=== PATIENT | male | born 1970 | race Caucasian/White ===

== ENCOUNTER → 2020-04-24 08:55 | Day surgery (SDC) | payer OTHER, SELFPAY ==
[2020-04-24 10:11] VITALS: BMI 18.8
[2020-04-24] MEDS: vedolizumab 300 MG in sodium chloride 0.9% 250 ML 500 MG IV (10:16)
[2020-04-24 10:17] VITALS: BP 120/79; PULSE 107; RESP 18; TEMP 36.2; O2SAT 98
== END ==
PROVIDERS: Visit Provider Nurse Practitioner
DX: G12.21 Amyotrophic lateral sclerosis (principal)
CPT/HCPCS: 96365; J3380; J7050

== ENCOUNTER → 2020-05-14 17:35 | Outpatient (BNVA) | payer OTHER, SELFPAY | PROVIDERS: Visit Provider Dermatology | DX: D48.9 Neoplasm of uncertain behavior, unspecified (principal) | CPT/HCPCS: 88304 ==

== ENCOUNTER 2020-06-19 09:20 | Outpatient (CLI) | payer OTHER, SELFPAY ==
[2020-06-19 09:41] VITALS: BP 108/68; PULSE 108; RESP 18; TEMP 36.4; O2SAT 99
[2020-06-19] MEDS: vedolizumab 300 MG in sodium chloride 0.9% 250 ML 500 MG IV (10:07)
== END 2020-06-19 09:21 | disposition home or self-care (01) ==
PROVIDERS: PCP Family Medicine; Visit Provider Nurse Practitioner
DX: G12.21 Amyotrophic lateral sclerosis (principal)
CPT/HCPCS: 96365; J3380; J7050

== ENCOUNTER 2020-07-05 11:19 | Observation (INO) | payer OTHER, SELFPAY ==
[2020-07-05 11:41] VITALS: BP 107/74; PULSE 110; RESP 18; TEMP 36.3; O2SAT 100; BMI 18.4
--- NOTE | 2020-07-05 14:12 | ED_ITS ---
HPI - COVID General: Chief Complaint: COVID symptoms Stated Complaint: COVID+ 07/03-WORSENING SYMPTOMS Time Seen by Provider: 07/05/20 13:09 Source: patient Mode of arrival: ambulatory Limitations: no limitations Triage information: Has fever, cough or shortness of breath . Exposure to COVID + person last 14 days History of Present Illness: HPI Narrative: Started feeling sick 1 week ago, got tested 3 days ago for COVID-19 and he got results today that he was Covid positive. The patient has ALS and Crohn's disease and takes immunosuppressants for the Crohn's disease MD complaint: known COVID positive Prior covid testing: yes, results known COVID 19 common symptoms: positive fever(s), chills, cough, non-productive cough, fatigue, body aches and throat pain; negative productive cough, dyspnea, headache(s), loss of sense of smell and/or taste, nasal congestion, nausea, vomiting or diarrhea COVID 19 other sytmptoms: negative chest pressure, chest pain, pleuritic pain, requiring oxygen, requiring more oxygen, respiratory distress, cyanosis, lethargy, confusion or new neurological complaints Onset (ago): day(s) (7) Severity: moderate Pertinent comorbid conditions: immunocompromised state Treatment prior to arrival: none COVID Results: No Data to Display Review of Systems General: Reports: 10 or more systems reviewed and unremarkable except in HPI and below Const: Reports: fever(s), chills, body aches and fatigue Eyes: Denies: change in vision or blurry vision ENMT: Reports: throat pain; Denies: nasal congestion Card: Denies: chest pain Resp: Reports: non-productive cough; Denies: dyspnea or productive cough GI: Denies: nausea, vomiting or diarrhea : Denies: flank pain, dysuria, urinary frequency, urinary urgency or urinary hesitancy Musc: Denies: neck pain, back pain or extremity swelling Skin/Breast: Denies: rash, pruritus or erythema Neuro: Denies: headache(s) or confusion Endo: Denies: polyuria, polydipsia or tired all the time PFS ED PFSH: Family History Denies family history of Diabetes Hypertension Social History Smoking and tobacco status: never smoked Alcohol intake: current Alcohol intake frequency: holidays/special occasions only History of recent travel: No Physical Exam Const: COMMON NORMALS: no acute distress, average body habitus, patient oriented x3, no limitations, healthy appearing, alert and well nourished Neck/C-Spine: COMMON NORMALS: no meningeal signs and no JVD Resp: COMMON NORMALS: normal respiratory effort, No retractions, No use of accessory muscles, clear to auscultation bilaterally and percussion normal AUSCULTATION: clear to auscultation bilaterally PERCUSSION: percussion normal Cardio: COMMON NORMALS: no JVD, regular rate, regular rhythm, S1 normal heart sound present, S2 normal heart sound present, No gallops present (Cardio), No clicks present (Cardio), No murmurs present (Cardio), No rub (Cardio) and Peripheral pulses 2+ throughout RATE: regular rate RHYTHM: regular rhythm HEART SOUNDS: S1 normal heart sound present and S2 normal heart sound present PERIPHERAL PULSES: Peripheral pulses 2+ throughout GI: COMMON NORMALS: Normal to inspection, nondistended, normoactive bowel sounds present, Soft to palpation, non-tender, No hepatosplenomegaly present, no masses and no bruits PALPATION: Yes Soft to palpation and Yes No hepatosplenomegaly present Extremity: COMMON NORMALS: normal to inspection, full ROM, capillary refill normal, no calf tenderness and no pedal edema Neuro: COMMON NORMALS: patient oriented x3 SENSORIUM/ORIENTATION: Yes alert MENINGEAL SIGNS: Yes no meningeal signs Skin: COMMON NORMALS: no rashes or lesions noted, no wounds, turgor normal, no jaundice, no petechiae and no mottling GENERAL SKIN EXAM: no rashes or lesions noted and turgor normal Course ED course: 49-year-old male on immunosuppressive therapy who tested positive for COVID-19. He is not hypoxic and not requiring oxygen. He meets the criteria for the monoclonal antibody infusion and he will be given the medication. Vital Signs: Vital signs: Vital Signs Temperature 98.4 F 07/05/20 17:28 Pulse Rate 99 07/05/20 17:28 Respiratory Rate 20 H 07/05/20 17:28 Blood Pressure 107/77 07/05/20 17:28 Pulse Oximetry 94 12/20/20 17:28 MDM - COVID MDM Narrative: Medical decision making narrative: 49-year-old male with COVID- 19 and who was medically cleared for monoclonal antibody infusion. Vital signs were normal in the emergency department, including normal pulse oximetry readings. He is not requiring oxygen and is discharged to the outpatient department for monoclonal antibody infusion Lab Data: Attestation: I reviewed the patient's lab results. COVID Results: No Data to Display Monoclonal Antibody Treatments Inclusion/Exclusion Criteria weight >/= 40 kg and + direct Sars-Cov-2 test less than 7-10 days ago receiving immunosuppressive therapy not requiring hospitalization, not requiring oxygen (if not chronically on o xygen) and no increase oxygen requirement (if chronically on oxygen) Patient education patient/family/caregiver received/reviewed fact sheet, Emergency Use Authorization/unapproved drug status discussed with patient/family/caregiver, alternatives to this treatment discussed with patient/family/caregiver, risks and benefits of medication reviewed with patient/family/caregiver, patient/family/caregiver given opportunity for questions, which were answered and patient consents to receiving Monoclonal Antibody Treatment Plan for treatment Meets criteria for Monoclonal Antibody infusion Ordering Monoclonal Antibody infusion for today Discharge Plan Discharge Patient Disposition: Placed in Observation Admit Provider: Narayan Fine Coding Level of Care Code ED [employer] for Clary Yo
[2020-07-05 15:30] VITALS: BP 109/80; PULSE 95; RESP 18; TEMP 36.6; O2SAT 95
[2020-07-05 15:45] VITALS: BP 105/73; PULSE 92; RESP 20; TEMP 36.8; O2SAT 96
[2020-07-05 16:00] VITALS: BP 105/72; PULSE 100; RESP 18; TEMP 36.6; O2SAT 95
[2020-07-05 16:30] VITALS: BP 110/77; PULSE 97; RESP 17; TEMP 36.6; O2SAT 96
[2020-07-05 16:47] LABS: Rapid Strep A Test Negative (Negative)
[2020-07-05 17:28] VITALS: BP 107/77; PULSE 99; RESP 20; TEMP 36.9; O2SAT 94
[2020-07-06 01:18] VITALS: BP 107/77; PULSE 99; RESP 20; TEMP 36.9; O2SAT 94
--- NOTE | 2020-07-06 15:52 | DCPLANNER ---
Addendum entered by Vonnie Costa 07/15/20 15:14: later entry - caseworker protective services called patient on 07.08.20 and was unable to speak with patient, left a voicemail for patient to return medical case manager phone call. Addendum entered by Vonnie Costa 07/15/20 15:13: phone manager called to check on patient on day 10 after getting the infusion. phone manager left a voicemail for patient to return medical case manager phone call. Original Note: phone manager had message that patient received the BAM infusion. phone manager called to check on patient after receiving the infusion. Patient stated that he tolerated the infusion well. Before infusion he had a fever, had an extremly sore throat, and had some dizziness. After infusion patient stated that he does not have a fever, he does not have a sore throat, no dizziness, still a little weak. Patient stated that he can feel a big difference. Asked patient about a follow up appointment, patient stated that he does not feel a need for CM to schedule a follow up appointment with primary care, [facility] and says that he is in [facility] with [facility] and if he needs an appointment that he will schedule it.
== END 2020-07-05 18:00 | disposition home or self-care (01) ==
LOC: ER 13:48 → MEDSURG 14:33
PROVIDERS: Admitting Provider Internal Medicine; Emergency Provider Family Medicine; PCP Family Medicine; Visit Provider Hospitalist
DX: U07.1 COVID-19 (principal)
CPT/HCPCS: 12345; 87081; 87880; 96365; 99281; 99283; G0378; J7050

== ENCOUNTER → 2020-08-14 09:09 | Day surgery (SDC) | payer OTHER, SELFPAY ==
[2020-08-14 09:41] VITALS: BMI 17.7
[2020-08-14 09:47] VITALS: BP 108/69; PULSE 113; RESP 16; TEMP 36.6; O2SAT 99
[2020-08-14] MEDS: vedolizumab 300 MG in sodium chloride 0.9% 250 ML 500 MG IV (10:12)
== END ==
PROVIDERS: PCP Family Medicine; Visit Provider Nurse Practitioner
DX: G12.21 Amyotrophic lateral sclerosis (principal)
CPT/HCPCS: 96365; J3380; J7050

== ENCOUNTER → 2020-10-09 09:33 | Day surgery (SDC) | payer OTHER, SELFPAY ==
[2020-10-09 10:01] VITALS: BP 113/78; PULSE 107; RESP 16; TEMP 36.6; O2SAT 99; BMI 19.2
[2020-10-09 10:10] LABS: Basophils % 0.4 %; Eosinophils # 0.1 10^3/uL (0.0-0.8); Eosinophils % 0.9 %; Hematocrit 44.7 % (42.0-52.0); Hemoglobin 14.3 g/dL (11.7-16.6); Lymphocytes # 1.7 10^3/uL (0.8-4.8); Lymphocytes % 30.3 %; Mean Corpuscular Hemoglobin 30.9 pg (28.0-34.0); Mean Corpuscular Volume 96.5 fL (80-94); Mean Platelet Volume 10.6 fL (7.4-10.4); Monocytes # 0.4 10^3/uL (0.2-0.9); Monocytes % 7.2 %; Neutrophils # 3.46 10^3/uL (1.8-7.7); Nucleated Red Blood Cells % 0 %; Platelet Count 340 10^3/cmm (130-400); Red Blood Count 4.63 10^6/uL (4.1-5.3); Red Cell Distribution Width 13.4 % (12.1-15.1); White Blood Count 5.7 10^3/uL (4.0-10.0)
[2020-10-09] MEDS: vedolizumab 300 MG in sodium chloride 0.9% 250 ML 500 MG IV (10:16)
== END ==
PROVIDERS: PCP Family Medicine; Visit Provider Nurse Practitioner
DX: G12.21 Amyotrophic lateral sclerosis (principal)
CPT/HCPCS: 36415; 85025; 96365; J3380; J7050

== ENCOUNTER → 2020-12-04 08:58 | Day surgery (SDC) | payer OTHER, SELFPAY ==
[2020-12-04 09:22] VITALS: BP 116/86; PULSE 118; RESP 20; TEMP 36.5; O2SAT 99
[2020-12-04] MEDS: vedolizumab 300 MG in sodium chloride 0.9% 250 ML 500 MG IV (09:25)
== END ==
PROVIDERS: PCP Family Medicine; Visit Provider Nurse Practitioner
DX: G12.21 Amyotrophic lateral sclerosis (principal)
CPT/HCPCS: 96365; J3380; J7050

== ENCOUNTER → 2021-01-29 08:49 | Day surgery (SDC) | payer OTHER, SELFPAY ==
[2021-01-29 09:09] VITALS: BMI 17.9
[2021-01-29 09:11] VITALS: BP 95/86; PULSE 108; RESP 16; TEMP 36.4; O2SAT 98
[2021-01-29 09:20] LABS: Basophils % 0.3 %; Eosinophils # 0.1 10^3/uL (0.0-0.8); Eosinophils % 0.9 %; Hematocrit 44.2 % (42.0-52.0); Hemoglobin 14.2 g/dL (11.7-16.6); Lymphocytes # 1.8 10^3/uL (0.8-4.8); Lymphocytes % 27.2 %; Mean Corpuscular HGB Conc 32.1 g/dL (30.0-36.0); Mean Corpuscular Hemoglobin 31.2 pg (28.0-34.0); Mean Corpuscular Volume 97.1 fL (80-94); Mean Platelet Volume 10.9 fL (7.4-10.4); Monocytes # 0.3 10^3/uL (0.2-0.9); Neutrophils # 4.35 10^3/uL (1.8-7.7); Neutrophils % 66.4 %; Nucleated Red Blood Cells % 0 %; Platelet Count 331 10^3/cmm (130-400); Red Blood Count 4.55 10^6/uL (4.1-5.3); Red Cell Distribution Width 13.1 % (12.1-15.1); White Blood Count 6.6 10^3/uL (4.0-10.0)
[2021-01-29] MEDS: vedolizumab 300 MG in sodium chloride 0.9% 250 ML 500 MG IV (09:30)
== END ==
PROVIDERS: PCP Family Medicine; Visit Provider Nurse Practitioner
DX: K51.90 Ulcerative colitis, unspecified, without complications (principal)
CPT/HCPCS: 36415; 85025; 96365; J3380; J7050

== ENCOUNTER → 2021-03-26 09:33 | Day surgery (SDC) | payer OTHER, SELFPAY ==
[2021-03-26 09:42] VITALS: BP 117/66; PULSE 108; RESP 16; TEMP 36.6; O2SAT 98
[2021-03-26 09:44] VITALS: BMI 17.4
[2021-03-26] MEDS: vedolizumab 300 MG in sodium chloride 0.9% 250 ML 500 MG IV (09:58)
== END ==
PROVIDERS: PCP Family Medicine; Visit Provider Nurse Practitioner
DX: K51.90 Ulcerative colitis, unspecified, without complications (principal)
CPT/HCPCS: 96365; J3380; J7050

== ENCOUNTER 2021-03-29 12:09 | Outpatient (CLI) | payer OTHER, SELFPAY ==
[2021-03-29 12:52] LABS: Basophils % 0.4 %; Eosinophils # 0.1 10^3/uL (0.0-0.8); Eosinophils % 0.6 %; Hematocrit 44.9 % (42.0-52.0); Hemoglobin 14.3 g/dL (11.7-16.6); Lymphocytes # 1.6 10^3/uL (0.8-4.8); Mean Corpuscular HGB Conc 31.8 g/dL (30.0-36.0); Mean Corpuscular Hemoglobin 31.4 pg (28.0-34.0); Mean Corpuscular Volume 98.7 fl (80-94); Mean Platelet Volume 10.6 fL (7.4-10.4); Monocytes # 0.7 10^3/uL (0.2-0.9); Monocytes % 8.5 %; Neutrophils % 70.4 %; Nucleated Red Blood Cells % 0 %; Platelet Count 335 10^3/cmm (130-400); Red Blood Count 4.55 10^6/uL (4.1-5.3); White Blood Count 8.1 10^3/uL (4.0-10.0)
== END 2021-03-29 12:10 | disposition home or self-care (01) ==
LOC: LAB 12:21
PROVIDERS: PCP Nurse Practitioner; Visit Provider Nurse Practitioner
DX: K51.90 Ulcerative colitis, unspecified, without complications (principal)
CPT/HCPCS: 36415; 85025

== ENCOUNTER → 2021-05-20 10:23 | Day surgery (SDC) | payer OTHER, SELFPAY ==
[2021-05-20 10:44] VITALS: BP 105/77; PULSE 115; RESP 18; TEMP 36.4; O2SAT 99
[2021-05-20] MEDS: vedolizumab 300 MG in sodium chloride 0.9% 250 ML 250 MG IV (11:06)
[2021-05-20 11:17] LABS: Basophils % 0.6 %; Eosinophils # 0.1 10^3/uL (0.0-0.8); Eosinophils % 1.2 %; Hematocrit 45.9 % (42.0-52.0); Hemoglobin 14.6 g/dL (11.7-16.6); Lymphocytes # 1.6 10^3/uL (0.8-4.8); Lymphocytes % 25.1 %; Mean Corpuscular HGB Conc 31.8 g/dL (30.0-36.0); Mean Corpuscular Hemoglobin 30.9 pg (28.0-34.0); Mean Platelet Volume 11.4 fL (7.4-10.4); Monocytes # 0.5 10^3/uL (0.2-0.9); Monocytes % 7.7 %; Neutrophils # 4.24 10^3/uL (1.8-7.7); Neutrophils % 65.4 %; Nucleated Red Blood Cells % 0 %; Platelet Count 375 10^3/cmm (130-400); Red Blood Count 4.73 10^6/uL (4.1-5.3); Red Cell Distribution Width 13.2 % (12.1-15.1); White Blood Count 6.5 10^3/uL (4.0-10.0)
== END ==
PROVIDERS: PCP Nurse Practitioner; Visit Provider Nurse Practitioner
DX: K51.90 Ulcerative colitis, unspecified, without complications (principal)
CPT/HCPCS: 85025; 96365; J3380; J7050

== ENCOUNTER 2021-06-17 14:22 | Outpatient (CLI) | payer OTHER, SELFPAY | END 2021-06-17 14:23 | disposition home or self-care (01) | LOC: WOUND 14:24 | PROVIDERS: PCP Nurse Practitioner; Visit Provider Emergency Medicine | DX: M21.372 Foot drop, left foot (principal); G12.21 Amyotrophic lateral sclerosis | CPT/HCPCS: 99212 ==

== ENCOUNTER → 2021-07-08 09:38 | Day surgery (SDC) | payer OTHER, SELFPAY ==
[2021-07-08 09:45] VITALS: BP 116/72; PULSE 112; RESP 18; TEMP 36.2; O2SAT 100; BMI 16.9
[2021-07-08 10:03] LABS: Basophils % 0.4 %; Eosinophils % 0.6 %; Hemoglobin 14.4 g/dL (11.7-16.6); Lymphocytes # 1.6 10^3/uL (0.8-4.8); Lymphocytes % 30.5 %; Mean Corpuscular HGB Conc 31.3 g/dL (30.0-36.0); Mean Corpuscular Hemoglobin 30.7 pg (28.0-34.0); Mean Corpuscular Volume 98.1 fl (80-94); Mean Platelet Volume 11.1 fL (7.4-10.4); Monocytes # 0.3 10^3/uL (0.2-0.9); Monocytes % 6.6 %; Neutrophils # 3.18 10^3/uL (1.8-7.7); Neutrophils % 61.7 %; Nucleated Red Blood Cells % 0 %; Platelet Count 334 10^3/cmm (130-400); Red Blood Count 4.69 10^6/uL (4.1-5.3); Red Cell Distribution Width 12.9 % (12.1-15.1); White Blood Count 5.2 10^3/uL (4.0-10.0)
[2021-07-08] MEDS: vedolizumab 300 MG in sodium chloride 0.9% 250 ML 500 MG IV (10:32)
== END ==
PROVIDERS: PCP Nurse Practitioner; Visit Provider Nurse Practitioner
DX: K51.90 Ulcerative colitis, unspecified, without complications (principal)
CPT/HCPCS: 36415; 85025; 96365; J3380; J7050

== ENCOUNTER 2021-08-26 13:00 | Outpatient (RCR) | payer OTHER, SELFPAY | END 2021-09-13 23:59 | disposition home or self-care (01) | LOC: SOT 13:00 | PROVIDERS: PCP Nurse Practitioner; Visit Provider Nurse Practitioner | DX: G12.21 Amyotrophic lateral sclerosis (principal) | CPT/HCPCS: 97165 ==

== ENCOUNTER → 2021-09-02 10:11 | Day surgery (SDC) | payer OTHER, SELFPAY ==
[2021-09-02] MEDS: vedolizumab 300 MG in sodium chloride 0.9% 250 ML 500 MG IV (10:31)
[2021-09-02 10:38] LABS: Basophils % 0.5 %; Eosinophils # 0.1 10^3/uL (0.0-0.8); Eosinophils % 0.9 %; Hematocrit 45.9 % (42.0-52.0); Hemoglobin 14.5 g/dL (11.7-16.6); Lymphocytes # 1.4 10^3/uL (0.8-4.8); Lymphocytes % 25.4 %; Mean Corpuscular HGB Conc 31.6 g/dL (30.0-36.0); Mean Corpuscular Hemoglobin 30.6 pg (28.0-34.0); Mean Corpuscular Volume 96.8 fl (80-94); Mean Platelet Volume 11.1 fL (7.4-10.4); Monocytes # 0.4 10^3/uL (0.2-0.9); Monocytes % 6.7 %; Neutrophils # 3.68 10^3/uL (1.8-7.7); Neutrophils % 66.3 %; Nucleated Red Blood Cells % 0 %; Platelet Count 330 10^3/cmm (130-400); Red Blood Count 4.74 10^6/uL (4.1-5.3); Red Cell Distribution Width 12.7 % (12.1-15.1); White Blood Count 5.6 10^3/uL (4.0-10.0)
[2021-09-02 11:05] VITALS: BP 107/81; PULSE 107; RESP 18; TEMP 36.3; O2SAT 96
== END ==
PROVIDERS: PCP Nurse Practitioner; Visit Provider Nurse Practitioner
DX: G12.21 Amyotrophic lateral sclerosis (principal)
CPT/HCPCS: 85025; 96365; J3380; J7050

== ENCOUNTER → 2021-10-28 10:04 | Day surgery (SDC) | payer OTHER, SELFPAY ==
[2021-10-28] MEDS: vedolizumab 300 MG in sodium chloride 0.9% 250 ML 250 MG IV (10:16)
[2021-10-28 10:19] VITALS: BP 113/74; PULSE 107; RESP 18; TEMP 36.4; O2SAT 98
[2021-10-28 11:37] LABS: Basophils % 0.3 %; Eosinophils # 0.1 10^3/uL (0.0-0.8); Eosinophils % 0.8 %; Hemoglobin 13.6 g/dL (11.7-16.6); Lymphocytes # 1.4 10^3/uL (0.8-4.8); Lymphocytes % 23.3 %; Mean Corpuscular HGB Conc 32.4 g/dL (30.0-36.0); Mean Corpuscular Hemoglobin 30.8 pg (28.0-34.0); Mean Corpuscular Volume 95.2 fl (80-94); Mean Platelet Volume 11.4 fL (7.4-10.4); Monocytes # 0.5 10^3/uL (0.2-0.9); Monocytes % 8.6 %; Neutrophils # 4.02 10^3/uL (1.8-7.7); Neutrophils % 66.8 %; Nucleated Red Blood Cells # 0.1 /100WBC; Nucleated Red Blood Cells % 0.8 %; Platelet Count 376 10^3/cmm (130-400); Red Blood Count 4.41 10^6/uL (4.1-5.3); Red Cell Distribution Width 13.1 % (12.1-15.1)
== END ==
PROVIDERS: PCP Nurse Practitioner; Visit Provider Nurse Practitioner
DX: K51.90 Ulcerative colitis, unspecified, without complications (principal)
CPT/HCPCS: 36415; 85025; 96365; J3380; J7050

== ENCOUNTER → 2021-12-23 09:16 | Day surgery (SDC) | payer OTHER, SELFPAY ==
[2021-12-23] MEDS: vedolizumab 300 MG in sodium chloride 0.9% 250 ML 330 MG IV (09:24)
[2021-12-23 09:28] LABS: Basophils % 0.4 %; Eosinophils # 0.1 10^3/uL (0.0-0.8); Eosinophils % 1.3 %; Hematocrit 45.7 % (42.0-52.0); Hemoglobin 14.3 g/dL (11.7-16.6); Lymphocytes # 1.3 10^3/uL (0.8-4.8); Lymphocytes % 23.4 %; Mean Corpuscular HGB Conc 31.3 g/dL (30.0-36.0); Mean Corpuscular Volume 98.9 fl (80-94); Mean Platelet Volume 10.8 fL (7.4-10.4); Monocytes # 0.4 10^3/uL (0.2-0.9); Monocytes % 6.6 %; Neutrophils # 3.81 10^3/uL (1.8-7.7); Neutrophils % 67.9 %; Nucleated Red Blood Cells % 0 %; Platelet Count 380 10^3/cmm (130-400); Red Blood Count 4.62 10^6/uL (4.1-5.3); Red Cell Distribution Width 13.2 % (12.1-15.1); White Blood Count 5.6 10^3/uL (4.0-10.0)
[2021-12-23 09:36] VITALS: BP 108/71; PULSE 100; RESP 18; TEMP 36.6; O2SAT 99
== END ==
PROVIDERS: PCP Nurse Practitioner; Visit Provider Nurse Practitioner
DX: K51.90 Ulcerative colitis, unspecified, without complications (principal)
CPT/HCPCS: 85025; 96365; J3380; J7050

== ENCOUNTER 2022-01-21 12:06 | Emergency (ER) | payer OTHER, SELFPAY ==
[2022-01-21] VITALS (7 sets, daily range): BP systolic 99–117; BP diastolic 66–83; PULSE 102–112; RESP 16–18; TEMP 37.1; O2SAT 94–100; BMI 15.9
--- NOTE | 2022-01-21 12:59 | XR_ITS ---
WS: [id number] Portable AP semiupright chest, 01/21/2022 Clinical Data: dyspnea/cough Comparison: None. Findings: No nodules, masses or effusions are seen. The heart is normal. The pulmonary vascularity is not increased. No pneumonia or pneumothorax is seen. XR/XR chest 1V portable [id number] Impression: Negative chest.
--- NOTE | 2022-01-21 13:00 | ECG_ITS ---
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 Measurements Intervals [place] Rate: 105 P: 75 MT: 162 QRS: 82 QRSD: 66 T: 81 QT: 293 QTc: 388 Interpretive Statements SINUS TACHYCARDIA POSSIBLE LEFT ATRIAL ENLARGEMENT [-0.1mV P-WAVE IN V1/V2] ABNORMAL RHYTHM ECG No previous ECG available for comparison Electronically Signed On 01-21-2022 18:14:36 CDT by Jesus Best M.D. [id number]
[2022-01-21 13:14] LABS: Basophils % 0.8 %; Hemoglobin 14.9 g/dL (11.7-16.6); Lymphocytes # 0.5 10^3/uL (0.8-4.8); Mean Corpuscular HGB Conc 31.7 g/dL (30.0-36.0); Mean Corpuscular Hemoglobin 30.8 pg (28.0-34.0); Mean Corpuscular Volume 97.3 fl (80-94); Mean Platelet Volume 10.4 fL (7.4-10.4); Monocytes # 0.2 10^3/uL (0.2-0.9); Monocytes % 6.5 %; Neutrophils # 2.73 10^3/uL (1.8-7.7); Neutrophils % 77.4 %; Nucleated Red Blood Cells % 0 %; Platelet Count 204 10^3/cmm (130-400); Red Blood Count 4.83 10^6/uL (4.1-5.3); Red Cell Distribution Width 12.9 % (12.1-15.1); White Blood Count 3.5 10^3/uL (4.0-10.0)
[2022-01-21 13:33] LABS: Alanine Aminotransferase 47 U/L (0-41); Albumin Level 4.2 g/dL (3.5-5.2); Alkaline Phosphatase 69 IU/L (40-130); Anion Gap 14.8 (5-19); Aspartate Amino Transferase 51 U/L (0-40); Blood Urea Nitrogen 10 mg/dL (6-20); Calcium 9.4 mg/dL (8.5-10.5); Carbon Dioxide 30 mmol/L (22-29); Chloride 99 mmol/L (98-107); Globulin 2.9 g/dL (1.3-4.6); Glomerular Filtration Rate 175.3 mL/min (90-130); Glucose 98 mg/dL (65-115); Osmolality Calculated 287 mOsm/kg (285-295); Potassium 4.8 mmol/L (3.5-5.1); Sodium 139 mmol/L (136-145); Total Bilirubin 0.2 mg/dL (0.15-1.2); Total Protein 7.1 g/dL (6.6-8.7)
--- NOTE | 2022-01-21 13:37 | W.ED.FEVER ---
HPI - Fever General: Chief Complaint: Fever Stated Complaint: Fever, hx of ALS Time Seen by Provider: 01/21/22 12:58 Source: patient Mode of arrival: ambulatory Limitations: no limitations History of Present Illness: 51-year-old male presents emergency room complaining of fever off and on for last 3 days. Has been treating with Tylenol at home which has been somewhat effective but he continues to recur. Patient has advanced ALS but is still able to remain somewhat ambulatory. He has not had any other symptoms. He denies any skin ulcers or decubitus ulcers. He has not had any shortness of breath or cough or wheezing is not had any abdominal pain no dysuria urgency or frequency. They did do a home COVID test by antigen that was negative. He denies any other symptoms no vomiting or diarrhea MD elicited complaint: fever Onset (ago): day(s) Exacerbating factors: nothing Relieving factors: nothing Associated symptoms: Deny abdominal pain, flank pain, chills, chest pain, confusion, cough, diarrhea, dysuria, extremity pain, headache(s), myalgias, nasal congestion, nausea, night sweats, rash, rhinorrhea, short of breath, sinus pain, stiffness, sore throat, vaginal discharge, vomiting or weight loss Treatments prior to arrival fever: acetaminophen Review of Systems Const: Reports: fever(s), body aches, fatigue and malaise; Denies: chills or night sweats ENMT: Denies: nasal congestion or sinus pain Card: Denies: chest pain GI: Denies: abdominal pain, nausea, vomiting or diarrhea : Denies: flank pain or dysuria Musc: Denies: neck pain, back pain or extremity pain Skin/Breast: Denies: rash Neuro: Denies: headache(s) or confusion PFS ED PFSH: Medical History ALS (amyotrophic lateral sclerosis) Ulcerative (chronic) enterocolitis Surgical History History of esophageal surgery History of oral surgery Family History Denies family history of Diabetes Hypertension Social History Smoking and tobacco status: never smoked Alcohol intake: current Alcohol intake frequency: holidays/special occasions only History of recent travel: No Physical Exam Const: COMMON NORMALS: no acute distress GENERAL APPEARANCE: cooperative and comfortable ORIENTATION/CONSCIOUSNESS: Yes awake, Yes oriented to person, Yes oriented to place and Yes oriented to time HENMT: COMMON NORMALS: normocephalic, atraumatic, hearing grossly normal bilaterally, external ears normal, EAC's normal, TM's normal bilaterally, Normal nasal mucous membranes and turbinates present, moist oral mucous membranes and oropharynx normal HEAD & SCALP: normocephalic and atraumatic NOSE: Normal nasal mucous membranes and turbinates present EXTERNAL EAR: Yes external ears normal EXTERNAL AUDITORY CANAL: EAC's normal TYMPANIC MEMBRANE: TM's normal bilaterally Eye: COMMON NORMALS: Equal, round and reactive pupils present, EOMs intact bilaterally, conjunctivae normal and no scleral icterus CONJUNCTIVA: Yes conjunctivae normal PUPIL: Yes Equal, round and reactive pupils present Neck/C-Spine: COMMON NORMALS: full ROM, no lymphadenopathy, supple and no JVD Lymph: LYMPHATIC: no lymphadenopathy noted and no lymphedema noted Resp: COMMON NORMALS: normal respiratory effort, No retractions, No use of accessory muscles and clear to auscultation bilaterally AUSCULTATION: clear to auscultation bilaterally Cardio: COMMON NORMALS: no JVD, regular rate, regular rhythm and No murmurs present (Cardio) RATE: regular rate RHYTHM: regular rhythm GI: COMMON NORMALS: Soft to palpation and No hepatosplenomegaly present AUSCULTATION: Yes normoactive bowel sounds PALPATION: Yes Soft to palpation, No Tenderness to palpation present (GI), No Guarding due to palpation present (GI) and Yes No hepatosplenomegaly present Extremity: COMMON NORMALS: normal to inspection, capillary refill normal, no clubbing, cyanosis or edema, no calf tenderness and no pedal edema Neuro: SENSORIUM/ORIENTATION: Yes oriented to person, Yes oriented to place and Yes oriented to time Skin: COMMON NORMALS: no rashes or lesions noted GENERAL SKIN EXAM: no rashes or lesions noted Course Vital Signs: Vital signs: Vital Signs Temperature 98.7 F 01/21/22 12:40 Pulse Rate 103 H 01/21/22 16:00 Respiratory Rate 16 01/21/22 13:00 Blood Pressure 99/70 01/21/22 14:30 Pulse Oximetry 100 01/21/22 16:00 MDM - Fever Medical Decision Making Discussed options with the patient who prefer to go home we will start on Levaquin 750 p.o. daily. Initially he had declined and then his family called back and asked that we send that in so was called into [employer]. Also added a tick panel as patient reported he had been bit had some ticks recently. If he has any worsening or change return otherwise follow-up with his primary care Differential Diagnosis Unlikely calculus of kidney Medical Records I reviewed the patient's medical records. Lab Data I reviewed the patient's lab results. : 01/21/22 13:07 01/21/22 13:07 Radiology Impressions Chest X-Ray 01/21/22 12:59 Impression: Negative chest. Laboratory Results WBC 3.5 10^3/uL (4.0-10.0) L 01/21/22 13:07 RBC 4.83 10^6/uL (4.1-5.3) 01/21/22 13:07 Hgb 14.9 g/dL (11.7-16.6) 01/21/22 13:07 Hct 47.0 % (42.0-52.0) 01/21/22 13:07 MCV 97.3 fl (80-94) H 01/21/22 13:07 MCH 30.8 pg (28.0-34.0) 01/21/22 13:07 MCHC 31.7 g/dL (30.0-36.0) 01/21/22 13:07 RDW 12.9 % (12.1-15.1) 01/21/22 13:07 Plt Count 204 10^3/cmm (130-400) 01/21/22 13:07 MPV 10.4 fL (7.4-10.4) 01/21/22 13:07 Neut % (Auto) 77.4 % 01/21/22 13:07 Lymph % (Auto) 15.0 % 01/21/22 13:07 [place] % (Auto) 6.5 % 01/21/22 13:07 Eos % (Auto) 0.0 % 01/21/22 13:07 Baso % (Auto) 0.8 % 01/21/22 13:07 Neut # (Auto) 2.73 10^3/uL (1.8-7.7) 01/21/22 13:07 Lymph # (Auto) 0.5 10^3/uL (0.8-4.8) L 01/21/22 13:07 [place] # (Auto) 0.2 10^3/uL (0.2-0.9) 01/21/22 13:07 Eos # (Auto) 0.0 10^3/uL (0.0-0.8) 01/21/22 13:07 Baso # (Auto) 0.0 10^3/uL (0.0-0.1) 01/21/22 13:07 Nucleated RBC % (auto) 0 % 01/21/22 13:07 Nucleated RBCs # 0.0 /100WBC 01/21/22 13:07 Sodium 139 mmol/L (136-145) 01/21/22 13:07 Potassium 4.8 mmol/L (3.5-5.1) 01/21/22 13:07 Chloride 99 mmol/L (98-107) 01/21/22 13:07 Carbon Dioxide 30 mmol/L (22-29) H 01/21/22 13:07 Anion Gap 14.8 (5-19) 01/21/22 13:07 BUN 10 mg/dL (6-20) 01/21/22 13:07 Creatinine 0.5 mg/dL (0.7-1.2) L 01/21/22 13:07 GFR Calculation 175.3 mL/min (90-130) H 01/21/22 13:07 Glucose 98 mg/dL (65-115) 01/21/22 13:07 Calculated Osmolality 287 mOsm/kg (285-295) 01/21/22 13:07 Calcium 9.4 mg/dL (8.5-10.5) 01/21/22 13:07 Total Bilirubin 0.2 mg/dL (0.15-1.2) 01/21/22 13:07 AST 51 U/L (0-40) H 01/21/22 13:07 ALT 47 U/L (0-41) H 01/21/22 13:07 Alkaline Phosphatase 69 IU/L (40-130) 01/21/22 13:07 Total Protein 7.1 g/dL (6.6-8.7) 01/21/22 13:07 Albumin 4.2 g/dL (3.5-5.2) 01/21/22 13:07 Globulin 2.9 g/dL (1.3-4.6) 01/21/22 13:07 Urine Color Yellow (Yellow) 01/21/22 13:57 Urine Appearance Clear (CLEAR) 01/21/22 13:57 Urine pH 5 (5-7) 01/21/22 13:57 Ur Specific [place] 1.010 (1.005-1.030) 01/21/22 13:57 Urine Protein Neg (Negative) 01/21/22 13:57 Urine Glucose (UA) Norm (Normal) 01/21/22 13:57 Urine Ketones Negative (Negative) 01/21/22 13:57 Urine Blood Neg (Negative) 01/21/22 13:57 Urine Nitrate Negative (Negative) 01/21/22 13:57 Urine Bilirubin Neg (Negative) 01/21/22 13:57 Urine Urobilinogen Norm mg/dL (Negative) 01/21/22 13:57 Ur Leukocyte Esterase Negative (Negative) 01/21/22 13:57 Coronavirus 229E (PCR) Not detected (NOT DETECT) 01/21/22 14:34 SARS-CoV-2 (PCR) Not detected (NOT DETECT) 01/21/22 14:34 Discharge Plan Discharge Patient Disposition: Home Clinical Impression: Viral infection, ALS (amyotrophic lateral sclerosis) Condition: Stable Prescriptions: No Action mupirocin 2 % ointment 1 applic topical BID Qty: 22 1RF Rx Instructions: Apply to ear BID until healed riluzole 50 mg Tablet 50 mg PO Q12H 0RF omeprazole-sodium bicarbonate 20-1,680 mg Packet 1 packet PO DAILY 0RF Entyvio 300 mg Recon Soln 300 mg IV DIRECTED 0RF Rx Instructions: every 8 weeks nortriptyline 10 mg Capsule 10 mg PO DAILY 0RF Discharge Orders: Discharge ED (Routine); Ordered 01/24/22 Ordered By: Efraín Blevins Referrals: Chel Weinstein FNP [Primary Care Provider] - Discharge Diet: Usual diet Discharge Activity: Increase activity as tolerated Patient Instructions: Opioid Safety Activity Restrictions/Additional Instructions: Return if your symptoms worsen in any way. Coding Level of Care Code ED Rn Compliance for Chg Fwd Exam Comprehensive
[2022-01-21 14:03] LABS: Add Urine Microscopic? NO; Charge for UA Resulting for Rev
[2022-01-21 14:07] LABS: Bilirubin Urine Neg (Negative); Blood Urine Neg (Negative); Glucose Urine UA Norm (Normal); Ketones Urine Negative (Negative); Leukocyte Esterase Urine Negative (Negative); Nitrate Urine Negative (Negative); Protein Urine Neg (Negative); Urine Appearance Clear (CLEAR); Urine Color Yellow (Yellow); Urobilinogen Urine Norm (Negative); pH Urine 5 (5-7)
[2022-01-21 16:49] LABS: Adenovirus Not Detected (NOT DETECT); Chlamydia Pneumoniae Not Detected (NOT DETECT); Coronavirus 229E,HKU1,NL63,OC4 Not Detected (NOT DETECT); Human Metapneumovirus Not Detected (NOT DETECT); Human Rhinovirus/Enterovirus Not Detected (NOT DETECT); Influenza A Not Detected (NOT DETECT); Influenza A H1 Not Detected (NOT DETECT); Influenza A H1-2009 Not Detected (NOT DETECT); Influenza A H3 Not Detected (NOT DETECT); Influenza B Not Detected (NOT DETECT); Mycoplasma Pneumoniae Not Detected (NOT DETECT); Parainfluenza Virus Type 1 Not Detected (NOT DETECT); Parainfluenza Virus Type 2 Not Detected (NOT DETECT); Parainfluenza Virus Type 3 Not Detected (NOT DETECT); Parainfluenza Virus Type 4 Not Detected (NOT DETECT); Respiratory Syncytial Virus A Not Detected (NOT DETECT); Respiratory Syncytial Virus B Not Detected (NOT DETECT); SARS-COV-2 Not Detected (NOT DETECT)
== END 2022-01-21 17:20 | disposition home or self-care (01) ==
PROVIDERS: Emergency Provider Family Medicine; PCP Nurse Practitioner
DX: B34.9 Viral infection, unspecified (principal); G12.21 Amyotrophic lateral sclerosis
CPT/HCPCS: 71045; 80053; 81003; 85025; 87040; 87635; 93005; 99285

== ENCOUNTER 2022-01-21 18:48 | Outpatient (CLI) | payer OTHER, SELFPAY ==
[2022-01-24 14:12] LABS: Lyme AB Screen <0.90 index
[2022-01-27 21:32] LABS: E. Chaffeensis AB IGG <1:64; E. Chaffeensis AB IGM <1:20
[2022-01-28 17:27] LABS: RMSF IGG NOT DETECTED; RMSF IGM NOT DETECTED
== END 2022-01-21 18:49 | disposition home or self-care (01) ==
PROVIDERS: PCP Nurse Practitioner; Visit Provider Family Medicine
DX: R50.9 Fever, unspecified (principal)
CPT/HCPCS: 86618; 86666; 86757

== ENCOUNTER → 2022-02-17 10:10 | Day surgery (SDC) | payer OTHER, SELFPAY ==
[2022-02-17] MEDS: vedolizumab 300 MG in sodium chloride 0.9% 250 ML 250 MG IV (10:25)
[2022-02-17 10:32] VITALS: BP 98/71; PULSE 105; RESP 18; TEMP 36.1; O2SAT 99
[2022-02-17 10:40] LABS: Basophils % 0.7 %; Eosinophils % 0.2 %; Hematocrit 45.8 % (42.0-52.0); Hemoglobin 14.3 g/dL (11.7-16.6); Lymphocytes % 34.5 %; Mean Corpuscular HGB Conc 31.2 g/dL (30.0-36.0); Mean Corpuscular Volume 99.1 fl (80-94); Mean Platelet Volume 10.1 fL (7.4-10.4); Monocytes # 0.4 10^3/uL (0.2-0.9); Monocytes % 6.1 %; Neutrophils # 3.46 10^3/uL (1.8-7.7); Neutrophils % 58.3 %; Nucleated Red Blood Cells % 0 %; Platelet Count 383 10^3/cmm (130-400); Red Blood Count 4.62 10^6/uL (4.1-5.3); White Blood Count 5.9 10^3/uL (4.0-10.0)
== END ==
PROVIDERS: PCP Nurse Practitioner; Visit Provider Nurse Practitioner
DX: K51.90 Ulcerative colitis, unspecified, without complications (principal)
CPT/HCPCS: 85025; 96365; J3380; J7050

== ENCOUNTER → 2022-04-14 10:03 | Day surgery (SDC) | payer OTHER, SELFPAY ==
[2022-04-14 10:15] VITALS: BP 119/80; PULSE 110; RESP 18; TEMP 36.6; O2SAT 98
[2022-04-14 10:29] LABS: Basophils % 0.4 %; Eosinophils # 0.1 10^3/uL (0.0-0.8); Eosinophils % 0.5 %; Hematocrit 48.2 % (42.0-52.0); Hemoglobin 15.1 g/dL (11.7-16.6); Lymphocytes # 2.2 10^3/uL (0.8-4.8); Mean Corpuscular HGB Conc 31.3 g/dL (30.0-36.0); Mean Platelet Volume 10.5 fL (7.4-10.4); Monocytes # 0.4 10^3/uL (0.2-0.9); Monocytes % 3.9 %; Neutrophils # 7.78 10^3/uL (1.8-7.7); Neutrophils % 73.9 %; Nucleated Red Blood Cells % 0 %; Platelet Count 360 10^3/cmm (130-400); Red Blood Count 4.87 10^6/uL (4.1-5.3); White Blood Count 10.5 10^3/uL (4.0-10.0)
[2022-04-14] MEDS: vedolizumab 300 MG in sodium chloride 0.9% 250 ML 350 MG IV (10:37)
[2022-04-14 11:09] LABS: Alanine Aminotransferase 58 U/L (0-41); Albumin Level 4.6 g/dL (3.5-5.2); Alkaline Phosphatase 90 U/L (40-130); Anion Gap 15.2 (5-19); Aspartate Amino Transferase 45 U/L (0-40); Blood Urea Nitrogen 18 mg/dL (6-20); Calcium 9.8 mg/dL (8.5-10.5); Carbon Dioxide 33 mmol/L (22-29); Chloride 97 mmol/L (98-107); Globulin 3.1 g/dL (1.3-4.6); Glomerular Filtration Rate 175.3 mL/min (90-130); Glucose 148 mg/dL (65-115); Osmolality Calculated 297 mOsm/kg (285-295); Potassium 4.2 mmol/L (3.5-5.1); Sodium 141 mmol/L (136-145); Total Bilirubin 0.3 mg/dL (0.15-1.2); Total Protein 7.7 g/dL (6.6-8.7)
== END ==
PROVIDERS: PCP Nurse Practitioner; Visit Provider Nurse Practitioner
DX: K51.90 Ulcerative colitis, unspecified, without complications (principal)
CPT/HCPCS: 36415; 80053; 85025; 96365; J3380; J7050

== ENCOUNTER → 2022-06-14 10:00 | Day surgery (SDC) | payer OTHER, SELFPAY ==
[2022-06-14 10:36] LABS: Basophils % 0.4 %; Eosinophils # 0.1 10^3/uL (0.0-0.8); Eosinophils % 0.7 %; Hematocrit 45.5 % (42.0-52.0); Hemoglobin 14.1 g/dL (11.7-16.6); Lymphocytes % 29.4 %; Mean Corpuscular Hemoglobin 30.7 pg (28.0-34.0); Mean Corpuscular Volume 99.1 fl (80-94); Mean Platelet Volume 10.4 fL (7.4-10.4); Monocytes # 0.4 10^3/uL (0.2-0.9); Monocytes % 5.5 %; Neutrophils # 4.32 10^3/uL (1.8-7.7); Neutrophils % 63.9 %; Nucleated Red Blood Cells % 0 %; Platelet Count 354 10^3/cmm (130-400); Red Blood Count 4.59 10^6/uL (4.1-5.3); Red Cell Distribution Width 13.3 % (12.1-15.1); White Blood Count 6.8 10^3/uL (4.0-10.0)
[2022-06-14] MEDS: vedolizumab 300 MG in sodium chloride 0.9% 250 ML 500 MG IV (10:38)
[2022-06-14 10:57] LABS: Alanine Aminotransferase 32 U/L (0-41); Albumin Level 4.5 g/dL (3.5-5.2); Alkaline Phosphatase 68 U/L (40-130); Anion Gap 12.4 (5-19); Aspartate Amino Transferase 29 U/L (0-40); Blood Urea Nitrogen 17 mg/dL (6-20); Calcium 9.8 mg/dL (8.5-10.5); Carbon Dioxide 34 mmol/L (22-29); Chloride 98 mmol/L (98-107); Glomerular Filtration Rate 226.8 mL/min (90-130); Glucose 114 mg/dL (65-115); Osmolality Calculated 292 mOsm/kg (285-295); Potassium 4.4 mmol/L (3.5-5.1); Sodium 140 mmol/L (136-145); Total Bilirubin 0.3 mg/dL (0.15-1.2); Total Protein 7.5 g/dL (6.6-8.7)
[2022-06-14 11:37] VITALS: BP 110/84; PULSE 108; RESP 18; TEMP 36.4; O2SAT 97
== END ==
PROVIDERS: PCP Nurse Practitioner; Visit Provider Nurse Practitioner
DX: K51.90 Ulcerative colitis, unspecified, without complications (principal)
CPT/HCPCS: 80053; 85025; 96365; J3380; J7050

== ENCOUNTER → 2022-07-25 15:25 | Outpatient (BNVA) | payer OTHER, SELFPAY | PROVIDERS: PCP Nurse Practitioner; Visit Provider Thoracic Surgery (Cardiothoracic Vascular Surgery) | DX: L89.612 Pressure ulcer of right heel, stage 2 (principal) | CPT/HCPCS: 97597; A6021; A6210; A6212; A6248 ==

== ENCOUNTER → 2022-08-01 15:59 | Outpatient (BNVA) | payer OTHER, SELFPAY | PROVIDERS: PCP Nurse Practitioner; Visit Provider Thoracic Surgery (Cardiothoracic Vascular Surgery) | DX: L89.612 Pressure ulcer of right heel, stage 2 (principal) | CPT/HCPCS: 97597; A6212 ==

== ENCOUNTER → 2022-08-08 16:36 | Outpatient (BNVA) | payer OTHER, SELFPAY | PROVIDERS: PCP Nurse Practitioner; Visit Provider Thoracic Surgery (Cardiothoracic Vascular Surgery) | DX: L89.612 Pressure ulcer of right heel, stage 2 (principal) | CPT/HCPCS: 97597 ==

== ENCOUNTER → 2022-08-09 10:02 | Day surgery (SDC) | payer OTHER, SELFPAY ==
[2022-08-09 10:20] VITALS: BP 113/83; PULSE 118; RESP 18; TEMP 36.7; O2SAT 100
[2022-08-09] MEDS: vedolizumab 300 MG in sodium chloride 0.9% 250 ML 500 MG IV (10:34)
[2022-08-09 10:38] LABS: Basophils % 0.3 %; Eosinophils % 0.7 %; Hematocrit 44.3 % (42.0-52.0); Hemoglobin 13.8 g/dL (11.7-16.6); Lymphocytes # 1.6 10^3/uL (0.8-4.8); Lymphocytes % 27.1 %; Mean Corpuscular HGB Conc 31.2 g/dL (30.0-36.0); Mean Corpuscular Volume 99.6 fl (80-94); Mean Platelet Volume 10.3 fL (7.4-10.4); Monocytes # 0.3 10^3/uL (0.2-0.9); Monocytes % 5.7 %; Neutrophils # 3.85 10^3/uL (1.8-7.7); Nucleated Red Blood Cells % 0 %; Platelet Count 355 10^3/cmm (130-400); Red Blood Count 4.45 10^6/uL (4.1-5.3); Red Cell Distribution Width 13.3 % (12.1-15.1); White Blood Count 5.8 10^3/uL (4.0-10.0)
[2022-08-09 11:01] LABS: Alanine Aminotransferase 32 U/L (0-41); Albumin Level 4.6 g/dL (3.5-5.2); Alkaline Phosphatase 74 U/L (40-130); Anion Gap 16.4 (5-19); Aspartate Amino Transferase 39 U/L (0-40); Blood Urea Nitrogen 16 mg/dL (6-20); Carbon Dioxide 32 mmol/L (22-29); Chloride 99 mmol/L (98-107); Globulin 2.7 g/dL (1.3-4.6); Glomerular Filtration Rate 226.8 mL/min (90-130); Glucose 118 mg/dL (65-115); Osmolality Calculated 298 mOsm/kg (285-295); Potassium 4.4 mmol/L (3.5-5.1); Sodium 143 mmol/L (136-145); Total Bilirubin 0.3 mg/dL (0.15-1.2); Total Protein 7.3 g/dL (6.6-8.7)
== END ==
PROVIDERS: PCP Nurse Practitioner; Visit Provider Nurse Practitioner
DX: K51.90 Ulcerative colitis, unspecified, without complications (principal)
CPT/HCPCS: 36415; 80053; 85025; 96365; J3380; J7050

== ENCOUNTER → 2022-09-12 16:23 | Outpatient (BNVA) | payer OTHER, SELFPAY | PROVIDERS: PCP Nurse Practitioner; Visit Provider Thoracic Surgery (Cardiothoracic Vascular Surgery) | DX: S90.32XA Contusion of left foot, initial encounter (principal); X58.XXXA Exposure to other specified factors, initial encounter; G12.21 Amyotrophic lateral sclerosis | CPT/HCPCS: 99212; A6212 ==

== ENCOUNTER → 2022-10-04 09:59 | Day surgery (SDC) | payer OTHER, SELFPAY ==
[2022-10-04] MEDS: vedolizumab 300 MG in sodium chloride 0.9% 250 ML 500 MG IV (10:20)
[2022-10-04 10:31] VITALS: BP 115/78; PULSE 104; RESP 18; TEMP 36.4; O2SAT 93
== END ==
PROVIDERS: PCP Nurse Practitioner; Visit Provider Nurse Practitioner
DX: K51.90 Ulcerative colitis, unspecified, without complications (principal)
CPT/HCPCS: 96365; J3380; J7050

== ENCOUNTER → 2022-11-29 10:04 | Day surgery (SDC) | payer OTHER, SELFPAY ==
[2022-11-29] MEDS: vedolizumab 300 MG in sodium chloride 0.9% 250 ML 500 MG IV (10:24)
[2022-11-29 10:26] VITALS: BP 113/89; PULSE 103; RESP 18; TEMP 36.6; O2SAT 96
[2022-11-29 10:28] LABS: Basophils % 0.3 %; Eosinophils % 0.4 %; Hematocrit 43.9 % (42.0-52.0); Hemoglobin 13.7 g/dL (11.7-16.6); Lymphocytes % 26.8 %; Mean Corpuscular HGB Conc 31.2 g/dL (30.0-36.0); Mean Corpuscular Hemoglobin 31.1 pg (28.0-34.0); Mean Corpuscular Volume 99.5 fl (80-94); Mean Platelet Volume 10.5 fL (7.4-10.4); Monocytes # 0.5 10^3/uL (0.2-0.9); Monocytes % 7.2 %; Neutrophils # 4.73 10^3/uL (1.8-7.7); Nucleated Red Blood Cells % 0 %; Platelet Count 371 10^3/cmm (130-400); Red Blood Count 4.41 10^6/uL (4.1-5.3); Red Cell Distribution Width 13.6 % (12.1-15.1); White Blood Count 7.3 10^3/uL (4.0-10.0)
[2022-11-29 10:48] LABS: Alanine Aminotransferase 30 U/L (0-41); Albumin Level 4.5 g/dL (3.5-5.2); Alkaline Phosphatase 78 U/L (40-130); Anion Gap 16.7 (5-19); Aspartate Amino Transferase 30 U/L (0-40); Blood Urea Nitrogen 13 mg/dL (6-20); Calcium 9.7 mg/dL (8.5-10.5); Carbon Dioxide 29 mmol/L (22-29); Chloride 96 mmol/L (98-107); Globulin 3.1 g/dL (1.3-4.6); Glomerular Filtration Rate 225.9 mL/min (90-130); Glucose 123 mg/dL (65-115); Osmolality Calculated 287 mOsm/kg (285-295); Potassium 3.7 mmol/L (3.5-5.1); Sodium 138 mmol/L (136-145); Total Bilirubin 0.3 mg/dL (0.15-1.2); Total Protein 7.6 g/dL (6.6-8.7)
== END ==
PROVIDERS: PCP Nurse Practitioner; Visit Provider Nurse Practitioner
DX: K51.90 Ulcerative colitis, unspecified, without complications (principal); Z79.899 Other long term (current) drug therapy
CPT/HCPCS: 80053; 85025; 96365; J3380; J7050

== ENCOUNTER → 2023-01-24 10:03 | Day surgery (SDC) | payer OTHER, SELFPAY ==
[2023-01-24] MEDS: vedolizumab 300 MG in sodium chloride 0.9% 250 ML 500 MG IV (10:12)
[2023-01-24 10:21] VITALS: BP 114/75; PULSE 100; RESP 18; TEMP 36.3; O2SAT 96
== END ==
PROVIDERS: PCP Nurse Practitioner; Visit Provider Nurse Practitioner
DX: K51.90 Ulcerative colitis, unspecified, without complications (principal); Z79.899 Other long term (current) drug therapy
CPT/HCPCS: 96365; J3380; J7050

== ENCOUNTER 2023-01-30 11:18 | Outpatient (CLI) | payer OTHER, SELFPAY ==
--- NOTE | 2023-01-30 11:27 | US_ITS ---
WS: [id number] Exam: US abdomen limited [id number] Date/Time of Exam: 01/30/2023 12:05 PM Reason For Exam: R LOWER ABDOMEN PAIN The liver, pancreas, and gallbladder were unremarkable. The IVC shows phasic flow. The abdominal aort a is normal in caliber. The common bile duct is not dilated and measures 4.2 mm at greatest diameter. The right kidney appears normal. No solid mass or obstruction. No free fluid or mass in the right ab domen. US/US abdomen limited [id number] IMPRESSION: 1. Unremarkable right abdominal sonogram.
== END 2023-01-30 11:19 | disposition home or self-care (01) ==
PROVIDERS: PCP Nurse Practitioner; Visit Provider Nurse Practitioner
DX: R10.31 Right lower quadrant pain (principal)
CPT/HCPCS: 76705

== ENCOUNTER → 2023-03-21 09:56 | Day surgery (SDC) | payer OTHER, SELFPAY ==
[2023-03-21] MEDS: vedolizumab 300 MG in sodium chloride 0.9% 250 ML 500 MG IV (10:15)
[2023-03-21 10:18] VITALS: BP 118/80; PULSE 106; RESP 18; TEMP 36.2; O2SAT 95
[2023-03-21 10:27] LABS: Basophils % 0.6 %; Eosinophils # 0.1 10^3/uL (0.0-0.8); Eosinophils % 1.1 %; Hematocrit 45.1 % (37-53); Lymphocytes # 1.8 10^3/uL (0.8-4.8); Lymphocytes % 27.8 %; Mean Corpuscular HGB Conc 31.9 g/dL (30-55); Mean Corpuscular Hemoglobin 31.8 pg (27-33); Mean Corpuscular Volume 99.6 fl (82-101); Mean Platelet Volume 10.7 fL (7.4-10.4); Monocytes # 0.4 10^3/uL (0.2-0.9); Monocytes % 6.2 %; Neutrophils # 4.05 10^3/uL (1.8-7.7); Nucleated Red Blood Cells % 0 %; Platelet Count 363 10^3/cmm (157-399); Red Blood Count 4.53 10^6/uL (3.85-5.65); Red Cell Distribution Width 13.5 % (12.1-15.1); White Blood Count 6.33 10^3/uL (3.29-11.43)
[2023-03-21 10:40] LABS: Alanine Aminotransferase 28 U/L (0-41); Albumin Level 4.7 g/dL (3.5-5.2); Alkaline Phosphatase 86 U/L (40-130); Aspartate Amino Transferase 28 U/L (0-40); Blood Urea Nitrogen 16 mg/dL (6-20); Calcium 9.7 mg/dL (8.5-10.5); Carbon Dioxide 30 mmol/L (22-29); Chloride 101 mmol/L (98-107); Glomerular Filtration Rate 314.8 mL/min (90-130); Glucose 108 mg/dL (65-115); Osmolality Calculated 296 mOsm/kg (285-295); Sodium 142 mmol/L (136-145); Total Bilirubin 0.3 mg/dL (0.15-1.2); Total Protein 7.7 g/dL (6.6-8.7)
== END ==
PROVIDERS: PCP Nurse Practitioner; Visit Provider Nurse Practitioner
DX: K51.90 Ulcerative colitis, unspecified, without complications (principal)
CPT/HCPCS: 36415; 80053; 85025; 96365; J3380; J7050

== ENCOUNTER 2023-05-06 14:42 | Emergency (ER) | payer OTHER, SELFPAY ==
[2023-05-06 14:59] VITALS: BP 122/81; PULSE 104; RESP 16; TEMP 36.6; O2SAT 97; BMI 18.7
[2023-05-06 15:52] LABS: Basophils % 0.2 %; Eosinophils % 0.4 %; Hematocrit 43.4 % (37-53); Lymphocytes # 2.6 10^3/uL (0.8-4.8); Lymphocytes % 28.1 %; Mean Corpuscular HGB Conc 31.1 g/dL (30-55); Mean Corpuscular Volume 99.8 fl (82-101); Mean Platelet Volume 10.6 fL (7.4-10.4); Monocytes # 0.6 10^3/uL (0.2-0.9); Monocytes % 6.3 %; Neutrophils # 5.89 10^3/uL (1.8-7.7); Neutrophils % 64.8 %; Nucleated Red Blood Cells % 0 %; Platelet Count 372 10^3/cmm (157-399); Red Blood Count 4.35 10^6/uL (3.85-5.65); Red Cell Distribution Width 13.3 % (12.1-15.1)
[2023-05-06 16:13] LABS: Alanine Aminotransferase 22 U/L (0-41); Albumin Level 4.3 g/dL (3.5-5.2); Alkaline Phosphatase 110 U/L (40-130); Anion Gap 16.3 (5-19); Aspartate Amino Transferase 25 U/L (0-40); Blood Urea Nitrogen 17 mg/dL (6-20); Calcium 9.6 mg/dL (8.5-10.5); Carbon Dioxide 26 mmol/L (22-29); Chloride 104 mmol/L (98-107); Glomerular Filtration Rate 225.9 mL/min (90-130); Glucose 87 mg/dL (65-115); Osmolality Calculated 295 mOsm/kg (285-295); Potassium 4.3 mmol/L (3.5-5.1); Sodium 142 mmol/L (136-145); Total Bilirubin 0.2 mg/dL (0.15-1.2); Total Protein 7.3 g/dL (6.6-8.7)
--- NOTE | 2023-05-06 19:53 | CTR_ITS ---
PROCEDURE INFORMATION: Exam: CT Abdomen And Pelvis With Contrast Exam date and time: 05/06/2023 8:17 PM Age: 52 years old Clinical indication: Prior surgery; Surgery date: 6+ months; Surgery type: Peg tube; Patient HX: Persistent diarrhea x 4 weeks. Unable to bring arms above head due to als. ; Additional info: Diarrhea, HX of uc TECHNIQUE: Imaging protocol: Computed tomography of the abdomen and pelvis with contrast. Radiation optimization: All CT scans at this facility use at least one of these dose optimization techniques: automated exposure control; mA and/or kV adjustment per patient size (includes targeted exams where dose is matched to clinical indication); or iterative reconstruction. Contrast material: OMNI 350; Contrast volume: 75 ml; Contrast route: INTRAVENOUS (IV); REPORTING DATA: Count of CT and Cardiac NM exams in prior 12 months: This patient has received 0 known CTs and 0 known cardiac nuclear medicine studies in the 12 months prior to the current study. COMPARISON: US abdomen limited [id number] 01/30/2023 12:17 PM RADIATION DOSE METRICS: Total DLP (mGy-cm): 1402.11 FINDINGS: Tubes, catheters and devices: Percutaneous gastric tube tip in the stomach. Liver: Hepatic steatosis. Gallbladder and bile ducts: Normal. No calcified stones. No ductal dilation. Pancreas: Normal. No ductal dilation. Spleen: Normal. No splenomegaly. Adrenal glands: Normal. No mass. Kidneys and ureters: Normal. No hydronephrosis. Stomach and bowel: Mid to distal sigmoid colon wall thickening may reflect a colitis. Ybje-wa-icvyjzaj constipation. Appendix: No evidence of appendicitis. Intraperitoneal space: Unremarkable. No free air. No significant fluid collection. Vasculature: Unremarkable. No abdominal aortic aneurysm. Lymph nodes: Unremarkable. No enlarged lymph nodes. Urinary bladder: Unremarkable as visualized. Reproductive: Unremarkable as visualized. Bones/joints: Right subcapital mildly impacted hip fracture suspected. Soft tissues: Unremarkable. CT/CT abdomen pelvis w con* [id number] IMPRESSION: 1. Mid to distal sigmoid colon wall thickening may reflect a colitis. 2. Hepatic steatosis. 3. Percutaneous gastric tube tip in the stomach. 4. [id number] constipation. 5. Right subcapital mildly impacted hip fracture suspected.
[2023-05-06] MEDS: iohexol 350 mg/mL 500 mL Btl (per mL) IV (20:19)
[2023-05-06 20:26] LABS: Erythrocyte Sedimentation Rate 36 mm/hr (0-10)
[2023-05-06 20:30] LABS: C Reactive Protein 12.8 mg/L (0.0-4.9)
--- NOTE | 2023-05-06 20:56 | W.ED.GENADLT ---
HPI - General Adult General: Chief complaint: General Medical Stated complaint: Diarrhea 4 weeks Time Seen by Provider: 05/06/23 14:49 History of Present Illness: 52-year-old male with history of ALS. He has a history of constipation as well. A long history of ulcerative colitis, although he has been controlled with his ulcerative colitis symptoms since being on Entyvio. Several days ago, he felt constipated. His gave him some magnesium citrate, which relieved the constipation. However, he has had diarrhea essentially since that time. He briefly had some left lower quadrant pain, which now seems resolved. Diarrhea has been brisk, but nonbloody. Imodium seems to help to some degree. This is only been given the last couple of days. Associated symptoms: Deny chest pain, dyspnea, headache(s), nausea, rash or vomiting Review of Systems Const: Denies: fever(s) or chills ENMT: Denies: throat pain Card: Denies: chest pain Resp: Denies: dyspnea GI: Reports: abdominal pain (Briefly), diarrhea and change in bowel habits; Denies: nausea, vomiting or hematochezia : Denies: flank pain Skin/Breast: Denies: rash Neuro: Denies: headache(s) PFSH ED PFSH: Medical History ALS (amyotrophic lateral sclerosis) Ulcerative (chronic) enterocolitis Surgical History History of esophageal surgery History of oral surgery Family History Denies family history of Diabetes Hypertension Social History Smoking and tobacco/nicotine status: never used tobacco/nicotine Alcohol intake: current Alcohol intake frequency: holidays/special occasions only Substance/Drug Use: never Physical Exam Const: COMMON NORMALS: no acute distress GENERAL APPEARANCE: cooperative and frail appearing (Mildly) HENMT: COMMON NORMALS: normocephalic, atraumatic and Normal external nose present HEAD & SCALP: normocephalic and atraumatic FACE & SINUS: normal facial exam and face symmetric NOSE: Normal external nose present Eye: COMMON NORMALS: Equal, round and reactive pupils present and EOMs intact bilaterally PUPIL: Yes Equal, round and reactive pupils present Neck/C-Spine: GENERAL: Yes trachea midline Chest: CHEST: Yes Symmetrical chest wall rise Resp: COMMON NORMALS: normal respiratory effort, No retractions, No use of accessory muscles and clear to auscultation bilaterally AUSCULTATION: clear to auscultation bilaterally Cardio: COMMON NORMALS: regular rate and regular rhythm RATE: regular rate RHYTHM: regular rhythm GI: COMMON NORMALS: Normal to inspection, nondistended, normoactive bowel sounds present PALPATION: No Tenderness to palpation present (GI) and No Guarding due to palpation present (GI) Extremity: COMMON NORMALS: no pedal edema Neuro: GOSIA COMA SCALE: document GCS findings Gosia coma scale eye opening: Spontaneous [place] coma scale verbal response: Orientated [place] coma scale motor response: Obey commands [place] coma scale total score: 15 Psych: COMMON NORMALS: mental status grossly normal Skin: COMMON NORMALS: no rashes or lesions noted GENERAL SKIN EXAM: no rashes or lesions noted Course Vital Signs: Vital signs: Vital Signs Temperature 97.8 F 05/06/23 14:59 Pulse Rate 104 H 05/06/23 14:59 Respiratory Rate 16 05/06/23 14:59 Blood Pressure 122/81 05/06/23 14:59 Pulse Oximetry 97 05/06/23 14:59 [facility] - General Adult Medical Decision Making The patient's vitals been stable here. He is not in pain. CBC is normal. Sed rate is 36, CRP is 13. Minimal elevations in both. He has mid to distal sigmoid colon wall thickening which may reflect colitis. No diarrhea. He will take ciprofloxacin and Flagyl for diagnosis of colitis. Given his history of ulcerative colitis, he will be placed on a short course of steroid. Interestingly, a right subcapital mildly impacted hip fracture is noted. The patient had fallen with significant right hip pain about 4 weeks ago now. His pain is much improved. He is nonambulatory. Given the fracture is a subacute fracture at this point, and that the patient is not ambulatory, we will let him follow-up as an outpatient with orthopedics for this. Doubtful surgical intervention will be necessary at this point, especially given the patient's comorbidities. He knows to return for worsening symptoms despite treatment. He was told to use the Imodium no more than once a day, to prevent further constipation. Outpatient follow-up. Lab Data 05/06/23 15:45 05/06/23 15:45 Radiology Impressions Abdomen/Pelvis CT 05/06/23 19:53 IMPRESSION: 1. Mid to distal sigmoid colon wall thickening may reflect a colitis. 2. Hepatic steatosis. 3. Percutaneous gastric tube tip in the stomach. 4. [id number] constipation. 5. Right subcapital mildly impacted hip fracture suspected. Laboratory Results WBC 9.10 10^3/uL (3.29-11.43) 05/06/23 15:45 RBC 4.35 10^6/uL (3.85-5.65) 05/06/23 15:45 Hgb 13.50 g/dL (11.27-16.99) 05/06/23 15:45 Hct 43.4 % (37-53) 05/06/23 15:45 MCV 99.8 fl (82-101) 05/06/23 15:45 MCH 31.0 pg (27-33) 05/06/23 15:45 MCHC 31.1 g/dL (30-55) 05/06/23 15:45 RDW 13.3 % (12.1-15.1) 05/06/23 15:45 Plt Count 372 10^3/cmm (157-399) 05/06/23 15:45 MPV 10.6 fL (7.4-10.4) H 05/06/23 15:45 Neut % (Auto) 64.8 % 05/06/23 15:45 Lymph % (Auto) 28.1 % 05/06/23 15:45 [place] % (Auto) 6.3 % 05/06/23 15:45 Eos % (Auto) 0.4 % 05/06/23 15:45 Baso % (Auto) 0.2 % 05/06/23 15:45 Neut # (Auto) 5.89 10^3/uL (1.8-7.7) 05/06/23 15:45 Lymph # (Auto) 2.6 10^3/uL (0.8-4.8) 05/06/23 15:45 [place] # (Auto) 0.6 10^3/uL (0.2-0.9) 05/06/23 15:45 Eos # (Auto) 0.0 10^3/uL (0.0-0.8) 05/06/23 15:45 Baso # (Auto) 0.0 10^3/uL (0.0-0.1) 05/06/23 15:45 Nucleated RBC % (auto) 0 % 05/06/23 15:45 Nucleated RBCs # 0.0 /100WBC 05/06/23 15:45 ESR 36 mm/hr (0-10) H 05/06/23 15:45 Sodium 142 mmol/L (136-145) 05/06/23 15:45 Potassium 4.3 mmol/L (3.5-5.1) 05/06/23 15:45 Chloride 104 mmol/L (98-107) 05/06/23 15:45 Carbon Dioxide 26 mmol/L (22-29) 05/06/23 15:45 Anion Gap 16.3 (5-19) 05/06/23 15:45 BUN 17 mg/dL (6-20) 05/06/23 15:45 Creatinine 0.4 mg/dL (0.7-1.2) L 05/06/23 15:45 GFR Calculation 225.9 mL/min (90-130) H 05/06/23 15:45 Glucose 87 mg/dL (65-115) 05/06/23 15:45 Calculated Osmolality 295 mOsm/kg (285-295) 05/06/23 15:45 Calcium 9.6 mg/dL (8.5-10.5) 05/06/23 15:45 Total Bilirubin 0.2 mg/dL (0.15-1.2) 05/06/23 15:45 AST 25 U/L (0-40) 05/06/23 15:45 ALT 22 U/L (0-41) 05/06/23 15:45 Alkaline Phosphatase 110 U/L (40-130) 05/06/23 15:45 C-Reactive Protein 12.8 mg/L (0.0-4.9) H 05/06/23 15:45 Total Protein 7.3 g/dL (6.6-8.7) 05/06/23 15:45 Albumin 4.3 g/dL (3.5-5.2) 05/06/23 15:45 Globulin 3.0 g/dL (1.3-4.6) 05/06/23 15:45 All radiology interpretation(s) finalized by discharge Discharge Plan Discharge Patient Disposition: Home Clinical Impression: Colitis Closed subcapital fracture of neck of femur Qualifiers: Encounter type: initial encounter Laterality: right Qualified Code(s): S72.011A - Unspecified intracapsular fracture of right femur, initial encounter for closed fracture Condition: Stable Prescriptions: New ciprofloxacin 500 mg/5 mL suspension,microcapsule recon 500 mg PO BID Qty: 40 0RF metronidazole 500 mg tablet 500 mg PO Q8H 7 Days Qty: 21 0RF prednisolone sodium phosphate 15 mg/5 mL (3 mg/mL) solution 30 mg PO DAILY Qty: 50 0RF No Action mupirocin 2 % ointment 1 applic topical BID Qty: 22 1RF Rx Instructions: Apply to ear BID until healed riluzole 50 mg Tablet 50 mg PO Q12H omeprazole-sodium bicarbonate 20-1,680 mg Packet 1 packet PO DAILY Entyvio 300 mg Recon Soln 300 mg IV DIRECTED Rx Instructions: every 8 weeks nortriptyline 10 mg Capsule 10 mg PO DAILY gabapentin 600 mg Tablet 600 mg PO BEDTIME Discharge Orders: Discharge ED (Routine); Ordered 05/06/23 Ordered By: Mendel Ennis Referrals: Chel Weinstein FNP [Primary Care Provider] - 1-3 days Tyler Ramsey DO [Physician] - 4-7 days Patient Instructions: Hip Fracture (ED), Colitis (ED), Opioid Safety, Pain Management Activity Restrictions/Additional Instructions: Call orthopedics on Monday for a follow-up appointment regarding your hip. Antibiotics as directed. You will have to crush the metronidazole and put it in liquid. Return for any worsening symptoms. Stick to 1 dose of Imodium a day if possible. See your doctor this week. Coding Level of Care Code ED Intelligence Operations Specialist for Clary Yo
[2023-05-06] MEDS: pred sod phos 15 mg/5 mL Soln 30mL Btl 30 MG PO (22:06)
[2023-05-06] MEDS: metroNIDAZOLE 500 MG Tablet PO (22:06)
== END 2023-05-06 22:13 | disposition home or self-care (01) ==
PROVIDERS: Nurse Practitioner; Emergency Provider Emergency Medicine; PCP Nurse Practitioner
DX: K52.9 Noninfective gastroenteritis and colitis, unspecified (principal); S72.011A Unspecified intracapsular fracture of right femur, initial encounter for closed fracture; G12.21 Amyotrophic lateral sclerosis; W19.XXXA Unspecified fall, initial encounter
CPT/HCPCS: 36415; 74177; 80053; 85025; 85651; 86140; 99285; J7510; Q9967

== ENCOUNTER → 2023-05-16 10:03 | Day surgery (SDC) | payer OTHER, SELFPAY ==
[2023-05-16] MEDS: vedolizumab 300 MG in sodium chloride 0.9% 250 ML 500 MG IV (10:21)
[2023-05-16 10:29] VITALS: BP 112/81; PULSE 105; RESP 18; TEMP 36.1; O2SAT 95
== END ==
PROVIDERS: PCP Nurse Practitioner; Visit Provider Nurse Practitioner
DX: K51.90 Ulcerative colitis, unspecified, without complications (principal); S72.001A Fracture of unspecified part of neck of right femur, initial encounter for closed fracture; X58.XXXA Exposure to other specified factors, initial encounter
CPT/HCPCS: 27230; 73502; 96365; 99204; J3380; J7050

== ENCOUNTER 2023-05-20 20:51 | Inpatient (IN) | payer OTHER, SELFPAY ==
[2023-05-20] VITALS (16 sets, daily range): BP systolic 92–124; BP diastolic 68–83; PULSE 119–142; RESP 20–34; TEMP 37.5; O2SAT 54–99; BMI 18.8
--- NOTE | 2023-05-20 21:11 | PC.NURSE ---
pt currently wearing trilogy JOHN mask, room air, oxygen sat 95%
--- NOTE | 2023-05-20 21:32 | CTR_ITS ---
PROCEDURE INFORMATION: Exam: CTA Chest With Contrast Exam date and time: 05/20/2023 9:55 PM Age: 52 years old Clinical indication: Shortness of breath; Prior surgery; Surgery date: 6+ months; Surgery type: Peg tube; Patient HX: SOB with hypoxia and tachycardia. Diarrhea. History of ulcerative colitis. Patient has als. ; Additional info: Tachycardia, SOB, diarrhea TECHNIQUE: Imaging protocol: Computed tomographic angiography of the chest with contrast. Exam focused on the arteries. 3D rendering (Not supervised by radiologist): MIP and/or 3D reconstructed images were created by the technologist. Radiation optimization: All CT scans at this facility use at least one of these dose optimization techniques: automated exposure control; mA and/or kV adjustment per patient size (includes targeted exams where dose is matched to clinical indication); or iterative reconstruction. Contrast material: OMNI 350; Contrast volume: 95 ml; Contrast route: INTRAVENOUS (IV); REPORTING DATA: Count of CT and Cardiac NM exams in prior 12 months: This patient has received [address] and 0 known cardiac nuclear medicine studies in the 12 months prior to the current study. COMPARISON: CR XR chest 1V portable [id number] 01/21/2022 1:39 PM RADIATION DOSE METRICS: Total DLP (mGy-cm): 1944.85 FINDINGS: Pulmonary arteries: Normal. No pulmonary emboli. Aorta: Unremarkable. No aortic aneurysm. No aortic dissection. Lungs: Unremarkable. No consolidation. No masses. Pleural spaces: Unremarkable. No pneumothorax. No pleural effusion. Heart: Unremarkable. No cardiomegaly. No pericardial effusion. Lymph nodes: Unremarkable. No enlarged lymph nodes. Bones/joints: Unremarkable. No acute fracture. Soft tissues: Unremarkable. PROCEDURE INFORMATION: Exam: CT Abdomen And Pelvis With Contrast Exam date and time: 05/20/2023 9:55 PM Age: 52 years old Clinical indication: Shortness of breath; Prior surgery; Surgery date: 6+ months; Surgery type: Peg tube; Patient HX: SOB with hypoxia and tachycardia. Diarrhea. History of ulcerative colitis. Patient has als. ; Additional info: Tachycardia, SOB, diarrhea TECHNIQUE: Imaging protocol: Computed tomography of the abdomen and pelvis with contrast. Radiation optimization: All CT scans at this facility use at least one of these dose optimization techniques: automated exposure control; mA and/or kV adjustment per patient size (includes targeted exams where dose is matched to clinical indication); or iterative reconstruction. Contrast material: OMNI 350; Contrast volume: 95 ml; Contrast route: INTRAVENOUS (IV); REPORTING DATA: Count of CT and Cardiac NM exams in prior 12 months: This patient has received [address] and 0 known cardiac nuclear medicine studies in the 12 months prior to the current study. COMPARISON: CT abdomen pelvis w con* [id number] 05/06/2023 8:17 PM RADIATION DOSE METRICS: Total DLP (mGy-cm): 1944.85 FINDINGS: Tubes, catheters and devices: Gastrostomy catheter well positioned within mid gastric body. Liver: Normal. No mass. Gallbladder and bile ducts: Normal. No calcified stones. No ductal dilation. Pancreas: Normal. No ductal dilation. Spleen: Normal. No splenomegaly. Adrenal glands: Normal. No mass. Kidneys and ureters: Normal. No hydronephrosis. Stomach and bowel: There is smooth mild diffuse colonic wall thickening. Loss of the normal haustral. Negative for pericolonic stranding. Mild right colonic distension with air-fluid levels. Negative for bowel obstruction or perforation. No focal mass. Negative for pneumatosis. Appendix: No evidence of appendicitis. Intraperitoneal space: Unremarkable. No free air. No significant fluid collection. Vasculature: Unremarkable. No abdominal aortic aneurysm. Lymph nodes: Unremarkable. No enlarged lymph nodes. Urinary bladder: Unremarkable as visualized. Reproductive: Unremarkable as visualized. Bones/joints: Unremarkable. No acute fracture. Soft tissues: Unremarkable. CT/CT angio chest w abd pel w con IMPRESSION: No acute findings. IMPRESSION: 1. No distinct focal acute inflammatory changes in the abdomen or pelvis are identified. 2. There is generally mild severity diffuse colonic wall thickening changes as well as mildly prominent mucosal enhancement features. This most likely represents sequela of the known chronic inflammatory bowel disease. Acute flare cannot be excluded.
[2023-05-20] MEDS: sodium chloride 0.9% 1,000 ML 999 ML IV ×2 (21:49→22:56)
--- NOTE | 2023-05-20 21:52 | ED_ITS ---
HPI - General Adult General: Stated complaint: low O2, als, diarrhea Time Seen by Provider: 05/20/23 21:15 History of Present Illness: 52-year-old male with a history of ALS. Said a history of ongoing diarrhea for 4 to 5 weeks now. He was treated with antibiotics and steroids which seem to incompletely improve his symptoms for a week or so. Diarrhea was back and was worse yesterday, and worse today. Today, the patient has been more weak. He has been less able to talk. Oxygen saturations dropped quickly with any exertion whatsoever including talking. He has been febrile as well, as high as 101.6. This improves with Tylenol. He is not having any significant pain. No blood in the stool. No vomiting. He is currently wearing his trilogy machine with improvement in his oxygenation and shortness of breath. Associated symptoms: Reports dyspnea; Deny chest pain, nausea, palpitations or vomiting Review of Systems Const: Reports: fever(s) and body aches ENMT: Denies: throat pain Card: Denies: chest pain or palpitations Resp: Reports: dyspnea; Denies: productive cough or non-productive cough GI: Reports: diarrhea; Denies: abdominal pain, nausea, vomiting, hematochezia or melena PFSH ED PFSH: Medical History ALS (amyotrophic lateral sclerosis) Ulcerative (chronic) enterocolitis Surgical History History of esophageal surgery History of oral surgery Family History Denies family history of Diabetes Hypertension Social History Smoking and tobacco/nicotine status: never used tobacco/nicotine Alcohol intake: never Substance/Drug Use: never Physical Exam Const: GENERAL APPEARANCE: cooperative and frail appearing NUTRITIONAL APPEARANCE: thin HENMT: COMMON NORMALS: normocephalic, hearing grossly normal bilaterally and Normal external nose present HEAD & SCALP: normocephalic FACE & SINUS: normal facial exam and face symmetric NOSE: Normal external nose present Eye: COMMON NORMALS: Equal, round and reactive pupils present and EOMs intact bilaterally PUPIL: Yes Equal, round and reactive pupils present Chest: CHEST: Yes Symmetrical chest wall rise Resp: EFFORT & INSPECTION: Yes symmetric chest movement Cardio: COMMON NORMALS: regular rhythm RATE: tachycardic RHYTHM: regular rhythm GI: COMMON NORMALS: Soft to palpation and non-tender PALPATION: Yes Soft to palpation Extremity: GENERAL: Yes edema (1+) Neuro: GOSIA COMA SCALE: document GCS findings Gosia coma scale eye opening: Spontaneous [place] coma scale verbal response: Orientated Gosia coma scale motor response: Obey commands [place] coma scale total score: 15 Course Vital Signs: Vital signs: Vital Signs Temperature 99.5 F 05/20/23 20:55 Pulse Rate 129 H 05/20/23 23:10 Respiratory Rate 22 H 05/20/23 23:10 Blood Pressure 124/83 05/20/23 23:10 Pulse Oximetry 86 L 05/20/23 23:10 Oxygen Delivery Me thod Room Air 05/20/23 21:46 MDM - General Adult Medical Decision Making 52-year-old male with ALS symptoms, fever, diarrhea, and generalized weakness with some shortness of breath. Shortness of breath is improved on his trilogy machine, and he is breathing room air. Saturations have been good. Blood pressure was initially low, with increased heart rate, but both are improved after 2 L bolus which is essentially a 30 mL/kg bolus. Heart rate is 120, blood pressure is 100 systolic, map is 81. White blood cell count is 35. CRP is significantly elevated at 188. Potassium is 4. CTs were ordered. CTA of the chest is negative. CT of the abdomen and pelvis shows mild severity diffuse colonic wall thickening which could be chronic inflammatory bowel disease versus infection. Given his fever, leukocytosis, and other symptoms, he will be covered for infection. Admission to ICU. His viral panel is negative. He will be covered with vancomycin and Zosyn for broad-spectrum coverage. Vancomycin through the PEG tube for C. difficile coverage as well as IV Flagyl for C. difficile coverage. Spoke with hospitalist on-call. She will see the patient in the ER. Lab Data 05/20/23 21:42 05/20/23 21:42 Radiology Impressions Chest/Abdomen/Pelvis CT 05/20/23 21:32 IMPRESSION: No acute findings. IMPRESSION: 1. No distinct focal acute inflammatory changes in the abdomen or pelvis are identified. 2. There is generally mild severity diffuse colonic wall thickening changes as well as mildly prominent mucosal enhancement features. This most likely represents sequela of the known chronic inflammatory bowel disease. Acute flare cannot be excluded. Laboratory Results WBC 34.69 10^3/uL (3.29-11.43) H* 05/20/23 21:42 RBC 4.67 10^6/uL (3.85-5.65) 05/20/23 21:42 Hgb 14.70 g/dL (11.27-16.99) 05/20/23 21:42 Hct 46.6 % (37-53) 05/20/23 21: MCV 99.8 fl (82-101) 05/20/23 21: MCH 31.5 pg (27-33) 05/20/23 21: MCHC 31.5 g/dL (30-55) 05/20/23 21:42 RDW 14.3 % (12.1-15.1) 05/20/23 21:42 Plt Count 356 10^3/cmm (157-399) 05/20/23 21:42 MPV 10.9 fL (7.4-10.4) H 05/20/23 21:42 Neut % (Auto) 94.1 % 05/20/23 21:42 Lymph % (Auto) 0.9 % 05/20/23 21:42 [place] % (Auto) 3.8 % 05/20/23 21:42 Eos % (Auto) 0.0 % 05/20/23 21:42 Baso % (Auto) 0.2 % 05/20/23 21:42 Neut # (Auto) 32.66 10^3/uL (1.8-7.7) H 05/20/23 21:42 Lymph # (Auto) 0.3 10^3/uL (0.8-4.8) L 05/20/23 21:42 [place] # (Auto) 1.3 10^3/uL (0.2-0.9) H 05/20/23 21:42 Eos # (Auto) 0.0 10^3/uL (0.0-0.8) 05/20/23 21:42 Baso # (Auto) 0.1 10^3/uL (0.0-0.1) 05/20/23 21:42 Nucleated RBC % (auto) 0 % 05/20/23 21:42 Nucleated RBCs # 0.0 /100WBC 05/20/23 21:42 ESR 4 mm/hr (0-10) 05/20/23 21:42 D-Dimer 0.69 ug/mLFEU (0-0.59) H 05/20/23 21:42 Sodium 140 mmol/L (136-145) 05/20/23 21:42 Potassium 4.0 mmol/L (3.5-5.1) 05/20/23 21:42 Chloride 100 mmol/L (98-107) 05/20/23 21:42 Carbon Dioxide 26 mmol/L (22-29) 05/20/23 21:42 Anion Gap 18.0 (5-19) 05/20/23 21:42 BUN 15 mg/dL (6-20) 05/20/23 21:42 Creatinine 0.5 mg/dL (0.7-1.2) L 05/20/23 21:42 GFR Calculation 174.6 mL/min (90-130) H 05/20/23 21:42 Glucose 163 mg/dL (65-115) H 05/20/23 21:42 Calculated Osmolality 294 mOsm/kg (285-295) 05/20/23 21:42 Lactic Acid 4.7 mmol/L (0.5-2.2) H* 05/20/23 21:42 Calcium 9.1 mg/dL (8.5-10.5) 05/20/23 21:42 Phosphorus 3.2 mg/dL (2.5-4.5) 05/20/23 21:42 Magnesium 1.8 mg/dL (1.7-2.3) 05/20/23 21:42 Total Bilirubin 0.4 mg/dL (0.15-1.2) 05/20/23 21:42 AST 21 U/L (0-40) 05/20/23 21:42 ALT 31 U/L (0-41) 05/20/23 21:42 Alkaline Phosphatase 79 U/L (40-130) 05/20/23 21:42 C-Reactive Protein 187.8 mg/L (0.0-4.9) H 05/20/23 21:42 Total Protein 7.1 g/dL (6.6-8.7) 05/20/23 21:42 Albumin 4.0 g/dL (3.5-5.2) 05/20/23 21:42 Globulin 3.1 g/dL (1.3-4.6) 05/20/23 21:42 Lipase 12 U/L (13-60) L 05/20/23 21:42 Procalcitonin 1.83 ng/mL (0-0.5) H 05/20/23 21:42 Nasal Influ A H1 2009 PCR Not detected (NOT DETECT) 05/20/23 21:44 Adenovirus (PCR) Not detected (NOT DETECT) 05/20/23 21:44 C. pneumoniae DNA (PCR) Not detected (NOT DETECT) 05/20/23 21:44 Coronavirus 229E (PCR) Not detected (NOT DETECT) 05/20/23 21:44 Human Metapneumovir PCR Not detected (NOT DETECT) 05/20/23 21:44 Influenza A (H1) PCR Not detected (NOT DETECT) 05/20/23 21:44 Influenza A (H3) PCR Not detected (NOT DETECT) 05/20/23 21:44 Influenza Type A (PCR) Not detected (NOT DETECT) 05/20/23 21:44 Influenza Type B (PCR) Not detected (NOT DETECT) 05/20/23 21:44 M. pneumoniae (PCR) Not detected (NOT DETECT) 05/20/23 21:44 Parainfluenza 1 (PCR) Not detected (NOT DETECT) 05/20/23 21:44 Parainfluenza 2 (PCR) Not detected (NOT DETECT) 05/20/23 21:44 Parainfluenza 3 (PCR) Not detected (NOT DETECT) 05/20/23 21:44 Parainfluenza 4 (PCR) Not detected (NOT DETECT) 05/20/23 21:44 RSV Type A (PCR) Not detected (NOT DETECT) 05/20/23 21:44 RSV Type B (PCR) Not detected (NOT DETECT) 05/20/23 21:44 Entero/Rhino (PCR) Not detected (NOT DETECT) 05/20/23 21:44 SARS-CoV-2 (PCR) Not detected (NOT DETECT) 05/20/23 21:44 All radiology interpretation(s) finalized by discharge Critical Care Time Critical Care Time: Critical Care Time: Yes Total Critical Care Time: 35 Attestation: This case had a high probability of a clinically significant, sudden, or life threatening deterioration of this patient's condition which required my full and direct attention, intervention and personal management. Time is independent of any procedures performed. Discharge Plan Discharge Patient Disposition: Admitted As Inpatient Admit Provider: Jossy Keene Clinical Impression: Sepsis, Colitis Condition: Stable Coding Level of Care Code ED Business Insurance Agent for Clary Yo
[2023-05-20 21:53] LABS: Erythrocyte Sedimentation Rate 4 mm/hr (0-10)
[2023-05-20 21:54] LABS: Basophils # 0.1 10^3/uL (0.0-0.1); Basophils % 0.2 %; Hematocrit 46.6 % (37-53); Lymphocytes # 0.3 10^3/uL (0.8-4.8); Lymphocytes % 0.9 %; Mean Corpuscular HGB Conc 31.5 g/dL (30-55); Mean Corpuscular Hemoglobin 31.5 pg (27-33); Mean Corpuscular Volume 99.8 fl (82-101); Mean Platelet Volume 10.9 fL (7.4-10.4); Monocytes # 1.3 10^3/uL (0.2-0.9); Monocytes % 3.8 %; Neutrophils # 32.66 10^3/uL (1.8-7.7); Neutrophils % 94.1 %; Nucleated Red Blood Cells % 0 %; Platelet Count 356 10^3/cmm (157-399); Red Blood Count 4.67 10^6/uL (3.85-5.65); Red Cell Distribution Width 14.3 % (12.1-15.1)
[2023-05-20 21:56] LABS: White Blood Count 34.69 10^3/uL (3.29-11.43)
[2023-05-20] MEDS: iohexol 350 mg/mL 500 mL Btl (per mL) IV (22:00)
[2023-05-20 22:05] LABS: D Dimer 0.69 ug/mLFEU (0-0.59)
[2023-05-20 22:11] LABS: Alanine Aminotransferase 31 U/L (0-41); Alkaline Phosphatase 79 U/L (40-130); Aspartate Amino Transferase 21 U/L (0-40); Blood Urea Nitrogen 15 mg/dL (6-20); C Reactive Protein 187.8 mg/L (0.0-4.9); Calcium 9.1 mg/dL (8.5-10.5); Carbon Dioxide 26 mmol/L (22-29); Chloride 100 mmol/L (98-107); Globulin 3.1 g/dL (1.3-4.6); Glomerular Filtration Rate 174.6 mL/min (90-130); Glucose 163 mg/dL (65-115); Lipase 12 U/L (13-60); Magnesium 1.8 mg/dL (1.7-2.3); Osmolality Calculated 294 mOsm/kg (285-295); Phosphorus 3.2 mg/dL (2.5-4.5); Sodium 140 mmol/L (136-145); Total Bilirubin 0.4 mg/dL (0.15-1.2); Total Protein 7.1 g/dL (6.6-8.7)
[2023-05-20 22:13] LABS: Lactic Sepsis W/Reflex 4.7 mmol/L (0.5-2.2)
[2023-05-20 22:18] LABS: Procalcitonin 1.83 ng/mL (0-0.5)
[2023-05-20] MEDS: piperacillin-tazobactam 3.375 GM in sodium chloride 0.9% (plus) 50 ML IV (22:55)
[2023-05-20 23:38] LABS: Reflex Lactate Order REFLEX LACTIC ORDERD
[2023-05-20 23:42] LABS: Adenovirus Not Detected (NOT DETECT); Chlamydia Pneumoniae Not Detected (NOT DETECT); Coronavirus 229E,HKU1,NL63,OC4 Not Detected (NOT DETECT); Human Metapneumovirus Not Detected (NOT DETECT); Human Rhinovirus/Enterovirus Not Detected (NOT DETECT); Influenza A Not Detected (NOT DETECT); Influenza A H1 Not Detected (NOT DETECT); Influenza A H1-2009 Not Detected (NOT DETECT); Influenza A H3 Not Detected (NOT DETECT); Influenza B Not Detected (NOT DETECT); Mycoplasma Pneumoniae Not Detected (NOT DETECT); Parainfluenza Virus Type 1 Not Detected (NOT DETECT); Parainfluenza Virus Type 2 Not Detected (NOT DETECT); Parainfluenza Virus Type 3 Not Detected (NOT DETECT); Parainfluenza Virus Type 4 Not Detected (NOT DETECT); Respiratory Syncytial Virus A Not Detected (NOT DETECT); Respiratory Syncytial Virus B Not Detected (NOT DETECT); SARS-COV-2 Not Detected (NOT DETECT)
[2023-05-21] VITALS (56 sets, daily range): BP systolic 87–134; BP diastolic 57–106; PULSE 109–140; RESP 12–35; TEMP 37; O2SAT 84–100
--- NOTE | 2023-05-21 00:30 | PC.NURSE ---
pts vitals were automatically entered, oxygen saturations charted as low d/t bad connection of pulse ox, pt remained in high 90's on room air. pt currently 96% room air.
[2023-05-21] MEDS: vancomycin 1,250 MG/250 ML PIGGYBACK 250 MG IV (01:23)
[2023-05-21] MEDS: vancomycin 100 mg/1 mL Oral Syringe 125 MG PO ×4 (01:23→19:37)
[2023-05-21] MEDS: enoxaparin 40 mg/0.4 mL Syringe SUBCUT (01:50)
[2023-05-21] MEDS: acetaminophen 650 mg/20.3 mL UDC PO ×2 (01:55→15:54)
[2023-05-21] MEDS: metroNIDAZOLE IV 500 MG/100 ML PREMIX 100 MG IV (01:56)
[2023-05-21 01:59] LABS: Lactic Acid level (Lactate) 2.3 mmol/L (0.5-2.2)
--- NOTE | 2023-05-21 02:00 | PM.HP ---
Providers/Chief Complaint Admitting Physician: Jossy Keene MD Primary Care Provider: MORENO Ferrara Chief Complaint: low O2, als, diarrhea History of Present Illness Silvestre Espinosa is a 52 year old male with a past medical history of ALS, chronically chair bound, presenting to the hospital today with fever up to 101 Fahrenheit, generalized body ache and fatigue. Patient started feeling unwell about 5 weeks ago when he developed persistent diarrhea to the point of incontinence, CT of the abdomen pelvis on May 06, 2023 had shown mild to distal sigmoid colon wall thickening suggestive of a colitis. He has a long-term PEG tube, mostly feeds pur?ed food through it. No formula. Incidentally noticed with a right subcapital impacted hip fracture sustained after a fall for which she was managed conservatively. Patient presented to the ER and was treated with oral ciprofloxacin, oral metronidazole and steroids due to her history of ulcerative colitis. Patient is currently on vedolizumab for the past 3 years and has not had any flare of his UC in many years. Last colonoscopy was about 3 years ago. He stopped all antibiotics and steroids approximately 1 week ago. His diarrhea improved, continue to be liquid however the frequency reduced from 1 every hour to 2/day. Patient was also receiving Imodium for symptomatic relief. It was discontinued in the last 1 to 2 days. Patient presents to the hospital today after developing fever up to 101 Fahrenheit at home. This morning he was noted to be febrile, diaphoretic,needing trilogy in the day time as well while typically uses it at night time. Last known NIF ?? 27 per patient's family. Nausea+, no votiming. Denies cough, chest pain, dyapnea, palpitations, syncope , blood in stools or hematemesis. Denies dysuria. 02 sat noted to be 88-95% while on trelegy, taking machine off results in drop in 02 sat. Review of Systems General: Reports: 10 or more systems reviewed and unremarkable except in HPI and below Const: Denies: fever(s), chills or body aches Eyes: Denies: change in vision, blurry vision or photophobia ENMT: Reports: hoarseness; Denies: throat pain, enlarged tonsils, odynophagia or nasal congestion Card: Denies: chest pain, palpitations, irregular heart rhythm, edema, swelling of feet/ankles, lightheadedness, pre-syncope, dyspnea on exertion or orthopnea Resp: Denies: dyspnea, productive cough, non-productive cough, wheezing, stridor, pain on inspiration, change in phlegm color, hemoptysis or chest congestion GI: Denies: abdominal pain, nausea, vomiting, hematemesis, coffee ground emesis, dysphagia, heartburn, diarrhea, constipation, GI cramping, change in stool character, hematochezia or melena : Denies: flank pain, dysuria, urinary frequency, urinary urgency, urinary hesitancy or hematuria Musc: Denies: neck pain, back pain, extremity pain, joint swelling, joint warmth or deformity Neuro: Denies: headache(s), numbness in extremities, weakness in extremities, sensory changes, difficulty walking, frequent falls, dizziness, vertigo, behavioral changes, Slurred speech present or seizure-like activity Psych: Denies: anxiety, depression, suicidal ideation or homicidal ideation Endo: Denies: polyuria, polydipsia, tired all the time, cold intolerance or hot flashes Piero/Lymph: Denies: easy bruising or easy bleeding Medications/Allergies Home Medications Medication Instructions Recorded Confirmed Last Taken Type nortriptyline 10 mg capsule 10 mg PO DAILY 04/24/20 05/16/23 03/21/23 History omeprazole 20 mg-sodium 1 packet PO DAILY 04/24/20 05/16/23 03/21/23 History bicarbonate 1,680 mg oral packet riluzole 50 mg tablet 50 mg PO Q12H 04/24/20 05/16/23 03/21/23 History vedolizumab 300 mg intravenous 300 mg IV DIRECTED 04/24/20 05/16/23 03/21/23 History solution (Entyvio) mupirocin 2 % topical ointment 1 applic topical BID #22 grams 10/15/20 05/16/23 03/21/23 Rx gabapentin 600 mg tablet 600 mg PO BEDTIME 11/29/22 05/16/23 03/21/23 History sertraline 20 mg/mL oral 20 mg PO DAILY 05/16/23 05/16/23 Unknown History concentrate (Zoloft) Allergies Allergy/AdvReac Type Severity Reaction Status Date / Time No Known Allergies Allergy Verified 05/16/23 12:45 PFSH Acute PFSH: Medical History (Updated 05/21/23 @ 06:23 by Jossy Keene MD) ALS (amyotrophic lateral sclerosis) Ulcerative (chronic) enterocolitis Surgical History History of esophageal surgery History of oral surgery Family History Denies family history of Diabetes Hypertension Social History Smoking and tobacco/nicotine status: never used tobacco/nicotine Alcohol intake: never Substance/Drug Use: never Vitals/I&O/Wt Last Vital Signs Temp 98.6 F 05/21/23 00:58 Pulse 113 H 05/21/23 04:45 Resp 12 05/21/23 04:45 BP 112/77 05/21/23 04:45 Pulse Ox 95 05/21/23 04:40 O2 Del Method BiPAP 05/21/23 01:52 CDT 05/20/23 05/20/23 05/21/23 14:59 22:59 05:59 Intake Total 1000 / 1000 50 / 1050 Output Total 175 / 175 Balance 1000 / 1000 -125 / 875 Weight last 48 hrs Weight 57.697 kg Physical Exam Narrative: General: No acute distress, AO x3 HEENT: PERRLA, pupils bilaterally equal and reactive, pallors not present Chest: Normal vesicular breath sounds, no added sounds, equal good air entry bilaterally CVS: S1-S2 regular, no murmurs, no tachycardia, no gallops, no rubs Abdomen: Soft, nontender, no organomegaly, bowel sounds present Neuro: ALS, chronically wheelchair bound Data 05/20/23 21:42 05/21/23 05:32 Micro: Microbiology 05/20/23 21:46 Blood Culture - Preliminary Blood SPECIMEN COLLECTED 05/20/23 21:42 Blood Culture - Preliminary Blood SPECIMEN COLLECTED Other data: [address] [address] [address] Scan Report Signed Patient: Silvestre Espinosa Unit #: [id number] : 1970 Age/Sex: 52 / M ADM Date: 05/20/23 Loc: ER Room/Bed: Attending Dr: Ordering Provider/Ordering MD: Mendel Ennis DO Date of Service: 05/20/23 Procedure(s): CT angio chest w abd pel w con Accession Number(s): [id number] Report Number: [id number] PROCEDURE INFORMATION: Exam: CTA Chest With Contrast Exam date and time: 05/20/2023 9:55 PM Age: 52 years old Clinical indication: Shortness of breath; Prior surgery; Surgery date: 6+ months; Surgery type: Peg tube; Patient HX: SOB with hypoxia and tachycardia. Diarrhea. History of ulcerative colitis. Patient has als. ; Additional info: Tachycardia, SOB, diarrhea TECHNIQUE: Imaging protocol: Computed tomographic angiography of the chest with contrast. Exam focused on the arteries. 3D rendering (Not supervised by radiologist): MIP and/or 3D reconstructed images were created by the technologist. Radiation optimization: All CT scans at this facility use at least one of these dose optimization techniques: automated exposure control; mA and/or kV adjustment per patient size (includes targeted exams where dose is matched to clinical indication); or iterative reconstruction. Contrast material: OMNI 350; Contrast volume: 95 ml; Contrast route: INTRAVENOUS (IV);? REPORTING DATA: Count of CT and Cardiac NM exams in prior 12 months: This patient has received [address] and 0 known cardiac nuclear medicine studies in the 12 months prior to the current study. COMPARISON: CR XR chest 1V portable [id number] 01/21/2022 1:39 PM RADIATION DOSE METRICS: Total DLP (mGy-cm): 1944.85 FINDINGS: Pulmonary arteries: Normal. No pulmonary emboli. Aorta: Unremarkable. No aortic aneurysm. No aortic dissection. Lungs: Unremarkable. No consolidation. No masses. Pleural spaces: Unremarkable. No pneumothorax. No pleural effusion. Heart: Unremarkable. No cardiomegaly. No pericardial effusion. Lymph nodes: Unremarkable. No enlarged lymph nodes. Bones/joints: Unremarkable. No acute fracture. Soft tissues: Unremarkable. PROCEDURE INFORMATION: Exam: CT Abdomen And Pelvis With Contrast Exam date and time: 05/20/2023 9:55 PM Age: 52 years old Clinical indication: Shortness of breath; Prior surgery; Surgery date: 6+ months; Surgery type: Peg tube; Patient HX: SOB with hypoxia and tachycardia. Diarrhea. History of ulcerative colitis. Patient has als. ; Additional info: Tachycardia, SOB, diarrhea TECHNIQUE: Imaging protocol: Computed tomography of the abdomen and pelvis with contrast. Radiation optimization: All CT scans at this facility use at least one of these dose optimization techniques: automated exposure control; mA and/or kV adjustment per patient size (includes targeted exams where dose is matched to clinical indication); or iterative reconstruction. Contrast material: OMNI 350; Contrast volume: 95 ml; Contrast route: INTRAVENOUS (IV);? REPORTING DATA: Count of CT and Cardiac NM exams in prior 12 months: This patient has received [address] and 0 known cardiac nuclear medicine studies in the 12 months prior to the current study. COMPARISON: CT abdomen pelvis w con* [id number] 05/06/2023 8:17 PM RADIATION DOSE METRICS: Total DLP (mGy-cm): 1944.85 FINDINGS: Tubes, catheters and devices: Gastrostomy catheter well positioned within mid gastric body. Liver: Normal. No mass. Gallbladder and bile ducts: Normal. No calcified stones. No ductal dilation. Pancreas: Normal. No ductal dilation. Spleen: Normal. No splenomegaly. Adrenal glands: Normal. No mass. Kidneys and ureters: Normal. No hydronephrosis. Stomach and bowel: There is smooth mild diffuse colonic wall thickening. Loss of the normal haustral. Negative for pericolonic stranding. Mild right colonic distension with air-fluid levels. Negative for bowel obstruction or perforation. No focal mass. Negative for pneumatosis. Appendix: No evidence of appendicitis. Intraperitoneal space: Unremarkable. No free air. No significant fluid collection. Vasculature: Unremarkable. No abdominal aortic aneurysm. Lymph nodes: Unremarkable. No enlarged lymph nodes. Urinary bladder: Unremarkable as visualized. Reproductive: Unremarkable as visualized. Bones/joints: Unremarkable. No acute fracture. Soft tissues: Unremarkable. CT/CT angio chest w abd pel w con IMPRESSION: No acute findings. ? ? IMPRESSION: 1. ? No distinct focal acute inflammatory changes in the abdomen or pelvis are identified. 2. ? There is generally mild severity diffuse colonic wall thickening changes as well as mildly prominent mucosal enhancement features. This most likely represents sequela of the known chronic inflammatory bowel disease. Acute flare cannot be excluded. A&P Assessment and plan (1) Sepsis: Likely sepsis given concerning features including elevated white blood cell count of 34,000, tachycardia, elevated lactate, ongoing diarrhea and history of recent colitis. no current organ dysfunction Source is currently under evaluation. Focal symptoms include persisting diarrhea, slightly improved after receiving antibiotics and steroids about 3 weeks ago however with recurrence earlier today. We will place patient on piperacillin/tazobactam and p.o. vancomycin for possibility of C. difficile empirically Check C. difficile PCR, check enteric bacterial panel Check CMV IgG IgM, blood in stool CMV DNA for possibility of CMV colitis since patient is on Entyvio CTA of the chest without PE, No consolidation. Severity diffuse colonic wall thickening also noted on CAT scan from 1021. Per radiology read it represents most likely sequelae of known chronic inflammatory bowel disease CT of the abdomen and pelvis showing, acute flare not excluded. Placed on prednisone 40 mg daily for now for possibility of a UC flare, though currently this is appearing to be less likely given lack of any abdominal pain and bleeding. 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
[2023-05-21 02:33] LABS: Add Urine Microscopic? YES; Bilirubin Urine Neg (Negative); Blood Urine Trace (Negative); Glucose Urine UA Norm (Normal); Ketones Urine 1+ (Negative); Leukocyte Esterase Urine Trace (Negative); Nitrate Urine Positive (Negative); Protein Urine 1+ (Negative); RBC Urine 0-4 /hpf (0-2); Specific Gravity, Urine 1.005 (1.005-1.030); Squamous Epithelial Cell Urine RARE /hpf (0-5); Urine Appearance Clear (CLEAR); Urine Color Yellow (Yellow); Urobilinogen Urine Neg (Negative); WBC Urine 0-4 /hpf (0-5); pH Urine 6.5 (5-7)
[2023-05-21 02:34] LABS: Add Urine Culture? No
--- NOTE | 2023-05-21 04:38 | PC.NURSE ---
Patient arrived on unit with trilogy machine and motorized wheelchair. Patient's spouse helped to assist staff with transfer and PEG tube administration. Home meds coded by pharmacy and placed in med bins along with peg supplies. Patient has had multiple loose stools with strong smell. CDIFF sample sent off to lab. Patient's spouse instructed in importance of PPE and cleaning with bleach.
[2023-05-21 05:47] LABS: Basophils # 0.1 10^3/uL (0.0-0.1); Basophils % 0.3 %; Hematocrit 41.5 % (37-53); Lymphocytes # 0.7 10^3/uL (0.8-4.8); Lymphocytes % 2.2 %; Mean Corpuscular HGB Conc 30.1 g/dL (30-55); Mean Corpuscular Hemoglobin 31.5 pg (27-33); Mean Corpuscular Volume 104.5 fl (82-101); Mean Platelet Volume 11.2 fL (7.4-10.4); Monocytes # 1.3 10^3/uL (0.2-0.9); Monocytes % 4.1 %; Neutrophils # 29.39 10^3/uL (1.8-7.7); Neutrophils % 92.3 %; Nucleated Red Blood Cells % 0 %; Platelet Count 298 10^3/cmm (157-399); Red Blood Count 3.97 10^6/uL (3.85-5.65); Red Cell Distribution Width 14.4 % (12.1-15.1)
[2023-05-21] MEDS: sodium chloride 0.9% 1,000 ML 75 ML IV ×2 (05:49→19:38)
[2023-05-21] MEDS: piperacillin-tazobactam 3.375 GM in sodium chloride 0.9% (plus) 50 ML IV ×2 (06:01→15:52)
[2023-05-21 06:05] LABS: Alanine Aminotransferase 25 U/L (0-41); Alkaline Phosphatase 68 U/L (40-130); Anion Gap 13.1 (5-19); Aspartate Amino Transferase 17 U/L (0-40); Blood Urea Nitrogen 12 mg/dL (6-20); Calcium 8.3 mg/dL (8.5-10.5); Carbon Dioxide 20 mmol/L (22-29); Chloride 109 mmol/L (98-107); Globulin 2.8 g/dL (1.3-4.6); Glomerular Filtration Rate 502.7 mL/min (90-130); Glucose 117 mg/dL (65-115); Lactate (Lactic Acid level) 1.2 mmol/L (0.5-2.2); Osmolality Calculated 289 mOsm/kg (285-295); Potassium 3.1 mmol/L (3.5-5.1); Sodium 139 mmol/L (136-145); Total Bilirubin 0.2 mg/dL (0.15-1.2); Total Protein 5.8 g/dL (6.6-8.7)
[2023-05-21 06:17] LABS: White Blood Count 31.85 10^3/uL (3.29-11.43)
[2023-05-21] MEDS: lidocaine 1% 5 ML in potassium chloride premix 100 ML 26.25 ML IV (06:40)
[2023-05-21] MEDS: predniSONE 20 mg Tablet 40 MG PEG-TUBE (07:53)
[2023-05-21] MEDS: pantoprazole DR 40 mg Tablet PEG-TUBE (07:54)
--- NOTE | 2023-05-21 09:18 | PC.PHAR ---
PT IS [facility]. FAXED NE FOR MED LIST TO VERIFY. WILL FOLLOW UP ON TUESDAY 05/22 WHEN THEY SEND MED LIST.
[2023-05-21] MEDS: RILUZOLE 50 MG 50 EACH PO ×2 (10:05→20:58)
--- NOTE | 2023-05-21 16:20 | ECG_ITS ---
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 Measurements Intervals [place] Rate: 125 P: 61 IN: 159 QRS: 79 QRSD: 80 T: 69 QT: 392 QTc: 567 Interpretive Statements SINUS TACHYCARDIA ABNORMAL RHYTHM ECG Compared to ECG 01/21/2022 13:49:16 No significant changes Electronically Signed On 05-21-2023 22:32:53 M1 ARMOR CREWMAN by Rosenda Luke M.D. [id number]
[2023-05-21 17:30] LABS: D Dimer 1.14 ug/mLFEU (0-0.59)
[2023-05-21] MEDS: lactated ringers 500 ML 999 ML IV (19:31)
[2023-05-21] MEDS: ondansetron 2 mg/ML SDV 2 mL 4 MG IVP (21:59)
[2023-05-22] VITALS (10 sets, daily range): BP systolic 114–146; BP diastolic 70–86; PULSE 107–120; RESP 13–18; TEMP 36.2–36.7; O2SAT 94–100
[2023-05-22] MEDS: piperacillin-tazobactam 3.375 GM in sodium chloride 0.9% (plus) 50 ML IV ×4 (00:33→23:28)
[2023-05-22] MEDS: vancomycin 100 mg/1 mL Oral Syringe 125 MG PO ×5 (00:34→23:28)
[2023-05-22] MEDS: enoxaparin 40 mg/0.4 mL Syringe SUBCUT (00:34)
[2023-05-22 05:29] LABS: Basophils % 0.2 %; Eosinophils % 0.1 %; Hematocrit 37.1 % (37-53); Lymphocytes # 1.1 10^3/uL (0.8-4.8); Lymphocytes % 5.1 %; Mean Corpuscular HGB Conc 31.5 g/dL (30-55); Mean Corpuscular Hemoglobin 31.5 pg (27-33); Monocytes # 0.7 10^3/uL (0.2-0.9); Monocytes % 3.3 %; Neutrophils # 18.84 10^3/uL (1.8-7.7); Neutrophils % 90.9 %; Nucleated Red Blood Cells % 0 %; Platelet Count 287 10^3/cmm (157-399); Red Blood Count 3.71 10^6/uL (3.85-5.65); Red Cell Distribution Width 14.4 % (12.1-15.1); White Blood Count 20.73 10^3/uL (3.29-11.43)
[2023-05-22 05:54] LABS: Alanine Aminotransferase 20 U/L (0-41); Albumin Level 3.1 g/dL (3.5-5.2); Alkaline Phosphatase 91 U/L (40-130); Anion Gap 11.4 (5-19); Aspartate Amino Transferase 26 U/L (0-40); Blood Urea Nitrogen 8 mg/dL (6-20); Calcium 8.4 mg/dL (8.5-10.5); Carbon Dioxide 25 mmol/L (22-29); Chloride 107 mmol/L (98-107); Globulin 2.8 g/dL (1.3-4.6); Glomerular Filtration Rate 314.8 mL/min (90-130); Glucose 107 mg/dL (65-115); Lactic Sepsis W/Reflex 0.6 mmol/L (0.5-2.2); Magnesium 1.8 mg/dL (1.7-2.3); Osmolality Calculated 289 mOsm/kg (285-295); Potassium 3.4 mmol/L (3.5-5.1); Sodium 140 mmol/L (136-145); Total Bilirubin 0.2 mg/dL (0.15-1.2); Total Protein 5.9 g/dL (6.6-8.7)
--- NOTE | 2023-05-22 06:48 | USCV_ITS ---
Silvestre Espinosa Age: 52 Gender: M : 1970 Exam Date: 05/22/2023 09:01 Ordering Phys: Raymundo Diaz MD Technologist: SABRINA Exam Location: [facility] [place] Indication: Swelling HISTORY: Lower extremity swelling. PROCEDURES: Venous duplex imaging was performed in bilateral lower extremities. The following venous structures were evaluated: common femoral vein, profunda vein, proximal portion of the greater saphenous vein, superficial femoral vein, and the popliteal vein. In addition, the posterior tibial and peroneal trunk were evaluated. Serial compression, augmentation maneuvers, and spectral Doppler flow evaluation were performed. FINDINGS: Normal 2-D Doppler and augmentation and compressibility throughout the lower extremity venous structures. Additional imaging through the proximal calf veins also reveals no thrombus. Limited evaluation of the greater saphenous vein is patent with no thrombus. CONCLUSIONS No DVT bilateral lower extremities. Dr. Becka Faust DO (Electronically Signed) Final Date: 22 May 2023 13:46 S
[2023-05-22] MEDS: predniSONE 20 mg Tablet 40 MG PEG-TUBE (08:45)
[2023-05-22] MEDS: pantoprazole DR 40 mg Tablet PEG-TUBE (08:45)
[2023-05-22 10:24] LABS: Cytomegalovirus Antibody (IGG) <0.60 U/mL; Cytomegalovirus Antibody (IGM) <30.00 AU/mL
[2023-05-22] MEDS: sodium chloride 0.9% 1,000 ML 75 ML IV ×2 (10:30→23:28)
[2023-05-22] MEDS: RILUZOLE 50 MG 50 EACH PO ×2 (10:31→21:00)
--- NOTE | 2023-05-22 11:25 | P.PN_ITS ---
Subjective Subjective: Seen this morning at bedside with caregiver present. Spoke to his on the phone and updated her as well. White count down to 20,000. Lactic acid is normalized. D-dimer 1.14. CT chest requested to rule out PE. Patient has been chronically sinus tachycardic as per family as noted per previous physician. Patient saturating on room air 100%. No longer requiring to wear trilogy in the daytime. He states he feels better. Frequency of diarrhea has also decreased however diarrhea is still present. Follows with Dr. Cazares in [place]. He is on Entyvio for ulcerative colitis. Last dose was last Monday. Patient in good spirits this morning. Afebrile overnight Vitals/I&O/Wt Last Vital Signs Temp 97.4 F L 05/22/23 07:31 Pulse 113 H 05/22/23 07:31 Resp 18 05/22/23 07:31 BP 131/86 05/22/23 07:31 Pulse Ox 100 05/22/23 07:31 O2 Del Method Room Air 05/22/23 03:39 O2 Flow Rate 2 05/21/23 09:40 05/21/23 05/22/23 05/22/23 22:59 06:59 14:59 Intake Total 1550 / 3055 50 / 3105 1050 / 1050 Output Total 125 / 485 Balance 1550 / 2695 -75 / 2620 1050 / 1050 Weight last 48 hrs Weight 57.697 kg Physical Exam Narrative: No acute distress Lungs clear to auscultation bilaterally no wheezes no rhonchi ? Abdomen soft ? Neuro: ALS, chronically wheelchair-bound ? Normal S1-S2 no gross murmurs ? ANO x3. Caregiver at bedside. Data 05/22/23 05:20 05/22/23 05:20 Micro: Microbiology 05/20/23 21:46 Blood Culture - Preliminary Blood NEGATIVE TO DATE 05/20/23 21:42 Blood Culture - Preliminary Blood NEGATIVE TO DATE A&P Assessment and plan (1) Hypoxia: (2) ALS (amyotrophic lateral sclerosis): (3) Diarrhea: (4) Sepsis: (5) Colitis: (6) Hypokalemia: Plan #Sepsis secondary to diarrhea, colitis #Acute hypoxia present on admission - improving #ALS #Ulcerative Collitis, possible flare #Hypokalemia - Potassium 3.4. Replete today ? Sepsis present on admission. - Continue zosyn at this time - Continue PO vancomycin till c.diff result returns - CMV studies, c.diff studies pending at this time - Pt on Entyvio - Pt to f/u with GI Dr. Cazares as outpatient after dc - Continue prednisone 40 mg daily - BCx pending - Continue NS 75 cc/hr - lactic acid has normalized - UCx pending - CT chest r/o PE or consolidation - Continue trilogy as directed - CTA requested. Dimer slightly elevated - Continue rilozule daily - Nortriptaline 10 daily - Check venous doppler Diet: Puree via PEG, may be continued lovenox 40 subc daily Attestations Medical Necessity Statement*: Anticipate another 48 hour stay. Continue above medical management. Patient is improving. Coding Level of Care Code 06531 Diagnoses Hypoxia R09.02 ALS (amyotrophic lateral sclerosis) G12.21 Diarrhea R19.7 Sepsis A41.9 Colitis K52.9 Hypokalemia E87.6
[2023-05-22] MEDS: potassium chloride oral liq 20 mEq/15 mL UDC 40 MEQ PO (13:07)
[2023-05-23] VITALS (7 sets, daily range): BP systolic 124–139; BP diastolic 76–87; PULSE 91–112; RESP 13–18; TEMP 36.4–36.7; O2SAT 96–99
[2023-05-23] MEDS: enoxaparin 40 mg/0.4 mL Syringe SUBCUT ×2 (01:22→23:36)
[2023-05-23 06:20] LABS: Basophils % 0.2 %; Eosinophils % 0.4 %; Hematocrit 36.8 % (37-53); Lymphocytes # 1.3 10^3/uL (0.8-4.8); Lymphocytes % 12.1 %; Mean Corpuscular HGB Conc 30.4 g/dL (30-55); Mean Corpuscular Hemoglobin 30.9 pg (27-33); Mean Corpuscular Volume 101.4 fl (82-101); Mean Platelet Volume 11.7 fL (7.4-10.4); Monocytes # 0.6 10^3/uL (0.2-0.9); Monocytes % 5.3 %; Neutrophils % 81.7 %; Nucleated Red Blood Cells % 0 %; Platelet Count 289 10^3/cmm (157-399); Red Blood Count 3.63 10^6/uL (3.85-5.65); Red Cell Distribution Width 14.3 % (12.1-15.1); White Blood Count 11.12 10^3/uL (3.29-11.43)
[2023-05-23] MEDS: piperacillin-tazobactam 3.375 GM in sodium chloride 0.9% (plus) 50 ML IV ×3 (06:33→23:36)
[2023-05-23] MEDS: vancomycin 100 mg/1 mL Oral Syringe 125 MG PO ×4 (06:34→23:36)
[2023-05-23 06:41] LABS: Blood Urea Nitrogen 5 mg/dL (6-20); Calcium 8.4 mg/dL (8.5-10.5); Carbon Dioxide 26 mmol/L (22-29); Chloride 105 mmol/L (98-107); Glomerular Filtration Rate 502.7 mL/min (90-130); Glucose 86 mg/dL (65-115); Osmolality Calculated 291 mOsm/kg (285-295); Sodium 142 mmol/L (136-145)
[2023-05-23 06:42] LABS: Anion Gap 15.4 (5-19); Potassium 4.4 mmol/L (3.5-5.1)
[2023-05-23] MEDS: predniSONE 20 mg Tablet 40 MG PEG-TUBE (09:56)
[2023-05-23] MEDS: pantoprazole DR 40 mg Tablet PEG-TUBE (09:56)
[2023-05-23] MEDS: RILUZOLE 50 MG 50 EACH PO ×2 (09:56→20:27)
--- NOTE | 2023-05-23 11:50 | PC.RESP ---
Today pt was very adamant that he cannot use the NIF adaptor. Pt states he has only been able to use a mask at clinic.
[2023-05-23] MEDS: sodium chloride 0.9% 1,000 ML 75 ML IV ×2 (12:28→23:36)
--- NOTE | 2023-05-23 13:14 | P.PN_ITS ---
Subjective Subjective: Seen this morning. Patient is still incontinent of stool however diarrhea frequency has decreased. CMV serologies negative so far. C. difficile testing is still pending. Enteric panel is also pending. Patient however subjectively feels better. Energy level is better. at bedside. He sees Dr. Cazares in [place] who is aware of his diarrhea as this started 5 weeks ago. Vitals/I&O/Wt Last Vital Signs Temp 97.6 F 05/23/23 12:00 Pulse 109 H 05/23/23 12:00 Resp 17 05/23/23 12:00 BP 124/80 05/23/23 12:00 Pulse Ox 98 05/23/23 12:00 O2 Del Method Room Air 05/23/23 12:00 O2 Flow Rate 2 05/21/23 09:40 05/22/23 05/23/23 05/23/23 22:59 06:59 14:59 Intake Total 50 / 1100 1022.5 / 2122.5 1035 / 1035 Output Total 600 / 600 300 / 300 Balance -550 / 500 1022.5 / 1522.5 735 / 735 Physical Exam Narrative: No acute distress Lungs clear to auscultation bilaterally no wheezes no rhonchi ? Abdomen soft ? Neuro: ALS, chronically wheelchair-bound ? Normal S1-S2 no gross murmurs ? ANO x3. at bedside Data 05/23/23 05:35 05/23/23 05:35 A&P Assessment and plan (1) Hypoxia: (2) ALS (amyotrophic lateral sclerosis): (3) Diarrhea: (4) Sepsis: (5) Colitis: (6) Hypokalemia: Plan #Sepsis secondary to diarrhea, colitis #Acute hypoxia present on admission - improving #ALS #Ulcerative Collitis, possible flare #Hypokalemia- resolved ? Sepsis present on admission. - Continue zosyn at this time - Continue PO vancomycin till c.diff result returns - CMV studies, c.diff studies pending at this time - Pt on Entyvio - Pt to f/u with GI Dr. Cazares as outpatient after dc - Continue prednisone 40 mg daily - BCx pending - Continue NS 75 cc/hr - lactic acid has normalized - UCx pending - CT chest r/o PE or consolidation - Continue trilogy as directed - CTA requested. Dimer slightly elevated. Cannot obtain test due to ALS and fact that patient cannot lay flat without his bipap. VQ can may not be done for same reason. Patient unable to hold his breath for testing. - Continue rilozule daily - Nortriptaline 10 daily - Check venous doppler - negative - We will discuss his case with GI at [place] Dr. Cazares. I have left a message to call back. Patient may need transfer to higher level of care with GI capabilities for acute GI workup. Diet: Puree via PEG, may be continued lovenox 40 subc daily Attestations Medical Necessity Statement*: Continue above management. Patient may need transfer to higher level of care with GI capabilities for acute GI workup. Still having diarrhea Diagnoses Hypoxia R09.02 ALS (amyotrophic lateral sclerosis) G12.21 Diarrhea R19.7 Sepsis A41.9 Colitis K52.9 Hypokalemia E87.6
[2023-05-23] MEDS: cetirizine 10 mg Tablet PO (14:56)
[2023-05-24] VITALS (8 sets, daily range): BP systolic 128–145; BP diastolic 70–95; PULSE 85–113; RESP 18–22; TEMP 36.4–37.2; O2SAT 92–100
[2023-05-24 05:43] LABS: Basophils % 0.2 %; Eosinophils % 0.3 %; Hematocrit 36.3 % (37-53); Lymphocytes % 30.8 %; Mean Corpuscular HGB Conc 30.6 g/dL (30-55); Mean Corpuscular Hemoglobin 30.5 pg (27-33); Mean Corpuscular Volume 99.7 fl (82-101); Mean Platelet Volume 11.1 fL (7.4-10.4); Monocytes # 0.4 10^3/uL (0.2-0.9); Monocytes % 6.3 %; Neutrophils # 4.08 10^3/uL (1.8-7.7); Neutrophils % 62.2 %; Nucleated Red Blood Cells % 0 %; Platelet Count 308 10^3/cmm (157-399); Red Blood Count 3.64 10^6/uL (3.85-5.65); Red Cell Distribution Width 13.9 % (12.1-15.1); White Blood Count 6.55 10^3/uL (3.29-11.43)
[2023-05-24] MEDS: vancomycin 100 mg/1 mL Oral Syringe 125 MG PO ×4 (05:55→23:53)
[2023-05-24] MEDS: piperacillin-tazobactam 3.375 GM in sodium chloride 0.9% (plus) 50 ML IV (05:55)
[2023-05-24 06:07] LABS: Anion Gap 10.5 (5-19); Blood Urea Nitrogen 7 mg/dL (6-20); Calcium 8.4 mg/dL (8.5-10.5); Carbon Dioxide 32 mmol/L (22-29); Chloride 103 mmol/L (98-107); Glomerular Filtration Rate 502.7 mL/min (90-130); Glucose 97 mg/dL (65-115); Magnesium 2.1 mg/dL (1.7-2.3); Osmolality Calculated 292 mOsm/kg (285-295); Potassium 3.5 mmol/L (3.5-5.1); Sodium 142 mmol/L (136-145)
[2023-05-24 09:45] LABS: Erythrocyte Sedimentation Rate 16 mm/hr (0-10)
[2023-05-24 09:47] LABS: C Reactive Protein 24.1 mg/L (0.0-4.9)
--- NOTE | 2023-05-24 10:24 | XR_ITS ---
WS: [id number] KUB, AP portable supine, 05/24/2023 Clinical Data: r/o dilated colon Comparison: None. Findings: No abnormal intraabdominal masses or calcifications are seen. There is no dilatated small bowel or ev idence of obstruction. There is a moderate amount of air in the colon. There is a gastrostomy tube overlying the stomach. Th ere are monitor leads on the abdominal wall. Impression: Moderate amount of air in the colon.
[2023-05-24] MEDS: pantoprazole DR 40 mg Tablet PEG-TUBE (10:42)
[2023-05-24] MEDS: predniSONE 20 mg Tablet 40 MG PEG-TUBE (10:42)
[2023-05-24] MEDS: RILUZOLE 50 MG 50 EACH PO ×2 (10:42→21:11)
[2023-05-24] MEDS: cetirizine 10 mg Tablet PO (10:42)
--- NOTE | 2023-05-24 13:02 | PM.PN ---
Subjective Subjective: C. difficile positive. Patient clinically doing better however still having incontinent stool. Offers no other complaints at this time. Vitals/I&O/Wt Last Vital Signs Temp 97.7 F 05/24/23 12:00 Pulse 90 05/24/23 12:00 Resp 22 H 05/24/23 12:00 BP 141/70 05/24/23 12:00 Pulse Ox 92 05/24/23 12:00 O2 Del Method Room Air 05/24/23 12:00 O2 Flow Rate 2 05/21/23 09:40 05/23/23 05/24/23 05/24/23 22:59 06:59 14:59 Intake Total 50 / 1135 935 / 2070 50 / 50 Output Total 350 / 650 Balance -300 / 485 935 / 1420 50 / 50 Physical Exam Narrative: No acute distress Lungs clear to auscultation bilaterally no wheezes no rhonchi ? Abdomen soft ? Neuro: ALS, chronically wheelchair-bound ? Normal S1-S2 no gross murmurs ? ANO x3. Caregiver at bedside Data 05/24/23 05:14 05/24/23 05:14 A&P Assessment and plan (1) Hypoxia: (2) ALS (amyotrophic lateral sclerosis): (3) Diarrhea: (4) Sepsis: (5) Colitis: (6) Hypokalemia: Plan #Sepsis secondary to diarrhea, colitis #Acute hypoxia present on admission - improving #ALS #Ulcerative Collitis, possible flare #Hypokalemia- resolved ? Sepsis present on admission. -Stop Zosyn. - Continue PO vancomycin x14 days total - CMV studies negative, C. difficile positive. - Pt on Entyvio - Pt to f/u with GI Dr. Cazares as outpatient after dc - Continue prednisone 40 mg daily - BCx negative to date - Continue NS 75 cc/hr - lactic acid has normalized - UCx negative to date - CT chest r/o PE or consolidation - Continue trilogy as directed - CTA requested. Dimer slightly elevated. Cannot obtain test due to ALS and fact that patient cannot lay flat without his bipap. VQ can may not be done for same reason. Patient unable to hold his breath for testing. - Continue rilozule daily - Nortriptaline 10 daily - Check venous doppler - negative -Discussed with Dr. 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 He has requested for a KUB and examined this patient patient has chronic dilatation patient will be started on a low-dose along with p.o. vancomycin. Will complete 14 days of p.o. vancomycin for the patient. Patient may have Imodium. Every 6 hours with maximum of 8 mg/day. We will have to closely watch for constipation. Patient will see Dr. Cazares next week . Dr. Cazares: [phone]. Family has been updated. Plan for discharge in a.m. Diet: Puree via PEG, may be continued lovenox 40 subc daily Attestations Medical Necessity Statement*: Plan for discharge in a.m. Diagnoses Hypoxia R09.02 ALS (amyotrophic lateral sclerosis) G12.21 Diarrhea R19.7 Sepsis A41.9 Colitis K52.9 Hypokalemia E87.6
[2023-05-24] MEDS: sodium chloride 0.9% 1,000 ML 75 ML IV (13:10)
[2023-05-24] MEDS: loperamide liquid 1 mg/7.5 mL Btl 120 mL 2 MG PO (17:54)
[2023-05-24] MEDS: enoxaparin 40 mg/0.4 mL Syringe SUBCUT (23:53)
[2023-05-25] MEDS: sodium chloride 0.9% 1,000 ML 75 ML IV (02:23)
[2023-05-25 05:00] VITALS: BP 143/81; PULSE 93; RESP 18; TEMP 36.4; O2SAT 99
[2023-05-25] MEDS: vancomycin 100 mg/1 mL Oral Syringe 125 MG PO ×2 (05:31→11:27)
[2023-05-25 06:00] VITALS: PULSE 78
[2023-05-25 06:13] LABS: Basophils % 0.4 %; Eosinophils % 0.6 %; Hematocrit 35.7 % (37-53); Lymphocytes # 2.2 10^3/uL (0.8-4.8); Lymphocytes % 42.9 %; Mean Corpuscular HGB Conc 31.7 g/dL (30-55); Mean Corpuscular Hemoglobin 31.3 pg (27-33); Mean Corpuscular Volume 98.9 fl (82-101); Mean Platelet Volume 11.3 fL (7.4-10.4); Monocytes # 0.4 10^3/uL (0.2-0.9); Monocytes % 8.4 %; Neutrophils # 2.42 10^3/uL (1.8-7.7); Neutrophils % 47.3 %; Nucleated Red Blood Cells % 0 %; Platelet Count 310 10^3/cmm (157-399); Red Blood Count 3.61 10^6/uL (3.85-5.65); Red Cell Distribution Width 13.7 % (12.1-15.1); White Blood Count 5.11 10^3/uL (3.29-11.43)
[2023-05-25 06:34] LABS: Anion Gap 12.7 (5-19); Blood Urea Nitrogen 4 mg/dL (6-20); Calcium 8.4 mg/dL (8.5-10.5); Carbon Dioxide 31 mmol/L (22-29); Chloride 102 mmol/L (98-107); Glomerular Filtration Rate 502.7 mL/min (90-130); Glucose 78 mg/dL (65-115); Osmolality Calculated 290 mOsm/kg (285-295); Potassium 3.7 mmol/L (3.5-5.1); Sodium 142 mmol/L (136-145)
[2023-05-25 08:15] VITALS: BP 128/80; PULSE 110; RESP 16; TEMP 36.4; O2SAT 94
[2023-05-25] MEDS: predniSONE 20 mg Tablet 40 MG PEG-TUBE (10:01)
[2023-05-25] MEDS: cetirizine 10 mg Tablet PO (10:01)
[2023-05-25] MEDS: pantoprazole DR 40 mg Tablet PEG-TUBE (10:01)
[2023-05-25] MEDS: RILUZOLE 50 MG 50 EACH PO (10:06)
--- NOTE | 2023-05-25 10:23 | P.DS_ITS ---
Discharge Providers Date of Admission: 05/21/23 00:48 Date of Discharge: May 25, 2023 Attending Provider at Admission: Jossy Keene MD Attending Provider at Discharge: Cole Contreras MD Primary Care Provider: MORENO Ferrara Diagnoses at Discharge Discharge Diagnosis (1) Hypoxia: Status: Acute (2) ALS (amyotrophic lateral sclerosis): Status: Acute (3) Diarrhea: Status: Acute (4) Sepsis: Status: Acute (5) Colitis: Status: Acute (6) Hypokalemia: Status: Acute Reason for Visit Reason for Visit: low O2, als, diarrhea Brief History: History as per HPI: Silvestre Espinosa is a 52 year old male with a past medical history of ALS, chronically chair bound, presenting to the hospital today with fever up to 101 Fahrenheit, generalized body ache and fatigue. Patient started feeling unwell about 5 weeks ago when he developed persistent diarrhea to the point of incontinence, CT of the abdomen pelvis on May 06, 2023 had shown mild to distal sigmoid colon wall thickening suggestive of a colitis.? He has a long-term PEG tube, mostly feeds pur?ed food through it.? No formula.? Incidentally noticed with a right subcapital impacted hip fracture sustained after a fall for which she was managed conservatively.? Patient presented to the ER and was treated with oral ciprofloxacin, oral metronidazole and steroids due to her history of ulcerative colitis.? Patient is currently on vedolizumab for the past 3 years and has not had any flare of his UC in many years.? Last colonoscopy was about 3 years ago.? He stopped all antibiotics and steroids approximately 1 week ago. His diarrhea improved, continue to be liquid however the frequency reduced from 1 every hour to 2/day.? Patient was also receiving Imodium for symptomatic relief.? It was discontinued in the last 1 to 2 days. Patient presents to the hospital today after developing fever up to 101 Fahrenheit at home.? This morning he was noted to be febrile, diaphoretic,needing trilogy in the day time as well while typically uses it at night time. Last known NIF ?? 27 per patient's family. Nausea+, no votiming. Denies cough, chest pain, dyapnea, palpitations, syncope , blood in stools or hematemesis. Denies dysuria. 02 sat noted to be 88-95% while on trelegy, taking machine off results in drop in 02 sat. Hospital Course Hospital Course Patient was admitted to the hospital further evaluation and management of sepsis in setting of significant diarrhea causing dehydration. He was started on IV fluids. With concerns for ulcerative colitis. He was started on oral prednisone. Given sepsis, significant leukocytosis and hypokalemia he was also started on oral vancomycin C. difficile studies were sent out. Hospitalization was prolonged due to delayed results of C. difficile stool studies along with patient having incontinent multiple episodes of bowel movements a day. Care was discussed in detail with patient's outpatient regional operations manager. Eventually C. difficile came back positive. Patient was started on low-dose Lomotil as per his outpatient regional operations manager. Patient responded well to the treatment. He has been discharged on oral vancomycin for 14 days. He was advised in detail to make sure that he does have 2-3 soft bowel movements a day. He is also advised if he has no bowel movement he should present back to the ER or speak to his outpatient regional operations manager. He was also advised not to take Imodium until he starts having multiple incontinent bowel movements again. Physical Exam Narrative: No acute distress Lungs clear to auscultation bilaterally no wheezes no rhonchi ? Abdomen soft ? Neuro: ALS, chronically wheelchair-bound ? Normal S1-S2 no gross murmurs ? ANO x3. Caregiver at bedside Discharge Data Studies Completed and Pending Completed Studies During Hospitalization Category Date Time Status CTA chest CT abdomen pelvis [CT angio chest w abd pel w Cat Scan 05/20/23 21:32 Completed con] Stat XR KUB portable [id number] Stat Exams 05/24/23 10:24 [place] [id number] Routine Ultrasound 05/22/23 06:48 Completed Pending at discharge Category Date Time Status B12 [Vitamin B12] Routine Lab 05/25/23 05:26 Received Blood Culture Stat Lab 05/20/23 21:46 Results CMV PCR [CYTOMEGALOVIRUS DNA, QN, REAL] AM LABS Lab 05/21/23 01:20 Received Complete Blood Count w/Auto AM LABS Lab 05/26/23 04:00 Ordered Comprehensive Metabolic Panel AM LABS Lab 05/26/23 04:00 Ordered Enteric Bacteria [Salmonella / Shigella / Campy] Lab 05/21/23 05:14 Results Routine Fecal Fat, Qualitative Routine Lab 05/23/23 13:19 Ordered Folate Level AM LABS Lab 05/26/23 04:00 Ordered Hemoglobin A1C AM LABS Lab 05/26/23 04:00 Ordered Lipid Profile w/VLDL Routine Lab 05/26/23 04:00 Ordered MAG [Magnesium] AM LABS Lab 05/26/23 04:00 Ordered MAG [Magnesium] AM LABS Lab 05/27/23 04:00 Ordered MAG [Magnesium] AM LABS Lab 05/28/23 04:00 Ordered PHOS [Phosphorus] AM LABS Lab 05/26/23 04:00 Ordered PHOS [Phosphorus] AM LABS Lab 05/27/23 04:00 Ordered PHOS [Phosphorus] AM LABS Lab 05/28/23 04:00 Ordered TIBC [Total Iron Binding Capacity] Routine Lab 05/25/23 05:26 Received Thyroid Stimulating Hormone Stat Lab 05/25/23 05:26 Received Radiology Impressions Chest/Abdomen/Pelvis CT 05/20/23 21:32 IMPRESSION: No acute findings. IMPRESSION: 1. No distinct focal acute inflammatory changes in the abdomen or pelvis are identified. 2. There is generally mild severity diffuse colonic wall thickening changes as well as mildly prominent mucosal enhancement features. This most likely represents sequela of the known chronic inflammatory bowel disease. Acute flare cannot be excluded. Laboratory Results WBC 5.11 10^3/uL (3.29-11.43) 05/25/23 05:26 RBC 3.61 10^6/uL (3.85-5.65) L 05/25/23 05:26 Hgb 11.30 g/dL (11.27-16.99) 05/25/23 05:26 Hct 35.7 % (37-53) L 05/25/23 05:26 MCV 98.9 fl (82-101) 05/25/23 05:26 MCH 31.3 pg (27-33) 05/25/23 05:26 MCHC 31.7 g/dL (30-55) 05/25/23 05:26 RDW 13.7 % (12.1-15.1) 05/25/23 05:26 Plt Count 310 10^3/cmm (157-399) 05/25/23 05:26 MPV 11.3 fL (7.4-10.4) H 05/25/23 05:26 Neut % (Auto) 47.3 % 05/25/23 05:26 Lymph % (Auto) 42.9 % 05/25/23 05:26 [place] % (Auto) 8.4 % 05/25/23 05:26 Eos % (Auto) 0.6 % 05/25/23 05:26 Baso % (Auto) 0.4 % 05/25/23 05:26 Neut # (Auto) 2.42 10^3/uL (1.8-7.7) 05/25/23 05:26 Lymph # (Auto) 2.2 10^3/uL (0.8-4.8) 05/25/23 05:26 [place] # (Auto) 0.4 10^3/uL (0.2-0.9) 05/25/23 05:26 Eos # (Auto) 0.0 10^3/uL (0.0-0.8) 05/25/23 05:26 Baso # (Auto) 0.0 10^3/uL (0.0-0.1) 05/25/23 05:26 Nucleated RBC % (auto) 0 % 05/25/23 05:26 Nucleated RBCs # 0.0 /100WBC 05/25/23 05:26 ESR 16 mm/hr (0-10) H 05/24/23 05:14 D-Dimer 1.14 ug/mLFEU (0-0.59) H 05/21/23 17:06 Sodium 142 mmol/L (136-145) 05/25/23 05:26 Potassium 3.7 mmol/L (3.5-5.1) 05/25/23 05:26 Chloride 102 mmol/L (98-107) 05/25/23 05:26 Carbon Dioxide 31 mmol/L (22-29) H 05/25/23 05:26 Anion Gap 12.7 (5-19) 05/25/23 05:26 BUN 4 mg/dL (6-20) L 05/25/23 05:26 Creatinine 0.2 mg/dL (0.7-1.2) L 05/25/23 05:26 GFR Calculation 502.7 mL/min (90-130) H 05/25/23 05:26 Glucose 78 mg/dL (65-115) 05/25/23 05:26 Calculated Osmolality 290 mOsm/kg (285-295) 05/25/23 05:26 Lactic Acid 0.6 mmol/L (0.5-2.2) 05/22/23 05:20 Lactic Acid (Sepsis) 2.3 mmol/L (0.5-2.2) H 05/21/23 01:20 TANK DRIVER Lactate 1.2 mmol/L (0.5-2.2) 05/21/23 05:32 Calcium 8.4 mg/dL (8.5-10.5) L 05/25/23 05:26 Phosphorus 3.2 mg/dL (2.5-4.5) 05/20/23 21:42 Magnesium 2.1 mg/dL (1.7-2.3) 05/24/23 05:14 Total Bilirubin 0.2 mg/dL (0.15-1.2) 05/22/23 05:20 AST 26 U/L (0-40) 05/22/23 05:20 ALT 20 U/L (0-41) 05/22/23 05:20 Alkaline Phosphatase 91 U/L (40-130) 05/22/23 05:20 C-Reactive Protein 24.1 mg/L (0.0-4.9) H 05/24/23 05:14 Total Protein 5.9 g/dL (6.6-8.7) L 05/22/23 05:20 Albumin 3.1 g/dL (3.5-5.2) L 05/22/23 05:20 Globulin 2.8 g/dL (1.3-4.6) 05/22/23 05:20 Lipase 12 U/L (13-60) L 05/20/23 21:42 Procalcitonin 1.83 ng/mL (0-0.5) H 05/20/23 21:42 Urine Color Yellow (Yellow) 05/21/23 02:05 Urine Appearance Clear (CLEAR) 05/21/23 02:05 Urine pH 6.5 (5-7) 05/21/23 02:05 Ur Specific [place] 1.005 (1.005-1.030) 05/21/23 02:05 Urine Protein 1+ (Negative) H 05/21/23 02:05 Urine Glucose (UA) Norm (Normal) 05/21/23 02:05 Urine Ketones 1+ (Negative) H 05/21/23 02:05 Urine Blood Trace (Negative) H 05/21/23 02:05 Urine Nitrate Positive (Negative) H 05/21/23 02:05 Urine Bilirubin Neg (Negative) 05/21/23 02:05 Urine Urobilinogen Neg mg/dL (Negative) 05/21/23 02:05 Ur Leukocyte Esterase Trace (Negative) H 05/21/23 02:05 Urine RBC 0-4 /hpf (0-2) H 05/21/23 02:05 Urine WBC 0-4 /hpf (0-5) H 05/21/23 02:05 Ur Squamous Epith Cells Rare /hpf (0-5) 05/21/23 02:05 Amorphous Sediment Not Reportable 05/21/23 02:05 Urine Bacteria None /hpf (NONE) 05/21/23 02:05 Nasal Influ A H1 2008 PCR Not detected (NOT DETECT) 05/20/23 21:44 Stl C. difficile Result See note A 05/21/23 05:14 Adenovirus (PCR) Not detected (NOT DETECT) 05/20/23 21:44 C. pneumoniae DNA (PCR) Not detected (NOT DETECT) 05/20/23 21:44 Coronavirus 229E (PCR) Not detected (NOT DETECT) 05/20/23 21:44 CMV Culture Source Cancelled 05/21/23 Unknown CMV IgG Ab <0.60 U/mL 05/21/23 00:00 CMV IgM Ab <30.00 AU/mL 05/21/23 00:00 CMV DNA Quant PCR Cancelled 05/21/23 Unknown CMV Qnt PCR Interp Cancelled 05/21/23 Unknown Human Metapneumovir PCR Not detected (NOT DETECT) 05/20/23 21:44 Influenza A (H1) PCR Not detected (NOT DETECT) 05/20/23 21:44 Influenza A (H3) PCR Not detected (NOT DETECT) 05/20/23 21:44 Influenza Type A (PCR) Not detected (NOT DETECT) 05/20/23 21:44 Influenza Type B (PCR) Not detected (NOT DETECT) 05/20/23 21:44 M. pneumoniae (PCR) Not detected (NOT DETECT) 05/20/23 21:44 Parainfluenza 1 (PCR) Not detected (NOT DETECT) 05/20/23 21:44 Parainfluenza 2 (PCR) Not detected (NOT DETECT) 05/20/23 21:44 Parainfluenza 3 (PCR) Not detected (NOT DETECT) 05/20/23 21:44 Parainfluenza 4 (PCR) Not detected (NOT DETECT) 05/20/23 21:44 RSV Type A (PCR) Not detected (NOT DETECT) 05/20/23 21:44 RSV Type B (PCR) Not detected (NOT DETECT) 05/20/23 21:44 Entero/Rhino (PCR) Not detected (NOT DETECT) 05/20/23 21:44 SARS-CoV-2 (PCR) Not detected (NOT DETECT) 05/20/23 21:44 Vitals Last Vital Signs Temp 97.5 F L 05/25/23 08:15 Pulse 110 H 05/25/23 08:15 Resp 16 05/25/23 08:15 BP 128/80 05/25/23 08:15 Pulse Ox 94 05/25/23 08:15 O2 Del Method Room Air 05/25/23 08:15 O2 Flow Rate 2 05/21/23 09:40 Discharge Plan Discharge Patient Disposition: Home Condition: Stable Prescriptions: New loperamide 1 mg/7.5 mL Liquid 2 mg PO TID PRN (Reason: Diarrhea) Qty: 10 0RF Vancocin 125 mg capsule 125 mg PO QID 14 Days Qty: 56 0RF prednisone 20 mg Tablet 40 mg peg-tube DAILY 7 Days Qty: 14 0RF Continued sertraline [Zoloft] 20 mg/mL concentrate 20 mg PO DAILY riluzole 50 mg Tablet 50 mg PO Q12H omeprazole-sodium bicarbonate 20-1,680 mg Packet 1 packet PO DAILY Entyvio 300 mg Recon Soln 300 mg IV DIRECTED Rx Instructions: every 8 weeks nortriptyline 10 mg Capsule 10 mg PO DAILY gabapentin 600 mg Tablet 600 mg PO BEDTIME Discharge Orders: Discharge Order (Routine); Ordered 05/25/23 Ordered By: Cole Contreras Referrals: Chel Weinstein FNP [Primary Care Provider] - 06/01/23 3:30 pm () Patient Instructions: Loperamide (By mouth), Prednisone (By mouth) (predniSONE Intensol, Prednicot, Deltasone, Elkin), Vancomycin (By mouth), Hypokalemia (DC), Ulcerative Colitis (DC), C. Diff (Clostridioides Difficile) Infection (DC), Hypoxia (GEN), Opioid Safety Activity Restrictions/Additional Instructions: Continue taking oral vancomycin for next 14 days. Do not take Imodium again until unless you have multiple incontinent bowel movements a day. Please make sure you have soft bowel movements daily. If you do not have any Bowel movements for couple of days of started having crampy bowel movements please present back to the ER or speak with your outpatient regional operations manager. Please follow-up with your outpatient regional operations manager within next 1 week. Discharge Attestations Time Spent in Discharge Care*: greater than 30 min Specific Discharge Activities: educating patient, educating and/or supporting family/caregiver, discussing with pcp/other providers, discussing with correctional counselor/case manager/social workers/dc planners, documenting/other paperwork and evaluating patient/reviewing data Status at Discharge: Cognitive status at discharge: cognitively intact , Behavioral status at discharge: cooperative , Functional status at discharge: wheelchair bound , Overall status at discharge: patient is back to baseline Quality Metrics Clinical Quality Measures [ No reported AMI, CVA or VTE this stay] Coding Level of Care Code 49901 Total time (in minutes) for Discharge: 50 Diagnoses Hypoxia R09.02 ALS (amyotrophic lateral sclerosis) G12.21 Diarrhea R19.7 Sepsis A41.9 Colitis K52.9 Hypokalemia E87.6
[2023-05-25 10:31] LABS: Iron 102 ug/dL (59-158); Percent Saturation 65.3 % (20-50); Total Iron Binding Capacity 156 mcg/dl; Unsaturated Iron Binding 54 ug/dL (112-347)
[2023-05-25 10:47] LABS: Vitamin B12 1634 pg/mL (232-1245)
[2023-05-26 15:14] LABS: CMV DNA By PCR NOT DETECTED; CMV DNA, QN PCR NOT DETECTED Log IU/mL; SOURCE WHOLE BLOOD
== END 2023-05-25 12:40 | disposition home or self-care (01) | DRG 872 ==
LOC: ER 22:20 → ICU 05-21 00:29 → MEDSURG 05-22 03:06
PROVIDERS: Internal Medicine; Admitting Provider Student in an Organized Health Care Education/Training Program; Emergency Provider Emergency Medicine; PCP Nurse Practitioner; Visit Provider Student in an Organized Health Care Education/Training Program
DX: A41.9 Sepsis, unspecified organism (principal); K51.90 Ulcerative colitis, unspecified, without complications; A04.72 Enterocolitis due to Clostridium difficile, not specified as recurrent; G12.21 Amyotrophic lateral sclerosis; Z99.3 Dependence on wheelchair; R09.02 Hypoxemia; E87.6 Hypokalemia; E86.0 Dehydration
CPT/HCPCS: 36415; 71275; 74018; 74177; 80048; 80053; 81001; 82607; 83540; 83550; 83605; 83690; 83735; 84100; 84145; 84443; 85025; 85378; 85651; 86140; 87040; 87045; 87324; 87427; 87449; 87486; 87496; 87581; 87633; 93005; 93970; 94664; 96365; 96367; 96372; 99285; J1650; J2405; J2543; J3370; J3480; J3490; J7030; J7120; J7512; Q9967

== ENCOUNTER 2023-06-09 02:46 | Inpatient (IN) | payer OTHER, SELFPAY ==
[2023-06-09] VITALS (10 sets, daily range): BP systolic 114–136; BP diastolic 76–94; PULSE 105–113; RESP 16–20; TEMP 36.5–37; O2SAT 93–98; BMI 18.7
--- NOTE | 2023-06-09 03:00 | CTR_ITS ---
PROCEDURE INFORMATION: Exam: CT Abdomen And Pelvis With Contrast Exam date and time: 06/09/2023 3:24 AM Age: 52 years old Clinical indication: Abdominal pain; Generalized; Prior surgery; Surgery date: 6+ months; Surgery type: Peg tube; Patient HX: Diffuse abd pain starting yesterday. Recent hospitalization earlier in May for c diff. History of als. TECHNIQUE: Imaging protocol: Computed tomography of the abdomen and pelvis with contrast. Radiation optimization: All CT scans at this facility use at least one of these dose optimization techniques: automated exposure control; mA and/or kV adjustment per patient size (includes targeted exams where dose is matched to clinical indication); or iterative reconstruction. Contrast material: OMNI 350; Contrast volume: 75 ml; Contrast route: INTRAVENOUS (IV); REPORTING DATA: Count of CT and Cardiac NM exams in prior 12 months: This patient has received 2 known CTs and 0 known cardiac nuclear medicine studies in the 12 months prior to the current study. COMPARISON: CT angio chest w abd pel w con 05/20/2023 9:55 PM RADIATION DOSE METRICS: Total DLP (mGy-cm): 895.31 FINDINGS: Lungs: The lung bases are clear. Diaphragm: Small hiatal hernia. Fluid in the lower esophagus could be related to gastroesophageal reflux and/or vomiting. Suspect mild to moderate mucosal/wall thickening involving the lower esophagus, although this could be a transient appearance. While nonspecific, the findings could represent evidence for esophagitis. Neoplasm less likely, not entirely excluded. Please correlate clinically. Liver: Unremarkable. Gallbladder and bile ducts: No visible gallstones by CT. No biliary tree dilation. Pancreas: Unremarkable. Spleen: Unremarkable. Adrenal glands: Unremarkable. Kidneys and ureters: Unremarkable. Stomach and bowel: There is dilation of much of the small bowel. Small bowel is dilated up to about 4 cm in diameter. The distal ileum appears decompressed. The appearance is consistent with a mid to distal small bowel obstruction. There is associated gastric distention. A percutaneous gastrostomy tube extends into the stomach. There are no CT findings to strongly suggest diverticulitis or colitis. Negative CT does not entirely exclude colitis, so follow-up may be helpful, as clinically directed. Appendix: The appendix is not identified with certainty, however no pericecal inflammatory changes are seen. Intraperitoneal space: No free intraperitoneal air, or ascites. Vasculature: No evidence for abdominal aortic aneurysm. Lymph nodes: No retroperitoneal adenopathy. Urinary bladder: The urinary bladder appears somewhat distended at the time of scanning. Please correlate clinically. Reproductive: Prostate enlargement with transverse diameter of 4.6 cm. Correlation with PSA levels may be useful to help exclude prostate malignancy. Bones/joints: No significant acute finding. Soft tissues: No significant acute finding. CT/CT abdomen pelvis w con* [id number] IMPRESSION: 1. Findings compatible with a small bowel obstruction, see above details. 2. Associated gastric distention. 3. No free intraperitoneal air. 4. No findings to strongly suggest diverticulitis or colitis. 5. Prostate enlargement and urinary bladder wall distention, see above. 6. Small hiatal hernia. Suspected mucosal/wall thickening in the lower esophagus, see above. Possible gastroesophageal reflux. 7. Other findings discussed above.
--- NOTE | 2023-06-09 03:05 | ED_ITS ---
HPI - Abdominal Pain General: Chief Complaint: Abdominal Pain Stated Complaint: abdomen pain Time Seen by Provider: 06/09/23 02:50 Source: patient and family Mode of arrival: ambulatory Limitations: no limitations History of Present Illness: 52-year-old male who has a history of ALS he had been admitted here earlier this month for C. difficile he just finished his course of antibiotics states th at today after lunch she ate had a bowel movements been complaining of abdominal pain since then. He has had no diarrhea this evening but she states that his abdomen felt hard to touch and she was concerned. He does complain of diffuse pain denies any fever vomiting Associated Symptoms: Denies chills, diarrhea, dysuria, fever(s), nausea and vomiting Review of Systems Const: Denies: fever(s) or chills ENMT: Denies: throat pain or dental pain Card: Denies: chest pain Resp: Denies: dyspnea GI: Reports: abdominal pain; Denies: nausea, vomiting or diarrhea : Denies: dysuria Musc: Denies: neck pain or back pain Skin/Breast: Denies: rash Neuro: Denies: headache(s) PFSH ED PFSH: Medical History ALS (amyotrophic lateral sclerosis) Ulcerative (chronic) enterocolitis Surgical History History of esophageal surgery History of oral surgery Family History Denies family history of Diabetes Hypertension Social History Smoking and tobacco/nicotine status: never used tobacco/nicotine Alcohol intake: never Substance/Drug Use: never Physical Exam 2 Const: COMMON NORMALS: patient oriented x3 HENMT: COMMON NORMALS: normocephalic and atraumatic HEAD & SCALP: normocephalic and atraumatic Eye: COMMON NORMALS: conjunctivae normal CONJUNCTIVA: Yes conjunctivae normal Neck/C-Spine: COMMON NORMALS: full ROM and supple Chest: COMMONS NORMALS: normal inspection of the chest and normal palpation of entire chest wall Resp: COMMON NORMALS: normal respiratory effort Cardio: COMMON NORMALS: regular rate, regular rhythm and No murmurs present (Cardio) RATE: regular rate RHYTHM: regular rhythm GI: COMMON NORMALS: Normal to inspection, nondistended, normoactive bowel sounds present, Soft to palpation, non-tender and no masses PALPATION: Yes Soft to palpation Extremity: COMMON NORMALS: normal to inspection Neuro: COMMON NORMALS: patient oriented x3 and no focal motor deficits Psych: COMMON NORMALS: mental status grossly normal, Normal thought process present and cooperative THOUGHT PROCESS: Normal thought process present Skin: COMMON NORMALS: no rashes or lesions noted and no wounds GENERAL SKIN EXAM: no rashes or lesions noted Course Vital Signs: Vital signs: Vital Signs Temperature 97.7 F 06/09/23 02:55 Pulse Rate 105 H 06/09/23 02:55 Respiratory Rate 20 H 06/09/23 02:55 Blood Pressure 133/93 06/09/23 02:55 Pulse Oximetry 96 06/09/23 02:55 Oxygen Delivery Me thod Room Air 06/09/23 02:55 MDM - Abdominal Pain Medical Decision Making Patient presents here with abdominal pain CT does show a small bowel obstruction will place an NG tube up spoke to hospitalist Dr. Diaz and will admit at this time. Medical Records I reviewed the patient's medical records. Lab Data I reviewed the patient's lab results. 06/09/23 03:20 06/09/23 03:20 Labs/Radiology: Radiology Impressions Abdomen/Pelvis CT 06/09/23 03:00 IMPRESSION: 1. Findings compatible with a small bowel obstruction, see above details. 2. Associated gastric distention. 3. No free intraperitoneal air. 4. No findings to strongly suggest diverticulitis or colitis. 5. Prostate enlargement and urinary bladder wall distention, see above. 6. Small hiatal hernia. Suspected mucosal/wall thickening in the lower esophagus, see above. Possible gastroesophageal reflux. 7. Other findings discussed above. Laboratory Results WBC 14.18 10^3/uL (3.29-11.43) H 06/09/23 03:20 RBC 4.33 10^6/uL (3.85-5.65) 06/09/23 03:20 Hgb 13.60 g/dL (11.27-16.99) 06/09/23 03:20 Hct 42.7 % (37-53) 06/09/23 03:20 MCV 98.6 fl (82-101) 06/09/23 03:20 MCH 31.4 pg (27-33) 06/09/23 03:20 MCHC 31.9 g/dL (30-55) 06/09/23 03:20 RDW 15.3 % (12.1-15.1) H 06/09/23 03:20 Plt Count 363 10^3/cmm (157-399) 06/09/23 03:20 MPV 10.6 fL (7.4-10.4) H 06/09/23 03:20 Neut % (Auto) 89.3 % 06/09/23 03:20 Lymph % (Auto) 6.1 % 06/09/23 03:20 [place] % (Auto) 4.1 % 06/09/23 03:20 Eos % (Auto) 0.1 % 06/09/23 03:20 Baso % (Auto) 0.1 % 06/09/23 03:20 Neut # (Auto) 12.66 10^3/uL (1.8-7.7) H 06/09/23 03:20 Lymph # (Auto) 0.9 10^3/uL (0.8-4.8) 06/09/23 03:20 [place] # (Auto) 0.6 10^3/uL (0.2-0.9) 06/09/23 03:20 Eos # (Auto) 0.0 10^3/uL (0.0-0.8) 06/09/23 03:20 Baso # (Auto) 0.0 10^3/uL (0.0-0.1) 06/09/23 03:20 Nucleated RBC % (auto) 0 % 06/09/23 03:20 Nucleated RBCs # 0.0 /100WBC 06/09/23 03:20 Sodium 140 mmol/L (136-145) 06/09/23 03:20 Potassium 4.4 mmol/L (3.5-5.1) 06/09/23 03:20 Chloride 98 mmol/L (98-107) 06/09/23 03:20 Carbon Dioxide 29 mmol/L (22-29) 06/09/23 03:20 Anion Gap 17.4 (5-19) 06/09/23 03:20 BUN 14 mg/dL (6-20) 06/09/23 03:20 Creatinine 0.3 mg/dL (0.7-1.2) L 06/09/23 03:20 GFR Calculation 314.8 mL/min (90-130) H 06/09/23 03:20 Glucose 148 mg/dL (65-115) H 06/09/23 03:20 Calculated Osmolality 293 mOsm/kg (285-295) 06/09/23 03:20 Calcium 10.2 mg/dL (8.5-10.5) 06/09/23 03:20 Total Bilirubin 0.3 mg/dL (0.15-1.2) 06/09/23 03:20 AST 22 U/L (0-40) 06/09/23 03:20 ALT 26 U/L (0-41) 06/09/23 03:20 Alkaline Phosphatase 83 U/L (40-130) 06/09/23 03:20 Total Protein 7.7 g/dL (6.6-8.7) 06/09/23 03:20 Albumin 4.3 g/dL (3.5-5.2) 06/09/23 03:20 Globulin 3.4 g/dL (1.3-4.6) 06/09/23 03:20 Lipase 25 U/L (13-60) 06/09/23 03:20 All radiology interpretation(s) finalized by discharge Discharge Plan Discharge Patient Disposition: Admitted As Inpatient Clinical Impression: Small bowel obstruction Condition: Stable Prescriptions: No Action sertraline [Zoloft] 20 mg/mL concentrate 20 mg PO DAILY riluzole 50 mg Tablet 50 mg PO Q12H omeprazole-sodium bicarbonate 20-1,680 mg Packet 1 packet PO DAILY Entyvio 300 mg Recon Soln 300 mg IV DIRECTED Rx Instructions: every 8 weeks nortriptyline 10 mg Capsule 10 mg PO DAILY gabapentin 600 mg Tablet 600 mg PO BEDTIME loperamide 1 mg/7.5 mL Liquid 2 mg PO TID PRN (Reason: Diarrhea) Qty: 10 0RF Referrals: Chel Weinstein FNP [Primary Care Provider] - Coding Level of Care Code ED Decator Operator for [facility]
[2023-06-09] MEDS: sodium chloride 0.9% 1,000 ML 999 ML IV (03:14)
[2023-06-09] MEDS: morphine 4 mg/mL SDV 1 mL IVP (03:17)
[2023-06-09] MEDS: ondansetron 2 mg/ML SDV 2 mL 4 MG IVP (03:17)
[2023-06-09] MEDS: iohexol 350 mg/mL 500 mL Btl (per mL) IV (03:25)
[2023-06-09 03:26] LABS: Basophils % 0.1 %; Eosinophils % 0.1 %; Hematocrit 42.7 % (37-53); Lymphocytes # 0.9 10^3/uL (0.8-4.8); Lymphocytes % 6.1 %; Mean Corpuscular HGB Conc 31.9 g/dL (30-55); Mean Corpuscular Hemoglobin 31.4 pg (27-33); Mean Corpuscular Volume 98.6 fl (82-101); Mean Platelet Volume 10.6 fL (7.4-10.4); Monocytes # 0.6 10^3/uL (0.2-0.9); Monocytes % 4.1 %; Neutrophils # 12.66 10^3/uL (1.8-7.7); Neutrophils % 89.3 %; Nucleated Red Blood Cells % 0 %; Platelet Count 363 10^3/cmm (157-399); Red Blood Count 4.33 10^6/uL (3.85-5.65); Red Cell Distribution Width 15.3 % (12.1-15.1); White Blood Count 14.18 10^3/uL (3.29-11.43)
[2023-06-09 03:46] LABS: Alanine Aminotransferase 26 U/L (0-41); Albumin Level 4.3 g/dL (3.5-5.2); Alkaline Phosphatase 83 U/L (40-130); Anion Gap 17.4 (5-19); Aspartate Amino Transferase 22 U/L (0-40); Blood Urea Nitrogen 14 mg/dL (6-20); Calcium 10.2 mg/dL (8.5-10.5); Carbon Dioxide 29 mmol/L (22-29); Chloride 98 mmol/L (98-107); Globulin 3.4 g/dL (1.3-4.6); Glomerular Filtration Rate 314.8 mL/min (90-130); Glucose 148 mg/dL (65-115); Lipase 25 U/L (13-60); Osmolality Calculated 293 mOsm/kg (285-295); Potassium 4.4 mmol/L (3.5-5.1); Sodium 140 mmol/L (136-145); Total Bilirubin 0.3 mg/dL (0.15-1.2); Total Protein 7.7 g/dL (6.6-8.7)
[2023-06-09 05:25] LABS: Blood Urine 3+ (Negative); Glucose Urine UA Norm (Normal); Ketones Urine 1+ (Negative); Protein Urine Trace (Negative); Urine Appearance Cloudy (CLEAR); Urine Color Yellow (Yellow); pH Urine 7 (5-7)
[2023-06-09 05:26] LABS: Add Urine Culture? No; Add Urine Microscopic? YES; Amorphous Sediment Urine 3+ /hpf; Bacteria Urine TRACE /hpf; Bilirubin Urine Neg (Negative); Calcium Oxalate Crystals Urine 0-4 /hpf; Leukocyte Esterase Urine Negative (Negative); Nitrate Urine Negative (Negative); Squamous Epithelial Cell Urine 0-4 /hpf (0-5); Urobilinogen Urine Norm (Negative)
[2023-06-09] MEDS: morphine 4 mg/mL SDV 1 mL 2 MG IVP ×4 (06:31→22:28)
[2023-06-09] MEDS: dextrose 5%-sod chloride 0.9% 1,000 ML 75 ML IV ×2 (07:07→22:23)
--- NOTE | 2023-06-09 07:50 | P.HP_ITS ---
Providers/Chief Complaint Admitting Physician: Raymundo Diaz MD Primary Care Provider: MORENO Ferrara Chief Complaint: abdomen pain History of Present Illness Silvestre Espinosa is a 52 year old male with history of ALS, UC, wheelchair- bound,PEG tube feeding, was recently discharged from the hospital after management of C. difficile colitis, he was also put on steroids for inflammatory colitis, patient gets feeding via PEG tube, his last C. difficile regimen was 06/08. Patient is stating that after getting his feeding around 11 AM on 06/08 he started experiencing abdominal bloating and discomfort, he experienced loose stools, he has been uncomfortable increasing abdominal pain he has not vomited, endorsing nausea, no fever, his stools are always loose because of diet. last colonoscopy was roughly 3 years ago, Patient is on vedolizumab for ulcerative colitis, he has not experienced any flare in many years. Review of Systems Eyes: Denies: change in vision ENMT: Denies: throat pain Card: Denies: chest pain Resp: Reports: dyspnea GI: Reports: abdominal pain and nausea : Denies: flank pain Musc: Denies: neck pain Skin/Breast: Denies: new lesions Medications/Allergies Home Medications Medication Instructions Recorded Confirmed Last Taken Type nortriptyline 10 mg capsule 10 mg PO DAILY 04/24/20 05/21/23 03/21/23 History omeprazole 20 mg-sodium 1 packet PO DAILY 04/24/20 05/21/23 03/21/23 History bicarbonate 1,680 mg oral packet riluzole 50 mg tablet 50 mg PO Q12H 04/24/20 05/21/23 03/21/23 History vedolizumab 300 mg intravenous 300 mg IV DIRECTED 04/24/20 05/21/23 03/21/23 History solution (Entyvio) gabapentin 600 mg tablet 600 mg PO BEDTIME 11/29/22 05/21/23 03/21/23 History sertraline 20 mg/mL oral 20 mg PO DAILY 05/16/23 05/21/23 Unknown History concentrate (Zoloft) loperamide 1 mg/7.5 mL oral liquid 2 mg (15 mL) PO TID PRN Diarrhea 05/25/23 Unknown Rx #10 mL Allergies Allergy/AdvReac Type Severity Reaction Status Date / Time No Known Allergies Allergy Verified 05/16/23 12:45 PFSH Acute PFSH: Medical History ALS (amyotrophic lateral sclerosis) Ulcerative (chronic) enterocolitis Surgical History History of esophageal surgery History of oral surgery Family History Denies family history of Diabetes Hypertension Social History Smoking and tobacco/nicotine status: never used tobacco/nicotine Alcohol intake: never Substance/Drug Use: never Vitals/I&O/Wt Last Vital Signs Temp 98.1 F 06/09/23 06:42 Pulse 111 H 06/09/23 06:42 Resp 16 06/09/23 06:42 BP 136/93 06/09/23 06:42 Pulse Ox 98 06/09/23 06:42 O2 Del Method CPAP 06/09/23 06:42 06/08/23 06/09/23 06/09/23 22:59 06:59 14:59 Intake Total 1000 / 1000 Balance 1000 / 1000 Weight last 48 hrs Weight 57.606 kg Physical Exam Narrative: Patient is euvolemic Currently on CPAP No new focal deficit Muscle mass loss at the bedside Abdomen soft on palpation Bowel sounds sluggish but present S1, S2 Currently on CPAP Tachycardia Hemodynamically stable Patient is able to communicate Data 06/09/23 03:20 06/09/23 03:20 A&P Assessment and plan (1) Small bowel obstruction: (2) Hypoxia: (3) ALS (amyotrophic lateral sclerosis): Plan 53 male who was recently discharged from the hospital recently for any C. difficile p.o. vancomycin course, history of ulcerative colitis on Entyvio, he w as also taking Imodium which was recommended by high school chemistry teacher in [place] [facility] Place NG tube Start IV fluid N.p.o. Hold PEG tube feeding Conservative management for now Electrolyte imbalance Patient not vomiting As per the family if any intervention is needed they would prefer [facility] for now agreeable for conservative management Opioids IV Prostate enlargement noted on CT scan, patient does not take anything for BPH Patient is agreeable for intermittent catheterization if needed Patient uses CPAP to keep his PEEP because of weak diaphragm He does have a high school chemistry teacher in [place] Full code N.p.o. DVT prophylaxis Attestations Medical Necessity Statement*: With improvement as anticipated Diagnoses Small bowel obstruction K56.609 Hypoxia R09.02 ALS (amyotrophic lateral sclerosis) G12.21
--- NOTE | 2023-06-09 15:38 | XRR_ITS ---
PROCEDURE INFORMATION: Exam: XR Chest Exam date and time: 06/09/2023 4:42 PM Age: 52 years old Clinical indication: Device placement; Ng tube; Additional info: Ng placement TECHNIQUE: Imaging protocol: Radiologic exam of the chest. Views: 1 view. COMPARISON: CT angio chest w abd pel w con 05/20/2023 9:55 PM FINDINGS: Tubes, catheters and devices: Nasogastric tube tip is in the distal body of the stomach. Lungs: Visualized lung hernandez are clear. Apices are excluded from the field of view. Pleural spaces: Unremarkable. No pleural effusion. No pneumothorax. Heart/Mediastinum: Unremarkable. No cardiomegaly. Bones/joints: Unremarkable. Gastrointestinal tract: Nonobstructive bowel gas pattern. XR/XR chest 1V portable [id number] IMPRESSION: 1. Nasogastric tube tip is in the distal body of the stomach. 2. Visualized lung hernandez are clear. Apices are excluded from the field of view. 3. Nonobstructive bowel gas pattern.
--- NOTE | 2023-06-09 20:13 | PM.PN ---
Subjective Subjective: Abdominal distention, nausea, no flatus. Has not vomited. Vitals/I&O/Wt Last Vital Signs Temp 98.5 F 06/09/23 16:00 Pulse 107 H 06/09/23 16:00 Resp 16 06/09/23 16:03 BP 135/94 06/09/23 16:00 Pulse Ox 98 06/09/23 16:00 O2 Del Method High Flow Nasal Cannula 06/09/23 16:00 06/09/23 06/09/23 06/09/23 06:59 14:59 22:59 Intake Total 1000 / 1000 Output Total 450 / 450 Balance 1000 / 1000 -450 / -450 Weight last 48 hrs Weight 57.606 kg Physical Exam Narrative: In chair. High flow nasal cannula in place. Const: COMMON NORMALS: alert GENERAL APPEARANCE: cooperative ORIENTATION/CONSCIOUSNESS: Yes awake HENMT: COMMON NORMALS: oropharynx normal Neck/C-Spine: COMMON NORMALS: no JVD Resp: COMMON NORMALS: normal respiratory effort and clear to auscultation bilaterally AUSCULTATION: clear to auscultation bilaterally Cardio: COMMON NORMALS: no JVD, regular rhythm, S1 normal heart sound present, S2 normal heart sound present and No murmurs present (Cardio) RHYTHM: regular rhythm HEART SOUNDS: S1 normal heart sound present and S2 normal heart sound present GI: COMMON NORMALS: Soft to palpation AUSCULTATION: Yes Hypoactive bowel sounds present PALPATION: Yes Soft to palpation Extremity: COMMON NORMALS: no joint enlargement and no pedal edema Neuro: SENSORIUM/ORIENTATION: Yes alert Skin: COMMON NORMALS: no rashes or lesions noted GENERAL SKIN EXAM: no rashes or lesions noted Data 06/09/23 03:20 06/09/23 03:20 A&P Assessment and plan (1) Small bowel obstruction: (2) Hypoxia: (3) ALS (amyotrophic lateral sclerosis): Plan 53 male who was recently discharged from the hospital recently for any C. difficile p.o. vancomycin course, history of ulcerative colitis on Entyvio, he was also taking Imodium which was recommended by armored service technician in [facility] with mid to distal small bowel obstruction suspected. Initial NG insertion attempts unsuccessful, but eventually has had NGT placed, to LIS, so far 450 mL output. Continue NGT decompression, with risk of hypovolemia, hypotension, electrolyte abnormality, acid-base abnormality, monitor vital signs, recheck chemistry. Continue bowel rest, n.p.o., IV fluid support. Hold PEG tube feeding Conservative management for now. Antiemetics as needed. Pain medication as needed. In case needing any intervention would want to transfer to [place]. He does have a armored service technician in [place]. Reviewed vital signs, CBC, CMP, urinalysis, CT abdomen pelvis, chest x-ray. ER documentation reviewed. Discussed with hospice case manager. History of C. difficile earlier this month. Mild to moderate mucosal wall thickening involving lower esophagus incidentally noted. Esophagitis suspected, neoplasm less likely. Prostate enlargement noted on CT scan, patient does not take anything for BPH Patient is agreeable for intermittent catheterization if needed Patient uses CPAP to keep his PEEP because of weak diaphragm. Attestations Medical Necessity Statement*: Continue admission for assessment management of SBO. Diagnoses Small bowel obstruction K56.609 Hypoxia R09.02 ALS (amyotrophic lateral sclerosis) G12.21
[2023-06-09] MEDS: RILUZOLE 50 MG 50 EACH PO (22:06)
[2023-06-09] MEDS: SERTRALINE 20 MG/ML 20 EACH PO (22:07)
[2023-06-10] VITALS (8 sets, daily range): BP systolic 123–166; BP diastolic 77–105; PULSE 94–129; RESP 16–22; TEMP 36.4–38.1; O2SAT 90–98
[2023-06-10 05:59] LABS: Basophils % 0.1 %; Eosinophils % 0.2 %; Hematocrit 40.2 % (37-53); Lymphocytes # 0.4 10^3/uL (0.8-4.8); Lymphocytes % 2.7 %; Mean Corpuscular HGB Conc 30.3 g/dL (30-55); Mean Corpuscular Hemoglobin 31.4 pg (27-33); Mean Corpuscular Volume 103.6 fl (82-101); Mean Platelet Volume 10.8 fL (7.4-10.4); Monocytes # 0.7 10^3/uL (0.2-0.9); Monocytes % 4.3 %; Neutrophils # 14.18 10^3/uL (1.8-7.7); Neutrophils % 92.3 %; Nucleated Red Blood Cells % 0 %; Platelet Count 280 10^3/cmm (157-399); Red Blood Count 3.88 10^6/uL (3.85-5.65); Red Cell Distribution Width 15.1 % (12.1-15.1); White Blood Count 15.37 10^3/uL (3.29-11.43)
[2023-06-10 06:23] LABS: Anion Gap 13.2 (5-19); Blood Urea Nitrogen 9 mg/dL (6-20); Calcium 8.9 mg/dL (8.5-10.5); Carbon Dioxide 26 mmol/L (22-29); Chloride 106 mmol/L (98-107); Glomerular Filtration Rate 502.7 mL/min (90-130); Glucose 139 mg/dL (65-115); Magnesium 1.9 mg/dL (1.7-2.3); Osmolality Calculated 293 mOsm/kg (285-295); Potassium 4.2 mmol/L (3.5-5.1); Sodium 141 mmol/L (136-145)
[2023-06-10] MEDS: RILUZOLE 50 MG 50 EACH PO ×2 (10:59→21:34)
[2023-06-10] MEDS: pantoprazole 40 mg SDV IVP (11:00)
[2023-06-10] MEDS: dextrose 5%-sod chloride 0.9% 1,000 ML 75 ML IV (12:54)
[2023-06-10 13:45] LABS: Add Urine Microscopic? YES; Bilirubin Urine Neg (Negative); Blood Urine 2+ (Negative); Glucose Urine UA Norm (Normal); Ketones Urine 1+ (Negative); Leukocyte Esterase Urine Negative (Negative); Nitrate Urine Negative (Negative); Protein Urine Neg (Negative); Urine Appearance Clear (CLEAR); Urine Color Yellow (Yellow); Urobilinogen Urine Neg (Negative); pH Urine 5 (5-7)
[2023-06-10 13:46] LABS: Add Urine Culture? Yes; Bacteria Urine 1+ /hpf; Calcium Oxalate Crystals Urine 0-4 /hpf; Mucus Urine 2+ /hpf; Squamous Epithelial Cell Urine 0-4 /hpf (0-5); WBC Urine 0-4 /hpf (0-5)
[2023-06-10] MEDS: SERTRALINE 20 MG/ML 20 EACH PO (21:39)
[2023-06-10] MEDS: morphine 4 mg/mL SDV 1 mL 2 MG IVP (21:54)
[2023-06-10] MEDS: ondansetron 2 mg/ML SDV 2 mL 4 MG IVP (21:59)
[2023-06-10 22:12] LABS: Adenovirus Not Detected (NOT DETECT); Chlamydia Pneumoniae Not Detected (NOT DETECT); Coronavirus 229E,HKU1,NL63,OC4 Not Detected (NOT DETECT); Human Metapneumovirus Not Detected (NOT DETECT); Human Rhinovirus/Enterovirus Not Detected (NOT DETECT); Influenza A Not Detected (NOT DETECT); Influenza A H1 Not Detected (NOT DETECT); Influenza A H1-2009 Not Detected (NOT DETECT); Influenza A H3 Not Detected (NOT DETECT); Influenza B Not Detected (NOT DETECT); Mycoplasma Pneumoniae Not Detected (NOT DETECT); Parainfluenza Virus Type 1 Not Detected (NOT DETECT); Parainfluenza Virus Type 2 Not Detected (NOT DETECT); Parainfluenza Virus Type 3 Not Detected (NOT DETECT); Parainfluenza Virus Type 4 Not Detected (NOT DETECT); Respiratory Syncytial Virus A Not Detected (NOT DETECT); Respiratory Syncytial Virus B Not Detected (NOT DETECT); SARS-COV-2 Not Detected (NOT DETECT)
--- NOTE | 2023-06-10 22:14 | PM.PN ---
Subjective Subjective: this morning he was feeling slightly better. Distention of the abdomen with improvement. Not passing flatus. Having some nasal congestion and drainage. Vitals/I&O/Wt Last Vital Signs Temp 100.6 F H 06/10/23 20:00 Pulse 126 H 06/10/23 20:00 Resp 18 06/10/23 21:54 BP 123/77 06/10/23 20:00 Pulse Ox 96 06/10/23 20:00 O2 Del Method Room Air 06/10/23 20:00 06/10/23 06/10/23 06/10/23 06:59 14:59 22:59 Intake Total 1000 / 1000 Output Total 100 / 100 Balance 1000 / 1000 -100 / 900 Weight last 48 hrs Weight 57.606 kg Physical Exam Narrative: In chair. High flow nasal cannula in place. Const: COMMON NORMALS: alert GENERAL APPEARANCE: cooperative ORIENTATION/CONSCIOUSNESS: Yes awake HENMT: COMMON NORMALS: oropharynx normal Neck/C-Spine: COMMON NORMALS: no JVD Resp: COMMON NORMALS: normal respiratory effort and clear to auscultation bilaterally AUSCULTATION: clear to auscultation bilaterally Cardio: COMMON NORMALS: no JVD, regular rhythm, S1 normal heart sound present, S2 normal heart sound present and No murmurs present (Cardio) RHYTHM: regular rhythm HEART SOUNDS: S1 normal heart sound present and S2 normal heart sound present GI: COMMON NORMALS: Soft to palpation AUSCULTATION: Yes Hypoactive bowel sounds present PALPATION: Yes Soft to palpation OTHER: Abdomen less distended. Extremity: COMMON NORMALS: no joint enlargement and no pedal edema Neuro: SENSORIUM/ORIENTATION: Yes alert Skin: COMMON NORMALS: no rashes or lesions noted GENERAL SKIN EXAM: no rashes or lesions noted Data 06/10/23 05:41 06/10/23 05:41 A&P Assessment and plan (1) Small bowel obstruction: (2) Hypoxia: (3) ALS (amyotrophic lateral sclerosis): Plan 53 male who was recently discharged from the hospital recently for any C. difficile p.o. vancomycin course, history of ulcerative colitis on Entyvio, he was also taking Imodium which was recommended by automobile service station attendant in [place] [facility] with mid to distal small bowel obstruction suspected. With improvement in distention earlier in the day but no flatus. had a small BM last night. Subsequently Passing gas, having additional bowel movement. Is also bothered by NGT due to nasal congestion making it difficult for him to breathe and clear secretions, requested NGT to be removed. Trial of CLD. Continue gentle IV fluid support for now. Hold PEG tube feeding Conservative management for now. Antiemetics as needed. Pain medication as needed. In case needing any intervention would want to transfer to [place]. He does have a automobile service station attendant in [place]. Leukocytosis: suspected stress-induced with small bowel obstruction, however, additionally noted some nasal congestion and drainage. Discussed with him obtaining viral panel. Requested. Reviewed, noted negative. Reviewed chest x-ray, without obvious signs of pneumonia. Noted some degree of sinus tachycardia. Continue gentle IV hydration, possibly some hypovolemia with lack of oral intake, NG decompression. UA discussed with him with some WBC, requested culture. Some bladder distention, breast enlargement noted on CT, discussed with him. He denies any subjective urinary retention. Requested bladder scans, Afternoon scan showing 186 mL, repeat requested. Later in the evening noted spiking low-grade fever 100.6 Fahrenheit. Possibly urinary tract infection as above. Requested blood culture. check lactic acid with some worsening of SIRS criteria.Urine culture pending. Empirically will cover with Zosyn for now Given concern may be trying to progress to sepsis, follow-up urine culture. However, additionally had C. difficile earlier this month. With GI symptoms, currently with leukocytosis, fever, will resume on treatment with oral vancomycin. Reviewed vital signs, CBC, CMP, urinalysis, CT abdomen pelvis, chest x-ray. History of C. difficile earlier this month. Mild to moderate mucosal wall thickening involving lower esophagus incidentally noted. Esophagitis suspected, neoplasm less likely. PPI. Prostate enlargement noted on CT scan, patient does not take anything for BPH Patient is agreeable for intermittent catheterization if needed Patient uses CPAP to keep his PEEP because of weak diaphragm. Peripheral neuropathy and peripheral edema associated with ALS. Attestations Medical Necessity Statement*: Continue admission for assessment management of improving SBO, additional assessment due to worsening of SIRS, Possible relapse of C. difficile infection, possible UTI in room and with underlying ALS and associated complications. Diagnoses Small bowel obstruction K56.609 Hypoxia R09.02 ALS (amyotrophic lateral sclerosis) G12.21
[2023-06-10] MEDS: piperacillin-tazobactam 3.375 GM in sodium chloride 0.9% (plus) 50 ML IV (22:47)
[2023-06-11] VITALS (10 sets, daily range): BP systolic 111–132; BP diastolic 76–88; PULSE 81–127; RESP 16–19; TEMP 36.8–37.7; O2SAT 92–97
[2023-06-11] LABS: Lactate (Lactic Acid level) 1.1 mmol/L (0.5-2.2)
[2023-06-11] MEDS: dextrose 5%-sod chloride 0.9% 1,000 ML 75 ML IV ×2 (01:54→16:41)
[2023-06-11] MEDS: ondansetron 2 mg/ML SDV 2 mL 4 MG IVP ×2 (04:34→09:14)
[2023-06-11] MEDS: morphine 4 mg/mL SDV 1 mL 2 MG IVP ×3 (04:35→16:22)
[2023-06-11 05:07] LABS: Basophils % 0.2 %; Eosinophils % 0.3 %; Hematocrit 40.8 % (37-53); Lymphocytes # 0.3 10^3/uL (0.8-4.8); Lymphocytes % 2.5 %; Mean Corpuscular HGB Conc 30.9 g/dL (30-55); Mean Corpuscular Hemoglobin 31.1 pg (27-33); Mean Corpuscular Volume 100.7 fl (82-101); Mean Platelet Volume 10.7 fL (7.4-10.4); Monocytes # 0.6 10^3/uL (0.2-0.9); Monocytes % 4.5 %; Neutrophils # 12.61 10^3/uL (1.8-7.7); Neutrophils % 92.2 %; Nucleated Red Blood Cells % 0 %; Platelet Count 244 10^3/cmm (157-399); Red Blood Count 4.05 10^6/uL (3.85-5.65); Red Cell Distribution Width 14.9 % (12.1-15.1); White Blood Count 13.68 10^3/uL (3.29-11.43)
[2023-06-11] MEDS: piperacillin-tazobactam 3.375 GM in sodium chloride 0.9% (plus) 50 ML IV ×2 (05:27→16:40)
[2023-06-11 05:28] LABS: Alanine Aminotransferase 17 U/L (0-41); Albumin Level 3.5 g/dL (3.5-5.2); Alkaline Phosphatase 88 U/L (40-130); Anion Gap 13.7 (5-19); Aspartate Amino Transferase 15 U/L (0-40); Blood Urea Nitrogen 7 mg/dL (6-20); Calcium 9.3 mg/dL (8.5-10.5); Carbon Dioxide 27 mmol/L (22-29); Chloride 101 mmol/L (98-107); Globulin 3.2 g/dL (1.3-4.6); Glomerular Filtration Rate 314.8 mL/min (90-130); Glucose 139 mg/dL (65-115); Osmolality Calculated 286 mOsm/kg (285-295); Potassium 3.7 mmol/L (3.5-5.1); Sodium 138 mmol/L (136-145); Total Bilirubin 0.4 mg/dL (0.15-1.2); Total Protein 6.7 g/dL (6.6-8.7)
--- NOTE | 2023-06-11 10:28 | PM.PN ---
Vitals/I&O/Wt Last Vital Signs Temp 99.2 F 06/11/23 08:00 Pulse 81 06/11/23 08:00 Resp 19 H 06/11/23 08:00 BP 132/88 06/11/23 08:00 Pulse Ox 94 06/11/23 08:00 O2 Del Method High Flow Nasal Cannula 06/11/23 08:00 06/10/23 06/11/23 06/11/23 22:59 06:59 14:59 Intake Total 1024 Output Total 100 / 100 Balance -100 / 900 1024 Physical Exam Narrative: In chair. High flow nasal cannula in place. Const: COMMON NORMALS: alert GENERAL APPEARANCE: cooperative ORIENTATION/CONSCIOUSNESS: Yes awake HENMT: COMMON NORMALS: oropharynx normal Neck/C-Spine: COMMON NORMALS: no JVD Resp: COMMON NORMALS: normal respiratory effort and clear to auscultation bilaterally AUSCULTATION: clear to auscultation bilaterally Cardio: COMMON NORMALS: no JVD, regular rhythm, S1 normal heart sound present, S2 normal heart sound present and No murmurs present (Cardio) RHYTHM: regular rhythm HEART SOUNDS: S1 normal heart sound present and S2 normal heart sound present GI: COMMON NORMALS: Soft to palpation AUSCULTATION: Yes Hypoactive bowel sounds present PALPATION: Yes Soft to palpation OTHER: Abdomen less distended. Extremity: COMMON NORMALS: no joint enlargement and no pedal edema Neuro: SENSORIUM/ORIENTATION: Yes alert Skin: COMMON NORMALS: no rashes or lesions noted GENERAL SKIN EXAM: no rashes or lesions noted Data 06/11/23 04:59 06/11/23 04:59 Micro: Microbiology 06/10/23 13:12 Urine Culture - Preliminary Urine,Clean Catch 06/10/23 04:42 Urine Culture - Preliminary Urine,Clean Catch 06/10/23 23:26 Blood Culture - Preliminary Blood SPECIMEN COLLECTED 06/10/23 23:20 Blood Culture - Preliminary Blood SPECIMEN COLLECTED A&P Assessment and plan (1) Small bowel obstruction: (2) Hypoxia: (3) ALS (amyotrophic lateral sclerosis): Plan 53 male who was recently discharged from the hospital recently for any C. difficile p.o. vancomycin course, history of ulcerative colitis on Entyvio, he was also taking Imodium which was recommended by light armored vehicle officer in [place] [facility] with mid to distal small bowel obstruction suspected. Yesterday he had passed some flatus, requested to have NG tube removed before completion of trial of oral intake, was bothered due to nasal congestion, weak diaphragm, this morning is having some further obstructive symptoms, had some broth which she feels may have been too large amount, subsequent abdomen felt distended, with cramping, broadside to be drained by PEG tube. Discussed with him for now very cautious oral intake, sips, ice chips. Tiny amounts of liquids will monitor condition with regards to the partial obstruction. Continue gentle IV fluid support for now. Hold PEG tube feeding In case needing any intervention would want to transfer to [place]. He does have a light armored vehicle officer in [place]. Leukocytosis: Discussed with him persistent leukocytosis, some sinus tachycardia seen, last night low-grade fever. Discussed concern given he has just recently finished antibiotics for C. difficile, he states finished his treatment last week, given GI symptoms, leukocytosis, low-grade fever, concern is that he may have persistence of C. difficile infection. He is started on oral vancomycin. Discussed with him reason not to repeat C. difficile study given recent infection, stool studies will likely be uninformative and still positive. Additionally at that point cannot exclude that he does not have a UTI, although seems less likely based on UA, urine culture has been obtained and pending. He is having some nasal congestion, sinus drainage. For now he is started empirically on Zosyn given concern that he may progress to sepsis with persistent leukocytosis, sinus tachycardia, fever, although certainly discussed with him this is not ideal given his recent C. difficile infection and possible recurrence versus risk of recurrence. Hopefully antibiotics can be de-escalated depending on his condition and lab results. Spotcheck bladder scans to exclude urine retention. Reviewed respiratory viral panel, negative. Reviewed CBC, CMP, UA, urine culture so far without growth. History of C. difficile earlier this month. Concern for persistent infection. Mild to moderate mucosal wall thickening involving lower esophagus incidentally noted. Esophagitis suspected, neoplasm less likely. PPI. Prostate enlargement noted on CT scan, patient does not take anything for BPH Patient is agreeable for intermittent catheterization if needed Patient uses CPAP to keep his PEEP because of weak diaphragm. Peripheral neuropathy and peripheral edema associated with ALS. Attestations Medical Necessity Statement*: Continue admission for assessment management of SBO, persistent SIRS and gentleman with recent C. difficile infection, ALS. and High MDM includes number and complexity of problems actively addressed during encounter and described risk of complication, morbidity or mortality of management as documented Diagnoses Small bowel obstruction K56.609 Hypoxia R09.02 ALS (amyotrophic lateral sclerosis) G12.21
[2023-06-11] MEDS: RILUZOLE 50 MG 50 EACH PO ×2 (11:32→21:17)
[2023-06-11] MEDS: pantoprazole 40 mg SDV IVP (11:32)
[2023-06-11 11:57] LABS: Erythrocyte Sedimentation Rate 61 mm/hr (0-10)
[2023-06-11 12:10] LABS: C Reactive Protein 173.2 mg/L (0.0-4.9)
[2023-06-11] MEDS: vancomycin 100 mg/1 mL Oral Syringe 125 MG PO ×2 (12:35→19:44)
[2023-06-11] MEDS: metoclopramide 5 mg/mL SDV 2 mL IVP (16:22)
[2023-06-11] MEDS: SERTRALINE 20 MG/ML 20 EACH PO (21:20)
[2023-06-12] VITALS (8 sets, daily range): BP systolic 120–141; BP diastolic 80–90; PULSE 74–101; RESP 16–20; TEMP 36.3–36.8; O2SAT 92–99
[2023-06-12] MEDS: piperacillin-tazobactam 3.375 GM in sodium chloride 0.9% (plus) 50 ML IV ×2 (00:44→08:55)
[2023-06-12 05:38] LABS: Basophils % 0.6 %; Eosinophils # 0.1 10^3/uL (0.0-0.8); Eosinophils % 1.7 %; Hematocrit 38.2 % (37-53); Lymphocytes # 0.5 10^3/uL (0.8-4.8); Lymphocytes % 8.6 %; Mean Corpuscular HGB Conc 30.6 g/dL (30-55); Mean Corpuscular Hemoglobin 31.1 pg (27-33); Mean Corpuscular Volume 101.6 fl (82-101); Mean Platelet Volume 10.8 fL (7.4-10.4); Monocytes # 0.3 10^3/uL (0.2-0.9); Monocytes % 6.1 %; Neutrophils # 4.51 10^3/uL (1.8-7.7); Neutrophils % 82.8 %; Nucleated Red Blood Cells % 0 %; Platelet Count 204 10^3/cmm (157-399); Red Blood Count 3.76 10^6/uL (3.85-5.65); Red Cell Distribution Width 14.9 % (12.1-15.1); White Blood Count 5.44 10^3/uL (3.29-11.43)
[2023-06-12 06:16] LABS: Alanine Aminotransferase 14 U/L (0-41); Albumin Level 3.3 g/dL (3.5-5.2); Alkaline Phosphatase 83 U/L (40-130); Anion Gap 13.6 (5-19); Aspartate Amino Transferase 16 U/L (0-40); Blood Urea Nitrogen 10 mg/dL (6-20); Calcium 8.7 mg/dL (8.5-10.5); Carbon Dioxide 28 mmol/L (22-29); Chloride 105 mmol/L (98-107); Globulin 2.8 g/dL (1.3-4.6); Glomerular Filtration Rate 502.7 mL/min (90-130); Glucose 117 mg/dL (65-115); Osmolality Calculated 296 mOsm/kg (285-295); Potassium 3.6 mmol/L (3.5-5.1); Sodium 143 mmol/L (136-145); Total Bilirubin 0.3 mg/dL (0.15-1.2); Total Protein 6.1 g/dL (6.6-8.7)
[2023-06-12] MEDS: pantoprazole 40 mg SDV IVP (08:49)
[2023-06-12] MEDS: vancomycin 100 mg/1 mL Oral Syringe 125 MG PO ×4 (08:54→22:40)
[2023-06-12] MEDS: RILUZOLE 50 MG 50 EACH PO ×2 (08:54→22:40)
--- NOTE | 2023-06-12 12:41 | XRR_ITS ---
PROCEDURE INFORMATION: Exam: XR Abdomen Exam date and time: 06/12/2023 2:10 PM Age: 52 years old Clinical indication: Condition or disease; Intestinal condition; Obstruction; Prior surgery; Surgery date: 6+ months; Surgery type: Peg tubes; Additional info: Sbo TECHNIQUE: Imaging protocol: Radiologic exam of the abdomen. Views: 2 Views. Upright and supine views. COMPARISON: CT abdomen pelvis w con* [id number] 06/09/2023 3:24 AM FINDINGS: Lungs: Mild linear atelectasis at the lateral left lung base. Gastrointestinal tract: Gas fluid levels in mildly dilated loops of mid abdominal small bowel, mild persistent small bowel obstruction. No free air. Intraperitoneal space: See Gastrointestinal tract finding. Bones/joints: Unremarkable for age. XR/XR acute abdomen series [id number] IMPRESSION: Mild small bowel obstruction.
[2023-06-12] MEDS: ciprofloxacin 200 MG/100 ML PREMIX 100 MG IV (13:21)
[2023-06-12] MEDS: dextrose 5%-sod chloride 0.9% 1,000 ML 75 ML IV (13:21)
[2023-06-12] MEDS: metroNIDAZOLE IV 500 MG/100 ML PREMIX 100 MG IV ×2 (13:26→22:37)
--- NOTE | 2023-06-12 13:30 | PC.SOCIAL ---
PG 2 IMM Explained to pt Pg 2 IMM. No questions voiced. Provided pt a copy. Initialed, dated, & timed a copy & placed in chart.
--- NOTE | 2023-06-12 16:38 | PM.PN ---
Subjective Subjective: Hospital course, labs appreciated. Seen with at bedside. Patient sitting in chair. States abdominal cramps have improved. Denies any nausea, vomiting. Did have multiple soft bowel movements today. Passing flatus. Blood work appreciated for resolution of leukocytosis, CMP showing stable creatinine. Vitals/I&O/Wt Last Vital Signs Temp 97.9 F 06/12/23 12:00 Pulse 91 06/12/23 12:00 Resp 18 06/12/23 12:00 BP 131/90 06/12/23 12:00 Pulse Ox 96 06/12/23 12:00 O2 Del Method Room Air 06/12/23 12:00 06/12/23 06/12/23 06/12/23 06:59 14:59 22:59 Intake Total 50 / 1533.75 1706.25 / 1706.25 Balance 50 / 1533.75 1706.25 / 1706.25 Physical Exam Narrative: In chair. On room air. at bedside. Const: COMMON NORMALS: alert GENERAL APPEARANCE: cooperative ORIENTATION/CONSCIOUSNESS: Yes awake HENMT: COMMON NORMALS: oropharynx normal Neck/C-Spine: COMMON NORMALS: no JVD Resp: COMMON NORMALS: normal respiratory effort and clear to auscultation bilaterally AUSCULTATION: clear to auscultation bilaterally Cardio: COMMON NORMALS: no JVD, regular rhythm, S1 normal heart sound present, S2 normal heart sound present and No murmurs present (Cardio) RHYTHM: regular rhythm HEART SOUNDS: S1 normal heart sound present and S2 normal heart sound present GI: COMMON NORMALS: Soft to palpation AUSCULTATION: Yes Hypoactive bowel sounds present PALPATION: Yes Soft to palpation OTHER: Abdomen less distended. Extremity: COMMON NORMALS: no joint enlargement and no pedal edema Neuro: SENSORIUM/ORIENTATION: Yes alert Skin: COMMON NORMALS: no rashes or lesions noted GENERAL SKIN EXAM: no rashes or lesions noted Data 06/12/23 05:17 06/12/23 05:17 Micro: Microbiology 06/10/23 13:12 Urine Culture - Final Urine,Clean Catch 06/10/23 04:42 Urine Culture - Final Urine,Clean Catch 06/10/23 23:26 Blood Culture - Preliminary Blood NEGATIVE TO DATE 06/10/23 23:20 Blood Culture - Preliminary Blood NEGATIVE TO DATE A&P Assessment and plan (1) Small bowel obstruction: (2) Hypoxia: (3) ALS (amyotrophic lateral sclerosis): (4) C. difficile enteritis: (5) Diarrhea: (6) Ulcerative (chronic) enterocolitis: Plan 53 male who was recently discharged from the hospital recently for any C. difficile p.o. vancomycin course, history of ulcerative colitis on Entyvio, he was also taking Imodium which was recommended by lawnmower mechanic in [place]. Abdominal distention/nausea and vomiting on admission: In setting of small bowel obstruction and seen on CT scan on admission. Patient having multiple bowel movements along with passing flatus currently. Leukocytosis resolving. Abdominal cramps resolving. Plan for abdominal series x-ray. If no bowel obstruction on abdominal x-ray will start on home PEG tube feeds. If concerning for bowel obstruction will consult surgery for further evaluation and management. Continue with clear liquid diet for now. Concern for recent C. difficile colitis. Started on oral vancomycin yesterday and leukocytosis has resolved. For now continue with oral vancomycin 125 mg 4 times daily. concerned for initiation of Flagyl as per literature review by her. For now we will switch Zosyn to IV ciprofloxacin and Flagyl. Less concerns for exacerbation of ulcerative colitis. Hold off on steroids for now. Appreciate ESR and CRP done recently. Protonix OPD prophylaxis Clear liquid diet Heparin 5000 every 12 hourly for DVT prophylaxis. Discussed patient's health in detail with at bedside. We discussed there is a concern for either recurrence or continuation of recent serious infection most likely in setting of home use of Imodium. Discussed plan for possible discharge on oral vancomycin taper versus fidaxomicin. Also discussed that for now there is low concern for ulcerative colitis flare. ALS: Continue home medications. Attestations Medical Necessity Statement*: Requires further hospitalization for management of small bowel obstruction in setting of recent C. difficile colitis, ulcerative colitis in a patient with baseline ALS. Diagnoses Small bowel obstruction K56.609 Hypoxia R09.02 ALS (amyotrophic lateral sclerosis) G12.21 C. difficile enteritis A04.72 Diarrhea R19.7 Ulcerative (chronic) enterocolitis K51.00
[2023-06-12] MEDS: heparin 5,000 unit/mL INJ 1 mL 5000 UNIT SUBCUT (18:15)
--- NOTE | 2023-06-12 19:01 | P.CONIM_ITS ---
Providers/Reason For Consult Consulting Physician/Specialty*: General Surgery Reason for Consult*: SBO Attending Physician: Cole Contreras MD Primary Care Provider: MORENO Ferrara History of Present Illness History of Present Illness Silvestre Espinosa is a 52 year old male with ALS, history of PEG tube, ulcerative colitis and c diff who was admitted with c diff colitis and partial SBO. over hospital course he has showed improvement of symptoms and abdominal distension and pain but today a abdominal series showed findings concerning for persistent SBO and therefore I was consulted. Review of Systems General: Reports: 10 or more systems reviewed and unremarkable except in HPI a nd below Medications/Allergies Home Medications Medication Instructions Recorded Confirmed Last Taken Type nortriptyline 10 mg capsule 10 mg PO DAILY 04/24/20 06/09/23 06/08/23 History omeprazole 20 mg-sodium 1 packet PO DAILY 04/24/20 06/09/23 06/08/23 History bicarbonate 1,680 mg oral packet riluzole 50 mg tablet 50 mg PO Q12H 04/24/20 06/09/23 06/08/23 History vedolizumab 300 mg intravenous 300 mg IV DIRECTED 04/24/20 06/09/23 03/21/23 History solution (Entyvio) gabapentin 600 mg tablet 600 mg PO BEDTIME 11/29/22 06/09/23 06/08/23 History sertraline 20 mg/mL oral 20 mg PO DAILY 05/16/23 06/09/23 06/08/23 History concentrate (Zoloft) Allergies Allergy/AdvReac Type Severity Reaction Status Date / Time No Known Allergies Allergy Verified 05/16/23 12:45 Current Medications Generic Name Dose Route Start Last Admin Trade Name Freq PRN Reason Stop Dose Admin Heparin Sodium (Porcine) 5,000 unit 06/12/23 17:00 06/12/23 18:15 Heparin 5,000 Unit/Ml Inj 1 Ml SUBCUT 5,000 unit Q12H NED Administration Dextrose/Sodium Chloride 1,000 mls @ 75 mls/hr 06/09/23 06:30 06/12/23 13:21 Dextrose 5%-Sod Chloride 0.9% IV 75 mls/hr .[id number] NED Administration Ciprofloxacin/Dextrose 200 mg in 100 mls @ 100 mls/hr 06/12/23 12:45 06/12/23 14:22 Cipro IV Infused Q12H NED Infusion Protocol Metronidazole 500 mg in 100 mls @ 100 mls/hr 06/12/23 12:45 06/12/23 14:44 Flagyl Iv IV Infused Q8H NED Infusion Protocol Metoclopramide HCl 5 mg 06/11/23 13:10 06/11/23 16:22 Metoclopramide 5 Mg/Ml Sdv 2 Ml IVP 5 mg Q6H PRN Administration NAUSEA AND VOMITING Morphine Sulfate 2 mg 06/09/23 06:22 06/11/23 16:22 Morphine 4 Mg/Ml Sdv 1 Ml IVP 2 mg Q4H PRN Administration SEVERE PAIN Non-Formulary 500 mg 06/09/23 21:00 06/11/23 21:19 Medication ( PO 500 mg Gabapentin 250/5ml) BEDTIME NED Administration Non-Formulary Medication 50 mg 06/09/23 21:00 06/12/23 08:54 Riluzole PO 50 mg Q12H NED Administration Non-Formulary 0 each 06/11/23 17:24 06/12/23 18:57 Medication Mucinex PO 1 each Max Strength Liquid TID PRN Administration CONGESTION Non-Formulary 0 each 06/11/23 17:24 06/11/23 21:25 Medication Cold And PO 20 each Flue Nighttime BEDTIME PRN Administration COLD SYMPTOMS Ondansetron HCl 4 mg 06/09/23 06:23 06/11/23 09:14 Ondansetron 2 Mg/Ml Sdv 2 Ml IVP 4 mg Q6H PRN Administration NAUSEA AND VOMITING Pantoprazole Sodium 40 mg 06/10/23 09:25 06/12/23 08:49 Pantoprazole 40 Mg Sdv IVP 40 mg DAILY NDE Administration Vancomycin HCl 125 mg 06/11/23 13:00 06/12/23 18:57 Vancomycin 100 Mg/1 Ml Oral Syringe PO 125 mg QID NED Administration PFSH Acute PFSH: Medical History (Updated 06/12/23 @ 16:42 by Cole Contreras MD) ALS (amyotrophic lateral sclerosis) C. difficile enteritis Ulcerative (chronic) enterocolitis Surgical History History of esophageal surgery History of oral surgery Family History Denies family history of Diabetes Hypertension Social History Smoking and tobacco/nicotine status: never used tobacco/nicotine Alcohol intake: never Substance/Drug Use: never Vitals/I&O/Wt Last Vital Signs Temp 97.4 F L 06/12/23 16:00 Pulse 96 06/12/23 18:16 Resp 18 06/12/23 18:16 BP 130/83 06/12/23 16:00 Pulse Ox 95 06/12/23 18:16 O2 Del Method Room Air 06/12/23 18:16 06/12/23 06/12/23 06/12/23 06:59 14:59 22:59 Intake Total 50 / 1533.75 1706.25 / 1706.25 240 / 1946.25 Balance 50 / 1533.75 1706.25 / 1706.25 240 / 1946.25 Physical Exam Const: OTHER: patient is wheelchair bound GI: OTHER: abdomen is soft, mild distension, no significant tenderness, benign abdominal exam Data 06/12/23 05:17 06/12/23 05:17 Micro: Microbiology 06/10/23 13:12 Urine Culture - Final Urine,Clean Catch 06/10/23 04:42 Urine Culture - Final Urine,Clean Catch 06/10/23 23:26 Blood Culture - Preliminary Blood NEGATIVE TO DATE 06/10/23 23:20 Blood Culture - Preliminary Blood NEGATIVE TO DATE A&P Assessment and plan (1) C. difficile enteritis: (2) Small bowel obstruction: Plan after a complete history and physical examination the following is my assessment. patient SBO appears to be resolving as evidenced by multiple bowel movements and flatus. Enteral feeding trial should be attempted, if patient tolerates the trial he can be cleared for discharge from the surgical sta ndpoint. In the interim management for C diff should continue. in the case of recurrent symptoms of c diff or persistent infection a GI consultation should be considered. -OK for Enteral feed trial. -No surgical intervention is indicated at this time. Coding Level of Care Code Acute Code for [facility] Diagnoses C. difficile enteritis A04.72 Small bowel obstruction K56.609
[2023-06-12] MEDS: SERTRALINE 20 MG/ML 20 EACH PO (22:42)
[2023-06-13] VITALS (7 sets, daily range): BP systolic 109–153; BP diastolic 75–89; PULSE 78–107; RESP 17–18; TEMP 36.3–36.8; O2SAT 92–99
[2023-06-13] MEDS: ciprofloxacin 200 MG/100 ML PREMIX 100 MG IV ×2 (01:27→16:44)
[2023-06-13] MEDS: dextrose 5%-sod chloride 0.9% 1,000 ML 75 ML IV ×2 (04:10→21:32)
[2023-06-13] MEDS: metroNIDAZOLE IV 500 MG/100 ML PREMIX 100 MG IV ×2 (04:30→16:46)
[2023-06-13] MEDS: heparin 5,000 unit/mL INJ 1 mL 5000 UNIT SUBCUT ×2 (04:35→16:46)
[2023-06-13 08:28] LABS: Alanine Aminotransferase 16 U/L (0-41); Albumin Level 3.3 g/dL (3.5-5.2); Alkaline Phosphatase 78 U/L (40-130); Anion Gap 16.3 (5-19); Aspartate Amino Transferase 18 U/L (0-40); Blood Urea Nitrogen 6 mg/dL (6-20); Calcium 8.4 mg/dL (8.5-10.5); Carbon Dioxide 23 mmol/L (22-29); Chloride 107 mmol/L (98-107); Globulin 2.1 g/dL (1.3-4.6); Glomerular Filtration Rate 502.7 mL/min (90-130); Glucose 115 mg/dL (65-115); Osmolality Calculated 295 mOsm/kg (285-295); Potassium 3.3 mmol/L (3.5-5.1); Sodium 143 mmol/L (136-145); Total Bilirubin 0.2 mg/dL (0.15-1.2); Total Protein 5.4 g/dL (6.6-8.7)
[2023-06-13 09:19] LABS: Basophils % 0.8 %; Eosinophils # 0.2 10^3/uL (0.0-0.8); Eosinophils % 3.3 %; Hematocrit 35.1 % (37-53); Lymphocytes # 0.8 10^3/uL (0.8-4.8); Lymphocytes % 16.5 %; Mean Corpuscular HGB Conc 29.9 g/dL (30-55); Mean Corpuscular Volume 103.5 fl (82-101); Mean Platelet Volume 11.2 fL (7.4-10.4); Monocytes # 0.4 10^3/uL (0.2-0.9); Monocytes % 8.8 %; Neutrophils # 3.46 10^3/uL (1.8-7.7); Neutrophils % 70.4 %; Nucleated Red Blood Cells % 0 %; Platelet Count 203 10^3/cmm (157-399); Red Blood Count 3.39 10^6/uL (3.85-5.65); Red Cell Distribution Width 14.7 % (12.1-15.1); White Blood Count 4.91 10^3/uL (3.29-11.43)
[2023-06-13] MEDS: pantoprazole 40 mg SDV IVP (10:06)
[2023-06-13] MEDS: vancomycin 100 mg/1 mL Oral Syringe 125 MG PO (10:22)
[2023-06-13] MEDS: RILUZOLE 50 MG 50 EACH PO ×2 (10:22→21:32)
--- NOTE | 2023-06-13 10:38 | PC.NURSE ---
tube feeds resumed at 1030
--- NOTE | 2023-06-13 14:04 | P.PN_ITS ---
Subjective 2 Subjective: No acute events overnight. Today morning seen with family members at bedside. Patient sitting up in chair. States he does not any further abdominal cramps but still having soft to diarrhea bowel movements. Blood work appreciated. Has remained hemodynamically stable and afebrile. Vitals/I&O/Wt Last Vital Signs Temp 97.5 F L 06/13/23 08:00 Pulse 90 06/13/23 08:00 Resp 18 06/13/23 08:00 BP 136/77 06/13/23 08:00 Pulse Ox 95 06/13/23 08:00 O2 Del Method Room Air 06/13/23 08:00 06/12/23 06/13/23 06/13/23 22:59 06:59 14:59 Intake Total 480 / 2186.25 200 / 2386.25 240 / 240 Balance 480 / 2186.25 200 / 2386.25 240 / 240 Physical Exam 2 Narrative: In chair. On room air. Family at bedside. Const: COMMON NORMALS: alert GENERAL APPEARANCE: cooperative O RIENTATION/CONSCIOUSNESS: Yes awake HENMT: COMMON NORMALS: oropharynx normal Neck/C-Spine: COMMON NORMALS: no JVD Resp: COMMON NORMALS: normal respiratory effort and clear to auscultation bilaterally AUSCULTATION: clear to auscultation bilaterally Cardio: COMMON NORMALS: no JVD, regular rhythm, S1 normal heart sound present, S2 normal heart sound present and No murmurs present (Cardio) RHYTHM: regular rhythm HEART SOUNDS: S1 normal heart sound present and S2 normal heart sound present GI: COMMON NORMALS: Soft to palpation AUSCULTATION: Yes Hypoactive bowel sounds present PALPATION: Yes Soft to palpation OTHER: Abdomen less distended. Extremity: COMMON NORMALS: no joint enlargement and no pedal edema Neuro: SENSORIUM/ORIENTATION: Yes alert Skin: COMMON NORMALS: no rashes or lesions noted GENERAL SKIN EXAM: no rashes or lesions noted Data 06/13/23 06:10 06/13/23 06:10 Micro: Microbiology 06/10/23 13:12 Urine Culture - Final Urine,Clean Catch 06/10/23 04:42 Urine Culture - Final Urine,Clean Catch A&P Assessment and plan (1) Small bowel obstruction: (2) Hypoxia: (3) ALS (amyotrophic lateral sclerosis): (4) C. difficile enteritis: (5) Diarrhea: (6) Ulcerative (chronic) enterocolitis: Plan 53 male who was recently discharged from the hospital recently for any C. difficile p.o. vancomycin course, history of ulcerative colitis on Entyvio, he was also taking Imodium which was recommended by delivery coordinator in [place]. Abdominal distention/nausea and vomiting on admission: In setting of small bowel obstruction and seen on CT scan on admission. Patient having multiple bowel movements along with passing flatus currently. Leukocytosis resolved. Abdominal cramps resolving. Plan for abdominal series x-ray done on 06/12 consistent with small bowel obstruction. Appreciate surgical recommendations. For now we will go ahead with trial of PEG tube feeds. Continue with clear liquid diet for now. Concern for recent C. difficile colitis. Still continues to have multiple soft to diarrheal bowel movements. Increase dose of vancomycin to 500 4 times daily. If continues to have further diarrheal bowel movements we will plan for rectal vancomycin as there might be concern of bioavailability given mild small bowel obstruction. Continue with IV ciprofloxacin and Flagyl as per discussion with patient's on 06/12. Will recheck C. difficile toxin. Less concerns for exacerbation of ulcerative colitis. Hold off on steroids for now. Appreciate ESR and CRP done recently. Protonix OPD prophylaxis Clear liquid diet Heparin 5000 every 12 hourly for DVT prophylaxis. Discussed patient's health in detail with at bedside. We discussed there is a concern for either recurrence or continuation of recent serious infection most likely in setting of home use of Imodium. Discussed plan for possible discharge on oral vancomycin taper versus fidaxomicin. Also discussed that for now there is low concern for ulcerative colitis flare. ALS: Continue home medications. Attestations 2 Medical Necessity Statement*: Requires further hospitalization for management of small bowel obstruction leading to abdominal distention, C. difficile colitis in a patient with baseline ulcerative colitis and ALS Diagnoses Small bowel obstruction K56.609 Hypoxia R09.02 ALS (amyotrophic lateral sclerosis) G12.21 C. difficile enteritis A04.72 Diarrhea R19.7 Ulcerative (chronic) enterocolitis K51.00
--- NOTE | 2023-06-13 14:15 | P.PN_ITS ---
Subjective 2 Subjective: I evaluated patient at bedside today. He is doing okay, tolerating more liquid food through the PEG tube than in the previous days. He is still having several bowel movements and passing gas. I think his small bowel obstruction is almost completely resolved, He does still have symptoms concerning for persistent C. difficile, this is being managed by primary team. Vitals/I&O/Wt Last Vital Signs Temp 97.5 F L 06/13/23 08:00 Pulse 90 06/13/23 08:00 Resp 18 06/13/23 08:00 BP 136/77 06/13/23 08:00 Pulse Ox 95 06/13/23 08:00 O2 Del Method Room Air 06/13/23 08:00 06/12/23 06/13/23 06/13/23 22:59 06:59 14:59 Intake Total 480 / 2186.25 200 / 2386.25 240 / 240 Balance 480 / 2186.25 200 / 2386.25 240 / 240 Physical Exam 2 GI: OTHER: Abdomen is soft, minimally distended, nontender to palpation. Data 06/13/23 06:10 06/13/23 06:10 Micro: Microbiology 06/10/23 13:12 Urine Culture - Final Urine,Clean Catch 06/10/23 04:42 Urine Culture - Final Urine,Clean Catch A&P Assessment and plan (1) Ulcerative (chronic) enterocolitis: (2) C. difficile enteritis: (3) Small bowel obstruction: Plan Patient is progressing well, tolerating clear liquid diet. I think we can continue current diet until we ensure proper tolerance, there is no anticipated need for surgery at this time. Management of C. difficile colitis per primary team is appreciated. Once patient is ready for discharge he should follow-up with gastroenterology for management of his C. difficile colitis as well as history of inflammatory bowel disease. Attestations 2 Medical Necessity Statement*: Patient improving, likely will require 24 to 48 hours more of hospital stay for management of C. difficile colitis and to ensure p.o. tolerance. Coding Level of Care Code 15300 Diagnoses Ulcerative (chronic) enterocolitis K51.00 C. difficile enteritis A04.72 Small bowel obstruction K56.609
[2023-06-13] MEDS: ondansetron 2 mg/ML SDV 2 mL 4 MG IVP (17:42)
[2023-06-13] MEDS: morphine 4 mg/mL SDV 1 mL 2 MG IVP (17:43)
[2023-06-13] MEDS: vancomycin 100 mg/1 mL Oral Syringe 500 MG PO ×2 (18:35→21:34)
[2023-06-13] MEDS: SERTRALINE 20 MG/ML 20 EACH PO (21:32)
[2023-06-14] VITALS (7 sets, daily range): BP systolic 120–147; BP diastolic 69–92; PULSE 86–114; RESP 16–18; TEMP 36.1–37.1; O2SAT 86–98
[2023-06-14] MEDS: metroNIDAZOLE IV 500 MG/100 ML PREMIX 100 MG IV ×3 (00:10→15:29)
[2023-06-14] MEDS: ciprofloxacin 200 MG/100 ML PREMIX 100 MG IV ×2 (04:58→15:29)
[2023-06-14] MEDS: heparin 5,000 unit/mL INJ 1 mL 5000 UNIT SUBCUT ×2 (05:07→19:32)
[2023-06-14 06:25] LABS: Basophils % 0.4 %; Eosinophils # 0.1 10^3/uL (0.0-0.8); Hematocrit 32.7 % (37-53); Lymphocytes # 1.2 10^3/uL (0.8-4.8); Lymphocytes % 25.3 %; Mean Corpuscular HGB Conc 30.9 g/dL (30-55); Mean Corpuscular Hemoglobin 30.6 pg (27-33); Mean Corpuscular Volume 99.1 fl (82-101); Monocytes # 0.4 10^3/uL (0.2-0.9); Monocytes % 8.6 %; Neutrophils # 2.89 10^3/uL (1.8-7.7); Neutrophils % 62.5 %; Nucleated Red Blood Cells % 0 %; Platelet Count 230 10^3/cmm (157-399); Red Cell Distribution Width 14.7 % (12.1-15.1); White Blood Count 4.63 10^3/uL (3.29-11.43)
[2023-06-14 06:43] LABS: Alanine Aminotransferase 14 U/L (0-41); Alkaline Phosphatase 72 U/L (40-130); Aspartate Amino Transferase 13 U/L (0-40); Blood Urea Nitrogen 4 mg/dL (6-20); Calcium 8.5 mg/dL (8.5-10.5); Carbon Dioxide 28 mmol/L (22-29); Chloride 107 mmol/L (98-107); Globulin 2.4 g/dL (1.3-4.6); Glomerular Filtration Rate 502.7 mL/min (90-130); Glucose 121 mg/dL (65-115); Osmolality Calculated 296 mOsm/kg (285-295); Sodium 144 mmol/L (136-145); Total Bilirubin 0.2 mg/dL (0.15-1.2); Total Protein 5.4 g/dL (6.6-8.7)
[2023-06-14] MEDS: vancomycin 100 mg/1 mL Oral Syringe 500 MG PO ×4 (10:00→22:12)
[2023-06-14] MEDS: RILUZOLE 50 MG 50 EACH PO ×2 (10:00→22:14)
[2023-06-14] MEDS: pantoprazole 40 mg SDV IVP (10:00)
[2023-06-14] MEDS: dextrose 5%-sod chloride 0.9% 1,000 ML 75 ML IV (10:00)
--- NOTE | 2023-06-14 13:21 | P.PN_ITS ---
Subjective 2 Subjective: No acute events overnight. Patient states he is feeling a lot better. at bedside. Denies any further abdominal cramps. Denies any nausea, vomiting, headache. Able to tolerate PEG tube feeds. Amount of diarrheal bowel movements have decreased as well. Blood work appreciated. Vitals/I&O/Wt Last Vital Signs Temp 97.6 F 06/14/23 12:00 Pulse 114 H 06/14/23 12:00 Resp 18 06/14/23 12:00 BP 120/73 06/14/23 12:00 Pulse Ox 96 06/14/23 12:00 O2 Del Method CPAP 06/14/23 04:05 06/13/23 06/14/23 06/14/23 22:59 06:59 14:59 Intake Total 1440 / 1680 300 / 1979 1035 / 1035 Balance 1440 / 1680 300 / 1979 1035 / 1035 Physical Exam 2 Narrative: In chair. On room air. Family at bedside. Const: COMMON NORMALS: alert GENERAL APPEARANCE: cooperative O RIENTATION/CONSCIOUSNESS: Yes awake HENMT: COMMON NORMALS: oropharynx normal Neck/C-Spine: COMMON NORMALS: no JVD Resp: COMMON NORMALS: normal respiratory effort and clear to auscultation bilaterally AUSCULTATION: clear to auscultation bilaterally Cardio: COMMON NORMALS: no JVD, regular rhythm, S1 normal heart sound present, S2 normal heart sound present and No murmurs present (Cardio) RHYTHM: regular rhythm HEART SOUNDS: S1 normal heart sound present and S2 normal heart sound present GI: COMMON NORMALS: Soft to palpation AUSCULTATION: Yes Hypoactive bowel sounds present PALPATION: Yes Soft to palpation OTHER: Abdomen less distended. Extremity: COMMON NORMALS: no joint enlargement and no pedal edema Neuro: SENSORIUM/ORIENTATION: Yes alert Skin: COMMON NORMALS: no rashes or lesions noted GENERAL SKIN EXAM: no rashes or lesions noted Data 06/14/23 06:00 06/14/23 06:00 A&P Assessment and plan (1) Small bowel obstruction: (2) Hypoxia: (3) ALS (amyotrophic lateral sclerosis): (4) C. difficile enteritis: (5) Diarrhea: (6) Ulcerative (chronic) enterocolitis: Plan 53 male who was recently discharged from the hospital recently for any C. difficile p.o. vancomycin course, history of ulcerative colitis on Entyvio, he was also taking Imodium which was recommended by revenue field auditor in [place]. Abdominal distention/nausea and vomiting on admission: In setting of small bowel obstruction and seen on CT scan on admission. Patient having multiple bowel movements along with passing flatus currently. Leukocytosis resolved. Abdominal cramps resolving. Plan for abdominal series x-ray done on 06/12 consistent with small bowel obstruction. Appreciate surgical recommendations. For now we will go ahead with trial of PEG tube feeds. Continue with clear liquid diet for now. Concern for recent C. difficile colitis. Still continues to have multiple soft to diarrheal bowel movements. Increase dose of vancomycin to 500 4 times daily. If continues to have further diarrheal bowel movements we will plan for rectal vancomycin as there might be concern of bioavailability given mild small bowel obstruction. Continue with IV ciprofloxacin and Flagyl as per discussion with patient's on 06/12. Will recheck C. difficile toxin. Less concerns for exacerbation of ulcerative colitis. Hold off on steroids for now. Appreciate ESR and CRP done recently. Protonix OPD prophylaxis Clear liquid diet Heparin 5000 every 12 hourly for DVT prophylaxis. Discussed patient's health in detail with at bedside. We discussed there is a concern for either recurrence or continuation of recent serious infection most likely in setting of home use of Imodium. Discussed plan for possible discharge on oral vancomycin taper versus fidaxomicin. Also discussed that for now there is low concern for ulcerative colitis flare. ALS: Continue home medications. Plan for the day: Continue with oral vancomycin 500 mg 4 times daily. Continue with clear liquid diet. Have advised family to go slow on PEG tube feeds and eventually increase to his baseline PEG tube feeds within next 10 days. For now plan to continue PEG tube feeds at 25% for next 2 to 3 days and eventually increase to 50%. Plan to discharge on Dificid for 14 days. Discussed in detail with patient, patient's . They are requesting if medication can be given in suspension. Discussed in detail with outpatient pharmacy. Order has been sent in. They will review the availability and pricing. If patient continues to do well and tolerate diet plan to discharge within next 24 hours. Attestations 2 Medical Necessity Statement*: Requires further hospitalization for management of small bowel obstruction in a patient with C. difficile colitis, based on ulcerative colitis and ALS while PEG tube feeds are restarted and uptitrated gradually. Diagnoses Small bowel obstruction K56.609 Hypoxia R09.02 ALS (amyotrophic lateral sclerosis) G12.21 C. difficile enteritis A04.72 Diarrhea R19.7 Ulcerative (chronic) enterocolitis K51.00
[2023-06-14] MEDS: potassium chloride ER 20 mEq Tablet 40 MEQ PO (13:59)
--- NOTE | 2023-06-14 14:48 | PC.SOCIAL ---
IMM Update pg 2 of IMM updated and reviewed w/ patient and his . Copy provided and copy dated, initialed and placed in chart.
--- NOTE | 2023-06-14 19:40 | PC.NURSE ---
Dr. Contreras notified this nurse that he sent a prescription to the outpatient pharmacy for Dificid for Mr. Espinosa. This nurse contacted Dr. Contreras and let him know that I could see the order but he hadn't actually sent it to any pharmacy. Pharmacist Ruperto bartlett.
[2023-06-14] MEDS: SERTRALINE 20 MG/ML 20 EACH PO (22:13)
[2023-06-15] VITALS: BP 135/84; PULSE 100; RESP 16; TEMP 37; O2SAT 95
[2023-06-15] MEDS: metroNIDAZOLE IV 500 MG/100 ML PREMIX 100 MG IV ×2 (00:53→10:40)
[2023-06-15] MEDS: dextrose 5%-sod chloride 0.9% 1,000 ML 75 ML IV (00:53)
[2023-06-15 03:22] VITALS: BP 130/86; PULSE 94; RESP 16; TEMP 36.8; O2SAT 96
[2023-06-15] MEDS: ciprofloxacin 200 MG/100 ML PREMIX 100 MG IV (05:34)
[2023-06-15] MEDS: heparin 5,000 unit/mL INJ 1 mL 5000 UNIT SUBCUT (05:34)
[2023-06-15 07:24] VITALS: PULSE 90; RESP 18; O2SAT 96
[2023-06-15 08:00] VITALS: BP 183/83; PULSE 95; RESP 20; TEMP 36.5; O2SAT 98
[2023-06-15] MEDS: vancomycin 100 mg/1 mL Oral Syringe 500 MG PO (10:39)
[2023-06-15] MEDS: pantoprazole 40 mg SDV IVP (10:39)
[2023-06-15] MEDS: potassium chloride oral liq 20 mEq/15 mL UDC 40 MEQ PO (10:40)
[2023-06-15] MEDS: RILUZOLE 50 MG 50 EACH PO (10:41)
[2023-06-15 12:00] VITALS: BP 149/93; PULSE 102; RESP 16; TEMP 37; O2SAT 94
--- NOTE | 2023-06-15 12:31 | P.PN_ITS ---
Subjective 2 Subjective: 53-year-old male with ALS who presented with partial small bowel obstruction and C. difficile colitis. Patient has been progressing very well, no evidence of further bowel obstruction, he has been tolerating tube feeds and also having gas and bowel movements daily. He still has some diarrhea, this has been managed by medical team, and patient will leave the hospital on cdiff colitis medication. Vitals/I&O/Wt Last Vital Signs Temp 98.6 F 06/15/23 12:00 Pulse 102 H 06/15/23 12:00 Resp 16 06/15/23 12:00 BP 149/93 06/15/23 12:00 Pulse Ox 94 06/15/23 12:00 O2 Del Method Nasal Cannula 06/15/23 08:00 06/14/23 06/15/23 06/15/23 22:59 06:59 14:59 Intake Total 200 / 1335 1340 / 2675 1015 / 1015 Balance 200 / 1335 1340 / 2675 1015 / 1015 Physical Exam 2 GI: OTHER: Abdomen is soft, nontender, nondistended Data 06/14/23 06:00 06/14/23 06:00 A&P Assessment and plan (1) Ulcerative (chronic) enterocolitis: (2) C. difficile enteritis: (3) Small bowel obstruction: Plan Patient shows excellent progress from partial SBO, still some residual symptoms from C. difficile colitis. Outpatient management is being planned by medical team. There is no further surgical indication from the general surgery standpoint. Patient can follow-up as outpatient as needed. Outpatient follow- up with GI as recommended. Attestations 2 Medical Necessity Statement*: Patient is cleared for discharge from the general surgery standpoint. Coding Level of Care Code Acute Code for [facility] Diagnoses Ulcerative (chronic) enterocolitis K51.00 C. difficile enteritis A04.72 Small bowel obstruction K56.609
[2023-06-15 12:51] VITALS: BP 149/93; PULSE 102; RESP 16; TEMP 37; O2SAT 94
--- NOTE | 2023-06-15 17:55 | PM.DCS ---
Discharge Providers Date of Admission: 06/09/23 05:15 Date of Discharge: June 15, 2023 Attending Provider at Admission: Raymundo Diaz MD Attending Provider at Discharge: Cole Contreras MD Primary Care Provider: MORENO Ferrara Diagnoses at Discharge Discharge Diagnosis (1) Ulcerative (chronic) enterocolitis: Status: Acute (2) C. difficile enteritis: Status: Acute (3) Small bowel obstruction: Status: Acute Reason for Visit Reason for Visit: abdomen pain Brief History: History as per HPI: Silvestre Espinosa is a 52 year old male with history of ALS, UC, wheelchair-bound,PEG tube feeding, was recently discharged from the hospital after management of C. difficile colitis, he was also put on steroids for inflammatory colitis, patient gets feeding via PEG tube, his last C. difficile regimen was 06/08. Patient is stating that after getting his feeding around 11 AM on 06/08 he started experiencing abdominal bloating and discomfort, he experienced loose stools, he has been uncomfortable increasing abdominal pain he has not vomited, endorsing nausea, no fever, his stools are always loose because of diet. Hospital Course Hospital Course Patient was admitted to the hospital further evaluation and management of abdominal cramps in setting of baseline ulcerative colitis and ALS. On admission CT abdomen pelvis was done which is consistent with small bowel obstruction though patient continued to have leukocytosis along with episodes of diarrhea and abdominal cramping. He was restarted on oral vancomycin, was treated conservatively by keeping n.p.o. and nothing through PEG tube. IV hydration was maintained. Gradually after restarting oral vancomycin his leukocytosis, abdominal cramp resolved. Patient did have episode of hypoxia which was thought to be secondary to aspiration pneumonia for which she was started on IV antibiotics. Patient has finished course of antibiotics for aspiration pneumonitis and has been at his baseline oxygen supplementation. Repeat abdominal x-ray showed persistent small bowel obstruction for which surgery was consulted and he was started on trial of PEG tube feeds which she tolerated well. Patient has continued to improve on oral vancomycin with decrease in diarrheal bowel movements and resolution of abdominal cramps. Patient is at his baseline health. Resolution of abdominal cramps. Patient is at his baseline health. He has been discharged on oral Dificid liquid twice daily for next 14 days. Medication will be available to him tomorrow in between he will be on vancomycin liquid 500 mg 4 times daily. He has been advised to take 50% of his PEG tube feeds for next 3 to 4 days and then gradually advance to his regular regimen. Discharge plan were discussed in detail with the patient and both patient and patient's spouse verbalized understanding. All the questions were answered. Patient is to follow-up with ID as an outpatient. Physical Exam Narrative: In chair. On room air. Family at bedside. Const: COMMON NORMALS: alert GENERAL APPEARANCE: cooperative ORIENTATION/CONSCIOUSNESS: Yes awake HENMT: COMMON NORMALS: oropharynx normal Neck/C-Spine: COMMON NORMALS: no JVD Resp: COMMON NORMALS: normal respiratory effort and clear to auscultation bilaterally AUSCULTATION: clear to auscultation bilaterally Cardio: COMMON NORMALS: no JVD, regular rhythm, S1 normal heart sound present, S2 normal heart sound present and No murmurs present (Cardio) RHYTHM: regular rhythm HEART SOUNDS: S1 normal heart sound present and S2 normal heart sound present GI: COMMON NORMALS: Soft to palpation AUSCULTATION: Yes Hypoactive bowel sounds present PALPATION: Yes Soft to palpation OTHER: Abdomen less distended. Extremity: COMMON NORMALS: no joint enlargement and no pedal edema Neuro: SENSORIUM/ORIENTATION: Yes alert Skin: COMMON NORMALS: no rashes or lesions noted GENERAL SKIN EXAM: no rashes or lesions noted Discharge Data Studies Completed and Pending Completed Studies During Hospitalization Category Date Time Status CT abdomen pelvis w con* [id number] Stat Cat Scan 06/09/23 03:00 Completed CXRP [XR chest 1V portable [id number]] Stat Exams 06/09/23 15:38 Completed XR acute abdomen series [id number] Routine Exams 06/12/23 12:41 Completed Pending at discharge Category Date Time Status Blood Culture Stat Lab 06/10/23 23:26 Results Clostridium Difficile PCR Routine Lab 06/13/23 10:59 Ordered Radiology Impressions Abdomen/Pelvis CT 06/09/23 03:00 IMPRESSION: 1. Findings compatible with a small bowel obstruction, see above details. 2. Associated gastric distention. 3. No free intraperitoneal air. 4. No findings to strongly suggest diverticulitis or colitis. 5. Prostate enlargement and urinary bladder wall distention, see above. 6. Small hiatal hernia. Suspected mucosal/wall thickening in the lower esophagus, see above. Possible gastroesophageal reflux. 7. Other findings discussed above. ADDENDUM: 06/09/23 0519 Addendum: The following was not noted in the initial report: Probable transition point in the mid abdomen, just to the left of the midline, around axial images # [id number] series 5. This is probably best visualized on coronal image # 17, series 10. No mass or hernia in this region, so this obstruction may be secondary to adhesions. This report contains findings that may be critical to patient care. I discussed the critical exam findings by phone with ISSAC Griffin at 5:16 AM PRODUCTION GENERALIST, 06/09/2023. The findings were acknowledged and understood. Chest X-Ray 06/09/23 15:38 IMPRESSION: 1. Nasogastric tube tip is in the distal body of the stomach. 2. Visualized lung hernandez are clear. Apices are excluded from the field of view. 3. Nonobstructive bowel gas pattern. Chest/Abdomen X-ray 06/12/23 12:41 IMPRESSION: Mild small bowel obstruction. Laboratory Results WBC 4.63 10^3/uL (3.29-11.43) 06/14/23 06:00 RBC 3.30 10^6/uL (3.85-5.65) L 06/14/23 06:00 Hgb 10.10 g/dL (11.27-16.99) L 06/14/23 06:00 Hct 32.7 % (37-53) L 06/14/23 06:00 MCV 99.1 fl (82-101) 06/14/23 06:00 MCH 30.6 pg (27-33) 06/14/23 06:00 MCHC 30.9 g/dL (30-55) 06/14/23 06:00 RDW 14.7 % (12.1-15.1) 06/14/23 06:00 Plt Count 230 10^3/cmm (157-399) 06/14/23 06:00 MPV 11.0 fL (7.4-10.4) H 06/14/23 06:00 Neut % (Auto) 62.5 % 06/14/23 06:00 Lymph % (Auto) 25.3 % 06/14/23 06:00 [place] % (Auto) 8.6 % 06/14/23 06:00 Eos % (Auto) 3.0 % 06/14/23 06:00 Baso % (Auto) 0.4 % 06/14/23 06:00 Neut # (Auto) 2.89 10^3/uL (1.8-7.7) 06/14/23 06:00 Lymph # (Auto) 1.2 10^3/uL (0.8-4.8) 06/14/23 06:00 [place] # (Auto) 0.4 10^3/uL (0.2-0.9) 06/14/23 06:00 Eos # (Auto) 0.1 10^3/uL (0.0-0.8) 06/14/23 06:00 Baso # (Auto) 0.0 10^3/uL (0.0-0.1) 06/14/23 06:00 Nucleated RBC % (auto) 0 % 06/14/23 06:00 Nucleated RBCs # 0.0 /100WBC 06/14/23 06:00 ESR 61 mm/hr (0-10) H 06/11/23 04:59 Sodium 144 mmol/L (136-145) 06/14/23 06:00 Potassium 3.0 mmol/L (3.5-5.1) L 06/14/23 06:00 Chloride 107 mmol/L (98-107) 06/14/23 06:00 Carbon Dioxide 28 mmol/L (22-29) 06/14/23 06:00 Anion Gap 12.0 (5-19) 06/14/23 06:00 BUN 4 mg/dL (6-20) L 06/14/23 06:00 Creatinine 0.2 mg/dL (0.7-1.2) L 06/14/23 06:00 GFR Calculation 502.7 mL/min (90-130) H 06/14/23 06:00 Glucose 121 mg/dL (65-115) H 06/14/23 06:00 Calculated Osmolality 296 mOsm/kg (285-295) H 06/14/23 06:00 Lactate 1.1 mmol/L (0.5-2.2) 06/10/23 23:20 Calcium 8.5 mg/dL (8.5-10.5) 06/14/23 06:00 Magnesium 1.9 mg/dL (1.7-2.3) 06/10/23 05:41 Total Bilirubin 0.2 mg/dL (0.15-1.2) 06/14/23 06:00 AST 13 U/L (0-40) 06/14/23 06:00 ALT 14 U/L (0-41) 06/14/23 06:00 Alkaline Phosphatase 72 U/L (40-130) 06/14/23 06:00 C-Reactive Protein 173.2 mg/L (0.0-4.9) H 06/11/23 04:59 Total Protein 5.4 g/dL (6.6-8.7) L 06/14/23 06:00 Albumin 3.0 g/dL (3.5-5.2) L 06/14/23 06:00 Globulin 2.4 g/dL (1.3-4.6) 06/14/23 06:00 Lipase 25 U/L (13-60) 06/09/23 03:20 Urine Color Yellow (Yellow) 06/10/23 13:12 Urine Appearance Clear (CLEAR) 06/10/23 13:12 Urine pH 5 (5-7) 06/10/23 13:12 Ur Specific [place] 1.020 (1.005-1.030) 06/10/23 13:12 Urine Protein Neg (Negative) 06/10/23 13:12 Urine Glucose (UA) Norm (Normal) 06/10/23 13:12 Urine Ketones 1+ (Negative) H 06/10/23 13:12 Urine Blood 2+ (Negative) H 06/10/23 13:12 Urine Nitrate Negative (Negative) 06/10/23 13:12 Urine Bilirubin Neg (Negative) 06/10/23 13:12 Urine Urobilinogen Neg mg/dL (Negative) 06/10/23 13:12 Ur Leukocyte Esterase Negative (Negative) 06/10/23 13:12 Urine RBC 10-15 /hpf (0-2) H 06/10/23 13:12 Urine WBC 0-4 /hpf (0-5) H 06/10/23 13:12 Ur Squamous Epith Cells 0-4 /hpf (0-5) H 06/10/23 13:12 Calcium Oxalate Crystal 0-4 /hpf H 06/10/23 13:12 Amorphous Sediment Not Reportable 06/10/23 13:12 Urine Bacteria 1+ /hpf (NONE) H 06/10/23 13:12 Urine Mucus 2+ /hpf 06/10/23 13:12 Urine Yeast 1+ /hpf H 06/09/23 04:42 Nasal Influ A H1 2009 PCR Not detected (NOT DETECT) 06/10/23 15:47 Adenovirus (PCR) Not detected (NOT DETECT) 06/10/23 15:47 C. pneumoniae DNA (PCR) Not detected (NOT DETECT) 06/10/23 15:47 Coronavirus 229E (PCR) Not detected (NOT DETECT) 06/10/23 15:47 Human Metapneumovir PCR Not detected (NOT DETECT) 06/10/23 15:47 Influenza A (H1) PCR Not detected (NOT DETECT) 06/10/23 15:47 Influenza A (H3) PCR Not detected (NOT DETECT) 06/10/23 15:47 Influenza Type A (PCR) Not detected (NOT DETECT) 06/10/23 15:47 Influenza Type B (PCR) Not detected (NOT DETECT) 06/10/23 15:47 M. pneumoniae (PCR) Not detected (NOT DETECT) 06/10/23 15:47 Parainfluenza 1 (PCR) Not detected (NOT DETECT) 06/10/23 15:47 Parainfluenza 2 (PCR) Not detected (NOT DETECT) 06/10/23 15:47 Parainfluenza 3 (PCR) Not detected (NOT DETECT) 06/10/23 15:47 Parainfluenza 4 (PCR) Not detected (NOT DETECT) 06/10/23 15:47 RSV Type A (PCR) Not detected (NOT DETECT) 06/10/23 15:47 RSV Type B (PCR) Not detected (NOT DETECT) 06/10/23 15:47 Entero/Rhino (PCR) Not detected (NOT DETECT) 06/10/23 15:47 SARS-CoV-2 (PCR) Not detected (NOT DETECT) 06/10/23 15:47 Vitals Last Vital Signs Temp 98.6 F 06/15/23 12:51 Pulse 102 H 06/15/23 12:51 Resp 16 06/15/23 12:51 BP 149/93 06/15/23 12:51 Pulse Ox 94 06/15/23 12:51 O2 Del Method Nasal Cannula 06/15/23 08:00 Discharge Plan Discharge Patient Disposition: Home Condition: Stable Prescriptions: New Dificid 40 mg/mL suspension for reconstitution 200 mg PO Q12H 14 Days Qty: 140 0RF Dificid 200 mg tablet 200 mg PO Q12H 14 Days Qty: 28 0RF Continued sertraline [Zoloft] 20 mg/mL concentrate 20 mg PO DAILY riluzole 50 mg Tablet 50 mg PO Q12H omeprazole-sodium bicarbonate 20-1,680 mg Packet 1 packet PO DAILY Entyvio 300 mg Recon Soln 300 mg IV DIRECTED Rx Instructions: every 8 weeks nortriptyline 10 mg Capsule 10 mg PO DAILY gabapentin 600 mg Tablet 600 mg PO BEDTIME Discharge Orders: Discharge Order (Routine); Ordered 06/15/23 Ordered By: Cole Contreras Referrals: Chel Weinstein FNP [Primary Care Provider] - 06/20/23 10:00 am Infectious Disease Group [facility] [Provider Group] - 07/18/23 9:00 am Discharge Diet: Advance as tolerated and Resume prior tube feeds Discharge Activity: Resume usual activity and Increase activity as tolerated Patient Instructions: Bowel Obstruction, Clostridium Difficile, Diarrhea - Adult, Opioid Safety Activity Restrictions/Additional Instructions: oral Dificid liquid twice daily for next 14 days. Medication will be available to him tomorrow in between he will be on vancomycin liquid 500 mg 4 times daily. He has been advised to take 50% of his PEG tube feeds for next 3 to 4 days and then gradually advance to his regular regimen. Discharge Attestations Time Spent in Discharge Care*: greater than 30 min Specific Discharge Activities: educating patient, educating and/or supporting family/caregiver, discussing with pcp/other providers, discussing with ed case manager/social workers/dc planners, documenting/other paperwork and evaluating patient/reviewing data Status at Discharge: Cognitive status at discharge: cognitively intact, Behavioral status at discharge: cooperative, Quality Metrics Clinical Quality Measures [ No reported AMI, CVA or VTE this stay] Coding Level of Care Code 86648 Total time (in minutes) for Discharge: 60 Diagnoses Ulcerative (chronic) enterocolitis K51.00 C. difficile enteritis A04.72 Small bowel obstruction K56.609
== END 2023-06-15 12:52 | disposition home or self-care (01) | DRG 388 ==
LOC: ER 05:09 → MEDSURG 05:15
PROVIDERS: Internal Medicine; Admitting Provider Internal Medicine; Emergency Provider Emergency Medicine; PCP Nurse Practitioner; Visit Provider Student in an Organized Health Care Education/Training Program
DX: K56.600 Partial intestinal obstruction, unspecified as to cause (principal); J69.0 Pneumonitis due to inhalation of food and vomit; G12.21 Amyotrophic lateral sclerosis; K51.90 Ulcerative colitis, unspecified, without complications; A04.71 Enterocolitis due to Clostridium difficile, recurrent; Z99.3 Dependence on wheelchair; Z93.1 Gastrostomy status; G62.9 Polyneuropathy, unspecified; R09.02 Hypoxemia
CPT/HCPCS: 36415; 51798; 71045; 74022; 74177; 80048; 80053; 81001; 83605; 83690; 83735; 85025; 85651; 86140; 87040; 87086; 87486; 87581; 87633; 96372; 96374; 96375; 99285; C9113; J0744; J1644; J2060; J2270; J2405; J2543; J2765; J3490; J7030; J7042; Q9967

== ENCOUNTER → 2023-07-04 13:21 | Outpatient (BNVA) | payer OTHER, SELFPAY | PROVIDERS: PCP Nurse Practitioner; Visit Provider Student in an Organized Health Care Education/Training Program | DX: A04.71 Enterocolitis due to Clostridium difficile, recurrent | CPT/HCPCS: 87493; 99204 ==

== ENCOUNTER → 2023-07-11 10:18 | Day surgery (SDC) | payer OTHER, SELFPAY ==
[2023-07-11 10:11] VITALS: BP 110/77; PULSE 85; RESP 18; TEMP 36.4; O2SAT 93
[2023-07-11] MEDS: vedolizumab 300 MG in sodium chloride 0.9% 250 ML 500 MG IV (11:19)
[2023-07-11 11:29] LABS: Basophils # 0.1 10^3/uL (0.0-0.1); Basophils % 0.6 %; Eosinophils # 0.1 10^3/uL (0.0-0.8); Eosinophils % 0.6 %; Hematocrit 40.9 % (37-53); Lymphocytes # 1.3 10^3/uL (0.8-4.8); Lymphocytes % 14.4 %; Mean Corpuscular HGB Conc 31.5 g/dL (30-55); Mean Corpuscular Hemoglobin 31.3 pg (27-33); Mean Corpuscular Volume 99.3 fl (82-101); Mean Platelet Volume 11.1 fL (7.4-10.4); Monocytes # 0.5 10^3/uL (0.2-0.9); Monocytes % 5.4 %; Neutrophils # 7.04 10^3/uL (1.8-7.7); Neutrophils % 78.8 %; Nucleated Red Blood Cells % 0 %; Platelet Count 382 10^3/cmm (157-399); Red Blood Count 4.12 10^6/uL (3.85-5.65); Red Cell Distribution Width 15.7 % (12.1-15.1); White Blood Count 8.93 10^3/uL (3.29-11.43)
[2023-07-11 12:20] LABS: Alanine Aminotransferase 19 U/L (0-41); Alkaline Phosphatase 79 U/L (40-130); Anion Gap 11.3 (5-19); Aspartate Amino Transferase 24 U/L (0-40); Blood Urea Nitrogen 18 mg/dL (6-20); Calcium 9.3 mg/dL (8.5-10.5); Carbon Dioxide 31 mmol/L (22-29); Chloride 100 mmol/L (98-107); Globulin 3.3 g/dL (1.3-4.6); Glomerular Filtration Rate 314.8 mL/min (90-130); Glucose 90 mg/dL (65-115); Osmolality Calculated 287 mOsm/kg (285-295); Potassium 4.3 mmol/L (3.5-5.1); Sodium 138 mmol/L (136-145); Total Bilirubin 0.2 mg/dL (0.15-1.2); Total Protein 7.3 g/dL (6.6-8.7)
== END ==
PROVIDERS: PCP Nurse Practitioner; Visit Provider Nurse Practitioner
DX: K51.90 Ulcerative colitis, unspecified, without complications (principal)
CPT/HCPCS: 36415; 80053; 85025; 96365; J3380; J7050

== ENCOUNTER → 2023-07-25 15:13 | Outpatient (BNVA) | payer OTHER, SELFPAY | PROVIDERS: PCP Nurse Practitioner; Visit Provider Student in an Organized Health Care Education/Training Program | DX: S72.001A Fracture of unspecified part of neck of right femur, initial encounter for closed fracture (principal); X58.XXXA Exposure to other specified factors, initial encounter; M53.3 Sacrococcygeal disorders, not elsewhere classified | CPT/HCPCS: 73502; 99214 ==

== ENCOUNTER 2023-07-31 10:38 | Outpatient (CLI) | payer OTHER, SELFPAY ==
--- NOTE | 2023-07-31 11:00 | CT_ITS ---
WS: [id number] CT PELVIS NONCONTRAST HISTORY: FRACTURE TECHNIQUE: Contiguous imaging is performed of the pelvis without contrast. Coronal and sagittal refor mats are reviewed. All CT scans at [facility] use at least one of these dose optimization daron hniques: automated exposure control; mA and/or kV adjustment per patient size (includes targeted exam s where dose is matched to clinical indication); or iterative reconstruction. DLP: 205.62 mGy.cm COMPARISON: Radiograph 05/16/2023, 07/25/[address] 06/09/2023. Reidentified is a slightly impacted and nondisplaced RIGHT femoral neck fracture with impaction. No l ucency is identified. There is still a sclerotic line at the impaction site. No new fracture or displ acement. Sclerotic and lytic bone lesion RIGHT ilium with a maximum diameter of 11 mm is probably benign. Stab le. No sacral fracture or insufficiency fracture. Muscle atrophy is symmetric throughout the pelvis. No masses or bone destruction. Layering calcificat ion in the urinary bladder. Mild increased soft tissue over the RIGHT greater trochanter. IMPRESSION: 1. Nondisplaced slightly impacted RIGHT femoral neck fracture which has been previously described. S imilar to the study of 06/09/2023. 2. No new fractures. No sacral insufficiency fracture. 3. Increased soft tissue over the RIGHT greater trochanter is probably related to trochanteric bursi tis. This is new since the CT of 06/09/2023.
== END 2023-07-31 10:39 | disposition home or self-care (01) ==
LOC: RAD 10:38
PROVIDERS: PCP Nurse Practitioner; Visit Provider Student in an Organized Health Care Education/Training Program
DX: S72.001A Fracture of unspecified part of neck of right femur, initial encounter for closed fracture (principal); X58.XXXA Exposure to other specified factors, initial encounter
CPT/HCPCS: 72192

== ENCOUNTER 2023-09-07 13:43 | Outpatient (CLI) | payer OTHER, SELFPAY ==
--- NOTE | 2023-09-07 13:47 | CT_ITS ---
WS: [id number] CT chest wo con [id number] HISTORY: SCARRING VS LEFT LOWER LOBE PNEUMONIA TECHNIQUE: Axial imaging performed through the thorax. Coronal and sagittal reformats are submitted. All CT scans at [facility] use at least one of these dose optimization techniques: automated exposure control; mA and/or kV adjustment per patient size (includes targeted exams where dose is mat ched to clinical indication); or iterative reconstruction. CONTRAST: None DLP: 221.63 mGy.cm COMPARISON: 05/20/2023 Lungs and central airway: New area of dense consolidation with air bronchograms in the LEFT lower lob e. There is also mild volume loss and atelectasis. There is dense consolidation with surrounding mild hazy attenuation. Consolidation is new since 05/20/2023. There may be mucous plugging in segments of the LEFT lower lobe bronchi. There is some volume loss in the LEFT lower lobe suggesting partial atel ectasis. RIGHT lung is clear. Pleura: Normal. No pleural effusion. Heart and pericardium: Normal size heart with no pericardial effusion. Mediastinum and flavia: No mediastinum or hilar adenopathy. Vessels: Normal size aortic and pulmonary artery. No coronary artery calcifications. Chest wall and lower neck: No soft tissue masses. Upper abdomen: Normal. Osseous structures: No destructive process. IMPRESSION: 1. Dense consolidation with air bronchograms and mild volume loss in the LEFT lower lobe. Pneumonia with associated atelectasis is likely. There is increased soft tissue in segments of the LEFT lower l obe bronchi. Suspect bronchial obstruction. This may all be mucous plugging. Consider follow-up with pulmonology. 2. No adenopathy. No additional pneumonia. 3. The LEFT lower lobe consolidation is new since 05/20/2023.
== END 2023-09-07 13:44 | disposition home or self-care (01) ==
LOC: RAD 13:44
PROVIDERS: PCP Nurse Practitioner; Visit Provider Nurse Practitioner
DX: Z01.89 Encounter for other specified special examinations (principal)
CPT/HCPCS: 71250

== ENCOUNTER → 2023-09-19 09:23 | Outpatient (BNVA) | payer OTHER, SELFPAY | PROVIDERS: PCP Nurse Practitioner; Visit Provider Anesthesiology Pain Medicine | DX: M54.9 Dorsalgia, unspecified (principal); M53.3 Sacrococcygeal disorders, not elsewhere classified; G12.21 Amyotrophic lateral sclerosis | CPT/HCPCS: 99204 ==

== ENCOUNTER 2023-09-19 11:56 | Oncology outpatient (recurring) (ONCR) | payer OTHER, SELFPAY ==
[2023-09-19] MEDS: vedolizumab 300 MG in sodium chloride 0.9% 250 ML 500 MG IV (13:38)
== END 2023-10-15 23:59 | disposition home or self-care (01) ==
PROVIDERS: PCP Nurse Practitioner; Visit Provider Nurse Practitioner
DX: K51.90 Ulcerative colitis, unspecified, without complications (principal); M53.3 Sacrococcygeal disorders, not elsewhere classified; M54.9 Dorsalgia, unspecified; G12.21 Amyotrophic lateral sclerosis
CPT/HCPCS: 96413; 99204; J3380; J7050

== ENCOUNTER 2023-09-28 14:01 | Emergency (ER) | payer OTHER, SELFPAY ==
--- NOTE | 2023-09-28 14:06 | XRR_ITS ---
PROCEDURE INFORMATION: Exam: XR Chest Exam date and time: 09/28/2023 2:25 PM Age: 53 years old Clinical indication: Cough TECHNIQUE: Imaging protocol: Radiologic exam of the chest. Views: 1 view. COMPARISON: Chest x-ray September 05, 2023 at 11:42 a.m. FINDINGS: Lungs: Decreased pneumonia and atelectasis in the left lung base. Unchanged bilateral apical scarring. Otherwise, unremarkable. Pleural spaces: Unremarkable. No pleural effusion. No pneumothorax. Heart/Mediastinum: Unremarkable. No cardiomegaly. Bones/joints: Unremarkable. XR/XR chest 1V portable [id number] IMPRESSION: Decreased pneumonia and atelectasis in the left lung base.
[2023-09-28 14:09] VITALS: BP 99/67; PULSE 106; RESP 18; TEMP 36.8; O2SAT 96; BMI 16.9
--- NOTE | 2023-09-28 14:45 | W.ED.FEVER ---
HPI - Fever General: Chief Complaint: Fever Stated Complaint: fever, cough Time Seen by Provider: 09/28/23 14:44 History of Present Illness: Patient was diagnosed with pneumonia last month. Patient was treated with Augmentin and vancomycin due to history of C. difficile. Patient comes in today due to some fever at nighttime for the last 2 days, and some left lower chest wall pain. Patient has a history of ALS. Patient is alert and oriented. Patient is nontoxic in appearance. Patient was told he needed to be followed by a computing services director due to some abnormalities noted on a CT scan last month. Review of Systems General: Reports: 10 or more systems reviewed and unremarkable except in HPI and below Const: Reports: fever(s) Resp: Reports: pain on inspiration [facility] ED PFSH: Medical History C. difficile enteritis Ulcerative (chronic) enterocolitis ALS (amyotrophic lateral sclerosis) Surgical History History of oral surgery History of esophageal surgery Family History Denies family history of Diabetes Hypertension Social History Smoking and tobacco/nicotine status: never used tobacco/nicotine Alcohol intake: never Substance/Drug Use: never Physical Exam Const: COMMON NORMALS: alert HENMT: COMMON NORMALS: normocephalic HEAD & SCALP: normocephalic Neck/C-Spine: COMMON NORMALS: full ROM Resp: COMMON NORMALS: normal respiratory effort AUSCULTATION: diminished lung sounds Cardio: COMMON NORMALS: regular rate and regular rhythm RATE: regular rate RHYTHM: regular rhythm GI: COMMON NORMALS: non-tender Extremity: NARRATIVE EXTREMITY EXAM: Generalized muscle atrophy Neuro: SENSORIUM/ORIENTATION: Yes alert Skin: COMMON NORMALS: turgor normal GENERAL SKIN EXAM: turgor normal Course Vital Signs: Vital signs: Vital Signs Temperature 98.2 F 09/28/23 14:09 Pulse Rate 106 H 09/28/23 14:09 Respiratory Rate 18 09/28/23 14:09 Blood Pressure 99/67 09/28/23 14:09 Pulse Oximetry 96 09/28/23 14:09 MDM - Fever Medical Decision Making 53-year-old male patient comes in today for complaints of pain with inspiration in the left lower lung, and fever at night. Patient had pneumonia last month it was treated with outpatient Augmentin and vancomycin. Patient appears nontoxic. Patient skin is warm and dry. Lungs are decreased in the bases. Differential diagnosis includes but not limited to viral syndrome, pneumonia, respiratory failure, anxiety about health. Chest x-ray showed improving pneumonia to the right lower lung. Patient's white count was 12.35, CMP was unremarkable. Reviewed exam with patient with recommendations for treatment of fever with Augmentin due to patient's discomfort and increased coughing and history of recent pneumonia. Family wanted to wait and see if patient continue to run a fever tonight and will start antibiotic if he ran a fever tonight greater than 100.4. I have talked with Dr. Keene regarding vancomycin prophylaxis with use of antibiotic. She at this time did not recommend it unless patient was having symptomatic's C. difficile. Recommend follow-up with pulmonology for further evaluation regarding abnormal CT in August. Recommend follow-up with infectious disease, Dr. Keene, for recurrent temperatures. Family reports understanding agreed to plan. Lab Data 09/28/23 15:16 09/28/23 15:16 Radiology Impressions Chest X-Ray 09/28/23 14:06 IMPRESSION: Decreased pneumonia and atelectasis in the left lung base. Laboratory Results WBC 12.35 10^3/uL (3.29-11.43) H 09/28/23 15:16 RBC 4.20 10^6/uL (3.85-5.65) 09/28/23 15:16 Hgb 12.80 g/dL (11.27-16.99) 09/28/23 15:16 Hct 40.8 % (37-53) 09/28/23 15:16 MCV 97.1 fl (82-101) 09/28/23 15:16 MCH 30.5 pg (27-33) 09/28/23 15:16 MCHC 31.4 g/dL (30-55) 09/28/23 15:16 RDW 14.2 % (12.1-15.1) 09/28/23 15:16 Plt Count 458 10^3/cmm (157-399) H 09/28/23 15:16 MPV 11.1 fL (7.4-10.4) H 09/28/23 15:16 Neut % (Auto) 81.5 % 09/28/23 15:16 Lymph % (Auto) 11.5 % 09/28/23 15:16 Cross % (Auto) 6.1 % 09/28/23 15:16 Eos % (Auto) 0.4 % 09/28/23 15:16 Baso % (Auto) 0.3 % 09/28/23 15:16 Neut # (Auto) 10.06 10^3/uL (1.8-7.7) H 09/28/23 15:16 Lymph # (Auto) 1.4 10^3/uL (0.8-4.8) 09/28/23 15:16 Cross # (Auto) 0.8 10^3/uL (0.2-0.9) 09/28/23 15:16 Eos # (Auto) 0.1 10^3/uL (0.0-0.8) 09/28/23 15:16 Baso # (Auto) 0.0 10^3/uL (0.0-0.1) 09/28/23 15:16 Nucleated RBC % (auto) 0 % 09/28/23 15:16 Nucleated RBCs # 0.0 /100WBC 09/28/23 15:16 Sodium 140 mmol/L (136-145) 09/28/23 15:16 Potassium 4.5 mmol/L (3.5-5.1) 09/28/23 15:16 Chloride 100 mmol/L (98-107) 09/28/23 15:16 Carbon Dioxide 28 mmol/L (22-29) 09/28/23 15:16 Anion Gap 16.5 (5-19) 09/28/23 15:16 BUN 15 mg/dL (6-20) 09/28/23 15:16 Creatinine 0.2 mg/dL (0.7-1.2) L 09/28/23 15:16 GFR Calculation 500.7 mL/min (90-130) H 09/28/23 15:16 Glucose 89 mg/dL (65-115) 09/28/23 15:16 Calculated Osmolality 290 mOsm/kg (285-295) 09/28/23 15:16 Calcium 9.4 mg/dL (8.5-10.5) 09/28/23 15:16 Total Bilirubin 0.2 mg/dL (0.15-1.2) 09/28/23 15:16 AST 23 U/L (0-40) 09/28/23 15:16 ALT 23 U/L (0-41) 09/28/23 15:16 Alkaline Phosphatase 101 U/L (40-130) 09/28/23 15:16 C-Reactive Protein 56.6 mg/L (0.0-4.9) H 09/28/23 15:16 Total Protein 7.7 g/dL (6.6-8.7) 09/28/23 15:16 Albumin 4.1 g/dL (3.5-5.2) 09/28/23 15:16 Globulin 3.6 g/dL (1.3-4.6) 09/28/23 15:16 Influenza Type A Ag negative (Negative) 09/28/23 15:17 Influenza Type B Ag negative (Negative) 09/28/23 15:17 SARS-CoV-2 Ag (Rapid) negative (Negative) 09/28/23 15:17 All radiology interpretation(s) finalized by discharge Discharge Plan Discharge Patient Disposition: Home Clinical Impression: Pneumonia Qualifiers: Pneumonia type: due to unspecified organism Laterality: left Lung location: lower lobe of lung Qualified Code(s): J18.9 - Pneumonia, unspecified organism Condition: Stable Prescriptions: New amoxicillin-pot clavulanate 400-57 mg/5 mL suspension for reconstitution 12 ml PO BID 7 Days Qty: 168 0RF No Action sertraline [Zoloft] 20 mg/mL concentrate 20 mg PO DAILY Dificid 200 mg tablet 200 mg PO BID 10 Days Qty: 20 0RF riluzole 50 mg Tablet 50 mg PO Q12H omeprazole-sodium bicarbonate 20-1,680 mg Packet 1 packet PO DAILY Entyvio 300 mg Recon Soln 300 mg IV DIRECTED Rx Instructions: every 8 weeks nortriptyline 10 mg Capsule 10 mg PO DAILY gabapentin 600 mg Tablet 600 mg PO BEDTIME Discharge Orders: Discharge ED (Routine); Ordered 09/28/23 Ordered By: Marv Stephenson Referrals: Chel Weinstein, [employer] [Primary Care Provider] - Discharge Diet: Usual diet Discharge Activity: Increase activity as tolerated Patient Instructions: Pneumonia (ED) Activity Restrictions/Additional Instructions: Drink plenty water and fluids. Monitor for fever. Take antibiotics as directed for increased fever. Follow-up with primary care as needed. Case management will contact you regarding follow-up with pulmonology, and Dr. Keene, infectious disease. Coding Level of Care Code ED Latent Fingerprint Examiner for Clary Yo
[2023-09-28 16:13] LABS: Influenza A by IFA negative (Negative); Influenza B by IFA negative (Negative); SARS Covid-2 Antigen negative (Negative)
[2023-09-28 16:19] LABS: Basophils % 0.3 %; Eosinophils # 0.1 10^3/uL (0.0-0.8); Eosinophils % 0.4 %; Hematocrit 40.8 % (37-53); Lymphocytes # 1.4 10^3/uL (0.8-4.8); Lymphocytes % 11.5 %; Mean Corpuscular HGB Conc 31.4 g/dL (30-55); Mean Corpuscular Hemoglobin 30.5 pg (27-33); Mean Corpuscular Volume 97.1 fl (82-101); Mean Platelet Volume 11.1 fL (7.4-10.4); Monocytes # 0.8 10^3/uL (0.2-0.9); Monocytes % 6.1 %; Neutrophils # 10.06 10^3/uL (1.8-7.7); Neutrophils % 81.5 %; Nucleated Red Blood Cells % 0 %; Platelet Count 458 10^3/cmm (157-399); Red Cell Distribution Width 14.2 % (12.1-15.1); White Blood Count 12.35 10^3/uL (3.29-11.43)
[2023-09-28 16:38] LABS: Alanine Aminotransferase 23 U/L (0-41); Albumin Level 4.1 g/dL (3.5-5.2); Alkaline Phosphatase 101 U/L (40-130); Anion Gap 16.5 (5-19); Aspartate Amino Transferase 23 U/L (0-40); Blood Urea Nitrogen 15 mg/dL (6-20); C Reactive Protein 56.6 mg/L (0.0-4.9); Calcium 9.4 mg/dL (8.5-10.5); Carbon Dioxide 28 mmol/L (22-29); Chloride 100 mmol/L (98-107); Creatinine Clr Calc Pharmacy 315.1515; Globulin 3.6 g/dL (1.3-4.6); Glomerular Filtration Rate 500.7 mL/min (90-130); Glucose 89 mg/dL (65-115); Osmolality Calculated 290 mOsm/kg (285-295); Potassium 4.5 mmol/L (3.5-5.1); Sodium 140 mmol/L (136-145); Total Bilirubin 0.2 mg/dL (0.15-1.2); Total Protein 7.7 g/dL (6.6-8.7)
[2023-09-28 17:21] VITALS: RESP 18; O2SAT 96
--- NOTE | 2023-09-29 01:04 | DCPLANNER ---
Message sent to infection control and pulmonology
--- NOTE | 2023-09-29 01:54 | DCPLANNER ---
Message sent to pul. abnormal ct scan
== END 2023-09-28 17:22 | disposition home or self-care (01) ==
PROVIDERS: Emergency Medicine; Emergency Provider Nurse Practitioner Family; PCP Nurse Practitioner
DX: J18.9 Pneumonia, unspecified organism (principal); Z11.52 Encounter for screening for COVID-19; G12.21 Amyotrophic lateral sclerosis
CPT/HCPCS: 36415; 71045; 80053; 85025; 86140; 87426; 87804; 99284

== ENCOUNTER 2023-10-16 11:44 | Inpatient (IN) | payer OTHER, SELFPAY ==
[2023-10-16] VITALS (24 sets, daily range): BP systolic 88–114; BP diastolic 66–79; PULSE 96–112; RESP 17–56; TEMP 36.6–37.2; O2SAT 85–100; BMI 16.7
--- NOTE | 2023-10-16 11:48 | XRR_ITS ---
PROCEDURE INFORMATION: Exam: XR Chest Exam date and time: 10/16/2023 12:07 PM Age: 53 years old Clinical indication: Cough; Prior surgery; Surgery date: 6+ months; Surgery type: Esophagus TECHNIQUE: Imaging protocol: Radiologic exam of the chest. Views: 1 view. COMPARISON: CR XR chest 1V portable [id number] 09/28/2023 2:25 PM FINDINGS: Lungs: Left lower lobe infiltrate. Pleural spaces: Unremarkable. No pleural effusion. No pneumothorax. Heart/Mediastinum: Unremarkable. No cardiomegaly. Bones/joints: Unremarkable. XR/XR chest 1V portable [id number] IMPRESSION: Left lower lobe infiltrate.
--- NOTE | 2023-10-16 12:22 | ED_ITS ---
HPI - SOB/Dyspnea 2 General: Chief Complaint: Shortness of Breath/Dyspnea Stated Complaint: sob, congestion Time Seen by Provider: 10/16/23 11:56 Source: patient Mode of arrival: ambulatory Limitations: no limitations History of Present Illness: HPI Narrative: 53-year-old male has a history of ALS st ates been having recurrent pneumonias over the last 2 months he states that he had had a CT it showed a mucous plug but he has never had a bronc states that he started having worsening cough shortness of breath again this week. States he has pain in his left lower lung. Denies any vomiting diarrhea Associated symptoms: Reports chest pain; Deny abdominal pain, fever(s), nausea or vomiting Review of Systems 2 Const: Denies: fever(s), chills, body aches or change in appetite ENMT: Denies: throat pain or dental pain Card: Reports: chest pain Resp: Reports: dyspnea and non-productive cough GI: Denies: abdominal pain, nausea, vomiting or diarrhea Musc: Denies: neck pain or back pain Skin/Breast: Denies: rash Neuro: Denies: headache(s) PFSH ED 2 PFSH: Medical History C. difficile enteritis Ulcerative (chronic) enterocolitis ALS (amyotrophic lateral sclerosis) Surgical History History of oral surgery History of esophageal surgery Family History Denies family history of Diabetes Hypertension Social History Smoking and tobacco/nicotine status: never used tobacco/nicotine Alcohol intake: never Substance/Drug Use: never Physical Exam 2 Const: COMMON NORMALS: no acute distress, patient oriented x3 and healthy appearing HENMT: COMMON NORMALS: normocephalic and atraumatic HEAD & SCALP: n ormocephalic and atraumatic Neck/C-Spine: COMMON NORMALS: full ROM and supple Chest: COMMONS NORMALS: normal inspection of the chest and normal palpation of entire chest wall Resp: COMMON NORMALS: No retractions, No use of accessory muscles and clear to auscultation bilaterally AUSCULTATION: clear to auscultation bilaterally Cardio: COMMON NORMALS: regular rate, regular rhythm and No murmurs present (Cardio) RATE: regular rate RHYTHM: regular rhythm Extremity: COMMON NORMALS: normal to inspection and full ROM Neuro: COMMON NORMALS: patient oriented x3, moves all extremities and no focal motor deficits Psych: COMMON NORMALS: mental status grossly normal, Normal thought process present and cooperative THOUGHT PROCESS: Normal thought process present Skin: COMMON NORMALS: no rashes or lesions noted and no wounds GENERAL SKIN EXAM: no rashes or lesions noted Course 2 Vital Signs: Vital signs: Vital Signs Temperature 97.8 F 10/16/23 11:51 Pulse Rate 107 H 10/16/23 11:51 Respiratory Rate 17 10/16/23 11:51 Blood Pressure 97/66 10/16/23 11:51 Pulse Oximetry 97 10/16/23 11:51 Oxygen Delivery Me thod Room Air 10/16/23 11:51 MDM - SOB/Dyspnea Medical Decision Making Patient presents here with likely left lower lobe pneumonia likely from mucous plug I spoke to the hospitalist will admit have also consulted pulmonology Dr. Chavez. Medical Records I reviewed the patient's medical records. Lab Data I reviewed the patient's lab results. 10/16/23 12:31 10/16/23 12:31 Labs/Radiology: Radiology Impressions Chest X-Ray 10/16/23 11:48 IMPRESSION: Left lower lobe infiltrate. Laboratory Results WBC 7.78 10^3/uL (3.29-11.43) 10/16/23 12:31 RBC 4.19 10^6/uL (3.85-5.65) 10/16/23 12:31 Hgb 12.70 g/dL (11.27-16.99) 10/16/23 12:31 Hct 40.9 % (37-53) 10/16/23 12:31 MCV 97.6 fl (82-101) 10/16/23 12:31 MCH 30.3 pg (27-33) 10/16/23 12:31 MCHC 31.1 g/dL (30-55) 10/16/23 12:31 RDW 14.2 % (12.1-15.1) 10/16/23 12:31 Plt Count 537 10^3/cmm (157-399) H 10/16/23 12:31 MPV 10.3 fL (7.4-10.4) 10/16/23 12:31 Neut % (Auto) 73.7 % 10/16/23 12:31 Lymph % (Auto) 18.5 % 10/16/23 12:31 [place] % (Auto) 6.6 % 10/16/23 12:31 Eos % (Auto) 0.5 % 10/16/23 12:31 Baso % (Auto) 0.4 % 10/16/23 12:31 Neut # (Auto) 5.74 10^3/uL (1.8-7.7) 10/16/23 12:31 Lymph # (Auto) 1.4 10^3/uL (0.8-4.8) 10/16/23 12:31 [place] # (Auto) 0.5 10^3/uL (0.2-0.9) 10/16/23 12:31 Eos # (Auto) 0.0 10^3/uL (0.0-0.8) 10/16/23 12:31 Baso # (Auto) 0.0 10^3/uL (0.0-0.1) 10/16/23 12:31 Nucleated RBC % (auto) 0 % 10/16/23 12:31 Nucleated RBCs # 0.0 /100WBC 10/16/23 12:31 All radiology interpretation(s) finalized by discharge Discharge Plan Discharge Patient Disposition: Admitted As Inpatient Clinical Impression: ALS (amyotrophic lateral sclerosis), Community acquired pneumonia Condition: Stable Prescriptions: No Action sertraline [Zoloft] 20 mg/mL concentrate 20 mg PO DAILY Dificid 200 mg tablet 200 mg PO BID 10 Days Qty: 20 0RF riluzole 50 mg Tablet 50 mg PO Q12H omeprazole-sodium bicarbonate 20-1,680 mg Packet 1 packet PO DAILY Entyvio 300 mg Recon Soln 300 mg IV DIRECTED Rx Instructions: every 8 weeks nortriptyline 10 mg Capsule 10 mg PO DAILY gabapentin 600 mg Tablet 600 mg PO BEDTIME Referrals: Chel Weinstein, [employer]ICIAN [Primary Care Provider] - Coding 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
[2023-10-16 12:54] LABS: Basophils % 0.4 %; Eosinophils % 0.5 %; Hematocrit 40.9 % (37-53); Lymphocytes # 1.4 10^3/uL (0.8-4.8); Lymphocytes % 18.5 %; Mean Corpuscular HGB Conc 31.1 g/dL (30-55); Mean Corpuscular Hemoglobin 30.3 pg (27-33); Mean Corpuscular Volume 97.6 fl (82-101); Mean Platelet Volume 10.3 fL (7.4-10.4); Monocytes # 0.5 10^3/uL (0.2-0.9); Monocytes % 6.6 %; Neutrophils # 5.74 10^3/uL (1.8-7.7); Neutrophils % 73.7 %; Nucleated Red Blood Cells % 0 %; Platelet Count 537 10^3/cmm (157-399); Red Blood Count 4.19 10^6/uL (3.85-5.65); Red Cell Distribution Width 14.2 % (12.1-15.1); White Blood Count 7.78 10^3/uL (3.29-11.43)
[2023-10-16 13:10] LABS: Influenza A by IFA negative (Negative); Influenza B by IFA negative (Negative); SARS Covid-2 Antigen negative (Negative)
[2023-10-16] MEDS: cefTRIAXone 1,000 MG in sodium chloride 0.9% (plus) 50 ML 100 MG IV (13:11)
[2023-10-16 13:12] LABS: Alanine Aminotransferase 25 U/L (0-41); Albumin Level 3.9 g/dL (3.5-5.2); Alkaline Phosphatase 88 U/L (40-130); Anion Gap 16.3 (5-19); Aspartate Amino Transferase 26 U/L (0-40); Blood Urea Nitrogen 15 mg/dL (6-20); Calcium 9.3 mg/dL (8.5-10.5); Carbon Dioxide 28 mmol/L (22-29); Chloride 100 mmol/L (98-107); Creatinine Clr Calc Pharmacy 206.4478; Globulin 3.7 g/dL (1.3-4.6); Glomerular Filtration Rate 313.6 mL/min (90-130); Glucose 115 mg/dL (65-115); Osmolality Calculated 292 mOsm/kg (285-295); Potassium 4.3 mmol/L (3.5-5.1); Sodium 140 mmol/L (136-145); Total Bilirubin 0.2 mg/dL (0.15-1.2); Total Protein 7.6 g/dL (6.6-8.7)
[2023-10-16] MEDS: azithromycin 500 MG in sodium chloride 0.9% 250 ML 250 MG IV (13:56)
--- NOTE | 2023-10-16 17:03 | P.CONIM_ITS ---
Providers/Reason For Consult 2 Consulting Physician/Specialty*: Rj Hdz MD/pulmonary critical care Reason for Consult*: Persistent left lower lobe atelectasis Requesting Physician: Dr. Menon Attending Physician: Jossy Keene MD Primary Care Provider: MORENO Ferrara History of Present Illness History of Present Illness Silvestre Espinosa is a 53 year old male with history of past medical history of ALS, chronically in a wheelchair, history of oropharyngeal dysphagia, failed swallow eval's, currently has a PEG in place with exclusive feeding via PEG tube. -being treated for recurrent left lower lobe pneumonia with several courses of Augmentin comes to emergency room for worsening cough shortness of breath again this week. In early August 2023-patient has witnessed aspiration event on chocolate milk- diagnosed with aspiration pneumonia for which he received Augmentin along with prophylactic vancomycin orally. Repeat chest x-ray in 2 weeks did not show any resolution therefore course of Augmentin was extended by [address] of his chest was also completed on September 07, 2023 due to persistently seen left lower lobe infiltrate. There was thought to be a mucous plug at this time. patient clinically improved afterwards, he did not have any further fever or chest discomfort for about 3 weeks until symptoms appeared again. Again in mid September 2023-patient had low-grade fever, rattling sounds,. X-ray on this day continue to show atelectasis and possible infiltrate in the left lower lobe. No signs of pleural effusion or pneumothorax. There appeared to have been some improvement on this x-ray. Again patient received a course of Augmentin which he tolerated. Patient did develop antibiotic associated diarrhea both times that he was on Augmentin, however tested negative for C. difficile. Diarrhea resolved after discontinuation of Augmentin. Of note history of C. difficile during the latter part of 2022, which appears to have currently resolved after treatment with Dificid. Today comes to with increased difficulty breathing this morning. Patient feels like he is congested, unable to bring up collected mucus. He also complained of pleuritic chest pain and left lower lung zone. Denies any diarrhea. 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 Admission x-ray taken today in the emergency room shows a left lower lobe infiltrate with no significant change compared to prior chest x-rays. Patient is also currently on Entyvio for ulcerative colitis. He has been on this medication since 2019, having previously been on Remicade. There is no recent history of travel. No exotic pets at home. They have a pet dog and a few cats. 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 He has had several international rounds including those to the [place], [place] and [place]. He was serially tested on PPDs on many occasions in the , last tested 2009, has been negative on PPDs. Previously lived in [place] [facility], moved to the [facility] in 2019. No known history of coccidiomycosis. After admission patient had a CTA which showed worsening left lower lobe consolidation with occlusion of left lower bronchus with questionable endobronchial lesion. Pulmonary consult recommended for bronchoscopic inspection of airways and airway clearance. I have seen patient at bedside. He was sitting on his motorized wheelchair. We discussed at length about his presenting complaints He is on room air. Informed that he uses BiPAP when he lays down. Reports that even though he can feel rattling sounds in his lungs-he has weak cough and could not get it out. Review of Systems 2 General: Reports: 10 or more systems reviewed and unremarkable except in HPI and below Medications/Allergies Home Medications Medication Instructions Recorded Confirmed Last Taken Type nortriptyline 10 mg capsule 10 mg PO BEDTIME 04/24/20 10/16/23 10/15/23 History riluzole 50 mg tablet 50 mg PO Q12H 04/24/20 10/16/23 10/16/23 History vedolizumab 300 mg intravenous 300 mg IV DIRECTED 04/24/20 10/16/23 07/11/23 History solution (Entyvio) gabapentin 600 mg tablet 600 mg PO BEDTIME 11/29/22 10/16/23 10/15/23 History sertraline 20 mg/mL oral 20 mg PO BEDTIME 05/16/23 10/16/23 10/15/23 History concentrate (Zoloft) cetirizine 1 mg/mL oral solution 10 mg PO BEDTIME 10/16/23 10/16/23 10/15/23 History Allergies Allergy/AdvReac Type Severity Reaction Status Date / Time No Known Allergies Allergy Verified 09/19/23 09:41 PFSH Acute 2 PFSH: Medical History C. difficile enteritis Ulcerative (chronic) enterocolitis ALS (amyotrophic lateral sclerosis) Surgical History History of oral surgery History of esophageal surgery Family History Denies family history of Diabetes Hypertension Social History Smoking and tobacco/nicotine status: never used tobacco/nicotine Alcohol intake: never Substance/Drug Use: never Vitals/I&O/Wt Last Vital Signs Temp 97.8 F 10/16/23 11:51 Pulse 99 10/16/23 14:20 Resp 49 H 10/16/23 14:20 BP 101/71 10/16/23 14:20 Pulse Ox 100 10/16/23 14:20 O2 Del Method Room Air 10/16/23 14:46 10/16/23 10/16/23 10/16/23 06:59 14:59 22:59 Intake Total 50 / 50 250 / 300 Balance 50 / 50 250 / 300 Weight last 48 hrs Weight 113 lb Weight 113 lb Physical Exam 2 Narrative: General: alert, NAD, sitting in motorized wheelchair HEENT: conj clear, EOMI, PERRL, mmm, Neck: supple, no meningismus Heme: no cervical LAP Respiratory: Inspection: No visible deformity of the chest wall Palpation: Trachea is mildly deviated to the right, bilateral symmetric expansion Percussion: Bilateral tympanic percussion note both anterior and posteriorly Auscultation: Reduced breath sounds left lower lung zone Cardiovascular: rrr, nl s1s2, no mrg Abdomen: soft, nt, nd, no r/g, bs+ Extremities: pulses +, no edema, no c/c : no CVA tenderness Skin: intact, no rash MSK: no back or neck pain Neurologic: Chronically wheelchair-bound with minimal motor activity Data 10/16/23 12:31 10/16/23 12:31 Other Labs: Radiology Impressions Chest X-Ray 10/16/23 11:48 IMPRESSION: Left lower lobe infiltrate. Chest CTA 10/16/23 17:28 IMPRESSION: Worsening left lower lobe consolidation with occlusion of the left lower lobe bronchus. I can not totally exclude an endobronchial lesion here. Laboratory Results WBC 7.78 10^3/uL (3.29-11.43) 10/16/23 12:31 RBC 4.19 10^6/uL (3.85-5.65) 10/16/23 12:31 Hgb 12.70 g/dL (11.27-16.99) 10/16/23 12:31 Hct 40.9 % (37-53) 10/16/23 12:31 MCV 97.6 fl (82-101) 10/16/23 12:31 MCH 30.3 pg (27-33) 10/16/23 12:31 MCHC 31.1 g/dL (30-55) 10/16/23 12:31 RDW 14.2 % (12.1-15.1) 10/16/23 12:31 Plt Count 537 10^3/cmm (157-399) H 10/16/23 12:31 MPV 10.3 fL (7.4-10.4) 10/16/23 12:31 Neut % (Auto) 73.7 % 10/16/23 12:31 Lymph % (Auto) 18.5 % 10/16/23 12:31 [place] % (Auto) 6.6 % 10/16/23 12:31 Eos % (Auto) 0.5 % 10/16/23 12:31 Baso % (Auto) 0.4 % 10/16/23 12:31 Neut # (Auto) 5.74 10^3/uL (1.8-7.7) 10/16/23 12:31 Lymph # (Auto) 1.4 10^3/uL (0.8-4.8) 10/16/23 12:31 [place] # (Auto) 0.5 10^3/uL (0.2-0.9) 10/16/23 12:31 Eos # (Auto) 0.0 10^3/uL (0.0-0.8) 10/16/23 12:31 Baso # (Auto) 0.0 10^3/uL (0.0-0.1) 10/16/23 12:31 Nucleated RBC % (auto) 0 % 10/16/23 12:31 Nucleated RBCs # 0.0 /100WBC 10/16/23 12:31 PT 13.00 SECONDS (12.1-14.9) 10/16/23 18:04 INR 0.95 (0.8-1.2) 10/16/23 18:04 APTT 30.1 SECONDS (23.9-36.7) 10/16/23 18:04 Sodium 140 mmol/L (136-145) 10/16/23 12:31 Potassium 4.3 mmol/L (3.5-5.1) 10/16/23 12:31 Chloride 100 mmol/L (98-107) 10/16/23 12:31 Carbon Dioxide 28 mmol/L (22-29) 10/16/23 12:31 Anion Gap 16.3 (5-19) 10/16/23 12:31 BUN 15 mg/dL (6-20) 10/16/23 12:31 Creatinine 0.3 mg/dL (0.7-1.2) L 10/16/23 12:31 GFR Calculation 313.6 mL/min (90-130) H 10/16/23 12:31 Glucose 115 mg/dL (65-115) 10/16/23 12:31 Calculated Osmolality 292 mOsm/kg (285-295) 10/16/23 12:31 Calcium 9.3 mg/dL (8.5-10.5) 10/16/23 12:31 Total Bilirubin 0.2 mg/dL (0.15-1.2) 10/16/23 12:31 AST 26 U/L (0-40) 10/16/23 12:31 ALT 25 U/L (0-41) 10/16/23 12:31 Alkaline Phosphatase 88 U/L (40-130) 10/16/23 12:31 Total Protein 7.6 g/dL (6.6-8.7) 10/16/23 12:31 Albumin 3.9 g/dL (3.5-5.2) 10/16/23 12:31 Globulin 3.7 g/dL (1.3-4.6) 10/16/23 12:31 Influenza Type A Ag negative (Negative) 10/16/23 12:30 Influenza Type B Ag negative (Negative) 10/16/23 12:30 SARS-CoV-2 Ag (Rapid) negative (Negative) 10/16/23 12:30 Micro: Microbiology 10/16/23 12:31 Blood Culture - Preliminary Blood SPECIMEN COLLECTED 10/16/23 12:26 Blood Culture - Preliminary Blood SPECIMEN COLLECTED A&P Assessment and plan (1) Left lower lobe consolidation: (2) Recurrent pneumonia: (3) ALS (amyotrophic lateral sclerosis): Plan # Recurrent left lower lobe pneumonia with persistent atelectasis # At high risk for aspiration due to underlying ALS -Received at least 3 rounds of Augmentin since July 2023 -Received 1 dose of Rocephin and azithromycin in ER-hold off antibiotics unless patient has high-grade fever or chills. -CT imaging suggestive of worsening left lower lobe consolidation with questionable endobronchial mucous plug/lesion -Plan for bronchoscopic inspection of airways, mucus clearance, possible endobronchial biopsies -Will obtain BAL and sent for various studies. # ALS -Uses noninvasive ventilator at nighttime Coding Level of Care Code Acute Code for Chg Fwd Diagnoses Left lower lobe consolidation J18.1 Recurrent pneumonia J18.9 ALS (amyotrophic lateral sclerosis) G12.21 Time Spent (min) 58
--- NOTE | 2023-10-16 17:28 | CTR_ITS ---
PROCEDURE INFORMATION: Exam: CTA Chest With Contrast Exam date and time: 10/16/2023 8:18 PM Age: 53 years old Clinical indication: Shortness of breath; Additional info: Evaluate for pe, persistent lll infiltrate since aug 2021. Compartive TECHNIQUE: Imaging protocol: Computed tomographic angiography of the chest with contrast. Exam focused on the arteries. 3D rendering (Not supervised by radiologist): MIP and/or 3D reconstructed images were created by the technologist. Radiation optimization: All CT scans at this facility use at least one of these dose optimization techniques: automated exposure control; mA and/or kV adjustment per patient size (includes targeted exams where dose is matched to clinical indication); or iterative reconstruction. Contrast material: OMNI 350; Contrast volume: 51 ml; Contrast route: INTRAVENOUS (IV); COMPARISON: CT angio chest w abd pel w con 05/20/2023 9:55 PM RADIATION DOSE METRICS: Total DLP (mGy-cm): 189.4 FINDINGS: Pulmonary arteries: Normal. No pulmonary emboli. Aorta: Unremarkable. No aortic aneurysm. No aortic dissection. Lungs: There is a large area of dense consolidation involving the left lower lobe. There is occlusion involving the primary bronchus of the left lower lobe. Pleural spaces: Unremarkable. No pneumothorax. No pleural effusion. Heart: Unremarkable. No cardiomegaly. No pericardial effusion. Lymph nodes: Unremarkable. No enlarged lymph nodes. Bones/joints: Unremarkable. No acute fracture. Soft tissues: Unremarkable. CT/CT angio chest PE protcl [id number] IMPRESSION: Worsening left lower lobe consolidation with occlusion of the left lower lobe bronchus. I can not totally exclude an endobronchial lesion here.
--- NOTE | 2023-10-16 17:33 | P.HP_ITS ---
Providers/Chief Complaint 2 Admitting Physician: Jossy Keene MD Primary Care Provider: MORENO Ferrara Chief Complaint: sob, congestion History of Present Illness Silvestre Espinosa is a 53 year old male with a past medical history of ALS, chronically in a wheelchair, history of oropharyngeal dysphagia, failed swallow eval's, currently has a PEG in place with exclusive feeding via PEG tube. Also has a history of C. difficile during the latter part of 2022, which appears to have currently resolved after treatment with Dificid. Patient is presenting currently with recurrent pneumonia. Patient was first diagnosed with a pneumonia in August 2023. Per history available, patient had a witnessed aspiration event on chocolate milk in early August 2023. 1 to 2 days afterwards he started to develop low-grade fever, and a rattle for which she visited with his primary care physician. He was diagnosed with a left lower lobe pneumonia for which he received Augmentin along with prophylactic vancomycin orally. Chest x-ray was repeated after two 1 week, did not show any resolution therefore course of Augmentin was extended by [address] of his chest was also completed on September 07, 2023 due to persistently seen left lower lobe infiltrate. There was thought to be a mucous plug at this time. patient clinically improved afterwards, he did not have any further fever or chest discomfort for about 3 weeks until symptoms appeared again. He developed again low-grade fever, increased rattling (he is unable to expectorate due to ALS) and and left-sided chest pain, worsened with increased breathing for which she presented into the emergency room on September 28, 2023. X- ray on this day continue to show atelectasis and possible infiltrate in the left lower lobe. No signs of pleural effusion or pneumothorax. There appeared to have been some improvement on this x-ray. Again patient received a course of Augmentin which she tolerated. Patient did develop antibiotic associated diarrhea both times that he was on Augmentin, however tested negative for C. difficile. Diarrhea resolved after discontinuation of Augmentin. He presents to the emergency room today due to increased difficulty breathing this morning. Patient feels like he is congested, unable to bring up collected mucus. Patient had been provided a referral to see pulmonology, however was unable to get into see a qa intern either here or at [place]. X-ray taken today in the emergency room shows a left lower lobe infiltrate. Per my personal review the left lower lobe infiltrate appears to have changed very little since earlier this year. Patient is also currently on Entyvio for ulcerative colitis. He has been on this medication since 2019, having previously been on Remicade. There is no recent history of travel. No exotic pets at home. They have a pet dog and a few cats. 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 He has had several international rounds including those to the [place], [place] and [place]. He was serially tested on PPDs on many occasions in the , last tested 2009, has been negative on PPDs. Previously lived in [facility], moved to the [facility] in 2019. No known history of coccidiomycosis. Review of Systems 2 General: Reports: 10 or more systems reviewed and unremarkable except in HPI and below Const: Denies: fever(s), chills or body aches Eyes: Denies: change in vision, blurry vision or photophobia ENMT: Reports: hoarseness; Denies: throat pain, enlarged tonsils, odynophagia or nasal congestion Card: Denies: chest pain, palpitations, irregular heart rhythm, edema, swelling of feet/ankles, lightheadedness, pre-syncope, dyspnea on exertion or orthopnea Resp: Denies: dyspnea, productive cough, non-productive cough, wheezing, stridor, pain on inspiration, change in phlegm color, hemoptysis or chest congestion GI: Denies: abdominal pain, nausea, vomiting, hematemesis, coffee ground emesis, dysphagia, heartburn, diarrhea, constipation, GI cramping, change in stool character, hematochezia or melena : Denies: flank pain, dysuria, urinary frequency, urinary urgency, urinary hesitancy or hematuria Musc: Denies: neck pain, back pain, extremity pain, joint swelling, joint warmth or deformity Neuro: Denies: headache(s), numbness in extremities, weakness in extremities, sensory changes, difficulty walking, frequent falls, dizziness, vertigo, behavioral changes, Slurred speech present or seizure-like activity Psych: Denies: anxiety, depression, suicidal ideation or homicidal ideation Endo: Denies: polyuria, polydipsia, tired all the time, cold intolerance or hot flashes Piero/Lymph: Denies: easy bruising or easy bleeding Medications/Allergies Home Medications Medication Instructions Recorded Confirmed Last Taken Type nortriptyline 10 mg capsule 10 mg PO BEDTIME 04/24/20 10/16/23 10/15/23 History riluzole 50 mg tablet 50 mg PO Q12H 04/24/20 10/16/23 10/16/23 History vedolizumab 300 mg intravenous 300 mg IV DIRECTED 04/24/20 10/16/23 07/11/23 History solution (Entyvio) gabapentin 600 mg tablet 600 mg PO BEDTIME 11/29/22 10/16/23 10/15/23 History sertraline 20 mg/mL oral 20 mg PO BEDTIME 05/16/23 10/16/23 10/15/23 History concentrate (Zoloft) cetirizine 1 mg/mL oral solution 10 mg PO BEDTIME 10/16/23 10/16/23 10/15/23 History Allergies Allergy/AdvReac Type Severity Reaction Status Date / Time No Known Allergies Allergy Verified 09/19/23 09:41 PFSH Acute 2 PFSH: Medical History C. difficile enteritis Ulcerative (chronic) enterocolitis ALS (amyotrophic lateral sclerosis) Surgical History History of oral surgery History of esophageal surgery Family History Denies family history of Diabetes Hypertension Social History Smoking and tobacco/nicotine status: never used tobacco/nicotine Alcohol intake: never Substance/Drug Use: never Vitals/I&O/Wt Last Vital Signs Temp 97.8 F 10/16/23 11:51 Pulse 99 10/16/23 14:20 Resp 49 H 10/16/23 14:20 BP 101/71 10/16/23 14:20 Pulse Ox 100 10/16/23 14:20 O2 Del Method Room Air 10/16/23 14:46 10/16/23 10/16/23 10/16/23 06:59 14:59 22:59 Intake Total 50 / 50 250 / 300 Balance 50 / 50 250 / 300 Weight last 48 hrs Weight 51.256 kg Weight 51.256 kg Physical Exam 2 Narrative: General: No acute distress, AO x3, sitting in wheelchair HEENT: PERRLA, pupils bilaterally equal and reactive, pallors not present Chest: Normal vesicular breath sounds, no added sounds, equal good air entry bilaterally CVS: S1-S2 regular, no murmurs, no tachycardia, no gallops, no rubs Abdomen: Soft, nontender, no organomegaly, bowel sounds present Neuro: chronically wheelchair bound Data 10/16/23 12:31 10/16/23 12:31 Micro: Microbiology 10/16/23 12:31 Blood Culture - Preliminary Blood SPECIMEN COLLECTED 10/16/23 12:26 Blood Culture - Preliminary Blood SPECIMEN COLLECTED Other data: [place] [address] XRay Report Signed Patient: Silvestre Espinosa Unit #: [id number] : 1970 Age/Sex: 53 / M ADM Date: 10/16/23 Loc: ER Room/Bed: Attending Dr: Ordering Provider/Ordering MD: Christiano Menon MD Date of Service: 10/16/23 Procedure(s): XR chest 1V portable [id number] Accession Number(s): [id number] Report Number: [id number] PROCEDURE INFORMATION: Exam: XR Chest Exam date and time: 10/16/2023 12:07 PM Age: 53 years old Clinical indication: Cough; Prior surgery; Surgery date: 6+ months; Surgery type: Esophagus TECHNIQUE: Imaging protocol: Radiologic exam of the chest. Views: 1 view. COMPARISON: CR XR chest 1V portable [id number] 09/28/2023 2:25 PM FINDINGS: Lungs: Left lower lobe infiltrate. Pleural spaces: Unremarkable. No pleural effusion. No pneumothorax. Heart/Mediastinum: Unremarkable. No cardiomegaly. Bones/joints: Unremarkable. XR/XR chest 1V portable [id number] IMPRESSION: Left lower lobe infiltrate. [place] [address] XRay Report Signed Patient: Silvestre Espinosa Unit #: [id number] : 1970 Age/Sex: 53 / M ADM Date: 09/28/23 Loc: ER Room/Bed: Attending Dr: Ordering Provider/Ordering MD: Christiano Menon MD Date of Service: 09/28/23 Procedure(s): XR chest 1V portable [id number] Accession Number(s): [id number] Report Number: [id number] PROCEDURE INFORMATION: Exam: XR Chest Exam date and time: 09/28/2023 2:25 PM Age: 53 years old Clinical indication: Cough TECHNIQUE: Imaging protocol: Radiologic exam of the chest. Views: 1 view. COMPARISON: Chest x-ray September 05, 2023 at 11:42 a.m. FINDINGS: Lungs: Decreased pneumonia and atelectasis in the left lung base. Unchanged bilateral apical scarring. Otherwise, unremarkable. Pleural spaces: Unremarkable. No pleural effusion. No pneumothorax. Heart/Mediastinum: Unremarkable. No cardiomegaly. Bones/joints: Unremarkable. XR/XR chest 1V portable [id number] IMPRESSION: Decreased pneumonia and atelectasis in the left lung base. Patient: Silvestre Espinosa Unit #: [id number] : 1970 Age/Sex: 52 / M ADM Date: 09/07/23 Loc: RAD Room/Bed: Attending Dr: Chel MAYER Ordering Provider/Ordering MD: Chel Weinstein Date of Service: 09/07/23 Procedure(s): CT chest con [id number] Accession Number(s): [id number] Report Number: [id number] WS: [id number] CT chest con [id number] HISTORY: SCARRING VS LEFT LOWER LOBE PNEUMONIA TECHNIQUE: Axial imaging performed through the thorax. Coronal and sagittal reformats are submitted. All CT scans at [facility] use at least one of these dose optimization techniques: automated exposure control; mA and/or kV adjustment per patient size (includes targeted exams where dose is matched to clinical indication); or iterative reconstruction. CONTRAST: None DLP: 221.63 mGy.cm COMPARISON: 05/20/2023 Lungs and central airway: New area of dense consolidation with air bronchograms in the LEFT lower lobe. There is also mild volume loss and atelectasis. There is dense consolidation with surrounding mild hazy attenuation. Consolidation is new since 05/20/2023. There may be mucous plugging in segments of the LEFT lower lobe bronchi. There is some volume loss in the LEFT lower lobe suggesting partial atelectasis. RIGHT lung is clear. Pleura: Normal. No pleural effusion. Heart and pericardium: Normal size heart with no pericardial effusion. Mediastinum and flavia: No mediastinum or hilar adenopathy. Vessels: Normal size aortic and pulmonary artery. No coronary artery calcifications. Chest wall and lower neck: No soft tissue masses. Upper abdomen: Normal. Osseous structures: No destructive process. IMPRESSION: 1. Dense consolidation with air bronchograms and mild volume loss in the LEFT lower lobe. Pneumonia with associated atelectasis is likely. There is increased soft tissue in segments of the LEFT lower lobe bronchi. Suspect bronchial obstruction. This may all be mucous plugging. Consider follow-up with pulmonology. 2. No adenopathy. No additional pneumonia. 3. The LEFT lower lobe consolidation is new since 05/20/2023. A&P Assessment and plan (1) Recurrent pneumonia: Patient currently admitted with complaint of recurrent pneumonia since August 2023. HPI as noted above. Essentially patient has had a left lower lobe infiltrate since August 2023. On CT chest he was noted to have dense consolidation with air bronchograms and mild volume loss in the left lower lobe. There was also suspicion for increased soft tissue in segments of the left lower lobe bronchi concerning for bronchial obstruction. Differentials at this time include possibility of recurrent aspiration pneumonia, possibility of bronchial obstruction either related to mucous plugging versus foreign body versus endobronchial mass. Recommend pulmonology consult for bronchoscopy. Patient reports transient improvement with courses of Augmentin however symptoms have recurred multiple times. Other possibilities include PE with possible lung infarction given also left- sided chest pain. Will obtain CTA of the chest today. This will evaluate for PE and also allow for comparison compared to CAT scan taken in August for any interval changes. He has had exposure to several carcinogens during his time in the therefore would need to evaluate for possible malignancy. Additionally patient is on Entyvio and persistence of lung infiltrate will evaluate for alternate possibilities including fungal and mycobacterial infections. Peripheral fungal workup with Aspergillus galactomannan antigen, serum cryptococcal antigen, Fungitell, histoplasma serology, urine histoplasma antigen, coccidial mycosis APPLIED TECHNOLOGIST, Blastomyces serology. From bronchoscopy recommend to obtain Aspergillus galactomannan, beta D glucan, bacterial fungal and mycobacterial cultures. Low probability of TB at this time given serially negative PPDs over several years during his time in the . He has not traveled overseas in several years. He has received 1 dose of ceftriaxone and azithromycin in the emergency room. Hold off on further antibiotics unless develops high-grade fever chills to maximize yield from cultures expected to be obtained tomorrow on bronchoscopy. Pulmonology consult for bronchoscopy. (2) Recurrent Clostridioides difficile diarrhea: Tested negative for C. difficile after treatment with Dificid in June 2023 and then again in August 2023. Most recently tested when he developed diarrhea on Augmentin. Diarrhea resolved quickly after discontinuation of Augmentin, suspect this was antibiotic associated diarrhea. Patient has been established at [facility] for FMT should he test positive for C. difficile again. (3) ALS (amyotrophic lateral sclerosis): Currently at baseline. Chronically wheelchair-bound. Will use noninvasive vent at nighttime. Plan DVT ppx: Lovenox Full code This documentation was created by [employer] administrative processor software. Every effort was made to ensure accuracy of administrative processor. Any obvious errors or omissions should be clarified with the author of the document. Attestations 2 Medical Necessity Statement*: Anticipate greater than 2 midnight admission for recurrent pneumonia, persistent left lower lobe infiltrate, need for pulmonology assessment and bronchoscopy. Coding Level of Care Code Acute Code for Chg Fwd High Time for a total of 60 minutes, includes reviewing past or interval history, examining/interviewing patient, placing orders, counseling patient/family/other support, discussing plan of care with staff, communicating with other healthcare providers, documenting encounter and coordinating care Diagnoses Recurrent pneumonia J18.9 Recurrent Clostridioides difficile diarrhea A04.71 ALS (amyotrophic lateral sclerosis) G12.21
[2023-10-16 18:34] LABS: INR 0.95 (0.8-1.2); Partial Thromboplastin Time 30.1 SECONDS (23.9-36.7)
[2023-10-16] MEDS: enoxaparin 40 mg/0.4 mL Syringe SUBCUT (18:35)
[2023-10-16] MEDS: pantoprazole 40 mg SDV IVP (18:35)
[2023-10-16] MEDS: iohexol 350 mg/mL 500 mL Btl (per mL) IV (20:19)
[2023-10-16] MEDS: NORTRIPTYLINE 10 MG/5 ML PO (21:24)
[2023-10-16] MEDS: GABAPENTIN 250 MG/5 ML PO (21:24)
[2023-10-16] MEDS: RILUZOLE 50 MG 50 EACH PO (21:24)
[2023-10-16] MEDS: SERTRALINE 20 MG/ML PO (21:25)
[2023-10-16] MEDS: acetaminophen 325 mg Tablet 650 MG PEG-TUBE (21:26)
[2023-10-16] MEDS: [UNRECOGNIZED DRUG - OTHER] PO (21:26)
[2023-10-17] VITALS (19 sets, daily range): BP systolic 101–124; BP diastolic 68–88; PULSE 75–101; RESP 16–24; TEMP 36.1–36.7; O2SAT 85–99
--- NOTE | 2023-10-17 07:00 | ANES.PREANE2 ---
Pre-Anesthetic Assessment Height/Weight: Height 1.75 m Weight 53.615 kg Temp Pulse Resp BP Pulse Ox O2 Del Method O2 Flow Rate 97.8 F 101 H 16 101/70 99 CPAP 0 10/17/23 11:44 10/17/23 11:44 10/17/23 11:44 10/17/23 11:44 10/17/23 11:44 10/17/23 11:44 10/17/23 08:04 Operation Date: 10/17/23 07:10 Proposed Procedures p Bronchoscopy(Not Applicable) - Rj Menjivar DatarMD Familial anesthetic complications: none Was Beta Fátima taken within 24 hours: N/A Was Clonidine taken within 24 hours: N/A Last Intake: 19:00 Social No alcohol and No tobacco Exam alert and oriented x 3 Airway Submandibular: Other (very small mouth opneing) Cervical ROM: within normal limits Mallampati: Class IV Dentition: full Pulmonary on cpap for 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 must sit at 90 degrees to breathe without nasal CPAP. None reported Hepatic None reported GI None reported Metabolic None reported has PEG tube. [facility] ALS- diagnosed in 2019- currently wheelchair bound. Anesthetic Plan ASA status: 4 Anesthesia: Anesthesia Evaluation and General Risk of > 500 ml blood loss (7ml/kg in children): No Medications/Allergies Home Medications Medication Instructions Recorded Confirmed Last Taken Type nortriptyline 10 mg capsule 10 mg PO BEDTIME 04/24/20 10/16/23 10/15/23 History riluzole 50 mg tablet 50 mg PO Q12H 04/24/20 10/16/23 10/16/23 History vedolizumab 300 mg intravenous 300 mg IV DIRECTED 04/24/20 10/16/23 07/11/23 History solution (Entyvio) gabapentin 600 mg tablet 600 mg PO BEDTIME 11/29/22 10/16/23 10/15/23 History sertraline 20 mg/mL oral 20 mg PO BEDTIME 05/16/23 10/16/23 10/15/23 History concentrate (Zoloft) cetirizine 1 mg/mL oral solution 10 mg PO BEDTIME 10/16/23 10/16/23 10/15/23 History Allergies Allergy/AdvReac Type Severity Reaction Status Date / Time No Known Allergies Allergy Verified 09/19/23 09:41 Current Medications Generic Name Dose Route Start Last Admin Trade Name Alexq PRN Reason Stop Dose Admin Acetaminophen 650 mg 10/16/23 17:27 10/16/23 21:26 Acetaminophen 325 Mg Tablet PEG-TUBE 650 mg Q6H PRN Administration Mild/Mod Pain Or Temp >/= 101 Enoxaparin Sodium 40 mg 10/16/23 17:30 10/16/23 18:35 Enoxaparin 40 Mg/0.4 Ml Syringe SUBCUT 40 mg Q24H NED Administration Non-Formulary Medication 50 mg 10/16/23 21:00 10/16/23 21:24 Riluzole PO 50 mg Q12H NED Administration Non-Formulary 0 each 10/16/23 21:00 10/16/23 21:24 Medication PO 15 each Nortriptyline 10 Mg/ BEDTIME NED Administration 5 Ml Non-Formulary 0 each 10/16/23 21:00 10/16/23 21:24 Medication PO 10 each Gabapentin 250 Mg/5 BEDTIME NED Administration Ml Non-Formulary 0 each 10/16/23 21:00 10/16/23 21:25 Medication PO 2.5 each Sertraline 20 Mg/Ml BEDTIME NED Administration Non-Formulary 0 each 10/16/23 21:00 10/16/23 21:26 Medication Childrens PO 10 each Aller-Mayank BEDTIME NED Administration Pantoprazole Sodium 40 mg 10/16/23 17:30 10/16/23 18:35 Pantoprazole 40 Mg Sdv IVP 40 mg Q24H NED Administration PFSH Anesthesia Medical History C. difficile enteritis Ulcerative (chronic) enterocolitis ALS (amyotrophic lateral sclerosis) Surgical History History of oral surgery History of esophageal surgery Family History Denies family history of Diabetes Hypertension Social History Smoking and tobacco/nicotine status: never used tobacco/nicotine Alcohol intake: never Substance/Drug Use: never Data Anesthesia 10/16/23 12:31 10/16/23 12:31 Short CBC 10/16/23 Range/Units 12:31 WBC 7.78 (3.29-11.43) 10^3/uL Hgb 12.70 (11.27-16.99) g/dL Hct 40.9 (37-53) % MCV 97.6 (82-101) fl Plt Count 537 H (157-399) 10^3/cmm Neut % (Auto) 73.7 % Neut # (Auto) 5.74 (1.8-7.7) 10^3/uL BMP 10/16/23 12:31 Sodium 140 Potassium 4.3 Chloride 100 Carbon Dioxide 28 BUN 15 Creatinine 0.3 L Glucose 115 Calcium 9.3 Liver Function 10/16/23 Range/Units 12:31 Total Bilirubin 0.2 (0.15-1.2) mg/dL AST 26 (0-40) U/L ALT 25 (0-41) U/L Alkaline Phosphatase 88 (40-130) U/L Albumin 3.9 (3.5-5.2) g/dL COVID Results 10/16/23 12:30 SARS-CoV-2 Ag (Rapid) negative Coags 10/16/23 18:04 PT 13.00 INR 0.95 APTT 30.1 Microbiology 10/16/23 12:31 Cryptococcal Antigen (Serum) - Final Blood 10/16/23 12:31 Blood Culture - Preliminary Blood SPECIMEN COLLECTED 10/16/23 12:26 Blood Culture - Preliminary Blood SPECIMEN COLLECTED Cardiac Studies: No Data to Display
[2023-10-17] MEDS: sodium chloride 0.9% 1,000 ML 30 ML IV (07:34)
[2023-10-17] MEDS: lidocaine 1% INJ 10 mL (per mL) XX (07:51)
[2023-10-17 08:08] LABS: Apprearance, Bronch Wash Cloudy (CLEAR); Bronch Source LEFT LOWER LOBE BAL; Color, Bronc Wash Slight Pink; PATH Referral Yes
--- NOTE | 2023-10-17 08:08 | PM.OP ---
Operative Report Date of procedure: October 17, 2023 Pre-op diagnosis: Persistent left lower lobe atelectasis due to mucous plugging Post-op diagnosis: Same Procedure done: Procedure : [id number] Dx Bronchoscope w/Washings or airway inspection 19314 Dx Bronchoscope w/BAL [id number] Bronchoscopy w/ therapeutic aspiration of the tracheobronchial tree (clearance of airway secretions, removal of mucus plugs) Surgeon: Rj Hdz MD Brief History: Silvestre Espinosa is a 53 year old male with history of past medical history of ALS, chronically in a wheelchair, history of oropharyngeal dysphagia, failed swallow eval's, currently has a PEG in place with exclusive feeding via PEG tube. -being treated for recurrent left lower lobe pneumonia with several courses of Augmentin comes to emergency room for worsening cough shortness of breath again this week. After admission patient had a CTA which showed worsening left lower lobe consolidation with occlusion of left lower bronchus with questionable endobronchial lesion. Pulmonary consult recommended for bronchoscopic inspection of airways and airway clearance. Procedure: Procedure : 84606 Dx Bronchoscope w/Washings or airway inspection 47160 Dx Bronchoscope w/BAL 57784 Bronchoscopy w/ therapeutic aspiration of the tracheobronchial tree (clearance of airway secretions, removal of mucus plugs) Pre-Operative Diagnosis: Mucous plugging causing persistent left lower lobe atelectasis Post-Operative Diagnosis: Same Indication: CT evidence of persistent left lower lobe atelectasis likely secondary to endobronchial obstruction/mucous plugging Anesthesia: General anesthesia. Local anesthesia: The macie in the right and left mainstem bronchi were anesthetized with 1% lidocaine, 3 mL. Description of the procedure: The procedure was explained to the patient and the consent was obtained. The patient was brought to the OR. The patient underwent induction for general anesthesia and laryngeal mask airway (LMA) was placed. The bronchoscope was advanced through the LMA. Vocal cords are mobile. 1% lidocaine 1 mL instilled over the vocal cords. The bronchoscope was passed through the vocal cords into the trachea. Tracheal mucosa appeared normal, no endotracheal lesion was seen. The macie was sharp. 1 mL each of 1% lidocaine was instilled in the trachea the right and left mainstem bronchi for local anesthesia. In a systematic manner bilateral bronchial tree was then examined. The bronchoscope was then introduced into the right mainstem bronchus. The right upper lobe, right middle lobe and right lower lobe bronchi were examined up to the third subsegmental level and no abnormalities were identified. The mucosa appeared normal with no endobronchial lesions, active bleeding or mucous plugs.There were clear secretions which were suctioned right away. The bronchoscope was advanced into the left mainstem bronchus. There was some thick mucus secretions throughout left airway which were suctioned. The left upper lobe, and lingula were examined up to the third subsegmental level and no abnormalities were identified. There were copious thick mucous plugs which completely occluding left lower lobe airway, all the secretions were thoroughly suctioned and cleared the airways. Therapeutic bronchoscope was replaced with diagnostic bronchoscope and advanced further into left lower lobe segments and did not notice any endobronchial lesions. Bronchoalveolar lavage was taken near left lower lobe Samples: 1. Bronchoalveolar lavage was performed after wedging the bronchoscope at the entrance of medial segment of left lower lobe. 60 mL of saline was instilled, fluid return was 20 mL. Bronchoalveolar lavage specimen was sent for cell count and differential, gram stain and culture, cytology, Aspergillus galactomannan, fungal cultures, beta D glucan, mycobacterial cultures. Complications: None.The patient was extubated and brought to the PACU in stable condition. Disposition: Patient can be discharged home in stable condition from pulmonary standpoint-encouraged to use incentive spirometry, chest vest. Pt and his are aware that I am going to call them with the results.
[2023-10-17 08:13] LABS: Cyto Order Verification Order Verified
--- NOTE | 2023-10-17 08:14 | XR_ITS ---
WS: [id number] Examination: XR chest 1V portable [id number] Reason for Exam: left lower lobe atelectasis post bronchoscopy and mucus dimas Date: October 17, 2023 Comparison: October 16, 2023 Findings: The heart is not enlarged. The mediastinum not widened. The flavia are not enlarged There is no pulmonary edema There is continued consolidation and opacity noted at the left base Impression: Similar appearance of left lower lobe consolidation.
--- NOTE | 2023-10-17 09:10 | ANE.PACU2 ---
Inpatient post-anesthesia follow up: Airway intact: Yes Vital signs: Temperature 97.4 F Pulse Rate 77 Respiratory Rate 22 Blood Pressure 110/76 Pulse Oximetry 98 Oxygen Delivery Me thod BiPAP Oxygen Flow Rate 0 Fraction of Inspir ed Oxygen Hydration adequate: Yes Nausea and vomiting: No Pain level: 1 Mental status: Baseline
--- NOTE | 2023-10-17 09:56 | PC.CHAP ---
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 visit [] Patient/Family/Request visit [] Outpatient visit [] Follow-up visit [] Physician referral [] Code/Alert [x] Routine visit [] Staff referral [] Actively dying [] Patient sleeping [x] Family support [] [] Out of room [] Palliative care [] [] Receiving care in room [] Pre-surgical visit [] Trauma [] Long length of stay [] ICU visit [] Other: Relational/Emotional Strength [x] Patient feels connected with others/family/visitors/staff [] Distress [] Loneliness/isolation [] Abandonment Spirituality of Patient [x] Person of Avis [] Attends Pentecostal of their Avis [x] Believes in Prayer [] Reads Bible or Orthodoxy materials [] There are Spiritual issues to be addressed Director Educational Radio Interventions [x] Prayer [] Active listening [x] Non-anxious presence [x] Spiritual/emotional support [] Crisis/trauma care [] Spiritual counseling [] Bereavement support [] Provided bereavement packet [] Provided Bible/devotional materials [] Provided toy/stuffed animal, coloring book to patient or family member [] Provided Communion [] Anointing/[place] [] Salvation [x] Completed spiritual assessment [] Other: Impact on Illness or Injury [] Angry [] Fearful [] Anxious [] Often cries [] Exhaustion [] Unable to work [] Unable to attend religion [] Unable to walk/stand [] Unable to read [] Unable to drive [] Unable to eat/drink [] Unable to sleep [] Unable to be with family [] Patient intubated [] Other: Summary Time spent with patient 5 min
[2023-10-17 11:22] LABS: Total Cells Counted Bronch 200
--- NOTE | 2023-10-17 13:27 | PM.DCS ---
Discharge Providers Date of Admission: 10/16/23 12:52 Date of Discharge: October 17, 2023 Attending Provider at Admission: Jossy Keene MD Attending Provider at Discharge: Jossy Keene MD Primary Care Provider: MORENO Ferrara Diagnoses at Discharge Discharge Diagnosis (1) Left lower lobe consolidation: Status: Acute (2) Recurrent pneumonia: Status: Acute (3) ALS (amyotrophic lateral sclerosis): Status: Acute Reason for Visit Reason for Visit: sob, congestion Hospital Course Hospital Course Please see H&P for details from October 16, 2023 for events leading up to admission. Patient was admitted to the hospital for a persistent left lower lobe infiltrate/pneumonia that was encountered on serial x-rays and CT of the chest. There was suspicion for endobronchial obstruction for which patient was recommended bronchoscopy which was able to be completed this morning. During the procedure he was noted to have abundant mucus obstructing his smaller airways. No endobronchial lesions were visualized. There was noted to be inflammation around the tracheal rings for which patient will receive an empiric course of steroids over the next week to minimize inflammation and reaccumulation of secretions. Patient is unable to expectorate effectively as a result of his ALS. Trial of chest vest and suction apparatus to see if it may help clear out his respiratory secretions, else this is likely to be a recurrent process given underlying risk factors. No current antibiotics indicated since primarily it appears to be a anatomic process. Several cultures taken during bronchoscopy including bacterial fungal and mycobacterial cultures currently pending. We will follow these up. 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 Patint tolerated the procedure well, he is being discharged in baseline state of health earlier than anticipated. Physical Exam Narrative: General: No acute distress, AO x3 HEENT: PERRLA, pupils bilaterally equal and reactive, pallors not present Chest: Normal vesicular breath sounds, no added sounds, equal good air entry bilaterally CVS: S1-S2 regular, no murmurs, no tachycardia, no gallops, no rubs Abdomen: Soft, nontender, no organomegaly, bowel sounds present Neuro: chronically wheelchair bound Discharge Data Studies Completed and Pending Completed Studies During Hospitalization Category Date Time Status CTA chest [CT angio chest PE protcl [id number]] Routine Cat Scan 10/16/23 17:28 Completed CXRP [XR chest 1V portable [id number]] Stat Exams 10/16/23 11:48 Completed XR chest 1V portable [id number] Routine Exams 10/17/23 08:14 Completed Pending at discharge Category Date Time Status Aspergillus AG,EIA,Serum Routine Lab 10/16/23 18:04 Received Aspergillus Antigen, EIA BAL Routine Lab 10/17/23 08:12 Ordered Blastomyces AB Panel CF and ID Routine Lab 10/16/23 18:04 Received Blood Culture Stat Lab 10/16/23 12:31 Results Bronch Washing Culture & GS Routine Lab 10/17/23 07:48 Received Coccidioides AB CF Serum Routine Lab 10/16/23 18:04 Received Fungal Culture not HR/SK/BL Routine Lab 10/17/23 07:43 Uncollected Fungitell Glucan Assay (Blood) Routine Lab 10/16/23 18:04 Received Histoplasma Antibody Immunodif Routine Lab 10/16/23 18:04 Received Histoplasma Galactomannan Ag Routine Lab 10/16/23 17:31 Ordered Histoplasma Quantitative AG Routine Lab 10/16/23 17:31 Ordered Mycobacteria, Culture w/Fluor Routine Lab 10/17/23 07:48 Received Cytology [PTH] Routine Pth 10/17/23 07:43 Received Radiology Impressions Chest CTA 10/16/23 17:28 IMPRESSION: Worsening left lower lobe consolidation with occlusion of the left lower lobe bronchus. I can not totally exclude an endobronchial lesion here. Laboratory Results WBC 7.78 10^3/uL (3.29-11.43) 10/16/23 12:31 RBC 4.19 10^6/uL (3.85-5.65) 10/16/23 12:31 Hgb 12.70 g/dL (11.27-16.99) 10/16/23 12:31 Hct 40.9 % (37-53) 10/16/23 12:31 MCV 97.6 fl (82-101) 10/16/23 12:31 MCH 30.3 pg (27-33) 10/16/23 12:31 MCHC 31.1 g/dL (30-55) 10/16/23 12:31 RDW 14.2 % (12.1-15.1) 10/16/23 12:31 Plt Count 537 10^3/cmm (157-399) H 10/16/23 12:31 MPV 10.3 fL (7.4-10.4) 10/16/23 12:31 Neut % (Auto) 73.7 % 10/16/23 12:31 Lymph % (Auto) 18.5 % 10/16/23 12:31 [place] % (Auto) 6.6 % 10/16/23 12:31 Eos % (Auto) 0.5 % 10/16/23 12:31 Baso % (Auto) 0.4 % 10/16/23 12:31 Neut # (Auto) 5.74 10^3/uL (1.8-7.7) 10/16/23 12:31 Lymph # (Auto) 1.4 10^3/uL (0.8-4.8) 10/16/23 12:31 [place] # (Auto) 0.5 10^3/uL (0.2-0.9) 10/16/23 12:31 Eos # (Auto) 0.0 10^3/uL (0.0-0.8) 10/16/23 12:31 Baso # (Auto) 0.0 10^3/uL (0.0-0.1) 10/16/23 12:31 Nucleated RBC % (auto) 0 % 10/16/23 12: Nucleated RBCs # 0.0 /100WBC 10/16/23 12:31 PT 13.00 SECONDS (12.1-14.9) 10/16/23 18:04 INR 0.95 (0.8-1.2) 10/16/23 18:04 APTT 30.1 SECONDS (23.9-36.7) 10/16/23 18:04 Sodium 140 mmol/L (136-145) 10/16/23 12:31 Potassium 4.3 mmol/L (3.5-5.1) 10/16/23 12:31 Chloride 100 mmol/L (98-107) 10/16/23 12:31 Carbon Dioxide 28 mmol/L (22-29) 10/16/23 12:31 Anion Gap 16.3 (5-19) 10/16/23 12:31 BUN 15 mg/dL (6-20) 10/16/23 12:31 Creatinine 0.3 mg/dL (0.7-1.2) L 10/16/23 12:31 GFR Calculation 313.6 mL/min (90-130) H 10/16/23 12:31 Glucose 115 mg/dL (65-115) 10/16/23 12:31 Calculated Osmolality 292 mOsm/kg (285-295) 10/16/23 12:31 Calcium 9.3 mg/dL (8.5-10.5) 10/16/23 12:31 Total Bilirubin 0.2 mg/dL (0.15-1.2) 10/16/23 12:31 AST 26 U/L (0-40) 10/16/23 12:31 ALT 25 U/L (0-41) 10/16/23 12:31 Alkaline Phosphatase 88 U/L (40-130) 10/16/23 12:31 Total Protein 7.6 g/dL (6.6-8.7) 10/16/23 12:31 Albumin 3.9 g/dL (3.5-5.2) 10/16/23 12:31 Globulin 3.7 g/dL (1.3-4.6) 10/16/23 12:31 Bronch Specimen Source Left lower lobe bal 10/17/23 07:48 Bronchial Fluid Color Slight pink 10/17/23 07:48 Bronchial Fluid Appearance Cloudy (CLEAR) 10/17/23 07:48 Bronch Cells Counted 200 10/17/23 07:48 Bronchial Neutrophils 74.00 % (0.9-2.3) H 10/17/23 07:48 Bronchial Lymphocytes 4.00 % (10.71-12.91) L 10/17/23 07:48 Bronchial Eosinophils 0.00 % (0.13-0.25) L 10/17/23 07:48 Bronchial Macrophages 22.00 % (83.6-86.8) L 10/17/23 07:48 Bronchial Diff Comment Yes 10/17/23 07:48 Influenza Type A Ag negative (Negative) 10/16/23 12:30 Influenza Type B Ag negative (Negative) 10/16/23 12:30 SARS-CoV-2 Ag (Rapid) negative (Negative) 10/16/23 12:30 Vitals Last Vital Signs Temp 97.8 F 10/17/23 11:44 Pulse 101 H 10/17/23 11:44 Resp 16 10/17/23 11:44 BP 124/80 10/17/23 13:13 Pulse Ox 99 10/17/23 11:44 O2 Del Method CPAP 10/17/23 11:44 O2 Flow Rate 0 10/17/23 08:04 Discharge Plan Discharge Patient Disposition: Home Condition: Stable Prescriptions: New Prednisone Intensol 5 mg/mL concentrate 20 mg PO DAILY 10 Days Qty: 30 1RF Continued sertraline [Zoloft] 20 mg/mL concentrate 20 mg PO BEDTIME riluzole 50 mg Tablet 50 mg PO Q12H Entyvio 300 mg Recon Soln 300 mg IV DIRECTED Rx Instructions: every 8 weeks nortriptyline 10 mg Capsule 10 mg PO BEDTIME Zyrtec 1 mg/mL Solution 10 mg PO BEDTIME gabapentin 600 mg Tablet 600 mg PO BEDTIME Discharge Orders: Discharge Order (Routine); Ordered 10/17/23 Ordered By: Jossy Keene Other Ambulatory Orders: DME: Miscellaneous (Order) Location: None Selected Ordered By: Jossy Keene DME: Miscellaneous (Order) Location: None Selected Ordered By: Jossy Keene Referrals: Chel Weinstein FNP [Primary Care Provider] - 11/09/23 2:30 pm Datar,Rj Menjivar MD [Physician] - 2 weeks [facility] [Provider Group] - 10/24/23 (phone follow up on October 23- no in person visit needed ) Patient Instructions: Opioid Safety Discharge Attestations Time Spent in Discharge Care*: greater than 30 min Status at Discharge: Cognitive status at discharge: cognitively intact, Behavioral status at discharge: cooperative, Quality Metrics Clinical Quality Measures [ No reported AMI, CVA or VTE this stay] Coding Level of Care Code Acute Code for Chg Fwd Diagnoses Left lower lobe consolidation J18.1 Recurrent pneumonia J18.9 ALS (amyotrophic lateral sclerosis) G12.21
[2023-10-22 15:21] LABS: Blastomyces AB Immunodiffusion Negative (Negative); Blastomyces Dermatitidis AB <1:8 titer (<1:8)
[2023-10-23 17:45] LABS: Coccidioides AB CF Serum <1:2; Histoplasma capsulatum H Ab NEGATIVE; Histoplasma capsulatum M Ab NEGATIVE
== END 2023-10-17 14:10 | disposition home or self-care (01) | DRG 205 ==
LOC: ER 13:02 → MEDSURG 14:26
PROVIDERS: Internal Medicine Pulmonary Disease; Admitting Provider Student in an Organized Health Care Education/Training Program; Emergency Provider Emergency Medicine; PCP Nurse Practitioner; Visit Provider Student in an Organized Health Care Education/Training Program
PROC: 0BJ08ZZ Inspection of Tracheobronchial Tree, Via Natural or Artificial Opening Endoscopic (ICD-10-PCS; CPT 31622; principal; 2023-10-17 07:00)
DX: J98.11 Atelectasis (principal); J18.9 Pneumonia, unspecified organism; T17.898A Other foreign object in other parts of respiratory tract causing other injury, initial encounter; G12.21 Amyotrophic lateral sclerosis; K51.90 Ulcerative colitis, unspecified, without complications; Y99.9 Unspecified external cause status; R13.12 Dysphagia, oropharyngeal phase; Z99.3 Dependence on wheelchair; Z93.1 Gastrostomy status
CPT/HCPCS: 31624; 31645; 36415; 71045; 71275; 80053; 80503; 85025; 85610; 85730; 86403; 86612; 86635; 86698; 87015; 87040; 87070; 87102; 87116; 87205; 87206; 87305; 87426; 87449; 87801; 87804; 88112; 89050; 96365; 96367; 96372; 99285; C9113; J0456; J0696; J1650; J2704; J3010; J7030; J7050; Q9967

== ENCOUNTER → 2023-11-07 14:28 | Outpatient (BNVA) | payer OTHER, SELFPAY | PROVIDERS: PCP Nurse Practitioner; Visit Provider Student in an Organized Health Care Education/Training Program | DX: S72.001A Fracture of unspecified part of neck of right femur, initial encounter for closed fracture (principal); M53.3 Sacrococcygeal disorders, not elsewhere classified; X58.XXXA Exposure to other specified factors, initial encounter | CPT/HCPCS: 99213 ==

== ENCOUNTER 2023-11-21 11:56 | Oncology outpatient (recurring) (ONCR) | payer OTHER, SELFPAY ==
[2023-11-21] MEDS: vedolizumab 300 MG in sodium chloride 0.9% 250 ML 500 MG IV (12:58)
[2023-11-21 13:41] VITALS: BP 102/68; PULSE 96; TEMP 36.7; O2SAT 91
== END 2023-12-15 23:59 | disposition home or self-care (01) ==
PROVIDERS: PCP Nurse Practitioner; Visit Provider Nurse Practitioner
DX: K51.90 Ulcerative colitis, unspecified, without complications (principal)
CPT/HCPCS: 96413; J3380; J7050

== ENCOUNTER 2023-12-13 13:06 | Outpatient (CLI) | payer OTHER, SELFPAY ==
--- NOTE | 2023-12-13 13:13 | CT_ITS ---
WS: [id number] CT chest wo con [id number] HISTORY: SCARRING VS LEFT LOWER LOBE PNEUMONIA TECHNIQUE: Axial imaging performed through the thorax. Coronal and sagittal reformats are submitted. All CT scans at [facility] use at least one of these dose optimization techniques: automated exposure control; mA and/or kV adjustment per patient size (includes targeted exams where dose is mat ched to clinical indication); or iterative reconstruction. CONTRAST: None DLP: 247.35 mGy.cm COMPARISON: 09/07/2023, 10/16/2023 Lungs and central airway: Progression of bilateral pulmonary consolidation since 10/16/2023. Previously described consolidation and partial atelectasis in the LEFT lower lobe continues to progress. There is a more focal central irregular consolidation obstructing the LEFT lower lobe bronchi. This area of more focal irregular consolidation measures approximately 3.8 x 1.4 cm with post obstructive atelect asis. There is tree-in-bud airspace disease and areas of consolidation. There is an additional wedge- shaped opacification which is new in the posterior RIGHT lower lobe measuring 2.3 x 2.5 cm with adjac ent tree-in-bud airspace disease. Minimal hazy attenuation of the RIGHT lung base. Pleura: Very small LEFT pleural effusion. Heart and pericardium: Normal size heart with no pericardial effusion. Mediastinum and flavia: Hilar regions are very difficult to evaluate without IV contrast for interval c hange. On the prior CT of 10/16/2023 there was a LEFT hilar soft tissue which is probably lymphadenopat hy which was contiguous into the LEFT lower lobe opacification. Precarinal lymph node measures 9 mm h as increased in size. Hilar regions are difficult to evaluate for increasing adenopathy. There are a few small LEFT hilar lymph nodes. Vessels: Normal size aortic and pulmonary artery. No coronary artery calcifications. Chest wall and lower neck: No soft tissue masses. Upper abdomen: Small hiatal hernia. No adrenal mass. Osseous structures: No destructive process. CT/CT chest wo con [id number] IMPRESSION: 1. Progressive consolidation LEFT lower lobe with postobstructive atelectasis. There is a more focal irregular consolidation in the central LEFT lower lobe o bstructing the bronchus. Cannot exclude neoplasm. These changes may all be due to pneumonia with mucous plugging. 2. There are a few small mediastinal/hilar lymph nodes which have slightly inc reased in size since 10/16/2023. 3. New wedge-shaped consolidation in the posterior RIGHT upper lobe. 4. Consolidation in the LEFT lower lobe may all be pneumonia with associated m ucous plugging and atelectasis. With the increasing consolidation in the LEFT l ower lobe continued concern for neoplasm. Aspiration pneumonia also a considera tion.
== END 2023-12-13 13:07 | disposition home or self-care (01) ==
LOC: RAD 13:06
PROVIDERS: PCP Nurse Practitioner; Visit Provider Nurse Practitioner
DX: J98.4 Other disorders of lung (principal)
CPT/HCPCS: 71250

== ENCOUNTER 2023-12-13 20:01 | Inpatient (IN) | payer OTHER, SELFPAY ==
[2023-12-13] VITALS (7 sets, daily range): BP systolic 108–110; BP diastolic 72; PULSE 68–123; RESP 15–20; TEMP 36.8–37.3; O2SAT 77–97
--- NOTE | 2023-12-13 20:09 | XRR_ITS ---
PROCEDURE INFORMATION: Exam: XR Chest Exam date and time: 12/13/2023 8:55 PM Age: 53 years old Clinical indication: Shortness of breath; Prior surgery; Surgery date: 1-6 months; Surgery type: Esophagus; Additional info: SOB TECHNIQUE: Imaging protocol: Radiologic exam of the chest. Views: 1 view. COMPARISON: CT chest con [id number] 12/13/2023 1:17 PM FINDINGS: Lungs: Left basilar airspace opacities concerning for pneumonia. Pleural spaces: No evidence of pneumothorax. No evidence of pleural effusion. Heart/Mediastinum: Cardiomediastinal silhouette is within normal limits. Bones/joints: No evidence of acute osseous abnormality. XR/XR chest 1V portable [id number] IMPRESSION: 1. Left basilar airspace opacities concerning for pneumonia.
--- NOTE | 2023-12-13 20:24 | W.ED.SOB ---
HPI - SOB/Dyspnea General: Chief Complaint: Shortness of Breath/Dyspnea Stated Complaint: O2 Low Fever Time Seen by Provider: 12/13/23 20:05 Source: patient and family () Mode of arrival: wheelchair Limitations: no limitations History of Present Illness: HPI Narrative: Patient is a very nice 53-year-old male with a history of ALS (wheelchair-bound, oropharyngeal dysphagia with PEG tube) and ulcerative colitis here along with his for concerns of fever and low oxygen readings. states over the past 2 days or so patient has complained of feeling ill. He has had fevers of up to 101 and reportedly feels more short of breath than normal. He states he normally only uses his BiPAP at night when he lies down secondary to weakened diaphragmatic muscles but states he has been having to use this continuously over the past several days. states they were able to get a CT scan of his chest ordered through his PCP and this was completed today. wanted to get this done prior to their follow-up appointment with Dr. Chavez on Monday. Patient was admitted to the hospital back in October. There was a series of events that led to this hospitalization including an aspiration pneumonia 2 months prior. Patient was eventually found to have an endobronchial mucous plug that subsequently he received bronchoscopy for by Dr. Chavez. elicited complaint: shortness of breath Pertinent past history: other (ALS) Onset (ago): day(s) Timing: constant Severity: moderate Exacerbating factors: lying flat Relieving factors: other (BiPAP) Known history of: other (ALS/mucous plugging) Associated symptoms: Reports chest congestion, fever(s) and orthopnea (chronic); Deny abdominal pain, chest pain, dizziness, hemoptysis, lightheadedness, palpitations, syncope or vomiting Related Data: Home oxygen amount: other (BiPAP at night) Review of Systems Const: Reports: fever(s), chills, fatigue and malaise Card: Reports: orthopnea (chronic); Denies: chest pain, palpitations, irregular heart rhythm, edema, swelling of feet/ankles, lightheadedness, syncope or pre-syncope Resp: Reports: dyspnea, productive cough and chest congestion; Denies: wheezing or hemoptysis GI: Denies: abdominal pain, vomiting or diarrhea Neuro: Denies: headache(s) or dizziness PFS ED PFSH: Medical History C. difficile enteritis Ulcerative (chronic) enterocolitis ALS (amyotrophic lateral sclerosis) Surgical History History of oral surgery History of esophageal surgery Family History Denies family history of Diabetes Hypertension Social History Smoking and tobacco/nicotine status: never used tobacco/nicotine Alcohol intake: never Substance/Drug Use: never Physical Exam Const: COMMON NORMALS: no acute distress, patient oriented x3, no limitations and alert GENERAL APPEARANCE: cooperative NUTRITIONAL APPEARANCE: thin ORIENTATION/CONSCIOUSNESS: Yes awake, Yes oriented to person, Yes oriented to place and Yes oriented to time OTHER: Pleasant 53 yo M who is wheelchair bound with diffuse atrophy related to his ALS. He is currently wearing his BiPAP and seemingly in NAD. He is slightly tachycardic. Oxygen slightly drops when he removes machine. HENMT: COMMON NORMALS: normocephalic and atraumatic HEAD & SCALP: normal to inspection, normocephalic and atraumatic Neck/C-Spine: GENERAL: Yes normal visual inspection Chest: COMMONS NORMALS: normal inspection of the chest and normal palpation of entire chest wall Resp: AUSCULTATION: crackles and rhonchi Cardio: COMMON NORMALS: regular rhythm RATE: tachycardic RHYTHM: regular rhythm GI: COMMON NORMALS: Normal to inspection, nondistended, normoactive bowel sounds present, Soft to palpation and non-tender PALPATION: Yes Soft to palpation Neuro: COMMON NORMALS: patient oriented x3 SENSORIUM/ORIENTATION: Yes alert, Yes oriented to person, Yes oriented to place and Yes oriented to time Course Vital Signs: Vital signs: Vital Signs Temperature 99.1 F 12/13/23 20:05 Pulse Rate 115 H 12/13/23 20:05 Respiratory Rate 15 12/13/23 20:05 Blood Pressure 110/72 12/13/23 20:05 Pulse Oximetry 97 12/13/23 20:05 MDM - SOB/Dyspnea Medical Decision Making CT scan of his chest reviewed by myself along with Dr. Menon. He has staffed patient alongside me and has spoken to Dr. Abbott for admission. Lab Data 12/13/23 20:44 12/13/23 20:44 Labs/Radiology: Laboratory Results WBC 14.55 10^3/uL (3.29-11.43) H 12/13/23 20:44 RBC 3.99 10^6/uL (3.85-5.65) 12/13/23 20:44 Hgb 12.10 g/dL (11.27-16.99) 12/13/23 20:44 Hct 37.4 % (37-53) 12/13/23 20:44 MCV 93.7 fl (82-101) 12/13/23 20:44 MCH 30.3 pg (27-33) 12/13/23 20:44 MCHC 32.4 g/dL (30-55) 12/13/23 20:44 RDW 14.5 % (12.1-15.1) 12/13/23 20:44 Plt Count 306 10^3/cmm (157-399) 12/13/23 20:44 MPV 10.4 fL (7.4-10.4) 12/13/23 20:44 Neut % (Auto) 87.3 % 12/13/23 20:44 Lymph % (Auto) 6.0 % 12/13/23 20:44 [place] % (Auto) 5.7 % 12/13/23 20:44 Eos % (Auto) 0.4 % 12/13/23 20:44 Baso % (Auto) 0.3 % 12/13/23 20:44 Neut # (Auto) 12.71 10^3/uL (1.8-7.7) H 12/13/23 20:44 Lymph # (Auto) 0.9 10^3/uL (0.8-4.8) 12/13/23 20:44 [place] # (Auto) 0.8 10^3/uL (0.2-0.9) 12/13/23 20:44 Eos # (Auto) 0.1 10^3/uL (0.0-0.8) 12/13/23 20:44 Baso # (Auto) 0.0 10^3/uL (0.0-0.1) 12/13/23 20:44 Nucleated RBC % (auto) 0 % 12/13/23 20:44 Nucleated RBCs # 0.0 /100WBC 12/13/23 20:44 Sodium 138 mmol/L (136-145) 12/13/23 20:44 Potassium 4.0 mmol/L (3.5-5.1) 12/13/23 20:44 Chloride 99 mmol/L (98-107) 12/13/23 20:44 Carbon Dioxide 27 mmol/L (22-29) 12/13/23 20:44 Anion Gap 16.0 (5-19) 12/13/23 20:44 BUN 12 mg/dL (6-20) 12/13/23 20:44 Creatinine 0.2 mg/dL (0.7-1.2) L 12/13/23 20:44 GFR Calculation 500.7 mL/min (90-130) H 12/13/23 20:44 Glucose 163 mg/dL (65-115) H 12/13/23 20:44 Calculated Osmolality 289 mOsm/kg (285-295) 12/13/23 20:44 Lactic Acid 1.9 mmol/L (0.5-2.2) 12/13/23 20:44 Calcium 8.9 mg/dL (8.5-10.5) 12/13/23 20:44 Total Bilirubin 0.2 mg/dL (0.15-1.2) 12/13/23 20:44 AST 25 U/L (0-40) 12/13/23 20:44 ALT 21 U/L (0-41) 12/13/23 20:44 Alkaline Phosphatase 106 U/L (40-130) 12/13/23 20:44 NT-Pro-B Natriuret Pep 88 pg/mL (0-125) 12/13/23 20:44 Total Protein 7.8 g/dL (6.6-8.7) 12/13/23 20:44 Albumin 4.1 g/dL (3.5-5.2) 12/13/23 20:44 Globulin 3.7 g/dL (1.3-4.6) 12/13/23 20:44 All radiology interpretation(s) finalized by discharge Discharge Plan Discharge Patient Disposition: Admitted As Inpatient Admit Provider: Isaías Abbott Clinical Impression: ALS (amyotrophic lateral sclerosis), Pneumonia Condition: Stable Coding Level of Care Code ED Transportation Supervisor for Clary Yo
[2023-12-13 20:49] LABS: Basophils % 0.3 %; Eosinophils # 0.1 10^3/uL (0.0-0.8); Eosinophils % 0.4 %; Hematocrit 37.4 % (37-53); Lymphocytes # 0.9 10^3/uL (0.8-4.8); Mean Corpuscular HGB Conc 32.4 g/dL (30-55); Mean Corpuscular Hemoglobin 30.3 pg (27-33); Mean Corpuscular Volume 93.7 fl (82-101); Mean Platelet Volume 10.4 fL (7.4-10.4); Monocytes # 0.8 10^3/uL (0.2-0.9); Monocytes % 5.7 %; Neutrophils # 12.71 10^3/uL (1.8-7.7); Neutrophils % 87.3 %; Nucleated Red Blood Cells % 0 %; Platelet Count 306 10^3/cmm (157-399); Red Blood Count 3.99 10^6/uL (3.85-5.65); Red Cell Distribution Width 14.5 % (12.1-15.1); White Blood Count 14.55 10^3/uL (3.29-11.43)
[2023-12-13 21:11] LABS: Lactic Sepsis W/Reflex 1.9 mmol/L (0.5-2.2)
[2023-12-13 21:21] LABS: Alanine Aminotransferase 21 U/L (0-41); Albumin Level 4.1 g/dL (3.5-5.2); Alkaline Phosphatase 106 U/L (40-130); Aspartate Amino Transferase 25 U/L (0-40); Blood Urea Nitrogen 12 mg/dL (6-20); Calcium 8.9 mg/dL (8.5-10.5); Carbon Dioxide 27 mmol/L (22-29); Chloride 99 mmol/L (98-107); Creatinine Clr Calc Pharmacy 282.2667; Globulin 3.7 g/dL (1.3-4.6); Glomerular Filtration Rate 500.7 mL/min (90-130); Glucose 163 mg/dL (65-115); NT Pro B Type Natriuretic Pept 88 pg/mL (0-125); Osmolality Calculated 289 mOsm/kg (285-295); Sodium 138 mmol/L (136-145); Total Bilirubin 0.2 mg/dL (0.15-1.2); Total Protein 7.8 g/dL (6.6-8.7)
[2023-12-13] MEDS: vancomycin 1,000 MG in sodium chloride 0.9% 250 ML 250 MG IV (21:21)
[2023-12-13] MEDS: sodium chloride 0.9% 500 ML 999 ML IV (21:24)
[2023-12-13] MEDS: piperacillin-tazobactam 3.375 GM in sodium chloride 0.9% (plus) 50 ML IV (21:24)
--- NOTE | 2023-12-13 21:57 | P.HP_ITS ---
Providers/Chief Complaint 2 Admitting Physician: Isaías Abbott Primary Care Provider: MORENO Ferrara Chief Complaint: O2 Low Fever History of Present Illness Very pleasant 53-year-old gentleman with ALS with recent admission after a persistent left lower lobe infiltrate, pneumonia, postobstructive pneumonia with mucous plugging, concern expressed regarding lower possibility of airway obstructing mass, he underwent bronchoscopy at that time with clearing of thick secretions plugging the airways, was treated with antibiotic and steroid. He is unable to effectively expectorate due to ALS, arrangements have been made for LifeVest, suction device at home, although he states he can only suction his mouth with a cannot go to the back of the mouth, also had a CoughAssist device brought to his home, however, his states that it could not effectively produce a cough during the demonstration, and seems they are not 100% sure that they know to use it correctly due to that. He for the most part is n.p.o. with tube feeds, however, does still drink sips of water. He presents to the hospital with worsening dyspnea, requiring BiPAP support through the day where he is previously using it only while sleeping, with fever up to 101 Fahrenheit, in ER also found to have leukocytosis 14.55. Tachycardia 115, otherwise baseline heart rate is 110. He had a chest CT done this afternoon: 1. Progressive consolidation LEFT lower lobe with postobstructive atelectasis. There is a more focal irregular consolidation in the central LEFT lower lobe obstructing the bronchus. Cannot exclude neoplasm. These changes may all be due to pneumonia with mucous plugging. 2. There are a few small mediastinal/hilar lymph nodes which have slightly increased in size since 10/16/2023. 3. New wedge-shaped consolidation in the posterior RIGHT upper lobe. 4. Consolidation in the LEFT lower lobe may all be pneumonia with associated mucous plugging and atelectasis. With the increasing consolidation in the LEFT lower lobe continued concern for neoplasm. Aspiration pneumonia also a consideration. Review of Systems 2 Const: Reports: fever(s) and malaise ENMT: Denies: throat pain Card: Denies: chest pain, edema, pre-syncope or dyspnea on exertion Resp: Reports: non-productive cough; Denies: dyspnea, change in phlegm color or hemoptysis GI: Denies: abdominal pain, nausea, vomiting, diarrhea, constipation, hematochezia or melena : Denies: flank pain, difficulty urinating, urinary frequency or hematuria Musc: Denies: back pain, joint swelling or joint redness Skin/Breast: Denies: rash or new lesions Neuro: Denies: headache(s), numbness in extremities, weakness in extremities, dizziness, confusion or seizure-like activity Medications/Allergies Home Medications Medication Instructions Recorded Confirmed Last Taken Type nortriptyline 10 mg capsule 10 mg PO BEDTIME 04/24/20 11/07/23 10/15/23 History riluzole 50 mg tablet 50 mg PO Q12H 04/24/20 11/07/23 10/16/23 History vedolizumab 300 mg intravenous 300 mg IV DIRECTED 04/24/20 11/07/23 07/11/23 History solution (Entyvio) gabapentin 600 mg tablet 600 mg PO BEDTIME 11/29/22 11/07/23 10/15/23 History sertraline 20 mg/mL oral 20 mg PO BEDTIME 05/16/23 11/07/23 10/15/23 History concentrate (Zoloft) cetirizine 1 mg/mL oral solution 10 mg PO BEDTIME 10/16/23 11/07/23 10/15/23 History Allergies Allergy/AdvReac Type Severity Reaction Status Date / Time No Known Allergies Allergy Verified 12/13/23 20:12 PFSH Acute 2 PFSH: Medical History C. difficile enteritis Ulcerative (chronic) enterocolitis ALS (amyotrophic lateral sclerosis) Surgical History History of oral surgery History of esophageal surgery Family History Denies family history of Diabetes Hypertension Social History Smoking and tobacco/nicotine status: never used tobacco/nicotine Alcohol intake: never Substance/Drug Use: never Vitals/I&O/Wt Last Vital Signs Temp 99.1 F 12/13/23 20:05 Pulse 101 H 12/13/23 21:30 Resp 15 12/13/23 21:30 BP 110/72 12/13/23 20:05 Pulse Ox 94 12/13/23 21:30 Weight last 48 hrs Weight 46.72 kg Physical Exam 2 Const: COMMON NORMALS: patient oriented x3 and alert GENERAL APPEARANCE: c ooperative ORIENTATION/CONSCIOUSNESS: Yes awake HENMT: COMMON NORMALS: oropharynx normal Neck/C-Spine: COMMON NORMALS: no JVD Resp: COMMON NORMALS: normal respiratory effort and clear to auscultation bilaterally AUSCULTATION: clear to auscultation bilaterally Cardio: COMMON NORMALS: no JVD, regular rhythm, S1 normal heart sound present, S2 normal heart sound present and No murmurs present (Cardio) RHYTHM: regular rhythm HEART SOUNDS: S1 normal heart sound present and S2 normal heart sound present GI: COMMON NORMALS: Normal to inspection, nondistended, normoactive bowel sounds present, Soft to palpation and non-tender PALPATION: Yes Soft to palpation Extremity: COMMON NORMALS: no joint enlargement and no pedal edema Neuro: COMMON NORMALS: patient oriented x3 and moves all extremities S ENSORIUM/ORIENTATION: Yes alert Skin: COMMON NORMALS: no rashes or lesions noted GENERAL SKIN EXAM: no rashes or lesions noted Sepsis: Is patient septic: Yes Focused sepsis exam performed: Yes F ocused sepsis exam: Without mottling or cyanosis. Good capillary refill. Data 12/13/23 20:44 12/13/23 20:44 Micro: Microbiology 12/13/23 21:21 Blood Culture - Preliminary Blood SPECIMEN COLLECTED 12/13/23 21:10 Blood Culture - Preliminary Blood SPECIMEN COLLECTED A&P Assessment and plan (1) Recurrent pneumonia: Respiratory failure with requirement for continued BiPAP support was previously using it only at night with recurrent left lower lobe pneumonia with sepsis, likely due to difficulties with secretions, recurrent microaspiration, recently left lower lobe pneumonia with thick mucous plugging in left lower lobe on bronchoscopy. He and his family are starting additional measures to try to help him expectorate as he cannot do so effectively due to ALS. Chest CT from earlier today with worsening consolidation in left lower lobe mucous plugging, cannot exclude neoplasm also new wedge-shaped consolidation posterior right upper lobe, few small mediastinal/hilar lymph nodes with slight increase in size since October. Reviewed vitals, CBC, CMP, chest x-ray, chest CT, ER provider note, discussed with ER provider. Discussed with it corporate recruiter, as well as patient and family. Appreciate consultation, consideration will be given to repeat bronchoscopy. In the meantime continue antibiotics for pneumonia, possible aspiration pneumonia with sepsis, continue Zosyn, for now continue empirically vancomycin which she has received in ER, will check MRSA PCR. De- escalate vancomycin if MRSA negative due to risk of kidney injury with combination of Zosyn and vancomycin. Reassess kidney function. Pulmonary toilet, continue Mucinex, and hypertonic saline nebs, chest vest, RT consultation. From history obtained from his they have been having difficulty getting the CoughAssist device to work, discussed may benefit from sales representative publications coming out, she would like previous sales representative publications could not get an effective cough, so family are not sure that they are using the device properly. He also has been having difficulty with the suction device as he cannot suction the back of his mouth with the current suction catheter. May benefit from a thinner catheter. He has been set up with chest vest, although did not use it as he did not have audible secretions. Discussed considering using chest vest preemptively to help him and attempts to expectorate. Additionally he still takes in water by mouth, discussed may have to transition to complete n.p.o. at current time given some recurrent pneumonia with suspected aspiration. Unfortunately this does not prevent additional aspiration from secretions, although send water may be making it easier to aspirate. He has an upcoming MBS scheduled for [place]. He is not likely to be able to provide a sputum sample, will not add. Blood culture has been added. Will request MRSA PCR, urine bacterial antigens. Respiratory viral panel has been obtained and pending. In case of lack of success with more conservative measures as above, in case of recurrence of aspiration pneumonia, question may be to pulmonology regarding utility of consideration of tracheostomy or other airway protective surgery. (2) Left lower lobe consolidation: As above (3) Sepsis: Sepsis without endorgan injury, with leukocytosis 14.5, fever 101, sinus tachycardia 115, although his baseline heart rate is in the 100 usually due to ALS. Blood cultures have been collected. Lactic acid is normal. Antibiotics as above for treatment of pneumonia. Plan ALS: Continue patient's riluzole if it can be brought in. NPO. Tube feeds, his family going to bring his own tube feeds from home. Please reorder once available in the morning. History of ulcerative colitis History of C. difficile colitis: Had diarrhea with prior course of antibiotics which had just resolved. Monitor for recurrence of diarrhea. At risk of recurrent C. difficile colitis with repeat antibiotic course. Attestations 2 Medical Necessity Statement*: Admission of over 2 midnights anticipated for assessment and management of respiratory failure, recurrent pneumonia, sepsis without endorgan injury in a gentleman with underlying ALS. Diagnoses Recurrent pneumonia J18.9 Left lower lobe consolidation J18.1 Sepsis A41.9
--- NOTE | 2023-12-13 23:36 | PC.NURSE ---
Patient has all home medications at bedside except for Tylenol. Dr. Abbott ordered okay to continue all home medications as non-formulary and to administer patient's home medications as usual. Dose and frequency of medications provided by . Some of the doses and frequencies that the provided did not match what the bottle said. states I know the bottle says this, but we've been doing this. Pepcid bottle says BID, but says he only takes it at bedtime. Mucinex bottle says to take 30 ml QID with water, but states that patient has only been taking 20 ml at bedtime. Dose and frequencies entered as what pharmacy label reads to do. Sertraline, Nasonex, and Cetrizine bottles do not have instructions for dose and frequency on it, so dose and frequency was obtained verbally from . All other medications were entered via instructions from pharmacy label. states that patient's Gabapentin will need to be refrigerated.
--- NOTE | 2023-12-13 23:46 | PC.RESP ---
Patient has his home bipap machine and is on at this time. Patient is in no distress at this time and does not require oxygen with his home machine. patient stated he can talk if sitting up in the chair. patient requires to be sitting up in order to breath well or talk. Patient also requires to be on his home bipap while receiving vest therapy as it takes his breath if not. Patient vitals are stable at this time and is in no distress.
[2023-12-14] VITALS (9 sets, daily range): BP systolic 98–120; BP diastolic 67–81; PULSE 93–120; RESP 16–20; TEMP 36.4–37.2; O2SAT 94–97
[2023-12-14 00:02] LABS: Adenovirus Not Detected (NOT DETECT); Chlamydia Pneumoniae Not Detected (NOT DETECT); Coronavirus 229E,HKU1,NL63,OC4 Not Detected (NOT DETECT); Human Metapneumovirus Not Detected (NOT DETECT); Human Rhinovirus/Enterovirus Not Detected (NOT DETECT); Influenza A Not Detected (NOT DETECT); Influenza A H1 Not Detected (NOT DETECT); Influenza A H1-2009 Not Detected (NOT DETECT); Influenza A H3 Not Detected (NOT DETECT); Influenza B Not Detected (NOT DETECT); Mycoplasma Pneumoniae Not Detected (NOT DETECT); Parainfluenza Virus Type 1 Not Detected (NOT DETECT); Parainfluenza Virus Type 2 Not Detected (NOT DETECT); Parainfluenza Virus Type 3 Not Detected (NOT DETECT); Parainfluenza Virus Type 4 Not Detected (NOT DETECT); Respiratory Syncytial Virus A Not Detected (NOT DETECT); Respiratory Syncytial Virus B Not Detected (NOT DETECT); SARS-COV-2 Not Detected (NOT DETECT)
[2023-12-14] MEDS: CETIRIZINE 1 MG/ML 10 EACH PO ×2 (00:47→20:53)
[2023-12-14] MEDS: enoxaparin 40 mg/0.4 mL Syringe SUBCUT ×2 (00:47→22:52)
[2023-12-14] MEDS: FAMOTIDINE 40MG/5ML 20 EACH PO ×3 (00:48→17:40)
[2023-12-14] MEDS: NORTRIPTYLINE 10 MG/5 ML 30 EACH PO ×2 (00:48→20:55)
[2023-12-14] MEDS: SERTRALINE 50 MG 50 EACH PEG-TUBE ×2 (00:48→20:56)
[2023-12-14] MEDS: sodium chloride 0.9% 1,000 ML 999 ML IV (00:49)
[2023-12-14] MEDS: GUAIFENESIN 100 MG/5 ML 600 EACH PO ×3 (00:49→20:54)
[2023-12-14] MEDS: acetaminophen 650 mg/20.3 mL UDC 500 MG PO ×2 (00:52→10:56)
--- NOTE | 2023-12-14 01:36 | PC.NURSE ---
Patient refusing telemetry and gown.
--- NOTE | 2023-12-14 01:44 | PC.NURSE ---
Addendum entered by Kinza Strange RN 12/14/23 05:05: Home medications administered manually. Original Note: No in house pharmacist. Unable to get labels for patient's home medications. Unable to scan home medications.
--- NOTE | 2023-12-14 04:36 | PC.NURSE ---
Patient has not voided since arriving on the floor. Patient states that he does not feel like he needs to void. I had patient attempt to void in urinal and patient was unable to. Patient states he voided in the ED right before coming up to the floor.
[2023-12-14] MEDS: vancomycin 750 MG in sodium chloride 0.9% 250 ML 250 MG IV ×3 (04:52→20:56)
[2023-12-14 05:27] LABS: Basophils % 0.2 %; Eosinophils % 0.3 %; Hematocrit 33.1 % (37-53); Lymphocytes # 0.8 10^3/uL (0.8-4.8); Lymphocytes % 5.5 %; Mean Corpuscular HGB Conc 31.7 g/dL (30-55); Mean Corpuscular Volume 97.6 fl (82-101); Mean Platelet Volume 11.7 fL (7.4-10.4); Monocytes % 6.4 %; Neutrophils # 13.12 10^3/uL (1.8-7.7); Neutrophils % 87.2 %; Nucleated Red Blood Cells % 0 %; Platelet Count 282 10^3/cmm (157-399); Red Blood Count 3.39 10^6/uL (3.85-5.65); Red Cell Distribution Width 14.5 % (12.1-15.1); White Blood Count 15.05 10^3/uL (3.29-11.43)
[2023-12-14 05:51] LABS: Anion Gap 12.4 (5-19); Blood Urea Nitrogen 10 mg/dL (6-20); Calcium 8.4 mg/dL (8.5-10.5); Carbon Dioxide 24 mmol/L (22-29); Chloride 107 mmol/L (98-107); Creatinine Clr Calc Pharmacy 323.7185; Glomerular Filtration Rate 500.7 mL/min (90-130); Glucose 118 mg/dL (65-115); Osmolality Calculated 290 mOsm/kg (285-295); Potassium 3.4 mmol/L (3.5-5.1); Sodium 140 mmol/L (136-145)
[2023-12-14] MEDS: piperacillin-tazobactam 3.375 GM in sodium chloride 0.9% (plus) 50 ML IV ×3 (05:57→22:52)
--- NOTE | 2023-12-14 08:29 | P.CONIM_ITS ---
Providers/Reason For Consult 2 Consulting Physician/Specialty*: Rj Hdz MD FCCP/pulmonary critical care Reason for Consult*: Left lower lobe mucous plugging causing atelectasis and pneumonia Requesting Physician: Dr. Abbott Attending Physician: Cole Contreras MD Primary Care Provider: MORENO Ferrara History of Present Illness History of Present Illness Silvestre Espinosa is a 53 year old male with history of past medical history of ALS, chronically in a wheelchair, history of oropharyngeal dysphagia, failed swallow eval's, currently has a PEG in place with exclusive feeding via PEG tube. -being treated for recurrent left lower lobe pneumonia with several courses of Augmentin comes to emergency room for worsening cough shortness of breath again this week requiring BiPAP support through the day where he is previously using it only while sleeping, with fever up to 101 Fahrenheit. This admission 12/05/2023: In ER is also found to have leukocytosis 14.55. Tachycardia 115, otherwise baseline heart rate is 110. He had a chest CT done during admission showed progressive consolidation LEFT lower lobe with postobstructive atelectasis. There is a more focal irregular consolidation in the central LEFT lower lobe obstructing the bronchus. Cannot exclude neoplasm. These changes may all be due to pneumonia with mucous plugging. There are a few small mediastinal/hilar lymph nodes which have slightly increased in size since 10/16/2023. There is also new wedge-shaped consolidation in the posterior RIGHT upper lobe. Overall consolidation in the LEFT lower lobe may all be pneumonia with associated mucous plugging and atelectasis. With the increasing consolidation in the LEFT lower lobe continued concern for neoplasm. Aspiration pneumonia also a consideration. After admission patient had a CTA which showed worsening left lower lobe consolidation with occlusion of left lower bronchus with questionable endobronchial lesion. Pulmonary consult recommended for bronchoscopic inspection of airways and airway clearance. I have seen this patient when he admitted to hospital on 10/16/2023 for persistent left lower lobe infiltrate/pneumonia. He has been having this recurrent left lower lobe consolidation/mucous plugging causing atelectasis since August 2023 and was treated with several rounds of Augmentin. There was suspicion for endobronchial obstruction and underwent bronchoscopy 10/17/2023-found to have copious thick mucous plugs which were completely occluding left lower lobe airways, all the secretions were thoroughly suctioned and cleared the airways. Therapeutic bronchoscope was replaced with diagnostic bronchoscope and advanced further into left lower lobe segments and did not notice any endobronchial lesions. BAL cultures grew Streptococcus and patient was given levofloxacin. BAL Aspergillus, beta D glucan, blasto mitis antibodies, mycobacterial cultures, fungal cultures were all negative.. Overall due to his underlying ALS-patient is unable to expectorate effectively. Trial of chest vest and suction apparatus to see if it may help clear out his respiratory secretions, else this is likely to be a recurrent process given underlying risk factors. This patient is also currently on Entyvio for ulcerative colitis. He has been on this medication since 2019, having previously been on Remicade. There is no recent history of travel. No exotic pets at home. They have a pet dog and a few cats. 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 He has had several international rounds including those to the [place], [place] and [place]. He was serially tested on PPDs on many occasions in the , last tested 2009, has been negative on PPDs. Previously lived in [facility], moved to the [facility] in 2019. No known history of coccidiomycosis. Unfortunately patient did develop antibiotic associated diarrhea both times that he was on Augmentin, however tested negative for C. difficile. Diarrhea resolved after discontinuation of Augmentin. Of note history of C. difficile during the latter part of 2022, which appears to have currently resolved after treatment with Dificid. Today have seen Mr. Rivers and his at bedside. They reported that his cough is weak and has difficulty expectorating. They even got cough assistive device-but they do not have instructions on how to use it. Reported following up with ALS clinic in [facility]. Patient reported feeling short of breath and low-grade fever lately and hence came to ER. Review of Systems 2 General: Reports: 10 or more systems reviewed and unremarkable except in HPI and below Medications/Allergies Home Medications Medication Instructions Recorded Confirmed Last Taken Type riluzole 50 mg tablet 50 mg PO BID 04/24/20 12/13/23 12/13/23 History vedolizumab 300 mg intravenous 300 mg IV DIRECTED 04/24/20 11/07/23 07/11/23 History solution (Entyvio) sertraline 20 mg/mL oral 50 mg PO BEDTIME 05/16/23 12/13/23 1 Day Ago History concentrate (Zoloft) ~12/12/23 cetirizine 1 mg/mL oral solution 10 mg PO BEDTIME 10/16/23 12/13/23 1 Day Ago History ~12/12/23 acetaminophen 32 mg/mL oral See Rx Instructions .Route .COMPLEX 12/13/23 12/13/23 1 Day Ago History syringe (FOR ORAL USE ONLY) ~12/12/23 famotidine 40 mg/5 mL (8 mg/mL) 20 mg PO BEDTIME 12/13/23 12/13/23 1 Day Ago History oral suspension ~12/12/23 gabapentin 250 mg/5 mL oral 500 mg PO BEDTIME 12/13/23 12/13/23 1 Day Ago History solution ~12/12/23 guaifenesin 100 mg/5 mL oral liquid 400 mg PO QID 12/13/23 12/14/23 1 Day Ago History ~12/12/23 mometasone 50 mcg/actuation nasal 2 spray intranasal BEDTIME 12/13/23 12/13/23 1 Day Ago History spray (Nasonex 24hr Allergy) ~12/12/23 nortriptyline 10 mg/5 mL oral 30 mg PO BEDTIME 12/13/23 12/13/23 1 Day Ago History solution ~12/12/23 Allergies Allergy/AdvReac Type Severity Reaction Status Date / Time No Known Allergies Allergy Verified 12/13/23 20:12 Current Medications Generic Name Dose Route Start Last Admin Trade Name Freq PRN Reason Stop Dose Admin Acetaminophen 500 mg 12/14/23 00:19 12/14/23 00:52 Acetaminophen 650 Mg/20.3 Ml Udc PO 500 mg BEDTIME NED Administration Enoxaparin Sodium 40 mg 12/13/23 22:26 12/14/23 00:47 Enoxaparin 40 Mg/0.4 Ml Syringe SUBCUT 40 mg Q24H NED Administration Piperacillin Sod/Tazobactam 50 mls @ 12.5 mls/hr 12/14/23 06:00 12/14/23 05:57 Sod 3.375 gm/ Sodium Chloride IV 12.5 mls/hr Q8H NED Administration Protocol Vancomycin HCl 750 mg/ Sodium 250 mls @ 250 mls/hr 12/14/23 05:00 12/14/23 05:49 Chloride IV Infused Q8H NED Infusion Cetirizine 1 Mg/Ml 10 mg 12/13/23 23:24 12/14/23 00:47 Solution PO 10 mg BEDTIME NED Administration Nortriptyline 10 Mg/ 30 mg 12/14/23 00:00 12/14/23 00:48 5 Ml Solution PO 30 mg BEDTIME NED Administration Nasonex 24hr Allergy 2 spray 12/13/23 23:25 12/14/23 00:48 50 Mcg/Actuation INTRANASAL Not Given [place],Non-Aer BEDTIME NED Gabapentin 250 Mg/5 500 mg 12/13/23 23:24 12/14/23 00:47 Ml Solution PO 500 mg BEDTIME NED Administration Riluzole 50 Mg 50 mg 12/13/23 23:31 12/14/23 00:48 PEG-TUBE 50 mg BID NED Administration Non-Formulary Medication 50 mg 12/13/23 23:34 12/14/23 00:48 Sertraline Liquid PEG-TUBE 50 mg BEDTIME NED Administration Famotidine 40mg/5ml 20 mg 12/14/23 00:15 12/14/23 00:48 PO 20 mg BID NED Administration Guaifenesin 100 Mg/ 600 mg 12/14/23 00:19 12/14/23 00:49 5ml PO 600 mg QID NED Administration PFSH Acute 2 PFSH: Medical History C. difficile enteritis Ulcerative (chronic) enterocolitis ALS (amyotrophic lateral sclerosis) Surgical History History of oral surgery History of esophageal surgery Family History Denies family history of Diabetes Hypertension Social History Smoking and tobacco/nicotine status: never used tobacco/nicotine Alcohol intake: never Substance/Drug Use: never Vitals/I&O/Wt Last Vital Signs Temp 98.0 F 12/14/23 07:17 Pulse 96 12/14/23 07:17 Resp 18 12/14/23 07:17 BP 120/81 12/14/23 07:17 Pulse Ox 97 12/14/23 07:17 O2 Del Method CPAP 12/14/23 07:17 12/13/23 12/14/23 12/14/23 22:59 06:59 14:59 Intake Total 800 / 800 1250 / 0 Balance 800 / 800 1250 / 0 Weight last 48 hrs Weight 118 lb 2 oz Weight 118 lb 2 oz Weight 114 lb 12.8 oz Weight 103 lb Physical Exam 2 Narrative: General: alert, NAD, sitting in motorized wheelchair HEENT: conj clear, EOMI, PERRL, mmm, Neck: supple, no meningismus Heme: no cervical LAP Respiratory: Inspection: No visible deformity of the chest wall Palpation: Trachea is mildly deviated to the right, bilateral symmetric expansion Percussion: Bilateral tympanic percussion note both anterior and posteriorly Auscultation: Reduced breath sounds left lower lung zone Cardiovascular: rrr, nl s1s2, no mrg Abdomen: soft, nt, nd, no r/g, bs+ Extremities: pulses +, no edema, no c/c : no CVA tenderness Skin: intact, no rash MSK: no back or neck pain Neurologic: Chronically wheelchair-bound with minimal motor activity Data 12/14/23 04:23 12/14/23 04:23 Other Labs: Radiology Impressions Chest X-Ray 12/13/23 20:09 IMPRESSION: 1. Left basilar airspace opacities concerning for pneumonia. Laboratory Results WBC 15.05 10^3/uL (3.29-11.43) H 12/14/23 04:23 RBC 3.39 10^6/uL (3.85-5.65) L 12/14/23 04:23 Hgb 10.50 g/dL (11.27-16.99) L 12/14/23 04:23 Hct 33.1 % (37-53) L 12/14/23 04:23 MCV 97.6 fl (82-101) 12/14/23 04:23 MCH 31.0 pg (27-33) 12/14/23 04:23 MCHC 31.7 g/dL (30-55) 12/14/23 04:23 RDW 14.5 % (12.1-15.1) 12/14/23 04:23 Plt Count 282 10^3/cmm (157-399) 12/14/23 04:23 MPV 11.7 fL (7.4-10.4) H 12/14/23 04:23 Neut % (Auto) 87.2 % 12/14/23 04:23 Lymph % (Auto) 5.5 % 12/14/23 04:23 [place] % (Auto) 6.4 % 12/14/23 04:23 Eos % (Auto) 0.3 % 12/14/23 04:23 Baso % (Auto) 0.2 % 12/14/23 04:23 Neut # (Auto) 13.12 10^3/uL (1.8-7.7) H 12/14/23 04:23 Lymph # (Auto) 0.8 10^3/uL (0.8-4.8) 12/14/23 04:23 [place] # (Auto) 1.0 10^3/uL (0.2-0.9) H 12/14/23 04:23 Eos # (Auto) 0.0 10^3/uL (0.0-0.8) 12/14/23 04:23 Baso # (Auto) 0.0 10^3/uL (0.0-0.1) 12/14/23 04:23 Nucleated RBC % (auto) 0 % 12/14/23 04:23 Nucleated RBCs # 0.0 /100WBC 12/14/23 04:23 Sodium 140 mmol/L (136-145) 12/14/23 04:23 Potassium 3.4 mmol/L (3.5-5.1) L 12/14/23 04:23 Chloride 107 mmol/L (98-107) 12/14/23 04:23 Carbon Dioxide 24 mmol/L (22-29) 12/14/23 04:23 Anion Gap 12.4 (5-19) 12/14/23 04:23 BUN 10 mg/dL (6-20) 12/14/23 04:23 Creatinine 0.2 mg/dL (0.7-1.2) L 12/14/23 04:23 GFR Calculation 500.7 mL/min (90-130) H 12/14/23 04:23 Glucose 118 mg/dL (65-115) H 12/14/23 04:23 Calculated Osmolality 290 mOsm/kg (285-295) 12/14/23 04:23 Lactic Acid 1.9 mmol/L (0.5-2.2) 12/13/23 20:44 Calcium 8.4 mg/dL (8.5-10.5) L 12/14/23 04:23 Total Bilirubin 0.2 mg/dL (0.15-1.2) 12/13/23 20:44 AST 25 U/L (0-40) 12/13/23 20:44 ALT 21 U/L (0-41) 12/13/23 20:44 Alkaline Phosphatase 106 U/L (40-130) 12/13/23 20:44 NT-Pro-B Natriuret Pep 88 pg/mL (0-125) 12/13/23 20:44 Total Protein 7.8 g/dL (6.6-8.7) 12/13/23 20:44 Albumin 4.1 g/dL (3.5-5.2) 12/13/23 20:44 Globulin 3.7 g/dL (1.3-4.6) 12/13/23 20:44 Adenovirus (PCR) Not detected (NOT DETECT) 12/13/23 21:43 C. pneumoniae DNA (PCR) Not detected (NOT DETECT) 12/13/23 21:43 Coronavirus 229E (PCR) Not detected (NOT DETECT) 12/13/23 21:43 Human Metapneumovir PCR Not detected (NOT DETECT) 12/13/23 21:43 Influenza A (H1) PCR Not detected (NOT DETECT) 12/13/23 21:43 Influ A (H1/09) PCR Not detected (NOT DETECT) 12/13/23 21:43 Influenza A (H3) PCR Not detected (NOT DETECT) 12/13/23 21:43 Influenza Type A (PCR) Not detected (NOT DETECT) 12/13/23 21:43 Influenza Type B (PCR) Not detected (NOT DETECT) 12/13/23 21:43 M. pneumoniae (PCR) Not detected (NOT DETECT) 12/13/23 21:43 Parainfluenza 1 (PCR) Not detected (NOT DETECT) 12/13/23 21:43 Parainfluenza 2 (PCR) Not detected (NOT DETECT) 12/13/23 21:43 Parainfluenza 3 (PCR) Not detected (NOT DETECT) 12/13/23 21:43 Parainfluenza 4 (PCR) Not detected (NOT DETECT) 12/13/23 21:43 RSV Type A (PCR) Not detected (NOT DETECT) 12/13/23 21:43 RSV Type B (PCR) Not detected (NOT DETECT) 12/13/23 21:43 Entero/Rhino (PCR) Not detected (NOT DETECT) 12/13/23 21:43 SARS-CoV-2 (PCR) Not detected (NOT DETECT) 12/13/23 21:43 Micro: Microbiology 12/13/23 21:21 Blood Culture - Preliminary Blood SPECIMEN COLLECTED 12/13/23 21:10 Blood Culture - Preliminary Blood SPECIMEN COLLECTED A&P Assessment and plan (1) Left lower lobe consolidation: (2) Recurrent pneumonia: (3) ALS (amyotrophic lateral sclerosis): (4) At risk for aspiration: (5) Weak cough: Plan # Recurrent left lower lobe pneumonia with persistent atelectasis # At high risk for aspiration due to underlying ALS -Received at least 3 rounds of Augmentin since July 2023 with 1 hospitalization in October 2023 -S/p bronchoscopy 10/17/2023-found to have copious thick mucous plugs which were completely occluding left lower lobe airways, all the secretions were thoroughly suctioned and cleared the airways. Therapeutic bronchoscope was replaced with diagnostic bronchoscope and advanced further into left lower lobe segments and did not notice any endobronchial lesions. BAL cultures grew Streptococcus and patient was given levofloxacin. BAL Aspergillus, beta D glucan, blasto mitis antibodies, mycobacterial cultures, fungal cultures were all negative. -Overall due to his underlying ALS-patient is unable to expectorate effectively. Trial of chest vest and suction apparatus to see if it may help clear out his respiratory secretions, else this is likely to be a recurrent process given underlying risk factors. -they even got cough assistive device-but they do not have instructions on how to use it. Recommended to bring device to the hospital and so We can teach -This admission again CT imaging suggestive of worsening left lower lobe consolidation with questionable endobronchial mucous plug/lesion -Plan for bronchoscopic inspection of airways, mucus clearance, possible endobronchial biopsies -Will obtain BAL and sent for various studies. - # ALS -Uses noninvasive ventilator at nighttime Consult Attestations 2 Medical Necessity Statement: Plan for bronchoscopy tomorrow Time Spent in Patient Care: Greater than 35 minutes (>than 50% of time spent in counselling and/or direct pt care on unit) . Coding Level of Care Code Acute Code for Chg Fwd Diagnoses Left lower lobe consolidation J18.1 Recurrent pneumonia J18.9 ALS (amyotrophic lateral sclerosis) G12.21 At risk for aspiration Z91.89 Weak cough R05.8 Time Spent (min) 47
--- NOTE | 2023-12-14 13:16 | ANES.PREANE2 ---
Pre-Anesthetic Assessment Height/Weight: Height 1.75 m Weight 53.581 kg Temp Pulse Resp BP Pulse Ox O2 Del Method 98.0 F 120 H 20 H 120/81 94 Room Air 12/14/23 07:17 12/14/23 10:10 12/14/23 10:10 12/14/23 07:17 12/14/23 10:10 12/14/23 10:10 Operation Date: 12/15/23 07:00 Proposed Procedures p Bronchoscopy Bronchoscopy For Airway Clearence/Foreign Body Removal(Not Applicable) - Rj Menjivar DataMD alysia Familial anesthetic complications: None Was Beta Fátima taken within 24 hours: N/A Was Clonidine taken within 24 hours: N/A Last intake: > 8 hrs Social No alcohol and No tobacco Exam alert, oriented x 3, clear to auscultation bilaterally and regular rate & rhythm Nasal CPAP Airway Dentition: full Comments: Comments: small mouth opening Pulmonary recurrent aspriration GI PEG Neuropsych ALS Anesthetic Plan ASA status: 4 Anesthesia: General Risk of > 500 ml blood loss (7ml/kg in children): No Medications/Allergies Home Medications Medication Instructions Recorded Confirmed Last Taken Type riluzole 50 mg tablet 50 mg PO BID 04/24/20 12/13/23 12/13/23 History vedolizumab 300 mg intravenous 300 mg IV DIRECTED 04/24/20 11/07/23 07/11/23 History solution (Entyvio) sertraline 20 mg/mL oral 50 mg PO BEDTIME 05/16/23 12/13/23 1 Day Ago History concentrate (Zoloft) ~12/12/23 cetirizine 1 mg/mL oral solution 10 mg PO BEDTIME 10/16/23 12/13/23 1 Day Ago History ~12/12/23 acetaminophen 32 mg/mL oral See Rx Instructions .Route .COMPLEX 12/13/23 12/13/23 1 Day Ago History syringe (FOR ORAL USE ONLY) ~12/12/23 famotidine 40 mg/5 mL (8 mg/mL) 20 mg PO BEDTIME 12/13/23 12/13/23 1 Day Ago History oral suspension ~12/12/23 gabapentin 250 mg/5 mL oral 500 mg PO BEDTIME 12/13/23 12/13/23 1 Day Ago History solution ~12/12/23 guaifenesin 100 mg/5 mL oral liquid 400 mg PO QID 12/13/23 12/14/23 1 Day Ago History ~12/12/23 mometasone 50 mcg/actuation nasal 2 spray intranasal BEDTIME 12/13/23 12/13/23 1 Day Ago History spray (Nasonex 24hr Allergy) ~12/12/23 nortriptyline 10 mg/5 mL oral 30 mg PO BEDTIME 12/13/23 12/13/23 1 Day Ago History solution ~12/12/23 Allergies Allergy/AdvReac Type Severity Reaction Status Date / Time No Known Allergies Allergy Verified 12/13/23 20:12 Current Medications Generic Name Dose Route Start Last Admin Trade Name Freq PRN Reason Stop Dose Admin Acetaminophen 500 mg 12/14/23 00:19 12/14/23 10:56 Acetaminophen 650 Mg/20.3 Ml Udc PO 500 mg BEDTIME NED Administration Enoxaparin Sodium 40 mg 12/13/23 22:26 12/14/23 00:47 Enoxaparin 40 Mg/0.4 Ml Syringe SUBCUT 40 mg Q24H NED Administration Piperacillin Sod/Tazobactam 50 mls @ 12.5 mls/hr 12/14/23 06:00 12/14/23 10:05 Sod 3.375 gm/ Sodium Chloride IV Infused Q8H NED Infusion Protocol Vancomycin HCl 750 mg/ Sodium 250 mls @ 250 mls/hr 12/14/23 05:00 12/14/23 05:49 Chloride IV Infused Q8H NED Infusion Cetirizine 1 Mg/Ml 10 mg 12/13/23 23:24 12/14/23 00:47 Solution PO 10 mg BEDTIME NED Administration Nortriptyline 10 Mg/ 30 mg 12/14/23 00:00 12/14/23 00:48 5 Ml Solution PO 30 mg BEDTIME NED Administration Nasonex 24hr Allergy 2 spray 12/13/23 23:25 12/14/23 00:48 50 Mcg/Actuation INTRANASAL Not Given [place],Non-Aer BEDTIME NED Gabapentin 250 Mg/5 500 mg 12/13/23 23:24 12/14/23 00:47 Ml Solution PO 500 mg BEDTIME NED Administration Riluzole 50 Mg 50 mg 12/13/23 23:31 12/14/23 10:58 PEG-TUBE 50 mg BID NED Administration Non-Formulary Medication 50 mg 12/13/23 23:34 12/14/23 00:48 Sertraline Liquid PEG-TUBE 50 mg BEDTIME NED Administration Famotidine 40mg/5ml 20 mg 12/14/23 00:15 12/14/23 00:48 PO 20 mg BID NED Administration Guaifenesin 100 Mg/ 600 mg 12/14/23 00:19 12/14/23 12:46 5ml PO Not Given QID NED Sodium Chloride 4 ml 12/14/23 08:00 12/14/23 11:38 Sodium Chloride 3.5% Neb 4 Ml Neb INHALATION Not Given BID.[facility] Anesthesia Medical History C. difficile enteritis Ulcerative (chronic) enterocolitis ALS (amyotrophic lateral sclerosis) Surgical History History of oral surgery History of esophageal surgery Family History Denies family history of Diabetes Hypertension Social History Smoking and tobacco/nicotine status: never used tobacco/nicotine Alcohol intake: never Substance/Drug Use: never Data Anesthesia 12/14/23 04:23 12/14/23 04:23 Short CBC 12/13/23 12/14/23 Range/Units 20:44 04:23 WBC 14.55 H 15.05 H (3.29-11.43) 10^3/uL Hgb 12.10 10.50 L (11.27-16.99) g/dL Hct 37.4 33.1 L (37-53) % MCV 93.7 97.6 (82-101) fl Plt Count 306 282 (157-399) 10^3/cmm Neut % (Auto) 87.3 87.2 % Neut # (Auto) 12.71 H 13.12 H (1.8-7.7) 10^3/uL BMP 12/13/23 12/14/23 20:44 04:23 Sodium 138 140 Potassium 4.0 3.4 L Chloride 99 107 Carbon Dioxide 27 24 BUN 12 10 Creatinine 0.2 L 0.2 L Glucose 163 H 118 H Calcium 8.9 8.4 L Cardiac Enzymes 12/13/23 Range/Units 20:44 NT-Pro-B Natriuret Pep 88 (0-125) pg/mL Liver Function 12/13/23 Range/Units 20:44 Total Bilirubin 0.2 (0.15-1.2) mg/dL AST 25 (0-40) U/L ALT 21 (0-41) U/L Alkaline Phosphatase 106 (40-130) U/L Albumin 4.1 (3.5-5.2) g/dL COVID Results 12/13/23 21:43 Coronavirus 229E (PCR) Not detected SARS-CoV-2 (PCR) Not detected Microbiology 12/14/23 09:04 Bacterial Antigens - Final Urine,Voided 12/13/23 21:21 Blood Culture - Preliminary Blood SPECIMEN COLLECTED 12/13/23 21:10 Blood Culture - Preliminary Blood SPECIMEN COLLECTED Cardiac Studies: No Data to Display
[2023-12-14] MEDS: ipratropium-albuterol 3 mL Neb INHALATION ×2 (14:45→20:56)
[2023-12-14] MEDS: acetylcysteine 200 mg/mL SDV 4 mL 100 MG INHALATION ×2 (14:45→20:56)
--- NOTE | 2023-12-14 14:47 | P.PN_ITS ---
Subjective 2 Subjective: Admitted overnight. H&P and labs appreciated. On examination patient seen sitting up in the room. Currently on his home trilogy. Denies any nausea, ting, headache. States breathing is slightly more difficult than baseline currently. Saturating well on Trelegy for now. Heart rate slightly elevated. Vitals/I&O/Wt Last Vital Signs Temp 98.0 F 12/14/23 07:17 Pulse 120 H 12/14/23 10:10 Resp 20 H 12/14/23 10:10 BP 120/81 12/14/23 07:17 Pulse Ox 94 12/14/23 10:10 O2 Del Method Room Air 12/14/23 10:10 12/13/23 12/14/23 12/14/23 22:59 06:59 14:59 Intake Total 800 / 800 1250 / 0 50 / 50 Output Total 100 / 100 Balance 800 / 800 1250 / 0 -50 / -50 Weight last 48 hrs Weight 53.581 kg Weight 53.581 kg Weight 52.072 kg Weight 46.72 kg Physical Exam 2 Const: COMMON NORMALS: patient oriented x3 and alert GENERAL APPEARANCE: c ooperative ORIENTATION/CONSCIOUSNESS: Yes awake HENMT: COMMON NORMALS: oropharynx normal Neck/C-Spine: COMMON NORMALS: no JVD Resp: COMMON NORMALS: normal respiratory effort and clear to auscultation bilaterally AUSCULTATION: clear to auscultation bilaterally Cardio: COMMON NORMALS: no JVD, regular rhythm, S1 normal heart sound present, S2 normal heart sound present and No murmurs present (Cardio) RHYTHM: regular rhythm HEART SOUNDS: S1 normal heart sound present and S2 normal heart sound present GI: COMMON NORMALS: Normal to inspection, nondistended, normoactive bowel sounds present, Soft to palpation and non-tender PALPATION: Yes Soft to palpation Extremity: COMMON NORMALS: no joint enlargement and no pedal edema Neuro: COMMON NORMALS: patient oriented x3 and moves all extremities S ENSORIUM/ORIENTATION: Yes alert Skin: COMMON NORMALS: no rashes or lesions noted GENERAL SKIN EXAM: no rashes or lesions noted Data 12/14/23 04:23 12/14/23 04:23 Micro: Microbiology 12/14/23 09:04 Bacterial Antigens - Final Urine,Voided 12/13/23 21:21 Blood Culture - Preliminary Blood SPECIMEN COLLECTED 12/13/23 21:10 Blood Culture - Preliminary Blood SPECIMEN COLLECTED A&P Assessment and plan (1) Recurrent pneumonia: Likely in setting of aspiration leading to mucous plugging. Aspiration of secretions most likely. Patient does consume liquids by mouth. Will advise patient to be strict n.p.o. and discontinue on tube feeds going forward. Check MRSA swab, urine Legionella, bacterial antigen pending. History of group F strep in [facility] culture in the past. For now continue with IV Zosyn and vancomycin. Respiratory viral panel negative. Check NIF daily. DuoNebs every 6 hour, Mucomyst every 6 hour, Pulmicort twice daily. Aggressive pulmonary toilet with chest vest. Will request patient to get CoughAssist device from home and see if can be taught how to use. Oxygen supplementation keeping saturation over 90%. Appreciate pulmonary recommendations. Plan for bronchoscopy and lavage along with cultures in AM. N.p.o. after midnight. Hold tube feeds after midnight. (2) Left lower lobe consolidation: As above (3) Sepsis: Sepsis without endorgan injury, with leukocytosis 14.5, fever 101, sinus tachycardia 115, although his baseline heart rate is in the 100 usually due to ALS. Blood cultures have been collected. Lactic acid is normal. Antibiotics as above for treatment of pneumonia. Plan ALS: Continue patient's riluzole if it can be brought in. NPO. Tube feeds, his family going to bring his own tube feeds from home. Please reorder once available in the morning. NIF daily. History of ulcerative colitis History of C. difficile colitis: Had diarrhea with prior course of antibiotics which had just resolved. Monitor for recurrence of diarrhea. At risk of recurrent C. difficile colitis with repeat antibiotic course. Monitor for diarrhea. Full code Tube feeds Lovenox for DVT prophylaxis Famotidine for PUD prophylaxis Attestations 2 Medical Necessity Statement*: Requires further hospitalization for management of shortness of breath in setting of aspiration pneumonia, mucous plugging in a patient with history of baseline ALS while bronchoscopy is awaited Diagnoses Recurrent pneumonia J18.9 Left lower lobe consolidation J18.1 Sepsis A41.9
[2023-12-14] MEDS: acetaminophen 650 mg/20.3 mL UDC PO ×2 (17:38→21:08)
--- NOTE | 2023-12-14 18:10 | PC.RESP ---
pt was unable to perform NIF. he was unable to complete a seal with his mouth.
[2023-12-14] MEDS: budesonide 0.5 mg/2 mL Neb INHALATION (20:56)
[2023-12-14] MEDS: sodium chloride 3.5% neb 4 mL Neb INHALATION (21:01)
[2023-12-15] VITALS (16 sets, daily range): BP systolic 99–130; BP diastolic 63–84; PULSE 98–116; RESP 14–24; TEMP 36.3–38.1; O2SAT 93–97
[2023-12-15] MEDS: vancomycin 750 MG in sodium chloride 0.9% 250 ML 250 MG IV (04:08)
[2023-12-15] MEDS: piperacillin-tazobactam 3.375 GM in sodium chloride 0.9% (plus) 50 ML IV (05:15)
[2023-12-15 05:26] LABS: Basophils % 0.2 %; Eosinophils # 0.1 10^3/uL (0.0-0.8); Eosinophils % 0.5 %; Hematocrit 31.6 % (37-53); Lymphocytes # 1.4 10^3/uL (0.8-4.8); Lymphocytes % 10.6 %; Mean Corpuscular Hemoglobin 30.3 pg (27-33); Mean Corpuscular Volume 94.9 fl (82-101); Mean Platelet Volume 11.3 fL (7.4-10.4); Monocytes % 7.4 %; Neutrophils # 10.78 10^3/uL (1.8-7.7); Nucleated Red Blood Cells % 0 %; Platelet Count 308 10^3/cmm (157-399); Red Blood Count 3.33 10^6/uL (3.85-5.65); Red Cell Distribution Width 14.6 % (12.1-15.1); White Blood Count 13.31 10^3/uL (3.29-11.43)
[2023-12-15 05:41] LABS: Alanine Aminotransferase 17 U/L (0-41); Albumin Level 3.1 g/dL (3.5-5.2); Alkaline Phosphatase 90 U/L (40-130); Anion Gap 14.4 (5-19); Aspartate Amino Transferase 14 U/L (0-40); Blood Urea Nitrogen 10 mg/dL (6-20); Calcium 8.6 mg/dL (8.5-10.5); Carbon Dioxide 27 mmol/L (22-29); Chloride 106 mmol/L (98-107); Creatinine Clr Calc Pharmacy 335.4333; Globulin 3.1 g/dL (1.3-4.6); Glomerular Filtration Rate 500.7 mL/min (90-130); Glucose 96 mg/dL (65-115); Osmolality Calculated 297 mOsm/kg (285-295); Potassium 3.4 mmol/L (3.5-5.1); Sodium 144 mmol/L (136-145); Total Bilirubin 0.4 mg/dL (0.15-1.2); Total Protein 6.2 g/dL (6.6-8.7)
[2023-12-15] MEDS: sodium chloride 0.9% 1,000 ML 30 ML IV (07:08)
[2023-12-15] MEDS: lidocaine 1% INJ 10 mL (per mL) XX (07:37)
--- NOTE | 2023-12-15 07:59 | XR_ITS ---
WS: [id number] Exam: XR chest 1V portable [id number] Date/Time of Exam: 12/15/2023 8:05 AM Reason For Exam: post bronchoscopy Comparison 12/13/2023. Increasing infiltrate in the LEFT lower lobe and atelectasis. The RIGHT lung is clear. Normal cardiom ediastinal silhouette. No pneumothorax. Regional bony elements are intact. IMPRESSION1. Increasing infiltrate and atelectasis in the LEFT lower lobe since previous exam.
--- NOTE | 2023-12-15 08:35 | PM.OP ---
Operative Report Date of procedure: December 15, 2023 Pre-op diagnosis: Mucous plugging causing left lower lobe atelectasis-suspect pneumonia Post-op diagnosis: same Procedure done: 60922-Kc Bronchoscope w/Washings or airway inspection 73364--Nx Bronchoscope w/BAL [id number] w/ therapeutic aspiration of the tracheobronchial tree (clearance of airway secretions, removal of mucus plugs) Surgeon: Rj Hdz MD Brief History: Silvestre Espinosa is a 53 year old male with history of past medical history of ALS, chronically in a wheelchair, history of oropharyngeal dysphagia, failed swallow eval's, currently has a PEG in place with exclusive feeding via PEG tube. -being treated for recurrent left lower lobe pneumonia with several courses of Augmentin comes to emergency room for worsening cough shortness of breath again this week. After admission patient had a CTA which showed worsening left lower lobe consolidation with occlusion of left lower bronchus with questionable endobronchial lesion. Pulmonary consult recommended for bronchoscopic inspection of airways and airway clearance. Procedure: 92230-Ot Bronchoscope w/Washings or airway inspection 75899--Dn Bronchoscope w/BAL [id number] w/ therapeutic aspiration of the tracheobronchial tree (clearance of airway secretions, removal of mucus plugs) Pre-Operative Diagnosis: Mucous plugging causing persistent left lower lobe atelectasis Post-Operative Diagnosis: Same Indication: CT evidence of persistent left lower lobe atelectasis likely secondary to endobronchial obstruction/mucous plugging Anesthesia: General anesthesia. Local anesthesia: The macie in the right and left mainstem bronchi were anesthetized with 1% lidocaine, 3 mL. Description of the procedure: The procedure was explained to the patient and the consent was obtained. The patient was brought to the OR. The patient underwent induction for general anesthesia and laryngeal mask airway (LMA) was placed. The bronchoscope was advanced through the LMA. Vocal cords are mobile. 1% lidocaine 1 mL instilled over the vocal cords. The bronchoscope was passed through the vocal cords into the trachea. Tracheal mucosa appeared normal, no endotracheal lesion was seen. The macie was sharp. 1 mL each of 1% lidocaine was instilled in the trachea the right and left mainstem bronchi for local anesthesia. In a systematic manner bilateral bronchial tree was then examined. The bronchoscope was then introduced into the right mainstem bronchus. The right upper lobe, right middle lobe and right lower lobe bronchi were examined up to the third subsegmental level and no abnormalities were identified. The mucosa appeared normal with no endobronchial lesions, active bleeding or mucous plugs.There were clear secretions which were suctioned right away. The bronchoscope was advanced into the left mainstem bronchus. There was some thick mucus secretions throughout left airway which were suctioned. The left upper lobe, and lingula were examined up to the third subsegmental level and no abnormalities were identified. There were copious thick mucous plugs which completely occluding left lower lobe airway, all the secretions were thoroughly suctioned and cleared the airways. Therapeutic bronchoscope was replaced with diagnostic bronchoscope and advanced further into left lower lobe segments and did not notice any endobronchial lesions. Bronchoalveolar lavage was taken near left lower lobe Samples: 1. Bronchoalveolar lavage was performed after wedging the bronchoscope at the entrance of medial segment of left lower lobe. 60 mL of saline was instilled, fluid return was 20 mL. Bronchoalveolar lavage specimen was sent for cell count and differential, gram stain and culture, cytology, fungal cultures, Complications: None.The patient was extubated and brought to the PACU in stable condition. Disposition: Patient can be discharged home in stable condition from pulmonary standpoint-encouraged to use incentive spirometry, chest vest. Pt and his are aware that I am going to call them with the results.
[2023-12-15 08:39] LABS: Cyto Order Verification Order Verified
[2023-12-15 08:40] LABS: Apprearance, Bronch Wash Cloudy (CLEAR); Color, Bronc Wash White; PATH Referral Yes
--- NOTE | 2023-12-15 08:48 | PC.SOCIAL ---
IMM Updated Updated pt & on IMM. No questions voiced. Provided pt a copy. Initialed, dated, & timed a copy & placed in chart.
--- NOTE | 2023-12-15 08:55 | ANE.PACU2 ---
Inpatient post-anesthesia follow up: Airway intact: Yes Vital signs: Temperature 98.7 F Pulse Rate 114 Respiratory Rate 17 Blood Pressure 110/66 Pulse Oximetry 93 Oxygen Delivery Me thod Room Air Oxygen Flow Rate 0 Fraction of Inspir ed Oxygen Hydration adequate: Yes Nausea and vomiting: No Pain level: 1 Mental status: Baseline
--- NOTE | 2023-12-15 09:06 | PC.CHAP ---
Pastoral Care Encounter/Spiritual Assessment Type of Contact [] Declined equal opportunity representative visit [] Patient/Family/Request visit [] Outpatient visit [] Follow-up visit [] Physician referral [] Code/Alert [] Routine visit [] Staff referral [] Actively dying [] Patient sleeping [] Family support [] [x] Out of room [] Palliative care [] [] Receiving care in room [] Pre-surgical visit [] Trauma [] Long length of stay [] ICU visit [] Other: Relational/Emotional Strength [] Patient feels connected with others/family/visitors/staff [] Distress [] Loneliness/isolation [] Abandonment Spirituality of Patient [] Person of Avis [] Attends Church of their Avis [] Believes in Prayer [] Reads Bible or Baptist materials [] There are Spiritual issues to be addressed [employer] Interventions [] Prayer [] Active listening [] Non-anxious presence [] Spiritual/emotional support [] Crisis/trauma care [] Spiritual counseling [] Bereavement support [] Provided bereavement packet [] Provided Bible/devotional materials [] Provided toy/stuffed animal, coloring book to patient or family member [] Provided Communion [] Anointing/[place] [] Salvation [] Completed spiritual assessment [] Other: Impact on Illness or Injury [] Angry [] Fearful [] Anxious [] Often cries [] Exhaustion [] Unable to work [] Unable to attend yazdanism [] Unable to walk/stand [] Unable to read [] Unable to drive [] Unable to eat/drink [] Unable to sleep [] Unable to be with family [] Patient intubated [] Other: Summary Time spent with patient
[2023-12-15 10:58] LABS: Total Cells Counted Bronch 200
--- NOTE | 2023-12-15 11:18 | P.DS_ITS ---
Discharge Providers Date of Admission: 12/13/23 21:18 Date of Discharge: December 15, 2023 Attending Provider at Admission: Isaías Abbott Attending Provider at Discharge: Cole Contreras MD Primary Care Provider: MORENO Ferrara Diagnoses at Discharge Discharge Diagnosis (1) Left lower lobe consolidation: Status: Acute (2) Recurrent pneumonia: Status: Acute (3) ALS (amyotrophic lateral sclerosis): Status: Acute (4) At risk for aspiration: Status: Acute (5) Weak cough: Status: Acute Reason for Visit Reason for Visit: O2 Low Fever Brief History: History as per HPI: Very pleasant 53-year-old gentleman with ALS with recent admission after a persistent left lower lobe infiltrate, pneumonia, postobstructive pneumonia with mucous plugging, concern expressed regarding lower possibility of airway obstructing mass, he underwent bronchoscopy at that time with clearing of thick secretions plugging the airways, was treated with antibiotic and steroid. He is unable to effectively expectorate due to ALS, arrangements have been made for LifeVest, suction device at home, although he states he can only suction his mouth with a cannot go to the back of the mouth, also had a CoughAssist device brought to his home, however, his states that it could not effectively produce a cough during the demonstration, and seems they are not 100% sure that they know to use it correctly due to that. He for the most part is n.p.o. with tube feeds, however, does still drink sips of water. He presents to the hospital with worsening dyspnea, requiring BiPAP support through the day where he is previously using it only while sleeping, with fever up to 101 Fahrenheit, in ER also found to have leukocytosis 14.55. Tachycardia 115, otherwise baseline heart rate is 110. He had a chest CT done this afternoon: 1. Progressive consolidation LEFT lower lobe with postobstructive atelectasis. There is a more focal irregular consolidation in the central LEFT lower lobe obstructing the bronchus. Cannot exclude neoplasm. These changes may all be due to pneumonia with mucous plugging. 2. There are a few small mediastinal/hi lar lymph nodes which have slightly increased in size since 10/16/2023. 3. New wedge-shaped consolidation in th e posterior RIGHT upper lobe. 4. Consolidation in the LEFT lower lobe may all be pneumonia with associated mucous plugging and atelectasis. With the increasing consolidation in the LEFT lower lobe continued concern for neoplasm. Aspiration pneumonia also a consideration. Hospital Course Hospital Course Patient was admitted to the hospital further evaluation and management of hypoxic respiratory failure in setting of recurrent pneumonia in setting of aspiration leading to mucous plugging. Pulmonology was consulted. He was started on broad-spectrum antibiotics. He underwent bronchoscopy on 12/14 and copious thick mucus plugs were suctioned. During hospitalization patient's cultures remain negative. Fluid cultures from BAL has been sent out. Patient was counseled in detail to minimize his oral intake. He is advised to continue his PEG tube feeds. He has been discharged hemodynamically stable condition on Mucomyst and hypertonic saline nebulization. CoughAssist machine has been set up for the patient. He is to take oral Augmentin and Levaquin for next 5 days. If there are any changes in the cultures of the BAL patient will be called up. Patient should see a pulmonary team at [facility] in [place]. Physical Exam Const: COMMON NORMALS: patient oriented x3 and alert GENERAL APPEARANCE: cooperative ORIENTATION/CONSCIOUSNESS: Yes awake HENMT: COMMON NORMALS: oropharynx normal Neck/C-Spine: COMMON NORMALS: no JVD Resp: COMMON NORMALS: normal respiratory effort and clear to auscultation bilaterally AUSCULTATION: clear to auscultation bilaterally Cardio: COMMON NORMALS: no JVD, regular rhythm, S1 normal heart sound present, S2 normal heart sound present and No murmurs present (Cardio) RHYTHM: regular rhythm HEART SOUNDS: S1 normal heart sound present and S2 normal heart sound present GI: COMMON NORMALS: Normal to inspection, nondistended, normoactive bowel sounds present, Soft to palpation and non-tender PALPATION: Yes Soft to palpation Extremity: COMMON NORMALS: no joint enlargement and no pedal edema Neuro: COMMON NORMALS: patient oriented x3 and moves all extremities SE NSORIUM/ORIENTATION: Yes alert Skin: COMMON NORMALS: no rashes or lesions noted GENERAL SKIN EXAM: no rashes or lesions noted Discharge Data Studies Completed and Pending Completed Studies During Hospitalization Category Date Time Status CXRP [XR chest 1V portable [id number]] Stat Exams 12/13/23 20:09 Completed XR chest 1V portable [id number] Routine Exams 12/15/23 07:59 Completed Pending at discharge Category Date Time Status Blood Culture Stat Lab 12/13/23 21:21 Results Bronchoalv Lavage Culture & GS Routine Lab 12/15/23 07:40 Results Complete Blood Count w/Auto AM LABS Lab 12/16/23 04:00 Ordered Fungal Culture not HR/SK/BL Routine Lab 12/15/23 07:40 Received MRSA [Methicillin Resistant S.aureu] Routine Lab 12/13/23 22:40 Received Cytology [PTH] Routine Pth 12/15/23 07:40 Received Laboratory Results WBC 13.31 10^3/uL (3.29-11.43) H 12/15/23 04:29 RBC 3.33 10^6/uL (3.85-5.65) L 12/15/23 04:29 Hgb 10.10 g/dL (11.27-16.99) L 12/15/23 04:29 Hct 31.6 % (37-53) L 12/15/23 04:29 MCV 94.9 fl (82-101) 12/15/23 04:29 MCH 30.3 pg (27-33) 12/15/23 04:29 MCHC 32.0 g/dL (30-55) 12/15/23 04:29 RDW 14.6 % (12.1-15.1) 12/15/23 04:29 Plt Count 308 10^3/cmm (157-399) 12/15/23 04:29 MPV 11.3 fL (7.4-10.4) H 12/15/23 04:29 Neut % (Auto) 81.0 % 12/15/23 04:29 Lymph % (Auto) 10.6 % 12/15/23 04:29 [place] % (Auto) 7.4 % 12/15/23 04:29 Eos % (Auto) 0.5 % 12/15/23 04:29 Baso % (Auto) 0.2 % 12/15/23 04:29 Neut # (Auto) 10.78 10^3/uL (1.8-7.7) H 12/15/23 04:29 Lymph # (Auto) 1.4 10^3/uL (0.8-4.8) 12/15/23 04:29 [place] # (Auto) 1.0 10^3/uL (0.2-0.9) H 12/15/23 04:29 Eos # (Auto) 0.1 10^3/uL (0.0-0.8) 12/15/23 04:29 Baso # (Auto) 0.0 10^3/uL (0.0-0.1) 12/15/23 04:29 Nucleated RBC % (auto) 0 % 12/15/23 04:29 Nucleated RBCs # 0.0 /100WBC 12/15/23 04:29 Sodium 144 mmol/L (136-145) 12/15/23 04:29 Potassium 3.4 mmol/L (3.5-5.1) L 12/15/23 04:29 Chloride 106 mmol/L (98-107) 12/15/23 04:29 Carbon Dioxide 27 mmol/L (22-29) 12/15/23 04:29 Anion Gap 14.4 (5-19) 12/15/23 04:29 BUN 10 mg/dL (6-20) 12/15/23 04:29 Creatinine 0.2 mg/dL (0.7-1.2) L 12/15/23 04:29 GFR Calculation 500.7 mL/min (90-130) H 12/15/23 04:29 Glucose 96 mg/dL (65-115) 12/15/23 04:29 Calculated Osmolality 297 mOsm/kg (285-295) H 12/15/23 04:29 Lactic Acid 1.9 mmol/L (0.5-2.2) 12/13/23 20:44 Calcium 8.6 mg/dL (8.5-10.5) 12/15/23 04:29 Total Bilirubin 0.4 mg/dL (0.15-1.2) 12/15/23 04:29 AST 14 U/L (0-40) 12/15/23 04:29 ALT 17 U/L (0-41) 12/15/23 04:29 Alkaline Phosphatase 90 U/L (40-130) 12/15/23 04:29 NT-Pro-B Natriuret Pep 88 pg/mL (0-125) 12/13/23 20:44 Total Protein 6.2 g/dL (6.6-8.7) L 12/15/23 04:29 Albumin 3.1 g/dL (3.5-5.2) L 12/15/23 04:29 Globulin 3.1 g/dL (1.3-4.6) 12/15/23 04:29 Bronch Specimen Source Left lower lobe 12/15/23 07:40 Bronchial Fluid Color White 12/15/23 07:40 Bronchial Fluid Appearance Cloudy (CLEAR) 12/15/23 07:40 Bronch Cells Counted 200 12/15/23 07:40 Bronchial Neutrophils 98.00 % (0.9-2.3) H 12/15/23 07:40 Bronchial Macrophages 2.00 % (83.6-86.8) L 12/15/23 07:40 Bronchial Diff Comment Yes 12/15/23 07:40 Vancomycin Trough 10.0 ug/mL (10-15) 12/14/23 20:00 Adenovirus (PCR) Not detected (NOT DETECT) 12/13/23 21:43 C. pneumoniae DNA (PCR) Not detected (NOT DETECT) 12/13/23 21:43 Coronavirus 229E (PCR) Not detected (NOT DETECT) 12/13/23 21:43 Human Metapneumovir PCR Not detected (NOT DETECT) 12/13/23 21:43 Influenza A (H1) PCR Not detected (NOT DETECT) 12/13/23 21:43 Influ A (H1/09) PCR Not detected (NOT DETECT) 12/13/23 21:43 Influenza A (H3) PCR Not detected (NOT DETECT) 12/13/23 21:43 Influenza Type A (PCR) Not detected (NOT DETECT) 12/13/23 21:43 Influenza Type B (PCR) Not detected (NOT DETECT) 12/13/23 21:43 M. pneumoniae (PCR) Not detected (NOT DETECT) 12/13/23 21:43 Parainfluenza 1 (PCR) Not detected (NOT DETECT) 12/13/23 21:43 Parainfluenza 2 (PCR) Not detected (NOT DETECT) 12/13/23 21:43 Parainfluenza 3 (PCR) Not detected (NOT DETECT) 12/13/23 21:43 Parainfluenza 4 (PCR) Not detected (NOT DETECT) 12/13/23 21:43 RSV Type A (PCR) Not detected (NOT DETECT) 12/13/23 21:43 RSV Type B (PCR) Not detected (NOT DETECT) 12/13/23 21:43 Entero/Rhino (PCR) Not detected (NOT DETECT) 12/13/23 21:43 SARS-CoV-2 (PCR) Not detected (NOT DETECT) 12/13/23 21:43 Vitals Last Vital Signs Temp 98.7 F 12/15/23 10:23 Pulse 98 12/15/23 10:23 Resp 16 12/15/23 10:23 BP 111/75 12/15/23 10:23 Pulse Ox 96 12/15/23 10:23 O2 Del Method CPAP 12/15/23 10:23 O2 Flow Rate 0 12/15/23 08:54 Discharge Plan Discharge Patient Disposition: Home Condition: Stable Prescriptions: New acetylcysteine 200 mg/mL (20 %) Solution 100 mg inhalation Q6H.RESP Qty: 90 0RF Hyper-Massimo 3.5 % Solution For Nebulization 4 ml inhalation BID.RESPIRATORY Qty: 240 0RF amoxicillin-pot clavulanate 875-125 mg tablet 1 tab PO BID Qty: 10 0RF levofloxacin 750 mg tablet 750 mg PO DAILY 5 Days Qty: 5 0RF Continued sertraline [Zoloft] 20 mg/mL concentrate 50 mg PO BEDTIME Rx Instructions: 2.5 ml at bedtime per (there are no dose/frequency instructions on bottle) riluzole 50 mg Tablet 50 mg PO BID Entyvio 300 mg Recon Soln 300 mg IV DIRECTED Rx Instructions: every 8 weeks cetirizine 1 mg/mL Solution 10 mg PO BEDTIME Rx Instructions: 10 ml guaifenesin 100 mg/5 mL Liquid 400 mg PO QID Rx Instructions: 20 ml; bottle says take four times daily with water, but states patient only takes it at bedtime nortriptyline 10 mg/5 mL Solution 30 mg PO BEDTIME famotidine 40 mg/5 mL (8 mg/mL) Suspension For Reconstitution 20 mg PO BEDTIME Rx Instructions: 2.5 ml (home bottle states BID, but states he only takes at bedtime) gabapentin 250 mg/5 mL Solution 500 mg PO BEDTIME Rx Instructions: 10 ml Nasonex 24hr Allergy 50 mcg/actuation [place],Non-Aerosol 2 spray INTRANASAL BEDTIME Rx Instructions: administer into each nostril acetaminophen 32 mg/mL Syringe See Rx Instructions .ROUTE .COMPLEX Rx Instructions: unknown dose. states patient takes liquid Tyenol every night at bedtime. Discharge Orders: Discharge Order (Routine); Ordered 12/15/23 Ordered By: Cole Contreras Referrals: Chel Weinstein, VISUAL ASSOCIATE [Primary Care Provider] - 1 week (A follow up appointment has been made with Chel Weinstein on 12/18/2023 @ 9:30am if this t zay does not work for you please call [phone] to reschedule.) Discharge Diet: Usual diet Discharge Activity: Resume usual activity and Increase activity as tolerated Patient Instructions: Opioid Safety Activity Restrictions/Additional Instructions: Augmentin and Levaquin which are the antibiotics he supposed to take for next 5 days. Augmentin will be twice daily Levaquin will be once daily. Mucomyst and hypertonic saline at the nebulization treatment which supposed to be on to thin the secretions Please follow-up with pulmonary team at [facility]. You can follow-up with Dr. Uriel Mijares [address] [place] [id number] Phone:? tel: Discharge Attestations Time Spent in Discharge Care*: greater than 30 min Specific Discharge Activities: educating patient, educating and/or supporting family/caregiver, discussing with pcp/other providers, discussing with correctional case manager/social workers/dc planners, documenting/other paperwork and evaluating patient/reviewing data Status at Discharge: Cognitive status at discharge: cognitively intact , Behavioral status at discharge: cooperative , Functional status at discharge: wheelchair bound , Overall status at discharge: patient is progressing back to baseline Quality Metrics Clinical Quality Measures [ No reported AMI, CVA or VTE this stay] Coding Level of Care Code 69102 Total time (in minutes) for Discharge: 60 Diagnoses Left lower lobe consolidation J18.1 Recurrent pneumonia J18.9 ALS (amyotrophic lateral sclerosis) G12.21 At risk for aspiration Z91.89 Weak cough R05.8
[2023-12-15 13:58] LABS: Methicillin-Resist S.aureu PCR NOT DETECTED (NOT DETECTED)
--- NOTE | 2023-12-15 14:56 | P.PN_ITS ---
Subjective 2 Subjective: Patient underwent bronchoscopy today morning-there were thick mucus plugs clogging all the left lower lobe subsegments-suctioned and BAL sent for cultures and cytology There is no endobronchial lesion visible in left lower lobe airways. Patient was saturating 93% on room air Okay to discharge from pulmonary standpoint with outpatient antibiotics levofloxacin and Augmentin Patient and family are aware that I will not be available in [place] in December 2023-they have an appointment coming up with [facility] on 12/19/2023. Recommended to keep the appointment Respiratory therapy technicians demonstrated how to use cough assist device Medications: Reviewed: Yes Vitals/I&O/Wt Last Vital Signs Temp 98.7 F 12/15/23 10:23 Pulse 114 H 12/15/23 11:59 Resp 17 12/15/23 11:59 BP 110/66 12/15/23 11:59 Pulse Ox 93 12/15/23 11:59 O2 Del Method Room Air 12/15/23 11:59 O2 Flow Rate 0 12/15/23 08:54 12/14/23 12/15/23 12/15/23 22:59 06:59 14:59 Intake Total 300 / 600 300 / 900 450 / 450 Output Total 0 / 0 Balance 300 / 500 300 / 800 450 / 450 Weight last 48 hrs Weight 122 lb 6.4 oz Weight 118 lb 2 oz Weight 118 lb 2 oz Weight 114 lb 12.8 oz Weight 103 lb Physical Exam 2 Narrative: General: alert, NAD, sitting in motorized wheelchair HEENT: conj clear, EOMI, PERRL, mmm, Neck: supple, no meningismus Heme: no cervical LAP Respiratory: Inspection: No visible deformity of the chest wall Palpation: Trachea is mildly deviated to the right, bilateral symmetric expansion Percussion: Bilateral tympanic percussion note both anterior and posteriorly Auscultation: Reduced breath sounds left lower lung zone Cardiovascular: rrr, nl s1s2, no mrg Abdomen: soft, nt, nd, no r/g, bs+ Extremities: pulses +, no edema, no c/c : no CVA tenderness Skin: intact, no rash MSK: no back or neck pain Neurologic: Chronically wheelchair-bound with minimal motor activity Data 12/15/23 04:29 12/15/23 04:29 Micro: Microbiology 12/15/23 07:40 Gram Stain - Final Lung Left Lower Lobe 12/13/23 21:10 Blood Culture - Preliminary Blood NEGATIVE TO DATE 12/13/23 21:21 Blood Culture - Preliminary Blood NEGATIVE TO DATE 12/14/23 09:04 Legionella Urinary Antigen - Final Urine,Voided 12/14/23 09:04 Bacterial Antigens - Final Urine,Voided A&P Assessment and plan (1) Left lower lobe consolidation: (2) Recurrent pneumonia: (3) ALS (amyotrophic lateral sclerosis): (4) At risk for aspiration: (5) Weak cough: Plan # Recurrent left lower lobe pneumonia with persistent atelectasis # At high risk for aspiration due to underlying ALS -Received at least 3 rounds of Augmentin since July 2023 with 1 hospitalization in October 2023 -This admission again CT imaging suggestive of worsening left lower lobe consolidation with questionable endobronchial mucous plug/lesion -S/p bronchoscopy 12/15/2023-found to have copious thick mucous plugs which were completely occluding left lower lobe airways, all the secretions were thoroughly suctioned and cleared the airways. Therapeutic bronchoscope was replaced with diagnostic bronchoscope and advanced further into left lower lobe segments and did not notice any endobronchial lesions. -Sent BAL for cultures and cytology -Okay to discharge from pulmonary standpoint on Augmentin/levofloxacin -Overall due to his underlying ALS-patient is unable to expectorate effectively. Trial of chest vest and suction apparatus to see if it may help clear out his respiratory secretions, else this is likely to be a recurrent process given underlying risk factors. -they even got cough assistive device-respiratory therapy has given instructions on how to use it. - # ALS -Uses noninvasive ventilator at nighttime Attestations 2 Medical Necessity Statement*: Deferred to hospitalist Coding Level of Care Code Acute Code for Chg Fwd Diagnoses Left lower lobe consolidation J18.1 Recurrent pneumonia J18.9 ALS (amyotrophic lateral sclerosis) G12.21 At risk for aspiration Z91.89 Weak cough R05.8 Time Spent (min) 35
== END 2023-12-15 15:03 | disposition home or self-care (01) | DRG 177 ==
LOC: ER 20:40 → MEDSURG 21:19
PROVIDERS: Emergency Medicine; Internal Medicine Pulmonary Disease; Admitting Provider Internal Medicine; Emergency Provider Physician Assistant; PCP Nurse Practitioner; Visit Provider Student in an Organized Health Care Education/Training Program
PROC: 0BJ08ZZ Inspection of Tracheobronchial Tree, Via Natural or Artificial Opening Endoscopic (ICD-10-PCS; CPT 31622; principal; 2023-12-15 07:00)
DX: J69.0 Pneumonitis due to inhalation of food and vomit (principal); J96.90 Respiratory failure, unspecified, unspecified whether with hypoxia or hypercapnia; T17.898A Other foreign object in other parts of respiratory tract causing other injury, initial encounter; G12.21 Amyotrophic lateral sclerosis; Y99.9 Unspecified external cause status; R13.12 Dysphagia, oropharyngeal phase; Z93.1 Gastrostomy status; Z99.3 Dependence on wheelchair
CPT/HCPCS: 31624; 31645; 36415; 71045; 80048; 80053; 80202; 80503; 83605; 83880; 85025; 86403; 87040; 87070; 87077; 87102; 87186; 87205; 87206; 87449; 87486; 87581; 87633; 87641; 88305; 89050; 94640; 94664; 94669; 94799; 96365; 96367; 96372; 99285; J1100; J1650; J2405; J2543; J2704; J3010; J3370; J7030; J7040; J7050; J7608; J7626

== ENCOUNTER 2023-12-22 11:56 | Outpatient (CLI) | payer OTHER, SELFPAY ==
--- NOTE | 2023-12-22 12:14 | XR_ITS ---
WS: [id number] XR chest 1V [id number] REASON FOR EXAM: J18.9 - Pneumonia, unspecified organism FINDINGS: The heart and the mediastinum are within normal limits. There is patchy airspace lung opacity in the lower left lung. This abnormality was present on a previ ous examination of 12/15/2023, and has undergone minimal improvement. There is no other significant interval change and no new findings. XR/XR chest 1V 35626 IMPRESSION: Minimal improvement in the left lower lung opacities.
== END 2023-12-22 11:57 | disposition home or self-care (01) ==
LOC: RAD 12:08
PROVIDERS: PCP Nurse Practitioner; Visit Provider Internal Medicine Pulmonary Disease
DX: J18.9 Pneumonia, unspecified organism (principal); R07.9 Chest pain, unspecified
CPT/HCPCS: 71045

== ENCOUNTER → 2024-01-05 11:55 | Outpatient (BNVA) | payer OTHER, SELFPAY | PROVIDERS: PCP Nurse Practitioner; Visit Provider Student in an Organized Health Care Education/Training Program | DX: A04.71 Enterocolitis due to Clostridium difficile, recurrent (principal); J18.9 Pneumonia, unspecified organism | CPT/HCPCS: 99213 ==

== ENCOUNTER 2024-01-08 12:32 | Outpatient (CLI) | payer OTHER, SELFPAY ==
--- NOTE | 2024-01-08 12:40 | CTR_ITS ---
PROCEDURE INFORMATION: Exam: CT Chest With Contrast; Diagnostic Exam date and time: 01/08/2024 12:45 PM Age: 53 years old Clinical indication: Abnormal findings; Abnormal diagnostic tests; Abnormal ekg; Patient HX: HX of pneumonia, ? mucus plug reoccurance, ongoing fever; Additional info: ? Mucus plug reoccurance-ongoing fever/elevated wbc TECHNIQUE: Imaging protocol: Diagnostic computed tomography of the chest with contrast. Radiation optimization: All CT scans at this facility use at least one of these dose optimization techniques: automated exposure control; mA and/or kV adjustment per patient size (includes targeted exams where dose is matched to clinical indication); or iterative reconstruction. Contrast material: OMNIPAQUE 350; Contrast volume: 100 ml; Contrast route: INTRAVENOUS (IV); COMPARISON: CT chest con [id number] 13/12/2023 13:17 RADIATION DOSE METRICS: Total DLP (mGy-cm): 406.93 FINDINGS: Lungs: Stable inferior left lower lobe consolidation. There is new consolidating and non consolidating infiltrate in the lingula. There is new consolidating and non consolidating infiltrate in the medial right lower lobe and superior aspect of the left lower lobe concerning for worsening multifocal pneumonia. There are areas of bronchial obstruction in the medial right lower lobe and left lower lobe concerning for mucous plugging. Pleural spaces: Unremarkable. No pneumothorax. No pleural effusion. Heart: Unremarkable. No cardiomegaly. No pericardial effusion. Coronary arteries: No visible calcified coronary artery disease. Lymph nodes: There are small right paratracheal, precarinal and subcarinal lymph nodes, unchanged prior study. Vasculature: Unremarkable. No aortic aneurysm. Bones/joints: Unremarkable. No acute fracture. Soft tissues: Unremarkable. CT/CT chest w con* [id number] IMPRESSION: 1. Worsening bilateral multifocal pneumonia as above. 2. Multifocal areas of bronchial obstruction/mucous plugging in the lower lung zones bilaterally.
--- NOTE | 2024-01-08 12:40 | CTR_ITS ---
PROCEDURE INFORMATION: Exam: CT Abdomen Without Contrast Exam date and time: 01/08/2024 12:45 PM Age: 53 years old Clinical indication: Abdominal pain; Acute; Prior surgery; Surgery date: 6+ months; Patient HX: Abd pain around peg tube placement since yesterday TECHNIQUE: Imaging protocol: Computed tomography of the abdomen without contrast. Radiation optimization: All CT scans at this facility use at least one of these dose optimization techniques: automated exposure control; mA and/or kV adjustment per patient size (includes targeted exams where dose is matched to clinical indication); or iterative reconstruction. COMPARISON: CT abdomen pelvis w con* [id number] 09/06/2023 03:[address] chest January 08, 2024. RADIATION DOSE METRICS: Total DLP (mGy-cm): 160.9 FINDINGS: Tubes, catheters and devices: There is a PEG tube in good position with the retention balloon inflated within the gastric lumen. No evidence of a hematoma surrounding the PEG soft tissue tract. Lungs: Again noted are consolidating and non consolidating infiltrates in the lower lung zones with areas of bronchial mucous plugging. Please reference CT chest same day. Liver: The liver is normal in appearance. No focal liver mass or intrahepatic biliary dilatation. Gallbladder and biliary ducts: The gallbladder is unremarkable with no calcified stones visualized and no strandy inflammatory changes surrounding the gallbladder. Pancreas: Normal. No ductal dilation. Spleen: The spleen is normal in appearance. Adrenal glands: The adrenal glands are normal in appearance. Kidneys and ureters: There is a 1 mm nonobstructing calculus in a lower pole calyx of the right kidney. Stomach and bowel: The small bowel loops are not thickened and are nondilated. The colon is unremarkable. Intraperitoneal space: Unremarkable. No free air. No significant fluid collection. Vasculature: Unremarkable. No abdominal aortic aneurysm. Lymph nodes: Unremarkable. No enlarged lymph nodes. Bones/joints: Unremarkable. No acute fracture. No dislocation. Soft tissues: Unremarkable. CT/CT abdomen con [id number]: 1[address] No CT evidence of an acute abdominal abnormality. 2. The PEG tube is in good position in the soft tissue surrounding the PEG tube are unremarkable. 3. 1 mm nonobstructing calculus in the lower pole calyx of the right kidney.
== END 2024-01-08 12:33 | disposition home or self-care (01) ==
PROVIDERS: PCP Nurse Practitioner; Visit Provider Nurse Practitioner
DX: J18.8 Other pneumonia, unspecified organism (principal); J98.09 Other diseases of bronchus, not elsewhere classified
CPT/HCPCS: 71260; 74150

== ENCOUNTER 2024-01-08 13:02 | Inpatient (IN) | payer OTHER, SELFPAY ==
[2024-01-08] VITALS (10 sets, daily range): BP systolic 97–128; BP diastolic 65–78; PULSE 107–132; RESP 17–27; TEMP 36.9–37; O2SAT 91–97; BMI 16.2
[2024-01-08 13:46] LABS: Alanine Aminotransferase 26 U/L (0-41); Albumin Level 3.5 g/dL (3.5-5.2); Alkaline Phosphatase 123 U/L (40-130); Anion Gap 15.4 (5-19); Aspartate Amino Transferase 19 U/L (0-40); Blood Urea Nitrogen 12 mg/dL (6-20); Calcium 9.2 mg/dL (8.5-10.5); Carbon Dioxide 29 mmol/L (22-29); Chloride 100 mmol/L (98-107); Globulin 4.3 g/dL (1.3-4.6); Glomerular Filtration Rate 500.7 mL/min (90-130); Glucose 114 mg/dL (65-115); Lipase 20 U/L (13-60); Osmolality Calculated 291 mOsm/kg (285-295); Potassium 4.4 mmol/L (3.5-5.1); Sodium 140 mmol/L (136-145); Total Bilirubin 0.2 mg/dL (0.15-1.2); Total Protein 7.8 g/dL (6.6-8.7)
[2024-01-08 13:49] LABS: Basophils % 0.2 %; Eosinophils % 0.2 %; Lymphocytes # 1.1 10^3/uL (0.8-4.8); Lymphocytes % 5.6 %; Mean Corpuscular HGB Conc 31.5 g/dL (30-55); Mean Corpuscular Hemoglobin 29.6 pg (27-33); Mean Corpuscular Volume 94.2 fl (82-101); Mean Platelet Volume 10.2 fL (7.4-10.4); Monocytes # 1.2 10^3/uL (0.2-0.9); Monocytes % 6.3 %; Neutrophils # 16.71 10^3/uL (1.8-7.7); Neutrophils % 87.3 %; Nucleated Red Blood Cells % 0 %; Platelet Count 582 10^3/cmm (157-399); Red Blood Count 3.61 10^6/uL (3.85-5.65); Red Cell Distribution Width 14.7 % (12.1-15.1); White Blood Count 19.13 10^3/uL (3.29-11.43)
--- NOTE | 2024-01-08 14:29 | W.ED.URI ---
HPI - URI/Sore Throat General: Chief Complaint: Upper Respiratory Infection Stated Complaint: abd pain Time Seen by Provider: 01/08/24 14:06 History of Present Illness: 53-year-old man with a history of ALS and recurrent pneumonia who presents to the emergency room with worsening fevers, malaise and shortness of breath. He has been being treated for C. difficile with oral Vanco. He is currently been on Levaquin and Augmentin for pneumonia. Spoke with his who spoke with the waybill clerk who had done his recent [facility] and apparently there was some staff aureus in this and has not been covered for that. Temps as high as 102 and 103 at home. He had a CT scan done of his chest abdomen pelvis. The CT shows worsening pneumonia. Review of Systems Narrative: Constitutional symptoms: Negative except as documented in HPI. Skin symptoms: Negative except as documented in HPI. Eye symptoms: Negative except as documented in HPI. ENMT symptoms: Negative except as documented in HPI. Respiratory symptoms: Negative except as documented in HPI. Cardiovascular symptoms: Negative except as documented in HPI. Gastrointestinal symptoms: Negative except as documented in HPI. Genitourinary symptoms: Negative except as documented in HPI. Musculoskeletal symptoms: Negative except as documented in HPI. Neurologic symptoms: Negative except as documented in HPI. Psychiatric symptoms: Negative except as documented in HPI. Endocrine symptoms: Negative except as documented in HPI. [facility] ED PFSH: Medical History C. difficile enteritis Ulcerative (chronic) enterocolitis ALS (amyotrophic lateral sclerosis) Surgical History History of oral surgery History of esophageal surgery Family History Denies family history of Diabetes Hypertension Social History Smoking and tobacco/nicotine status: never used tobacco/nicotine Alcohol intake: never Substance/Drug Use: never Physical Exam Narrative: EXAM NARRATIVE: General: Alert, no acute distress. Patient is cachectic and in a wheelchair. Skin: Warm, dry. Head: Normocephalic, atraumatic. Neck: Supple, trachea midline. Eye: Extraocular movements are intact. Ears, nose, mouth and throat: mucosa moist. Cardiovascular: Regular, Normal peripheral perfusion. Respiratory: Lungs are clear to auscultation, respirations are non-labored, breath sounds are equal, Symmetrical chest wall expansion. Gastrointestinal: Soft, Nontender, Non distended, Normal bowel sounds. Musculoskeletal: Normal ROM, no deformity. Neurological: Alert and oriented, No focal neurological deficit observed. Psychiatric: Cooperative, appropriate mood & affect. Course Vital Signs: Vital signs: Vital Signs Temperature 98.6 F 01/08/24 13:15 Pulse Rate 116 H 01/08/24 15:19 Respiratory Rate 18 01/08/24 13:15 Blood Pressure 97/65 01/08/24 15:19 Pulse Oximetry 96 01/08/24 15:19 Oxygen Delivery Me thod Room Air 01/08/24 13:15 MDM - URI/Sore Throat Medical Decision Making Medical decision making: Differential diagnosis including but not limited to and based on the above HPI, review of systems and physical exam: Patient has continued leukocytosis and worsening evidence of pneumonia on his CT scan. Also record of Staph aureus in his bron. Orders placed to evaluate differential diagnosis based on the above differential, HPI and physical exam Lab Review: Laboratory results were reviewed and interpreted by myself the emergency room physician. Continue leukocytosis with a white count of 19,000. Hemoglobin is 10.7. BUN and creatinine are 12 and 0.2. I reviewed the patient's medical record. Consultation: I spoke with Dr. Kay who is on-call for the hospitalist service. She is concerned the patient might need a bronchoscopy so request consultation with pulmonology. She agrees to admission once cleared by pulmonology. She saw the patient in the emergency room Consultation: I spoke with Dr. Chavez who is on-call for pulmonology at this time. He is setting up to do a bronchoscopy and agrees to consult on the patient upon admission. He saw the patient in the emergency room. Reexamination: Patient remained stable. Blood pressure is a little bit soft. He has been using his BiPAP. No increased work of breathing. No altered mental status. Assessment and plan: Pneumonia Ametropic lateral sclerosis C. difficile colitis ?Giving broad-spectrum antibiotics meropenem and Zyvox at this time. Patient has failed therapy on Levaquin and Augmentin. -I discussed the patient with the hospitalist on-call who is admitting the patient. - Discussed findings and plan with patient. Answered any questions. - All laboratory values were reviewed and interpreted personally by myself, the ER physician - All imaging was reviewed and interpreted personally by myself, the ER physician. - Evaluation and treatment of this problem were appropriate in the emergency setting -I spent a total of >35 minutes of critical care time managing the patient, independent of any other practitioner. -The time involved in the performance of separately reportable procedures was not counted towards critical care time. Lab Data 01/08/24 13:41 01/08/24 13:15 Laboratory Results WBC 19.13 10^3/uL (3.29-11.43) H 01/08/24 13:41 RBC 3.61 10^6/uL (3.85-5.65) L 01/08/24 13:41 Hgb 10.70 g/dL (11.27-16.99) L 01/08/24 13:41 Hct 34.0 % (37-53) L 01/08/24 13:41 MCV 94.2 fl (82-101) 01/08/24 13:41 MCH 29.6 pg (27-33) 01/08/24 13:41 MCHC 31.5 g/dL (30-55) 01/08/24 13:41 RDW 14.7 % (12.1-15.1) 01/08/24 13:41 Plt Count 582 10^3/cmm (157-399) H 01/08/24 13:41 MPV 10.2 fL (7.4-10.4) 01/08/24 13:41 Neut % (Auto) 87.3 % 01/08/24 13:41 Lymph % (Auto) 5.6 % 01/08/24 13:41 Petroleum % (Auto) 6.3 % 01/08/24 13:41 Eos % (Auto) 0.2 % 01/08/24 13:41 Baso % (Auto) 0.2 % 01/08/24 13:41 Neut # (Auto) 16.71 10^3/uL (1.8-7.7) H 01/08/24 13:41 Lymph # (Auto) 1.1 10^3/uL (0.8-4.8) 01/08/24 13:41 Petroleum # (Auto) 1.2 10^3/uL (0.2-0.9) H 01/08/24 13:41 Eos # (Auto) 0.0 10^3/uL (0.0-0.8) 01/08/24 13:41 Baso # (Auto) 0.0 10^3/uL (0.0-0.1) 01/08/24 13:41 Nucleated RBC % (auto) 0 % 01/08/24 13:41 Nucleated RBCs # 0.0 /100WBC 01/08/24 13:41 Sodium 140 mmol/L (136-145) 01/08/24 13:15 Potassium 4.4 mmol/L (3.5-5.1) 01/08/24 13:15 Chloride 100 mmol/L (98-107) 01/08/24 13:15 Carbon Dioxide 29 mmol/L (22-29) 01/08/24 13:15 Anion Gap 15.4 (5-19) 01/08/24 13:15 BUN 12 mg/dL (6-20) 01/08/24 13:15 Creatinine 0.2 mg/dL (0.7-1.2) L 01/08/24 13:15 GFR Calculation 500.7 mL/min (90-130) H 01/08/24 13:15 Glucose 114 mg/dL (65-115) 01/08/24 13:15 Calculated Osmolality 291 mOsm/kg (285-295) 01/08/24 13:15 Calcium 9.2 mg/dL (8.5-10.5) 01/08/24 13:15 Total Bilirubin 0.2 mg/dL (0.15-1.2) 01/08/24 13:15 AST 19 U/L (0-40) 01/08/24 13:15 ALT 26 U/L (0-41) 01/08/24 13:15 Alkaline Phosphatase 123 U/L (40-130) 01/08/24 13:15 Total Protein 7.8 g/dL (6.6-8.7) 01/08/24 13:15 Albumin 3.5 g/dL (3.5-5.2) 01/08/24 13:15 Globulin 4.3 g/dL (1.3-4.6) 01/08/24 13:15 Lipase 20 U/L (13-60) 01/08/24 13:15 All radiology interpretation(s) finalized by discharge Discharge Plan Discharge Patient Disposition: Admitted As Inpatient Clinical Impression: Pneumonia, ALS (amyotrophic lateral sclerosis) Condition: Stable Coding Level of Care Code ED Blind Lacer for Clary Yo
[2024-01-08] MEDS: meropenem 500 MG in sodium chloride 0.9% (plus) 50 ML 100 MG IV ×2 (14:55→23:08)
[2024-01-08] MEDS: linezolid premix 600 MG/300 ML PREMIX 300 MG IV (15:26)
--- NOTE | 2024-01-08 15:38 | PM.CONSULT ---
Providers/Reason For Consult Consulting Physician/Specialty*: Rj Hdz MD FCCP/pulmonary critical care Reason for Consult*: bilateral diffuse Recurrent mucous plugging Primary Care Provider: MORENO Ferrara History of Present Illness History of Present Illness Silvestre Espinosa is a 53 year old male with history of past medical history of ALS, chronically in a wheelchair, history of oropharyngeal dysphagia, failed swallow eval's, currently has a PEG in place with exclusive feeding via PEG tube. -being treated for recurrent left lower lobe pneumonia with several courses of Augmentin comes to emergency room for with chief complaint of fevers and not feeling well for the last few days. Last a few months-patient advair multiple hospitalizations with recurrent left lower lobe pneumonia and recurrent C. difficile colitis. He has a history of ulcerative colitis for which he is on Entyvio and ALS for which he is on riluzole. His recurrent left lower lobe pneumonia is secondary to inability to clear secretions/diaphragm weakness due to his ALS-currently uses a cough assist machine and vest therapy regularly. He is currently on Augmentin and Levaquin for pneumonia and completed a course of Dificid last week for C. difficile colitis. He is on oral vancomycin presently given ongoing need for antibiotics. Despite being on these antibiotics-patient had fever spike 101.8 at home. Denied any cough or sputum production. Admitted having rattling in his chest. Also complained of greenish nasal discharge. With the persistent fevers, patient's primary care provider ordered an outpatient CT scan of the chest. This was performed and showed worsening bilateral multifocal pneumonia. He is on his home trilogy device wearing it more than he normally does due to sensation of difficulty breathing lately. He denied any chest pains. Pulmonary consult recommended for bronchoscopic inspection of airways and airway clearance. I have seen this patient when he admitted to hospital on 10/16/2023 as well as 12/13/2023 for persistent left lower lobe infiltrate/pneumonia. He has been having this recurrent left lower lobe consolidation/mucous plugging causing atelectasis since August 2023 and was treated with several rounds of Augmentin. There was suspicion for endobronchial obstruction and underwent bronchoscopy 10/17/2023 and also 12/15/2023-both instances found to have copious thick mucous plugs which were completely occluding left lower lobe airways, all the secretions were thoroughly suctioned and cleared the airways. Therapeutic bronchoscope was replaced with diagnostic bronchoscope and advanced further into left lower lobe segments and did not notice any endobronchial lesions. BAL cultures grew Streptococcus in October 2023 and Staph aureus in November 2023. Patient was treated with antibiotics. BAL Aspergillus, beta D glucan, blasto mitis antibodies, mycobacterial cultures, fungal cultures were all negative. Cytology showed atypical degenerating cells-no definitive well-preserved diagnostic malignant cells identified. There is a concern for underlying malignancy causing endobronchial lesion-however diagnostic bronchoscopic examination did not reveal any endobronchial lesions and both times cultures were positive for bacteria and he was treated with antibiotics. I ordered PET CT scan as outpatient-however authorization has to come through [place] and it is taking time. This patient is also currently on Entyvio for ulcerative colitis. He has been on this medication since 2019, having previously been on Remicade. There is no recent history of travel. No exotic pets at home. They have a pet dog and a few cats. 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 He has had several international rounds including those to the [place], [place] and [place]. He was serially tested on PPDs on many occasions in the , last tested 2009, has been negative on PPDs.Previously lived in [facility], moved to the [facility] in 2019. No known history of coccidiomycosis. Unfortunately patient did develop antibiotic associated C. difficile diarrhea both times that he was on Augmentin,-received with Dificid and resolved. Now he has relapse and currently is on p.o. vancomycin and Dificid and scheduled to go to [place] for fecal transplant tomorrow for which he needs to be off antibiotics for at least 2 days. But unfortunately he spiked fever and was placed on antibiotics and came to ER today Today have seen Mr. Rivers and his at bedside. Overall due to his underlying ALS-patient is unable to expectorate effectively. But reports lately has been using chest vest 3 times daily as well as cough assistive device consistently. Reported following up with ALS clinic in [facility]. Patient reported having low-grade fever lately and hence came to ER. Review of Systems General: Reports: 10 or more systems reviewed and unremarkable except in HPI and below Medications/Allergies Home Medications Medication Instructions Recorded Confirmed Last Taken Type vedolizumab 300 mg intravenous 300 mg IV DIRECTED 04/24/20 01/08/24 11/14/23 History solution (Entyvio) sertraline 20 mg/mL oral 50 mg feeding tube BEDTIME 05/16/23 01/08/24 01/07/24 21:00 History concentrate (Zoloft) cetirizine 1 mg/mL oral solution 10 mg PO BEDTIME 10/16/23 01/08/24 01/07/24 21:00 History famotidine 40 mg/5 mL (8 mg/mL) 20 mg PO BEDTIME 12/13/23 01/08/24 01/07/24 21:00 History oral suspension gabapentin 250 mg/5 mL oral 500 mg PO BEDTIME 12/13/23 01/08/24 01/07/24 21:00 History solution vancomycin 50 mg/mL oral solution 125 mg (2.5 mL) PO .every other 01/05/24 01/08/24 Unknown Rx day 2 months #80 mL vancomycin 50 mg/mL oral solution 125 mg (2.5 mL) PO BID 7 days #35 01/05/24 01/08/24 01/08/24 09:00 Rx mL vancomycin 50 mg/mL oral solution 125 mg (2.5 mL) PO DAILY 7 days 01/05/24 01/08/24 Unknown Rx #80 mL acetaminophen 500 mg/15 mL oral 1,000 mg feeding tube Q4-5H PRN 01/08/24 01/08/24 01/08/24 15:00 History liquid Fever amoxicillin 875 mg-potassium 1 tab feeding tube BID 01/08/24 01/08/24 01/08/24 09:00 History clavulanate 125 mg tablet fidaxomicin 200 mg tablet (Dificid) 200 mg feeding tube BID PRN c diff 01/08/24 01/08/24 01/02/24 History guaifenesin 100 mg/5 mL oral 600 mg PO BID 01/08/24 01/08/24 01/08/24 09:00 History liquid (Jing-Tussin) levofloxacin 500 mg tablet 500 mg feeding tube DAILY 01/08/24 01/08/24 01/08/24 09:00 History nortriptyline 10 mg/5 mL oral 30 mg feeding tube BEDTIME 01/08/24 01/08/24 01/07/24 21:00 History solution riluzole 50 mg tablet 50 mg PO BID 01/08/24 01/08/24 01/08/24 17:00 History scopolamine base 1 mg over 3 days 0.5 patch transdermal Q2D 01/08/24 01/08/24 01/08/24 09:00 History transdermal patch Allergies Allergy/AdvReac Type Severity Reaction Status Date / Time No Known Allergies Allergy Verified 01/05/24 12:00 PFSH Acute PFSH: Medical History Anemia of chronic disease Depression Peripheral neuropathy Recurrent Clostridioides difficile diarrhea Fracture of femoral neck, right Chronic, nondisplaced, for non operative management to date, follows with [facility] Small bowel obstruction 06/08 C. difficile enteritis Ulcerative (chronic) enterocolitis ALS (amyotrophic lateral sclerosis) Diagnosed in 2018 Surgical History History of oral surgery History of esophageal surgery Family History Denies family history of Diabetes Hypertension Social History Smoking and tobacco/nicotine status: never used tobacco/nicotine Alcohol intake: never Substance/Drug Use: never Vitals/I&O/Wt Last Vital Signs Temp 98.6 F 01/08/24 13:15 Pulse 109 H 01/08/24 13:15 Resp 18 01/08/24 13:15 BP 108/76 01/08/24 13:15 Pulse Ox 97 01/08/24 13:15 O2 Del Method Room Air 01/08/24 13:15 01/08/24 01/08/24 01/08/24 06:59 14:59 22:59 Intake Total 50 / 50 Balance 50 / 50 Weight last 48 hrs Weight 110 lb Physical Exam Narrative: General: alert, NAD, sitting in motorized wheelchair HEENT: conj clear, EOMI, PERRL, mmm, Neck: supple, no meningismus Heme: no cervical LAP Respiratory: Inspection: No visible deformity of the chest wall Palpation: Trachea is mildly deviated to the right, bilateral symmetric expansion Percussion: Bilateral tympanic percussion note both anterior and posteriorly Auscultation: Reduced breath sounds left lower lung zone Cardiovascular: rrr, nl s1s2, no mrg Abdomen: soft, nt, nd, no r/g, bs+ Extremities: pulses +, no edema, no c/c : no CVA tenderness Skin: intact, no rash MSK: no back or neck pain Neurologic: Chronically wheelchair-bound with minimal motor activity Data 01/08/24 13:41 01/08/24 13:15 Other Labs: Laboratory Results WBC 19.13 10^3/uL (3.29-11.43) H 01/08/24 13:41 RBC 3.61 10^6/uL (3.85-5.65) L 01/08/24 13:41 Hgb 10.70 g/dL (11.27-16.99) L 01/08/24 13:41 Hct 34.0 % (37-53) L 01/08/24 13:41 MCV 94.2 fl (82-101) 01/08/24 13:41 MCH 29.6 pg (27-33) 01/08/24 13:41 MCHC 31.5 g/dL (30-55) 01/08/24 13:41 RDW 14.7 % (12.1-15.1) 01/08/24 13:41 Plt Count 582 10^3/cmm (157-399) H 01/08/24 13:41 MPV 10.2 fL (7.4-10.4) 01/08/24 13:41 Neut % (Auto) 87.3 % 01/08/24 13:41 Lymph % (Auto) 5.6 % 01/08/24 13:41 [place] % (Auto) 6.3 % 01/08/24 13:41 Eos % (Auto) 0.2 % 01/08/24 13:41 Baso % (Auto) 0.2 % 01/08/24 13:41 Neut # (Auto) 16.71 10^3/uL (1.8-7.7) H 01/08/24 13:41 Lymph # (Auto) 1.1 10^3/uL (0.8-4.8) 01/08/24 13:41 [place] # (Auto) 1.2 10^3/uL (0.2-0.9) H 01/08/24 13:41 Eos # (Auto) 0.0 10^3/uL (0.0-0.8) 01/08/24 13:41 Baso # (Auto) 0.0 10^3/uL (0.0-0.1) 01/08/24 13:41 Nucleated RBC % (auto) 0 % 01/08/24 13:41 Nucleated RBCs # 0.0 /100WBC 01/08/24 13:41 Sodium 140 mmol/L (136-145) 01/08/24 13:15 Potassium 4.4 mmol/L (3.5-5.1) 01/08/24 13:15 Chloride 100 mmol/L (98-107) 01/08/24 13:15 Carbon Dioxide 29 mmol/L (22-29) 01/08/24 13:15 Anion Gap 15.4 (5-19) 01/08/24 13:15 BUN 12 mg/dL (6-20) 01/08/24 13:15 Creatinine 0.2 mg/dL (0.7-1.2) L 01/08/24 13:15 GFR Calculation 500.7 mL/min (90-130) H 01/08/24 13:15 Glucose 114 mg/dL (65-115) 01/08/24 13:15 Calculated Osmolality 291 mOsm/kg (285-295) 01/08/24 13:15 Calcium 9.2 mg/dL (8.5-10.5) 01/08/24 13:15 Total Bilirubin 0.2 mg/dL (0.15-1.2) 01/08/24 13:15 AST 19 U/L (0-40) 01/08/24 13:15 ALT 26 U/L (0-41) 01/08/24 13:15 Alkaline Phosphatase 123 U/L (40-130) 01/08/24 13:15 Total Protein 7.8 g/dL (6.6-8.7) 01/08/24 13:15 Albumin 3.5 g/dL (3.5-5.2) 01/08/24 13:15 Globulin 4.3 g/dL (1.3-4.6) 01/08/24 13:15 Lipase 20 U/L (13-60) 01/08/24 13:15 Urine Color Yellow (Yellow) 01/08/24 20:30 Urine Appearance Clear (CLEAR) 01/08/24 20:30 Urine pH 7 (5-7) 01/08/24 20:30 Ur Specific [place] 1.005 (1.005-1.030) 01/08/24 20:30 Urine Protein 1+ (Negative) H 01/08/24 20:30 Urine Glucose (UA) Norm (Normal) 01/08/24 20:30 Urine Ketones 1+ (Negative) H 01/08/24 20:30 Urine Blood Trace (Negative) H 01/08/24 20:30 Urine Nitrate Negative (Negative) 01/08/24 20:30 Urine Bilirubin Neg (Negative) 01/08/24 20:30 Urine Urobilinogen 1 mg/dL (Negative) H 01/08/24 20:30 Ur Leukocyte Esterase Negative (Negative) 01/08/24 20:30 Urine RBC 0-4 /hpf (0-2) H 01/08/24 20:30 Urine WBC None /hpf (0-5) 01/08/24 20:30 Ur Squamous Epith Cells None /hpf (0-5) 01/08/24 20:30 Amorphous Sediment Not Reportable 01/08/24 20:30 Urine Bacteria None /hpf (NONE) 01/08/24 20:30 Urine Mucus N /hpf 01/08/24 20:30 A&P Assessment and plan (1) Left lower lobe consolidation: (2) Recurrent pneumonia: (3) ALS (amyotrophic lateral sclerosis): (4) At risk for aspiration: (5) Weak cough: Plan # Recurrent left lower lobe pneumonia with persistent atelectasis # At high risk for aspiration due to underlying ALS -Received at least 4-5 rounds of Augmentin since July 2023 with 2 hospitalizations in October 2023 and November 2023 -This admission again CT imaging suggestive of worsening left lower lobe consolidation with questionable endobronchial mucous plug/lesion -S/p bronchoscopy 10/16/2023 and 12/15/2023-found to have copious thick mucous plugs which were completely occluding left lower lobe airways, all the secretions were thoroughly suctioned and cleared the airways. Therapeutic bronchoscope was replaced with diagnostic bronchoscope and advanced further into left lower lobe segments and did not notice any endobronchial lesions. -BAL cultures grew Streptococcus in October 2023 and Staph aureus in November 2023. Patient was treated with antibiotics. BAL Aspergillus, beta D glucan, blasto mitis antibodies, mycobacterial cultures, fungal cultures were all negative. -Cytology showed atypical degenerating cells-no definitive well-preserved diagnostic malignant cells identified. -There is a concern for underlying malignancy causing endobronchial lesion-however diagnostic bronchoscopic examination did not reveal any endobronchial lesions and both times cultures were positive for bacteria and he was treated with antibiotics. I ordered PET CT scan as outpatient-however authorization has to come through [place] and it is taking time. -I am going to schedule for another bronchoscopic examination of airways, clearance of airways, obtaining bronchoalveolar lavage to send for repeat cultures and cytology; will plan for biopsies. -Okay to cover with vancomycin and meropenem for broader coverage and healthcare associated pneumonia -Overall due to his underlying ALS-patient is unable to expectorate effectively. Recommended to continue chest vest therapy 3 times daily and CoughAssist device # ALS -Uses noninvasive ventilator at nighttime Consult Attestations Medical Necessity Statement: Plan for bronchoscopy tomorrow Time Spent in Patient Care: Greater than 35 minutes (>than 50% of time spent in counselling and/or direct pt care on unit). Critical Care Time: The high probability of a clinically significant, sudden or life threatening deterioration of the patient's [pulmonary] system(s) required my full and direct attention, intervention and personal management. The critical care time is as shown. This time is in addition to time spent performing any reported procedures but includes the following: [x] Data and vital sign review and interpretation [x] Patient assessment, examination and intervention [x] Documentation [x] Medication orders and management Critical Care Time (min): 47 Coding Level of Care Code Acute Code for Chg Fwd Diagnoses Left lower lobe consolidation J18.1 Recurrent pneumonia J18.9 ALS (amyotrophic lateral sclerosis) G12.21 At risk for aspiration Z91.89 Weak cough R05.8 Time Spent (min) 47
--- NOTE | 2024-01-08 17:53 | P.HP_ITS ---
Providers/Chief Complaint 2 Admitting Physician: Brisa Kay MD Primary Care Provider: MORENO Ferrara Chief Complaint: abd pain History of Present Illness Silvestre Espinosa is a 53 year old male who presents to the emergency room with chief complaint of fevers and not feeling well for the last few days. He has had a somewhat complicated clinical course last few months with several hospitalizations, recurrent pneumonia and recurrent C. difficile colitis. He has a history of ulcerative colitis for which he is on Entyvio and ALS for which he is on riluzole. The last few months he has been hospitalized both in October and November. He has been following outpatient with Dr. Hdz and Dr. Keene. He is currently on Augmentin and Levaquin for pneumonia and completed a course of Dificid last week for C. difficile colitis. He is on oral vancomycin presently given ongoing need for antibiotics. He uses a cough assist machine and vest therapy regularly. Despite initiation of antibiotics he has continued to have fever up to 101.8 at home. He does not cough and no sputum production has been noted. At times he has some rattling in his chest. He has had nasal drainage. No vomiting. No abdominal pain. He does have approximately 4 loose stools a day but that is normal for him when he is on antibiotics. Does not smell or appear to be C. difficile diarrhea per who is now somewhat of an expert. No change in urination. Has had some aches and general malaise. With adjustments to his tube feeding regimen, he has managed to put back on some of the weight he lost earlier this year. He has not been taking water by mouth since he was instructed not to at his last hospital stay. He is known to have some silent aspiration. With the persistent fevers, patient's primary care provider ordered an outpatient CT scan of the chest. This was performed and showed worsening bilateral multifocal pneumonia. Patient subsequently went to the emergency room. There he was found to have an elevated white count of 19,000 with a bit of a left shift. He was tachycardic but that has not been unusual for him of late. No fever noted here. Blood pressures have been stable. He is on his home trilogy device wearing it more than he normally does due to sensation of difficulty breathing lately. Unlike previous times he has not had any chest pain or pleuritic chest pain. His last bronchoscopy was on December 14. At that time, cultures showed MSSA, resistant to Penicillin and Ampicillin. With persistent fevers and worsening of his CT imaging along with elevation in white blood count, patient is being admitted for further evaluation and treatment. He has not had recent course of steroids that might account for the elevation in white count. History is obtained from his and him. Review of Systems 2 General: Reports: Other (ROS as per HPI or as otherwise noted here) Card: Denies: chest pain Resp: Reports: dyspnea, wheezing and chest congestion; Denies: pain on inspiration GI: Reports: early satiety and other (4 loose stools per day presently, not like c diff per ); Denies: abdominal pain, nausea, vomiting, hematochezia or melena Medications/Allergies Home Medications Medication Instructions Recorded Confirmed Last Taken Type vedolizumab 300 mg intravenous 300 mg IV DIRECTED 04/24/20 01/08/24 11/14/23 History solution (Entyvio) sertraline 20 mg/mL oral 50 mg feeding tube BEDTIME 05/16/23 01/08/24 01/07/24 21:00 History concentrate (Zoloft) cetirizine 1 mg/mL oral solution 10 mg PO BEDTIME 10/16/23 01/08/24 01/07/24 21:00 History famotidine 40 mg/5 mL (8 mg/mL) 20 mg PO BEDTIME 12/13/23 01/08/24 01/07/24 21:00 History oral suspension gabapentin 250 mg/5 mL oral 500 mg PO BEDTIME 12/13/23 01/08/24 01/07/24 21:00 History solution vancomycin 50 mg/mL oral solution 125 mg (2.5 mL) PO .every other 01/05/24 01/08/24 Unknown Rx day 2 months #80 mL vancomycin 50 mg/mL oral solution 125 mg (2.5 mL) PO BID 7 days #35 01/05/24 01/08/24 01/08/24 09:00 Rx mL vancomycin 50 mg/mL oral solution 125 mg (2.5 mL) PO DAILY 7 days 01/05/24 01/08/24 Unknown Rx #80 mL acetaminophen 500 mg/15 mL oral 1,000 mg feeding tube Q4-5H PRN 01/08/24 01/08/24 01/08/24 15:00 History liquid Fever amoxicillin 875 mg-potassium 1 tab feeding tube BID 01/08/24 01/08/24 01/08/24 09:00 History clavulanate 125 mg tablet fidaxomicin 200 mg tablet (Dificid) 200 mg feeding tube BID PRN c diff 01/08/24 01/08/24 01/02/24 History guaifenesin 100 mg/5 mL oral 600 mg PO BID 01/08/24 01/08/24 01/08/24 09:00 History liquid (Jing-Tussin) levofloxacin 500 mg tablet 500 mg feeding tube DAILY 01/08/24 01/08/24 01/08/24 09:00 History nortriptyline 10 mg/5 mL oral 30 mg feeding tube BEDTIME 01/08/24 01/08/24 01/07/24 21:00 History solution riluzole 50 mg tablet 50 mg PO BID 01/08/24 01/08/24 01/08/24 17:00 History scopolamine base 1 mg over 3 days 0.5 patch transdermal Q2D 01/08/24 01/08/24 01/08/24 09:00 History transdermal patch Allergies Allergy/AdvReac Type Severity Reaction Status Date / Time No Known Allergies Allergy Verified 01/05/24 12:00 Additional Medication Information Tube feeing is a combination of 2Cal, Real Food Blend, MCT Oil, Benical, water, juice given in morning and afternoon. PFSH Acute 2 PFSH: Medical History (Updated 01/08/24 @ 21:15 by Brisa Kay MD) Anemia of chronic disease Depression Peripheral neuropathy Recurrent Clostridioides difficile diarrhea Fracture of femoral neck, right Chronic, nondisplaced, for non operative management to date, follows with [facility] Small bowel obstruction 06/08 C. difficile enteritis Ulcerative (chronic) enterocolitis ALS (amyotrophic lateral sclerosis) Diagnosed in 2019 Surgical History History of oral surgery History of esophageal surgery Family History Denies family history of Diabetes Hypertension Social History Smoking and tobacco/nicotine status: never used tobacco/nicotine Alcohol intake: never Substance/Drug Use: never Vitals/I&O/Wt Last Vital Signs Temp 98.6 F 01/08/24 13:15 Pulse 107 H 01/08/24 16:30 Resp 18 01/08/24 13:15 BP 100/67 01/08/24 16:30 Pulse Ox 95 01/08/24 16:30 O2 Del Method Room Air 01/08/24 13:15 01/08/24 01/08/24 01/08/24 06:59 14:59 22:59 Intake Total 350 / 350 Balance 350 / 350 Weight last 48 hrs Weight 49.895 kg Physical Exam 2 Narrative: Patient is awake and alert. Seen in his wheelchair. He has his home BiPAP/trilogy machine on with nasal tubing in place. He is able to talk in short spurts after removing the mask. Thin build. Pupils are reactive. Mucous membranes are moist. No pooling of oral secretions noted. Neck is supple. Coarse breath sounds with occasional rattling/wheeze on the left more so than the right. Tachycardic but regular rhythm. Abdomen is soft, nontender, PEG tube intact. Extremities are cool distally with some mottled appearing discoloration which states is baseline for him. Data 01/08/24 13:41 01/08/24 13:15 Other Labs: Laboratory Results WBC 19.13 10^3/uL (3.29-11.43) H 01/08/24 13:41 RBC 3.61 10^6/uL (3.85-5.65) L 01/08/24 13:41 Hgb 10.70 g/dL (11.27-16.99) L 01/08/24 13:41 Hct 34.0 % (37-53) L 01/08/24 13:41 MCV 94.2 fl (82-101) 01/08/24 13:41 MCH 29.6 pg (27-33) 01/08/24 13:41 MCHC 31.5 g/dL (30-55) 01/08/24 13:41 RDW 14.7 % (12.1-15.1) 01/08/24 13:41 Plt Count 582 10^3/cmm (157-399) H 01/08/24 13:41 MPV 10.2 fL (7.4-10.4) 01/08/24 13:41 Neut % (Auto) 87.3 % 01/08/24 13:41 Lymph % (Auto) 5.6 % 01/08/24 13:41 [place] % (Auto) 6.3 % 01/08/24 13:41 Eos % (Auto) 0.2 % 01/08/24 13:41 Baso % (Auto) 0.2 % 01/08/24 13:41 Neut # (Auto) 16.71 10^3/uL (1.8-7.7) H 01/08/24 13:41 Lymph # (Auto) 1.1 10^3/uL (0.8-4.8) 01/08/24 13:41 [place] # (Auto) 1.2 10^3/uL (0.2-0.9) H 01/08/24 13:41 Eos # (Auto) 0.0 10^3/uL (0.0-0.8) 01/08/24 13:41 Baso # (Auto) 0.0 10^3/uL (0.0-0.1) 01/08/24 13:41 Nucleated RBC % (auto) 0 % 01/08/24 13:41 Nucleated RBCs # 0.0 /100WBC 01/08/24 13:41 Sodium 140 mmol/L (136-145) 01/08/24 13:15 Potassium 4.4 mmol/L (3.5-5.1) 01/08/24 13:15 Chloride 100 mmol/L (98-107) 01/08/24 13:15 Carbon Dioxide 29 mmol/L (22-29) 01/08/24 13:15 Anion Gap 15.4 (5-19) 01/08/24 13:15 BUN 12 mg/dL (6-20) 01/08/24 13:15 Creatinine 0.2 mg/dL (0.7-1.2) L 01/08/24 13:15 GFR Calculation 500.7 mL/min (90-130) H 01/08/24 13:15 Glucose 114 mg/dL (65-115) 01/08/24 13:15 Calculated Osmolality 291 mOsm/kg (285-295) 01/08/24 13:15 Calcium 9.2 mg/dL (8.5-10.5) 01/08/24 13:15 Total Bilirubin 0.2 mg/dL (0.15-1.2) 01/08/24 13:15 AST 19 U/L (0-40) 01/08/24 13:15 ALT 26 U/L (0-41) 01/08/24 13:15 Alkaline Phosphatase 123 U/L (40-130) 01/08/24 13:15 Total Protein 7.8 g/dL (6.6-8.7) 01/08/24 13:15 Albumin 3.5 g/dL (3.5-5.2) 01/08/24 13:15 Globulin 4.3 g/dL (1.3-4.6) 01/08/24 13:15 Lipase 20 U/L (13-60) 01/08/24 13:15 CT Chest: Radiologist's impression: 01/08/2024 FINDINGS: Lungs: Stable inferior left lower lobe consolidation. There is new consolidating and non consolidating infiltrate in the lingula. There is new consolidating and non consolidating infiltrate in the medial right lower lobe and superior aspect of the left lower lobe concerning for worsening multifocal pneumonia. There are areas of bronchial obstruction in the medial right lower lobe and left lower lobe concerning for mucous plugging. Pleural spaces: Unremarkable. No pneumothorax. No pleural effusion. Heart: Unremarkable. No cardiomegaly. No pericardial effusion. Coronary arteries: No visible calcified coronary artery disease. Lymph nodes: There are small right paratracheal, precarinal and subcarinal lymph nodes, unchanged prior study. Vasculature: Unremarkable. No aortic aneurysm. Bones/joints: Unremarkable. No acute fracture. Soft tissues: Unremarkable. CT/CT chest w con* [id number] IMPRESSION: 1. Worsening bilateral multifocal pneumonia as above. 2. Multifocal areas of bronchial obstruction/mucous plugging in the lower lung zones bilaterally. A&P Assessment and plan (1) Recurrent pneumonia: Multi-focal, bilateral pneumonia in a patient on home antibiotics already, with elevated white blood count. Also tachycardic but has been tachycardic several times recently even when not acutely ill. Had fever at home but none here has been noted thus far. At this point not meeting severe sepsis criteria but at risk for developing such. (2) Multiple tracheobronchial mucus plugs: Related to #1 and #3 (3) ALS (amyotrophic lateral sclerosis): On riluzole and respiratory support with trilogyu/bipap, vest, cough assist. Has seen a nurse staff community health in [facility] but is going to see a nurse staff community health at [facility] before determining who to follow-up with in the future given to Dr. Hdz leaving. (4) Recurrent Clostridioides difficile diarrhea: Recently completed a course of Dificid for another bout of C. difficile colitis. Is on oral vancomycin and a tapering dose given ongoing need for antibiotics from a pulmonary standpoint. Has been following with Dr. Keene outpatient. (5) Ulcerative (chronic) enterocolitis: Chronically on Entyvio. Not currently with indications of acute exacerbation. (6) Peripheral neuropathy: On gabapentin at home (7) Depression: Chronically on nortriptyline and sertraline (8) Anemia of chronic disease: Stable hemoglobin Plan Inpatient admission Will continue with meropenem initiated in the emergency room and vancomycin Pulmonology consultation for planned bronchoscopy as discussed with them Continue home cetirizine Continue home guaifenesin as well as scopolamine patch Respiratory therapy for vest therapy Continue home trilogy/BiPAP Will get blood cultures, not collected thus far as no fever and already on antibiotics prior to admission Oral vancomycin Next dose of the Entyvio is due on January 20 Continue home gabapentin Continue home nortriptyline and sertraline Continue home famotidine VTE prophylaxis: SCDs, no pharmacological DVT prophylaxis secondary to known ulcerative colitis and chronic anemia GI Prophylaxis: on home famotidine Antibiotics: Was on Levaquin and Augmentin at home prior to admission. Received linezolid and meropenem in the emergency room. Meropenem and vancomycin have been continued along with oral vancomycin. Should be noted patient completed a course of Dificid last week. Telemetry: Ordered due to current tachycardia and pneumonia [place]: Not currently indicated Line(s): peripheral IVs Disposition plan: Home with outpatient follow up to primary care provider and ongoing home management noted. Patient follows with Dr. Keene here locally. Have not yet established and nurse staff community health to start seeing after Dr. Hdz's departure. Code Status: Full Code Supportive care otherwise Findings, concerns and plans were discussed with patient and his and they were given an opportunity to ask questions Attestations 2 Medical Necessity Statement*: Anticipated stay greater than two midnights in this gentleman with ALS and recurrent issues with pneumonia and C. difficile colitis this year. Imaging done today shows worsening bilateral pneumonia. Currently on IV antibiotics. Pulmonology is consulted and bronchoscopy is planned for tomorrow. He is requiring utilization of his home BiPAP/trilogy almost [id number] currently when he usually utilizes at night. Coding Level of Care Code 18142 High Time for a total of 80 minutes, includes reviewing past or interval history, examining/interviewing patient, placing orders, discussing plan of care with staff and documenting encounter Diagnoses Recurrent pneumonia J18.9 Multiple tracheobronchial mucus plugs T17.800A ALS (amyotrophic lateral sclerosis) G12.21 Recurrent Clostridioides difficile diarrhea A04.71 Ulcerative (chronic) enterocolitis K51.00 Peripheral neuropathy G62.9 Depression F32.A Anemia of chronic disease D63.8
[2024-01-08 21:17] LABS: Add Urine Microscopic? YES; Bilirubin Urine Neg (Negative); Blood Urine Trace (Negative); Glucose Urine UA Norm (Normal); Ketones Urine 1+ (Negative); Leukocyte Esterase Urine Negative (Negative); Nitrate Urine Negative (Negative); Protein Urine 1+ (Negative); RBC Urine 0-4 /hpf (0-2); Specific Gravity, Urine 1.005 (1.005-1.030); Urine Appearance Clear (CLEAR); Urine Color Yellow (Yellow); Urobilinogen Urine 1 mg/dL (Negative); pH Urine 7 (5-7)
[2024-01-08 21:18] LABS: Add Urine Culture? No; Mucus Urine N /hpf
[2024-01-08] MEDS: vancomycin 1,250 MG/250 ML PIGGYBACK 250 MG IV (21:37)
[2024-01-08] MEDS: famotidine 20 mg Tablet PEG-TUBE (21:45)
[2024-01-08] MEDS: cetirizine 10 mg Tablet PO (21:45)
[2024-01-08] MEDS: sertraline 50 mg Tablet PEG-TUBE (21:45)
[2024-01-09] VITALS (18 sets, daily range): BP systolic 103–127; BP diastolic 70–79; PULSE 99–128; RESP 15–36; TEMP 36.3–37.9; O2SAT 90–100
[2024-01-09] MEDS: vancomycin 1,250 MG/250 ML PIGGYBACK 250 MG IV ×3 (02:54→18:25)
[2024-01-09 04:18] LABS: Basophils # 0.1 10^3/uL (0.0-0.1); Basophils % 0.3 %; Eosinophils # 0.1 10^3/uL (0.0-0.8); Eosinophils % 0.4 %; Hematocrit 33.1 % (37-53); Lymphocytes # 2.3 10^3/uL (0.8-4.8); Lymphocytes % 11.7 %; Mean Corpuscular HGB Conc 31.7 g/dL (30-55); Mean Corpuscular Hemoglobin 30.1 pg (27-33); Mean Corpuscular Volume 94.8 fl (82-101); Mean Platelet Volume 9.8 fL (7.4-10.4); Monocytes # 1.4 10^3/uL (0.2-0.9); Monocytes % 7.2 %; Neutrophils # 15.31 10^3/uL (1.8-7.7); Neutrophils % 79.9 %; Nucleated Red Blood Cells % 0 %; Platelet Count 570 10^3/cmm (157-399); Red Blood Count 3.49 10^6/uL (3.85-5.65); Red Cell Distribution Width 14.6 % (12.1-15.1); White Blood Count 19.17 10^3/uL (3.29-11.43)
[2024-01-09 04:40] LABS: Anion Gap 16.1 (5-19); Blood Urea Nitrogen 9 mg/dL (6-20); Calcium 9.6 mg/dL (8.5-10.5); Carbon Dioxide 30 mmol/L (22-29); Chloride 98 mmol/L (98-107); Glomerular Filtration Rate 500.7 mL/min (90-130); Glucose 104 mg/dL (65-115); Magnesium 1.8 mg/dL (1.7-2.3); Osmolality Calculated 289 mOsm/kg (285-295); Potassium 4.1 mmol/L (3.5-5.1); Sodium 140 mmol/L (136-145)
[2024-01-09 04:47] LABS: INR 1.13 (0.8-1.2); Partial Thromboplastin Time 35.5 SECONDS (23.9-36.7)
[2024-01-09] MEDS: vancomycin 100 mg/1 mL Oral Syringe 125 MG XX ×3 (05:41→20:14)
--- NOTE | 2024-01-09 06:47 | ANES.PREANE2 ---
Pre-Anesthetic Assessment Height/Weight: Height 1.75 m Weight 49.895 kg Temp Pulse Resp BP Pulse Ox O2 Del Method FiO2 98.4 F 113 H 18 114/79 96 BiPAP 21 01/08/24 18:16 01/09/24 06:00 01/09/24 06:00 01/09/24 06:00 01/09/24 06:00 01/09/24 06:00 01/08/24 20:18 Preop Diagnosis: mucous plugging Operation Date: 01/09/24 06:50 Proposed Procedures p Bronchoscopy(Not Applicable) - Rj Menjivar DatarMD Was Beta Fátima taken within 24 hours: N/A Was Clonidine taken within 24 hours: N/A Social No tobacco Exam alert and oriented x 3 Airway Submandibular: within normal limits Cervical ROM: within normal limits Mallampati: Class II Dentition: full History/ROS No significant history except as noted Pulmonary CPAP CV/HEM None reported None reported Hepatic None reported GI PEG Metabolic None reported Musc/skel Weakness ALS Neuropsych None reported Anesthetic Plan ASA status: 4 Anesthesia: General Risk of > 500 ml blood loss (7ml/kg in children): No Medications/Allergies Home Medications Medication Instructions Recorded Confirmed Last Taken Type vedolizumab 300 mg intravenous 300 mg IV DIRECTED 04/24/20 01/08/24 11/14/23 History solution (Entyvio) sertraline 20 mg/mL oral 50 mg feeding tube BEDTIME 05/16/23 01/08/24 01/07/24 21:00 History concentrate (Zoloft) cetirizine 1 mg/mL oral solution 10 mg PO BEDTIME 10/16/23 01/08/24 01/07/24 21:00 History famotidine 40 mg/5 mL (8 mg/mL) 20 mg PO BEDTIME 12/13/23 01/08/24 01/07/24 21:00 History oral suspension gabapentin 250 mg/5 mL oral 500 mg PO BEDTIME 12/13/23 01/08/24 01/07/24 21:00 History solution vancomycin 50 mg/mL oral solution 125 mg (2.5 mL) PO .every other 01/05/24 01/08/24 Unknown Rx day 2 months #80 mL vancomycin 50 mg/mL oral solution 125 mg (2.5 mL) PO BID 7 days #35 01/05/24 01/08/24 01/08/24 09:00 Rx mL vancomycin 50 mg/mL oral solution 125 mg (2.5 mL) PO DAILY 7 days 01/05/24 01/08/24 Unknown Rx #80 mL acetaminophen 500 mg/15 mL oral 1,000 mg feeding tube Q4-5H PRN 01/08/24 01/08/24 01/08/24 15:00 History liquid Fever amoxicillin 875 mg-potassium 1 tab feeding tube BID 01/08/24 01/08/24 01/08/24 09:00 History clavulanate 125 mg tablet fidaxomicin 200 mg tablet (Dificid) 200 mg feeding tube BID PRN c diff 01/08/24 01/08/24 01/02/24 History guaifenesin 100 mg/5 mL oral 600 mg PO BID 01/08/24 01/08/24 01/08/24 09:00 History liquid (Jing-Tussin) levofloxacin 500 mg tablet 500 mg feeding tube DAILY 01/08/24 01/08/24 01/08/24 09:00 History nortriptyline 10 mg/5 mL oral 30 mg feeding tube BEDTIME 01/08/24 01/08/24 01/07/24 21:00 History solution riluzole 50 mg tablet 50 mg PO BID 01/08/24 01/08/24 01/08/24 17:00 History scopolamine base 1 mg over 3 days 0.5 patch transdermal Q2D 01/08/24 01/08/24 01/08/24 09:00 History transdermal patch Allergies Allergy/AdvReac Type Severity Reaction Status Date / Time No Known Allergies Allergy Verified 01/05/24 12:00 Current Medications Generic Name Dose Route Start Last Admin Trade Name Freq PRN Reason Stop Dose Admin Cetirizine HCl 10 mg 01/08/24 21:00 01/08/24 21:45 Cetirizine 10 Mg Tablet PO 10 mg BEDTIME NED Administration Famotidine 20 mg 01/08/24 21:00 01/08/24 21:45 Famotidine 20 Mg Tablet PEG-TUBE 20 mg BEDTIME NED Administration Meropenem 500 mg/ Sodium 50 mls @ 100 mls/hr 01/08/24 23:00 01/08/24 23:38 Chloride IV Infused Q8H NED Infusion Protocol Vancomycin/PEG/NADA/Lysine/Water 1,250 mg in 250 mls @ 250 mls/hr 01/08/24 19:00 01/09/24 03:54 Vancocin IV Infused Q8H NED Infusion Non-Formulary Medication 30 mg 01/08/24 21:00 01/08/24 22:04 Nortriptyline FEED TUBE Not Given BEDTIME NED Non-Formulary Medication 500 mg 01/08/24 21:00 01/08/24 22:04 Gabapentin PO Not Given BEDTIME NED Sertraline HCl 50 mg 01/08/24 21:00 01/08/24 21:45 Sertraline 50 Mg Tablet PEG-TUBE 50 mg BEDTIME NED Administration Vancomycin HCl 125 mg 01/08/24 21:30 01/09/24 05:41 Vancomycin 100 Mg/1 Ml Oral Syringe XX 125 mg Q8H NED Administration Additional Medication Information Tube feeing is a combination of 2Cal, Real Food Blend, MCT Oil, Benical, water, juice given in morning and afternoon. [facility] Anesthesia Medical History Anemia of chronic disease Depression Peripheral neuropathy Recurrent Clostridioides difficile diarrhea Fracture of femoral neck, right Chronic, nondisplaced, for non operative management to date, follows with [facility] Small bowel obstruction 06/08 C. difficile enteritis Ulcerative (chronic) enterocolitis ALS (amyotrophic lateral sclerosis) Diagnosed in 2019 Surgical History History of oral surgery History of esophageal surgery Family History Denies family history of Diabetes Hypertension Social History Smoking and tobacco/nicotine status: never used tobacco/nicotine Alcohol intake: never Substance/Drug Use: never Data Anesthesia 01/09/24 03:57 01/09/24 03:57 Short CBC 01/08/24 01/09/24 Range/Units 13:41 03:57 WBC 19.13 H 19.17 H (3.29-11.43) 10^3/uL Hgb 10.70 L 10.50 L (11.27-16.99) g/dL Hct 34.0 L 33.1 L (37-53) % MCV 94.2 94.8 (82-101) fl Plt Count 582 H 570 H (157-399) 10^3/cmm Neut % (Auto) 87.3 79.9 % Neut # (Auto) 16.71 H 15.31 H (1.8-7.7) 10^3/uL BMP 01/08/24 01/09/24 13:15 03:57 Sodium 140 140 Potassium 4.4 4.1 Chloride 100 98 Carbon Dioxide 29 30 H BUN 12 9 Creatinine 0.2 L 0.2 L Glucose 114 104 Calcium 9.2 9.6 Liver Function 01/08/24 Range/Units 13:15 Total Bilirubin 0.2 (0.15-1.2) mg/dL AST 19 (0-40) U/L ALT 26 (0-41) U/L Alkaline Phosphatase 123 (40-130) U/L Albumin 3.5 (3.5-5.2) g/dL Urine 01/08/24 Range/Units 20:30 Urine Color Yellow (Yellow) Urine Appearance Clear (CLEAR) Urine pH 7 (5-7) Ur Specific [place] 1.005 (1.005-1.030) Urine Protein 1+ H (Negative) Urine Glucose (UA) Norm (Normal) Urine Ketones 1+ H (Negative) Urine Nitrate Negative (Negative) Urine Bilirubin Neg (Negative) Ur Leukocyte Esterase Negative (Negative) Urine RBC 0-4 H (0-2) /hpf Urine WBC None (0-5) /hpf Coags 01/09/24 03:57 PT 14.80 INR 1.13 APTT 35.5 Microbiology 01/09/24 04:02 Blood Culture - Preliminary Blood SPECIMEN COLLECTED 01/09/24 03:57 Blood Culture - Preliminary Blood SPECIMEN COLLECTED Cardiac Studies: No Data to Display
[2024-01-09] MEDS: sodium chloride 0.9% 1,000 ML 30 ML IV (07:18)
[2024-01-09] MEDS: lidocaine 1% INJ 10 mL (per mL) XX (07:34)
[2024-01-09] MEDS: meropenem 500 MG in sodium chloride 0.9% (plus) 50 ML 100 MG IV ×3 (08:16→23:31)
--- NOTE | 2024-01-09 08:40 | PC.NURSE ---
received from gi lab post bronchoscopy.report received.pt opens eyes to name...then falls back asleep.st on monitor 105-110.axillary temp is 98.0 F.oxygen saturation is adeq.
--- NOTE | 2024-01-09 08:45 | PM.OP ---
Operative Report Date of procedure: January 09, 2024 Pre-op diagnosis: suspected mucus plugging Post-op diagnosis: same Post-op findings: mucus plugging Procedure done: 92670-Et Bronchoscope w/Washings or airway inspection 63236--Ab Bronchoscope w/BAL [id number] w/ therapeutic aspiration of the tracheobronchial tree (clearance of airway secretions, removal of mucus plugs) Surgeon: Rj Hdz MD Complications: None Brief History: Silvestre Espinosa is a 53 year old male with history of past medical history of ALS, chronically in a wheelchair, history of oropharyngeal dysphagia, failed swallow eval's, currently has a PEG in place with exclusive feeding via PEG tube. -being treated for recurrent left lower lobe pneumonia with several courses of Augmentin comes to emergency room for worsening cough shortness of breath again this week. After admission patient had a CTA which showed worsening bilateral infiltrates and persisitent LLL atelectasis Pulmonary service evaluated and recommended for bronchoscopic inspection of airways and airway clearance. Procedure: 51849-Xw Bronchoscope w/Washings or airway inspection 92217--Of Bronchoscope w/BAL [id number] w/ therapeutic aspiration of the tracheobronchial tree (clearance of airway secretions, removal of mucus plugs) Pre-Operative Diagnosis: Mucous plugging and pneumonia Post-Operative Diagnosis: Same Indication: CT evidence of bilateral infiltrates and persistent left lower lobe atelectasis likely secondary to endobronchial obstruction/mucous plugging Anesthesia: General anesthesia. Local anesthesia: The macie in the right and left mainstem bronchi were anesthetized with 1% lidocaine, 3 mL. Description of the procedure: The procedure was explained to the patient and the consent was obtained. The patient was brought to the OR. The patient underwent induction for general anesthesia and laryngeal mask airway (LMA) was placed. The bronchoscope was advanced through the LMA. Vocal cords are mobile. 1% lidocaine 1 mL instilled over the vocal cords. The bronchoscope was passed through the vocal cords into the trachea. There were copious thick purulent secretions which were suctioned right away. Tracheal mucosa appeared normal, no endotracheal lesion was seen. The macie was sharp. 1 mL each of 1% lidocaine was instilled in the trachea the right and left mainstem bronchi for local anesthesia. In a systematic manner bilateral bronchial tree was then examined. The bronchoscope was then introduced into the right mainstem bronchus. The right upper lobe, right middle lobe and right lower lobe bronchi were examined up to the third subsegmental level and no abnormalities were identified. The mucosa appeared normal with no endobronchial lesions, active bleeding or mucous plugs. There were copious thick purulent secretions blocking right bronchus intermedius; Right middle lobe segments and right lower lobe segments - all airways were suctioned right away. The bronchoscope was advanced into the left mainstem bronchus. There was some thick mucus secretions throughout left airway which were suctioned. The left upper lobe, and lingula were examined up to the third subsegmental level and no abnormalities were identified. There were copious thick mucous plugs which completely occluding left lower lobe airway, all the secretions were thoroughly suctioned and cleared the airways. bronchoscope and advanced further into left lower lobe segments and did not notice any endobronchial lesions. Bronchoalveolar lavage was taken from Right lower lobe and as well as from left lower lobe Samples: 1. Bronchoalveolar lavage was performed after wedging the bronchoscope at the entrance of medial segment of right lower lobe. 30 mL of saline was instilled, fluid return was 15 mL. Bronchoalveolar lavage specimen was sent for cell count and differential, gram stain and culture, cytology. 2. Bronchoalveolar lavage was performed after wedging the bronchoscope at the entrance of medial segment of left lower lobe. 50 mL of saline was instilled, fluid return was 20 mL. Bronchoalveolar lavage specimen was sent for cell count and differential, gram stain and culture, cytology Complications: None.The patient was extubated and brought to the PACU in stable condition. Disposition: Patient can be transferred to unit .-encouraged to use incentive spirometry, chest vest. Pt and his are aware that I am going to call them with the results. Related Problem List Diagnoses (1) Left lower lobe consolidation: (2) Recurrent pneumonia: (3) ALS (amyotrophic lateral sclerosis): (4) At risk for aspiration: (5) Weak cough:
[2024-01-09] MEDS: guaiFENesin 100 mg/5 mL UDC 10 mL 600 MG PEG-TUBE ×2 (08:54→17:17)
[2024-01-09 09:18] LABS: Apprearance, Bronch Wash Cloudy (CLEAR); Color, Bronc Wash Pale Yellow; Cyto Order Verification Order Verified; PATH Referral Yes
[2024-01-09 09:19] LABS: Apprearance, Bronch Wash Cloudy (CLEAR); Bronch Source LEFT LOWER LOBE BAL; Color, Bronc Wash Red; Cyto Order Verification No Order; PATH Referral Yes
--- NOTE | 2024-01-09 09:42 | P.PN_ITS ---
Subjective 2 Subjective: pt underwent bronchoscopy and found to have copius purulent secretions in trachea, right bronchus intermedius, right lower lobe, right middle lobe segments, left lower lobe airways - suctioned and sent Broncheoalveolar lavage for cultures and cytology. There are no endobronchial lesions. Medications: Reviewed: Yes Vitals/I&O/Wt Last Vital Signs Temp 98.0 F 01/09/24 08:07 Pulse 105 H 01/09/24 08:19 Resp 18 01/09/24 08:19 BP 127/71 01/09/24 08:07 Pulse Ox 96 01/09/24 08:19 O2 Del Method BiPAP 01/09/24 08:19 FiO2 21 01/09/24 08:19 01/08/24 01/09/24 01/09/24 22:59 06:59 14:59 Intake Total 620 / 620 300 / 920 350 / 350 Balance 620 / 620 300 / 920 350 / 350 Weight last 48 hrs Weight 110 lb Weight 110 lb Weight 110 lb Physical Exam 2 Narrative: General: alert, NAD, sitting in motorized wheelchair HEENT: conj clear, EOMI, PERRL, mmm, Neck: supple, no meningismus Heme: no cervical LAP Respiratory: Inspection: No visible deformity of the chest wall Palpation: Trachea is mildly deviated to the right, bilateral symmetric expansion Percussion: Bilateral tympanic percussion note both anterior and posteriorly Auscultation: Reduced breath sounds left lower lung zone Cardiovascular: rrr, nl s1s2, no mrg Abdomen: soft, nt, nd, no r/g, bs+ Extremities: pulses +, no edema, no c/c : no CVA tenderness Skin: intact, no rash MSK: no back or neck pain Neurologic: Chronically wheelchair-bound with minimal motor activity Data 01/09/24 03:57 01/09/24 03:57 Other Labs: Laboratory Results WBC 19.17 10^3/uL (3.29-11.43) H 01/09/24 03:57 RBC 3.49 10^6/uL (3.85-5.65) L 01/09/24 03:57 Hgb 10.50 g/dL (11.27-16.99) L 01/09/24 03:57 Hct 33.1 % (37-53) L 01/09/24 03:57 MCV 94.8 fl (82-101) 01/09/24 03:57 MCH 30.1 pg (27-33) 01/09/24 03:57 MCHC 31.7 g/dL (30-55) 01/09/24 03:57 RDW 14.6 % (12.1-15.1) 01/09/24 03:57 Plt Count 570 10^3/cmm (157-399) H 01/09/24 03:57 MPV 9.8 fL (7.4-10.4) 01/09/24 03:57 Neut % (Auto) 79.9 % 01/09/24 03:57 Lymph % (Auto) 11.7 % 01/09/24 03:57 Treasure % (Auto) 7.2 % 01/09/24 03:57 Eos % (Auto) 0.4 % 01/09/24 03:57 Baso % (Auto) 0.3 % 01/09/24 03:57 Neut # (Auto) 15.31 10^3/uL (1.8-7.7) H 01/09/24 03:57 Lymph # (Auto) 2.3 10^3/uL (0.8-4.8) 01/09/24 03:57 Treasure # (Auto) 1.4 10^3/uL (0.2-0.9) H 01/09/24 03:57 Eos # (Auto) 0.1 10^3/uL (0.0-0.8) 01/09/24 03:57 Baso # (Auto) 0.1 10^3/uL (0.0-0.1) 01/09/24 03:57 Nucleated RBC % (auto) 0 % 01/09/24 03:57 Nucleated RBCs # 0.0 /100WBC 01/09/24 03:57 PT 14.80 SECONDS (12.1-14.9) 01/09/24 03:57 INR 1.13 (0.8-1.2) 01/09/24 03:57 APTT 35.5 SECONDS (23.9-36.7) 01/09/24 03:57 Sodium 140 mmol/L (136-145) 01/09/24 03:57 Potassium 4.1 mmol/L (3.5-5.1) 01/09/24 03:57 Chloride 98 mmol/L (98-107) 01/09/24 03:57 Carbon Dioxide 30 mmol/L (22-29) H 01/09/24 03:57 Anion Gap 16.1 (5-19) 01/09/24 03:57 BUN 9 mg/dL (6-20) 01/09/24 03:57 Creatinine 0.2 mg/dL (0.7-1.2) L 01/09/24 03:57 GFR Calculation 500.7 mL/min (90-130) H 01/09/24 03:57 Glucose 104 mg/dL (65-115) 01/09/24 03:57 Calculated Osmolality 289 mOsm/kg (285-295) 01/09/24 03:57 Calcium 9.6 mg/dL (8.5-10.5) 01/09/24 03:57 Magnesium 1.8 mg/dL (1.7-2.3) 01/09/24 03:57 Total Bilirubin 0.2 mg/dL (0.15-1.2) 01/08/24 13:15 AST 19 U/L (0-40) 01/08/24 13:15 ALT 26 U/L (0-41) 01/08/24 13:15 Alkaline Phosphatase 123 U/L (40-130) 01/08/24 13:15 Total Protein 7.8 g/dL (6.6-8.7) 01/08/24 13:15 Albumin 3.5 g/dL (3.5-5.2) 01/08/24 13:15 Globulin 4.3 g/dL (1.3-4.6) 01/08/24 13:15 Lipase 20 U/L (13-60) 01/08/24 13:15 Urine Color Yellow (Yellow) 01/08/24 20:30 Urine Appearance Clear (CLEAR) 01/08/24 20:30 Urine pH 7 (5-7) 01/08/24 20:30 Ur Specific Orange 1.005 (1.005-1.030) 01/08/24 20:30 Urine Protein 1+ (Negative) H 01/08/24 20:30 Urine Glucose (UA) Norm (Normal) 01/08/24 20:30 Urine Ketones 1+ (Negative) H 01/08/24 20:30 Urine Blood Trace (Negative) H 01/08/24 20:30 Urine Nitrate Negative (Negative) 01/08/24 20:30 Urine Bilirubin Neg (Negative) 01/08/24 20:30 Urine Urobilinogen 1 mg/dL (Negative) H 01/08/24 20:30 Ur Leukocyte Esterase Negative (Negative) 01/08/24 20:30 Urine RBC 0-4 /hpf (0-2) H 01/08/24 20:30 Urine WBC None /hpf (0-5) 01/08/24 20:30 Ur Squamous Epith Cells None /hpf (0-5) 01/08/24 20:30 Amorphous Sediment Not Reportable 01/08/24 20:30 Urine Bacteria None /hpf (NONE) 01/08/24 20:30 Urine Mucus N /hpf 01/08/24 20:30 Bronch Specimen Source Left lower lobe bal 01/09/24 07:45 Bronchial Fluid Color Red 01/09/24 07:45 Bronchial Fluid Appearance Cloudy (CLEAR) 01/09/24 07:45 Bronchial Diff Comment Yes 01/09/24 07:45 Micro: Microbiology 01/09/24 04:02 Blood Culture - Preliminary Blood SPECIMEN COLLECTED 01/09/24 03:57 Blood Culture - Preliminary Blood SPECIMEN COLLECTED A&P Assessment and plan (1) Left lower lobe consolidation: (2) Recurrent pneumonia: (3) ALS (amyotrophic lateral sclerosis): (4) At risk for aspiration: (5) Weak cough: Plan # Recurrent left lower lobe pneumonia with persistent atelectasis # At high risk for aspiration due to underlying ALS -Received at least 4-5 rounds of Augmentin since July 2023 with 2 hospitalizations in October 2023 and November 2023 -This admission again CT imaging suggestive of worsening left lower lobe consolidation with questionable endobronchial mucous plug/lesion -S/p bronchoscopy 10/16/2023 and 12/15/2023-found to have copious thick mucous plugs which were completely occluding left lower lobe airways, all the secretions were thoroughly suctioned and cleared the airways. Therapeutic bronchoscope was replaced with diagnostic bronchoscope and advanced further into left lower lobe segments and did not notice any endobronchial lesions. -BAL cultures grew Streptococcus in October 2023 and Staph aureus in November 2023. Patient was treated with antibiotics. BAL Aspergillus, beta D glucan, blasto mitis antibodies, mycobacterial cultures, fungal cultures were all negative. -Cytology showed atypical degenerating cells-no definitive well-preserved diagnostic malignant cells identified. -There is a concern for underlying malignancy causing endobronchial lesion- however diagnostic bronchoscopic examination did not reveal any endobronchial lesions and both times cultures were positive for bacteria and he was treated with antibiotics. I ordered PET CT scan as outpatient-however authorization has to come through [place] and it is taking time. -Today underwent repeat bronchoscopic examination of airways, clearance of airways, obtained bronchoalveolar lavage to send for repeat cultures and cytology; No endobronchial lesions noted. -Okay to cover with vancomycin and meropenem for broader coverage and healthcare associated pneumonia - ordered out pt PETct - pending [facility] authorization -Overall due to his underlying ALS-patient is unable to expectorate effectively. Recommended to continue chest vest therapy 3 times daily and CoughAssist device # ALS -Uses noninvasive ventilator at nighttime Attestations 2 Medical Necessity Statement*: continue IV antibiotics Time Spent in Patient Care: Greater than 35 minutes (>than 50% of time spent in counselling and/or direct pt care on unit) . Critical Care Time: The high probability of a clinically significant, sudden or life threatening deterioration of the patient's [Pulmonary] system(s) required my full and direct attention, intervention and personal management. The critical care time is as shown. This time is in addition to time spent performing any reported procedures but includes the following: [x] Data and vital sign review and interpretation [x] Patient assessment, examination and intervention [x] Documentation [x] Medication orders and management Critical Care Time (min): 43 Coding Level of Care Code Acute Code for Chg Fwd Diagnoses Left lower lobe consolidation J18.1 Recurrent pneumonia J18.9 ALS (amyotrophic lateral sclerosis) G12.21 At risk for aspiration Z91.89 Weak cough R05.8 Time Spent (min) 43
[2024-01-09 10:07] LABS: D Dimer 1.35 ug/mLFEU (0-0.59)
[2024-01-09] MEDS: RILUZOLE 50 MG 50 EACH PO ×2 (10:36→17:17)
--- NOTE | 2024-01-09 10:40 | USCV_ITS ---
Silvestre Espinosa Age: 53 Gender: M : 1970 Exam Date: 01/09/2024 11:09 Ordering Phys: Raymundo Diaz MD Technologist: [employer] [place] [facility] [place]: swelling PROCEDURES: The venous duplex Doppler examination of both lower extremities was performed in the standard fashion. The following venous structures were evaluated: common femoral vein, profunda vein, proximal portion of the greater saphenous vein, superficial femoral vein, and the popliteal vein. FINDINGS: Normal 2-D Doppler and augmentation and compressibility throughout the lower extremity venous structures. Additional imaging through the proximal calf veins also reveals no thrombus. Limited evaluation of the greater saphenous vein is patent with no thrombus. CONCLUSIONS No evidence of right lower extremity DVT. No evidence of left lower extremity DVT. Jackson Vicente MD (Electronically Signed) Final Date: 09 January 2024 13:37 S
--- NOTE | 2024-01-09 10:40 | CTR_ITS ---
PROCEDURE INFORMATION: Exam: CTA Chest With Contrast Exam date and time: 01/09/2024 2:15 PM Age: 53 years old Clinical indication: Shortness of breath; Prior surgery; Surgery date: 6+ months; Surgery type: Peg, esophagus; Additional info: St hypoxia als TECHNIQUE: Imaging protocol: Computed tomographic angiography of the chest with contrast. Exam focused on the arteries. 3D rendering (Not supervised by radiologist): MIP and/or 3D reconstructed images were created by the technologist. Radiation optimization: All CT scans at this facility use at least one of these dose optimization techniques: automated exposure control; mA and/or kV adjustment per patient size (includes targeted exams where dose is matched to clinical indication); or iterative reconstruction. Contrast material: OMNI 350; Contrast volume: 100 ml; Contrast route: INTRAVENOUS (IV); COMPARISON: CT angio chest PE protcl [id number] 10/16/2023 8:18 PM RADIATION DOSE METRICS: Total DLP (mGy-cm): 243.49 FINDINGS: Pulmonary arteries: Evaluation for pulmonary thromboembolism is limited beyond the segmental level due to respiratory motion. No evidence of PE. There is hypoattenuation within subsegmental branches of the left and right lower lobes favored to be secondary to motion as well as perfusional changes related to consolidated lung parenchyma. Aorta: No evidence of aneurysmal dilatation or dissection of the thoracic aorta. Thyroid: Grossly unremarkable. Lungs: Lingular and left lower lobe consolidation suggestive of pneumonia. Additional airspace opacities in the right lower lobe with focal consolidation in the medial costophrenic sulcus compatible with pneumonia. Pleural spaces: No evidence of pleural effusion. No pneumothorax. Heart: No cardiomegaly. No pericardial effusion. Mediastinal space: No evidence of mediastinal mass, fluid collection or hematoma. Lymph nodes: There is reactive mediastinal and hilar adenopathy. Bones/joints: No evidence of acute fracture or aggressive osseous lesion. Soft tissues: No evidence of fluid collection or hematoma in the superficial soft tissues. Other findings: No evidence of acute abnormality in the upper abdomen. CT/CT angio chest PE protcl [id number] IMPRESSION: 1. Multifocal pneumonia, left worse than right. 2. No evidence of PE or acute aortic abnormality.
[2024-01-09 11:11] LABS: Total Cells Counted Bronch 200
[2024-01-09 11:16] LABS: Total Cells Counted Bronch 200
--- NOTE | 2024-01-09 12:05 | P.PN_ITS ---
Subjective 2 Subjective: Status post bronchoscopy, had a detailed discussion with the family at the bedside Bronchoscopy done today by Dr. Chavez Spoke with Dr. Chavez today Patient will need to stay in the hospital until we get final culture report which will take at least 2 to 3 days, Will consult ID overnight As per the family there is a plan to go to [facility] January 29 for fecal transplant for recurrent C. difficile As per the family last dose of fidaxomicin was last Monday and then patient was started on vancomycin for worsening of symptoms Secondary to fever he has been on levofloxacin and amoxicillin I requested ICU nurse to start Cdiff protocol and isolation Tachycardia noted requested D-dimer which came back high, request venous Doppler and CT chest to rule out thromboembolic disease No sacral ulcer as per the staff and the family Vitals/I&O/Wt Last Vital Signs Temp 98.2 F 01/09/24 10:00 Pulse 114 H 01/09/24 10:00 Resp 23 H 01/09/24 10:00 BP 107/70 01/09/24 10:00 Pulse Ox 91 01/09/24 10:00 O2 Del Method BiPAP 01/09/24 08:19 FiO2 21 01/09/24 08:19 01/08/24 01/09/24 01/09/24 22:59 06:59 14:59 Intake Total 620 / 620 300 / 920 470 / 470 Balance 620 / 620 300 / 920 470 / 470 Weight last 48 hrs Weight 49.895 kg Weight 49.895 kg Weight 49.895 kg Physical Exam 2 Narrative: Patient is resting comfortably Bilateral breath sounds with mild rhonchi PEG tube in place no active leakage Lower extremity I did not notice any swelling S1, S2 sinus tachycardia Patient resting comfortably Neuroexam is limited as patient is resting Abdomen soft Data 01/09/24 03:57 01/09/24 03:57 Micro: Microbiology 01/09/24 04:02 Blood Culture - Preliminary Blood SPECIMEN COLLECTED 01/09/24 03:57 Blood Culture - Preliminary Blood SPECIMEN COLLECTED A&P Assessment and plan (1) Depression: (2) Anemia of chronic disease: (3) C. difficile enteritis: (4) Recurrent Clostridioides difficile diarrhea: (5) ALS (amyotrophic lateral sclerosis): (6) Peripheral neuropathy: (7) Recurrent pneumonia: (8) At risk for aspiration: (9) Weak cough: (10) Multiple tracheobronchial mucus plugs: (11) Left lower lobe consolidation: (12) D-dimer, elevated: Plan Recurrent pneumonia related to inability to expectorate secretions Mucous plug with purulence noted during bronchoscopy Postobstructive pneumonia Continue broad-spectrum antibiotics Afebrile Tachycardia Will request procalcitonin and lactic acid Monitor for development of sepsis during hospitalization he was not diagnosed with sepsis at the time of admission Has significant white count with tachycardia Previous BAL cultures are positive for bacterial infection which were treated awaiting PET scan to rule out malignant lesion previous mycobacterial, Aspergillus, fungal cultures negative Previous BAL showed Streptococcus, Staph aureus BiPAP dependent related to ALS, inability to clear secretions Continue chest vest, Mucomyst therapy Continue BiPAP usage Nursing care: Frequent positioning, patient does not want to be lifted, he normally needs assistance to get up sit up in his bed Care should be taken not to cause chin tuck or significant flexion of neck to avoid airway obstruction This was related to the ICU nurse who was present during my evaluation No sacral ulcer as per the staff and the family PEG tube feeding patient gets 1500 taurus/day through PEG tube via 2Cal once daily feeding tube regimen, patient gets nauseous but no recent vomiting episodes Recurrent C. difficile Plan for fecal transplant January 29 Will consult ID for further recommendations Will wait until we get final culture report before discharge patient Abnormal D-dimer: Requested CTA chest and venous Doppler to rule out thromboembolic disease ALS: Continue riluzole, noninvasive ventilator at nighttime Full code N.p.o. Attestations 2 Medical Necessity Statement*: Continue medical management in the ICU, patient is high level of care secondary to significant diseases such as ALS, IBD Diagnoses Depression F32.A Anemia of chronic disease D63.8 C. difficile enteritis A04.72 Recurrent Clostridioides difficile diarrhea A04.71 ALS (amyotrophic lateral sclerosis) G12.21 Peripheral neuropathy G62.9 Recurrent pneumonia J18.9 At risk for aspiration Z91.89 Weak cough R05.8 Multiple tracheobronchial mucus plugs T17.800A Left lower lobe consolidation J18.1 D-dimer, elevated R79.89
--- NOTE | 2024-01-09 13:10 | ANE.PACU2 ---
Inpatient post-anesthesia follow up: Airway intact: Yes Vital signs: Temperature 97.4 F Pulse Rate 116 Respiratory Rate 23 Blood Pressure 107/70 Pulse Oximetry 91 Oxygen Delivery Me thod BiPAP Oxygen Flow Rate Fraction of Inspir ed Oxygen 21 Hydration adequate: Yes Nausea and vomiting: No Pain level: 1 Mental status: Baseline
[2024-01-09] MEDS: enoxaparin 30 mg/0.3 mL Syringe SUBCUT (13:16)
[2024-01-09] MEDS: iohexol 350 mg/mL 500 mL Btl (per mL) IV (14:19)
[2024-01-09] MEDS: acetaminophen 325 mg Tablet 650 MG PEG-TUBE (14:49)
--- NOTE | 2024-01-09 21:22 | PC.NURSE ---
Patient's requested we use home meds as they are liquid and to be given through peg tube.
[2024-01-10] VITALS (15 sets, daily range): BP systolic 114–134; BP diastolic 75–101; PULSE 94–115; RESP 16–27; TEMP 36.6–37.4; O2SAT 89–96
[2024-01-10] MEDS: vancomycin 1,250 MG/250 ML PIGGYBACK 250 MG IV ×3 (03:43→18:30)
[2024-01-10 04:09] LABS: Basophils # 0.1 10^3/uL (0.0-0.1); Basophils % 0.4 %; Eosinophils # 0.3 10^3/uL (0.0-0.8); Eosinophils % 1.6 %; Hematocrit 31.6 % (37-53); Lymphocytes # 2.4 10^3/uL (0.8-4.8); Mean Corpuscular HGB Conc 31.6 g/dL (30-55); Mean Corpuscular Hemoglobin 29.9 pg (27-33); Mean Corpuscular Volume 94.6 fl (82-101); Mean Platelet Volume 10.2 fL (7.4-10.4); Monocytes % 6.5 %; Neutrophils # 12.12 10^3/uL (1.8-7.7); Neutrophils % 76.1 %; Nucleated Red Blood Cells % 0 %; Platelet Count 597 10^3/cmm (157-399); Red Blood Count 3.34 10^6/uL (3.85-5.65); Red Cell Distribution Width 14.8 % (12.1-15.1); White Blood Count 15.94 10^3/uL (3.29-11.43)
[2024-01-10 04:31] LABS: Anion Gap 15.6 (5-19); Blood Urea Nitrogen 8 mg/dL (6-20); Calcium 9.2 mg/dL (8.5-10.5); Carbon Dioxide 30 mmol/L (22-29); Chloride 100 mmol/L (98-107); Glomerular Filtration Rate 500.7 mL/min (90-130); Glucose 97 mg/dL (65-115); Osmolality Calculated 292 mOsm/kg (285-295); Potassium 3.6 mmol/L (3.5-5.1); Sodium 142 mmol/L (136-145)
[2024-01-10 04:35] LABS: C Reactive Protein 201.6 mg/L (0.0-4.9); Lactic Sepsis W/Reflex 0.8 mmol/L (0.5-2.2)
[2024-01-10 04:38] LABS: Procalcitonin 0.21 ng/mL (0-0.5)
[2024-01-10] MEDS: vancomycin 100 mg/1 mL Oral Syringe 125 MG XX ×3 (06:22→21:06)
[2024-01-10] MEDS: scopolamine 1.5 Patch 0.5 PATCH TRANSDERMA (08:45)
[2024-01-10] MEDS: guaiFENesin 100 mg/5 mL UDC 10 mL 600 MG PEG-TUBE ×2 (08:47→17:27)
[2024-01-10] MEDS: RILUZOLE 50 MG 50 EACH PO ×2 (08:47→17:27)
[2024-01-10] MEDS: meropenem 500 MG in sodium chloride 0.9% (plus) 50 ML 100 MG IV ×2 (08:48→17:26)
--- NOTE | 2024-01-10 09:54 | P.PN_ITS ---
Subjective 2 Subjective: Seen patient at bedside in ICU-reports he is feeling better and bronchoscopy helped Tmax 100.3 noted overnight White count improved to 15 K today from 19 K yesterday Hemoglobin stable at 10 BMP is unremarkable lactic acid is normal no significant procalcitonin CT chest showed bilateral pneumonia Medications: Reviewed: Yes Medication Review Details: Tube feeing is a combination of 2Cal, Real Food Blend, MCT Oil, Benical, water, juice given in morning and afternoon. Vitals/I&O/Wt Last Vital Signs Temp 99.4 F 01/10/24 07:21 Pulse 106 H 01/10/24 08:45 Resp 16 01/10/24 07:55 BP 134/90 01/10/24 08:45 Pulse Ox 95 01/10/24 07:55 O2 Del Method BiPAP 01/10/24 07:55 FiO2 21 01/10/24 07:55 01/09/24 01/10/24 01/10/24 22:59 06:59 14:59 Intake Total 350 / 1490 50 / 1540 300 / 300 Balance 350 / 1490 50 / 1540 300 / 300 Weight last 48 hrs Weight 121 lb 4.8 oz Weight 121 lb 4.8 oz Weight 110 lb Weight 110 lb Weight 110 lb Physical Exam 2 Narrative: General: alert, NAD, sitting in motorized wheelchair HEENT: conj clear, EOMI, PERRL, mmm, Neck: supple, no meningismus Heme: no cervical LAP Respiratory: Inspection: No visible deformity of the chest wall Palpation: Trachea is mildly deviated to the right, bilateral symmetric expansion Percussion: Bilateral tympanic percussion note both anterior and posteriorly Auscultation: Reduced breath sounds left lower lung zone Cardiovascular: rrr, nl s1s2, no mrg Abdomen: soft, nt, nd, no r/g, bs+ Extremities: pulses +, no edema, no c/c : no CVA tenderness Skin: intact, no rash MSK: no back or neck pain Neurologic: Chronically wheelchair-bound with minimal motor activity Data 01/10/24 03:37 01/10/24 03:37 Other Labs: Radiology Impressions Chest CTA 01/09/24 10:40 IMPRESSION: 1. Multifocal pneumonia, left worse than right. 2. No evidence of PE or acute aortic abnormality. Laboratory Results WBC 15.94 10^3/uL (3.29-11.43) H 01/10/24 03:37 RBC 3.34 10^6/uL (3.85-5.65) L 01/10/24 03:37 Hgb 10.00 g/dL (11.27-16.99) L 01/10/24 03:37 Hct 31.6 % (37-53) L 01/10/24 03:37 MCV 94.6 fl (82-101) 01/10/24 03:37 MCH 29.9 pg (27-33) 01/10/24 03:37 MCHC 31.6 g/dL (30-55) 01/10/24 03:37 RDW 14.8 % (12.1-15.1) 01/10/24 03:37 Plt Count 597 10^3/cmm (157-399) H 01/10/24 03:37 MPV 10.2 fL (7.4-10.4) 01/10/24 03:37 Neut % (Auto) 76.1 % 01/10/24 03:37 Lymph % (Auto) 15.0 % 01/10/24 03:37 [place] % (Auto) 6.5 % 01/10/24 03:37 Eos % (Auto) 1.6 % 01/10/24 03:37 Baso % (Auto) 0.4 % 01/10/24 03:37 Neut # (Auto) 12.12 10^3/uL (1.8-7.7) H 01/10/24 03:37 Lymph # (Auto) 2.4 10^3/uL (0.8-4.8) 01/10/24 03:37 [place] # (Auto) 1.0 10^3/uL (0.2-0.9) H 01/10/24 03:37 Eos # (Auto) 0.3 10^3/uL (0.0-0.8) 01/10/24 03:37 Baso # (Auto) 0.1 10^3/uL (0.0-0.1) 01/10/24 03:37 Nucleated RBC % (auto) 0 % 01/10/24 03:37 Nucleated RBCs # 0.0 /100WBC 01/10/24 03:37 PT 14.80 SECONDS (12.1-14.9) 01/09/24 03:57 INR 1.13 (0.8-1.2) 01/09/24 03:57 APTT 35.5 SECONDS (23.9-36.7) 01/09/24 03:57 D-Dimer 1.35 ug/mLFEU (0-0.59) H 01/09/24 03:57 Sodium 142 mmol/L (136-145) 01/10/24 03:37 Potassium 3.6 mmol/L (3.5-5.1) 01/10/24 03:37 Chloride 100 mmol/L (98-107) 01/10/24 03:37 Carbon Dioxide 30 mmol/L (22-29) H 01/10/24 03:37 Anion Gap 15.6 (5-19) 01/10/24 03:37 BUN 8 mg/dL (6-20) 01/10/24 03:37 Creatinine 0.2 mg/dL (0.7-1.2) L 01/10/24 03:37 GFR Calculation 500.7 mL/min (90-130) H 01/10/24 03:37 Glucose 97 mg/dL (65-115) 01/10/24 03:37 Calculated Osmolality 292 mOsm/kg (285-295) 01/10/24 03:37 Lactic Acid 0.8 mmol/L (0.5-2.2) 01/10/24 03:37 Calcium 9.2 mg/dL (8.5-10.5) 01/10/24 03:37 Magnesium 1.8 mg/dL (1.7-2.3) 01/09/24 03:57 Total Bilirubin 0.2 mg/dL (0.15-1.2) 01/08/24 13:15 AST 19 U/L (0-40) 01/08/24 13:15 ALT 26 U/L (0-41) 01/08/24 13:15 Alkaline Phosphatase 123 U/L (40-130) 01/08/24 13:15 C-Reactive Protein 201.6 mg/L (0.0-4.9) H 01/10/24 03:37 Total Protein 7.8 g/dL (6.6-8.7) 01/08/24 13:15 Albumin 3.5 g/dL (3.5-5.2) 01/08/24 13:15 Globulin 4.3 g/dL (1.3-4.6) 01/08/24 13:15 Lipase 20 U/L (13-60) 01/08/24 13:15 Procalcitonin 0.21 ng/mL (0-0.5) 01/10/24 03:37 Urine Color Yellow (Yellow) 01/08/24 20:30 Urine Appearance Clear (CLEAR) 01/08/24 20:30 Urine pH 7 (5-7) 01/08/24 20:30 Ur Specific [place] 1.005 (1.005-1.030) 01/08/24 20:30 Urine Protein 1+ (Negative) H 01/08/24 20:30 Urine Glucose (UA) Norm (Normal) 01/08/24 20:30 Urine Ketones 1+ (Negative) H 01/08/24 20:30 Urine Blood Trace (Negative) H 01/08/24 20:30 Urine Nitrate Negative (Negative) 01/08/24 20:30 Urine Bilirubin Neg (Negative) 01/08/24 20:30 Urine Urobilinogen 1 mg/dL (Negative) H 01/08/24 20:30 Ur Leukocyte Esterase Negative (Negative) 01/08/24 20:30 Urine RBC 0-4 /hpf (0-2) H 01/08/24 20:30 Urine WBC None /hpf (0-5) 01/08/24 20:30 Ur Squamous Epith Cells None /hpf (0-5) 01/08/24 20:30 Amorphous Sediment Not Reportable 01/08/24 20:30 Urine Bacteria None /hpf (NONE) 01/08/24 20:30 Urine Mucus N /hpf 01/08/24 20:30 Bronch Specimen Source Left lower lobe bal 01/09/24 07:45 Bronchial Fluid Color Red 01/09/24 07:45 Bronchial Fluid Appearance Cloudy (CLEAR) 01/09/24 07:45 Bronch Cells Counted 200 01/09/24 07:45 Bronchial Neutrophils 77.00 % (0.9-2.3) H 01/09/24 07:45 Bronchial Lymphocytes 5.00 % (10.71-12.91) L 01/09/24 07:45 Bronchial Macrophages 18.00 % (83.6-86.8) L 01/09/24 07:45 Bronchial Diff Comment Yes 01/09/24 07:45 Vancomycin Trough 19.0 ug/mL (10-15) H 01/09/24 17:35 Micro: Microbiology 01/09/24 04:02 Blood Culture - Preliminary Blood NEGATIVE TO DATE 01/09/24 03:57 Blood Culture - Preliminary Blood NEGATIVE TO DATE 01/09/24 07:43 Gram Stain - Final Lung Right Lower Lobe 01/09/24 07:45 Gram Stain - Final Lung Left Lower Lobe A&P Assessment and plan (1) Left lower lobe consolidation: (2) Recurrent pneumonia: (3) ALS (amyotrophic lateral sclerosis): (4) At risk for aspiration: (5) Weak cough: Plan # Recurrent left lower lobe pneumonia with persistent atelectasis # At high risk for aspiration due to underlying ALS -Received at least 4-5 rounds of Augmentin since July 2023 with 2 hospitalizations in October 2023 and November 2023 -This admission again CT imaging suggestive of worsening left lower lobe consolidation with questionable endobronchial mucous plug/lesion -S/p bronchoscopy 10/16/2023 and 12/15/2023-found to have copious thick mucous plugs which were completely occluding left lower lobe airways, all the secretions were thoroughly suctioned and cleared the airways. Therapeutic bronchoscope was replaced with diagnostic bronchoscope and advanced further into left lower lobe segments and did not notice any endobronchial lesions. -BAL cultures grew Streptococcus in October 2023 and Staph aureus in November 2023. Patient was treated with antibiotics. BAL Aspergillus, beta D glucan, blasto mitis antibodies, mycobacterial cultures, fungal cultures were all negative. -Cytology showed atypical degenerating cells-no definitive well-preserved diagnostic malignant cells identified. -There is a concern for underlying malignancy causing endobronchial lesion- however diagnostic bronchoscopic examination did not reveal any endobronchial lesions and both times cultures were positive for bacteria and he was treated with antibiotics. I ordered PET CT scan as outpatient-however authorization has to come through [place] and it is taking time. -01/10/2024 underwent repeat bronchoscopic examination of airways, clearance of airways, obtained bronchoalveolar lavage to send for repeat cultures and cytology; No endobronchial lesions noted. -Okay to cover with vancomycin and meropenem for broader coverage and healthcare associated pneumonia -BAL cultures showed coagulase positive staph-sensitivities pending-if current cultures grew MRSA-patient can receive oral linezolid - ordered out pt PETct - pending [place] authorization -Overall due to his underlying ALS-patient is unable to expectorate effectively. Recommended to continue chest vest therapy 3 times daily and CoughAssist device # ALS -Uses noninvasive ventilator at nighttime Attestations 2 Medical Necessity Statement*: continue IV antibiotics Time Spent in Patient Care: Greater than 35 minutes (>than 50% of time spent in counselling and/or direct pt care on unit) . Critical Care Time: The high probability of a clinically significant, sudden or life threatening deterioration of the patient's [Pulmonary] system(s) required my full and direct attention, intervention and personal management. The critical care time is as shown. This time is in addition to time spent performing any reported procedures but includes the following: [x] Data and vital sign review and interpretation [x] Patient assessment, examination and intervention [x] Documentation [x] Medication orders and management Critical Care Time (min): 52 Coding Level of Care Code Acute Code for Chg Fwd Diagnoses Left lower lobe consolidation J18.1 Recurrent pneumonia J18.9 ALS (amyotrophic lateral sclerosis) G12.21 At risk for aspiration Z91.89 Weak cough R05.8 Time Spent (min) 52
--- NOTE | 2024-01-10 11:10 | PC.SOCIAL ---
IMM Update pg 2 of IMM updated and reviewed w/ patient. Copy provided and copy dated, initialed and placed in chart.
--- NOTE | 2024-01-10 11:28 | P.PN_ITS ---
Subjective 2 Subjective: This morning patient is endorsing feeling better Low-grade fever 100.3 noted overnight Heart rate still 110 No sign of PE or DVT White count 15,000 improved from 19,000 today Hemoglobin stable at 10 BMP is unremarkable lactic acid is normal no significant procalcitonin CT chest showed bilateral pneumonia Vitals/I&O/Wt Last Vital Signs Temp 99.4 F 01/10/24 07:21 Pulse 106 H 01/10/24 08:45 Resp 16 01/10/24 07:55 BP 134/90 01/10/24 08:45 Pulse Ox 95 01/10/24 07:55 O2 Del Method BiPAP 01/10/24 07:55 FiO2 21 01/10/24 07:55 01/09/24 01/10/24 01/10/24 22:59 06:59 14:59 Intake Total 350 / 1490 50 / 1540 300 / 300 Balance 350 / 1490 50 / 1540 300 / 300 Weight last 48 hrs Weight 55.021 kg Weight 55.021 kg Weight 49.895 kg Weight 49.895 kg Weight 49.895 kg Physical Exam 2 Narrative: Euvolemic PEG tube in place Currently on BiPAP Pleasant cooperative Nonfocal neuroexam No new focal deficit Able to work with nurse to get out of bed and use the commode Sinus tachycardia Normotensive On BiPAP No sign of sacral ulcers no lower extremity edema Data 01/10/24 03:37 01/10/24 03:37 Micro: Microbiology 01/09/24 04:02 Blood Culture - Preliminary Blood NEGATIVE TO DATE 01/09/24 03:57 Blood Culture - Preliminary Blood NEGATIVE TO DATE 01/09/24 07:43 Gram Stain - Final Lung Right Lower Lobe 01/09/24 07:45 Gram Stain - Final Lung Left Lower Lobe A&P Assessment and plan (1) Depression: (2) D-dimer, elevated: (3) Ulcerative (chronic) enterocolitis: (4) Anemia of chronic disease: (5) Recurrent Clostridioides difficile diarrhea: (6) C. difficile enteritis: (7) SI (sacroiliac) pain: (8) ALS (amyotrophic lateral sclerosis): (9) Peripheral neuropathy: (10) Recurrent pneumonia: (11) Left lower lobe consolidation: (12) Weak cough: (13) At risk for aspiration: (14) Multiple tracheobronchial mucus plugs: Plan At this point we will continue ICU management with multiple antimicrobials including vancomycin, meropenem, cultures negative today, low-grade fever noted overnight CT chest rule out thromboembolic disease no signs of DVT CT chest consistent with bilateral pneumonia Leukocytosis improving Continue with chest vest therapy and Mucomyst DuoNeb treatment on board DVT prophylaxis covered with use of Lovenox, mild specks of blood noted with diarrhea yesterday, will monitor hemoglobin for now continuing therapy Patient also gets scopolamine patch Continue antidepressant Feeding tube is being managed by the family, Full code Attestations 2 Medical Necessity Statement*: Continue medical management Diagnoses Depression F32.A D-dimer, elevated R79.89 Ulcerative (chronic) enterocolitis K51.00 Anemia of chronic disease D63.8 Recurrent Clostridioides difficile diarrhea A04.71 C. difficile enteritis A04.72 SI (sacroiliac) pain M53.3 ALS (amyotrophic lateral sclerosis) G12.21 Peripheral neuropathy G62.9 Recurrent pneumonia J18.9 Left lower lobe consolidation J18.1 Weak cough R05.8 At risk for aspiration Z91.89 Multiple tracheobronchial mucus plugs T17.800A
[2024-01-10] MEDS: enoxaparin 30 mg/0.3 mL Syringe SUBCUT (11:53)
[2024-01-10] MEDS: ipratropium-albuterol 3 mL Neb INHALATION (15:24)
[2024-01-10] MEDS: acetylcysteine 200 mg/mL MDV 10 mL INHALATION (15:24)
[2024-01-10] MEDS: sertraline 50 mg Tablet PEG-TUBE (20:52)
[2024-01-10] MEDS: cetirizine 10 mg Tablet PO (20:52)
[2024-01-10] MEDS: famotidine 20 mg Tablet PEG-TUBE (20:52)
[2024-01-10] MEDS: NORTRIPTYLINE 10 MG/5 ML 30 EACH FEED TUBE (21:19)
[2024-01-10] MEDS: GABAPENTIN 250 MG/5 ML 500 EACH PO (21:19)
[2024-01-11] VITALS (32 sets, daily range): BP systolic 107–144; BP diastolic 74–97; PULSE 85–117; RESP 14–36; TEMP 36.3–37.2; O2SAT 86–95; BMI 16.3
[2024-01-11] MEDS: meropenem 500 MG in sodium chloride 0.9% (plus) 50 ML 100 MG IV ×3 (00:35→16:47)
[2024-01-11 02:34] LABS: Basophils # 0.1 10^3/uL (0.0-0.1); Basophils % 0.5 %; Eosinophils # 0.3 10^3/uL (0.0-0.8); Eosinophils % 2.6 %; Hematocrit 31.3 % (37-53); Lymphocytes # 2.1 10^3/uL (0.8-4.8); Lymphocytes % 19.1 %; Mean Corpuscular HGB Conc 29.4 g/dL (30-55); Mean Corpuscular Volume 98.7 fl (82-101); Mean Platelet Volume 10.2 fL (7.4-10.4); Monocytes # 0.9 10^3/uL (0.2-0.9); Monocytes % 7.8 %; Neutrophils # 7.64 10^3/uL (1.8-7.7); Neutrophils % 69.6 %; Nucleated Red Blood Cells % 0 %; Platelet Count 550 10^3/cmm (157-399); Red Blood Count 3.17 10^6/uL (3.85-5.65); Red Cell Distribution Width 14.8 % (12.1-15.1); White Blood Count 10.95 10^3/uL (3.29-11.43)
[2024-01-11 02:40] LABS: Vancomycin Trough 26.1 ug/mL (10-15)
[2024-01-11 02:47] LABS: Anion Gap 15.3 (5-19); Blood Urea Nitrogen 9 mg/dL (6-20); Calcium 8.5 mg/dL (8.5-10.5); Carbon Dioxide 26 mmol/L (22-29); Chloride 102 mmol/L (98-107); Creatinine Clr Calc Pharmacy 332.4185; Glomerular Filtration Rate 500.7 mL/min (90-130); Glucose 92 mg/dL (65-115); Osmolality Calculated 288 mOsm/kg (285-295); Potassium 3.3 mmol/L (3.5-5.1); Sodium 140 mmol/L (136-145)
[2024-01-11] MEDS: vancomycin 100 mg/1 mL Oral Syringe 125 MG XX ×2 (05:11→12:42)
--- NOTE | 2024-01-11 07:07 | P.CONIM_ITS ---
Providers/Reason For Consult 2 Consulting Physician/Specialty*: Jossy Keene MD Reason for Consult*: recurrent left lower lobe pneumonia and recurrent C. difficile. Requesting Physician: Raymundo Diaz MD Attending Physician: Raymundo Diaz MD Primary Care Provider: MORENO Ferrara History of Present Illness History of Present Illness Silvestre Espinosa is a 53 year old male with a past medical history of ALS, chronically in a wheelchair, history of oropharyngeal dysphagia, failed swallow eval's, currently has a PEG in place with exclusive feeding via PEG tube. Also has a history of C. difficile , most recently 2 weeks ago for which she completed a course of Dificid. He followed up with me as an outpatient and he was transitioned to a prolonged vancomycin taper over the next 2 months. Patient has been battling with recurrent pneumonia since at least August 2023. Patient had a witnessed aspiration event originally in 2023. 1 to 2 days afterwards he developed low-grade fever rectal and a persistent left lower lobe infiltrate which did not resolve with a course of Augmentin. CT of the chest was subsequently performed in October 2023 which showed persistent left lower lobe infiltrate with mucous plugging. Subsequently he underwent bronchoscopy since he is unable to expectorate due to ALS. No endobronchial lesions were found at that time. He was treated with oral Augmentin and cephalosporins at that time. Bronchoscopy culture showed group F Streptococcus. He was admitted again on December 13, 2023 with recurrent left lower lobe infiltrate. Patient typically becomes symptomatic with fever, increased rattling, feeling congested though he is unable to expectorate due to his ALS. Again he received outpatient course of Augmentin and eventually needed bronchoscopy for mucous plugging. On 12/15/2023 he was found to have copious thick mucous plugs which were completely occluding the left lower lobe airways. He started to improve immediately after the bronchoscopy cleared the airways. BAL culture this time grew MSSA and patient was treated with Augmentin. Since the last bronchoscopy, he has cut down his oral intake of water significantly. He is only taking a few intermittent sips. He has been repositioning himself in bed. He has been using chest vest and as needed suctioning , however in spite of these measures he developed fever and left lower lobe pneumonia again which has necessitated this current admission. He was on outpatient treatment with Augmentin and levofloxacin, however failed outpatient therapy. Again he needed bronchoscopy to clear out secretions. On January 09, 2024 to clear out his secretions.. He was found to have copious purulent secretions in the trachea right bronchus intermedius right lower lobe right middle lobe and left lower lobe airways. In contrast to previous admissions he also has secretions on the right lower lobe now. Other past medical history is notable for ulcerative colitis for which patient is on Entyvio, previously on Remicade until 2019. 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 He has had several international rounds including those to [facility] and [facility]. He has serially tested negative on multiple PPDs. Previously tested Aspergillus galactomannan antigen, serum cryptococcal antigen, Fungitell, histoplasma serology, urine histoplasma antigen, coccidial mycosis [employer], Blastomyces serology Review of Systems 2 General: Reports: 10 or more systems reviewed and unremarkable except in HPI and below Const: Denies: fever(s), chills or body aches Eyes: Denies: change in vision, blurry vision or photophobia ENMT: Reports: hoarseness; Denies: throat pain, enlarged tonsils, odynophagia or nasal congestion Card: Denies: chest pain, palpitations, irregular heart rhythm, edema, swelling of feet/ankles, lightheadedness, pre-syncope, dyspnea on exertion or orthopnea Resp: Denies: dyspnea, productive cough, non-productive cough, wheezing, stridor, pain on inspiration, change in phlegm color, hemoptysis or chest congestion GI: Denies: abdominal pain, nausea, vomiting, hematemesis, coffee ground emesis, dysphagia, heartburn, diarrhea, constipation, GI cramping, change in stool character, hematochezia or melena : Denies: flank pain, dysuria, urinary frequency, urinary urgency, urinary hesitancy or hematuria Musc: Denies: neck pain, back pain, extremity pain, joint swelling, joint warmth or deformity Neuro: Denies: headache(s), numbness in extremities, weakness in extremities, sensory changes, difficulty walking, frequent falls, dizziness, vertigo, behavioral changes, Slurred speech present or seizure-like activity Psych: Denies: anxiety, depression, suicidal ideation or homicidal ideation Endo: Denies: polyuria, polydipsia, tired all the time, cold intolerance or hot flashes Piero/Lymph: Denies: easy bruising or easy bleeding Medications/Allergies Home Medications Medication Instructions Recorded Confirmed Last Taken Type vedolizumab 300 mg intravenous 300 mg IV DIRECTED 04/24/20 01/08/24 11/14/23 History solution (Entyvio) sertraline 20 mg/mL oral 50 mg feeding tube BEDTIME 05/16/23 01/08/24 01/07/24 21:00 History concentrate (Zoloft) cetirizine 1 mg/mL oral solution 10 mg PO BEDTIME 10/16/23 01/08/24 01/07/24 21:00 History famotidine 40 mg/5 mL (8 mg/mL) 20 mg PO BEDTIME 12/13/23 01/08/24 01/07/24 21:00 History oral suspension gabapentin 250 mg/5 mL oral 500 mg PO BEDTIME 12/13/23 01/08/24 01/07/24 21:00 History solution vancomycin 50 mg/mL oral solution 125 mg (2.5 mL) PO .every other 01/05/24 01/08/24 Unknown Rx day 2 months #80 mL vancomycin 50 mg/mL oral solution 125 mg (2.5 mL) PO BID 7 days #35 01/05/24 01/08/24 01/08/24 09:00 Rx mL vancomycin 50 mg/mL oral solution 125 mg (2.5 mL) PO DAILY 7 days 01/05/24 01/08/24 Unknown Rx #80 mL acetaminophen 500 mg/15 mL oral 1,000 mg feeding tube Q4-5H PRN 01/08/24 01/08/24 01/08/24 15:00 History liquid Fever amoxicillin 875 mg-potassium 1 tab feeding tube BID 01/08/24 01/08/24 01/08/24 09:00 History clavulanate 125 mg tablet fidaxomicin 200 mg tablet (Dificid) 200 mg feeding tube BID PRN c diff 01/08/24 01/08/24 01/02/24 History guaifenesin 100 mg/5 mL oral 600 mg PO BID 01/08/24 01/08/24 01/08/24 09:00 History liquid (Jing-Tussin) levofloxacin 500 mg tablet 500 mg feeding tube DAILY 01/08/24 01/08/24 01/08/24 09:00 History nortriptyline 10 mg/5 mL oral 30 mg feeding tube BEDTIME 01/08/24 01/08/24 01/07/24 21:00 History solution riluzole 50 mg tablet 50 mg PO BID 01/08/24 01/08/24 01/08/24 17:00 History scopolamine base 1 mg over 3 days 0.5 patch transdermal Q2D 01/08/24 01/08/24 01/08/24 09:00 History transdermal patch Allergies Allergy/AdvReac Type Severity Reaction Status Date / Time No Known Allergies Allergy Verified 01/05/24 12:00 Current Medications Generic Name Dose Route Start Last Admin Trade Name Freq PRN Reason Stop Dose Admin Acetaminophen 650 mg 01/08/24 20:06 01/09/24 14:49 Acetaminophen 325 Mg Tablet PEG-TUBE 650 mg Q4H PRN Administration MILD PAIN OR INCREASE TEMP Acetylcysteine 200 mg 01/10/24 12:00 01/11/24 00:11 Acetylcysteine 200 Mg/Ml Mdv 10 Ml INHALATION Not Given Q4H.RESPIRATORY NED Albuterol/Ipratropium 3 ml 01/08/24 19:39 01/10/24 15:24 Ipratropium-Albuterol 3 Ml Neb INHALATION 3 ml Q6H PRN Administration SHORTNESS OF BREATH Cetirizine HCl 10 mg 01/08/24 21:00 01/10/24 20:52 Cetirizine 10 Mg Tablet PO 10 mg BEDTIME NED Administration Enoxaparin Sodium 30 mg 01/09/24 12:30 01/10/24 11:53 Enoxaparin 30 Mg/0.3 Ml Syringe SUBCUT 30 mg Q24H NED Administration Famotidine 20 mg 01/08/24 21:00 01/10/24 20:52 Famotidine 20 Mg Tablet PEG-TUBE 20 mg BEDTIME NED Administration Guaifenesin 600 mg 01/09/24 09:00 01/10/24 17:27 Guaifenesin 100 Mg/5 Ml Udc 10 Ml PEG-TUBE 600 mg BID NED Administration Meropenem 500 mg/ Sodium 50 mls @ 100 mls/hr 01/08/24 23:00 01/11/24 01:54 Chloride IV Infused Q8H NED Infusion Protocol Vancomycin/PEG/NADA/Lysine/Water 1,250 mg in 250 mls @ 250 mls/hr 01/08/24 19:00 01/11/24 03:57 Vancocin IV Not Given Q8H NED Non-Formulary Medication 30 mg 01/08/24 21:00 01/10/24 21:19 Nortriptyline FEED TUBE 30 mg BEDTIME NED Administration Non-Formulary Medication 50 mg 01/09/24 09:00 01/10/24 17:27 Riluzole PO 50 mg BID NED Administration Non-Formulary Medication 500 mg 01/08/24 21:00 01/10/24 21:19 Gabapentin PO 500 mg BEDTIME NED Administration Scopolamine 0.5 patch 01/10/24 09:00 01/10/24 08:45 Scopolamine 1.5 Patch TRANSDERMA 0.5 patch Q2D NED Administration Sertraline HCl 50 mg 01/08/24 21:00 01/10/24 20:52 Sertraline 50 Mg Tablet PEG-TUBE 50 mg BEDTIME NED Administration Vancomycin HCl 125 mg 01/08/24 21:30 01/11/24 05:11 Vancomycin 100 Mg/1 Ml Oral Syringe XX 125 mg Q8H NED Administration PFSH Acute 2 PFSH: Medical History Anemia of chronic disease Depression Peripheral neuropathy Recurrent Clostridioides difficile diarrhea Fracture of femoral neck, right Chronic, nondisplaced, for non operative management to date, follows with [facility] Small bowel obstruction 06/08 C. difficile enteritis Ulcerative (chronic) enterocolitis ALS (amyotrophic lateral sclerosis) Diagnosed in 2019 Surgical History History of oral surgery History of esophageal surgery Family History Denies family history of Diabetes Hypertension Social History Smoking and tobacco/nicotine status: never used tobacco/nicotine Alcohol intake: never Substance/Drug Use: never Vitals/I&O/Wt Last Vital Signs Temp 98.9 F 01/11/24 04:00 Pulse 102 H 01/11/24 06:00 Resp 17 01/11/24 06:00 BP 125/81 06/27/24 06:00 Pulse Ox 86 L 01/11/24 06:00 O2 Del Method BiPAP 01/11/24 06:00 FiO2 21 01/10/24 15:25 01/10/24 01/11/24 01/11/24 22:59 06:59 14:59 Intake Total 580 / 1390 80 / 1470 Balance 580 / 1390 80 / 1470 Weight last 48 hrs Weight 50.213 kg Weight 50.213 kg Weight 55.021 kg Weight 55.021 kg Physical Exam 2 Narrative: General: No acute distress, AO x3, chronically ill appearing male HEENT: PERRLA, pupils bilaterally equal and reactive, pallors not present Chest: Normal vesicular breath sounds, no added sounds, equal good air entry bilaterally CVS: S1-S2 regular, no murmurs, no tachycardia, no gallops, no rubs Abdomen: Soft, nontender, no organomegaly, bowel sounds present Neuro: No focal deficits, no facial deformity, AO x3, power 5/5 in all limbs Data 01/11/24 02:06 01/11/24 02:06 Micro: Microbiology 01/09/24 07:45 Gram Stain - Final Lung Left Lower Lobe Bronchoalveolar Lavage Culture - Preliminary 01/09/24 07:43 Gram Stain - Final Lung Right Lower Lobe Bronchoalveolar Lavage Culture - Preliminary Coag positive Staphylococcus 01/09/24 04:02 Blood Culture - Preliminary Blood NEGATIVE TO DATE 01/09/24 03:57 Blood Culture - Preliminary Blood NEGATIVE TO DATE NAME: Silvestre Espinosa LOC: ICU U #: [id number] AGE/SX: 53/M ROOM: [facility] R E01/08/[address]: Raymundo Diaz MD : 1970 BED: 1 D IS: FAX #: STATUS: ADM IN TLOC: Spec #: [id number] Lia: 01/09/24 Status: RES Req #: [id number] Recd: 01/09/24-[address]: Rj Hdz MD Src: Lung Lt Lw SpDesc: Ordered: BR Lav Cult&GS Comments: Comment 50ML BAL Procedure Result Verified Site Gram Stain Final 01/09/24-1645 Result MANY WHITE BLOOD CELLS NO ORGANISMS SEEN Bronchoalveolar Lavage Culture Preliminary 01/10/24-1429 FEW MIXED UPPER RESPIRATORY ANTONIO ON DAY 1 RESULTS TO FOLLOW NAME: Silvestre Espinosa LOC: [facility] U #: [id number] AGE/SX: 53/M ROOM: 251 R E12/13/[address]: Cole Contreras MD : 1970 BED: 1 D IS: 12/15/23 FAX #: STATUS: DIS IN TLOC: Spec #: [id number] Lia: 12/15/23 Status: COMP Req #: [id number] Recd: 12/15/[address]: Rj Hdz MD Src: Lung Lt Lw SpDesc: Ordered: BR Lav Cult&GS Comments: Comment 75ML BAL Procedure Result Verified Site Gram Stain Final 12/15/23-1018 Result RARE GRAM POSITIVE COCCI IN PAIRS MODERATE WHITE BLOOD CELLS MODERATE POLYMORPHONUCLEAR NEUTROPHILS Bronchoalveolar Lavage Culture Final 12/17/23-1800 Organism 1 Staphylococcus aureus Growth MODERATE DAY 2 S aureus M.I.C. RX --------- ------ * Amoxicillin/Clavulanate <=4/2 S * Ampicillin >8 R * Ampicillin/Sulbactam <=8/4 S * Ceftriaxone <=8 S * Ciprofloxacin <=1 S * Clindamycin <=0.5 S * Erythromycin <=0.5 S * Gentamicin <=4 S * Levofloxacin <=1 S * Linezolid 4 S * Oxacillin 1 S * Penicillin >8 R * Rifampin <=1 S * Tetracycline <=4 S * Trimethoprim/Sulfamethoxazole <=0.5/9.5 S Vancomycin 2 S Daptomycin 1 S Bronchoalveolar Lavage Culture Preliminary (changed) 12/16/23-1415 Organism 1 Coag positive Staphylococcus Growth FEW DAY 1, RESULTS TO FOLLOW NAME: Silvestre Espinosa LOC: ICU U #: [id number] AGE/SX: 53/M ROOM: ICU01 R E01/08/[address]: Raymundo Diaz MD : 1970 BED: 1 D IS: FAX #: STATUS: ADM IN TLOC: Spec #: [id number] Lia: 01/09/24-401 Status: RES Req #: [id number] Recd: 01/09/24-[address]: Brisa Kay MD Src: Blood SpDesc: Ordered: Bcult Procedure Result Verified Site Blood Culture Preliminary 01/10/24-413 NEGATIVE TO DATE Blood Culture Preliminary (changed) 01/09/24-419 SPECIMEN COLLECTED NAME: Silvestre Espinosa LOC: [facility] U #: [id number] AGE/SX: 53/M ROOM: 251 R E12/13/[address]: Cole Contreras MD : 1970 BED: 1 D IS: 12/15/23 FAX #: STATUS: DIS IN TLOC: Spec #: [id number] Lia: 12/15/23 Status: RES Req #: [id number] Recd: 12/15/23-[address]: Rj Hdz MD Src: Tissue SpDesc: Ordered: Cult. Fungus Comments: Comment 75ML LLL BAL Procedure Result Verified Site Smear Preliminary 12/18/23-1717 QD SEE NOTE CULTURE, FUNGUS W/SMEAR NOT HAIR, SKIN, BLOOD Micro Number: [id number] Test Status: Preliminary Specimen Source: Lll bal Specimen Quality: Adequate Smear: No fungal elements seen. Result: No fungi isolated to date. Culture is examined weekly for a total of 28 days incubation. A change in status will result in an updated culture report. NAME: Silvestre Espinosa LOC: [facility] U #: [id number] AGE/SX: 53/M ROOM: 276 R E10/16/[address]: Jossy Keene MD : 1970 BED: 2 D IS: 10/17/23 FAX #: STATUS: DIS IN TLOC: Spec #: [id number] Lia: 10/17/23 Status: COMP Req #: [id number] Recd: 10/17/23-[address]: Rj Hdz MD Src: Body Fluid SpDesc: Bronchial Ordered: Mycobac w/Cult Comments: Comment LEFT LOWER LOBE Procedure Result Verified Site Mycobacterial Smear Final 11/30/23-175 QD SEE NOTE MYCOBACTERIA, CULTURE, WITH FLUOROCHROME SMEAR Micro Number: [id number] Test Status: Preliminary Specimen Source: Lung, lower left Specimen Quality: Adequate Smear: No acid-fast bacilli seen using the fluorochrome method. Result: Culture results to follow. Final reports of negative cultures can be expected in approximately six weeks. Positive cultures are reported immediately. THIS TEST WAS PERFORMED AT: [employer] [facility] [id number] BECKY SILVESTRE MD MYCOBACTERIA, CULTURE, WITH FLUOROCHROME SMEAR Micro Number: [id number] Test Status: Final Specimen Source: Lung, lower left Specimen Quality: Adequate Smear: No acid-fast bacilli seen using the fluorochrome method. Result: No Mycobacterium species isolated after 6 weeks incubation. THIS TEST WAS PERFORMED AT: [employer] [address] [place] [id number] BECKY SILVESTRE MD Mycobacterial Smear Preliminary (changed) 10/22/23-1436 QD SEE NOTE MYCOBACTERIA, CULTURE, WITH FLUOROCHROME SMEAR Micro Number: [id number] Test Status: Preliminary Specimen Source: Lung, lower left Specimen Quality: Adequate Smear: No acid-fast bacilli seen using the fluorochrome method. Result: Culture results to follow. Final reports of negative cultures can be expected in approximately six weeks. Positive cultures are reported immediately. [id number]: [facility] #: [id number] AGE/SX: 53/M ROOM: 276 R E10/16/[address]: Jossy Keene MD : 1970 BED: 2 D IS: 10/17/23 FAX #: STATUS: DIS IN TLOC: Spec #: [id number] Lia: 10/16/23-1231 Status: COMP Req #: [id number] Recd: 10/16/23-[address]: Jossy Keene MD Src: Blood SpDesc: Ordered: Cryp Ag Serum Procedure Result Verified Site Cryptococcal Antigen (Serum) Final 10/17/23 Cryptococcal AG Result: NEGATIVE FOR CRYPTOCOCCAL ANTIGEN Other data: [address] [address] [address] Scan Report Signed Patient: Silvestre Espinosa Unit #: [id number] : 1970 Age/Sex: 53 / M ADM Date: 01/08/24 [facility] [place] Attending Dr: Raymundo Diaz MD Ordering Provider/Ordering MD: Raymundo Diaz MD Date of Service: 01/09/24 Procedure(s): CT angio chest PE protcl [id number] Accession Number(s): [id number] Report Number: [id number] PROCEDURE INFORMATION: Exam: CTA Chest With Contrast Exam date and time: 01/09/2024 2:15 PM Age: 53 years old Clinical indication: Shortness of breath; Prior surgery; Surgery date: 6+ months; Surgery type: Peg, esophagus; Additional info: St hypoxia als TECHNIQUE: Imaging protocol: Computed tomographic angiography of the chest with contrast. Exam focused on the arteries. 3D rendering (Not supervised by radiologist): MIP and/or 3D reconstructed images were created by the technologist. Radiation optimization: All CT scans at this facility use at least one of these dose optimization techniques: automated exposure control; mA and/or kV adjustment per patient size (includes targeted exams where dose is matched to clinical indication); or iterative reconstruction. Contrast material: OMNI 350; Contrast volume: 100 ml; Contrast route: INTRAVENOUS (IV); COMPARISON: CT angio chest PE protcl [id number] 10/16/2023 8:18 PM RADIATION DOSE METRICS: Total DLP (mGy-cm): 243.49 FINDINGS: Pulmonary arteries: Evaluation for pulmonary thromboembolism is limited beyond the segmental level due to respiratory motion. No evidence of PE. There is hypoattenuation within subsegmental branches of the left and right lower lobes favored to be secondary to motion as well as perfusional changes related to consolidated lung parenchyma. Aorta: No evidence of aneurysmal dilatation or dissection of the thoracic aorta. Thyroid: Grossly unremarkable. Lungs: Lingular and left lower lobe consolidation suggestive of pneumonia. Additional airspace opacities in the right lower lobe with focal consolidation in the medial costophrenic sulcus compatible with pneumonia. Pleural spaces: No evidence of pleural effusion. No pneumothorax. Heart: No cardiomegaly. No pericardial effusion. Mediastinal space: No evidence of mediastinal mass, fluid collection or hematoma. Lymph nodes: There is reactive mediastinal and hilar adenopathy. Bones/joints: No evidence of acute fracture or aggressive osseous lesion. Soft tissues: No evidence of fluid collection or hematoma in the superficial soft tissues. Other findings: No evidence of acute abnormality in the upper abdomen. CT/CT angio chest PE protcl [id number] IMPRESSION: 1. Multifocal pneumonia, left worse than right. 2. No evidence of PE or acute aortic abnormality. CT/CT chest w con* [id number] IMPRESSION: 1. Worsening bilateral multifocal pneumonia as above. 2. Multifocal areas of bronchial obstruction/mucous plugging in the lower lung zones bilaterally. CT/CT abdomen wo con [id number]: 1[address] No CT evidence of an acute abdominal abnormality. 2. The PEG tube is in good position in the soft tissue surrounding the PEG tube are unremarkable. 3. 1 mm nonobstructing calculus in the lower pole calyx of the right kidney. A&P Assessment and plan (1) Recurrent pneumonia: 53-year-old male with ALS, impaired cough and inability to expectorate presenting to the hospital with recurrent pneumonia related to mucous plugging. Patient has been compliant with using chest vest, intermittent suctioning, repositioning with sleep, elevating head of bed however continues to have recurrent aspirations. Patient is currently cut down on his oral intake of water significantly, takes only 1-2 sips, however discussed with him that it is not just food aspiration but aspiration of saliva in his own respiratory secretions that leads him to this recurrent cycle of pneumonias. Most recent respiratory culture showing MSSA, however patient failed to clinically improve in spite of outpatient treatment with Augmentin. Now status post bronchoscopy on January 09, 2024 which cleared out copious amount of secretions from the bronchial tree. Patient started to improve clinically afterwards. Fever resolved and white count downtrending. Leukocytosis improved from 19,000-10,000 today. Would not consider this an antibiotic failure, or other unfortunately patient's anatomic difficulties with being able to clear out secretions puts him at risk for recurrent aspirations. Sputum culture thus far showing coag positive Staphylococcus, pending final identification. Currently on treatment with meropenem and vancomycin which can continue. Will follow final cultures. Should patient have Staph aureus identified again, would plan to discharge with oral linezolid for a 14-day course. Continue pulmonary toilet measures to best ability at home to be able to clear out secretions. Discussed with him that we could trial chronic suppression going forward, however this is complicated by the fact that patient is prone to recurrent C. difficile diarrhea and colitis, having most recently been treated 2 weeks ago. Additionally chronic suppression would not take care of his underlying anatomical issues therefore may or may not be successful. Patient is planned for FMT at [facility] on January 30, 2024, will revisit possibility of chronic suppression afterwards. (2) Multiple tracheobronchial mucus plugs: Status post bronchoscopy on January 09, 2024 with clinical improvement. (3) Recurrent Clostridioides difficile diarrhea: Most recently treated with Dificid for 10 days by primary care provider. He had recurrent C. difficile. Previously been treated with Dificid and oral vancomycin. Will plan a prolonged vancomycin taper at discharge. This should be as follows oral vancomycin 125 mg p.o. twice daily for 7 days, then p.o. vancomycin daily for 7 days then p.o. vancomycin 125 mg every other day for 2 months. Patient is currently planned for FMT at [facility] on January 30, 2024, hopefully he can keep this appointment. Will stop oral vancomycin 48 hours prior to planned FMT. Diagnoses Recurrent pneumonia J18.9 Multiple tracheobronchial mucus plugs T17.800A Recurrent Clostridioides difficile diarrhea A04.71
--- NOTE | 2024-01-11 07:25 | XR_ITS ---
WS: [id number] Exam: XR chest 1V portable [id number] Date/Time of Exam: 01/11/2024 7:28 AM Reason For Exam: pneumonia Comparison 12/22/2023. LEFT lower lobe infiltrate shows little change since the last exam. Remaining lung hernandez are clear. No pneumothorax or pleural effusion. Unremarkable cardiomediastinal silhouette. Bony structures are i ntact. XR/XR chest 1V portable [id number] IMPRESSION: 1. Persistent LEFT lower lobe infiltrate showing little change.
--- NOTE | 2024-01-11 07:33 | PC.NURSE ---
At 0700 performed bedside rounding. Assisted patient up to his personal wheelchair to go to the bathroom. Patient has small amount of loose brown stool. Patient cleaned and brief changed. Performed linen change as well. Patient tolerated fair. Dr Keene in to see patient this am. Portable chest xray ordered per MD. Radiology in at this time.
[2024-01-11] MEDS: guaiFENesin 100 mg/5 mL UDC 10 mL 600 MG PEG-TUBE ×2 (07:59→16:52)
[2024-01-11] MEDS: RILUZOLE 50 MG 50 EACH PO ×2 (08:01→16:53)
[2024-01-11] MEDS: ipratropium-albuterol 3 mL Neb INHALATION ×3 (08:13→19:53)
[2024-01-11] MEDS: acetylcysteine 200 mg/mL MDV 10 mL INHALATION ×3 (08:13→19:53)
--- NOTE | 2024-01-11 08:37 | PC.NURSE ---
Dr Diaz in to see patient. Discussed possible plan for discharge.
[2024-01-11] MEDS: vancomycin 1,250 MG/250 ML PIGGYBACK 250 MG IV ×2 (09:57→21:40)
--- NOTE | 2024-01-11 11:36 | P.DS_ITS ---
Discharge Providers Date of Admission: 01/08/24 16:11 Date of Discharge: January 11, 2024 Attending Provider at Admission: Brisa Kay MD Attending Provider at Discharge: Raymundo Diaz MD Primary Care Provider: MORENO Ferrara Diagnoses at Discharge Discharge Diagnosis (1) Left lower lobe consolidation: Status: Chronic (2) Recurrent pneumonia: Status: Chronic (3) ALS (amyotrophic lateral sclerosis): Status: Chronic Permanent problem details: Diagnosed in 2019 (4) At risk for aspiration: Status: Chronic (5) Weak cough: Status: Chronic Reason for Visit Reason for Visit: abd pain Discharge Data Studies Completed and Pending Completed Studies During Hospitalization Category Date Time Status CTA PE [CT angio chest PE protcl 94565] Urgent Cat Scan 01/09/24 10:40 Comp leted CXRP [XR chest 1V portable 05368] Routine Exams 01/11/24 07:25 [place] [id number] Routine Ultrasound 01/09/24 10:40 Completed Pending at discharge Category Date Time Status Blood Culture AM LABS Lab 01/09/24 04:02 Results Bronchoalv Lavage Culture & GS Routine Lab 01/09/24 07:43 Results Bronchoalv Lavage Culture & GS Routine Lab 01/09/24 07:45 Results Cytology [PTH] Routine Pth 01/09/24 07:44 Received Radiology Impressions Chest CTA 01/09/24 10:40 IMPRESSION: 1. Multifocal pneumonia, left worse than right. 2. No evidence of PE or acute aortic abnormality. Chest X-Ray 01/11/24 07:25 IMPRESSION: 1. Persistent LEFT lower lobe infiltrate showing little change. Laboratory Results WBC 10.95 10^3/uL (3.29-11.43) 01/11/24 02:06 RBC 3.17 10^6/uL (3.85-5.65) L 01/11/24 02:06 Hgb 9.20 g/dL (11.27-16.99) L 01/11/24 02:06 Hct 31.3 % (37-53) L 01/11/24 02:06 MCV 98.7 fl (82-101) 01/11/24 02:06 MCH 29.0 pg (27-33) 01/11/24 02:06 MCHC 29.4 g/dL (30-55) L D 01/11/24 02:06 RDW 14.8 % (12.1-15.1) 01/11/24 02:06 Plt Count 550 10^3/cmm (157-399) H 01/11/24 02:06 MPV 10.2 fL (7.4-10.4) 01/11/24 02:06 Neut % (Auto) 69.6 % 01/11/24 02:06 Lymph % (Auto) 19.1 % 01/11/24 02:06 [place] % (Auto) 7.8 % 01/11/24 02:06 Eos % (Auto) 2.6 % 01/11/24 02:06 Baso % (Auto) 0.5 % 01/11/24 02:06 Neut # (Auto) 7.64 10^3/uL (1.8-7.7) 01/11/24 02:06 Lymph # (Auto) 2.1 10^3/uL (0.8-4.8) 01/11/24 02:06 [place] # (Auto) 0.9 10^3/uL (0.2-0.9) 01/11/24 02:06 Eos # (Auto) 0.3 10^3/uL (0.0-0.8) 01/11/24 02:06 Baso # (Auto) 0.1 10^3/uL (0.0-0.1) 01/11/24 02:06 Nucleated RBC % (auto) 0 % 01/11/24 02:06 Nucleated RBCs # 0.0 /100WBC 01/11/24 02:06 PT 14.80 SECONDS (12.1-14.9) 01/09/24 03:57 INR 1.13 (0.8-1.2) 01/09/24 03:57 APTT 35.5 SECONDS (23.9-36.7) 01/09/24 03:57 D-Dimer 1.35 ug/mLFEU (0-0.59) H 01/09/24 03:57 Sodium 140 mmol/L (136-145) 01/11/24 02:06 Potassium 3.3 mmol/L (3.5-5.1) L 01/11/24 02:06 Chloride 102 mmol/L (98-107) 01/11/24 02:06 Carbon Dioxide 26 mmol/L (22-29) 01/11/24 02:06 Anion Gap 15.3 (5-19) 01/11/24 02:06 BUN 9 mg/dL (6-20) 01/11/24 02:06 Creatinine 0.2 mg/dL (0.7-1.2) L 01/11/24 02:06 GFR Calculation 500.7 mL/min (90-130) H 01/11/24 02:06 Glucose 92 mg/dL (65-115) 01/11/24 02:06 Calculated Osmolality 288 mOsm/kg (285-295) 01/11/24 02:06 Lactic Acid 0.8 mmol/L (0.5-2.2) 01/10/24 03:37 Calcium 8.5 mg/dL (8.5-10.5) 01/11/24 02:06 Magnesium 1.8 mg/dL (1.7-2.3) 01/09/24 03:57 Total Bilirubin 0.2 mg/dL (0.15-1.2) 01/08/24 13:15 AST 19 U/L (0-40) 01/08/24 13:15 ALT 26 U/L (0-41) 01/08/24 13:15 Alkaline Phosphatase 123 U/L (40-130) 01/08/24 13:15 C-Reactive Protein 201.6 mg/L (0.0-4.9) H 01/10/24 03:37 Total Protein 7.8 g/dL (6.6-8.7) 01/08/24 13:15 Albumin 3.5 g/dL (3.5-5.2) 01/08/24 13:15 Globulin 4.3 g/dL (1.3-4.6) 01/08/24 13:15 Lipase 20 U/L (13-60) 01/08/24 13:15 Procalcitonin 0.21 ng/mL (0-0.5) 01/10/24 03:37 Urine Color Yellow (Yellow) 01/08/24 20:30 Urine Appearance Clear (CLEAR) 01/08/24 20:30 Urine pH 7 (5-7) 01/08/24 20:30 Ur Specific [place] 1.005 (1.005-1.030) 01/08/24 20:30 Urine Protein 1+ (Negative) H 01/08/24 20:30 Urine Glucose (UA) Norm (Normal) 01/08/24 20:30 Urine Ketones 1+ (Negative) H 01/08/24 20:30 Urine Blood Trace (Negative) H 01/08/24 20:30 Urine Nitrate Negative (Negative) 01/08/24 20:30 Urine Bilirubin Neg (Negative) 01/08/24 20:30 Urine Urobilinogen 1 mg/dL (Negative) H 01/08/24 20:30 Ur Leukocyte Esterase Negative (Negative) 01/08/24 20:30 Urine RBC 0-4 /hpf (0-2) H 01/08/24 20:30 Urine WBC None /hpf (0-5) 01/08/24 20:30 Ur Squamous Epith Cells None /hpf (0-5) 01/08/24 20:30 Amorphous Sediment Not Reportable 01/08/24 20:30 Urine Bacteria None /hpf (NONE) 01/08/24 20:30 Urine Mucus N /hpf 01/08/24 20:30 Bronch Specimen Source Left lower lobe bal 01/09/24 07:45 Bronchial Fluid Color Red 01/09/24 07:45 Bronchial Fluid Appearance Cloudy (CLEAR) 01/09/24 07:45 Bronch Cells Counted 200 01/09/24 07:45 Bronchial Neutrophils 77.00 % (0.9-2.3) H 01/09/24 07:45 Bronchial Lymphocytes 5.00 % (10.71-12.91) L 01/09/24 07:45 Bronchial Macrophages 18.00 % (83.6-86.8) L 01/09/24 07:45 Bronchial Diff Comment Yes 01/09/24 07:45 Vancomycin Trough 26.1 ug/mL (10-15) H* 01/11/24 02:06 Vitals Last Vital Signs Temp 97.6 F 01/11/24 10:00 Pulse 106 H 01/11/24 10:00 Resp 24 H 01/11/24 10:00 BP 116/74 01/11/24 10:00 Pulse Ox 89 L 01/11/24 08:10 O2 Del Method BiPAP 01/11/24 10:00 FiO2 21 01/11/24 08:10 Discharge Plan Discharge Patient Disposition: Home Condition: Stable Prescriptions: No Action sertraline [Zoloft] 20 mg/mL concentrate 50 mg feeding tube BEDTIME Rx Instructions: 2.5 ml at bedtime per (there are no dose/frequency instructions on bottle) vancomycin 50 mg/mL recon soln 125 mg PO BID 7 Days Qty: 35 0RF Rx Instructions: use week 1 vancomycin 50 mg/mL recon soln 125 mg PO DAILY 7 Days Qty: 80 0RF Rx Instructions: week 2 vancomycin 50 mg/mL recon soln 125 mg PO .every other day 60 Days Qty: 80 0RF Rx Instructions: week 3 onwards Entyvio 300 mg Recon Soln 300 mg IV DIRECTED Rx Instructions: every 8 weeks cetirizine 1 mg/mL Solution 10 mg PO BEDTIME Rx Instructions: 10 ml famotidine 40 mg/5 mL (8 mg/mL) Suspension For Reconstitution 20 mg PO BEDTIME Rx Instructions: 2.5 ml gabapentin 250 mg/5 mL Solution 500 mg PO BEDTIME Rx Instructions: 10 ml amoxicillin-pot clavulanate 875-125 mg tablet 1 tab feeding tube BID levofloxacin 500 mg tablet 500 mg feeding tube DAILY riluzole 50 mg Tablet 50 mg PO BID Rx Instructions: administer on an empty stomach, at least 1 hour before or 2 hours after food/meal(s) nortriptyline 10 mg/5 mL Solution 30 mg feeding tube BEDTIME scopolamine base 1 mg over 3 days Patch 3 Day 0.5 patch TRANSDERMAL Q2D acetaminophen 500 mg/15 mL Liquid 1,000 mg feeding tube Q4-5H PRN (Reason: Fever) Jing-Tussin 100 mg/5 mL Liquid 600 mg PO BID Dificid 200 mg tablet 200 mg feeding tube BID PRN (Reason: c diff) Referrals: Chel Weinstein FNP [Primary Care Provider] - Patient Instructions: Opioid Safety Discharge Attestations Status at Discharge: Cognitive status at discharge: cognitively intact , Behavioral status at discharge: cooperative , Coding Level of Care Code Acute Code for Chg Fwd Diagnoses Left lower lobe consolidation J18.1 Recurrent pneumonia J18.9 ALS (amyotrophic lateral sclerosis) G12.21 At risk for aspiration Z91.89 Weak cough R05.8
--- NOTE | 2024-01-11 11:45 | PC.NURSE ---
Spoke with Dr Diaz regarding possible discharge. Plan for discharge in the am due to dosing changes on vancomycin. Instructed patient and caregiver. Both verbalized understanding.
--- NOTE | 2024-01-11 11:54 | P.PN_ITS ---
Subjective 2 Subjective: Spoke with Dr. Keene who is recommending use of linezolid, coagulase positive staph, spoke with Dr. Chavez as well Our plan is to discharge him tomorrow once we have linezolid suspension 600 mg twice daily 10-day regimen available His next dose of vancomycin is due at 10 PM which will be very late to discharge patient Family is okay staying 1 more day in the hospital No fever, no leukocytosis I do believe the rash on the arm is related to heat I do not see significant eosinophils to associate with drug rash, I do not see diffuse rash is not associated with vancomycin, Vanco trough level is 26:-Vancomycin dose has been adjusted by pharmacy already At the time of discharge patient will get C. difficile treatment twice a day regimen for a week and then once a day for a week and then every other day for 2 months, it will need to be discontinued 48 hours before fecal transplant procedure which is on January 29 X-ray showing left-sided pneumonia, No signs of respiratory distress noticed during my evaluation Vitals/I&O/Wt Last Vital Signs Temp 97.6 F 01/11/24 10:00 Pulse 106 H 01/11/24 10:00 Resp 24 H 01/11/24 10:00 BP 116/74 01/11/24 10:00 Pulse Ox 89 L 01/11/24 08:10 O2 Del Method BiPAP 01/11/24 10:00 FiO2 21 01/11/24 08:10 01/10/24 01/11/24 01/11/24 22:59 06:59 14:59 Intake Total 580 / 1390 80 / 1470 780 / 780 Balance 580 / 1390 80 / 1470 780 / 780 Weight last 48 hrs Weight 50.213 kg Weight 50.213 kg Weight 55.021 kg Weight 55.021 kg Physical Exam 2 Narrative: Nonpruritic nontender macular rash on arms Patient is sitting in his electric chair Euvolemic PEG tube in place Abdomen soft No audible stridor or wheezing I do not see any new focal deficits S1, S2 Tachycardia heart rate 10 6-1 10 Data 01/11/24 02:06 01/11/24 02:06 Micro: Microbiology 01/09/24 07:45 Gram Stain - Final Lung Left Lower Lobe Bronchoalveolar Lavage Culture - Preliminary 01/09/24 07:43 Gram Stain - Final Lung Right Lower Lobe Bronchoalveolar Lavage Culture - Preliminary Coag positive Staphylococcus A&P Assessment and plan (1) D-dimer, elevated: (2) Ulcerative (chronic) enterocolitis: (3) Anemia of chronic disease: (4) C. difficile enteritis: (5) Recurrent Clostridioides difficile diarrhea: (6) SI (sacroiliac) pain: (7) ALS (amyotrophic lateral sclerosis): (8) Peripheral neuropathy: (9) Recurrent pneumonia: (10) At risk for aspiration: (11) Weak cough: (12) Multiple tracheobronchial mucus plugs: (13) Left lower lobe consolidation: Plan Rash on the arm likely related to heat No signs of vancomycin associated diffuse rash No significant eosinophilia or fever C. difficile colitis patient need to continue vancomycin twice a day regimen for a week then once a day regimen for a week then every other day for 2 months and then stop 48 hours before the procedure Culture report showing coagulase positive staph, plan to use linezolid suspension via PEG tube for 14 days pharmacy will be able to arrange it by 11 AM on 01/11 Vanc trough level is very high at 26 vancomycin dose has been adjusted, spoke with inpatient pharmacy Vancomycin dose has been changed from every 8 hours to every every 12, next will will be 10 PM Trough level was taken at 2 AM Status post bronchoscopy Continue Mucomyst chest vest physiotherapy Continue meropenem and vancomycin at this point We are also continuing Riluzole for ALS Patient to continue BiPAP X-ray showing left-sided infiltrate No sign of significant mucous plug no complete whiteout noted Spoke with Dr. Kathy Keene outpatient and inpatient pharmacy Family updated Disposition plan: Discharge on Monday likely around noon once we have linezolid suspension, Attestations 2 Medical Necessity Statement*: Continue ICU management till 01/11 Diagnoses D-dimer, elevated R79.89 Ulcerative (chronic) enterocolitis K51.00 Anemia of chronic disease D63.8 C. difficile enteritis A04.72 Recurrent Clostridioides difficile diarrhea A04.71 SI (sacroiliac) pain M53.3 ALS (amyotrophic lateral sclerosis) G12.21 Peripheral neuropathy G62.9 Recurrent pneumonia J18.9 At risk for aspiration Z91.89 Weak cough R05.8 Multiple tracheobronchial mucus plugs T17.800A Left lower lobe consolidation J18.1
[2024-01-11] MEDS: lidocaine 1% 5 ML in potassium chloride premix 100 ML 26.25 ML IV (12:40)
[2024-01-11] MEDS: enoxaparin 30 mg/0.3 mL Syringe SUBCUT (12:41)
--- NOTE | 2024-01-11 13:51 | PM.PN ---
Subjective Subjective: Patient gradually improving White count down to 10 K; no fever spikes Not in respiratory distress Sputum cultures positive for coagulase positive staph pending identification and sensitivities-currently on vancomycin and meropenem; Medications: Reviewed: Yes Vitals/I&O/Wt Last Vital Signs Temp 97.4 F L 01/11/24 13:38 Pulse 117 H 01/11/24 13:38 Resp 26 H 01/11/24 13:38 BP 107/79 01/11/24 13:38 Pulse Ox 89 L 01/11/24 08:10 O2 Del Method BiPAP 01/11/24 13:38 FiO2 21 01/11/24 08:10 01/10/24 01/11/24 01/11/24 22:59 06:59 14:59 Intake Total 580 / 1390 80 / 1470 780 / 780 Balance 580 / 1390 80 / 1470 780 / 780 Weight last 48 hrs Weight 110 lb 11.2 oz Weight 110 lb 11.2 oz Weight 121 lb 4.8 oz Weight 121 lb 4.8 oz Physical Exam Narrative: General: alert, NAD, sitting in motorized wheelchair HEENT: conj clear, EOMI, PERRL, mmm, Neck: supple, no meningismus Heme: no cervical LAP Respiratory: Inspection: No visible deformity of the chest wall Palpation: Trachea is mildly deviated to the right, bilateral symmetric expansion Percussion: Bilateral tympanic percussion note both anterior and posteriorly Auscultation: Normal breath sounds left lower lung zone Cardiovascular: rrr, nl s1s2, no mrg Abdomen: soft, nt, nd, no r/g, bs+ Extremities: pulses +, no edema, no c/c : no CVA tenderness Skin: intact, no rash MSK: no back or neck pain Neurologic: Chronically wheelchair-bound with minimal motor activity Data 01/11/24 02:06 01/11/24 02:06 Other Labs: Radiology Impressions Chest CTA 01/09/24 10:40 IMPRESSION: 1. Multifocal pneumonia, left worse than right. 2. No evidence of PE or acute aortic abnormality. Chest X-Ray 01/11/24 07:25 IMPRESSION: 1. Persistent LEFT lower lobe infiltrate showing little change. Laboratory Results WBC 10.95 10^3/uL (3.29-11.43) 01/11/24 02:06 RBC 3.17 10^6/uL (3.85-5.65) L 01/11/24 02:06 Hgb 9.20 g/dL (11.27-16.99) L 01/11/24 02:06 Hct 31.3 % (37-53) L 01/11/24 02:06 MCV 98.7 fl (82-101) 01/11/24 02:06 MCH 29.0 pg (27-33) 01/11/24 02:06 MCHC 29.4 g/dL (30-55) L D 01/11/24 02:06 RDW 14.8 % (12.1-15.1) 01/11/24 02:06 Plt Count 550 10^3/cmm (157-399) H 01/11/24 02:06 MPV 10.2 fL (7.4-10.4) 01/11/24 02:06 Neut % (Auto) 69.6 % 01/11/24 02:06 Lymph % (Auto) 19.1 % 01/11/24 02:06 [place] % (Auto) 7.8 % 01/11/24 02:06 Eos % (Auto) 2.6 % 01/11/24 02:06 Baso % (Auto) 0.5 % 01/11/24 02:06 Neut # (Auto) 7.64 10^3/uL (1.8-7.7) 01/11/24 02:06 Lymph # (Auto) 2.1 10^3/uL (0.8-4.8) 01/11/24 02:06 [place] # (Auto) 0.9 10^3/uL (0.2-0.9) 01/11/24 02:06 Eos # (Auto) 0.3 10^3/uL (0.0-0.8) 01/11/24 02:06 Baso # (Auto) 0.1 10^3/uL (0.0-0.1) 01/11/24 02:06 Nucleated RBC % (auto) 0 % 01/11/24 02:06 Nucleated RBCs # 0.0 /100WBC 01/11/24 02:06 PT 14.80 SECONDS (12.1-14.9) 01/09/24 03:57 INR 1.13 (0.8-1.2) 01/09/24 03:57 APTT 35.5 SECONDS (23.9-36.7) 01/09/24 03:57 D-Dimer 1.35 ug/mLFEU (0-0.59) H 01/09/24 03:57 Sodium 140 mmol/L (136-145) 01/11/24 02:06 Potassium 3.3 mmol/L (3.5-5.1) L 01/11/24 02:06 Chloride 102 mmol/L (98-107) 01/11/24 02:06 Carbon Dioxide 26 mmol/L (22-29) 01/11/24 02:06 Anion Gap 15.3 (5-19) 01/11/24 02:06 BUN 9 mg/dL (6-20) 01/11/24 02:06 Creatinine 0.2 mg/dL (0.7-1.2) L 01/11/24 02:06 GFR Calculation 500.7 mL/min (90-130) H 01/11/24 02:06 Glucose 92 mg/dL (65-115) 01/11/24 02:06 Calculated Osmolality 288 mOsm/kg (285-295) 01/11/24 02:06 Lactic Acid 0.8 mmol/L (0.5-2.2) 01/10/24 03:37 Calcium 8.5 mg/dL (8.5-10.5) 01/11/24 02:06 Magnesium 1.8 mg/dL (1.7-2.3) 01/09/24 03:57 Total Bilirubin 0.2 mg/dL (0.15-1.2) 01/08/24 13:15 AST 19 U/L (0-40) 01/08/24 13:15 ALT 26 U/L (0-41) 01/08/24 13:15 Alkaline Phosphatase 123 U/L (40-130) 01/08/24 13:15 C-Reactive Protein 201.6 mg/L (0.0-4.9) H 01/10/24 03:37 Total Protein 7.8 g/dL (6.6-8.7) 01/08/24 13:15 Albumin 3.5 g/dL (3.5-5.2) 01/08/24 13:15 Globulin 4.3 g/dL (1.3-4.6) 01/08/24 13:15 Lipase 20 U/L (13-60) 01/08/24 13:15 Procalcitonin 0.21 ng/mL (0-0.5) 01/10/24 03:37 Urine Color Yellow (Yellow) 01/08/24 20:30 Urine Appearance Clear (CLEAR) 01/08/24 20:30 Urine pH 7 (5-7) 01/08/24 20:30 Ur Specific [place] 1.005 (1.005-1.030) 01/08/24 20:30 Urine Protein 1+ (Negative) H 01/08/24 20:30 Urine Glucose (UA) Norm (Normal) 01/08/24 20:30 Urine Ketones 1+ (Negative) H 01/08/24 20:30 Urine Blood Trace (Negative) H 01/08/24 20:30 Urine Nitrate Negative (Negative) 01/08/24 20:30 Urine Bilirubin Neg (Negative) 01/08/24 20:30 Urine Urobilinogen 1 mg/dL (Negative) H 01/08/24 20:30 Ur Leukocyte Esterase Negative (Negative) 01/08/24 20:30 Urine RBC 0-4 /hpf (0-2) H 01/08/24 20:30 Urine WBC None /hpf (0-5) 01/08/24 20:30 Ur Squamous Epith Cells None /hpf (0-5) 01/08/24 20:30 Amorphous Sediment Not Reportable 01/08/24 20:30 Urine Bacteria None /hpf (NONE) 01/08/24 20:30 Urine Mucus N /hpf 01/08/24 20:30 Bronch Specimen Source Left lower lobe bal 01/09/24 07:45 Bronchial Fluid Color Red 01/09/24 07:45 Bronchial Fluid Appearance Cloudy (CLEAR) 01/09/24 07:45 Bronch Cells Counted 200 01/09/24 07:45 Bronchial Neutrophils 77.00 % (0.9-2.3) H 01/09/24 07:45 Bronchial Lymphocytes 5.00 % (10.71-12.91) L 01/09/24 07:45 Bronchial Macrophages 18.00 % (83.6-86.8) L 01/09/24 07:45 Bronchial Diff Comment Yes 01/09/24 07:45 Vancomycin Trough 26.1 ug/mL (10-15) H* 01/11/24 02:06 Micro: Microbiology 01/09/24 07:45 Gram Stain - Final Lung Left Lower Lobe Bronchoalveolar Lavage Culture - Preliminary Coag positive Staphylococcus 01/09/24 07:43 Gram Stain - Final Lung Right Lower Lobe Bronchoalveolar Lavage Culture - Preliminary Coag positive Staphylococcus A&P Assessment and plan (1) Left lower lobe consolidation: (2) Recurrent pneumonia: (3) ALS (amyotrophic lateral sclerosis): (4) At risk for aspiration: (5) Weak cough: Plan # Recurrent left lower lobe pneumonia with persistent atelectasis # At high risk for aspiration due to underlying ALS; weak cough -Received at least 4-5 rounds of Augmentin since July 2023 with 2 hospitalizations in October 2023 and November 2023 -This admission again CT imaging suggestive of worsening left lower lobe consolidation with questionable endobronchial mucous plug/lesion -S/p bronchoscopy 10/16/2023 and 12/15/2023-found to have copious thick mucous plugs which were completely occluding left lower lobe airways, all the secretions were thoroughly suctioned and cleared the airways. Therapeutic bronchoscope was replaced with diagnostic bronchoscope and advanced further into left lower lobe segments and did not notice any endobronchial lesions. -BAL cultures grew Streptococcus in October 2023 and Staph aureus in November 2023. Patient was treated with antibiotics. BAL Aspergillus, beta D glucan, blasto mitis antibodies, mycobacterial cultures, fungal cultures were all negative. -Cytology showed atypical degenerating cells-no definitive well-preserved diagnostic malignant cells identified. -There is a concern for underlying malignancy causing endobronchial lesion-however diagnostic bronchoscopic examination did not reveal any endobronchial lesions and both times cultures were positive for bacteria and he was treated with antibiotics. I ordered PET CT scan as outpatient-however authorization has to come through [place] and it is taking time. -01/10/2024 underwent repeat bronchoscopic examination of airways, clearance of airways, obtained bronchoalveolar lavage to send for repeat cultures and cytology; No endobronchial lesions noted. -Since bronchoscopy-patient reported improvement in his respiratory status; he is white count is trending down; no fever spikes noted -Okay to cover with vancomycin and meropenem for broader coverage and healthcare associated pneumonia -BAL cultures showed coagulase positive staph-sensitivities pending-if current cultures grew MRSA-plan is to switch to oral linezolid - ordered out pt PETct - pending [facility] authorization -Overall due to his underlying ALS-patient is unable to expectorate effectively. Recommended to continue chest vest therapy 3 times daily and CoughAssist device # ALS -Uses noninvasive ventilator at nighttime Attestations Medical Necessity Statement*: Discharge pending antibiotic adjustment while awaiting for final cultures Time Spent in Patient Care: Greater than 35 minutes (>than 50% of time spent in counselling and/or direct pt care on unit). Critical Care Time: The high probability of a clinically significant, sudden or life threatening deterioration of the patient's [Pulmonary] system(s) required my full and direct attention, intervention and personal management. The critical care time is as shown. This time is in addition to time spent performing any reported procedures but includes the following: [x] Data and vital sign review and interpretation [x] Patient assessment, examination and intervention [x] Documentation [x] Medication orders and management Critical Care Time (min): 41 Coding Level of Care Code Acute Code for Chg Fwd Diagnoses Left lower lobe consolidation J18.1 Recurrent pneumonia J18.9 ALS (amyotrophic lateral sclerosis) G12.21 At risk for aspiration Z91.89 Weak cough R05.8 Time Spent (min) 41
[2024-01-11] MEDS: sertraline 50 mg Tablet PEG-TUBE (21:39)
[2024-01-11] MEDS: NORTRIPTYLINE 10 MG/5 ML 30 EACH FEED TUBE (21:39)
[2024-01-11] MEDS: cetirizine 10 mg Tablet PO (21:39)
[2024-01-11] MEDS: GABAPENTIN 250 MG/5 ML 500 EACH PO (21:39)
[2024-01-11] MEDS: famotidine 20 mg Tablet PEG-TUBE (21:39)
[2024-01-12] VITALS (14 sets, daily range): BP systolic 99–116; BP diastolic 56–78; PULSE 91–110; RESP 15–21; TEMP 36.7–37.3; O2SAT 90–95; BMI 16.2
[2024-01-12] MEDS: vancomycin 100 mg/1 mL Oral Syringe 125 MG XX (00:20)
[2024-01-12] MEDS: meropenem 500 MG in sodium chloride 0.9% (plus) 50 ML 100 MG IV ×2 (00:20→08:31)
[2024-01-12 05:12] LABS: Basophils # 0.1 10^3/uL (0.0-0.1); Basophils % 0.5 %; Eosinophils # 0.1 10^3/uL (0.0-0.8); Eosinophils % 1.4 %; Hematocrit 30.3 % (37-53); Lymphocytes % 20.1 %; Mean Corpuscular HGB Conc 31.7 g/dL (30-55); Mean Corpuscular Hemoglobin 29.3 pg (27-33); Mean Corpuscular Volume 92.4 fl (82-101); Mean Platelet Volume 9.7 fL (7.4-10.4); Monocytes # 0.6 10^3/uL (0.2-0.9); Monocytes % 6.6 %; Neutrophils % 71.1 %; Nucleated Red Blood Cells % 0 %; Platelet Count 569 10^3/cmm (157-399); Red Blood Count 3.28 10^6/uL (3.85-5.65); Red Cell Distribution Width 14.5 % (12.1-15.1); White Blood Count 9.71 10^3/uL (3.29-11.43)
[2024-01-12 05:41] LABS: Blood Urea Nitrogen 11 mg/dL (6-20); Calcium 8.9 mg/dL (8.5-10.5); Carbon Dioxide 28 mmol/L (22-29); Chloride 101 mmol/L (98-107); Glomerular Filtration Rate 500.7 mL/min (90-130); Glucose 82 mg/dL (65-115); Osmolality Calculated 294 mOsm/kg (285-295); Sodium 143 mmol/L (136-145)
[2024-01-12 05:44] LABS: Anion Gap 18.2 (5-19); Potassium 4.2 mmol/L (3.5-5.1)
[2024-01-12] MEDS: guaiFENesin 100 mg/5 mL UDC 10 mL 600 MG PEG-TUBE (10:00)
--- NOTE | 2024-01-12 10:00 | P.DS_ITS ---
Discharge Providers Date of Admission: 01/08/24 16:11 Date of Discharge: January 12, 2024 Attending Provider at Admission: Brisa Kay MD Attending Provider at Discharge: Raymundo Diaz MD Primary Care Provider: MORENO Ferrara Diagnoses at Discharge Discharge Diagnosis (1) Left lower lobe consolidation: Status: Chronic (2) Recurrent pneumonia: Status: Chronic (3) ALS (amyotrophic lateral sclerosis): Status: Chronic Permanent problem details: Diagnosed in 2019 (4) At risk for aspiration: Status: Chronic (5) Weak cough: Status: Chronic Reason for Visit Reason for Visit: abd pain Hospital Course Hospital Course Mr. Espinosa is electric scooter dependent with oropharyngeal dysphagia status post PEG tube, inflammatory bowel disease takes Entyvio, ALS takes Riluzole, recurrent C. difficile infection, currently on 2-month tapering regimen has an appointment at [facility] for fecal transplant on January 29, who was admitted on 01/07 for multifocal pneumonia he was admitted to the ICU Dr. Chavez was consulted for bronchoscopy, lot of purulent secretions were cleared bilaterally from right and left lower lung zone, BAL lavage was done, culture is showing Staphylococcus schleiferi sub, Dr. Keene recommended linezolid suspension 14- day regimen Which is sensitive to as per the sensitivity report to linezolid, Blood cultures are negative, patient has been using his home BiPAP machine, repeat x-ray has not shown recurrence of mucous plug, it is consistent with pneumonia, fever subsided, for persistent tachycardia I requested D-dimer which came back high CT chest and venous Doppler did not show any thromboembolic disease At the time of discharge family has been counseled on discontinuing amoxicillin and Levaquin and take vancomycin twice a day regimen for 1 week then once a day for 7 days and then every other day and then hold 48 hours before fecal transplant on January 29 Patient will get 14 days linezolid suspension Since Dr. Chavez is leaving he is planning to get in touch with Dr. Liz if bronchoscopy is needed for recurrent mucous plugs in future Please review pulmonary and ID consult note for further details Is being discharged with stable hemodynamics white count is normal at the time of discharge hemoglobin 9.6, no electrolyte abnormality, patient tolerating feeding tube At baseline his heart rate remains 100-110 sinus rhythm Physical Exam Narrative: Patient tolerating BiPAP Current tolerating feeding tube Afebrile Tachycardia remains around 110 Discharge Data Studies Completed and Pending Completed Studies During Hospitalization Category Date Time Status CTA PE [CT angio chest PE protcl 22815] Urgent Cat Scan 01/09/24 10:40 Completed CXRP [XR chest 1V portable [id number]] Routine Exams 01/11/24 07:25 [place] [id number] Routine Ultrasound 01/09/24 10:40 Completed Pending at discharge Category Date Time Status Blood Culture AM LABS Lab 01/09/24 04:02 Results Bronchoalv Lavage Culture & GS Routine Lab 01/09/24 07:45 Results Cytology [PTH] Routine Pth 01/09/24 07:44 Received Radiology Impressions Chest CTA 01/09/24 10:40 IMPRESSION: 1. Multifocal pneumonia, left worse than right. 2. No evidence of PE or acute aortic abnormality. Chest X-Ray 01/11/24 07:25 IMPRESSION: 1. Persistent LEFT lower lobe infiltrate showing little change. Laboratory Results WBC 9.71 10^3/uL (3.29-11.43) 01/12/24 04:35 RBC 3.28 10^6/uL (3.85-5.65) L 01/12/24 04:35 Hgb 9.60 g/dL (11.27-16.99) L 01/12/24 04:35 Hct 30.3 % (37-53) L 01/12/24 04:35 MCV 92.4 fl (82-101) 01/12/24 04:35 MCH 29.3 pg (27-33) 01/12/24 04:35 MCHC 31.7 g/dL (30-55) D 01/12/24 04:35 RDW 14.5 % (12.1-15.1) 01/12/24 04:35 Plt Count 569 10^3/cmm (157-399) H 01/12/24 04:35 MPV 9.7 fL (7.4-10.4) 01/12/24 04:35 Neut % (Auto) 71.1 % 01/12/24 04:35 Lymph % (Auto) 20.1 % 01/12/24 04:35 [place] % (Auto) 6.6 % 01/12/24 04:35 Eos % (Auto) 1.4 % 01/12/24 04:35 Baso % (Auto) 0.5 % 01/12/24 04:35 Neut # (Auto) 6.90 10^3/uL (1.8-7.7) 01/12/24 04:35 Lymph # (Auto) 2.0 10^3/uL (0.8-4.8) 01/12/24 04:35 [place] # (Auto) 0.6 10^3/uL (0.2-0.9) 01/12/24 04:35 Eos # (Auto) 0.1 10^3/uL (0.0-0.8) 01/12/24 04:35 Baso # (Auto) 0.1 10^3/uL (0.0-0.1) 01/12/24 04:35 Nucleated RBC % (auto) 0 % 01/12/24 04:35 Nucleated RBCs # 0.0 /100WBC 01/12/24 04:35 PT 14.80 SECONDS (12.1-14.9) 01/09/24 03:57 INR 1.13 (0.8-1.2) 01/09/24 03:57 APTT 35.5 SECONDS (23.9-36.7) 01/09/24 03:57 D-Dimer 1.35 ug/mLFEU (0-0.59) H 01/09/24 03:57 Sodium 143 mmol/L (136-145) 01/12/24 04:35 Potassium 4.2 mmol/L (3.5-5.1) 01/12/24 04:35 Chloride 101 mmol/L (98-107) 01/12/24 04:35 Carbon Dioxide 28 mmol/L (22-29) 01/12/24 04:35 Anion Gap 18.2 (5-19) 01/12/24 04:35 BUN 11 mg/dL (6-20) 01/12/24 04:35 Creatinine 0.2 mg/dL (0.7-1.2) L 01/12/24 04:35 GFR Calculation 500.7 mL/min (90-130) H 01/12/24 04:35 Glucose 82 mg/dL (65-115) 01/12/24 04:35 Calculated Osmolality 294 mOsm/kg (285-295) 01/12/24 04:35 Lactic Acid 0.8 mmol/L (0.5-2.2) 01/10/24 03:37 Calcium 8.9 mg/dL (8.5-10.5) 01/12/24 04:35 Magnesium 1.8 mg/dL (1.7-2.3) 01/09/24 03:57 Total Bilirubin 0.2 mg/dL (0.15-1.2) 01/08/24 13:15 AST 19 U/L (0-40) 01/08/24 13:15 ALT 26 U/L (0-41) 01/08/24 13:15 Alkaline Phosphatase 123 U/L (40-130) 01/08/24 13:15 C-Reactive Protein 201.6 mg/L (0.0-4.9) H 01/10/24 03:37 Total Protein 7.8 g/dL (6.6-8.7) 01/08/24 13:15 Albumin 3.5 g/dL (3.5-5.2) 01/08/24 13:15 Globulin 4.3 g/dL (1.3-4.6) 01/08/24 13:15 Lipase 20 U/L (13-60) 01/08/24 13:15 Procalcitonin 0.21 ng/mL (0-0.5) 01/10/24 03:37 Urine Color Yellow (Yellow) 01/08/24 20:30 Urine Appearance Clear (CLEAR) 01/08/24 20:30 Urine pH 7 (5-7) 01/08/24 20:30 Ur Specific [place] 1.005 (1.005-1.030) 01/08/24 20:30 Urine Protein 1+ (Negative) H 01/08/24 20:30 Urine Glucose (UA) Norm (Normal) 01/08/24 20:30 Urine Ketones 1+ (Negative) H 01/08/24 20:30 Urine Blood Trace (Negative) H 01/08/24 20:30 Urine Nitrate Negative (Negative) 01/08/24 20:30 Urine Bilirubin Neg (Negative) 01/08/24 20:30 Urine Urobilinogen 1 mg/dL (Negative) H 01/08/24 20:30 Ur Leukocyte Esterase Negative (Negative) 01/08/24 20:30 Urine RBC 0-4 /hpf (0-2) H 01/08/24 20:30 Urine WBC None /hpf (0-5) 01/08/24 20:30 Ur Squamous Epith Cells None /hpf (0-5) 01/08/24 20:30 Amorphous Sediment Not Reportable 01/08/24 20:30 Urine Bacteria None /hpf (NONE) 01/08/24 20:30 Urine Mucus N /hpf 01/08/24 20:30 Bronch Specimen Source Left lower lobe bal 01/09/24 07:45 Bronchial Fluid Color Red 01/09/24 07:45 Bronchial Fluid Appearance Cloudy (CLEAR) 01/09/24 07:45 Bronch Cells Counted 200 01/09/24 07:45 Bronchial Neutrophils 77.00 % (0.9-2.3) H 01/09/24 07:45 Bronchial Lymphocytes 5.00 % (10.71-12.91) L 01/09/24 07:45 Bronchial Macrophages 18.00 % (83.6-86.8) L 01/09/24 07:45 Bronchial Diff Comment Yes 01/09/24 07:45 Vancomycin Trough 26.1 ug/mL (10-15) H* 01/11/24 02:06 Vitals Last Vital Signs Temp 98.0 F 01/12/24 04:00 Pulse 97 01/12/24 08:52 Resp 20 H 01/12/24 08:52 BP 116/76 01/12/24 08:00 Pulse Ox 94 01/12/24 08:52 O2 Del Method Room Air 01/12/24 08:52 FiO2 21 01/11/24 08:10 Discharge Plan Discharge Patient Disposition: Home Condition: Stable Prescriptions: New Zyvox 100 mg/5 mL suspension for reconstitution 600 mg PO BID 14 Days Qty: 840 0RF Continued sertraline [Zoloft] 20 mg/mL concentrate 50 mg feeding tube BEDTIME Rx Instructions: 2.5 ml at bedtime per (there are no dose/frequency instructions on bottle) vancomycin 50 mg/mL recon soln 125 mg PO BID 7 Days Qty: 35 0RF Rx Instructions: use week 1 vancomycin 50 mg/mL recon soln 125 mg PO DAILY 7 Days Qty: 80 0RF Rx Instructions: week 2 vancomycin 50 mg/mL recon soln 125 mg PO .every other day 60 Days Qty: 80 0RF Rx Instructions: week 3 onwards Entyvio 300 mg Recon Soln 300 mg IV DIRECTED Rx Instructions: every 8 weeks cetirizine 1 mg/mL Solution 10 mg PO BEDTIME Rx Instructions: 10 ml famotidine 40 mg/5 mL (8 mg/mL) Suspension For Reconstitution 20 mg PO BEDTIME Rx Instructions: 2.5 ml gabapentin 250 mg/5 mL Solution 500 mg PO BEDTIME Rx Instructions: 10 ml riluzole 50 mg Tablet 50 mg PO BID Rx Instructions: administer on an empty stomach, at least 1 hour before or 2 hours after food/meal(s) nortriptyline 10 mg/5 mL Solution 30 mg feeding tube BEDTIME scopolamine base 1 mg over 3 days Patch 3 Day 0.5 patch TRANSDERMAL Q2D acetaminophen 500 mg/15 mL Liquid 1,000 mg feeding tube Q4-5H PRN (Reason: Fever) Jing-Tussin 100 mg/5 mL Liquid 600 mg PO BID Dificid 200 mg tablet 200 mg feeding tube BID PRN (Reason: c diff) Discontinued linezolid 100 mg/5 mL suspension for reconstitution 600 mg PO Q12H 14 Days Qty: 840 0RF amoxicillin-pot clavulanate 875-125 mg tablet 1 tab feeding tube BID levofloxacin 500 mg tablet 500 mg feeding tube DAILY Discharge Orders: Discharge Order (Routine); Ordered 01/12/24 Ordered By: Raymundo Diaz Referrals: Chel Weinstein FNP [Primary Care Provider] - 4-7 days (We have notified your physician's clinic of the need for a follow-up appointment to be scheduled. If you have not heard from them within the next 2 business days, please call them directly. upon calling [place] phone service ,for appointment ,comment: to will contact [facility] and will get back to for follow up appointment for this appointment.) Discharge Diet: Resume prior tube feeds Patient Instructions: Clostridium Difficile, Linezolid (By mouth) (Zyvox), How to Use and Care for Your PEG Tube (DC), Aspiration Pneumonia (DC), ALS (Amyotrophic Lateral Sclerosis) (DC), Community Acquired Pneumonia (DC), Contact Precautions (DC), Aspiration Precautions (DC), Opioid Safety, Pneumonia Stoplight Discharge Attestations Time Spent in Discharge Care*: greater than 30 min Status at Discharge: Cognitive status at discharge: cognitively intact , Behavioral status at discharge: cooperative , Quality Metrics Clinical Quality Measures [ No reported AMI, CVA or VTE this stay] Coding Level of Care Code Acute Code for Chg Fwd Diagnoses Left lower lobe consolidation J18.1 Recurrent pneumonia J18.9 ALS (amyotrophic lateral sclerosis) G12.21 At risk for aspiration Z91.89 Weak cough R05.8
[2024-01-12] MEDS: scopolamine 1.5 Patch 0.5 PATCH TRANSDERMA (10:01)
[2024-01-12] MEDS: RILUZOLE 50 MG 50 EACH PO (10:03)
[2024-01-12] MEDS: vancomycin 1,250 MG/250 ML PIGGYBACK 200 MG IV (10:04)
--- NOTE | 2024-01-12 10:18 | PC.SOCIAL ---
IMM Update pg 2 of IMM updated and reviewed w/ patient. Copy provided and copy dated, initialed and placed in chart.
--- NOTE | 2024-01-12 12:20 | PC.NURSE ---
Discharge Note Patient discharged to [home] via [w/c to POV] accompanied by [his ]. Discharge instructions reviewed with patient and/or in store marketing representative. Mobile pharmacy medications and/or prescriptions provided. Belongings/home medications returned.
== END 2024-01-12 12:22 | disposition home or self-care (01) | DRG 178 ==
LOC: ER 15:52 → ICU 16:12
PROVIDERS: Internal Medicine Pulmonary Disease; Physician Assistant; Admitting Provider Hospitalist; Emergency Provider Emergency Medicine; PCP Nurse Practitioner; Visit Provider Internal Medicine
PROC: 0BJ08ZZ Inspection of Tracheobronchial Tree, Via Natural or Artificial Opening Endoscopic (ICD-10-PCS; CPT 31622; principal; 2024-01-09 06:45)
DX: J15.29 Pneumonia due to other staphylococcus (principal); G12.21 Amyotrophic lateral sclerosis; K51.90 Ulcerative colitis, unspecified, without complications; T17.890A Other foreign object in other parts of respiratory tract causing asphyxiation, initial encounter; R21 Rash and other nonspecific skin eruption; Z99.89 Dependence on other enabling machines and devices; R13.12 Dysphagia, oropharyngeal phase; Z93.1 Gastrostomy status; G62.9 Polyneuropathy, unspecified; F32.A Depression, unspecified; K63.89 Other specified diseases of intestine; Z99.3 Dependence on wheelchair; D63.8 Anemia in other chronic diseases classified elsewhere; B96.89 Other specified bacterial agents as the cause of diseases classified elsewhere; R05.8 Other specified cough; Z91.89 Other specified personal risk factors, not elsewhere classified; Y99.9 Unspecified external cause status
CPT/HCPCS: 31624; 31645; 36415; 71045; 71275; 80048; 80053; 80202; 80503; 81001; 83605; 83690; 83735; 84145; 85025; 85378; 85610; 85730; 86140; 87040; 87070; 87077; 87186; 87205; 88112; 88305; 89050; 93970; 94640; 94664; 94669; 96365; 96367; 96372; 99285; J1650; J2020; J2185; J2704; J3370; J3480; J7030; J7608; Q9967

== ENCOUNTER 2024-01-22 14:24 | Oncology outpatient (recurring) (ONCR) | payer OTHER, SELFPAY ==
[2024-01-22 14:56] VITALS: BP 105/74; PULSE 111; RESP 18; TEMP 37.1
[2024-01-22] MEDS: vedolizumab 300 MG in sodium chloride 0.9% 250 ML 500 MG IV (15:35)
[2024-01-22 16:10] VITALS: BP 117/70; PULSE 111; RESP 16; TEMP 37.2; O2SAT 93
== END 2024-02-14 23:59 | disposition home or self-care (01) ==
PROVIDERS: PCP Nurse Practitioner; Visit Provider Nurse Practitioner
DX: K51.90 Ulcerative colitis, unspecified, without complications (principal)
CPT/HCPCS: 96413; J3380; J7050

== ENCOUNTER 2024-01-24 10:00 | Outpatient (CLI) | payer OTHER, SELFPAY ==
[2024-01-24 11:36] LABS: C.Diff PCR (Lab) NEGATIVE (Negative)
== END 2024-01-24 10:01 | disposition home or self-care (01) ==
LOC: LAB 10:01
PROVIDERS: PCP Nurse Practitioner; Visit Provider Student in an Organized Health Care Education/Training Program
DX: A04.71 Enterocolitis due to Clostridium difficile, recurrent (principal)
CPT/HCPCS: 87493

== ENCOUNTER 2024-02-06 16:44 | Outpatient (CLI) | payer OTHER, SELFPAY ==
[2024-02-06 17:00] LABS: Basophils % 0.4 %; Eosinophils # 0.2 10^3/uL (0.0-0.8); Eosinophils % 1.6 %; Lymphocytes % 18.1 %; Mean Corpuscular HGB Conc 31.5 g/dL (30-55); Mean Corpuscular Hemoglobin 29.6 pg (27-33); Mean Corpuscular Volume 94.2 fl (82-101); Mean Platelet Volume 10.8 fL (7.4-10.4); Monocytes # 0.8 10^3/uL (0.2-0.9); Neutrophils # 7.92 10^3/uL (1.8-7.7); Neutrophils % 72.4 %; Nucleated Red Blood Cells % 0 %; Platelet Count 643 10^3/cmm (157-399); Red Blood Count 3.61 10^6/uL (3.85-5.65); Red Cell Distribution Width 16.7 % (12.1-15.1); White Blood Count 10.93 10^3/uL (3.29-11.43)
== END 2024-02-06 16:45 | disposition home or self-care (01) ==
LOC: LAB 16:46
PROVIDERS: PCP Nurse Practitioner; Visit Provider Nurse Practitioner
DX: R79.9 Abnormal finding of blood chemistry, unspecified (principal)
CPT/HCPCS: 85025

== ENCOUNTER → 2024-02-13 12:17 | Outpatient (BNVA) | payer OTHER, SELFPAY | PROVIDERS: PCP Nurse Practitioner; Visit Provider Student in an Organized Health Care Education/Training Program | DX: J18.9 Pneumonia, unspecified organism (principal); A04.71 Enterocolitis due to Clostridium difficile, recurrent | CPT/HCPCS: 99215 ==

== ENCOUNTER 2024-03-01 15:44 | Outpatient (CLI) | payer OTHER, SELFPAY ==
[2024-03-01 16:00] LABS: Basophils # 0.1 10^3/uL (0.0-0.1); Basophils % 0.6 %; Eosinophils # 0.2 10^3/uL (0.0-0.8); Hematocrit 36.1 % (37-53); Lymphocytes # 1.9 10^3/uL (0.8-4.8); Lymphocytes % 19.5 %; Mean Corpuscular HGB Conc 31.6 g/dL (30-55); Mean Platelet Volume 10.4 fL (7.4-10.4); Monocytes # 0.6 10^3/uL (0.2-0.9); Monocytes % 6.3 %; Neutrophils # 6.98 10^3/uL (1.8-7.7); Neutrophils % 71.3 %; Nucleated Red Blood Cells % 0 %; Platelet Count 515 10^3/cmm (157-399); Red Cell Distribution Width 16.2 % (12.1-15.1)
== END 2024-03-01 15:45 | disposition home or self-care (01) ==
LOC: LAB 15:46
PROVIDERS: PCP Nurse Practitioner; Visit Provider Nurse Practitioner
DX: G12.21 Amyotrophic lateral sclerosis (principal)
CPT/HCPCS: 85025

== ENCOUNTER 2024-03-19 12:58 | Oncology outpatient (recurring) (ONCR) | payer OTHER, SELFPAY ==
[2024-03-19] MEDS: vedolizumab 300 MG in sodium chloride 0.9% 250 ML 500 MG IV (14:11)
[2024-03-19 15:00] VITALS: BP 151/81; PULSE 88; RESP 22; TEMP 36.6; O2SAT 98
== END 2024-04-15 23:59 | disposition home or self-care (01) ==
PROVIDERS: PCP Nurse Practitioner; Visit Provider Nurse Practitioner
DX: Z79.620 Long term (current) use of immunosuppressive biologic; K51.00 Ulcerative (chronic) pancolitis without complications
CPT/HCPCS: 96360; J3380; J7050

== ENCOUNTER 2024-03-24 13:45 | Emergency (ER) | payer OTHER, MEDICARE, SELFPAY ==
[2024-03-24] VITALS (9 sets, daily range): BP systolic 100–108; BP diastolic 62–71; PULSE 98–112; RESP 16–34; TEMP 36.6; O2SAT 93–100
--- NOTE | 2024-03-24 14:12 | XRR_ITS ---
PROCEDURE INFORMATION: Exam: XR Chest Exam date and time: 03/24/2024 2:42 PM Age: 53 years old Clinical indication: Shortness of breath; Patient HX: Cough; Als; HX mucus plugs TECHNIQUE: Imaging protocol: Radiologic exam of the chest. Views: 1 view. COMPARISON: CR XR chest 1V portable [id number] 01/11/2024 7:35 AM FINDINGS: Lungs: Patchy right lower lobe infiltrate. Minimal left basilar infiltrate. Pleural spaces: Unremarkable. No pleural effusion. No pneumothorax. Heart/Mediastinum: Unremarkable. No cardiomegaly. Bones/joints: Unremarkable. XR/XR chest 1V portable [id number] IMPRESSION: 1. Patchy right lower lobe infiltrate. 2. Minimal left basilar infiltrate.
--- NOTE | 2024-03-24 14:26 | ED_ITS ---
HPI - SOB/Dyspnea 2 General: Chief Complaint: Shortness of Breath/Dyspnea Stated Complaint: possible mucas plugging in lungs Time Seen by Provider: 03/24/24 13:50 History of Present Illness: HPI Narrative: 53-year-old man with a history of ALS an d recurrent pneumonia who presents to the emergency room with worsening shortness of breath and right chest pain. This is often associated with mucous plugging. I am quite familiar with the patient. His breathing is a little bit worse. He is on his nasal BiPAP at this time. Had some low-grade temperatures and was started on antibiotics. Currently on Omnicef. Pain became worse today so they came to the emergency room. He often needs to have bronchoscopy to open up plugging. states that Dr. Liz has agreed to do bronchoscopy if it is needed here and they have the equipment necessary. Related Data Home Medications Medication Instructions Recorded Confirmed vedolizumab 300 mg intravenous 300 mg IV DIRECTED 04/24/20 02/13/24 solution (Entyvio) sertraline 20 mg/mL oral 50 mg feeding tube BEDTIME 05/16/23 02/13/24 concentrate (Zoloft) cetirizine 1 mg/mL oral solution 10 mg PO BEDTIME 10/16/23 02/13/24 famotidine 40 mg/5 mL (8 mg/mL) 20 mg PO BEDTIME 12/13/23 02/13/24 oral suspension gabapentin 250 mg/5 mL oral 500 mg PO BEDTIME 12/13/23 02/13/24 solution acetaminophen 500 mg/15 mL oral 1,000 mg feeding tube Q4-5H PRN 01/08/24 02/13/24 liquid Fever fidaxomicin 200 mg tablet (Dificid) 200 mg feeding tube BID PRN c diff 01/08/24 02/13/24 guaifenesin 100 mg/5 mL oral 600 mg PO BID 01/08/24 02/13/24 liquid (Jing-Tussin) nortriptyline 10 mg/5 mL oral 30 mg feeding tube BEDTIME 01/08/24 02/13/24 solution riluzole 50 mg tablet 50 mg PO BID 01/08/24 02/13/24 scopolamine base 1 mg over 3 days 0.5 patch transdermal Q2D 01/08/24 02/13/24 transdermal patch Previous Rx's Medication Instructions Recorded vancomycin 50 mg/mL oral solution 125 mg (2.5 mL) PO .every other 01/05/24 day 2 months #80 mL vancomycin 50 mg/mL oral solution 125 mg (2.5 mL) PO BID 7 days #35 01/05/24 mL cefdinir 300 mg capsule 300 mg PO BID PRN pneumonia 5 days 02/22/24 #10 caps vancomycin 50 mg/mL oral solution 125 mg (2.5 mL) PO DAILY PRN c 02/22/24 diff 7 days #80 mL Allergies Allergy/AdvReac Type Severity Reaction Status Date / Time No Known Allergies Allergy Verified 02/13/24 12:35 Review of Systems 2 Narrative: Constitutional symptoms: Negative except as documented in HPI. Skin symptoms: Negative except as documented in HPI. Eye symptoms: Negative except as documented in HPI. ENMT symptoms: Negative except as documented in HPI. Respiratory symptoms: Negative except as documented in HPI. Cardiovascular symptoms: Negative except as documented in HPI. Gastrointestinal symptoms: Negative except as documented in HPI. Genitourinary symptoms: Negative except as documented in HPI. Musculoskeletal symptoms: Negative except as documented in HPI. Neurologic symptoms: Negative except as documented in HPI. Psychiatric symptoms: Negative except as documented in HPI. Endocrine symptoms: Negative except as documented in HPI. PFSH ED 2 PFSH: Medical History (Updated 03/24/24 @ 16:25 by Cole Contreras MD) S/P fecal transplant D-dimer, elevated Multiple tracheobronchial mucus plugs Weak cough At risk for aspiration Left lower lobe consolidation Recurrent pneumonia SI (sacroiliac) pain Anemia of chronic disease Depression Peripheral neuropathy Recurrent Clostridioides difficile diarrhea Fracture of femoral neck, right Chronic, nondisplaced, for non operative management to date, follows with [facility] Small bowel obstruction 06/08 C. difficile enteritis Ulcerative (chronic) enterocolitis ALS (amyotrophic lateral sclerosis) Diagnosed in 2019 Surgical History History of oral surgery History of esophageal surgery Family History Denies family history of Diabetes Hypertension Social History Smoking and tobacco/nicotine status: never used tobacco/nicotine Alcohol intake: never Substance/Drug Use: never Physical Exam 2 Narrative: EXAM NARRATIVE: General: Alert, no acute distress. Skin: Warm, dry. Head: Normocephalic, atraumatic. Neck: Supple, trachea midline. Eye: Extraocular movements are intact. Ears, nose, mouth and throat: mucosa moist. Cardiovascular: Regular, tachycardic, normal peripheral perfusion. Respiratory: Rhonchi and wheeze in the right lower lung. Diminished breath sounds in the left lung inferiorly. Patient has his BiPAP and. No increased work of breathing at this time. Gastrointestinal: Soft, Nontender, Non distended Musculoskeletal: Normal ROM, no deformity. Neurological: Alert and oriented, No no new focal neurological deficit observed. Psychiatric: Cooperative, appropriate mood & affect. Course 2 Vital Signs: Vital signs: Vital Signs Temperature 97.8 F 03/24/24 13:50 Pulse Rate 104 H 03/24/24 16:47 Respiratory Rate 34 H 03/24/24 16:47 Blood Pressure 108/71 03/24/24 13:50 Pulse Oximetry 96 03/24/24 16:47 Oxygen Delivery Me thod BiPAP 03/24/24 16:47 Fraction of Inspir ed Oxygen 21 03/24/24 16:47 MDM - SOB/Dyspnea Medical Decision Making Differential diagnosis for patient with shortness of breath includes but is not limited to and based on the above HPI, review of systems and physical exam: Pneumonia. Bronchitis. Asthma or COPD with acute exacerbation. Acute coronary syndrome / [place]. Pulmonary embolism. Anxiety. Congestive heart failure. Viral infections including influenza and Covid-19. Atrial fibrillation. Anxiety. Pleural effusion. Pneumothorax. Workup: Lab work, chest X-ray and EKG ordered to evaluate, rule in and rule out above pathologies Chest x-ray: Left sided infiltrate has resolved, however there is a new right lower lobe infiltrate. No cardiomegaly. No pneumothorax. Some flattening of the diaphragms. This would indicate possible mucous plugging. This was reviewed and interpreted by myself the emergency room physician. I also reviewed the radiology report. Lab Review: Laboratory results were reviewed and interpreted by myself the emergency room physician. White count is 17,000. This is above his baseline. does report that in clinic the other day it was 18,000 at that time as well. No anemia. Hemoglobin is 11.9. No renal failure. BUN/creatinine are 11 and 0.4. He does have some elevated bicarb which would indicate some compensation for CO2 retention. I reviewed the patient's medical record. Reexamination: Patient remained stable. No increased work of breathing. No altered mental status. No focal motor deficits. Patient has remained stable on his home breathing support. No increased oxygen requirements at this time. Consultation: I spoke with Dr. Paulson who has seen and evaluated the patient the emergency room. He is a discussed concerns with and the patient at length. They agree that patient needs to go to a facility that has pulmonology in case he needs bronchoscopy for mucous plugging which he often does. Dr. Paulson has ordered some breathing treatments for the patient. Consultation: I spoke with Dr. Elmore with the hospitalist service at [facility] in [place] who is excepted the patient to a stepdown bed. Assessment and plan: Pneumonia Possible sepsis ALS Chronic respiratory failure ?Pneumonia with some leukocytosis. Mild tachycardia. Blood pressure soft but this is his baseline. No fever here. Initial lactate is 3. - just one half L normal saline bolus. Patient has issues with fluid overload at times.. -Broad-spectrum antibiotics were administered. Patient was on Omnicef so I broaden spectrum with Zyvox as he has had staph in his sputum cultures before and meropenem. -Sepsis quality measures. -Lactic acid with a reflex was ordered. -Blood cultures were ordered. ?Patient has no altered mental status today. He is stable on his home oxygen/BiPAP support. -I discussed the patient with the hospitalist on-call who is admitting the patient. - Discussed findings and plan with patient. Answered any questions. - All laboratory values were reviewed and interpreted personally by myself, the ER physician - All imaging was reviewed and interpreted personally by myself, the ER physician. - Evaluation and treatment of this problem were appropriate in the emergency setting Lab Data 03/24/24 14:30 03/24/24 14:30 Labs/Radiology: Radiology Impressions Chest X-Ray 03/24/24 14:12 IMPRESSION: 1. Patchy right lower lobe infiltrate. 2. Minimal left basilar infiltrate. Laboratory Results WBC 17.76 10^3/uL (3.29-11.43) H 03/24/24 14:30 RBC 4.02 10^6/uL (3.85-5.65) 03/24/24 14:30 Hgb 11.90 g/dL (11.27-16.99) 03/24/24 14:30 Hct 38.3 % (37-53) 03/24/24 14:30 MCV 95.3 fl (82-101) 03/24/24 14:30 MCH 29.6 pg (27-33) 03/24/24 14:30 MCHC 31.1 g/dL (30-55) 03/24/24 14:30 RDW 14.6 % (12.1-15.1) 03/24/24 14:30 Plt Count 661 10^3/cmm (157-399) H 03/24/24 14:30 MPV 10.2 fL (7.4-10.4) 03/24/24 14:30 Neut % (Auto) 88.2 % 03/24/24 14:30 Lymph % (Auto) 6.4 % 03/24/24 14:30 [place] % (Auto) 4.2 % 03/24/24 14:30 Eos % (Auto) 0.7 % 03/24/24 14:30 Baso % (Auto) 0.2 % 03/24/24 14:30 Neut # (Auto) 15.67 10^3/uL (1.8-7.7) H 03/24/24 14:30 Lymph # (Auto) 1.1 10^3/uL (0.8-4.8) 03/24/24 14:30 [place] # (Auto) 0.7 10^3/uL (0.2-0.9) 03/24/24 14:30 Eos # (Auto) 0.1 10^3/uL (0.0-0.8) 03/24/24 14:30 Baso # (Auto) 0.0 10^3/uL (0.0-0.1) 03/24/24 14:30 Nucleated RBC % (auto) 0 % 03/24/24 14:30 Nucleated RBCs # 0.0 /100WBC 03/24/24 14:30 Sodium 138 mmol/L (136-145) 03/24/24 14:30 Potassium 4.2 mmol/L (3.5-5.1) 03/24/24 14:30 Chloride 95 mmol/L (98-107) L 03/24/24 14:30 Carbon Dioxide 30 mmol/L (22-29) H 03/24/24 14:30 Anion Gap 17.2 (5-19) 03/24/24 14:30 BUN 11 mg/dL (6-20) 03/24/24 14:30 Creatinine 0.4 mg/dL (0.7-1.2) L 03/24/24 14:30 GFR Calculation 225.0 mL/min (90-130) H 03/24/24 14:30 Glucose 183 mg/dL (65-115) H 03/24/24 14:30 Calculated Osmolality 290 mOsm/kg (285-295) 03/24/24 14:30 Lactic Acid 3.1 mmol/L (0.5-2.2) H 03/24/24 14:30 Calcium 9.5 mg/dL (8.5-10.5) 03/24/24 14:30 Total Bilirubin 0.2 mg/dL (0.15-1.2) 03/24/24 14:30 AST 16 U/L (0-40) 03/24/24 14:30 ALT 18 U/L (0-41) 03/24/24 14:30 Alkaline Phosphatase 139 U/L (40-130) H 03/24/24 14:30 C-Reactive Protein 325.4 mg/L (0.0-4.9) H 03/24/24 14:30 Total Protein 8.5 g/dL (6.6-8.7) 03/24/24 14:30 Albumin 3.7 g/dL (3.5-5.2) 03/24/24 14:30 Globulin 4.8 g/dL (1.3-4.6) H 03/24/24 14:30 Coronavirus (PCR) Negative (Negative) 03/24/24 14:22 Influenza A (PCR) Negative (Negative) 03/24/24 14:22 Influenza Type B (PCR) Negative (Negative) 03/24/24 14:22 RSV (PCR) Negative (Negative) 03/24/24 14:22 All radiology interpretation(s) finalized by discharge Discharge Plan Discharge Patient Disposition: Xfer Short-Term Hosp Clinical Impression: Pneumonia, Amyotrophic lateral sclerosis (ALS), Chronic respiratory failure, Sepsis Condition: Stable Referrals: Weinstein,Chel R, CARVING MACHINE OPERATOR [Primary Care Provider] - Coding Level of Care Code ED Guide Travel for [place] Yo
[2024-03-24 14:37] LABS: Basophils % 0.2 %; Eosinophils # 0.1 10^3/uL (0.0-0.8); Eosinophils % 0.7 %; Hematocrit 38.3 % (37-53); Lymphocytes # 1.1 10^3/uL (0.8-4.8); Lymphocytes % 6.4 %; Mean Corpuscular HGB Conc 31.1 g/dL (30-55); Mean Corpuscular Hemoglobin 29.6 pg (27-33); Mean Corpuscular Volume 95.3 fl (82-101); Mean Platelet Volume 10.2 fL (7.4-10.4); Monocytes # 0.7 10^3/uL (0.2-0.9); Monocytes % 4.2 %; Neutrophils # 15.67 10^3/uL (1.8-7.7); Neutrophils % 88.2 %; Nucleated Red Blood Cells % 0 %; Platelet Count 661 10^3/cmm (157-399); Red Blood Count 4.02 10^6/uL (3.85-5.65); Red Cell Distribution Width 14.6 % (12.1-15.1); White Blood Count 17.76 10^3/uL (3.29-11.43)
[2024-03-24 14:54] LABS: Lactic Sepsis W/Reflex 3.1 mmol/L (0.5-2.2)
[2024-03-24 14:55] LABS: Alanine Aminotransferase 18 U/L (0-41); Albumin Level 3.7 g/dL (3.5-5.2); Alkaline Phosphatase 139 U/L (40-130); Anion Gap 17.2 (5-19); Aspartate Amino Transferase 16 U/L (0-40); Blood Urea Nitrogen 11 mg/dL (6-20); C Reactive Protein 325.4 mg/L (0.0-4.9); Calcium 9.5 mg/dL (8.5-10.5); Carbon Dioxide 30 mmol/L (22-29); Chloride 95 mmol/L (98-107); Creatinine Clr Calc Pharmacy 141.1333; Globulin 4.8 g/dL (1.3-4.6); Glucose 183 mg/dL (65-115); Osmolality Calculated 290 mOsm/kg (285-295); Potassium 4.2 mmol/L (3.5-5.1); Sodium 138 mmol/L (136-145); Total Bilirubin 0.2 mg/dL (0.15-1.2); Total Protein 8.5 g/dL (6.6-8.7)
[2024-03-24 15:10] LABS: Covid PCR NEGATIVE (Negative); Influenza A NEGATIVE (Negative); Influenza B NEGATIVE (Negative); Respiratory Syncytial Virus Ce NEGATIVE (Negative)
[2024-03-24] MEDS: meropenem 500 mg SDV IVP (15:17)
[2024-03-24] MEDS: linezolid premix 600 MG/300 ML PREMIX 300 MG IV (15:17)
[2024-03-24] MEDS: sodium chloride 0.9% 500 ML 999 ML IV (16:07)
[2024-03-24] MEDS: methylPREDNISolone sod succ 125 mg/2 mL INJ 60 MG IVP (16:07)
--- NOTE | 2024-03-24 16:19 | PM.CONSULT ---
Providers/Reason For Consult Consulting Physician/Specialty*: Dr. Contreras/internal medicine Reason for Consult*: Right lower lobe pneumonia with concerns for mucous plugging Primary Care Provider: MORENO Ferrara History of Present Illness History of Present Illness Silvestre Espinosa is a 53 year old male with past medical history of ALS, chronically in wheelchair on BiPAP, history of oropharyngeal dysphagia, been placed with history of recurrent left lower lobe pneumonia with mucous plugging with multiple bronchoscopies in the past, C. difficile post fecal transplant with last bronchoscopy on 01/08 and previous to that on 10/15 and 12/13/2023 presents to the ER today with subjective fever fever not improving with Tylenol for last 3 days along with pain in the left side of the chest. Patient was concerned that he is developing a mucous plug hence he presented to the ER today. Patient has been taking cefdinir as an outpatient since . Today is Monday which was provided to him by the outpatient ID physician as pill in the pocket strategy given history of recurrent pneumonias in the past. On examination he is sitting comfortably in wheelchair, not able to clear his secretions on BiPAP saturating 95% with heart rate of 112 bpm and blood pressure of 108/70 mmHg. He has been given IV linezolid and meropenem along with liter of IV fluids and Solu-Medrol 60 mg x 1 in the ER. Review of Systems General: Reports: 10 or more systems reviewed and unremarkable except in HPI and below Const: Denies: fever(s), chills, body aches, change in appetite, change in weight, malaise, night sweats, diaphoresis, change in sleep pattern, daytime sleepiness or snoring Eyes: Denies: change in vision, blurry vision, photophobia, eye discomfort or eye discharge ENMT: Denies: throat pain, enlarged tonsils, hoarseness, mouth pain, oral sores, dry mouth, tinnitus, nasal congestion or post nasal drip Card: Denies: chest pain, palpitations, irregular heart rhythm, edema, swelling of feet/ankles, lightheadedness, syncope, pre-syncope, dyspnea on exertion, orthopnea, leg pain with exertion or acrocyanosis Resp: Denies: dyspnea, productive cough, non-productive cough, wheezing, stridor, pain on inspiration, change in phlegm color, hemoptysis or chest congestion GI: Denies: abdominal pain, nausea, vomiting, hematemesis, coffee ground emesis, dysphagia, heartburn, diarrhea, constipation, bloating, GI cramping, change in bowel habits, pain on defecation, hematochezia or melena : Denies: flank pain, difficulty urinating, dysuria, urinary frequency, urinary urgency, urinary hesitancy, urinary dribbling, difficulty starting urination, change in urine stream, nocturia or hematuria Musc: Denies: neck pain, back pain, extremity pain, joint pain, joint swelling, joint redness, joint stiffness or limited range of motion Neuro: Denies: headache(s), numbness in extremities, weakness in extremities, sensory changes, lack of coordination, difficulty walking, frequent falls, dizziness, vertigo, confusion, Slurred speech present, difficulty communicating thoughts or seizure-like activity Psych: Denies: anxiety, depression, mood swings, panic attacks, hopelessness or irritability Endo: Denies: polyuria, polydipsia, tired all the time, cold intolerance, excessive sweating, flushing or heat intolerance Piero/Lymph: Denies: easy bruising or easy bleeding All/Imm: Denies: tongue swelling, facial swelling or acute wheezing Medications/Allergies Home Medications Medication Instructions Recorded Confirmed Last Taken Type vedolizumab 300 mg intravenous 300 mg IV DIRECTED 04/24/20 02/13/24 11/14/23 History solution (Entyvio) sertraline 20 mg/mL oral 50 mg feeding tube BEDTIME 05/16/23 02/13/24 01/07/24 21:00 History concentrate (Zoloft) cetirizine 1 mg/mL oral solution 10 mg PO BEDTIME 10/16/23 02/13/24 01/07/24 21:00 History famotidine 40 mg/5 mL (8 mg/mL) 20 mg PO BEDTIME 12/13/23 02/13/24 01/07/24 21:00 History oral suspension gabapentin 250 mg/5 mL oral 500 mg PO BEDTIME 12/13/23 02/13/24 01/07/24 21:00 History solution vancomycin 50 mg/mL oral solution 125 mg (2.5 mL) PO .every other 01/05/24 02/13/24 Unknown Rx day 2 months #80 mL vancomycin 50 mg/mL oral solution 125 mg (2.5 mL) PO BID 7 days #35 01/05/24 02/13/24 01/08/24 09:00 Rx mL acetaminophen 500 mg/15 mL oral 1,000 mg feeding tube Q4-5H PRN 01/08/24 02/13/24 01/08/24 15:00 History liquid Fever fidaxomicin 200 mg tablet (Dificid) 200 mg feeding tube BID PRN c diff 01/08/24 02/13/24 01/02/24 History guaifenesin 100 mg/5 mL oral 600 mg PO BID 01/08/24 02/13/24 01/08/24 09:00 History liquid (Jing-Tussin) nortriptyline 10 mg/5 mL oral 30 mg feeding tube BEDTIME 01/08/24 02/13/24 01/07/24 21:00 History solution riluzole 50 mg tablet 50 mg PO BID 01/08/24 02/13/24 01/08/24 17:00 History scopolamine base 1 mg over 3 days 0.5 patch transdermal Q2D 01/08/24 02/13/24 01/08/24 09:00 History transdermal patch cefdinir 300 mg capsule 300 mg PO BID PRN pneumonia 5 days 02/22/24 Unknown Rx #10 caps vancomycin 50 mg/mL oral solution 125 mg (2.5 mL) PO DAILY PRN c 02/22/24 Unknown Rx diff 7 days #80 mL Allergies Allergy/AdvReac Type Severity Reaction Status Date / Time No Known Allergies Allergy Verified 02/13/24 12:35 PFSH Acute PFSH: Medical History (Updated 03/24/24 @ 16:25 by Cole Contreras MD) S/P fecal transplant D-dimer, elevated Multiple tracheobronchial mucus plugs Weak cough At risk for aspiration Left lower lobe consolidation Recurrent pneumonia SI (sacroiliac) pain Anemia of chronic disease Depression Peripheral neuropathy Recurrent Clostridioides difficile diarrhea Fracture of femoral neck, right Chronic, nondisplaced, for non operative management to date, follows with [facility] Small bowel obstruction 06/08 C. difficile enteritis Ulcerative (chronic) enterocolitis ALS (amyotrophic lateral sclerosis) Diagnosed in 2019 Surgical History History of oral surgery History of esophageal surgery Family History Denies family history of Diabetes Hypertension Social History Smoking and tobacco/nicotine status: never used tobacco/nicotine Alcohol intake: never Substance/Drug Use: never Vitals/I&O/Wt Last Vital Signs Temp 97.8 F 03/24/24 13:50 Pulse 112 H 03/24/24 13:50 Resp 24 H 03/24/24 13:50 BP 108/71 03/24/24 13:50 Pulse Ox 97 03/24/24 13:50 O2 Del Method BiPAP 03/24/24 13:50 Weight last 48 hrs Weight 46.72 kg Physical Exam Narrative: General: No acute distress, AO x3, chronically sick appearing, unusually communication through sign language, on BiPAP, sitting in wheelchair, thin built HEENT: PERRLA, pupils bilaterally equal and reactive Chest: Bilateral bronchial breath sounds with conductive airway sounds, rhonchi more so in right middle and lower zone CVS: S1-S2 regular, no murmurs, tachycardia, no gallops, no rubs Abdomen: Soft, nontender, no organomegaly, bowel sounds present Neuro: No focal deficits, no facial deformity, AO x3, power 5/5 in all limbs Data 03/24/24 14:30 03/24/24 14:30 Micro: Microbiology 03/24/24 14:32 Blood Culture - Preliminary Blood SPECIMEN COLLECTED 03/24/24 14:30 Blood Culture - Preliminary Blood SPECIMEN COLLECTED A&P Assessment and plan (1) Acute and chronic respiratory failure: Due to restrictive and constrictive lung disease in setting of ALS with recurrent episodes of aspiration pneumonia leading to mucous plugging in the past. Most recent bronchoscopy earlier this year required in the month of October, November and December. Keep oxygen saturation over 90%. Patient is BiPAP dependent. Urine Legionella, bacterial antigen, blood culture, sputum culture when available. Follow-up respiratory viral panel. On past history he has had pneumonia with Staphylococcus species and Streptococcus. Failed outpatient cefdinir. (2) Pneumonia: As seen on chest x-ray in right middle and lower zone. Concern for developing mucous plug. Patient in the past has almost always developed mucous plug with pneumonia requiring bronchoscopies. As per culture history for now we will start on IV linezolid and IV meropenem. Nebulization with ipratropium, Xopenex every 6 hour, Pulmicort twice daily. Received Solu-Medrol 60 mg one-time in the ER. For now can start on 40 mg every 6 hour. Chest vest as possible. Hold off on Mucomyst for now as patient is already having high thin secretions which she is not able to clear out because of ALS. NPO. Scopolamine patch. (3) Amyotrophic lateral sclerosis (ALS): Follows up with ALS clinic at [facility]. (4) S/P fecal transplant: For C. difficile. (5) Sepsis: SIRS: Tachycardic, Febrile, Leukocytosis Source: Right lower lobe pneumonia End organ damage: Not present Lactic acid within normal limits Patient already received full 30 mL/kg BW. For now we will hold off. Monitor blood pressures. Keep mean artery pressure 65 mmHg. Blood culture, urine culture, MRSA swab, procalcitonin, urine Legionella, bacterial antigen. De-escalate antibiotics as per culture results. Plan Patient has history of recurrent aspiration pneumonia because of mucous plugging in setting of ALS as he is not able to clear his secretions multiple times in the past with most recently back in December. Patient is developing right lower lobe and middle lobe pneumonia with concerns for developing mucous plug. Patient has history of pneumonia with staph in the past. Patient almost every time whenever he has a pneumonia develops a mucous plug but unfortunately we do not have pulmonary coverage or CT surgery coverage for next 1 week and in setting of mucous plugging because of history of restrictive and obstructive lung disease in setting of ALS as patient is not able to clear his secretions he is at a higher risk of decompensating if and when he develops a mucous plug. We discussed at that point the treatment could entail transferring to a tertiary center after intubating depending on the respiratory status if and when he develops a mucous plug. Discussed in detail with patient and at bedside. Both verbalized understanding and would want to avoid intubation as much as possible. They are agreeable for transfer to tertiary center where pulmonary services are available. Conveyed the same to ER physician. Till he is transferred we will continue IV antibiotics with meropenem and linezolid along with nebulization treatment with Xopenex, ipratropium every 6 hours, Pulmicort twice daily along with scopolamine patch. We were also tried with chest vest every 6 hours. Full code N.p.o. Famotidine for PUD prophylaxis Heparin 5000 every 12 hourly for DVT prophylaxis Thank you for involving us in care of Mr. Espinosa. Please call with any questions when needed. Consult Attestations Medical Necessity Statement: Patient requires transfer to tertiary center where pulmonary or CT surgery services are available for need of bronchoscopy given high concerns for mucous plugging in setting of right lower lobe pneumonia in a patient with baseline ALS who is unable to clear his secretions Diagnoses Acute and chronic respiratory failure J96.20 Pneumonia J18.9 Amyotrophic lateral sclerosis (ALS) G12.21 S/P fecal transplant Z92.89 Sepsis A41.9
[2024-03-24 16:23] LABS: Reflex Lactate Order REFLEX LACTIC ORDERD
[2024-03-24] MEDS: ipratropium 0.5 mg/2.5 mL Neb INHALATION (16:47)
[2024-03-24] MEDS: levalbuterol 0.63 mg/3 mL Neb INHALATION (16:47)
[2024-03-24 17:01] LABS: Procalcitonin 0.16 ng/mL (0-0.5)
[2024-03-24 17:04] LABS: Adenovirus Not Detected (NOT DETECT); Chlamydia Pneumoniae Not Detected (NOT DETECT); Coronavirus 229E,HKU1,NL63,OC4 Not Detected (NOT DETECT); Human Metapneumovirus Not Detected (NOT DETECT); Human Rhinovirus/Enterovirus Not Detected (NOT DETECT); Influenza A Not Detected (NOT DETECT); Influenza A H1 Not Detected (NOT DETECT); Influenza A H1-2009 Not Detected (NOT DETECT); Influenza A H3 Not Detected (NOT DETECT); Influenza B Not Detected (NOT DETECT); Mycoplasma Pneumoniae Not Detected (NOT DETECT); Parainfluenza Virus Type 1 Not Detected (NOT DETECT); Parainfluenza Virus Type 2 Not Detected (NOT DETECT); Parainfluenza Virus Type 3 Not Detected (NOT DETECT); Parainfluenza Virus Type 4 Not Detected (NOT DETECT); Respiratory Syncytial Virus A Not Detected (NOT DETECT); Respiratory Syncytial Virus B Not Detected (NOT DETECT); SARS-COV-2 Not Detected (NOT DETECT)
== END 2024-03-24 21:21 | disposition short-term general hospital (02) ==
PROVIDERS: Student in an Organized Health Care Education/Training Program; Emergency Provider Emergency Medicine; PCP Nurse Practitioner
DX: J18.9 Pneumonia, unspecified organism (principal); J96.10 Chronic respiratory failure, unspecified whether with hypoxia or hypercapnia; A41.9 Sepsis, unspecified organism; G12.21 Amyotrophic lateral sclerosis
CPT/HCPCS: 0241U; 36415; 71045; 80053; 83605; 84145; 85025; 86140; 87040; 87486; 87581; 87633; 94640; 96365; 96375; 99285; J2020; J2185; J2919; J7040; J7614; J7644

== ENCOUNTER 2024-04-08 12:02 | Outpatient (CLI) | payer OTHER, SELFPAY ==
--- NOTE | 2024-04-08 12:05 | XRR_ITS ---
PROCEDURE INFORMATION: Exam: XR Chest Exam date and time: 04/08/2024 12:10 PM Age: 53 years old Clinical indication: Wheezing; Prior surgery; Surgery date: 1-6 months; Surgery type: Bronchoscopy; Additional info: J18.9 - pneumonia, unspecified organism TECHNIQUE: Imaging protocol: Radiologic exam of the chest. Views: 2 views. COMPARISON: CR (CHEST, ) 03/24/2024 2:42 PM FINDINGS: Lungs: Decreased patchy right lower lobe opacification. Left lung is clear. Pleural spaces: Unremarkable. No pleural effusion. No pneumothorax. Heart/Mediastinum: Unremarkable. No cardiomegaly. Bones/joints: Unremarkable. XR/XR chest 2V* [id number] IMPRESSION: Improved right lower lobe airspace opacification. Continued follow-up to resolution recommended.
[2024-04-08 12:39] LABS: Basophils # 0.1 10^3/uL (0.0-0.1); Basophils % 0.5 %; Eosinophils # 0.2 10^3/uL (0.0-0.8); Eosinophils % 1.5 %; Hematocrit 40.6 % (37-53); Lymphocytes # 1.4 10^3/uL (0.8-4.8); Lymphocytes % 14.1 %; Mean Corpuscular Hemoglobin 28.6 pg (27-33); Mean Corpuscular Volume 95.1 fl (82-101); Mean Platelet Volume 9.9 fL (7.4-10.4); Monocytes # 0.6 10^3/uL (0.2-0.9); Monocytes % 6.4 %; Neutrophils # 7.52 10^3/uL (1.8-7.7); Neutrophils % 77.2 %; Nucleated Red Blood Cells % 0 %; Platelet Count 636 10^3/cmm (157-399); Red Blood Count 4.27 10^6/uL (3.85-5.65); Red Cell Distribution Width 15.9 % (12.1-15.1); White Blood Count 9.74 10^3/uL (3.29-11.43)
[2024-04-08 13:02] LABS: Alanine Aminotransferase 16 U/L (0-41); Albumin Level 3.9 g/dL (3.5-5.2); Alkaline Phosphatase 93 U/L (40-130); Anion Gap 17.5 (5-19); Aspartate Amino Transferase 24 U/L (0-40); Blood Urea Nitrogen 15 mg/dL (6-20); Calcium 9.5 mg/dL (8.5-10.5); Carbon Dioxide 28 mmol/L (22-29); Chloride 98 mmol/L (98-107); Globulin 4.3 g/dL (1.3-4.6); Glomerular Filtration Rate 500.7 mL/min (90-130); Glucose 158 mg/dL (65-115); Osmolality Calculated 292 mOsm/kg (285-295); Potassium 4.5 mmol/L (3.5-5.1); Sodium 139 mmol/L (136-145); Total Bilirubin 0.2 mg/dL (0.15-1.2); Total Protein 8.2 g/dL (6.6-8.7)
== END 2024-04-08 12:03 | disposition home or self-care (01) ==
LOC: LAB 12:04
PROVIDERS: PCP Nurse Practitioner; Visit Provider Student in an Organized Health Care Education/Training Program
DX: J18.9 Pneumonia, unspecified organism (principal)
CPT/HCPCS: 36415; 71046; 80053; 85025

== ENCOUNTER 2024-04-22 16:45 | Outpatient (CLI) | payer OTHER, SELFPAY ==
[2024-04-22 17:56] LABS: C.Diff PCR (Lab) NEGATIVE (Negative)
== END 2024-04-22 16:46 | disposition home or self-care (01) ==
LOC: LAB 16:46
PROVIDERS: PCP Nurse Practitioner; Visit Provider Student in an Organized Health Care Education/Training Program
DX: R19.7 Diarrhea, unspecified (principal)
CPT/HCPCS: 87493

== ENCOUNTER 2024-05-11 13:58 | Inpatient (IN) | payer OTHER, SELFPAY ==
[2024-05-11] VITALS (19 sets, daily range): BP systolic 82–124; BP diastolic 53–79; PULSE 78–132; RESP 18–38; TEMP 37.6–37.7; O2SAT 84–100; BMI 16.2
--- NOTE | 2024-05-11 14:28 | XRR_ITS ---
PROCEDURE INFORMATION: Exam: XR Chest Exam date and time: 05/11/2024 2:47 PM Age: 53 years old Clinical indication: Patient HX: Dyspnea; Cough; HX pneumonia TECHNIQUE: Imaging protocol: Radiologic exam of the chest. Views: 1 view. COMPARISON: CR XR chest 2V* [id number] 04/08/2024 12:10 PM FINDINGS: Lungs: Patchy right lung infiltrates appear similar to the prior study. Pleural spaces: The right costophrenic angle is obscured and a pleural effusion is not optimally evaluated for. Heart/Mediastinum: Unremarkable. No cardiomegaly. Bones/joints: Unremarkable. XR/XR chest 1V portable [id number] IMPRESSION: Patchy right lung infiltrates appear similar to the prior study and may represent residual pneumonia or scar tissue.
--- NOTE | 2024-05-11 14:54 | ED_ITS ---
HPI - Weakness 2 General: Chief complaint: Weakness Stated complaint: Weakness Time Seen by Provider: 05/11/24 14:26 History of Present Illness: 53-year-old male with a history of ALS. Patient has had recurrent aspiration pneumonias is also dependent on BiPAP. Recently was transferred from our facility because of pulmonology. He also has had problems with recurrent C. difficile because he needed to be on antibiotics so frequently. A few months ago he had a fecal transplant which seems to have significantly helped and he has not had any recurrent episodes since. is concerned he may have a recurrence now because of being on extended course of antibiotics last month for a pneumonia. Did have some diarrhea this morning but no hematochezia. He has been increasingly weak as well. He had a chest x-ray earlier this week and there was concern of a possible recurrence of pneumonia. Associated symptoms: Denies chest pain, chills, dysuria or fever(s) Review of Systems 2 Const: Denies: fever(s) or chills Card: Denies: chest pain Resp: Reports: dyspnea (Chronic) GI: Reports: diarrhea (Chronic slightly worse today); Denies: abdominal pain : Denies: dysuria, urinary frequency or urinary urgency Musc: Denies: neck pain or back pain Skin/Breast: Denies: rash PFSH ED 2 PFSH: Medical History S/P fecal transplant D-dimer, elevated Multiple tracheobronchial mucus plugs Weak cough At risk for aspiration Left lower lobe consolidation Recurrent pneumonia SI (sacroiliac) pain Anemia of chronic disease Depression Peripheral neuropathy Recurrent Clostridioides difficile diarrhea Fracture of femoral neck, right Chronic, nondisplaced, for non operative management to date, follows with [facility] Small bowel obstruction 06/08 C. difficile enteritis Ulcerative (chronic) enterocolitis ALS (amyotrophic lateral sclerosis) Diagnosed in 2019 Surgical History History of oral surgery History of esophageal surgery Family History Denies family history of Diabetes Hypertension Social History Smoking and tobacco/nicotine status: never used tobacco/nicotine Alcohol intake: never Substance/Drug Use: never Physical Exam 2 Const: GENERAL APPEARANCE: cooperative NUTRITIONAL APPEARANCE: cachectic ORIENTATION/CONSCIOUSNESS: Yes awake HENMT: COMMON NORMALS: normocephalic, atraumatic and hearing grossly normal bilaterally HEAD & SCALP: normocephalic and atraumatic Resp: AUSCULTATION: rhonchi and diminished lung sounds Cardio: COMMON NORMALS: regular rate, regular rhythm and No murmurs present (Cardio) RATE: regular rate RHYTHM: regular rhythm GI: COMMON NORMALS: Soft to palpation and No hepatosplenomegaly present A USCULTATION: Yes normoactive bowel sounds PALPATION: Yes Soft to palpation, No Tenderness to palpation present (GI), No Guarding due to palpation present (GI) and Yes No hepatosplenomegaly present Extremity: COMMON NORMALS: normal to inspection, capillary refill normal, no clubbing, cyanosis or edema, no calf tenderness and no pedal edema Skin: COMMON NORMALS: no rashes or lesions noted GENERAL SKIN EXAM: no rashes or lesions noted Course 2 Vital Signs: Vital signs: Vital Signs Temperature 97.8 F 05/13/24 16:00 Pulse Rate 100 05/13/24 16:00 Respiratory Rate 18 05/13/24 16:00 Blood Pressure 100/52 05/13/24 16:00 Pulse Oximetry 97 05/13/24 16:00 Oxygen Delivery Me thod CPAP 05/13/24 16:00 Fraction of Inspir ed Oxygen 21 05/13/24 02:35 MDM - Weakness Medical Decision Making Worsening right lower lobe and right middle pneumonia. Discussed with Dr. Keene she was kind enough to give input she is very familiar with this patient he has not ever had Pseudomonas she does not recommend double Pseudomonas coverage at this time because he has had so much trouble with C. difficile in the past actually required a fecal transplant. Will admit the patient to the inpatient services for pneumonia. Started on IV antibiotics and to give prophylaxis oral vancomycin for C. difficile per 's recommendation. Discussed with hospitalist orders written Medical Records I reviewed the patient's medical records. Lab Data I reviewed the patient's lab results. 05/13/24 05:37 05/13/24 05:37 Radiology Impressions Chest X-Ray 05/11/24 14:28 IMPRESSION: Patchy right lung infiltrates appear similar to the prior study and may represent residual pneumonia or scar tissue. Chest CTA 05/11/24 15:33 IMPRESSION: Bilateral pneumonia worsened in the right middle lobe when compared to the prior CT scan. Laboratory Results WBC 32.67 10^3/uL (3.29-11.43) H* 05/11/24 15:00 RBC 4.61 10^6/uL (3.85-5.65) 05/11/24 15:00 Hgb 13.20 g/dL (11.27-16.99) 05/11/24 15:00 Hct 42.8 % (37-53) 05/11/24 15:00 MCV 92.8 fl (82-101) 05/11/24 15:00 MCH 28.6 pg (27-33) 05/11/24 15:00 MCHC 30.8 g/dL (30-55) 05/11/24 15:00 RDW 15.7 % (12.1-15.1) H 05/11/24 15:00 Plt Count 514 10^3/cmm (157-399) H 05/11/24 15:00 MPV 10.2 fL (7.4-10.4) 05/11/24 15:00 Neut % (Auto) 94.8 % 05/11/24 15:00 Lymph % (Auto) 0.7 % 05/11/24 15:00 [place] % (Auto) 3.8 % 05/11/24 15:00 Eos % (Auto) 0.0 % 05/11/24 15:00 Baso % (Auto) 0.2 % 05/11/24 15:00 Neut # (Auto) 30.96 10^3/uL (1.8-7.7) H 05/11/24 15:00 Lymph # (Auto) 0.2 10^3/uL (0.8-4.8) L 05/11/24 15:00 [place] # (Auto) 1.2 10^3/uL (0.2-0.9) H 05/11/24 15:00 Eos # (Auto) 0.0 10^3/uL (0.0-0.8) 05/11/24 15:00 Baso # (Auto) 0.1 10^3/uL (0.0-0.1) 05/11/24 15:00 Nucleated RBC % (auto) 0 % 05/11/24 15:00 Nucleated RBCs # 0.0 /100WBC 05/11/24 15:00 Sodium 137 mmol/L (136-145) 05/11/24 15:00 Potassium 3.7 mmol/L (3.5-5.1) 05/11/24 15:00 Chloride 95 mmol/L (98-107) L 05/11/24 15:00 Carbon Dioxide 30 mmol/L (22-29) H 05/11/24 15:00 Anion Gap 15.7 (5-19) 05/11/24 15:00 BUN 10 mg/dL (6-20) 05/11/24 15:00 Creatinine 0.3 mg/dL (0.7-1.2) L 05/11/24 15:00 GFR Calculation 313.6 mL/min (90-130) H 05/11/24 15:00 Glucose 138 mg/dL (65-115) H 05/11/24 15:00 Calculated Osmolality 285 mOsm/kg (285-295) 05/11/24 15:00 Lactic Acid 2.5 mmol/L (0.5-2.2) H 05/11/24 15:00 Calcium 9.4 mg/dL (8.5-10.5) 05/11/24 15:00 Total Bilirubin 0.2 mg/dL (0.15-1.2) 05/11/24 15:00 AST 20 U/L (0-40) 05/11/24 15:00 ALT 19 U/L (0-41) 05/11/24 15:00 Alkaline Phosphatase 92 U/L (40-130) 05/11/24 15:00 Total Protein 7.8 g/dL (6.6-8.7) 05/11/24 15:00 Albumin 4.1 g/dL (3.5-5.2) 05/11/24 15:00 Globulin 3.7 g/dL (1.3-4.6) 05/11/24 15:00 Coronavirus (PCR) Negative (Negative) 05/11/24 14:56 Influenza A (PCR) Negative (Negative) 05/11/24 14:56 Influenza Type B (PCR) Negative (Negative) 05/11/24 14:56 RSV (PCR) Negative (Negative) 05/11/24 14:56 All radiology interpretation(s) finalized by discharge Discharge Plan Discharge Patient Disposition: Admitted As Inpatient Admit Provider: Isaías Abbott Clinical Impression: Pneumonia, Sepsis, Acute and chronic respiratory failure, ALS (amyotrophic lateral sclerosis) Condition: Stable Coding Level of Care Code ED Grinder Machine Setter for Chg Fwd Related Data Home Medications Medication Instructions Recorded Confirmed sertraline 20 mg/mL oral 50 mg feeding tube BEDTIME 05/16/23 05/12/24 concentrate (Zoloft) cetirizine 1 mg/mL oral solution 10 mg PO BEDTIME 10/16/23 05/12/24 famotidine 40 mg/5 mL (8 mg/mL) 20 mg PO BID 12/13/23 05/12/24 oral suspension gabapentin 250 mg/5 mL oral 500 mg PO BEDTIME 12/13/23 05/12/24 solution acetaminophen 500 mg/15 mL oral 1,000 mg feeding tube Q4-5H PRN 01/08/24 05/12/24 liquid Fever guaifenesin 100 mg/5 mL oral 600 mg PO BID 01/08/24 05/12/24 liquid (Jing-Tussin) nortriptyline 10 mg/5 mL oral 30 mg feeding tube BEDTIME 01/08/24 05/12/24 solution riluzole 50 mg tablet 50 mg PO BID 01/08/24 05/12/24 scopolamine base 1 mg over 3 days 0.5 patch transdermal Q2D 01/08/24 05/12/24 transdermal patch Chlorpheniramine Allergy 4 mg peg-tube DAILY 05/12/24 05/12/24 Singulair 10 mg peg-tube DAILY 05/12/24 05/12/24 Previous Rx's Medication Instructions Recorded vancomycin 50 mg/mL oral solution 125 mg (2.5 mL) PO DAILY PRN c 02/22/24 diff 7 days #80 mL Allergies Allergy/AdvReac Type Severity Reaction Status Date / Time No Known Allergies Allergy Verified 02/13/24 12:35
[2024-05-11 15:12] LABS: Basophils # 0.1 10^3/uL (0.0-0.1); Basophils % 0.2 %; Hematocrit 42.8 % (37-53); Lymphocytes # 0.2 10^3/uL (0.8-4.8); Lymphocytes % 0.7 %; Mean Corpuscular HGB Conc 30.8 g/dL (30-55); Mean Corpuscular Hemoglobin 28.6 pg (27-33); Mean Corpuscular Volume 92.8 fl (82-101); Mean Platelet Volume 10.2 fL (7.4-10.4); Monocytes # 1.2 10^3/uL (0.2-0.9); Monocytes % 3.8 %; Neutrophils # 30.96 10^3/uL (1.8-7.7); Neutrophils % 94.8 %; Nucleated Red Blood Cells % 0 %; Platelet Count 514 10^3/cmm (157-399); Red Blood Count 4.61 10^6/uL (3.85-5.65); Red Cell Distribution Width 15.7 % (12.1-15.1)
[2024-05-11 15:17] LABS: White Blood Count 32.67 10^3/uL (3.29-11.43)
--- NOTE | 2024-05-11 15:20 | ECG_ITS ---
[facility] Test Date: 2024-05-11 Pat Name: Silvestre Espinosa Department: Room: Gender: Male Cardiology Nurse Practitioner: : 1970 Requested By: Efraín Gramajo Order Number: [id number] Elza MD: Maikel Cardoza M.D. Measurements Intervals [place] Rate: 137 P: 81 [place]: 142 QRS: 88 QRSD: 83 T: 75 QT: 322 QTc: 488 Interpretive Statements SINUS TACHYCARDIA POSSIBLE RIGHT VENTRICULAR CONDUCTION DELAY [RSR (QR) IN V1/V2] NONSPECIFIC T-WAVE ABNORMALITY ABNORMAL RHYTHM ECG Compared to ECG 05/21/2023 16:56:21 T-wave abnormality now present Electronically Signed On 05-13-2024 00:07:31 CDT by Maikel Cardoza M.D. [email or web address]
[2024-05-11 15:33] LABS: Alanine Aminotransferase 19 U/L (0-41); Albumin Level 4.1 g/dL (3.5-5.2); Alkaline Phosphatase 92 U/L (40-130); Anion Gap 15.7 (5-19); Aspartate Amino Transferase 20 U/L (0-40); Blood Urea Nitrogen 10 mg/dL (6-20); Calcium 9.4 mg/dL (8.5-10.5); Carbon Dioxide 30 mmol/L (22-29); Chloride 95 mmol/L (98-107); Globulin 3.7 g/dL (1.3-4.6); Glomerular Filtration Rate 313.6 mL/min (90-130); Glucose 138 mg/dL (65-115); Lactic Sepsis W/Reflex 2.5 mmol/L (0.5-2.2); Osmolality Calculated 285 mOsm/kg (285-295); Potassium 3.7 mmol/L (3.5-5.1); Sodium 137 mmol/L (136-145); Total Bilirubin 0.2 mg/dL (0.15-1.2); Total Protein 7.8 g/dL (6.6-8.7)
--- NOTE | 2024-05-11 15:33 | CTR_ITS ---
PROCEDURE INFORMATION: Exam: CTA Chest With Contrast Exam date and time: 05/11/2024 4:02 PM Age: 53 years old Clinical indication: Dyspnea and hyperventilation; Additional info: Hypoxia dyspnea, acute respiratory failure tachycardia TECHNIQUE: Imaging protocol: Computed tomographic angiography of the chest with contrast. Exam focused on the arteries. 3D rendering (Not supervised by radiologist): MIP and/or 3D reconstructed images were created by the technologist. Radiation optimization: All CT scans at this facility use at least one of these dose optimization techniques: automated exposure control; mA and/or kV adjustment per patient size (includes targeted exams where dose is matched to clinical indication); or iterative reconstruction. Contrast material: OMNIPAQUE 350; Contrast volume: 65 ml; Contrast route: INTRAVENOUS (IV); COMPARISON: CT angio chest PE protcl [id number] 01/09/2024 2:15 PM RADIATION DOSE METRICS: Total DLP (mGy-cm): 192.34 FINDINGS: Pulmonary arteries: Normal. No pulmonary emboli. Aorta: Unremarkable. No aortic aneurysm. No aortic dissection. Lungs: Scarring at the lung apices appear similar to the prior study. Multifocal patchy bilateral pulmonary infiltrates involving the right lower lobe, right middle lobe, and left upper/lower lobes. Findings have worsened in the right middle lobe when compared to the prior CT scan. Pleural spaces: Unremarkable. No pneumothorax. No pleural effusion. Heart: Unremarkable. No cardiomegaly. No pericardial effusion. Lymph nodes: Unremarkable. No enlarged lymph nodes. Bones/joints: Unremarkable. No acute fracture. Soft tissues: Unremarkable. CT/CT angio chest PE protcl [id number] IMPRESSION: Bilateral pneumonia worsened in the right middle lobe when compared to the prior CT scan.
[2024-05-11 15:45] LABS: Covid PCR NEGATIVE (Negative); Influenza A NEGATIVE (Negative); Influenza B NEGATIVE (Negative); Respiratory Syncytial Virus Ce NEGATIVE (Negative)
[2024-05-11] MEDS: iohexol 350 mg/mL 500 mL Btl (per mL) IV (16:08)
--- NOTE | 2024-05-11 16:51 | PC.NURSE ---
pt antibiotics and fluids delayed d/t needing IV access
[2024-05-11 16:54] LABS: Reflex Lactate Order REFLEX LACTIC ORDERD
[2024-05-11] MEDS: sodium chloride 0.9% 1,496.85 ML 1496.85 ML IV (17:01)
[2024-05-11] MEDS: piperacillin-tazobactam 3.375 GM in sodium chloride 0.9% (plus) 50 ML IV (17:01)
[2024-05-11 17:50] LABS: Bilirubin Urine Negative (Negative); Blood Urine Negative (Negative); Glucose Urine UA Negative (Normal); Ketones Urine Negative (Negative); Leukocyte Esterase Urine Negative (Negative); Nitrate Urine Negative (Negative); Protein Urine Trace (Negative); Urine Appearance Clear (CLEAR); Urine Color Dark Yellow (Yellow)
[2024-05-11 17:52] LABS: Specific Gravity, Urine 1.095 (1.005-1.030)
[2024-05-11 17:56] LABS: Add Urine Microscopic? YES; Bacteria Urine TRACE /hpf; Mucus Urine TRACE /hpf; UA Manual Slide Review YES
[2024-05-11 17:57] LABS: Amorphous Sediment Urine TRACE /hpf; Hyaline Casts Urine 0-4 /lpf
[2024-05-11] MEDS: linezolid premix 600 MG/300 ML PREMIX 300 MG IV (18:07)
--- NOTE | 2024-05-11 18:08 | PC.NURSE ---
this nurse contacted pharmacy d/t needing Vancomycin tab switched to liquid. Dr. Abbott aware.
--- NOTE | 2024-05-11 18:15 | P.HP_ITS ---
Providers/Chief Complaint 2 Admitting Physician: Isaías Abbott Primary Care Provider: MORENO Ferrara Chief Complaint: Weakness History of Present Illness Silvestre Espinosa is a 53 year old male Review of Systems 2 Const: Reports: chills and malaise; Denies: fever(s) or body aches Card: Denies: chest pain, edema or pre-syncope Resp: Denies: dyspnea, productive cough, change in phlegm color or hemoptysis GI: Reports: diarrhea (Chronic); Denies: abdominal pain, nausea, vomiting, constipation, hematochezia or melena : Denies: hematuria Musc: Denies: back pain, joint swelling or joint redness Skin/Breast: Denies: rash or new lesions Neuro: Reports: weakness in extremities Medications/Allergies Home Medications Medication Instructions Recorded Confirmed Last Taken Type vedolizumab 300 mg intravenous 300 mg IV DIRECTED 04/24/20 02/13/24 11/14/23 History solution (Entyvio) sertraline 20 mg/mL oral 50 mg feeding tube BEDTIME 05/16/23 02/13/24 01/07/24 21:00 History concentrate (Zoloft) cetirizine 1 mg/mL oral solution 10 mg PO BEDTIME 10/16/23 02/13/24 01/07/24 21:00 History famotidine 40 mg/5 mL (8 mg/mL) 20 mg PO BEDTIME 12/13/23 02/13/24 01/07/24 21:00 History oral suspension gabapentin 250 mg/5 mL oral 500 mg PO BEDTIME 12/13/23 02/13/24 01/07/24 21:00 History solution vancomycin 50 mg/mL oral solution 125 mg (2.5 mL) PO .every other 01/05/24 02/13/24 Unknown Rx day 2 months #80 mL vancomycin 50 mg/mL oral solution 125 mg (2.5 mL) PO BID 7 days #35 01/05/24 02/13/24 01/08/24 09:00 Rx mL acetaminophen 500 mg/15 mL oral 1,000 mg feeding tube Q4-5H PRN 01/08/24 02/13/24 01/08/24 15:00 History liquid Fever fidaxomicin 200 mg tablet (Dificid) 200 mg feeding tube BID PRN c diff 01/08/24 02/13/24 01/02/24 History guaifenesin 100 mg/5 mL oral 600 mg PO BID 01/08/24 02/13/24 01/08/24 09:00 History liquid (Jing-Tussin) nortriptyline 10 mg/5 mL oral 30 mg feeding tube BEDTIME 01/08/24 02/13/24 01/07/24 21:00 History solution riluzole 50 mg tablet 50 mg PO BID 01/08/24 02/13/24 01/08/24 17:00 History scopolamine base 1 mg over 3 days 0.5 patch transdermal Q2D 01/08/24 02/13/24 01/08/24 09:00 History transdermal patch cefdinir 300 mg capsule 300 mg PO BID PRN pneumonia 5 days 02/22/24 Unknown Rx #10 caps vancomycin 50 mg/mL oral solution 125 mg (2.5 mL) PO DAILY PRN c 02/22/24 Unknown Rx diff 7 days #80 mL linezolid 100 mg/5 mL oral 600 mg (30 mL) PO BID 5 days #300 03/29/24 Unknown Rx suspension mL linezolid 600 mg tablet 600 mg PO BID 5 days #10 tabs 04/08/24 Unknown Rx Allergies Allergy/AdvReac Type Severity Reaction Status Date / Time No Known Allergies Allergy Verified 02/13/24 12:35 PFSH Acute 2 PFSH: Medical History S/P fecal transplant D-dimer, elevated Multiple tracheobronchial mucus plugs Weak cough At risk for aspiration Left lower lobe consolidation Recurrent pneumonia SI (sacroiliac) pain Anemia of chronic disease Depression Peripheral neuropathy Recurrent Clostridioides difficile diarrhea Fracture of femoral neck, right Chronic, nondisplaced, for non operative management to date, follows with [facility] Small bowel obstruction 06/08 C. difficile enteritis Ulcerative (chronic) enterocolitis ALS (amyotrophic lateral sclerosis) Diagnosed in 2019 Surgical History History of oral surgery History of esophageal surgery Family History Denies family history of Diabetes Hypertension Social History Smoking and tobacco/nicotine status: never used tobacco/nicotine Alcohol intake: never Substance/Drug Use: never Vitals/I&O/Wt Last Vital Signs Temp 99.7 F H 05/11/24 14:18 Pulse 111 H 05/11/24 18:10 BP 82/54 05/11/24 18:10 Pulse Ox 100 05/11/24 17:09 05/11/24 05/11/24 05/11/24 06:59 14:59 22:59 Intake Total 1546.85 / 1546.85 Balance 1546.85 / 1546.85 Weight last 48 hrs Weight 49.895 kg Physical Exam 2 Narrative: Sarcopenia, weak. CPAP with nasal pillows. Const: COMMON NORMALS: patient oriented x3 and alert GENERAL APPEARANCE: c ooperative ORIENTATION/CONSCIOUSNESS: Yes awake HENMT: COMMON NORMALS: oropharynx normal Neck/C-Spine: COMMON NORMALS: no JVD Resp: COMMON NORMALS: normal respiratory effort and clear to auscultation bilaterally AUSCULTATION: clear to auscultation bilaterally OTHER: Minimally coarse breath sounds right lung. Cardio: COMMON NORMALS: no JVD, regular rhythm, S1 normal heart sound present, S2 normal heart sound present and No murmurs present (Cardio) RHYTHM: regular rhythm HEART SOUNDS: S1 normal heart sound present and S2 normal heart sound present GI: COMMON NORMALS: Normal to inspection, nondistended, normoactive bowel sounds present, Soft to palpation and non-tender PALPATION: Yes Soft to palpation Extremity: COMMON NORMALS: no joint enlargement and no pedal edema Neuro: COMMON NORMALS: patient oriented x3 and moves all extremities S ENSORIUM/ORIENTATION: Yes alert Skin: COMMON NORMALS: no rashes or lesions noted GENERAL SKIN EXAM: no rashes or lesions noted Sepsis: Is patient septic: Yes Focused sepsis exam performed: Yes F ocused sepsis exam: He is awake and alert, keenly responsive. No mottling, no cyanosis. Good capillary refill. Date exam was performed: 05/11/24 Time exam was performed: 18:30 Data 05/11/24 15:00 05/11/24 15:00 Micro: Microbiology 05/11/24 15:03 Blood Culture - Preliminary Blood SPECIMEN COLLECTED 05/11/24 15:00 Blood Culture - Preliminary Blood SPECIMEN COLLECTED A&P Assessment and plan (1) C. difficile colitis: Severe C. difficile colitis. Reviewed vitals, CBC, CMP, UA, C. difficile PCR, positive. Reviewed ED provider note, discussed with ED provider, discussed with his infectious ease provider as well as with family his . Transition to 125 mg vancomycin liquid by bag 4 times daily. Received fluid resuscitation 30 cc/kg in ER. Currently hypovolemic, possibly septic shock, MAP 67 mmHg despite 30 cc/kg resuscitation. Will give additional bolus 250 mL given high suspicion for hypovolemia, continue IV hydration, he does have chronic diarrhea secondary to tube feeds, but has been more liquid recently, he is hypotensive, although not yet in shock, but is likely hypovolemic. Levophed is added to maintain MAP above 65 mmHg, but would focus on additional hydration if needed in the setting of C. difficile. Noted lactic acid 2.5 on presentation. Reviewed repeat down to 2. Monitor intake and output. (2) Pneumonia: Sepsis noted with tachycardia 111, WBC 32.67, temp 99.7, has not had a fever, has had some chills. Blood pressure low 82/54 despite 30 cc/kg fluid resuscitation. Will give additional bolus 250 likely given hypovolemia with severe C. difficile, admission to ICU. Additionally bilateral but worse right middle lobe pneumonia noted on CT. No mucous plugging this time, somewhat atypical presentation for him in terms of pneumonia, additionally as discussed with him and his possible component of chemical pneumonitis with aspiration, oral secretions, he also gets reflux, possibly early pneumonia. As per discussion antibiotic coverage to be continued currently with Zosyn and linezolid. Monitor oxygenation. Continue expectorant therapy, Mucinex, will give Xopenex nebs, twice daily chest vest therapy. Continue aspiration precautions, n.p.o. PPI prophylaxis, VTE prophylaxis. Blood culture has been collected, follow-up. Collect sputum culture if able to provide. Qualifiers: Laterality: left Lung location: lower lobe of lung Pneumonia type: due to unspecified organism Qualified Code(s): J18.9 - Pneumonia, unspecified organism Plan ALS: Continue CPAP. Has been more CPAP dependent. Possible progression of ALS. Continue NPO. Tube feeds will be brought in by his and we will restart him on the home regimen usually gets to bolus feeds a day. Reposition to avoid decubiti. Resume his home medications once we have them confirmed. History of recurrent aspiration pneumonia, mucous plugging. No mucous plugging noted currently on CT. Continue NPO. Aspiration precautions. Mucinex. Xopenex, ipratropium, antihistamine. Continue oral hygiene. He brushes his teeth and uses mouthwash. Continue chest vest 3 times daily. Goals of care discussion: At current time in case of deterioration he would still be okay with intubation, mechanical ventilatory support, ideally he would not want to be ventilator dependent although he understands that it is difficult to determine ability to wean ahead of time, however, we may predict there may be difficulties given his overall condition which he understands, at that point if he may come to consideration of extubation trial versus consideration of tracheostomy which he understands. He reserves the right to change his mind about things down the road. Requesting to confirm home medications. Attestations 2 Medical Necessity Statement*: Admission over 2 midnights anticipated for assessment of management of sepsis, severe C. difficile colitis, pneumonia and a gentleman with history of recurrent aspiration pneumonia with underlying ALS. Coding Level of Care Code Critical Care >/= 30 minutes Critical care time (in minutes): 35 The high probability of a clinically significant, sudden or life threatening deterioration, as referenced in this documentation, required my full and direct attention, intervention and personal management. The critical care time shown is in addition to time spent performing any reported separately billable procedures and includes the following: [x] Data and vital sign review and interpretation [x ] Patient assessment, examination and intervention [x] Medication orders and management [x] Patient/Family updates as able [x] Care Coordination and Documentation. Diagnoses C. difficile colitis A04.72 Pneumonia J18.9 Laterality: left Lung location: lower lobe of lung Pneumonia type: due to unspecified organism
--- NOTE | 2024-05-11 18:38 | PC.NURSE ---
this nurse attempted to contact pharmacy d/t needing Vancomycin tab switched to liquid. Dr. Abbott aware of need to switch medication.
[2024-05-11 18:42] LABS: C.Diff PCR (Lab) POSITIVE (Negative)
[2024-05-11 19:09] LABS: Clostridioides Difficile Toxin POSITIVE (Negative)
[2024-05-11] MEDS: ondansetron 2 mg/ML SDV 2 mL 4 MG IVP (20:00)
[2024-05-11] MEDS: guaiFENesin 100 mg/5 mL UDC 10 mL 600 MG PEG-TUBE ×2 (20:01→20:16)
[2024-05-11] MEDS: pantoprazole 40 mg SDV IVP (20:01)
[2024-05-11] MEDS: enoxaparin 30 mg/0.3 mL Syringe SUBCUT (20:01)
[2024-05-11] MEDS: sodium chloride 0.9% 250 ML IV (20:09)
[2024-05-11] MEDS: sodium chloride 0.9% 1,000 ML 100 ML IV (20:24)
[2024-05-11] MEDS: levalbuterol 0.63 mg/3 mL Neb INHALATION (21:50)
[2024-05-11] MEDS: vancomycin 1,000 MG SDV 125 MG PO (23:16)
[2024-05-11] MEDS: water for injection-sterile SDV 10 mL XX (23:17)
[2024-05-12] VITALS (27 sets, daily range): BP systolic 84–136; BP diastolic 57–94; PULSE 83–127; RESP 18–37; TEMP 36.3–36.9; O2SAT 90–99
[2024-05-12] MEDS: levalbuterol 0.63 mg/3 mL Neb INHALATION ×4 (02:19→22:18)
[2024-05-12] MEDS: piperacillin-tazobactam 3.375 GM in sodium chloride 0.9% (plus) 50 ML IV ×3 (03:01→20:11)
[2024-05-12 05:21] LABS: Basophils # 0.1 10^3/uL (0.0-0.1); Basophils % 0.3 %; Eosinophils # 0.1 10^3/uL (0.0-0.8); Eosinophils % 0.3 %; Hematocrit 39.8 % (37-53); Lymphocytes # 1.2 10^3/uL (0.8-4.8); Lymphocytes % 4.2 %; Mean Corpuscular HGB Conc 29.9 g/dL (30-55); Mean Corpuscular Hemoglobin 28.5 pg (27-33); Mean Corpuscular Volume 95.2 fl (82-101); Mean Platelet Volume 10.5 fL (7.4-10.4); Monocytes % 3.5 %; Neutrophils # 24.73 10^3/uL (1.8-7.7); Neutrophils % 91.3 %; Nucleated Red Blood Cells % 0 %; Platelet Count 511 10^3/cmm (157-399); Red Blood Count 4.18 10^6/uL (3.85-5.65); Red Cell Distribution Width 15.8 % (12.1-15.1); White Blood Count 27.09 10^3/uL (3.29-11.43)
[2024-05-12 05:34] LABS: Alanine Aminotransferase 16 U/L (0-41); Albumin Level 3.5 g/dL (3.5-5.2); Alkaline Phosphatase 81 U/L (40-130); Aspartate Amino Transferase 18 U/L (0-40); Blood Urea Nitrogen 7 mg/dL (6-20); Calcium 8.3 mg/dL (8.5-10.5); Carbon Dioxide 25 mmol/L (22-29); Chloride 102 mmol/L (98-107); Creatinine Clr Calc Pharmacy 203.4028; Globulin 3.6 g/dL (1.3-4.6); Glomerular Filtration Rate 313.6 mL/min (90-130); Glucose 142 mg/dL (65-115); Magnesium 1.6 mg/dL (1.7-2.3); Osmolality Calculated 284 mOsm/kg (285-295); Phosphorus 2.5 mg/dL (2.5-4.5); Sodium 137 mmol/L (136-145); Total Bilirubin 0.2 mg/dL (0.15-1.2); Total Protein 7.1 g/dL (6.6-8.7)
[2024-05-12] MEDS: linezolid premix 600 MG/300 ML PREMIX 300 MG IV ×2 (05:54→18:32)
[2024-05-12] MEDS: vancomycin 100 mg/1 mL Oral Syringe 125 MG PO ×2 (08:36→14:25)
[2024-05-12] MEDS: guaiFENesin 100 mg/5 mL UDC 10 mL 600 MG PEG-TUBE (08:36)
[2024-05-12] MEDS: scopolamine 1.5 Patch 0.5 PATCH TRANSDERMA (11:25)
--- NOTE | 2024-05-12 11:27 | PC.NURSE ---
giving home meds and home tube feedings. MD nazario. educated on notifying nurse of medications and tube feedings administered.
[2024-05-12] MEDS: sodium chloride 0.9% 1,000 ML 100 ML IV ×2 (11:46→18:32)
[2024-05-12] MEDS: SINGULAIR 10 MG 10 EACH PEG-TUBE (14:25)
[2024-05-12] MEDS: [UNRECOGNIZED DRUG - REMARK] 4 EACH PEG-TUBE (14:25)
[2024-05-12] MEDS: GUAIFENESIN 100 MG/5 ML 30 EACH PEG-TUBE ×2 (16:23→20:09)
--- NOTE | 2024-05-12 16:44 | PC.NURSE ---
called and notified of transfer orders to room 260. says she will be back in 30 minutes.
--- NOTE | 2024-05-12 16:58 | PC.NURSE ---
Report called to Sylvia MCCLELALN. No further questions.
[2024-05-12] MEDS: fidaxomicin 200 mg Tablet XX (18:31)
[2024-05-12] MEDS: RILUZOLE 50 MG 50 EACH PEG-TUBE (18:33)
--- NOTE | 2024-05-12 19:53 | P.PN_ITS ---
Subjective 2 Subjective: Gestures that he is doing so-so . He is reportedly having nasal discharge today, which is bothering him, and having to take of his CPAP loses his PEEP. Vitals/I&O/Wt Last Vital Signs Temp 97.3 F L 05/12/24 16:00 Pulse 99 05/12/24 16:00 Resp 25 H 05/12/24 16:00 BP 91/61 05/12/24 16:00 Pulse Ox 95 05/12/24 16:00 O2 Del Method CPAP 05/12/24 17:00 FiO2 21 05/12/24 14:50 05/12/24 05/12/24 05/12/24 06:59 14:59 22:59 Intake Total 1000 / 2546.85 1070 / 1070 676.667 / 1746.667 Output Total 400 / 400 200 / 200 Balance 600 / 2146.85 870 / 870 676.667 / 1546.667 Weight last 48 hrs Weight 51 kg Weight 22.226 kg Weight 22.226 kg Weight 50.5 kg Weight 49.895 kg Physical Exam 2 Narrative: Sarcopenia, weak. CPAP with nasal pillows. Const: COMMON NORMALS: patient oriented x3 and alert GENERAL APPEARANCE: c ooperative ORIENTATION/CONSCIOUSNESS: Yes awake HENMT: COMMON NORMALS: oropharynx normal Neck/C-Spine: COMMON NORMALS: no JVD Resp: COMMON NORMALS: normal respiratory effort and clear to auscultation bilaterally AUSCULTATION: clear to auscultation bilaterally OTHER: Minimally coarse breath sounds right lung. Cardio: COMMON NORMALS: no JVD, regular rhythm, S1 normal heart sound present, S2 normal heart sound present and No murmurs present (Cardio) RHYTHM: regular rhythm HEART SOUNDS: S1 normal heart sound present and S2 normal heart sound present GI: COMMON NORMALS: Normal to inspection, nondistended, normoactive bowel sounds present, Soft to palpation and non-tender PALPATION: Yes Soft to palpation Extremity: COMMON NORMALS: no joint enlargement and no pedal edema Neuro: COMMON NORMALS: patient oriented x3 SENSORIUM/ORIENTATION: Yes alert Skin: COMMON NORMALS: no rashes or lesions noted GENERAL SKIN EXAM: no rashes or lesions noted Data 05/12/24 05:00 05/12/24 05:00 Micro: Microbiology 05/11/24 15:03 Blood Culture - Preliminary Blood NEGATIVE TO DATE 05/11/24 15:00 Blood Culture - Preliminary Blood NEGATIVE TO DATE A&P Assessment and plan (1) C. difficile colitis: Blood pressure has responded to IV hydration. Continue IV fluid infusion for now, monitor for risk of fluid overload. Resume tube feeds when available. Reviewed vitals, CBC, CMP. Renal function remains good. Leukocytosis with decreased down to 27. Discussed with pharmacist and fidaxomicin is available in the hospital. Switched to fidaxomicin. Repeat CBC, chemistry. Monitor intake and output. (2) Pneumonia: Having nasal discharge today, having to cough his CPAP to clear his nose, losing his PEEP. Added oxymetazoline, resumed antihistamines. Continue guaifenesin. Increase to 3 times daily as he takes at home. Chest vest therapy. Aspiration precautions. NPO. Reviewed blood culture, so far remaining negative. For now continue Zosyn, linezolid. Qualifiers: Laterality: left Lung location: lower lobe of lung Pneumonia type: due to unspecified organism Qualified Code(s): J18.9 - Pneumonia, unspecified organism Plan ALS: Continue CPAP. Has been more CPAP dependent. Possible progression of ALS. Continue NPO. Tube feeds will be brought in by his to be continued here. Reposition to avoid decubiti. Resume additional home medications. History of recurrent aspiration pneumonia, mucous plugging. No mucous plugging noted currently on CT. Continue NPO. Aspiration precautions. Continue oral hygiene. He brushes his teeth and uses mouthwash. Continue Mucinex, antihistamines, Xopenex, chest vest. Goals of care discussion: At current time in case of deterioration he would still be okay with intubation, mechanical ventilatory support, ideally he would not want to be ventilator dependent although he understands that it is difficult to determine ability to wean ahead of time, however, we may predict there may be difficulties given his overall condition which he understands, at that point if he may come to consideration of extubation trial versus consideration of tracheostomy which he understands. He reserves the right to change his mind about things down the road Attestations 2 Medical Necessity Statement*: Continue admission for assessment and management of sepsis, severe C. difficile colitis, pneumonia in a gentleman with history of recurrent aspiration pneumonia with underlying ALS. and High MDM includes amount and/or complexity of data reviewed/ordered [ resulted lab(s)/test(s), ordered lab(s)/test(s) and other healthcare professional discussion] and described risk of complication, morbidity or mortality of management as documented Diagnoses C. difficile colitis A04.72 Pneumonia J18.9 Laterality: left Lung location: lower lobe of lung Pneumonia type: due to unspecified organism
[2024-05-12] MEDS: enoxaparin 30 mg/0.3 mL Syringe SUBCUT (20:08)
[2024-05-12] MEDS: GABAPENTIN 250 MG/5 ML 500 EACH PEG-TUBE (20:09)
[2024-05-12] MEDS: NORTRIPTYLINE 10 MG/5 ML 30 EACH PEG-TUBE (20:09)
[2024-05-12] MEDS: CETIRIZINE 1 MG/ML 10 EACH PEG-TUBE (20:10)
[2024-05-12] MEDS: SERTRALINE 20 MG/ML 50 EACH FEED TUBE (20:10)
[2024-05-12] MEDS: [UNRECOGNIZED DRUG - OTHER] PEG-TUBE (20:10)
[2024-05-12] MEDS: FAMOTIDINE PEG-TUBE (20:10)
[2024-05-13] VITALS (13 sets, daily range): BP systolic 100–120; BP diastolic 52–76; PULSE 80–109; RESP 18–24; TEMP 36.4–37.1; O2SAT 93–99
--- NOTE | 2024-05-13 00:26 | PC.NURSE ---
requests that patient's feet be elevated with a pillow, to where his heels are not touching the bed. states that patient typically doesn't get pressure injuries on his sacrum, but that he quickly gets them on his heels.
--- NOTE | 2024-05-13 02:32 | PC.NURSE ---
Patient unable to provide sputum sample.
[2024-05-13] MEDS: levalbuterol 0.63 mg/3 mL Neb INHALATION ×4 (02:41→21:09)
[2024-05-13] MEDS: linezolid premix 600 MG/300 ML PREMIX 300 MG IV ×2 (04:20→17:43)
[2024-05-13] MEDS: piperacillin-tazobactam 3.375 GM in sodium chloride 0.9% (plus) 50 ML IV ×3 (04:20→20:07)
[2024-05-13] MEDS: sodium chloride 0.9% 1,000 ML 100 ML IV (04:21)
[2024-05-13 06:00] LABS: Basophils # 0.1 10^3/uL (0.0-0.1); Basophils % 0.4 %; Eosinophils # 0.1 10^3/uL (0.0-0.8); Eosinophils % 0.9 %; Hematocrit 30.1 % (37-53); Lymphocytes # 1.2 10^3/uL (0.8-4.8); Lymphocytes % 10.6 %; Mean Corpuscular HGB Conc 30.6 g/dL (30-55); Mean Corpuscular Hemoglobin 28.7 pg (27-33); Mean Corpuscular Volume 93.8 fl (82-101); Mean Platelet Volume 10.2 fL (7.4-10.4); Monocytes # 0.5 10^3/uL (0.2-0.9); Monocytes % 4.6 %; Neutrophils # 9.52 10^3/uL (1.8-7.7); Neutrophils % 83.2 %; Nucleated Red Blood Cells % 0 %; Platelet Count 359 10^3/cmm (157-399); Red Blood Count 3.21 10^6/uL (3.85-5.65); Red Cell Distribution Width 15.8 % (12.1-15.1); White Blood Count 11.44 10^3/uL (3.29-11.43)
[2024-05-13 06:13] LABS: Alanine Aminotransferase 13 U/L (0-41); Albumin Level 2.9 g/dL (3.5-5.2); Alkaline Phosphatase 66 U/L (40-130); Anion Gap 11.9 (5-19); Aspartate Amino Transferase 15 U/L (0-40); Blood Urea Nitrogen 6 mg/dL (6-20); Calcium 7.9 mg/dL (8.5-10.5); Carbon Dioxide 26 mmol/L (22-29); Chloride 106 mmol/L (98-107); Globulin 2.7 g/dL (1.3-4.6); Glomerular Filtration Rate 173.9 mL/min (90-130); Glucose 143 mg/dL (65-115); Osmolality Calculated 292 mOsm/kg (285-295); Sodium 141 mmol/L (136-145); Total Bilirubin 0.2 mg/dL (0.15-1.2); Total Protein 5.6 g/dL (6.6-8.7)
[2024-05-13 06:35] LABS: Potassium 2.9 mmol/L (3.5-5.1)
[2024-05-13] MEDS: potassium chloride oral liq 20 mEq/15 mL UDC 40 MEQ PO (07:09)
[2024-05-13] MEDS: [UNRECOGNIZED DRUG - OTHER] PEG-TUBE ×2 (09:27→17:46)
[2024-05-13] MEDS: FAMOTIDINE PEG-TUBE ×2 (09:27→17:46)
[2024-05-13] MEDS: GUAIFENESIN 100 MG/5 ML 30 EACH PEG-TUBE ×2 (09:28→16:16)
[2024-05-13] MEDS: RILUZOLE 50 MG 50 EACH PEG-TUBE ×2 (09:29→17:47)
[2024-05-13] MEDS: [UNRECOGNIZED DRUG - REMARK] 4 EACH PEG-TUBE (09:30)
[2024-05-13] MEDS: SINGULAIR 10 MG 10 EACH PEG-TUBE (09:31)
[2024-05-13] MEDS: fluticasone nasal spray 16gm Btl 1 SPRAY NASAL (09:37)
[2024-05-13] MEDS: fidaxomicin 200 mg Tablet XX ×2 (09:37→17:44)
--- NOTE | 2024-05-13 12:36 | PC.SOCIAL ---
IMM Update pg 2 of IMM Updated and reviewed w/ patient. Copy provided and copy dated, initialed and placed in chart.
[2024-05-13] MEDS: magnesium sulfate premix 1 GM/100 ML PIGGYBACK IV (12:58)
[2024-05-13] MEDS: potassium chloride oral liq 20 mEq/15 mL UDC 80 MEQ PO (12:58)
[2024-05-13 13:23] LABS: Magnesium 1.7 mg/dL (1.7-2.3)
--- NOTE | 2024-05-13 15:47 | P.PN_ITS ---
Subjective 2 Subjective: Hospital course, labs appreciated. Examination patient seeing setting comfortably in bed on CPAP. He states he is feeling better. Diarrhea is improving. Breathing is improving. Hemodynamically has remained stable. Appreciate vitals. Vitals/I&O/Wt Last Vital Signs Temp 97.5 F L 05/13/24 11:36 Pulse 98 05/13/24 13:48 Resp 24 H 05/13/24 13:48 BP 116/75 05/13/24 11:36 Pulse Ox 94 05/13/24 13:48 O2 Del Method CPAP 05/13/24 11:36 FiO2 21 05/13/24 02:35 05/13/24 05/13/24 05/13/24 06:59 14:59 22:59 Intake Total 1331.667 / 3378.334 1511.042 / 1511.042 Balance 1331.667 / 3178.334 1511.042 / 1511.042 Weight last 48 hrs Weight 52.2 kg Weight 51 kg Weight 22.226 kg Weight 22.226 kg Weight 50.5 kg Physical Exam 2 Narrative: Sarcopenia, weak. CPAP with nasal pillows. Const: COMMON NORMALS: patient oriented x3 and alert GENERAL APPEARANCE: c ooperative ORIENTATION/CONSCIOUSNESS: Yes awake HENMT: COMMON NORMALS: oropharynx normal Neck/C-Spine: COMMON NORMALS: no JVD Resp: COMMON NORMALS: normal respiratory effort and clear to auscultation bilaterally AUSCULTATION: clear to auscultation bilaterally OTHER: Minimally coarse breath sounds right lung. Cardio: COMMON NORMALS: no JVD, regular rhythm, S1 normal heart sound present, S2 normal heart sound present and No murmurs present (Cardio) RHYTHM: regular rhythm HEART SOUNDS: S1 normal heart sound present and S2 normal heart sound present GI: COMMON NORMALS: Normal to inspection, nondistended, normoactive bowel sounds present, Soft to palpation and non-tender PALPATION: Yes Soft to palpation Extremity: COMMON NORMALS: no joint enlargement and no pedal edema Neuro: COMMON NORMALS: patient oriented x3 and moves all extremities S ENSORIUM/ORIENTATION: Yes alert Skin: COMMON NORMALS: no rashes or lesions noted GENERAL SKIN EXAM: no rashes or lesions noted Data 05/13/24 05:37 05/13/24 05:37 Micro: Microbiology 05/11/24 15:03 Blood Culture - Preliminary Blood NEGATIVE TO DATE 05/11/24 15:00 Blood Culture - Preliminary Blood NEGATIVE TO DATE A&P Assessment and plan (1) C. 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 For now improving. Continue with fidaxomicin. Most likely will need a prolonged treatment of fidaxomicin as an outpatient. Will consult infectious disease for further recommendations. (2) Pneumonia: Seems to be improving. Concerns for aspiration pneumonitis. Past patient had required multiple bronchoscopies for mucous plugging. So far has remained stable. Appreciate CT from admission. For now we will continue with 5-day course of Zosyn and linezolid. Continue with CPAP ventilation. Continue with oxymetazoline, resumed antihistamines. Continue guaifenesin Aspiration precaution. NPO. Qualifiers: Laterality: left Lung location: lower lobe of lung Pneumonia type: due to unspecified organism Qualified Code(s): J18.9 - Pneumonia, unspecified organism Plan ALS: Continue CPAP. Has been more CPAP dependent. Possible progression of ALS. Continue NPO. Tube feeds will be brought in by his to be continued here. Reposition to avoid decubiti. Resume additional home medications. History of recurrent aspiration pneumonia, mucous plugging. No mucous plugging noted currently on CT. Continue NPO. Aspiration precautions. Continue oral hygiene. He brushes his teeth and uses mouthwash. Continue Mucinex, antihistamines, Xopenex, chest vest. Goals of care discussion: At current time in case of deterioration he would still be okay with intubation, mechanical ventilatory support, ideally he would not want to be ventilator dependent although he understands that it is difficult to determine ability to wean ahead of time, however, we may predict there may be difficulties given his overall condition which he understands, at that point if he may come to consideration of extubation trial versus consideration of tracheostomy which he understands. He reserves the right to change his mind about things down the road Replace one 1 g IV magnesium with 80 mg of oral potassium. Repeat BMP in evening. Full code. NPO. Home schedule of tube feeds. Famotidine for PUD prophylaxis Lovenox for DVT prophylaxis Attestations 2 Medical Necessity Statement*: Requires further hospitalization for management of diarrhea in setting of C. difficile colitis, pneumonia in setting of severe ALS with CPAP dependence, severe hypokalemia Diagnoses C. difficile colitis A04.72 Pneumonia J18.9 Laterality: left Lung location: lower lobe of lung Pneumonia type: due to unspecified organism
[2024-05-13 17:14] LABS: Anion Gap 11.3 (5-19); Blood Urea Nitrogen 5 mg/dL (6-20); Calcium 8.4 mg/dL (8.5-10.5); Carbon Dioxide 27 mmol/L (22-29); Chloride 108 mmol/L (98-107); Glomerular Filtration Rate 313.6 mL/min (90-130); Glucose 109 mg/dL (65-115); Osmolality Calculated 290 mOsm/kg (285-295); Potassium 5.3 mmol/L (3.5-5.1); Sodium 141 mmol/L (136-145)
[2024-05-13] MEDS: NORTRIPTYLINE 10 MG/5 ML 30 EACH PEG-TUBE (20:08)
[2024-05-13] MEDS: enoxaparin 30 mg/0.3 mL Syringe SUBCUT (20:08)
[2024-05-13] MEDS: SERTRALINE 20 MG/ML 50 EACH FEED TUBE (20:08)
[2024-05-13] MEDS: GABAPENTIN 250 MG/5 ML 500 EACH PEG-TUBE (20:16)
[2024-05-14] VITALS (7 sets, daily range): BP systolic 100–120; BP diastolic 65–74; PULSE 78–93; RESP 16–20; TEMP 36.3–36.5; O2SAT 94–98
[2024-05-14] MEDS: linezolid premix 600 MG/300 ML PREMIX 300 MG IV (04:00)
[2024-05-14] MEDS: piperacillin-tazobactam 3.375 GM in sodium chloride 0.9% (plus) 50 ML IV (05:04)
[2024-05-14 06:18] LABS: Basophils # 0.1 10^3/uL (0.0-0.1); Basophils % 0.9 %; Eosinophils # 0.5 10^3/uL (0.0-0.8); Eosinophils % 7.3 %; Hematocrit 28.9 % (37-53); Lymphocytes # 2.1 10^3/uL (0.8-4.8); Mean Corpuscular HGB Conc 30.8 g/dL (30-55); Mean Corpuscular Hemoglobin 28.3 pg (27-33); Mean Corpuscular Volume 91.7 fl (82-101); Monocytes # 0.6 10^3/uL (0.2-0.9); Monocytes % 9.7 %; Neutrophils # 3.19 10^3/uL (1.8-7.7); Neutrophils % 49.9 %; Nucleated Red Blood Cells % 0 %; Platelet Count 379 10^3/cmm (157-399); Red Blood Count 3.15 10^6/uL (3.85-5.65); Red Cell Distribution Width 15.9 % (12.1-15.1)
[2024-05-14 06:51] LABS: Alanine Aminotransferase 15 U/L (0-41); Albumin Level 3.1 g/dL (3.5-5.2); Alkaline Phosphatase 65 U/L (40-130); Aspartate Amino Transferase 18 U/L (0-40); Blood Urea Nitrogen 4 mg/dL (6-20); Carbon Dioxide 27 mmol/L (22-29); Chloride 108 mmol/L (98-107); Creatinine Clr Calc Pharmacy 354.6156; Globulin 2.4 g/dL (1.3-4.6); Glomerular Filtration Rate 500.7 mL/min (90-130); Glucose 111 mg/dL (65-115); Osmolality Calculated 292 mOsm/kg (285-295); Sodium 142 mmol/L (136-145); Total Bilirubin 0.2 mg/dL (0.15-1.2); Total Protein 5.5 g/dL (6.6-8.7)
[2024-05-14 06:55] LABS: Magnesium 1.9 mg/dL (1.7-2.3)
[2024-05-14] MEDS: levalbuterol 0.63 mg/3 mL Neb INHALATION (08:56)
[2024-05-14] MEDS: RILUZOLE 50 MG 50 EACH PEG-TUBE (09:26)
[2024-05-14] MEDS: FAMOTIDINE PEG-TUBE (09:26)
[2024-05-14] MEDS: [UNRECOGNIZED DRUG - OTHER] PEG-TUBE (09:26)
[2024-05-14] MEDS: fidaxomicin 200 mg Tablet XX (09:30)
[2024-05-14] MEDS: [UNRECOGNIZED DRUG - REMARK] 4 EACH PEG-TUBE (09:30)
[2024-05-14] MEDS: fluticasone nasal spray 16gm Btl 1 SPRAY NASAL (09:30)
[2024-05-14] MEDS: SINGULAIR 10 MG 10 EACH PEG-TUBE (09:31)
[2024-05-14] MEDS: GUAIFENESIN 100 MG/5 ML 30 EACH PEG-TUBE (09:31)
--- NOTE | 2024-05-14 10:52 | PM.DCS ---
Discharge Providers Date of Admission: 05/11/24 17:04 Date of Discharge: May 14, 2024 Attending Provider at Admission: Isaías Abbott Attending Provider at Discharge: Cole Contreras MD Primary Care Provider: MORENO Ferrara Diagnoses at Discharge Discharge Diagnosis (1) C. difficile colitis: Status: Acute (2) Pneumonia: Status: Acute Qualifiers: Laterality: left Lung location: lower lobe of lung Pneumonia type: due to unspecified organism Qualified Code(s): J18.9 - Pneumonia, unspecified organism Reason for Visit Reason for Visit: Weakness Hospital Course Hospital Course Silvestre Espinosa is a 53 year old male with ALS, wheelchair-bound,PEG tube feeding, ulcerative colitis on vedolizumab, recurrent C. difficile. He has impaired cough and inability to expectorate with frequent recent hospital admissions this year with recurrent pneumonia related to mucous plugging. Patient has been compliant with using chest vest, intermittent suctioning, repositioning with sleep, elevating head of bed however continues to have recurrent aspirations. Most recently he was transferred to [facility] in March 2024 where he needed a bronchoscopy. He has additionally had issues with recurrent C. difficile for which she underwent an FMT at [facility] in January of this year. Patient is currently admitted to the hospital since May 11, 2024 after presenting with multiple episodes of diarrhea that started 1 day prior. Patient was feeling in his usual state of health, more recently he has been on his CPAP for most part of the day. Though they feel the never quite recovered from the last bronchoscopy, from a respiratory standpoint he had no acute issues recently. His white blood cell count increased from 6000 a week prior to 32,000 and he was brought in with the same. Tested positive for C. difficile. CT of the chest showed bilateral pneumonia worsened compared to December 2023. However comparing serial x-rays he has patchy right lung infiltrates which appear very similar and in fact improving from his admission in March 2024. Suspect that the right lung infiltrates represent radiological lag from his most recent pneumonia and bronchoscopic intervention in March 2024. To see some degree of atelectasis and scarring per personal interpretation of the CT images. No gross consolidation noted. Patient has been receiving treatment with piperacillin/tazobactam and linezolid since admission for this reason. His diarrhea is currently improving since starting treatment with initially oral vancomycin and then later switched to oral Dificid via PEG. Physical Exam Narrative: Sarcopenia, weak. CPAP with nasal pillows. Const: COMMON NORMALS: patient oriented x3 and alert GENERAL APPEARANCE: cooperative ORIENTATION/CONSCIOUSNESS: Yes awake HENMT: COMMON NORMALS: oropharynx normal Neck/C-Spine: COMMON NORMALS: no JVD Resp: COMMON NORMALS: normal respiratory effort and clear to auscultation bilaterally AUSCULTATION: clear to auscultation bilaterally OTHER: Minimally coarse breath sounds right lung. Cardio: COMMON NORMALS: no JVD, regular rhythm, S1 normal heart sound present, S2 normal heart sound present and No murmurs present (Cardio) RHYTHM: regular rhythm HEART SOUNDS: S1 normal heart sound present and S2 normal heart sound present GI: COMMON NORMALS: Normal to inspection, nondistended, normoactive bowel sounds present, Soft to palpation and non-tender PALPATION: Yes Soft to palpation Extremity: COMMON NORMALS: no joint enlargement and no pedal edema Neuro: COMMON NORMALS: patient oriented x3 and moves all extremities SENSORIUM/ORIENTATION: Yes alert Skin: COMMON NORMALS: no rashes or lesions noted GENERAL SKIN EXAM: no rashes or lesions noted Discharge Data Studies Completed and Pending Completed Studies During Hospitalization Category Date Time Status CT angio chest PE protcl [id number] Stat Cat Scan 05/11/24 15:33 Completed XR chest 1V portable [id number] Stat Exams 05/11/24 14:28 Completed Pending at discharge Category Date Time Status Blood Culture Stat Lab 05/11/24 15:03 Results MAG [Magnesium] AM LABS Lab 05/15/24 04:00 Ordered MAG [Magnesium] AM LABS Lab 05/16/24 04:00 Ordered Sputum Culture and Gram Stain Stat Lab 05/11/24 15:20 Uncollected Radiology Impressions Chest X-Ray 05/11/24 14:28 IMPRESSION: Patchy right lung infiltrates appear similar to the prior study and may represent residual pneumonia or scar tissue. Chest CTA 05/11/24 15:33 IMPRESSION: Bilateral pneumonia worsened in the right middle lobe when compared to the prior CT scan. Laboratory Results WBC 6.40 10^3/uL (3.29-11.43) 05/14/24 05:50 RBC 3.15 10^6/uL (3.85-5.65) L 05/14/24 05:50 Hgb 8.90 g/dL (11.27-16.99) L 05/14/24 05:50 Hct 28.9 % (37-53) L 05/14/24 05:50 MCV 91.7 fl (82-101) 05/14/24 05:50 MCH 28.3 pg (27-33) 05/14/24 05:50 MCHC 30.8 g/dL (30-55) 05/14/24 05:50 RDW 15.9 % (12.1-15.1) H 05/14/24 05:50 Plt Count 379 10^3/cmm (157-399) 05/14/24 05:50 MPV 10.0 fL (7.4-10.4) 05/14/24 05:50 Neut % (Auto) 49.9 % 05/14/24 05:50 Lymph % (Auto) 32.0 % 05/14/24 05:50 [place] % (Auto) 9.7 % 05/14/24 05:50 Eos % (Auto) 7.3 % 05/14/24 05:50 Baso % (Auto) 0.9 % 05/14/24 05:50 Neut # (Auto) 3.19 10^3/uL (1.8-7.7) 05/14/24 05:50 Lymph # (Auto) 2.1 10^3/uL (0.8-4.8) 05/14/24 05:50 [place] # (Auto) 0.6 10^3/uL (0.2-0.9) 05/14/24 05:50 Eos # (Auto) 0.5 10^3/uL (0.0-0.8) 05/14/24 05:50 Baso # (Auto) 0.1 10^3/uL (0.0-0.1) 05/14/24 05:50 Nucleated RBC % (auto) 0 % 05/14/24 05:50 Nucleated RBCs # 0.0 /100WBC 05/14/24 05:50 Sodium 142 mmol/L (136-145) 05/14/24 05:50 Potassium 4.0 mmol/L (3.5-5.1) 05/14/24 05:50 Chloride 108 mmol/L (98-107) H 05/14/24 05:50 Carbon Dioxide 27 mmol/L (22-29) 05/14/24 05:50 Anion Gap 11.0 (5-19) 05/14/24 05:50 BUN 4 mg/dL (6-20) L 05/14/24 05:50 Creatinine 0.2 mg/dL (0.7-1.2) L 05/14/24 05:50 GFR Calculation 500.7 mL/min (90-130) H 05/14/24 05:50 Glucose 111 mg/dL (65-115) 05/14/24 05:50 Calculated Osmolality 292 mOsm/kg (285-295) 05/14/24 05:50 Lactic Acid 2.5 mmol/L (0.5-2.2) H 05/11/24 15:00 Lactic Acid (Sepsis) 2.0 mmol/L (0.5-2.2) 05/11/24 18:43 Calcium 8.0 mg/dL (8.5-10.5) L 05/14/24 05:50 Phosphorus 2.5 mg/dL (2.5-4.5) 05/12/24 05:00 Magnesium 1.9 mg/dL (1.7-2.3) 05/14/24 05:50 Total Bilirubin 0.2 mg/dL (0.15-1.2) 05/14/24 05:50 AST 18 U/L (0-40) 05/14/24 05:50 ALT 15 U/L (0-41) 05/14/24 05:50 Alkaline Phosphatase 65 U/L (40-130) 05/14/24 05:50 Total Protein 5.5 g/dL (6.6-8.7) L 05/14/24 05:50 Albumin 3.1 g/dL (3.5-5.2) L 05/14/24 05:50 Globulin 2.4 g/dL (1.3-4.6) 05/14/24 05:50 Urine Color Dark yellow (Yellow) A 05/11/24 17:38 Urine Appearance Clear (CLEAR) 05/11/24 17:38 Urine pH 5.0 (5-7) 05/11/24 17:38 Ur Specific [place] 1.095 (1.005-1.030) H 05/11/24 17:38 Urine Protein Trace (Negative) A 05/11/24 17:38 Urine Glucose (UA) Negative (Normal) 05/11/24 17:38 Urine Ketones Negative (Negative) 05/11/24 17:38 Urine Blood Negative (Negative) 05/11/24 17:38 Urine Nitrate Negative (Negative) 05/11/24 17:38 Urine Bilirubin Negative (Negative) 05/11/24 17:38 Urine Urobilinogen 1.0 mg/dL (Negative) 05/11/24 17:38 Ur Leukocyte Esterase Negative (Negative) 05/11/24 17:38 Urine RBC 5-10 /hpf (0-2) H 05/11/24 17:38 Amorphous Sediment Trace /hpf 05/11/24 17:38 Urine Bacteria Trace /hpf (NONE) 05/11/24 17:38 Hyaline Casts 0-4 /lpf H 05/11/24 17:38 Urine Mucus Trace /hpf 05/11/24 17:38 C. difficile (PCR) Positive (Negative) H 05/11/24 17:38 C.difficile Tox Confrm Positive (Negative) H 05/11/24 17:38 Coronavirus (PCR) Negative (Negative) 05/11/24 14:56 Influenza A (PCR) Negative (Negative) 05/11/24 14:56 Influenza Type B (PCR) Negative (Negative) 05/11/24 14:56 RSV (PCR) Negative (Negative) 05/11/24 14:56 Vitals Last Vital Signs Temp 97.7 F 05/14/24 08:02 Pulse 89 05/14/24 08:02 Resp 18 05/14/24 08:02 BP 102/70 05/14/24 08:02 Pulse Ox 96 05/14/24 08:02 O2 Del Method BiPAP 05/14/24 08:02 FiO2 21 05/13/24 21:10 Discharge Plan Discharge Patient Disposition: Home Condition: Stable Prescriptions: New Dificid 200 mg Tablet 200 mg feeding tube BID Qty: 30 0RF Rx Instructions: Take 200 mg twice daily for next 10 days followed by 1 tablet every other day for next 20 days Continued sertraline [Zoloft] 20 mg/mL concentrate 50 mg feeding tube BEDTIME Rx Instructions: 2.5 ml at bedtime per (there are no dose/frequency instructions on bottle) vancomycin 50 mg/mL recon soln 125 mg PO DAILY PRN (Reason: c diff) 7 Days Qty: 80 6RF Rx Instructions: C diff prophylaxis-start with any abx use cetirizine 1 mg/mL Solution 10 mg PO BEDTIME Rx Instructions: 10 ml Chlorpheniramine Allergy 4 mg peg-tube DAILY Singulair 10 mg peg-tube DAILY famotidine 40 mg/5 mL (8 mg/mL) Suspension For Reconstitution 20 mg PO BID Rx Instructions: 2.5 ml gabapentin 250 mg/5 mL Solution 500 mg PO BEDTIME Rx Instructions: 10 ml riluzole 50 mg Tablet 50 mg PO BID Rx Instructions: administer on an empty stomach, at least 1 hour before or 2 hours after food/meal(s) nortriptyline 10 mg/5 mL Solution 30 mg feeding tube BEDTIME scopolamine base 1 mg over 3 days Patch 3 Day 0.5 patch TRANSDERMAL Q2D acetaminophen 500 mg/15 mL Liquid 1,000 mg feeding tube Q4-5H PRN (Reason: Fever) guaifenesin [Jing-Tussin] 100 mg/5 mL Liquid 600 mg PO BID Discharge Orders: Discharge Order (Routine); Ordered 05/14/24 Ordered By: Cole Contreras Referrals: Chel Weinstein FNP [Primary Care Provider] - 05/20/24 11:00 am Discharge Diet: Usual diet Discharge Activity: Resume usual activity and Increase activity as tolerated Patient Instructions: Clostridium Difficile, Fidaxomicin (By mouth), Pneumonia (DC), Opioid Safety, Pneumonia Stoplight Activity Restrictions/Additional Instructions: Please take Dificid as ordered along with taper. Follow-up with a primary care provider on set appointment. Discharge Attestations Time Spent in Discharge Care*: greater than 30 min Specific Discharge Activities: educating patient, educating and/or supporting family/caregiver, discussing with pcp/other providers, discussing with supervisor case loading/social workers/dc planners, documenting/other paperwork and evaluating patient/reviewing data Status at Discharge: Cognitive status at discharge: cognitively intact, Behavioral status at discharge: cooperative, Functional status at discharge: wheelchair bound, Overall status at discharge: patient is back to baseline Quality Metrics Clinical Quality Measures [ No reported AMI, CVA or VTE this stay] Coding Level of Care Code 20142 Total time (in minutes) for Discharge: 55 Diagnoses C. difficile colitis A04.72 Pneumonia J18.9 Laterality: left Lung location: lower lobe of lung Pneumonia type: due to unspecified organism
--- NOTE | 2024-05-14 12:00 | P.CONIM_ITS ---
Providers/Reason For Consult 2 Consulting Physician/Specialty*: Jossy Keene MD / Infectious Disease Reason for Consult*: C diff recurrent Requesting Physician: Cole Contreras MD Attending Physician: Cole Contreras MD Primary Care Provider: MORENO Ferrara History of Present Illness History of Present Illness Silvestre Espinosa is a 53 year old male with ALS, wheelchair-bound,PEG tube feeding, ulcerative colitis on vedolizumab, recurrent C. difficile. He has impaired cough and inability to expectorate with frequent recent hospital admissions this year with recurrent pneumonia related to mucous plugging. Patient has been compliant with using chest vest, intermittent suctioning, repositioning with sleep, elevating head of bed however continues to have recurrent aspirations. Most recently he was transferred to [facility] in March 2024 where he needed a bronchoscopy. He has additionally had issues with recurrent C. difficile for which she underwent an FMT at [facility] in January of this year. Patient is currently admitted to the hospital since May 11, 2024 after presenting with multiple episodes of diarrhea that started 1 day prior. Patient was feeling in his usual state of health, more recently he has been on his CPAP for most part of the day. Though they feel the never quite recovered from the last bronchoscopy, from a respiratory standpoint he had no acute issues recently. His white blood cell count increased from 6000 a week prior to 32,000 and he was brought in with the same. Tested positive for C. difficile. CT of the chest showed bilateral pneumonia worsened compared to December 2023. However comparing serial x-rays he has patchy right lung infiltrates which appear very similar and in fact improving from his admission in March 2024. Suspect that the right lung infiltrates represent radiological lag from his most recent pneumonia and bronchoscopic intervention in March 2024. To see some degree of atelectasis and scarring per personal interpretation of the CT images. No gross consolidation noted. Patient has been receiving treatment with piperacillin/tazobactam and linezolid since admission for this reason. His diarrhea is currently improving since starting treatment with initially oral vancomycin and then later switched to oral Dificid via PEG. Review of Systems 2 General: Reports: 10 or more systems reviewed and unremarkable except in HPI and below Const: Denies: fever(s), chills or body aches Eyes: Denies: change in vision, blurry vision or photophobia ENMT: Reports: hoarseness; Denies: throat pain, enlarged tonsils, odynophagia or nasal congestion Card: Denies: chest pain, palpitations, irregular heart rhythm, edema, swelling of feet/ankles, lightheadedness, pre-syncope, dyspnea on exertion or orthopnea Resp: Denies: dyspnea, productive cough, non-productive cough, wheezing, stridor, pain on inspiration, change in phlegm color, hemoptysis or chest congestion GI: Denies: abdominal pain, nausea, vomiting, hematemesis, coffee ground emesis, dysphagia, heartburn, diarrhea, constipation, GI cramping, change in stool character, hematochezia or melena : Denies: flank pain, dysuria, urinary frequency, urinary urgency, urinary hesitancy or hematuria Musc: Denies: neck pain, back pain, extremity pain, joint swelling, joint warmth or deformity Neuro: Denies: headache(s), numbness in extremities, weakness in extremities, sensory changes, difficulty walking, frequent falls, dizziness, vertigo, behavioral changes, Slurred speech present or seizure-like activity Psych: Denies: anxiety, depression, suicidal ideation or homicidal ideation Endo: Denies: polyuria, polydipsia, tired all the time, cold intolerance or hot flashes Piero/Lymph: Denies: easy bruising or easy bleeding Medications/Allergies Home Medications Medication Instructions Recorded Confirmed Last Taken Type sertraline 20 mg/mL oral 50 mg feeding tube BEDTIME 05/16/23 05/12/24 05/11/24 20:00 History concentrate (Zoloft) cetirizine 1 mg/mL oral solution 10 mg PO BEDTIME 10/16/23 05/12/24 05/11/24 20:00 History famotidine 40 mg/5 mL (8 mg/mL) 20 mg PO BID 12/13/23 05/12/24 05/11/24 20:00 History oral suspension gabapentin 250 mg/5 mL oral 500 mg PO BEDTIME 12/13/23 05/12/24 05/11/24 20:00 History solution acetaminophen 500 mg/15 mL oral 1,000 mg feeding tube Q4-5H PRN 01/08/24 05/12/24 05/11/24 20:00 History liquid Fever guaifenesin 100 mg/5 mL oral 600 mg PO BID 01/08/24 05/12/24 05/11/24 20:00 History liquid (Jing-Tussin) nortriptyline 10 mg/5 mL oral 30 mg feeding tube BEDTIME 01/08/24 05/12/24 05/11/24 20:00 History solution riluzole 50 mg tablet 50 mg PO BID 01/08/24 05/12/24 05/11/24 20:00 History scopolamine base 1 mg over 3 days 0.5 patch transdermal Q2D 01/08/24 05/12/24 01/08/24 09:00 History transdermal patch vancomycin 50 mg/mL oral solution 125 mg (2.5 mL) PO DAILY PRN c 02/22/24 05/12/24 Unknown Rx diff 7 days #80 mL Chlorpheniramine Allergy 4 mg peg-tube DAILY 05/12/24 05/12/24 05/11/24 08:00 History Singulair 10 mg peg-tube DAILY 05/12/24 05/12/24 05/11/24 08:00 History fidaxomicin 200 mg tablet (Dificid) 200 mg feeding tube BID #30 tabs 05/14/24 Unknown Rx Allergies Allergy/AdvReac Type Severity Reaction Status Date / Time No Known Allergies Allergy Verified 02/13/24 12:35 PFSH Acute 2 PFSH: Medical History (Updated 05/14/24 @ 16:27 by Jossy Keene MD) Recurrent Clostridioides difficile diarrhea S/P fecal transplant D-dimer, elevated Multiple tracheobronchial mucus plugs Weak cough At risk for aspiration Left lower lobe consolidation Recurrent pneumonia SI (sacroiliac) pain Anemia of chronic disease Depression Peripheral neuropathy Fracture of femoral neck, right Chronic, nondisplaced, for non operative management to date, follows with [facility] Small bowel obstruction 06/08 C. difficile enteritis Ulcerative (chronic) enterocolitis ALS (amyotrophic lateral sclerosis) Diagnosed in 2019 Surgical History History of oral surgery History of esophageal surgery Family History Denies family history of Diabetes Hypertension Social History Smoking and tobacco/nicotine status: never used tobacco/nicotine Alcohol intake: never Substance/Drug Use: never Vitals/I&O/Wt Last Vital Signs Temp 97.5 F L 05/14/24 14:03 Pulse 90 05/14/24 14:03 Resp 16 05/14/24 14:03 BP 120/74 05/14/24 14:03 Pulse Ox 94 05/14/24 14:03 O2 Del Method BiPAP 05/14/24 12:19 FiO2 21 05/13/24 21:10 05/14/24 05/14/24 05/14/24 06:59 14:59 22:59 Intake Total 350 / 2430.000 50 / 50 Output Total 100 / 100 Balance 250 / 2330.000 50 / 50 Weight last 48 hrs Weight 58.695 kg Weight 52.2 kg Physical Exam 2 Narrative: General: No acute distress, AO x3, chronically ill-appearing, currently on CPAP. HEENT: PERRLA, pupils bilaterally equal and reactive, pallors not present Neuro: Wheelchair-bound at baseline. Multiple deficits related to known ALS currently at baseline. Data 05/14/24 05:50 05/14/24 05:50 A&P Assessment and plan (1) Recurrent Clostridioides difficile diarrhea: Patient presenting this current admission with recurrent C. difficile diarrhea Currently improving after starting treatment with initially oral vancomycin and then switched to oral fidaxomicin 200 mg twice daily. Since he is currently improving with improving diarrhea and resolved leukocytosis, stable for discharge from ID standpoint. Recommend discharge on Dificid 200 mg twice daily for 10 days followed by fidaxomicin once every other day for 20 days. We do not currently have bezlotoxumab available at our hospital. Will send another referral to assess for FMT to [facility]. (2) S/P fecal transplant: (3) ALS (amyotrophic lateral sclerosis): (4) Recurrent aspiration pneumonia: last episode in 03/2024 Currently per personal review of CT and x-ray images, suspect that the right middle and lower lobe changes are present a mixture of radiological lag and fibrosis. He has received piperacillin/tazobactam and linezolid during course of admission. Discontinue antibiotics at discharge as more likely explanation for his current symptoms were the C. difficile colitis. Consult Attestations 2 Medical Necessity Statement: Per admitting. This documentation was created by [employer] r developer software. Every effort was made to ensure accuracy of r developer. Any obvious errors or omissions should be clarified with the author of the document. Coding Level of Care Code Acute Code for Chg Fwd Moderate MDM includes number and complexity of problems actively addressed during encounter, amount and/or complexity of data reviewed/ordered and described risk of complication, morbidity or mortality of management as documented Diagnoses Recurrent Clostridioides difficile diarrhea A04.71 S/P fecal transplant Z92.89 ALS (amyotrophic lateral sclerosis) G12.21 Recurrent aspiration pneumonia J69.0
--- NOTE | 2024-05-14 13:57 | PC.RESP ---
unable to perform NIF due to mouth seal
== END 2024-05-14 14:05 | disposition home or self-care (01) | DRG 371 ==
LOC: ER 14:56 → ICU 18:03 → MEDSURG 05-12 17:19
PROVIDERS: Admitting Provider Internal Medicine; Emergency Provider Family Medicine; PCP Nurse Practitioner; Visit Provider Student in an Organized Health Care Education/Training Program
DX: A04.71 Enterocolitis due to Clostridium difficile, recurrent (principal); J18.9 Pneumonia, unspecified organism; G12.21 Amyotrophic lateral sclerosis; J96.10 Chronic respiratory failure, unspecified whether with hypoxia or hypercapnia; K51.90 Ulcerative colitis, unspecified, without complications; J98.11 Atelectasis; Z68.1 Body mass index [BMI] 19.9 or less, adult; R64 Cachexia; E86.1 Hypovolemia; E87.6 Hypokalemia; F32.A Depression, unspecified; Z87.01 Personal history of pneumonia (recurrent); Z99.81 Dependence on supplemental oxygen; Z99.3 Dependence on wheelchair; Z93.1 Gastrostomy status; Z79.620 Long term (current) use of immunosuppressive biologic; Z11.52 Encounter for screening for COVID-19
CPT/HCPCS: 0241U; 36415; 71045; 71275; 80048; 80053; 81001; 83605; 83735; 84100; 85025; 87040; 87324; 87493; 93005; 94640; 94664; 94669; 96365; 96367; 96372; 96374; 96376; 99285; J1650; J2020; J2405; J2470; J2543; J3370; J3475; J7030; J7050; J7614

== ENCOUNTER 2024-05-20 13:06 | Oncology outpatient (recurring) (ONCR) | payer OTHER, SELFPAY ==
[2024-05-20] MEDS: vedolizumab 300 MG in sodium chloride 0.9% 250 ML 500 MG IV (13:58)
== END 2024-06-15 23:59 | disposition home or self-care (01) ==
PROVIDERS: PCP Nurse Practitioner; Visit Provider Internal Medicine Gastroenterology
DX: Z79.620 Long term (current) use of immunosuppressive biologic (principal); K51.00 Ulcerative (chronic) pancolitis without complications
CPT/HCPCS: 96413; J3380; J7050

== ENCOUNTER 2024-05-22 13:13 | Outpatient (CLI) | payer OTHER, SELFPAY ==
[2024-05-22 13:29] LABS: Basophils # 0.1 10^3/uL (0.0-0.1); Basophils % 0.4 %; Eosinophils # 0.2 10^3/uL (0.0-0.8); Eosinophils % 1.2 %; Hematocrit 40.3 % (37-53); Lymphocytes # 1.7 10^3/uL (0.8-4.8); Lymphocytes % 13.4 %; Mean Corpuscular Hemoglobin 28.6 pg (27-33); Mean Corpuscular Volume 92.2 fl (82-101); Mean Platelet Volume 9.5 fL (7.4-10.4); Monocytes # 0.8 10^3/uL (0.2-0.9); Neutrophils # 9.91 10^3/uL (1.8-7.7); Neutrophils % 78.7 %; Nucleated Red Blood Cells % 0 %; Platelet Count 604 10^3/cmm (157-399); Red Blood Count 4.37 10^6/uL (3.85-5.65); Red Cell Distribution Width 16.1 % (12.1-15.1)
[2024-05-22 13:47] LABS: Alanine Aminotransferase 15 U/L (0-41); Albumin Level 3.9 g/dL (3.5-5.2); Alkaline Phosphatase 87 U/L (40-130); Anion Gap 16.8 (5-19); Aspartate Amino Transferase 25 U/L (0-40); Blood Urea Nitrogen 11 mg/dL (6-20); Carbon Dioxide 31 mmol/L (22-29); Chloride 99 mmol/L (98-107); Glomerular Filtration Rate 313.6 mL/min (90-130); Glucose 129 mg/dL (65-115); Osmolality Calculated 295 mOsm/kg (285-295); Potassium 4.8 mmol/L (3.5-5.1); Sodium 142 mmol/L (136-145); Total Bilirubin 0.2 mg/dL (0.15-1.2); Total Protein 7.9 g/dL (6.6-8.7)
== END 2024-05-22 13:14 | disposition home or self-care (01) ==
LOC: LAB 13:17
PROVIDERS: PCP Nurse Practitioner; Visit Provider Student in an Organized Health Care Education/Training Program
DX: A04.72 Enterocolitis due to Clostridium difficile, not specified as recurrent (principal)
CPT/HCPCS: 36415; 80053; 85025

== ENCOUNTER 2024-05-24 15:57 | Inpatient (IN) | payer OTHER, SELFPAY ==
[2024-05-24] VITALS (12 sets, daily range): BP systolic 101–123; BP diastolic 66–80; PULSE 92–128; RESP 16–29; TEMP 36.8–37.2; O2SAT 90–95
--- NOTE | 2024-05-24 16:59 | XRR_ITS ---
PROCEDURE INFORMATION: Exam: XR Chest Exam date and time: 05/24/2024 5:48 PM Age: 53 years old Clinical indication: Cough and fever; Additional info: Fever, cough TECHNIQUE: Imaging protocol: Radiologic exam of the chest. Views: 1 view. COMPARISON: CT angio chest PE protcl [id number] 05/11/2024 4:02 PM FINDINGS: Lungs: There is peribronchial thickening. Patchy airspace disease right lung base with possible bronchiectasis. Pleural spaces: Unremarkable. No pleural effusion. No pneumothorax. Heart/Mediastinum: Unremarkable. No cardiomegaly. Bones/joints: Unremarkable. XR/XR chest 1V portable [id number] IMPRESSION: Bronchial wall thickening with small infiltrates right lung base.
[2024-05-24 17:46] LABS: Basophils # 0.1 10^3/uL (0.0-0.1); Basophils % 0.2 %; Eosinophils % 0.1 %; Hematocrit 44.3 % (37-53); Lymphocytes # 0.9 10^3/uL (0.8-4.8); Lymphocytes % 2.9 %; Mean Corpuscular HGB Conc 30.2 g/dL (30-55); Mean Corpuscular Hemoglobin 28.1 pg (27-33); Mean Corpuscular Volume 92.9 fl (82-101); Mean Platelet Volume 10.3 fL (7.4-10.4); Monocytes # 1.1 10^3/uL (0.2-0.9); Monocytes % 3.6 %; Neutrophils # 28.01 10^3/uL (1.8-7.7); Neutrophils % 92.6 %; Nucleated Red Blood Cells % 0 %; Platelet Count 566 10^3/cmm (157-399); Red Blood Count 4.77 10^6/uL (3.85-5.65); Red Cell Distribution Width 16.1 % (12.1-15.1)
[2024-05-24 17:50] LABS: White Blood Count 30.25 10^3/uL (3.29-11.43)
[2024-05-24 18:08] LABS: Alanine Aminotransferase 15 U/L (0-41); Albumin Level 3.9 g/dL (3.5-5.2); Alkaline Phosphatase 95 U/L (40-130); Aspartate Amino Transferase 20 U/L (0-40); Blood Urea Nitrogen 12 mg/dL (6-20); C Reactive Protein 148.3 mg/L (0.0-4.9); Calcium 9.2 mg/dL (8.5-10.5); Carbon Dioxide 28 mmol/L (22-29); Chloride 95 mmol/L (98-107); Globulin 3.5 g/dL (1.3-4.6); Glomerular Filtration Rate 313.6 mL/min (90-130); Glucose 89 mg/dL (65-115); Osmolality Calculated 281 mOsm/kg (285-295); Sodium 136 mmol/L (136-145); Total Bilirubin 0.2 mg/dL (0.15-1.2); Total Protein 7.4 g/dL (6.6-8.7)
[2024-05-24 18:34] LABS: Anion Gap 17.6 (5-19); Potassium 4.6 mmol/L (3.5-5.1)
--- NOTE | 2024-05-24 19:21 | CTR_ITS ---
PROCEDURE INFORMATION: Exam: CT Chest Without Contrast; Diagnostic Exam date and time: 05/24/2024 10:13 PM Age: 53 years old Clinical indication: Cough and shortness of breath; Patient HX: Cough with worsening SOB and hypoxia. History of als. ; Additional info: SOB, pneumonia TECHNIQUE: Imaging protocol: Diagnostic computed tomography of the chest without contrast. Radiation optimization: All CT scans at this facility use at least one of these dose optimization techniques: automated exposure control; mA and/or kV adjustment per patient size (includes targeted exams where dose is matched to clinical indication); or iterative reconstruction. COMPARISON: CT angio chest PE protcl [id number] 05/11/2024 4:02 PM RADIATION DOSE METRICS: Total DLP (mGy-cm): 1028.55 FINDINGS: Lungs: Persistent multifocal patchy ground-glass opacities along with consolidation in the right middle and lower lobes. Pleural spaces: Unremarkable. No pneumothorax. No pleural effusion. Heart: Unremarkable. No cardiomegaly. No pericardial effusion. Coronary arteries: No coronary calcification. Esophagus: Mild circumferential distal esophageal wall thickening which may reflect sequelae of esophagitis. Lymph nodes: Unremarkable. No enlarged lymph nodes. Vasculature: Unremarkable. No aortic aneurysm. Bones/joints: No acute fracture. Soft tissues: Unremarkable. CT/CT chest wo con [id number] IMPRESSION: Persistent multifocal pneumonia, most significant in the right middle and lower lobes.
--- NOTE | 2024-05-24 20:02 | ED_ITS ---
HPI - SOB/Dyspnea 2 General: Chief Complaint: Shortness of Breath/Dyspnea Stated Complaint: Difficulty breathing Time Seen by Provider: 05/24/24 17:03 History of Present Illness: HPI Narrative: 53-year-old man with a history of ALS an d recurrent pneumonia who presents to the emergency with worsening shortness of breath and fever. He was recently diagnosed with C. difficile and was about to complete medications for this but then developed fever and cough. His white count gone back up so Dr. Keene placed him on Omnicef. Today has become worse again. Heart rate is up over his baseline. says his heart rate normally is around 110. He also has been having some fevers at home. He is on his home BiPAP when he is here. He is not having any chest pain which is what he normally has when he has a mucous plug. No altered mental status. No focal motor deficits. Related Data Home Medications Medication Instructions Recorded Confirmed sertraline 20 mg/mL oral 50 mg feeding tube BEDTIME 05/16/23 05/12/24 concentrate (Zoloft) cetirizine 1 mg/mL oral solution 10 mg PO BEDTIME 10/16/23 05/12/24 famotidine 40 mg/5 mL (8 mg/mL) 20 mg PO BID 12/13/23 05/12/24 oral suspension gabapentin 250 mg/5 mL oral 500 mg PO BEDTIME 12/13/23 05/12/24 solution acetaminophen 500 mg/15 mL oral 1,000 mg feeding tube Q4-5H PRN 01/08/24 05/12/24 liquid Fever guaifenesin 100 mg/5 mL oral 600 mg PO BID 01/08/24 05/12/24 liquid (Jing-Tussin) nortriptyline 10 mg/5 mL oral 30 mg feeding tube BEDTIME 01/08/24 05/12/24 solution riluzole 50 mg tablet 50 mg PO BID 01/08/24 05/12/24 scopolamine base 1 mg over 3 days 0.5 patch transdermal Q2D 01/08/24 05/12/24 transdermal patch Chlorpheniramine Allergy 4 mg peg-tube DAILY 05/12/24 05/12/24 Singulair 10 mg peg-tube DAILY 05/12/24 05/12/24 Previous Rx's Medication Instructions Recorded vancomycin 50 mg/mL oral solution 125 mg (2.5 mL) PO DAILY PRN c 02/22/24 diff 7 days #80 mL fidaxomicin 200 mg tablet (Dificid) 200 mg feeding tube BID #30 tabs 05/24/24 Allergies Allergy/AdvReac Type Severity Reaction Status Date / Time No Known Allergies Allergy Verified 02/13/24 12:35 Review of Systems 2 Narrative: Constitutional symptoms: Negative except as documented in HPI. Skin symptoms: Negative except as documented in HPI. Eye symptoms: Negative except as documented in HPI. ENMT symptoms: Negative except as documented in HPI. Respiratory symptoms: Negative except as documented in HPI. Cardiovascular symptoms: Negative except as documented in HPI. Gastrointestinal symptoms: Negative except as documented in HPI. Genitourinary symptoms: Negative except as documented in HPI. Musculoskeletal symptoms: Negative except as documented in HPI. Neurologic symptoms: Negative except as documented in HPI. Psychiatric symptoms: Negative except as documented in HPI. Endocrine symptoms: Negative except as documented in HPI. PFSH ED 2 PFSH: Medical History (Updated 05/24/24 @ 20:57 by Francoise Lozano MD) Recurrent Clostridioides difficile diarrhea S/P fecal transplant D-dimer, elevated Multiple tracheobronchial mucus plugs Weak cough At risk for aspiration Left lower lobe consolidation Recurrent pneumonia SI (sacroiliac) pain Anemia of chronic disease Depression Peripheral neuropathy Fracture of femoral neck, right Chronic, nondisplaced, for non operative management to date, follows with [facility] Small bowel obstruction 06/08 C. difficile enteritis Ulcerative (chronic) enterocolitis ALS (amyotrophic lateral sclerosis) Diagnosed in 2019 Surgical History History of oral surgery History of esophageal surgery Family History Denies family history of Diabetes Hypertension Social History Smoking and tobacco/nicotine status: never used tobacco/nicotine Alcohol intake: never Substance/Drug Use: never Physical Exam 2 Narrative: EXAM NARRATIVE: General: Alert, patient is fairly thin and cachectic. Nasal BiPAP is in place Skin: Warm, dry. Head: Normocephalic, atraumatic. Neck: Supple, trachea midline. Eye: Extraocular movements are intact. Ears, nose, mouth and throat: mucosa moist. Cardiovascular: Regular, Normal peripheral perfusion. Respiratory: Lungs are clear to auscultation, respirations are non-labored, breath sounds are equal, Symmetrical chest wall expansion. Gastrointestinal: Soft, Nontender, Non distended Musculoskeletal: Normal ROM, no deformity. Neurological: Alert and oriented, No focal neurological deficit observed. Psychiatric: Cooperative, appropriate mood & affect. Course 2 Vital Signs: Vital signs: Vital Signs Temperature 98.3 F 05/24/24 16:20 Pulse Rate 124 H 05/24/24 20:57 Respiratory Rate 18 05/24/24 20:51 Blood Pressure 101/68 05/24/24 19:58 Pulse Oximetry 90 05/24/24 20:51 Oxygen Delivery Me thod Room Air 05/24/24 20:51 Fraction of Inspir ed Oxygen 21 05/24/24 20:51 MDM - SOB/Dyspnea Medical Decision Making Differential diagnosis for patient with shortness of breath includes but is not limited to and based on the above HPI, review of systems and physical exam: Pneumonia. Bronchitis. Asthma or COPD with acute exacerbation. Acute coronary syndrome / AK. Pulmonary embolism. Anxiety. Congestive heart failure. Viral infections including influenza and Covid-19. Atrial fibrillation. Anxiety. Pleural effusion. Pneumothorax. Orders placed to evaluate differential diagnosis based on the above differential, HPI and physical exam Chest x-ray:. There is some patchy right sided infiltrate. No obvious mucous plugging. This was reviewed and interpreted by myself the emergency room physician. I also reviewed the radiology report. Lab Review: Laboratory results were reviewed and interpreted by myself the emergency room physician. White count is again quite elevated at 30,000. Hemoglobin is stable at 13. Platelets are little high at 566. BUN and creatinine are normal at 13 and 0.3. Expanded respiratory panel was negative. CT of the chest was attempted but was not performed secondary to anxiety and shortness of breath when the patient tried to lay flat. I reviewed the patient's medical record. Reexamination: Patient's oxygen saturations have been borderline as he is been here on his BiPAP. His heart rate is up a little bit over his baseline. His blood pressure is around his baseline. He is had no altered mental status but he is becoming more anxious. Discussed all the findings with he and his . We have offered to transfer if they would like to so they can go somewhere with pulmonary and critical care but they rather stay here initially and if things worsen they can transfer. Consultation: I spoke with Dr. Diaz who is on-call for the hospitalist service. He agrees to admission. He is seeing the patient here in the emergency room and we are admitting to the ICU. Assessment and plan: Pneumonia ALS Respiratory distress Chronic respiratory failure ?IV Ativan, IV Decadron, IV meropenem and linezolid for possible sepsis ? Breathing treatments ? 1 L normal saline bolus. This is close to 30 mL/kg bolus and with the fluid shortage I will give this initial and the hospitalist can decide if we need more. Borderline sepsis. His lactate is only 2. CRP is normal. Possible sepsis: -1 L normal saline bolus. As above. -Broad-spectrum antibiotics were administered. -Sepsis quality measures. -Lactic acid with a reflex was ordered. -Blood cultures were ordered. -I discussed the patient with the hospitalist on-call who is admitting the patient. - Discussed findings and plan with patient. Answered any questions. - All laboratory values were reviewed and interpreted personally by myself, the ER physician - All imaging was reviewed and interpreted personally by myself, the ER physician. - Evaluation and treatment of this problem were appropriate in the emergency setting Critical care -I spent a total of >35 minutes of critical care time managing the patient, independent of any other practitioner. -The time involved in the performance of separately reportable procedures was not counted towards critical care time. Lab Data 05/24/24 17:37 05/24/24 17:37 Labs/Radiology: Radiology Impressions Chest X-Ray 05/24/24 16:59 IMPRESSION: Bronchial wall thickening with small infiltrates right lung base. Laboratory Results WBC 30.25 10^3/uL (3.29-11.43) H* 05/24/24 17:37 RBC 4.77 10^6/uL (3.85-5.65) 05/24/24 17:37 Hgb 13.40 g/dL (11.27-16.99) 05/24/24 17:37 Hct 44.3 % (37-53) 05/24/24 17:37 MCV 92.9 fl (82-101) 05/24/24 17:37 MCH 28.1 pg (27-33) 05/24/24 17:37 MCHC 30.2 g/dL (30-55) 05/24/24 17:37 RDW 16.1 % (12.1-15.1) H 05/24/24 17:37 Plt Count 566 10^3/cmm (157-399) H 05/24/24 17:37 MPV 10.3 fL (7.4-10.4) 05/24/24 17:37 Neut % (Auto) 92.6 % 05/24/24 17:37 Lymph % (Auto) 2.9 % 05/24/24 17:37 Whitfield % (Auto) 3.6 % 05/24/24 17:37 Eos % (Auto) 0.1 % 05/24/24 17:37 Baso % (Auto) 0.2 % 05/24/24 17:37 Neut # (Auto) 28.01 10^3/uL (1.8-7.7) H 05/24/24 17:37 Lymph # (Auto) 0.9 10^3/uL (0.8-4.8) 05/24/24 17:37 Whitfield # (Auto) 1.1 10^3/uL (0.2-0.9) H 05/24/24 17:37 Eos # (Auto) 0.0 10^3/uL (0.0-0.8) 05/24/24 17:37 Baso # (Auto) 0.1 10^3/uL (0.0-0.1) 05/24/24 17:37 Nucleated RBC % (auto) 0 % 05/24/24 17:37 Nucleated RBCs # 0.0 /100WBC 05/24/24 17:37 Specimen Type Arterial 05/24/24 20:28 Sample Site Brachial, left 05/24/24 20:28 ABG pH 7.43 (7.35-7.45) 05/24/24 20:28 ABG pCO2 46.0 mmHg (35-45) H 05/24/24 20:28 ABG pO2 63.0 mmHg (80.0-100.0) L 05/24/24 20:28 ABG PO2/FiO2 Ratio 300 05/24/24 20:28 ABG HCO3 30.4 mmol/L (22-26) H 05/24/24 20:28 ABG O2 Saturation 91.9 05/24/24 20:28 ABG Base Excess 5.3 mmol/L (-2.0-2.0) H 05/24/24 20:28 Doni Test N/a 05/24/24 20:28 A-a O2 Gradient 4.0 mmHg (5-10) L 05/24/24 20:28 Hematocrit 36.8 % (42-52) L 05/24/24 20:28 Hgb O2 Saturation 90.2 % (95-100) L 05/24/24 20:28 Carboxyhemoglobin 1.0 %THgb (0.4-20.1) 05/24/24 20:28 Methemoglobin 0.8 % (0.4-1.5) 05/24/24 20:28 Total Hemoglobin 12.0 g/dL (14-18) L 05/24/24 20:28 Sodium 139.0 mmol/L (131-143) 05/24/24 20:28 Potassium 3.9 mmol/L (3.5-5.0) 05/24/24 20:28 Glucose 164.0 mg/dL (70-115) H 05/24/24 20:28 Ionized Calcium 1.2 mmol/L (1.1-1.4) 05/24/24 20:28 O2 Delivery Device Bipap 05/24/24 20:28 FiO2 21.0 % 05/24/24 20:28 Shift Mgr ID Ed 05/24/24 20:28 Sodium 136 mmol/L (136-145) 05/24/24 17:37 Potassium 4.6 mmol/L (3.5-5.1) 05/24/24 17:37 Chloride 95 mmol/L (98-107) L 05/24/24 17:37 Carbon Dioxide 28 mmol/L (22-29) 05/24/24 17:37 Anion Gap 17.6 (5-19) 05/24/24 17:37 BUN 12 mg/dL (6-20) 05/24/24 17:37 Creatinine 0.3 mg/dL (0.7-1.2) L 05/24/24 17:37 GFR Calculation 313.6 mL/min (90-130) H 05/24/24 17:37 Glucose 89 mg/dL (65-115) 05/24/24 17:37 Calculated Osmolality 281 mOsm/kg (285-295) L 05/24/24 17:37 Lactic Acid 2.0 mmol/L (0.5-2.2) 05/24/24 17:37 Calcium 9.2 mg/dL (8.5-10.5) 05/24/24 17:37 Total Bilirubin 0.2 mg/dL (0.15-1.2) 05/24/24 17:37 AST 20 U/L (0-40) 05/24/24 17:37 ALT 15 U/L (0-41) 05/24/24 17:37 Alkaline Phosphatase 95 U/L (40-130) 05/24/24 17:37 C-Reactive Protein 148.3 mg/L (0.0-4.9) H 05/24/24 17:37 C-Reactive Protein Cancelled 05/24/24 17:37 Total Protein 7.4 g/dL (6.6-8.7) 05/24/24 17:37 Albumin 3.9 g/dL (3.5-5.2) 05/24/24 17:37 Globulin 3.5 g/dL (1.3-4.6) 05/24/24 17:37 Adenovirus (PCR) Not detected (NOT DETECT) 05/24/24 18:48 C. pneumoniae DNA (PCR) Not detected (NOT DETECT) 05/24/24 18:48 Coronavirus 229E (PCR) Not detected (NOT DETECT) 05/24/24 18:48 Human Metapneumovir PCR Not detected (NOT DETECT) 05/24/24 18:48 Influenza A (H1) PCR Not detected (NOT DETECT) 05/24/24 18:48 Influ A (H1/09) PCR Not detected (NOT DETECT) 05/24/24 18:48 Influenza A (H3) PCR Not detected (NOT DETECT) 05/24/24 18:48 Influenza Type A (PCR) Not detected (NOT DETECT) 05/24/24 18:48 Influenza Type B (PCR) Not detected (NOT DETECT) 05/24/24 18:48 M. pneumoniae (PCR) Not detected (NOT DETECT) 05/24/24 18:48 Parainfluenza 1 (PCR) Not detected (NOT DETECT) 05/24/24 18:48 Parainfluenza 2 (PCR) Not detected (NOT DETECT) 05/24/24 18:48 Parainfluenza 3 (PCR) Not detected (NOT DETECT) 05/24/24 18:48 Parainfluenza 4 (PCR) Not detected (NOT DETECT) 05/24/24 18:48 RSV Type A (PCR) Not detected (NOT DETECT) 05/24/24 18:48 RSV Type B (PCR) Not detected (NOT DETECT) 05/24/24 18:48 Entero/Rhino (PCR) Not detected (NOT DETECT) 05/24/24 18:48 SARS-CoV-2 (PCR) Not detected (NOT DETECT) 05/24/24 18:48 All radiology interpretation(s) finalized by discharge Discharge Plan Discharge Patient Disposition: Admitted As Inpatient Clinical Impression: ALS (amyotrophic lateral sclerosis), Pneumonia, Chronic hypoxemic respiratory failure, Respiratory distress, Anxiety Condition: Stable Coding Level of Care 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
--- NOTE | 2024-05-24 20:07 | PM.HP ---
Providers/Chief Complaint Primary Care Provider: MORENO Ferrara Chief Complaint: Difficulty breathing History of Present Illness Silvestre Espinosa is a 53 year old male with multiple comorbid conditions such as ulcerative colitis on Entyvio infusions, recurrent C. difficile, ALS wheelchair-bound, PEG tube feeding 2Cal, in March had bronchoscopy done which showed Staphylococcus species, finished Zyvox and Zosyn treatment, received fecal transplant therapy at [facility] as per the family, has seen Dr. Keene and patient is on fidDoxymycin presented today with fever, respiratory distress. Spouse is at the bedside stating that for the last 2 days Jeremiah has been spiking fever up to 102, he has been compliant with his AVAPS, chest vest twice daily, he was started on cefdinir as per ID recommendations without any significant response hence decided to come to the hospital for further evaluation. Previous CT scan has showed infiltrate right greater than left. At the time of my evaluation ABG were requested with relative hypoxia with compensated pH with above 90% saturation Patient is tachycardic heart rate 125, as per the spouse heart rate baseline is 110 Patient had another chest imaging done at the [place] which showed changes concerning to bronchiectasis, x-ray in the ER consistent with bronchitis we are requesting chest CT after getting Ativan Patient is septic with fever tachycardia tachypnea leukocytosis, has received Broad-spectrum antibiotics, As per the spouse they think CHF is under control because he is only experiencing 1 episode of stool every day instead of diarrhea Mr. Espinosa was supposed to start first dose of tapering regimen of fidoxymycin today after twice a day regimen for 10 days Review of Systems Const: Reports: fever(s), chills and body aches Eyes: Denies: change in vision ENMT: Reports: throat pain Card: Denies: chest pain Resp: Reports: dyspnea GI: Denies: abdominal pain Medications/Allergies Home Medications Medication Instructions Recorded Confirmed Last Taken Type sertraline 20 mg/mL oral 50 mg feeding tube BEDTIME 05/16/23 05/12/24 05/11/24 20:00 History concentrate (Zoloft) cetirizine 1 mg/mL oral solution 10 mg PO BEDTIME 10/16/23 05/12/24 05/11/24 20:00 History famotidine 40 mg/5 mL (8 mg/mL) 20 mg PO BID 12/13/23 05/12/24 05/11/24 20:00 History oral suspension gabapentin 250 mg/5 mL oral 500 mg PO BEDTIME 12/13/23 05/12/24 05/11/24 20:00 History solution acetaminophen 500 mg/15 mL oral 1,000 mg feeding tube Q4-5H PRN 01/08/24 05/12/24 05/11/24 20:00 History liquid Fever guaifenesin 100 mg/5 mL oral 600 mg PO BID 01/08/24 05/12/24 05/11/24 20:00 History liquid (Jing-Tussin) nortriptyline 10 mg/5 mL oral 30 mg feeding tube BEDTIME 01/08/24 05/12/24 05/11/24 20:00 History solution riluzole 50 mg tablet 50 mg PO BID 01/08/24 05/12/24 05/11/24 20:00 History scopolamine base 1 mg over 3 days 0.5 patch transdermal Q2D 01/08/24 05/12/24 01/08/24 09:00 History transdermal patch vancomycin 50 mg/mL oral solution 125 mg (2.5 mL) PO DAILY PRN c 02/22/24 05/12/24 Unknown Rx diff 7 days #80 mL Chlorpheniramine Allergy 4 mg peg-tube DAILY 05/12/24 05/12/24 05/11/24 08:00 History Singulair 10 mg peg-tube DAILY 05/12/24 05/12/24 05/11/24 08:00 History fidaxomicin 200 mg tablet (Dificid) 200 mg feeding tube BID #30 tabs 05/24/24 Unknown Rx Allergies Allergy/AdvReac Type Severity Reaction Status Date / Time No Known Allergies Allergy Verified 02/13/24 12:35 PFSH Acute PFSH: Medical History (Updated 05/24/24 @ 21:41 by Raymundo Diaz MD) 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 difficile treatment D-dimer, elevated Multiple tracheobronchial mucus plugs Weak cough At risk for aspiration Left lower lobe consolidation Recurrent pneumonia SI (sacroiliac) pain Anemia of chronic disease Depression Peripheral neuropathy Fracture of femoral neck, right Chronic, nondisplaced, for non operative management to date, follows with [facility] Small bowel obstruction 06/08 C. difficile enteritis Ulcerative (chronic) enterocolitis ALS (amyotrophic lateral sclerosis) Diagnosed in 2019 Surgical History History of oral surgery History of esophageal surgery Family History Denies family history of Diabetes Hypertension Social History Smoking and tobacco/nicotine status: never used tobacco/nicotine Alcohol intake: never Substance/Drug Use: never Vitals/I&O/Wt Last Vital Signs Temp 98.3 F 05/24/24 16:20 Pulse 128 H 05/24/24 19:58 Resp 20 H 05/24/24 19:58 BP 101/68 05/24/24 19:58 Pulse Ox 91 05/24/24 19:58 O2 Del Method BiPAP 05/24/24 19:58 Physical Exam Narrative: Wheelchair-bound PEG tube in place Currently on AVAPS Patient has significant diaphragmatic paralysis not able to produce enough axial pressure to produce voice tone S1, S2 tachycardia On AVAPS Tidal volume 500 PIP 17-19 Lower extremity no significant swelling Abdomen is soft Data 05/24/24 17:37 05/24/24 17:37 Micro: Microbiology 05/24/24 17:38 Blood Culture - Preliminary Blood SPECIMEN COLLECTED 05/24/24 17:37 Blood Culture - Preliminary Blood SPECIMEN COLLECTED A&P Assessment and plan (1) S/P fecal transplant: (2) Recurrent Clostridioides difficile diarrhea: (3) Sepsis: (4) ALS (amyotrophic lateral sclerosis): (5) Pneumonia: (6) Recurrent aspiration pneumonia: (7) Acute and chronic respiratory failure: (8) Chronic hypoxemic respiratory failure: (9) Respiratory distress: (10) Sinus tachycardia: Plan Sepsis Criteria met with fever tachypnea tachycardia leukocytosis High CRP Source seems to be a recurrent infection with underlying possible bronchiectasis Patient had received steroids broad-spectrum antibiotics and 1 L IV fluid Blood and urine culture obtained, I do not think patient will be able to produce sputum for culture Recent bronchoscopy shows Staphylococcus species X-ray consistent with bronchitis however presentation is consistent with bronchiectasis with recurrent pneumonia Continue DuoNeb Mucomyst chest vest physiotherapy I would not use steroids for now Anticipating worsening of leukocytosis in the morning For MRSA coverage would use linezolid, and for antipseudomonal coverage would use cefepime and levofloxacin Admit to ICU Close respiratory status monitoring Patient is full code Recurrent C. difficile Patient is bound to start tapering regimen of fidoxymycin, which is 1 tablet daily patient has already finished 10 days of twice daily regimen 1 stool per day as per the family Ulcerative colitis: Patient has recently received Entyvio infusion, spouse was questioning whether there is some association with immunosuppressant with Entyvio they have already discussed that with ID Dr. Keene Full code PEG tube feeding patient received organic diet pouch along TwoCal, spouse is planning to bring in tube feeding regimen from home which I would allow to be continued Attestations Medical Necessity Statement*: More than 2 midnights anticipated Diagnoses S/P fecal transplant Z92.89 Recurrent Clostridioides difficile diarrhea A04.71 Sepsis A41.9 ALS (amyotrophic lateral sclerosis) G12.21 Pneumonia J18.9 Recurrent aspiration pneumonia J69.0 Acute and chronic respiratory failure J96.20 Chronic hypoxemic respiratory failure J96.11 Respiratory distress R06.03 Sinus tachycardia R00.0
[2024-05-24 20:38] LABS: ABG PH Result 7.43 (7.35-7.45); Arterial Blood Gas Hematocrit 36.8 % (42-52); Base Excess ABG 5.3 mmol/L (-2.0-2.0); Blood Gas Sample Type Arterial; HCO3 ABG 30.4 mmol/L (22-26); HGB O2 Sat 90.2 % (95-100); Ionized Calcium Level - ABG 1.2 mmol/L (1.1-1.4); Methemoglobin 0.8 % (0.4-1.5); Oxygen Saturation ABG 91.9; Potassium Level - ABG 3.9 mmol/L (3.5-5.0)
[2024-05-24 20:39] LABS: Blood Gas Operator Identificat ED; Blood Gas Sample Site Brachial, left; Oxygen Device BIPAP; PO2 FiO2 Ratio Arterial Blood 300
[2024-05-24 20:44] LABS: Adenovirus Not Detected (NOT DETECT); Chlamydia Pneumoniae Not Detected (NOT DETECT); Coronavirus 229E,HKU1,NL63,OC4 Not Detected (NOT DETECT); Human Metapneumovirus Not Detected (NOT DETECT); Human Rhinovirus/Enterovirus Not Detected (NOT DETECT); Influenza A Not Detected (NOT DETECT); Influenza A H1 Not Detected (NOT DETECT); Influenza A H1-2009 Not Detected (NOT DETECT); Influenza A H3 Not Detected (NOT DETECT); Influenza B Not Detected (NOT DETECT); Mycoplasma Pneumoniae Not Detected (NOT DETECT); Parainfluenza Virus Type 1 Not Detected (NOT DETECT); Parainfluenza Virus Type 2 Not Detected (NOT DETECT); Parainfluenza Virus Type 3 Not Detected (NOT DETECT); Parainfluenza Virus Type 4 Not Detected (NOT DETECT); Respiratory Syncytial Virus A Not Detected (NOT DETECT); Respiratory Syncytial Virus B Not Detected (NOT DETECT); SARS-COV-2 Not Detected (NOT DETECT)
[2024-05-24] MEDS: albuterol 2.5 mg/3 mL Neb INHALATION (20:48)
[2024-05-24] MEDS: LORazepam 2 mg/mL INJ 1 mL 0.5 MG IVP (21:30)
[2024-05-24 21:49] LABS: Procalcitonin 0.14 ng/mL (0-0.5)
[2024-05-24] MEDS: meropenem 500 mg SDV IVP (22:27)
[2024-05-24] MEDS: linezolid premix 600 MG/300 ML PREMIX 300 MG IV (22:29)
[2024-05-24] MEDS: sodium chloride 0.9% 1,000 ML 999 ML IV (22:29)
[2024-05-24] MEDS: dexamethasone 10 mg/mL INJ IVP (22:29)
[2024-05-24] MEDS: sodium chloride 0.9% 500 ML IV (23:56)
[2024-05-25] VITALS (53 sets, daily range): BP systolic 90–130; BP diastolic 64–90; PULSE 87–132; RESP 16–37; TEMP 36.9–37.5; O2SAT 84–98
[2024-05-25] MEDS: enoxaparin 40 mg/0.4 mL Syringe SUBCUT ×2 (00:18→22:15)
[2024-05-25] MEDS: AZITHROMYCIN ADD-Vantage 500 MG in 0.9% NaCl ADD-Vantage 250 ML 250 MG IV (00:30)
[2024-05-25] MEDS: cefepime 2,000 mg SDV 2000 MG IV ×3 (00:42→23:42)
[2024-05-25] MEDS: levofloxacin-dextrose 5 % 750 MG/150 ML PREMIX 100 MG IV ×2 (00:44→22:07)
[2024-05-25] MEDS: sodium chloride 0.9% 1,000 ML 75 ML IV (01:04)
[2024-05-25] MEDS: ipratropium-albuterol 3 mL Neb INHALATION ×4 (03:49→21:44)
[2024-05-25] MEDS: acetylcysteine 200 mg/mL MDV 10 mL 100 MG INHALATION ×4 (03:49→21:47)
[2024-05-25 04:57] LABS: Basophils % 0.2 %; Hematocrit 34.2 % (37-53); Lymphocytes # 0.4 10^3/uL (0.8-4.8); Mean Corpuscular HGB Conc 30.7 g/dL (30-55); Mean Corpuscular Hemoglobin 28.4 pg (27-33); Mean Corpuscular Volume 92.4 fl (82-101); Mean Platelet Volume 10.5 fL (7.4-10.4); Monocytes # 0.1 10^3/uL (0.2-0.9); Monocytes % 0.6 %; Neutrophils # 21.05 10^3/uL (1.8-7.7); Neutrophils % 96.8 %; Nucleated Red Blood Cells % 0 %; Platelet Count 536 10^3/cmm (157-399); White Blood Count 21.73 10^3/uL (3.29-11.43)
[2024-05-25 05:21] LABS: Anion Gap 12.3 (5-19); Blood Urea Nitrogen 8 mg/dL (6-20); C Reactive Protein 131.4 mg/L (0.0-4.9); Calcium 8.1 mg/dL (8.5-10.5); Carbon Dioxide 27 mmol/L (22-29); Chloride 100 mmol/L (98-107); Glomerular Filtration Rate 500.7 mL/min (90-130); Glucose 133 mg/dL (65-115); Magnesium 1.8 mg/dL (1.7-2.3); Osmolality Calculated 280 mOsm/kg (285-295); Potassium 4.3 mmol/L (3.5-5.1); Sodium 135 mmol/L (136-145)
[2024-05-25 07:43] LABS: Bilirubin Urine Negative (Negative); Blood Urine Negative (Negative); Glucose Urine UA Negative (Normal); Ketones Urine Negative (Negative); Leukocyte Esterase Urine Negative (Negative); Nitrate Urine Negative (Negative); Protein Urine Trace (Negative); Urine Appearance Clear (CLEAR); Urine Color Dark Yellow (Yellow); pH Urine 5.5 (5-7)
[2024-05-25 07:48] LABS: Bacteria Urine None Seen /hpf; Hyaline Casts Urine 2.05 /lpf; RBC Urine 0-2 /hpf (0-2); Squamous Epithelial Cell Urine 0-5 /hpf (0-5); WBC Urine 0-5 /hpf (0-5)
[2024-05-25 07:56] LABS: Specific Gravity, Urine 1.035 (1.005-1.030)
[2024-05-25] MEDS: linezolid premix 600 MG/300 ML PREMIX 300 MG IV ×2 (08:43→20:55)
[2024-05-25] MEDS: guaiFENesin 100 mg/5 mL UDC 10 mL 600 MG PO ×2 (08:48→20:00)
[2024-05-25] MEDS: [UNRECOGNIZED DRUG - REMARK] 4 EACH PEG-TUBE (08:48)
[2024-05-25] MEDS: Singulair 10 MG 10 EACH PEG-TUBE (08:50)
[2024-05-25] MEDS: fidaxomicin 200 mg Tablet PO (08:50)
--- NOTE | 2024-05-25 09:35 | PC.NURSE ---
Per night nursing staff and patient, patients requested to administer scopolamine patch. Per patient, is bringing tube feeding from home. is to arrive at 1000.
--- NOTE | 2024-05-25 12:01 | P.PN_ITS ---
Subjective 2 Subjective: This morning he started to feel better compared to yesterday. Vitals/I&O/Wt Last Vital Signs Temp 98.9 F 05/25/24 08:30 Pulse 120 H 05/25/24 10:30 Resp 25 H 05/25/24 10:30 BP 101/68 05/25/24 10:00 Pulse Ox 90 05/25/24 10:30 O2 Del Method Room Air, Mechanical Ventilation 05/25/24 09:04 FiO2 21 05/25/24 03:58 05/24/24 05/25/24 05/25/24 22:59 06:59 14:59 Intake Total 2653.75 / 2653.75 300 / 300 Output Total 450 / 450 Balance 2653.75 / 2653.75 -150 / -150 Weight last 48 hrs Weight 47.4 kg Weight 46.901 kg Weight 47.627 kg Physical Exam 2 Const: COMMON NORMALS: patient oriented x3 and alert GENERAL APPEARANCE: c ooperative NUTRITIONAL APPEARANCE: underweight ORIENTATION/CONSCIOUSNESS: Yes awake HENMT: COMMON NORMALS: oropharynx normal OTHER: CPAP, nasal pillows. Neck/C-Spine: COMMON NORMALS: no JVD Resp: COMMON NORMALS: clear to auscultation bilaterally AUSCULTATION: clear to auscultation bilaterally Cardio: COMMON NORMALS: no JVD, regular rhythm, S1 normal heart sound present, S2 normal heart sound present and No murmurs present (Cardio) RHYTHM: regular rhythm HEART SOUNDS: S1 normal heart sound present and S2 normal heart sound present GI: COMMON NORMALS: Normal to inspection, nondistended, normoactive bowel sounds present, Soft to palpation and non-tender PALPATION: Yes Soft to palpation Extremity: COMMON NORMALS: no joint enlargement and no pedal edema OTHER: Sarcopenia. Neuro: COMMON NORMALS: patient oriented x3 and moves all extremities S ENSORIUM/ORIENTATION: Yes alert Skin: COMMON NORMALS: no rashes or lesions noted GENERAL SKIN EXAM: no rashes or lesions noted Data 05/25/24 04:04 05/25/24 04:04 Micro: Microbiology 05/24/24 17:38 Blood Culture - Preliminary Blood SPECIMEN COLLECTED 05/24/24 17:37 Blood Culture - Preliminary Blood SPECIMEN COLLECTED A&P Assessment and plan (1) S/P fecal transplant: (2) Recurrent Clostridioides difficile diarrhea: (3) Sepsis: (4) ALS (amyotrophic lateral sclerosis): (5) Pneumonia: (6) Recurrent aspiration pneumonia: (7) Acute and chronic respiratory failure: (8) Chronic hypoxemic respiratory failure: (9) Respiratory distress: (10) Sinus tachycardia: Plan Sepsis: Reviewed vitals, CBC, ABG, CMP, D-dimer, UA, respiratory viral panel, chest x-ray, chest CT.Noted persistent multifocal pneumonia most significant in the right middle and lower lobes. Discussed with him. Leukocytosis today is suggestive improvement down to 21. Still tachycardia 125. He is maintaining blood pressure. No increased output from colostomy. Continue treatment of pneumonia with broad-spectrum antibiotics. He is transitioned to taper dose fidaxomicin, but discussed with him in case of worsening ostomy output, increasing leukocytosis, abdominal symptoms or other suggestion of recurrence of C. difficile we may have to restart therapeutic dose. He notes understanding and agreement. Obtain sputum culture if able. Add urine bacterial antigens, urine Legionella antigen. Follow-up blood culture. She is resumed on tube feeds. Added water flushes. Monitor intake and output. Continue cefepime, monitor for risk of encephalopathy, linezolid, monitor for risk of agranulocytosis, Levaquin. Monitor for risk of C. difficile recurrence. Discussed with RT. Mucomyst dose to be adjusted to match with DuoNebs. Chest vest is ordered. Perform as able leaving enough time after tube feeding. With acute respiratory failure with tachypnea 26-30, tachycardia 120, with pneumonia, BiPAP with ALS. Continue treatment in ICU for now. Source seems to be a recurrent infection with underlying possible bronchiectasis Patient had received steroids broad-spectrum antibiotics and 1 L IV fluid Recent bronchoscopy shows Staphylococcus species X-ray consistent with bronchitis however presentation is consistent with bronchiectasis with recurrent pneumonia Continue DuoNeb Mucomyst chest vest physiotherapy I would not use steroids for now Anticipating worsening of leukocytosis in the morning For MRSA coverage would use linezolid, and for antipseudomonal coverage would use cefepime and levofloxacin Close respiratory status monitoring Patient is full code Recurrent C. difficile: He is transitioned to taper dose with fidaxomicin, but discussed with him in case of worsening ostomy output, increasing leukocytosis, abdominal symptoms or other suggestion of recurrence of C. difficile we may have to restart therapeutic dose. He notes understanding and agreement. Patient is bound to start tapering regimen of fidoxymycin, which is 1 tablet daily patient has already finished 10 days of twice daily regimen 1 stool per day as per the family Ulcerative colitis: Patient has recently received Entyvio infusion, spouse was questioning whether there is some association with immunosuppressant with Entyvio they have already discussed that with ID Dr. Keene Hypomagnesemia: Mg 1.8. Supplement. Recheck level. Full code PEG tube feeding patient received organic diet pouch along [employer], spouse is planning to bring in tube feeding regimen from home which I would allow to be continued Attestations 2 Medical Necessity Statement*: Continue admission for assessment management of sepsis, pneumonia and a gentleman with recurrent C. difficile infection, ALS, ulcerative colitis on Entyvio. Diagnoses S/P fecal transplant Z92.89 Recurrent Clostridioides difficile diarrhea A04.71 Sepsis A41.9 ALS (amyotrophic lateral sclerosis) G12.21 Pneumonia J18.9 Recurrent aspiration pneumonia J69.0 Acute and chronic respiratory failure J96.20 Chronic hypoxemic respiratory failure J96.11 Respiratory distress R06.03 Sinus tachycardia R00.0
[2024-05-25] MEDS: SCOPOLAMINE 1 EACH TRANSDERMA (12:33)
--- NOTE | 2024-05-25 16:29 | PC.NURSE ---
Verified tube feeding schedule and amounts with Dr. Calvin and patients . See message to nurse order.
[2024-05-25] MEDS: ALPRAZolam 0.5 mg Tablet PO (16:36)
[2024-05-25] MEDS: magnesium sulfate premix 2 GM/50 ML PIGGYBACK IV (17:39)
--- NOTE | 2024-05-25 18:00 | PC.NURSE ---
Delay in administration of guaifenesin and Riluzole due to patient preference, does not want to take them at 1800, wants to take them with 2100 medications.
[2024-05-25] MEDS: CETIRIZINE 1 MG/ML 10 EACH PEG-TUBE (20:09)
[2024-05-25] MEDS: GABAPENTIN 250 MG/5 ML 500 EACH PO (20:41)
[2024-05-25] MEDS: SERTRALINE 20 MG/ML 50 EACH PEG-TUBE (20:44)
[2024-05-26] VITALS (32 sets, daily range): BP systolic 91–130; BP diastolic 61–84; PULSE 72–122; RESP 15–28; TEMP 36.3–36.7; O2SAT 93–99
[2024-05-26] MEDS: acetylcysteine 200 mg/mL MDV 10 mL 100 MG INHALATION ×4 (03:06→20:17)
[2024-05-26 04:35] LABS: Basophils % 0.2 %; Eosinophils # 0.2 10^3/uL (0.0-0.8); Eosinophils % 1.1 %; Hematocrit 31.3 % (37-53); Lymphocytes # 2.5 10^3/uL (0.8-4.8); Lymphocytes % 15.8 %; Mean Corpuscular HGB Conc 30.7 g/dL (30-55); Mean Corpuscular Hemoglobin 28.3 pg (27-33); Mean Corpuscular Volume 92.3 fl (82-101); Mean Platelet Volume 10.6 fL (7.4-10.4); Monocytes # 1.1 10^3/uL (0.2-0.9); Monocytes % 6.7 %; Neutrophils # 12.01 10^3/uL (1.8-7.7); Neutrophils % 75.9 %; Nucleated Red Blood Cells % 0 %; Platelet Count 556 10^3/cmm (157-399); Red Blood Count 3.39 10^6/uL (3.85-5.65); Red Cell Distribution Width 16.2 % (12.1-15.1); White Blood Count 15.82 10^3/uL (3.29-11.43)
[2024-05-26 04:56] LABS: Blood Urea Nitrogen 8 mg/dL (6-20); Calcium 8.1 mg/dL (8.5-10.5); Carbon Dioxide 29 mmol/L (22-29); Chloride 103 mmol/L (98-107); Glomerular Filtration Rate 173.9 mL/min (90-130); Glucose 108 mg/dL (65-115); Magnesium 1.9 mg/dL (1.7-2.3); Osmolality Calculated 291 mOsm/kg (285-295); Sodium 141 mmol/L (136-145)
[2024-05-26 05:00] LABS: Anion Gap 12.6 (5-19); Potassium 3.6 mmol/L (3.5-5.1)
[2024-05-26] MEDS: ipratropium-albuterol 3 mL Neb INHALATION ×3 (08:40→20:18)
[2024-05-26] MEDS: [UNRECOGNIZED DRUG - REMARK] 4 EACH PEG-TUBE (08:45)
[2024-05-26] MEDS: Singulair 10 MG 10 EACH PEG-TUBE (08:45)
[2024-05-26] MEDS: linezolid premix 600 MG/300 ML PREMIX 300 MG IV ×2 (08:46→21:12)
[2024-05-26] MEDS: guaiFENesin 100 mg/5 mL UDC 10 mL 600 MG PO ×3 (08:46→21:13)
[2024-05-26] MEDS: ALPRAZolam 0.5 mg Tablet PO (08:47)
--- NOTE | 2024-05-26 11:05 | PC.NURSE ---
Updated patients via telephone and updated patient on room assignment [id number].
--- NOTE | 2024-05-26 12:01 | PC.NURSE ---
Patient and transferred self via personal motorized wheelchair using home O2 machine. All belongings with patient. Home medications at bedside. Paper chart left with staff at front end engineer, [place] nurse Olivia at bedside with patient.
[2024-05-26] MEDS: cefepime 2,000 mg SDV 2000 MG IV (12:20)
--- NOTE | 2024-05-26 14:32 | P.PN_ITS ---
Subjective 2 Subjective: He feels that he is further improving today. Breathing is improving. Tube feeds and water flushes have been adjusted to the way he takes them at home. Vitals/I&O/Wt Last Vital Signs Temp 97.4 F L 05/26/24 12:00 Pulse 122 H 05/26/24 13:55 Resp 24 H 05/26/24 13:55 BP 120/78 05/26/24 12:00 Pulse Ox 94 05/26/24 13:55 O2 Del Method Room Air, BiPAP 05/26/24 13:55 FiO2 21 05/26/24 02:55 05/25/24 05/26/24 05/26/24 22:59 06:59 14:59 Intake Total 950 / 2876.25 150 / 3026.25 780 / 780 Output Total 700 / 1750 Balance 250 / 1126.25 150 / 1276.25 780 / 780 Weight last 48 hrs Weight 46.901 kg Weight 47.4 kg Weight 46.901 kg Weight 47.627 kg Physical Exam 2 Const: COMMON NORMALS: patient oriented x3 and alert GENERAL APPEARANCE: c ooperative NUTRITIONAL APPEARANCE: underweight ORIENTATION/CONSCIOUSNESS: Yes awake HENMT: COMMON NORMALS: oropharynx normal OTHER: CPAP, nasal pillows. Neck/C-Spine: COMMON NORMALS: no JVD Resp: COMMON NORMALS: clear to auscultation bilaterally AUSCULTATION: clear to auscultation bilaterally OTHER: Improved mild rhonchi. Cardio: COMMON NORMALS: no JVD, regular rhythm, S1 normal heart sound present, S2 normal heart sound present and No murmurs present (Cardio) RHYTHM: regular rhythm HEART SOUNDS: S1 normal heart sound present and S2 normal heart sound present GI: COMMON NORMALS: Normal to inspection, nondistended, normoactive bowel sounds present, Soft to palpation and non-tender PALPATION: Yes Soft to palpation Extremity: COMMON NORMALS: no joint enlargement and no pedal edema OTHER: Sarcopenia. Neuro: COMMON NORMALS: patient oriented x3 and moves all extremities S ENSORIUM/ORIENTATION: Yes alert Skin: COMMON NORMALS: no rashes or lesions noted GENERAL SKIN EXAM: no rashes or lesions noted Data 05/26/24 04:10 05/26/24 04:10 Micro: Microbiology 05/25/24 07:32 Legionella Urinary Antigen - Final Urine,Clean Catch 05/24/24 17:38 Blood Culture - Preliminary Blood NEGATIVE TO DATE 05/24/24 17:37 Blood Culture - Preliminary Blood NEGATIVE TO DATE A&P Assessment and plan (1) S/P fecal transplant: (2) Recurrent Clostridioides difficile diarrhea: (3) Sepsis: (4) ALS (amyotrophic lateral sclerosis): (5) Pneumonia: (6) Recurrent aspiration pneumonia: (7) Acute and chronic respiratory failure: (8) Chronic hypoxemic respiratory failure: (9) Respiratory distress: (10) Sinus tachycardia: Plan Sepsis: Improving. Reviewed CBC, leukocytosis up to 15.8. Tachycardia today improved down to 108. Reviewed BMP, renal function is okay. Reviewed magnesium, 1.9. Continue to monitor on telemetry. Reviewed blood culture, so far negative. Reviewed Legionella antigen, negative. Obtain sputum culture if able. Follow bacterial antigens. Follow-up blood culture. Resumed on tube feeds, water flushes. Monitor intake and output. Continue cefepime, monitor for risk of encephalopathy, linezolid, monitor for risk of agranulocytosis, Levaquin. Monitor for risk of C. difficile recurrence. Guaifenesin dose adjusted to 3 times daily. Mucomyst dose to be adjusted to match with DuoNebs. Chest vest is ordered. Perform as able leaving enough time after tube feeding. As per infectious disease recommendation while on antibiotics continue with therapeutic dose of Dificid, dosing adjusted. Continue care on medical surgical floor. Pulmonary infection with underlying possible bronchiectasis Recent bronchoscopy shows Staphylococcus species X-ray consistent with bronchitis however presentation is consistent with bronchiectasis with recurrent pneumonia Continue DuoNeb Mucomyst chest vest physiotherapy I would not use steroids For MRSA coverage on linezolid, and for antipseudomonal coverage would use cefepime and levofloxacin Close respiratory status monitoring Patient is full code Recurrent C. difficile: While on antibiotics ID recommends therapeutic dose deficit. Adjusted. Once done with antibiotics if no sign of recurrence of C. difficile consider tapering regimen of fidoxymycin Ulcerative colitis: Patient has recently received Entyvio infusion, spouse was questioning whether there is some association with immunosuppressant with Entyvio they have already discussed that with ID Dr. Keene Hypomagnesemia: Reviewed, today magnesium 1.9. Supplement additional magnesium 1 g. Recheck level. Attestations 2 Medical Necessity Statement*: Continue admission for assessment management of sepsis, pneumonia in a gentleman with recurrent C. difficile infection, ALS, ulcerative colitis on Entyvio. and High MDM includes described risk of complication, morbidity or mortality of management as documented Diagnoses S/P fecal transplant Z92.89 Recurrent Clostridioides difficile diarrhea A04.71 Sepsis A41.9 ALS (amyotrophic lateral sclerosis) G12.21 Pneumonia J18.9 Recurrent aspiration pneumonia J69.0 Acute and chronic respiratory failure J96.20 Chronic hypoxemic respiratory failure J96.11 Respiratory distress R06.03 Sinus tachycardia R00.0
[2024-05-26] MEDS: magnesium sulfate premix 1 GM/100 ML PIGGYBACK IV (15:15)
[2024-05-26] MEDS: fidaxomicin 200 mg Tablet PO (21:11)
[2024-05-26] MEDS: GABAPENTIN 250 MG/5 ML 500 EACH PO (21:12)
[2024-05-26] MEDS: SERTRALINE 20 MG/ML 50 EACH PEG-TUBE (21:12)
[2024-05-26] MEDS: CETIRIZINE 1 MG/ML 10 EACH PEG-TUBE (21:12)
[2024-05-26] MEDS: acetaminophen 650 mg/20.3 mL UDC 1000 MG PEG-TUBE (21:53)
[2024-05-26] MEDS: enoxaparin 40 mg/0.4 mL Syringe SUBCUT (21:54)
[2024-05-26] MEDS: levofloxacin-dextrose 5 % 750 MG/150 ML PREMIX 100 MG IV (22:17)
[2024-05-27] VITALS (9 sets, daily range): BP systolic 90–120; BP diastolic 54–75; PULSE 61–117; RESP 17–20; TEMP 36.3–36.7; O2SAT 92–96
[2024-05-27] MEDS: cefepime 2,000 mg SDV 2000 MG IV ×2 (00:34→13:57)
[2024-05-27] MEDS: ipratropium-albuterol 3 mL Neb INHALATION ×2 (02:33→08:16)
[2024-05-27] MEDS: acetylcysteine 200 mg/mL MDV 10 mL 100 MG INHALATION (02:33)
[2024-05-27 05:55] LABS: Basophils # 0.1 10^3/uL (0.0-0.1); Basophils % 0.7 %; Eosinophils # 0.4 10^3/uL (0.0-0.8); Eosinophils % 4.5 %; Hematocrit 32.8 % (37-53); Lymphocytes # 1.9 10^3/uL (0.8-4.8); Lymphocytes % 23.2 %; Mean Corpuscular HGB Conc 31.4 g/dL (30-55); Mean Corpuscular Hemoglobin 28.7 pg (27-33); Mean Corpuscular Volume 91.4 fl (82-101); Mean Platelet Volume 10.3 fL (7.4-10.4); Monocytes # 0.7 10^3/uL (0.2-0.9); Monocytes % 8.4 %; Neutrophils # 5.27 10^3/uL (1.8-7.7); Nucleated Red Blood Cells % 0 %; Platelet Count 621 10^3/cmm (157-399); Red Blood Count 3.59 10^6/uL (3.85-5.65); White Blood Count 8.37 10^3/uL (3.29-11.43)
[2024-05-27 06:00] LABS: Anion Gap 13.2 (5-19); Blood Urea Nitrogen 10 mg/dL (6-20); Calcium 8.1 mg/dL (8.5-10.5); Carbon Dioxide 31 mmol/L (22-29); Chloride 100 mmol/L (98-107); Creatinine Clr Calc Pharmacy 295.4194; Glomerular Filtration Rate 500.7 mL/min (90-130); Glucose 101 mg/dL (65-115); Osmolality Calculated 289 mOsm/kg (285-295); Potassium 4.2 mmol/L (3.5-5.1); Sodium 140 mmol/L (136-145)
[2024-05-27 06:51] LABS: Magnesium 1.8 mg/dL (1.7-2.3)
[2024-05-27] MEDS: guaiFENesin 100 mg/5 mL UDC 10 mL 600 MG PO ×2 (09:08→14:45)
[2024-05-27] MEDS: fidaxomicin 200 mg Tablet PO (09:08)
[2024-05-27] MEDS: linezolid premix 600 MG/300 ML PREMIX 300 MG IV (09:08)
--- NOTE | 2024-05-27 09:27 | PC.CHAP ---
Pastoral Care Encounter/Spiritual Assessment Type of Contact [] Declined workforce staffing advisor visit [] Patient/Family/Request visit [] Outpatient visit [] Follow-up visit [] Physician referral [] Code/Alert [x] Routine visit [] Staff referral [] Actively dying [] Patient sleeping [] Family support [] [] Out of room [] Palliative care [] [x] Receiving care in room [] Pre-surgical visit [] Trauma [] Long length of stay [] ICU visit [] Other: Relational/Emotional Strength [] Patient feels connected with others/family/visitors/staff [] Distress [] Loneliness/isolation [] Abandonment Spirituality of Patient [] Person of Avis [] Attends Denominational of their Avis [] Believes in Prayer [] Reads Bible or Mormon materials [] There are Spiritual issues to be addressed Policy Writer Typist Interventions [] Prayer [] Active listening [] Non-anxious presence [] Spiritual/emotional support [] Crisis/trauma care [] Spiritual counseling [] Bereavement support [] Provided bereavement packet [] Provided Bible/devotional materials [] Provided toy/stuffed animal, coloring book to patient or family member [] Provided Communion [] Anointing/[place] [] Salvation [] Completed spiritual assessment [] Other: Impact on Illness or Injury [] Angry [] Fearful [] Anxious [] Often cries [] Exhaustion [] Unable to work [] Unable to attend scientology [] Unable to walk/stand [] Unable to read [] Unable to drive [] Unable to eat/drink [] Unable to sleep [] Unable to be with family [] Patient intubated [] Other: Summary Time spent with patient
[2024-05-27 12:29] LABS: MRSA PCR OZH (swab) NOT DETECTED (Negative)
--- NOTE | 2024-05-27 12:38 | PM.DCS ---
Discharge Providers Date of Admission: 05/24/24 20:44 Date of Discharge: May 27, 2024 Attending Provider at Admission: Raymundo Diaz MD Attending Provider at Discharge: Cole Contreras MD Primary Care Provider: MORENO Ferrara Diagnoses at Discharge Discharge Diagnosis (1) S/P fecal transplant: Status: Acute Permanent problem details: recurrent C. difficile treatment (2) Recurrent Clostridioides difficile diarrhea: Status: Acute (3) Sepsis: Status: Acute (4) ALS (amyotrophic lateral sclerosis): Status: Acute (5) Pneumonia: Status: Acute (6) Recurrent aspiration pneumonia: Status: Acute (7) Acute and chronic respiratory failure: Status: Acute (8) Chronic hypoxemic respiratory failure: Status: Acute (9) Respiratory distress: Status: Acute (10) Sinus tachycardia: Status: Acute Reason for Visit Reason for Visit: Difficulty breathing Brief History: History as per HPI: Silvestre Espinosa is a 53 year old male with multiple comorbid conditions such as ulcerative colitis on Entyvio infusions, recurrent C. difficile, ALS wheelchair-bound, PEG tube feeding 2Cal, in March had bronchoscopy done which showed Staphylococcus species, finished Zyvox and Zosyn treatment, received fecal transplant therapy at [facility] as per the family, has seen Dr. Keene and patient is on fidDoxymycin presented today with fever, respiratory distress. Spouse is at the bedside stating that for the last 2 days Jeremiah has been spiking fever up to 102, he has been compliant with his AVAPS, chest vest twice daily, he was started on cefdinir as per ID recommendations without any significant response hence decided to come to the hospital for further evaluation. Previous CT scan has showed infiltrate right greater than left. At the time of my evaluation ABG were requested with relative hypoxia with compensated pH with above 90% saturation Patient is tachycardic heart rate 125, as per the spouse heart rate baseline is 110 Patient had another chest imaging done at the [place] which showed changes concerning to bronchiectasis, x-ray in the ER consistent with bronchitis we are requesting chest CT after getting Ativan Patient is septic with fever tachycardia tachypnea leukocytosis, has received Broad-spectrum antibiotics, As per the spouse they think CHF is under control because he is only experiencing 1 episode of stool every day instead of diarrhea Mr. Hibbitts was supposed to start first dose of tapering regimen of fidoxymycin today after twice a day regimen for 10 days. Hospital Course Hospital Course Patient was admitted to the hospital further evaluation and management of sepsis in setting of aspiration pneumonia. He was started on broad-spectrum antibiotics along with atypical coverage. Concerns for C. difficile were low as he was already on fidaxomicin had not had any further worsening in his frequency or consistency of bowel movements than his usual. At first he was admitted to the ICU and was later transitioned over to surgical floor once stabilized. His oxygen requirements continued to taper down his back to his baseline CPAP dependence in setting of ALS. MRSA swab was checked to be negative. He has been discharged in hemodynamically stable condition back home on oral Levaquin for next 5 days. While he is on Levaquin he is to continue fidaxomicin at treatment dose of 20 mg twice daily and then transition to taper dose after completion of antibiotic course. He is to continue with strict n.p.o. and continue with tube feeds at his baseline. He has an appointment with his outpatient auto body worker on 05/28 which he has been advised to maintain. Physical Exam Const: COMMON NORMALS: patient oriented x3 and alert GENERAL APPEARANCE: cooperative NUTRITIONAL APPEARANCE: underweight ORIENTATION/CONSCIOUSNESS: Yes awake HENMT: COMMON NORMALS: oropharynx normal OTHER: CPAP, nasal pillows. Neck/C-Spine: COMMON NORMALS: no JVD Resp: COMMON NORMALS: clear to auscultation bilaterally AUSCULTATION: clear to auscultation bilaterally OTHER: Improved mild rhonchi. Cardio: COMMON NORMALS: no JVD, regular rhythm, S1 normal heart sound present, S2 normal heart sound present and No murmurs present (Cardio) RHYTHM: regular rhythm HEART SOUNDS: S1 normal heart sound present and S2 normal heart sound present GI: COMMON NORMALS: Normal to inspection, nondistended, normoactive bowel sounds present, Soft to palpation and non-tender PALPATION: Yes Soft to palpation Extremity: COMMON NORMALS: no joint enlargement and no pedal edema OTHER: Sarcopenia. Neuro: COMMON NORMALS: patient oriented x3 and moves all extremities SENSORIUM/ORIENTATION: Yes alert Skin: COMMON NORMALS: no rashes or lesions noted GENERAL SKIN EXAM: no rashes or lesions noted Discharge Data Studies Completed and Pending Completed Studies During Hospitalization Category Date Time Status CT chest con [id number] Stat Cat Scan 05/24/24 19:21 Completed XR chest 1V portable [id number] Stat Exams 05/24/24 16:59 Completed Pending at discharge Category Date Time Status Basic Metabolic Panel AM LABS Lab 05/28/24 04:00 Ordered Blood Culture Stat Lab 05/24/24 17:38 Results Complete Blood Count w/Auto AM LABS Lab 05/28/24 04:00 Ordered Sputum Culture and Gram Stain Routine Lab 05/27/24 10:32 Uncollected Radiology Impressions Chest X-Ray 05/24/24 16:59 IMPRESSION: Bronchial wall thickening with small infiltrates right lung base. Chest CT 05/24/24 19:21 IMPRESSION: Persistent multifocal pneumonia, most significant in the right middle and lower lobes. Laboratory Results WBC 8.37 10^3/uL (3.29-11.43) 05/27/24 05:14 RBC 3.59 10^6/uL (3.85-5.65) L 05/27/24 05:14 Hgb 10.30 g/dL (11.27-16.99) L 05/27/24 05:14 Hct 32.8 % (37-53) L 05/27/24 05:14 MCV 91.4 fl (82-101) 05/27/24 05:14 MCH 28.7 pg (27-33) 05/27/24 05:14 MCHC 31.4 g/dL (30-55) 05/27/24 05:14 RDW 16.0 % (12.1-15.1) H 05/27/24 05:14 Plt Count 621 10^3/cmm (157-399) H 05/27/24 05:14 MPV 10.3 fL (7.4-10.4) 05/27/24 05:14 Neut % (Auto) 63.0 % 05/27/24 05:14 Lymph % (Auto) 23.2 % 05/27/24 05:14 [place] % (Auto) 8.4 % 05/27/24 05:14 Eos % (Auto) 4.5 % 05/27/24 05:14 Baso % (Auto) 0.7 % 05/27/24 05:14 Neut # (Auto) 5.27 10^3/uL (1.8-7.7) 05/27/24 05:14 Lymph # (Auto) 1.9 10^3/uL (0.8-4.8) 05/27/24 05:14 [place] # (Auto) 0.7 10^3/uL (0.2-0.9) 05/27/24 05:14 Eos # (Auto) 0.4 10^3/uL (0.0-0.8) 05/27/24 05:14 Baso # (Auto) 0.1 10^3/uL (0.0-0.1) 05/27/24 05:14 Nucleated RBC % (auto) 0 % 05/27/24 05:14 Nucleated RBCs # 0.0 /100WBC 05/27/24 05:14 D-Dimer 0.90 ug/mLFEU (0-0.59) H 05/24/24 17:37 Specimen Type Arterial 05/24/24 20:28 Sample Site Brachial, left 05/24/24 20:28 ABG pH 7.43 (7.35-7.45) 05/24/24 20:28 ABG pCO2 46.0 mmHg (35-45) H 05/24/24 20:28 ABG pO2 63.0 mmHg (80.0-100.0) L 05/24/24 20:28 ABG PO2/FiO2 Ratio 300 05/24/24 20: ABG HCO3 30.4 mmol/L (22-26) H 05/24/24 20:28 ABG O2 Saturation 91.9 05/24/24 20:28 ABG Base Excess 5.3 mmol/L (-2.0-2.0) H 05/24/24 20:28 Doni Test N/a 05/24/24 20:28 A-a O2 Gradient 4.0 mmHg (5-10) L 05/24/24 20:28 Hematocrit 36.8 % (42-52) L 05/24/24 20:28 Hgb O2 Saturation 90.2 % (95-100) L 05/24/24 20:28 Carboxyhemoglobin 1.0 %THgb (0.4-20.1) 05/24/24 20:28 Methemoglobin 0.8 % (0.4-1.5) 05/24/24 20:28 Total Hemoglobin 12.0 g/dL (14-18) L 05/24/24 20:28 Sodium 139.0 mmol/L (131-143) 05/24/24 20:28 Potassium 3.9 mmol/L (3.5-5.0) 05/24/24 20:28 Glucose 164.0 mg/dL (70-115) H 05/24/24 20:28 Ionized Calcium 1.2 mmol/L (1.1-1.4) 05/24/24 20:28 O2 Delivery Device Bipap 05/24/24 20:28 FiO2 21.0 % 05/24/24 20:28 Bulk System Operator ID Ed 05/24/24 20:28 Sodium 140 mmol/L (136-145) 05/27/24 05:14 Potassium 4.2 mmol/L (3.5-5.1) 05/27/24 05:14 Chloride 100 mmol/L (98-107) 05/27/24 05:14 Carbon Dioxide 31 mmol/L (22-29) H 05/27/24 05:14 Anion Gap 13.2 (5-19) 05/27/24 05:14 BUN 10 mg/dL (6-20) 05/27/24 05:14 Creatinine 0.2 mg/dL (0.7-1.2) L 05/27/24 05:14 GFR Calculation 500.7 mL/min (90-130) H 05/27/24 05:14 Glucose 101 mg/dL (65-115) 05/27/24 05:14 Calculated Osmolality 289 mOsm/kg (285-295) 05/27/24 05:14 Lactic Acid 2.0 mmol/L (0.5-2.2) 05/24/24 17:37 Calcium 8.1 mg/dL (8.5-10.5) L 05/27/24 05:14 Magnesium 1.8 mg/dL (1.7-2.3) 05/27/24 05:14 Total Bilirubin 0.2 mg/dL (0.15-1.2) 05/24/24 17:37 AST 20 U/L (0-40) 05/24/24 17:37 ALT 15 U/L (0-41) 05/24/24 17:37 Alkaline Phosphatase 95 U/L (40-130) 05/24/24 17:37 C-Reactive Protein 131.4 mg/L (0.0-4.9) H 05/25/24 04:04 Total Protein 7.4 g/dL (6.6-8.7) 05/24/24 17:37 Albumin 3.9 g/dL (3.5-5.2) 05/24/24 17:37 Globulin 3.5 g/dL (1.3-4.6) 05/24/24 17:37 Procalcitonin 0.14 ng/mL (0-0.5) 05/24/24 17:37 Urine Color Dark yellow (Yellow) A 05/25/24 07:32 Urine Appearance Clear (CLEAR) 05/25/24 07:32 Urine pH 5.5 (5-7) 05/25/24 07:32 Ur Specific [place] 1.035 (1.005-1.030) H 05/25/24 07:32 Urine Protein Trace (Negative) A 05/25/24 07:32 Urine Glucose (UA) Negative (Normal) 05/25/24 07:32 Urine Ketones Negative (Negative) 05/25/24 07:32 Urine Blood Negative (Negative) 05/25/24 07:32 Urine Nitrate Negative (Negative) 05/25/24 07:32 Urine Bilirubin Negative (Negative) 05/25/24 07:32 Urine Urobilinogen 1.0 mg/dL (Negative) 05/25/24 07:32 Ur Leukocyte Esterase Negative (Negative) 05/25/24 07:32 Urine RBC 0-2 /hpf (0-2) 05/25/24 07:32 Urine WBC 0-5 /hpf (0-5) 05/25/24 07:32 Ur Squamous Epith Cells 0-5 /hpf (0-5) 05/25/24 07:32 Amorphous Sediment Not Reportable 05/25/24 07:32 Urine Bacteria None seen /hpf (NONE) 05/25/24 07:32 Hyaline Casts 2.05 /lpf 05/25/24 07:32 Nasal MRSA (PCR) Not detected (Negative) 05/27/24 11:00 Adenovirus (PCR) Not detected (NOT DETECT) 05/24/24 18:48 C. pneumoniae DNA (PCR) Not detected (NOT DETECT) 05/24/24 18:48 Coronavirus 229E (PCR) Not detected (NOT DETECT) 05/24/24 18:48 Human Metapneumovir PCR Not detected (NOT DETECT) 05/24/24 18:48 Influenza A (H1) PCR Not detected (NOT DETECT) 05/24/24 18:48 Influ A (H1/09) PCR Not detected (NOT DETECT) 05/24/24 18:48 Influenza A (H3) PCR Not detected (NOT DETECT) 05/24/24 18:48 Influenza Type A (PCR) Not detected (NOT DETECT) 05/24/24 18:48 Influenza Type B (PCR) Not detected (NOT DETECT) 05/24/24 18:48 M. pneumoniae (PCR) Not detected (NOT DETECT) 05/24/24 18:48 Parainfluenza 1 (PCR) Not detected (NOT DETECT) 05/24/24 18:48 Parainfluenza 2 (PCR) Not detected (NOT DETECT) 05/24/24 18:48 Parainfluenza 3 (PCR) Not detected (NOT DETECT) 05/24/24 18:48 Parainfluenza 4 (PCR) Not detected (NOT DETECT) 05/24/24 18:48 RSV Type A (PCR) Not detected (NOT DETECT) 05/24/24 18:48 RSV Type B (PCR) Not detected (NOT DETECT) 05/24/24 18:48 Entero/Rhino (PCR) Not detected (NOT DETECT) 05/24/24 18:48 SARS-CoV-2 (PCR) Not detected (NOT DETECT) 05/24/24 18:48 Vitals Last Vital Signs Temp 97.4 F L 05/27/24 12:00 Pulse 117 H 05/27/24 12:00 Resp 20 H 05/27/24 12:00 BP 105/70 05/27/24 12:00 Pulse Ox 95 05/27/24 12:00 O2 Del Method Nasal Cannula 05/27/24 12:00 FiO2 21 05/26/24 02:55 Discharge Plan Discharge Patient Disposition: Home Condition: Stable Prescriptions: New levofloxacin 750 mg tablet 750 mg PO DAILY 5 Days Qty: 5 0RF Continued sertraline [Zoloft] 20 mg/mL concentrate 50 mg feeding tube BEDTIME Rx Instructions: 2.5 ml at bedtime per (there are no dose/frequency instructions on bottle) Dificid 200 mg tablet 200 mg feeding tube BID Qty: 30 0RF Rx Instructions: Take 200 mg twice daily for next 10 days followed by 1 tablet every other day for next 20 days cetirizine 1 mg/mL Solution 10 mg PO BEDTIME Rx Instructions: 10 ml Chlorpheniramine Allergy 4 mg peg-tube DAILY Singulair 10 mg peg-tube DAILY famotidine 40 mg/5 mL (8 mg/mL) Suspension For Reconstitution 20 mg PO BID Rx Instructions: 2.5 ml gabapentin 250 mg/5 mL Solution 500 mg PO BEDTIME Rx Instructions: 10 ml riluzole 50 mg Tablet 50 mg PO BID Rx Instructions: administer on an empty stomach, at least 1 hour before or 2 hours after food/meal(s) nortriptyline 10 mg/5 mL Solution 30 mg feeding tube BEDTIME scopolamine base 1 mg over 3 days Patch 3 Day 0.5 patch TRANSDERMAL Q2D acetaminophen 500 mg/15 mL Liquid 1,000 mg feeding tube Q4-5H PRN (Reason: Fever) guaifenesin [Jing-Tussin] 100 mg/5 mL Liquid 600 mg PO BID Discharge Orders: Discharge Order (Routine); Ordered 05/27/24 Ordered By: Cole Contreras Referrals: Chel Weinstein FNP [Primary Care Provider] - 06/03/24 9:00 am Discharge Diet: Resume prior tube feeds Discharge Activity: Wheelchair as instructed and Cpap/Bipap as instructed Patient Instructions: Opioid Safety Activity Restrictions/Additional Instructions: Take Levaquin 750 mg for next 5 days. While you are on Levaquin continue Dificid twice daily. Once the course of antibiotic is finished you can go back to taper dose. Continue with strict NPO. Continue with tube feeds. Follow-up with a primary care provider within next 1 week and with the auto body worker on set appointment on 05/28. Discharge Attestations Time Spent in Discharge Care*: greater than 30 min Specific Discharge Activities: educating patient, discussing with pcp/other providers, discussing with caseworker protective services/social workers/dc planners, documenting/other paperwork and evaluating patient/reviewing data Status at Discharge: Cognitive status at discharge: cognitively intact, Behavioral status at discharge: cooperative, Functional status at discharge: wheelchair bound, Overall status at discharge: patient is back to baseline Quality Metrics Clinical Quality Measures [ No reported AMI, CVA or VTE this stay] Coding Level of Care Code 31365 Total time (in minutes) for Discharge: 60 Diagnoses S/P fecal transplant Z92.89 Recurrent Clostridioides difficile diarrhea A04.71 Sepsis A41.9 ALS (amyotrophic lateral sclerosis) G12.21 Pneumonia J18.9 Recurrent aspiration pneumonia J69.0 Acute and chronic respiratory failure J96.20 Chronic hypoxemic respiratory failure J96.11 Respiratory distress R06.03 Sinus tachycardia R00.0
[2024-05-27] MEDS: Singulair 10 MG 10 EACH PEG-TUBE (14:48)
[2024-05-27] MEDS: [UNRECOGNIZED DRUG - REMARK] 4 EACH PEG-TUBE (14:49)
== END 2024-05-27 15:41 | disposition home or self-care (01) | DRG 871 ==
LOC: ER 20:57 → ICU 21:34 → MEDSURG 05-26 11:50
PROVIDERS: Internal Medicine; Admitting Provider Internal Medicine; Emergency Provider Emergency Medicine; PCP Nurse Practitioner; Visit Provider Student in an Organized Health Care Education/Training Program
DX: A41.9 Sepsis, unspecified organism (principal); J69.0 Pneumonitis due to inhalation of food and vomit; J96.22 Acute and chronic respiratory failure with hypercapnia; J96.21 Acute and chronic respiratory failure with hypoxia; A04.71 Enterocolitis due to Clostridium difficile, recurrent; G12.21 Amyotrophic lateral sclerosis; D84.821 Immunodeficiency due to drugs; R65.20 Severe sepsis without septic shock; E83.42 Hypomagnesemia; D63.8 Anemia in other chronic diseases classified elsewhere; F32.A Depression, unspecified; G62.9 Polyneuropathy, unspecified; J47.9 Bronchiectasis, uncomplicated; T50.995A Adverse effect of other drugs, medicaments and biological substances, initial encounter; Z99.3 Dependence on wheelchair; Z93.1 Gastrostomy status; Z87.01 Personal history of pneumonia (recurrent)
CPT/HCPCS: 36415; 36600; 71045; 71250; 80048; 80051; 80053; 81001; 82330; 82805; 83605; 83735; 84145; 85025; 85378; 86140; 86403; 87040; 87449; 87486; 87581; 87633; 94640; 94664; 94669; 94799; 96365; 96372; 96374; 96375; 96376; 99285; 99291; J0456; J0692; J1100; J1650; J1956; J2020; J2060; J2185; J3475; J7030; J7040; J7050; J7608; J7613

== ENCOUNTER 2024-06-10 08:57 | Outpatient (CLI) | payer OTHER, SELFPAY ==
[2024-06-10 09:43] LABS: Basophils # 0.1 10^3/uL (0.0-0.1); Basophils % 0.4 %; Eosinophils # 0.3 10^3/uL (0.0-0.8); Eosinophils % 2.3 %; Hematocrit 40.1 % (37-53); Lymphocytes # 1.2 10^3/uL (0.8-4.8); Lymphocytes % 10.9 %; Mean Corpuscular HGB Conc 30.2 g/dL (30-55); Mean Corpuscular Hemoglobin 28.1 pg (27-33); Mean Platelet Volume 10.9 fL (7.4-10.4); Monocytes # 0.6 10^3/uL (0.2-0.9); Monocytes % 5.7 %; Neutrophils # 9.02 10^3/uL (1.8-7.7); Neutrophils % 80.4 %; Nucleated Red Blood Cells % 0 %; Platelet Count 531 10^3/cmm (157-399); Red Blood Count 4.31 10^6/uL (3.85-5.65); Red Cell Distribution Width 17.4 % (12.1-15.1); White Blood Count 11.22 10^3/uL (3.29-11.43)
[2024-06-10 10:10] LABS: Alanine Aminotransferase 14 U/L (0-41); Albumin Level 4.1 g/dL (3.5-5.2); Alkaline Phosphatase 81 U/L (40-130); Anion Gap 11.7 (5-19); Aspartate Amino Transferase 19 U/L (0-40); Blood Urea Nitrogen 14 mg/dL (6-20); Carbon Dioxide 34 mmol/L (22-29); Chloride 97 mmol/L (98-107); Glomerular Filtration Rate 313.6 mL/min (90-130); Glucose 86 mg/dL (65-115); Osmolality Calculated 286 mOsm/kg (285-295); Potassium 4.7 mmol/L (3.5-5.1); Sodium 138 mmol/L (136-145); Total Bilirubin 0.4 mg/dL (0.15-1.2); Total Protein 8.1 g/dL (6.6-8.7)
== END 2024-06-10 08:58 | disposition home or self-care (01) ==
LOC: LAB 08:58
PROVIDERS: PCP Nurse Practitioner; Visit Provider Student in an Organized Health Care Education/Training Program
DX: A04.71 Enterocolitis due to Clostridium difficile, recurrent (principal); J18.9 Pneumonia, unspecified organism
CPT/HCPCS: 36415; 80053; 85025

== ENCOUNTER 2024-06-13 17:21 | Inpatient (IN) | payer OTHER, MEDICARE, SELFPAY ==
[2024-06-13] VITALS (35 sets, daily range): BP systolic 64–123; BP diastolic 25–81; PULSE 114–129; RESP 13–27; TEMP 36.2–38.4; O2SAT 85–100
--- NOTE | 2024-06-13 18:29 | XRR_ITS ---
PROCEDURE INFORMATION: Exam: XR Chest Exam date and time: 06/13/2024 6:45 PM Age: 53 years old Clinical indication: Pain; Chest pressure; Additional info: Shortness of breath TECHNIQUE: Imaging protocol: Radiologic exam of the chest. Views: 1 view. COMPARISON: CT chest con [id number] 05/24/2024 10:13 PM FINDINGS: Lungs: Multifocal infiltrate, most notably in the right middle and lower lobes, appears similar to 05/24/2024 radiographs. Interstitial thickening. Pleural spaces: No large pleural effusion. No pneumothorax. Heart/Mediastinum: No cardiomegaly. Bones/joints: No acute abnormality. XR/XR chest 1V portable [id number] IMPRESSION: Multifocal infiltrate, most notably in the right middle and lower lobes, appears similar to 05/24/2024 radiographs.
[2024-06-13 18:49] LABS: Basophils # 0.1 10^3/uL (0.0-0.1); Basophils % 0.4 %; Eosinophils # 0.2 10^3/uL (0.0-0.8); Eosinophils % 0.9 %; Hematocrit 38.3 % (37-53); Lymphocytes # 1.2 10^3/uL (0.8-4.8); Lymphocytes % 5.2 %; Mean Corpuscular HGB Conc 30.3 g/dL (30-55); Mean Corpuscular Hemoglobin 28.1 pg (27-33); Mean Corpuscular Volume 92.7 fl (82-101); Monocytes # 1.1 10^3/uL (0.2-0.9); Monocytes % 4.9 %; Neutrophils # 19.58 10^3/uL (1.8-7.7); Neutrophils % 88.2 %; Nucleated Red Blood Cells % 0 %; Platelet Count 637 10^3/cmm (157-399); Red Blood Count 4.13 10^6/uL (3.85-5.65); Red Cell Distribution Width 17.1 % (12.1-15.1); White Blood Count 22.17 10^3/uL (3.29-11.43)
[2024-06-13 19:03] LABS: Alanine Aminotransferase 18 U/L (0-41); Albumin Level 4.1 g/dL (3.5-5.2); Alkaline Phosphatase 101 U/L (40-130); Anion Gap 14.9 (5-19); Aspartate Amino Transferase 22 U/L (0-40); Blood Urea Nitrogen 14 mg/dL (6-20); Calcium 10.4 mg/dL (8.5-10.5); Carbon Dioxide 32 mmol/L (22-29); Chloride 92 mmol/L (98-107); Creatinine Clr Calc Pharmacy 176.3039; Globulin 3.4 g/dL (1.3-4.6); Glomerular Filtration Rate 313.6 mL/min (90-130); Glucose 174 mg/dL (65-115); Lipase 27 U/L (13-60); Osmolality Calculated 285 mOsm/kg (285-295); Potassium 3.9 mmol/L (3.5-5.1); Sodium 135 mmol/L (136-145); Total Bilirubin 0.2 mg/dL (0.15-1.2); Total Protein 7.5 g/dL (6.6-8.7)
--- NOTE | 2024-06-13 19:23 | W.ED.ABDPA2 ---
HPI - Abdominal Pain General: Chief Complaint: Abdominal Pain Stated Complaint: Abd Pain\Fever Time Seen by Provider: 06/13/24 18:13 History of Present Illness: 53-year-old man with a history of ALS and recurrent pneumonia who presents to the emergency room with abdominal pain and continued breathing issues. Was seen by his primary recently and started on azithromycin. He has also been treated for C. difficile several times recently. He is currently on a controlling medication for that. No acute changes in his respiratory status. No known fevers. Related Data Home Medications Medication Instructions Recorded Confirmed sertraline 20 mg/mL oral 50 mg feeding tube BEDTIME 05/16/23 05/25/24 concentrate (Zoloft) cetirizine 1 mg/mL oral solution 10 mg PO BEDTIME 10/16/23 05/25/24 famotidine 40 mg/5 mL (8 mg/mL) 20 mg PO BID 12/13/23 05/25/24 oral suspension gabapentin 250 mg/5 mL oral 500 mg PO BEDTIME 12/13/23 05/25/24 solution acetaminophen 500 mg/15 mL oral 1,000 mg feeding tube Q4-5H PRN 01/08/24 05/25/24 liquid Fever guaifenesin 100 mg/5 mL oral 600 mg PO BID 01/08/24 05/25/24 liquid (Jing-Tussin) nortriptyline 10 mg/5 mL oral 30 mg feeding tube BEDTIME 01/08/24 05/25/24 solution riluzole 50 mg tablet 50 mg PO BID 01/08/24 05/25/24 scopolamine base 1 mg over 3 days 0.5 patch transdermal Q2D 01/08/24 05/25/24 transdermal patch Chlorpheniramine Allergy 4 mg peg-tube DAILY 05/12/24 05/25/24 Singulair 10 mg peg-tube DAILY 05/12/24 05/25/24 Previous Rx's Medication Instructions Recorded azithromycin 250 mg tablet 250 mg PO DAILY chronic 06/10/24 suppression 30 days #30 tabs fidaxomicin 200 mg tablet (Dificid) 200 mg feeding tube Q48H 30 days 06/10/24 #15 tabs Allergies Allergy/AdvReac Type Severity Reaction Status Date / Time No Known Allergies Allergy Verified 06/13/24 17:46 Review of Systems Narrative: Constitutional symptoms: Negative except as documented in HPI. Skin symptoms: Negative except as documented in HPI. Eye symptoms: Negative except as documented in HPI. ENMT symptoms: Negative except as documented in HPI. Respiratory symptoms: Negative except as documented in HPI. Cardiovascular symptoms: Negative except as documented in HPI. Gastrointestinal symptoms: Negative except as documented in HPI. Genitourinary symptoms: Negative except as documented in HPI. Musculoskeletal symptoms: Negative except as documented in HPI. Neurologic symptoms: Negative except as documented in HPI. Psychiatric symptoms: Negative except as documented in HPI. Endocrine symptoms: Negative except as documented in HPI. 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 difficile treatment D-dimer, elevated Multiple tracheobronchial mucus plugs Weak cough At risk for aspiration Left lower lobe consolidation Recurrent pneumonia SI (sacroiliac) pain Anemia of chronic disease Depression Peripheral neuropathy Fracture of femoral neck, right Chronic, nondisplaced, for non operative management to date, follows with [facility] Small bowel obstruction 06/08 C. difficile enteritis Ulcerative (chronic) enterocolitis ALS (amyotrophic lateral sclerosis) Diagnosed in 2019 Surgical History History of oral surgery History of esophageal surgery Family History Denies family history of Diabetes Hypertension Social History Smoking and tobacco/nicotine status: never used tobacco/nicotine Alcohol intake: never Substance/Drug Use: never Physical Exam Narrative: EXAM NARRATIVE: General: Alert, no acute distress. Cachexia Skin: Warm, dry. Head: Normocephalic, atraumatic. Neck: Supple, trachea midline. Eye: Extraocular movements are intact. Ears, nose, mouth and throat: mucosa moist. Cardiovascular: Regular, Normal peripheral perfusion. Respiratory: Coarse lung sounds, patient is on nasal BiPAP. Gastrointestinal: Soft, Nontender, Non distended Musculoskeletal: no deformity. Neurological: Alert and oriented, No focal neurological deficit observed. Psychiatric: Cooperative, appropriate mood & affect. Course Vital Signs: Vital signs: Vital Signs Temperature 97.2 F L 06/13/24 17:41 Pulse Rate 123 H 06/13/24 20:47 Blood Pressure 115/77 06/13/24 20:47 Pulse Oximetry 93 06/13/24 20:47 Oxygen Delivery Me thod BiPAP 06/13/24 17:41 MDM - Abdominal Pain Medical Decision Making Chest x-ray: Continued infiltrates. Similar to 05/24. This was reviewed and interpreted by myself the emergency room physician. I also reviewed the radiology report. Lab review: Lab work was reviewed and interpreted by myself the emergency room physician. Patient has a recurrence of leukocytosis. This most often indicates worsening infection. Admitting to the hospitalist service. C. difficile is negative today. Consultation: I spoke with Dr. Keene who is familiar with the patient as well and she recommends admission and Zosyn here in the emergency room Assessment and plan: ALS Leukocytosis Pneumonia Abdominal pain ?IV Zosyn in the emergency room -I discussed the patient with the hospitalist on-call who is admitting the patient. - Discussed findings and plan with patient. Answered any questions. - All laboratory values were reviewed and interpreted personally by myself, the ER physician - All imaging was reviewed and interpreted personally by myself, the ER physician. - Evaluation and treatment of this problem were appropriate in the emergency setting Lab Data 06/13/24 18:21 06/13/24 18:21 Labs/Radiology: Radiology Impressions Chest X-Ray 06/13/24 18:29 IMPRESSION: Multifocal infiltrate, most notably in the right middle and lower lobes, appears similar to 05/24/2024 radiographs. Laboratory Results WBC 22.17 10^3/uL (3.29-11.43) H 06/13/24 18:21 RBC 4.13 10^6/uL (3.85-5.65) 06/13/24 18:21 Hgb 11.60 g/dL (11.27-16.99) 06/13/24 18:21 Hct 38.3 % (37-53) 06/13/24 18:21 MCV 92.7 fl (82-101) 06/13/24 18:21 MCH 28.1 pg (27-33) 06/13/24 18:21 MCHC 30.3 g/dL (30-55) 06/13/24 18:21 RDW 17.1 % (12.1-15.1) H 06/13/24 18:21 Plt Count 637 10^3/cmm (157-399) H 06/13/24 18:21 MPV 11.0 fL (7.4-10.4) H 06/13/24 18:21 Neut % (Auto) 88.2 % 06/13/24 18:21 Lymph % (Auto) 5.2 % 06/13/24 18:21 [place] % (Auto) 4.9 % 06/13/24 18:21 Eos % (Auto) 0.9 % 06/13/24 18:21 Baso % (Auto) 0.4 % 06/13/24 18:21 Neut # (Auto) 19.58 10^3/uL (1.8-7.7) H 06/13/24 18:21 Lymph # (Auto) 1.2 10^3/uL (0.8-4.8) 06/13/24 18:21 [place] # (Auto) 1.1 10^3/uL (0.2-0.9) H 06/13/24 18:21 Eos # (Auto) 0.2 10^3/uL (0.0-0.8) 06/13/24 18:21 Baso # (Auto) 0.1 10^3/uL (0.0-0.1) 06/13/24 18:21 Nucleated RBC % (auto) 0 % 06/13/24 18:21 Nucleated RBCs # 0.0 /100WBC 06/13/24 18:21 Sodium 135 mmol/L (136-145) L 06/13/24 18:21 Potassium 3.9 mmol/L (3.5-5.1) 06/13/24 18:21 Chloride 92 mmol/L (98-107) L 06/13/24 18:21 Carbon Dioxide 32 mmol/L (22-29) H 06/13/24 18:21 Anion Gap 14.9 (5-19) 06/13/24 18:21 BUN 14 mg/dL (6-20) 06/13/24 18:21 Creatinine 0.3 mg/dL (0.7-1.2) L 06/13/24 18:21 GFR Calculation 313.6 mL/min (90-130) H 06/13/24 18:21 Glucose 174 mg/dL (65-115) H 06/13/24 18:21 Calculated Osmolality 285 mOsm/kg (285-295) 06/13/24 18:21 Calcium 10.4 mg/dL (8.5-10.5) 06/13/24 18:21 Total Bilirubin 0.2 mg/dL (0.15-1.2) 06/13/24 18:21 AST 22 U/L (0-40) 06/13/24 18:21 ALT 18 U/L (0-41) 06/13/24 18:21 Alkaline Phosphatase 101 U/L (40-130) 06/13/24 18:21 Total Protein 7.5 g/dL (6.6-8.7) 06/13/24 18:21 Albumin 4.1 g/dL (3.5-5.2) 06/13/24 18:21 Globulin 3.4 g/dL (1.3-4.6) 06/13/24 18:21 Lipase 27 U/L (13-60) 06/13/24 18:21 C. difficile (PCR) Negative (Negative) 06/13/24 19:19 All radiology interpretation(s) finalized by discharge Discharge Plan Discharge Patient Disposition: Admitted As Inpatient Clinical Impression: Pneumonia, ALS (amyotrophic lateral sclerosis) Condition: Stable Coding Level of Care Code ED Accounts Receivable Specialist for Clary Yo
[2024-06-13 20:21] LABS: C.Diff PCR (Lab) NEGATIVE (Negative)
--- NOTE | 2024-06-13 22:04 | ECG_ITS ---
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 Measurements Intervals [place] Rate: 125 P: 75 ME: 147 QRS: 76 QRSD: 81 T: 72 QT: 299 QTc: 432 Interpretive Statements SINUS TACHYCARDIA Compared to ECG 05/11/2024 15:20:47 T-wave abnormality no longer present Electronically Signed On 06-16-2024 18:56:55 MED[employer] OPERATOR by Jesus Best M.D. [email or web address]
--- NOTE | 2024-06-13 22:30 | P.HP_ITS ---
Providers/Chief Complaint 2 Admitting Physician: Jossy Keene MD Primary Care Provider: MORENO Ferrara Chief Complaint: Abd Pain\Fever History of Present Illness Silvestre Espinosa is a 53 year old male with a past medical history of progressive ALS, last NIF of -, increasingly requiring extended times on his BiPAP at home presents to the hospital with fever malaise and nausea. Patient has had recurrent admissions here for aspiration pneumonia and C. difficile. 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 difficile afterwards as well. He is currently on Dificid every other day. He has recently been placed on trial of chronic suppression for recurrent pneumonias with antibiotics. Azithromycin 250 mg p.o. daily was trialed, he started treatment earlier this week, however has been having fever 100.9 Fahrenheit along with symptoms of malaise and nausea. Patient has a PEG tube for which he feeds exclusively. There have been no recent changes in his bowel habits. He has been compliant with chest vest, nebulization, antihistamines and scopolamine patch in an attempt to try to reduce upper airway aspiration but has continued to have breakthrough infections regardless. Review of Systems 2 General: Reports: 10 or more systems reviewed and unremarkable except in HPI and below Const: Denies: fever(s), chills or body aches Eyes: Denies: change in vision, blurry vision or photophobia ENMT: Reports: hoarseness; Denies: throat pain, enlarged tonsils, odynophagia or nasal congestion Card: Denies: chest pain, palpitations, irregular heart rhythm, edema, swelling of feet/ankles, lightheadedness, pre-syncope, dyspnea on exertion or orthopnea Resp: Denies: dyspnea, productive cough, non-productive cough, wheezing, stridor, pain on inspiration, change in phlegm color, hemoptysis or chest congestion GI: Denies: abdominal pain, nausea, vomiting, hematemesis, coffee ground emesis, dysphagia, heartburn, diarrhea, constipation, GI cramping, change in stool character, hematochezia or melena : Denies: flank pain, dysuria, urinary frequency, urinary urgency, urinary hesitancy or hematuria Musc: Denies: neck pain, back pain, extremity pain, joint swelling, joint warmth or deformity Neuro: Denies: headache(s), numbness in extremities, weakness in extremities, sensory changes, difficulty walking, frequent falls, dizziness, vertigo, behavioral changes, Slurred speech present or seizure-like activity Psych: Denies: anxiety, depression, suicidal ideation or homicidal ideation Endo: Denies: polyuria, polydipsia, tired all the time, cold intolerance or hot flashes Piero/Lymph: Denies: easy bruising or easy bleeding Medications/Allergies Home Medications Medication Instructions Recorded Confirmed Last Taken Type sertraline 20 mg/mL oral 50 mg feeding tube BEDTIME 05/16/23 06/13/24 06/13/24 23:29 History concentrate (Zoloft) cetirizine 1 mg/mL oral solution 10 mg PO BEDTIME 10/16/23 06/13/24 06/13/24 23:26 History famotidine 40 mg/5 mL (8 mg/mL) 20 mg PO BID 12/13/23 06/13/24 06/13/24 23:26 History oral suspension gabapentin 250 mg/5 mL oral 500 mg PO BEDTIME 12/13/23 06/13/24 06/13/24 23:27 History solution acetaminophen 500 mg/15 mL oral 1,000 mg feeding tube Q4-5H PRN 01/08/24 06/13/24 06/13/24 23:25 History liquid Fever guaifenesin 100 mg/5 mL oral 600 mg PO TID 01/08/24 06/13/24 06/13/24 23:28 History liquid (Jing-Tussin) nortriptyline 10 mg/5 mL oral 30 mg feeding tube BEDTIME 01/08/24 06/13/24 06/13/24 23:28 History solution riluzole 50 mg tablet 50 mg PO BID 01/08/24 06/13/24 06/13/24 23:29 History scopolamine base 1 mg over 3 days 0.5 patch transdermal Q2D 01/08/24 06/13/24 06/13/24 History transdermal patch Chlorpheniramine Allergy 4 mg peg-tube DAILY 05/12/24 06/13/24 06/13/24 History Singulair 10 mg peg-tube DAILY 05/12/24 06/13/24 06/13/24 History azithromycin 250 mg tablet 250 mg PO DAILY chronic 06/10/24 06/13/24 06/12/24 Rx suppression 30 days #30 tabs fidaxomicin 200 mg tablet (Dificid) 200 mg feeding tube Q48H 30 days 06/10/24 06/13/24 06/13/24 Rx #15 tabs Allergies Allergy/AdvReac Type Severity Reaction Status Date / Time No Known Allergies Allergy Verified 06/13/24 17:46 PFSH Acute 2 PFSH: Medical History 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 difficile enteritis Ulcerative (chronic) enterocolitis ALS (amyotrophic lateral sclerosis) Diagnosed in 2019 Surgical History History of oral surgery History of esophageal surgery Family History Denies family history of Diabetes Hypertension Social History Smoking and tobacco/nicotine status: never used tobacco/nicotine Alcohol intake: never Substance/Drug Use: never Vitals/I&O/Wt Last Vital Signs Temp 97.2 F L 06/13/24 17:41 Pulse 126 H 06/13/24 22:40 Resp 25 H 06/13/24 22:40 BP 106/78 06/13/24 22:40 Pulse Ox 95 06/13/24 22:40 O2 Del Method BiPAP 06/13/24 17:41 Weight last 48 hrs Weight 43.772 kg Physical Exam 2 Narrative: General: Currently in a wheelchair, has BiPAP with nasal mask on. He is alert awake and oriented , appears to be intermittently nauseous HEENT: PERRLA, pupils bilaterally equal and reactive, pallors not present. Chronic erythema thickness over the right auricle Chest: Normal vesicular breath sounds, reduced air entry in the right lower lobe CVS: S1-S2 regular, no murmurs, no tachycardia, no gallops, no rubs Abdomen: Soft, nontender, PEG tube in place Neuro: ALS, chronically in a wheelchair, BiPAP dependent. Data 06/13/24 18:21 06/13/24 18:21 Micro: Microbiology 06/13/24 22:40 Blood Culture - Preliminary Blood SPECIMEN COLLECTED 06/13/24 22:15 Blood Culture - Preliminary Blood SPECIMEN COLLECTED A&P Assessment and plan (1) Fever: (2) Leukocytosis: (3) Recurrent aspiration pneumonia: (4) Acute and chronic respiratory failure: Plan 53-year-old male with advancing ALS, last NIF noted to be at -19 as outpatient, history of recurrent aspiration pneumonias currently presenting with fever, increased fatigue malaise and leukocytosis of 22,000. Chest x-ray today shows persistence of multifocal infiltrates most notably in the right middle and lower lobes, overall appears to be unchanged compared to recent admission earlier this month. Of note his chest x-ray has continued to show bilateral infiltrates waxing and waning right or left side since earlier this year. This is thought to be related mainly to upper airway aspirations. Short antibiotic courses have been helpful in the past. Recently started on chronic suppression trial with azithromycin, however now has had leukocytosis and fever in spite of the same. Suspect him to be having aspiration pneumonia. On auscultation there is reduced air entry into the right side. Per personal interpretation of images he appears to be developing an area of bronchiectasis in the right lower lobe. Is a recent history of admission for C. difficile diarrhea for which she is on Dificid every other day. Plan: Admit to ICU in view of high risk of progression to respiratory failure and need for ventilation given his recent NIF values Start empiric antibiotic therapy with piperacillin/tazobactam for aspiration pneumonia Check sputum culture and Gram stain if able to bring up some sputum. Check MRSA PCR, respiratory viral panel check UA and urine cx for evaluation of fever - denies current urinary symptoms blood cx taken and pending Previous sputum cultures have been notable for MSSA and Streptococcus however no recent cultures available since December 2023 at [facility]. Continue Dificid every other day while he remains on antibiotics DVT prophylaxis: Heparin 5000 subcu every 12 hours Full code Attestations 2 Medical Necessity Statement*: > 2 midnight stay is anticipated Coding Level of Care Code Acute Code for Chg Fwd High MDM includes number and complexity of problems actively addressed during encounter, amount and/or complexity of data reviewed/ordered and described risk of complication, morbidity or mortality of management as documented Diagnoses Fever R50.9 Leukocytosis D72.829 Recurrent aspiration pneumonia J69.0 Acute and chronic respiratory failure J96.20
--- NOTE | 2024-06-13 23:53 | PC.NURSE ---
2300: Antibiotics delayed by this nurse due to blood cultures.
[2024-06-14] VITALS (31 sets, daily range): BP systolic 94–108; BP diastolic 64–81; PULSE 88–125; RESP 15–36; TEMP 36.6–37; O2SAT 90–98; BMI 14.3
[2024-06-14] MEDS: ondansetron 2 mg/ML SDV 2 mL 4 MG IVP (00:25)
[2024-06-14 00:26] LABS: Add Urine Microscopic? YES; Bacteria Urine None Seen /hpf; Bilirubin Urine Negative (Negative); Blood Urine 2+ (Negative); Glucose Urine UA Negative (Normal); Hyaline Casts Urine 2.46 /lpf; Ketones Urine 1+ (Negative); Leukocyte Esterase Urine Negative (Negative); Nitrate Urine Negative (Negative); Protein Urine 1+ (Negative); RBC Urine 21-50 /hpf (0-2); Squamous Epithelial Cell Urine 0-5 /hpf (0-5); Universal Test for UA Present (0); Urine Appearance Clear (CLEAR); Urine Color Dark Yellow (Yellow); WBC Urine 0-5 /hpf (0-5); pH Urine 5.5 (5-7)
[2024-06-14] MEDS: piperacillin-tazobactam 3.375 GM in sodium chloride 0.9% (plus) 50 ML IV ×3 (00:26→21:39)
[2024-06-14 00:40] LABS: Add Urine Culture? Yes; Specific Gravity, Urine 1.035 (1.005-1.030); Triple Phosphate Crystal Urine 15-25 /hpf
[2024-06-14 01:19] LABS: MRSA PCR OZH (swab) NOT DETECTED (Negative)
--- NOTE | 2024-06-14 01:49 | PC.NURSE ---
Patient brought home meds, many of which are non-formulary and in person pharmacy is not here overnight. Dr. Keene said it was ok for patient's to administer his meds tonight. Meds she administered through peg tube are as follows: Acetaminophen 1000 mg oral liquid Cetirizine 10mg oral liquid famotidine 20mg oral liquid Gabapentin 500mg oral liquid Guaifenesin 600 mg oral liquid Nortriptyline 30 mg Riluzole 50 mg tab sertraline 50mg oral liquid
[2024-06-14 01:51] LABS: Adenovirus Not Detected (NOT DETECT); Chlamydia Pneumoniae Not Detected (NOT DETECT); Coronavirus 229E,HKU1,NL63,OC4 Not Detected (NOT DETECT); Human Metapneumovirus Not Detected (NOT DETECT); Human Rhinovirus/Enterovirus Not Detected (NOT DETECT); Influenza A Not Detected (NOT DETECT); Influenza A H1 Not Detected (NOT DETECT); Influenza A H1-2009 Not Detected (NOT DETECT); Influenza A H3 Not Detected (NOT DETECT); Influenza B Not Detected (NOT DETECT); Mycoplasma Pneumoniae Not Detected (NOT DETECT); Parainfluenza Virus Type 1 Not Detected (NOT DETECT); Parainfluenza Virus Type 2 Not Detected (NOT DETECT); Parainfluenza Virus Type 3 Not Detected (NOT DETECT); Parainfluenza Virus Type 4 Not Detected (NOT DETECT); Respiratory Syncytial Virus A Not Detected (NOT DETECT); Respiratory Syncytial Virus B Not Detected (NOT DETECT); SARS-COV-2 Not Detected (NOT DETECT)
--- NOTE | 2024-06-14 04:00 | XRR_ITS ---
PROCEDURE INFORMATION: Exam: XR Chest Exam date and time: 06/14/2024 6:57 AM Age: 53 years old Clinical indication: Shortness of breath; Additional info: F/up lung infiltrates TECHNIQUE: Imaging protocol: Radiologic exam of the chest. Views: 1 view. COMPARISON: CR (CHEST, ) 06/13/2024 6:45 PM FINDINGS: Lungs: Unremarkable. No consolidation. Pleural spaces: Unremarkable. No pleural effusion. No pneumothorax. Heart/Mediastinum: No change in the heart or mediastinum. Bones/joints: Unremarkable. Other findings: The minimal multifocal opacities have not significantly changed. XR/XR chest 1V portable [id number] IMPRESSION: Stable pulmonary infiltrates.
[2024-06-14] MEDS: RILUZOLE 50 MG 50 EACH PO ×2 (08:38→19:11)
[2024-06-14] MEDS: FAMOTIDINE 40 MG/5 ML 20 EACH PEG-TUBE ×2 (08:40→19:10)
[2024-06-14] MEDS: guaiFENesin 100 mg/5 mL UDC 10 mL 600 MG PEG-TUBE ×3 (09:03→21:36)
[2024-06-14 13:51] LABS: Basophils # 0.1 10^3/uL (0.0-0.1); Basophils % 0.4 %; Eosinophils # 0.2 10^3/uL (0.0-0.8); Eosinophils % 1.3 %; Hematocrit 36.4 % (37-53); Lymphocytes # 1.2 10^3/uL (0.8-4.8); Lymphocytes % 9.1 %; Mean Corpuscular HGB Conc 30.8 g/dL (30-55); Mean Corpuscular Hemoglobin 28.1 pg (27-33); Mean Corpuscular Volume 91.5 fl (82-101); Mean Platelet Volume 10.9 fL (7.4-10.4); Monocytes % 7.5 %; Neutrophils # 10.34 10^3/uL (1.8-7.7); Neutrophils % 81.4 %; Nucleated Red Blood Cells % 0 %; Platelet Count 567 10^3/cmm (157-399); Red Blood Count 3.98 10^6/uL (3.85-5.65); White Blood Count 12.71 10^3/uL (3.29-11.43)
[2024-06-14] MEDS: AZITHROMYCIN ADD-Vantage 500 MG in 0.9% NaCl ADD-Vantage 250 ML 250 MG IV (14:04)
[2024-06-14 14:09] LABS: Estmated Average Glucose 97
[2024-06-14 14:18] LABS: Procalcitonin 0.18 ng/mL (0-0.5); Thyroid Stimulating Hormone 1.43 uIU/mL (0.27-4.20)
[2024-06-14 14:29] LABS: Alanine Aminotransferase 15 U/L (0-41); Albumin Level 3.8 g/dL (3.5-5.2); Alkaline Phosphatase 80 U/L (40-130); Aspartate Amino Transferase 19 U/L (0-40); Blood Urea Nitrogen 14 mg/dL (6-20); Calcium 9.5 mg/dL (8.5-10.5); Carbon Dioxide 29 mmol/L (22-29); Chloride 97 mmol/L (98-107); Creatinine Clr Calc Pharmacy 265.2775; Globulin 3.7 g/dL (1.3-4.6); Glomerular Filtration Rate 500.7 mL/min (90-130); Glucose 85 mg/dL (65-115); Osmolality Calculated 290 mOsm/kg (285-295); Sodium 140 mmol/L (136-145); Total Bilirubin 0.2 mg/dL (0.15-1.2); Total Protein 7.5 g/dL (6.6-8.7)
[2024-06-14 14:49] LABS: Iron 25 ug/dL (59-158); Percent Saturation 12.6 % (20-50); Total Iron Binding Capacity 197 mcg/dl; Unsaturated Iron Binding 172 ug/dL (112-347)
[2024-06-14 15:14] LABS: Vitamin B12 > 2000 pg/mL (232-1245)
--- NOTE | 2024-06-14 15:22 | P.PN_ITS ---
Subjective 2 Subjective: Admitted overnight. On examination patient sitting comfortably on CPAP. Able to converse through writing. Denies any distress currently. Denies any difficulty in breathing more than usual, nausea, vomiting, dysuria, diarrhea bowel movements more than usual, skin breakdown. Vitals/I&O/Wt Last Vital Signs Temp 97.8 F 06/14/24 08:00 Pulse 112 H 06/14/24 14:00 Resp 23 H 06/14/24 14:00 BP 100/65 06/14/24 14:00 Pulse Ox 94 06/14/24 14:00 O2 Del Method BiPAP 06/14/24 00:12 06/14/24 06/14/24 06/14/24 06:59 14:59 22:59 Intake Total 50 / 50 600 / 600 Output Total 100 / 100 Balance -50 / -50 600 / 600 Weight last 48 hrs Weight 43.908 kg Weight 43.908 kg Weight 43.772 kg Physical Exam 2 Narrative: General: Currently in a wheelchair, has BiPAP with nasal mask on. He is alert awake and oriented , appears to be intermittently nauseous HEENT: PERRLA, pupils bilaterally equal and reactive, pallors not present. Chronic erythema thickness over the right auricle Chest: Normal vesicular breath sounds, reduced air entry in the right lower lobe CVS: S1-S2 regular, no murmurs, no tachycardia, no gallops, no rubs Abdomen: Soft, nontender, PEG tube in place Neuro: ALS, chronically in a wheelchair, BiPAP dependent. Data 06/14/24 13:15 06/14/24 13:15 Micro: Microbiology 06/13/24 22:40 Blood Culture - Preliminary Blood SPECIMEN COLLECTED 06/13/24 22:15 Blood Culture - Preliminary Blood SPECIMEN COLLECTED A&P Assessment and plan (1) Fever: (2) Leukocytosis: (3) Recurrent aspiration pneumonia: (4) Acute and chronic respiratory failure: (5) ALS (amyotrophic lateral sclerosis): Plan 53-year-old male with advancing ALS, last NIF noted to be at -19 as outpatient, history of recurrent aspiration pneumonias currently presenting with fever, increased fatigue malaise and leukocytosis of 22,000. Chest x-ray today shows persistence of multifocal infiltrates most notably in the right middle and lower lobes, overall appears to be unchanged compared to recent admission earlier this month. Of note his chest x-ray has continued to show bilateral infiltrates waxing and waning right or left side since earlier this year. This is thought to be related mainly to upper airway aspirations. Short antibiotic courses have been helpful in the past. Recently started on chronic suppression trial with azithromycin, however now has had leukocytosis and fever in spite of the same. Suspect him to be having aspiration pneumonia. On auscultation there is reduced air entry into the right side. Per personal interpretation of images he appears to be developing an area of bronchiectasis in the right lower lobe. Is a recent history of admission for C. difficile diarrhea for which she is on Dificid every other day. Plan: Monitor NIF daily. Recheck CBC and CMP. Appreciate chest x-ray, urinalysis. C. difficile negative. MRSA swab negative, respiratory viral panel negative. Follow-up blood cultures. Continue with IV Zosyn and add azithromycin for atypical coverage. Continue other chronic medications including fidaxomicin. CODE STATUS: Discussed in detail with the patient. He wants to remain full code. He is okay with mechanical ventilation if needed. Does not want tracheostomy. States if it seems that he is not coming off ventilator he would rather be converted to comfort care at that moment. Continue with home schedule of tube feeds Famotidine for PUD prophylaxis Of heparin 5000 every 12 hourly for DVT prophylaxis Attestations 2 Medical Necessity Statement*: Requires further hospitalization for further evaluation and management of leukocytosis, fever and patient with recurrent aspiration pneumonitis, ALS, acute on chronic respiratory failure, recurrent C. difficile Diagnoses Fever R50.9 Leukocytosis D72.829 Recurrent aspiration pneumonia J69.0 Acute and chronic respiratory failure J96.20 ALS (amyotrophic lateral sclerosis) G12.21
[2024-06-14] MEDS: heparin 5,000 unit/mL INJ 1 mL 5000 UNIT SUBCUT (17:15)
[2024-06-14] MEDS: dextrose 5%-sod chloride 0.9% 1,000 ML 50 ML IV (17:15)
[2024-06-14] MEDS: SINGULAIR 10 MG 10 EACH PEG-TUBE (19:10)
[2024-06-14] MEDS: GABAPENTIN 250 MG/5 ML 500 EACH PEG-TUBE (20:55)
[2024-06-14] MEDS: NORTRIPTYLINE 10 MG/5 ML 30 EACH PEG-TUBE (21:37)
[2024-06-14] MEDS: SERTRALINE 20 MG/ML 50 EACH PEG-TUBE (21:37)
[2024-06-14] MEDS: CETIRIZINE 5 MG/5 ML 10 EACH PEG-TUBE (21:39)
[2024-06-15] VITALS (32 sets, daily range): BP systolic 99–133; BP diastolic 71–90; PULSE 87–114; RESP 17–38; TEMP 35.7–37.2; O2SAT 90–100; BMI 15.1
[2024-06-15] MEDS: heparin 5,000 unit/mL INJ 1 mL 5000 UNIT SUBCUT ×2 (04:48→15:06)
[2024-06-15] MEDS: piperacillin-tazobactam 3.375 GM in sodium chloride 0.9% (plus) 50 ML IV ×3 (04:50→20:59)
[2024-06-15 05:37] LABS: Basophils # 0.1 10^3/uL (0.0-0.1); Basophils % 0.6 %; Eosinophils # 0.5 10^3/uL (0.0-0.8); Eosinophils % 4.5 %; Hematocrit 33.6 % (37-53); Lymphocytes # 2.4 10^3/uL (0.8-4.8); Lymphocytes % 23.6 %; Mean Corpuscular HGB Conc 30.7 g/dL (30-55); Mean Corpuscular Hemoglobin 28.6 pg (27-33); Mean Corpuscular Volume 93.3 fl (82-101); Mean Platelet Volume 10.3 fL (7.4-10.4); Monocytes % 9.6 %; Neutrophils # 6.18 10^3/uL (1.8-7.7); Neutrophils % 61.5 %; Nucleated Red Blood Cells % 0 %; Platelet Count 587 10^3/cmm (157-399); Red Cell Distribution Width 17.1 % (12.1-15.1); White Blood Count 10.04 10^3/uL (3.29-11.43)
[2024-06-15 05:58] LABS: Alanine Aminotransferase 18 U/L (0-41); Albumin Level 3.6 g/dL (3.5-5.2); Alkaline Phosphatase 77 U/L (40-130); Anion Gap 14.9 (5-19); Aspartate Amino Transferase 22 U/L (0-40); Blood Urea Nitrogen 14 mg/dL (6-20); Calcium 9.3 mg/dL (8.5-10.5); Carbon Dioxide 30 mmol/L (22-29); Chloride 100 mmol/L (98-107); Creatinine Clr Calc Pharmacy 265.2775; Globulin 3.6 g/dL (1.3-4.6); Glomerular Filtration Rate 500.7 mL/min (90-130); Glucose 101 mg/dL (65-115); Osmolality Calculated 293 mOsm/kg (285-295); Potassium 3.9 mmol/L (3.5-5.1); Sodium 141 mmol/L (136-145); Total Bilirubin 0.2 mg/dL (0.15-1.2); Total Protein 7.2 g/dL (6.6-8.7)
[2024-06-15 05:59] LABS: Phosphorus 3.7 mg/dL (2.5-4.5)
[2024-06-15 06:04] LABS: Procalcitonin 0.18 ng/mL (0-0.5)
[2024-06-15 06:55] LABS: Folate Level > 20.0 ng/mL (4.5-32.2)
[2024-06-15] MEDS: guaiFENesin 100 mg/5 mL UDC 10 mL 600 MG PEG-TUBE ×3 (08:39→20:59)
[2024-06-15] MEDS: fidaxomicin 200 mg Tablet PO (08:39)
[2024-06-15] MEDS: RILUZOLE 50 MG 50 EACH PO ×2 (08:40→18:12)
[2024-06-15] MEDS: FAMOTIDINE 40 MG/5 ML 20 EACH PEG-TUBE ×2 (08:40→18:12)
[2024-06-15] MEDS: AZITHROMYCIN ADD-Vantage 500 MG in 0.9% NaCl ADD-Vantage 250 ML 250 MG IV (12:03)
--- NOTE | 2024-06-15 13:20 | PC.NURSE ---
Patients Sivla to bedside, assisted to BSC and then to patients chair. Bath given, oral care done, and tube feeding done per . Tolerated well. Dr. Contreras to bedside and plan of care discussed with patient and .
--- NOTE | 2024-06-15 15:51 | P.PN_ITS ---
Subjective 2 Subjective: No acute events overnight. Patient has remained hemodynamically stable and afebrile. Seen in ICU with spouse at bedside. He is able to tolerate his home CPAP. No further episodes of diarrhea. Tolerating his home schedule of tube feeds. Vitals/I&O/Wt Last Vital Signs Temp 96.3 F L 06/15/24 12:00 Pulse 104 H 06/15/24 14:00 Resp 27 H 06/15/24 14:00 BP 115/90 06/15/24 15:00 Pulse Ox 97 06/15/24 14:00 O2 Del Method BiPAP 06/15/24 10:00 06/15/24 06/15/24 06/15/24 06:59 14:59 22:59 Intake Total 170 / 1130 1999 Balance 170 / 1130 1999 Weight last 48 hrs Weight 46.5 kg Weight 43.908 kg Weight 43.908 kg Weight 43.772 kg Physical Exam 2 Narrative: General: Currently in a wheelchair, has BiPAP with nasal mask on. He is alert awake and oriented , appears to be intermittently nauseous HEENT: PERRLA, pupils bilaterally equal and reactive, pallors not present. Chronic erythema thickness over the right auricle Chest: Normal vesicular breath sounds, reduced air entry in the right lower lobe CVS: S1-S2 regular, no murmurs, no tachycardia, no gallops, no rubs Abdomen: Soft, nontender, PEG tube in place Neuro: ALS, chronically in a wheelchair, BiPAP dependent. Data 06/15/24 05:07 06/15/24 05:07 Micro: Microbiology 06/13/24 23:50 Urine Culture - Preliminary Urine,Clean Catch 06/13/24 22:40 Blood Culture - Preliminary Blood NEGATIVE TO DATE 06/13/24 22:15 Blood Culture - Preliminary Blood NEGATIVE TO DATE A&P Assessment and plan (1) Fever: (2) Leukocytosis: (3) Recurrent aspiration pneumonia: (4) Acute and chronic respiratory failure: (5) ALS (amyotrophic lateral sclerosis): Plan 53-year-old male with advancing ALS, last NIF noted to be at -19 as outpatient, history of recurrent aspiration pneumonias currently presenting with fever, increased fatigue malaise and leukocytosis of 22,000. Chest x-ray today shows persistence of multifocal infiltrates most notably in the right middle and lower lobes, overall appears to be unchanged compared to recent admission earlier this month. Of note his chest x-ray has continued to show bilateral infiltrates waxing and waning right or left side since earlier this year. This is thought to be related mainly to upper airway aspirations. Short antibiotic courses have been helpful in the past. Recently started on chronic suppression trial with azithromycin, however now has had leukocytosis and fever in spite of the same. Suspect him to be having aspiration pneumonia. On auscultation there is reduced air entry into the right side. Per personal interpretation of images he appears to be developing an area of bronchiectasis in the right lower lobe. Is a recent history of admission for C. difficile diarrhea for which she is on Dificid every other day. Plan: Monitor NIF daily. Recheck CBC and CMP. Appreciate chest x-ray, urinalysis. C. difficile negative. MRSA swab negative, respiratory viral panel negative. Follow-up blood cultures. Continue with IV Zosyn and add azithromycin for atypical coverage. Continue other chronic medications including fidaxomicin. CODE STATUS: Discussed in detail with the patient. He wants to remain full code. He is okay with mechanical ventilation if needed. Does not want tracheostomy. States if it seems that he is not coming off ventilator he would rather be converted to comfort care at that moment. Continue with home schedule of tube feeds Famotidine for PUD prophylaxis Of heparin 5000 every 12 hourly for DVT prophylaxis Plan for the day: Monitor NIF. Continue with current IV antibiotics. Follow-up with blood culture. Sputum culture to be taken when possible. Patient has remained afebrile over last 24 hours. Continue with current CPAP setting. If concerns for respiratory distress will plan for chest x-ray to rule out mucous plug. Continue with current settings of tube feeds. Can stop IV fluids. Increase free water flushes with tube feeds to 120 cc. [facility] Attestations 2 Medical Necessity Statement*: Requires further hospitalization for management of sepsis in setting of aspiration pneumonitis in a patient with ALS, CPAP dependent Diagnoses Fever R50.9 Leukocytosis D72.829 Recurrent aspiration pneumonia J69.0 Acute and chronic respiratory failure J96.20 ALS (amyotrophic lateral sclerosis) G12.21
[2024-06-15] MEDS: SINGULAIR 10 MG 10 EACH PEG-TUBE (18:13)
[2024-06-15] MEDS: GABAPENTIN 250 MG/5 ML 500 EACH PEG-TUBE (21:00)
[2024-06-15] MEDS: CETIRIZINE 5 MG/5 ML 10 EACH PEG-TUBE (21:00)
[2024-06-15] MEDS: NORTRIPTYLINE 10 MG/5 ML 30 EACH PEG-TUBE (21:00)
[2024-06-15] MEDS: SERTRALINE 20 MG/ML 50 EACH PEG-TUBE (21:01)
[2024-06-16] VITALS (30 sets, daily range): BP systolic 91–121; BP diastolic 66–84; PULSE 89–113; RESP 18–41; TEMP 36.3–36.9; O2SAT 96–98; BMI 15.3
[2024-06-16] MEDS: scopolamine 1.5 Patch 0.5 PATCH TRANSDERMA (00:47)
[2024-06-16] MEDS: piperacillin-tazobactam 3.375 GM in sodium chloride 0.9% (plus) 50 ML IV ×3 (04:49→20:45)
[2024-06-16] MEDS: heparin 5,000 unit/mL INJ 1 mL 5000 UNIT SUBCUT ×2 (04:49→15:29)
[2024-06-16 05:09] LABS: Basophils # 0.1 10^3/uL (0.0-0.1); Basophils % 0.9 %; Eosinophils # 0.7 10^3/uL (0.0-0.8); Eosinophils % 7.5 %; Hematocrit 32.7 % (37-53); Lymphocytes # 2.3 10^3/uL (0.8-4.8); Lymphocytes % 24.5 %; Mean Corpuscular HGB Conc 30.3 g/dL (30-55); Mean Corpuscular Hemoglobin 27.8 pg (27-33); Mean Corpuscular Volume 91.9 fl (82-101); Mean Platelet Volume 9.8 fL (7.4-10.4); Monocytes # 0.7 10^3/uL (0.2-0.9); Monocytes % 7.9 %; Neutrophils # 5.55 10^3/uL (1.8-7.7); Nucleated Red Blood Cells % 0 %; Platelet Count 559 10^3/cmm (157-399); Red Blood Count 3.56 10^6/uL (3.85-5.65); Red Cell Distribution Width 16.8 % (12.1-15.1); White Blood Count 9.39 10^3/uL (3.29-11.43)
[2024-06-16 05:31] LABS: Alanine Aminotransferase 20 U/L (0-41); Albumin Level 3.6 g/dL (3.5-5.2); Alkaline Phosphatase 73 U/L (40-130); Anion Gap 15.3 (5-19); Aspartate Amino Transferase 21 U/L (0-40); Blood Urea Nitrogen 12 mg/dL (6-20); Calcium 9.1 mg/dL (8.5-10.5); Carbon Dioxide 30 mmol/L (22-29); Chloride 105 mmol/L (98-107); Creatinine Clr Calc Pharmacy 280.9375; Glomerular Filtration Rate 500.7 mL/min (90-130); Glucose 101 mg/dL (65-115); Osmolality Calculated 302 mOsm/kg (285-295); Potassium 4.3 mmol/L (3.5-5.1); Sodium 146 mmol/L (136-145); Total Bilirubin 0.2 mg/dL (0.15-1.2); Total Protein 6.6 g/dL (6.6-8.7)
[2024-06-16] MEDS: RILUZOLE 50 MG 50 EACH PO ×2 (08:57→17:53)
[2024-06-16] MEDS: guaiFENesin 100 mg/5 mL UDC 10 mL 600 MG PEG-TUBE ×3 (08:57→20:24)
[2024-06-16] MEDS: FAMOTIDINE 40 MG/5 ML 20 EACH PEG-TUBE ×2 (08:57→17:53)
--- NOTE | 2024-06-16 09:52 | PC.RESP ---
Talked with pt. He said he was unable to form mouthseal for nif. He typed on his phone that he had [facility] and had the results sent to Dr. Keene
[2024-06-16] MEDS: dextrose 5%-sod chloride 0.9% 1,000 ML 50 ML IV (10:43)
[2024-06-16] MEDS: AZITHROMYCIN ADD-Vantage 500 MG in 0.9% NaCl ADD-Vantage 250 ML 250 MG IV (12:18)
--- NOTE | 2024-06-16 14:25 | PM.PN ---
Subjective Subjective: No acute events overnight. Patient has remained hemodynamically stable and afebrile. He is stable on his home BiPAP. Seen with spouse at bedside. Patient denies any new complaints Vitals/I&O/Wt Last Vital Signs Temp 97.6 F 06/16/24 12:00 Pulse 100 06/16/24 14:00 Resp 29 H 06/16/24 14:00 BP 107/77 06/16/24 14:00 Pulse Ox 96 06/16/24 12:00 O2 Del Method BiPAP 06/15/24 10:00 06/15/24 06/16/24 06/16/24 22:59 06:59 14:59 Intake Total 910 / 2910 110 / 3020 725 / 725 Balance 910 / 2910 110 / 3020 725 / 725 Weight last 48 hrs Weight 47 kg Weight 46.5 kg Physical Exam Narrative: General: Currently in a wheelchair, has BiPAP with nasal mask on. He is alert awake and oriented , appears to be intermittently nauseous HEENT: PERRLA, pupils bilaterally equal and reactive, pallors not present. Chronic erythema thickness over the right auricle Chest: Normal vesicular breath sounds, reduced air entry in the right lower lobe CVS: S1-S2 regular, no murmurs, no tachycardia, no gallops, no rubs Abdomen: Soft, nontender, PEG tube in place Neuro: ALS, chronically in a wheelchair, BiPAP dependent. Data 06/16/24 04:59 06/16/24 04:59 Micro: Microbiology 06/13/24 23:50 Urine Culture - Final Urine,Clean Catch 06/15/24 15:00 Legionella Urinary Antigen - Final Urine,Voided A&P Assessment and plan (1) Fever: (2) Leukocytosis: (3) Recurrent aspiration pneumonia: (4) Acute and chronic respiratory failure: (5) ALS (amyotrophic lateral sclerosis): Plan 53-year-old male with advancing ALS, last NIF noted to be at -19 as outpatient, history of recurrent aspiration pneumonias currently presenting with fever, increased fatigue malaise and leukocytosis of 22,000. Chest x-ray today shows persistence of multifocal infiltrates most notably in the right middle and lower lobes, overall appears to be unchanged compared to recent admission earlier this month. Of note his chest x-ray has continued to show bilateral infiltrates waxing and waning right or left side since earlier this year. This is thought to be related mainly to upper airway aspirations. Short antibiotic courses have been helpful in the past. Recently started on chronic suppression trial with azithromycin, however now has had leukocytosis and fever in spite of the same. Suspect him to be having aspiration pneumonia. On auscultation there is reduced air entry into the right side. Per personal interpretation of images he appears to be developing an area of bronchiectasis in the right lower lobe. Is a recent history of admission for C. difficile diarrhea for which she is on Dificid every other day. Plan: Monitor NIF daily. Recheck CBC and CMP. Appreciate chest x-ray, urinalysis. C. difficile negative. MRSA swab negative, respiratory viral panel negative. Follow-up blood cultures. Continue with IV Zosyn and add azithromycin for atypical coverage. Continue other chronic medications including fidaxomicin. CODE STATUS: Discussed in detail with the patient. He wants to remain full code. He is okay with mechanical ventilation if needed. Does not want tracheostomy. States if it seems that he is not coming off ventilator he would rather be converted to comfort care at that moment. Continue with home schedule of tube feeds Famotidine for PUD prophylaxis Of heparin 5000 every 12 hourly for DVT prophylaxis Plan for the day: Unable to perform MRI because of weakness. Continue to monitor Has remained afebrile. Leukocytosis has resolved. Continue with current Zosyn and azithromycin. Developing mild hypernatremia. Sodium up to 146. Start on D5 half NS and hour. Repeat BMP in evening. Continue with home dose of fidaxomicin. Transfer to [facility] floor. Attestations Medical Necessity Statement*: Requires further hospitalization for management of recurrent aspiration pneumonitis in a patient with baseline BiPAP dependent ALS, hyponatremia, PEG tube feed dependent Diagnoses Fever R50.9 Leukocytosis D72.829 Recurrent aspiration pneumonia J69.0 Acute and chronic respiratory failure J96.20 ALS (amyotrophic lateral sclerosis) G12.21
[2024-06-16 15:53] LABS: Blood Urea Nitrogen 13 mg/dL (6-20); Calcium 9.4 mg/dL (8.5-10.5); Carbon Dioxide 30 mmol/L (22-29); Chloride 102 mmol/L (98-107); Creatinine Clr Calc Pharmacy 283.9583; Glomerular Filtration Rate 500.7 mL/min (90-130); Glucose 81 mg/dL (65-115); Osmolality Calculated 295 mOsm/kg (285-295); Sodium 143 mmol/L (136-145)
[2024-06-16] MEDS: SINGULAIR 10 MG 10 EACH PEG-TUBE (17:54)
[2024-06-16] MEDS: CETIRIZINE 5 MG/5 ML 10 EACH PEG-TUBE (20:32)
[2024-06-16] MEDS: NORTRIPTYLINE 10 MG/5 ML 30 EACH PEG-TUBE (20:34)
[2024-06-16] MEDS: SERTRALINE 20 MG/ML 50 EACH PEG-TUBE (20:36)
[2024-06-16] MEDS: GABAPENTIN 250 MG/5 ML 500 EACH PEG-TUBE (20:41)
[2024-06-17] VITALS (28 sets, daily range): BP systolic 105–127; BP diastolic 70–93; PULSE 80–114; RESP 16–32; TEMP 36.7–37.4; O2SAT 93–99; BMI 14.2
[2024-06-17] MEDS: piperacillin-tazobactam 3.375 GM in sodium chloride 0.9% (plus) 50 ML IV ×3 (04:08→22:19)
[2024-06-17] MEDS: heparin 5,000 unit/mL INJ 1 mL 5000 UNIT SUBCUT (04:08)
[2024-06-17 05:09] LABS: Basophils # 0.1 10^3/uL (0.0-0.1); Basophils % 0.7 %; Eosinophils # 0.7 10^3/uL (0.0-0.8); Eosinophils % 8.3 %; Hematocrit 33.1 % (37-53); Lymphocytes # 2.2 10^3/uL (0.8-4.8); Lymphocytes % 25.1 %; Mean Corpuscular HGB Conc 30.2 g/dL (30-55); Mean Corpuscular Hemoglobin 28.7 pg (27-33); Mean Corpuscular Volume 94.8 fl (82-101); Mean Platelet Volume 10.2 fL (7.4-10.4); Monocytes # 0.7 10^3/uL (0.2-0.9); Neutrophils # 5.02 10^3/uL (1.8-7.7); Neutrophils % 57.7 %; Nucleated Red Blood Cells % 0 %; Platelet Count 553 10^3/cmm (157-399); Red Blood Count 3.49 10^6/uL (3.85-5.65); White Blood Count 8.71 10^3/uL (3.29-11.43)
[2024-06-17 05:28] LABS: Alanine Aminotransferase 17 U/L (0-41); Albumin Level 3.3 g/dL (3.5-5.2); Alkaline Phosphatase 66 U/L (40-130); Anion Gap 8.9 (5-19); Aspartate Amino Transferase 16 U/L (0-40); Blood Urea Nitrogen 11 mg/dL (6-20); Calcium 9.3 mg/dL (8.5-10.5); Carbon Dioxide 34 mmol/L (22-29); Chloride 104 mmol/L (98-107); Creatinine Clr Calc Pharmacy 283.9583; Globulin 2.9 g/dL (1.3-4.6); Glomerular Filtration Rate 500.7 mL/min (90-130); Glucose 92 mg/dL (65-115); Osmolality Calculated 295 mOsm/kg (285-295); Potassium 3.9 mmol/L (3.5-5.1); Sodium 143 mmol/L (136-145); Total Bilirubin 0.2 mg/dL (0.15-1.2); Total Protein 6.2 g/dL (6.6-8.7)
[2024-06-17 05:30] LABS: Magnesium 2.1 mg/dL (1.7-2.3)
[2024-06-17] MEDS: dextrose 5%-sod chloride 0.9% 1,000 ML 50 ML IV (06:27)
--- NOTE | 2024-06-17 08:46 | PC.RESP ---
pt unable to do nif
[2024-06-17] MEDS: RILUZOLE 50 MG 50 EACH PO ×2 (09:52→18:42)
[2024-06-17] MEDS: FAMOTIDINE 40 MG/5 ML 20 EACH PEG-TUBE ×2 (09:52→18:42)
[2024-06-17] MEDS: fidaxomicin 200 mg Tablet PO (10:10)
[2024-06-17] MEDS: GERITUSSIN 30 EACH PEG-TUBE ×3 (10:52→22:08)
--- NOTE | 2024-06-17 12:16 | PC.SOCIAL ---
IMM Updated Updated pt on IMM. No questions voiced. Provided pt a copy. Initialed, dated, & timed a copy & placed in chart.
[2024-06-17] MEDS: AZITHROMYCIN ADD-Vantage 500 MG in 0.9% NaCl ADD-Vantage 250 ML 250 MG IV (13:39)
[2024-06-17] MEDS: SINGULAIR 10 MG 10 EACH PEG-TUBE (18:41)
--- NOTE | 2024-06-17 19:07 | P.PN_ITS ---
Subjective 2 Subjective: He overall feels so-so/okay. Denies any new symptoms. Breathing is a little bit easier. Vitals/I&O/Wt Last Vital Signs Temp 98.1 F 06/17/24 06:31 Pulse 106 H 06/17/24 18:00 Resp 26 H 06/17/24 18:00 BP 127/89 06/17/24 17:00 Pulse Ox 93 06/17/24 08:45 O2 Del Method BiPAP 06/15/24 10:00 06/17/24 06/17/24 06/17/24 06:59 14:59 22:59 Intake Total 527.5 / 2771.667 1200 / 1200 650 / 1850 Balance 527.5 / 2771.667 1200 / 1200 650 / 1850 Weight last 48 hrs Weight 43.715 kg Weight 43.545 kg Weight 47 kg Physical Exam 2 Narrative: Accompanied by his at bedside on second visit. Const: COMMON NORMALS: patient oriented x3 and alert GENERAL APPEARANCE: c ooperative ORIENTATION/CONSCIOUSNESS: Yes awake OTHER: BiPAP on. HENMT: COMMON NORMALS: oropharynx normal Neck/C-Spine: COMMON NORMALS: no JVD Resp: COMMON NORMALS: normal respiratory effort AUSCULTATION: rhonchi (few) Cardio: COMMON NORMALS: no JVD, regular rhythm, S1 normal heart sound present, S2 normal heart sound present and No murmurs present (Cardio) RHYTHM: regular rhythm HEART SOUNDS: S1 normal heart sound present and S2 normal heart sound present GI: COMMON NORMALS: Normal to inspection, nondistended, normoactive bowel sounds present, Soft to palpation and non-tender PALPATION: Yes Soft to palpation Extremity: COMMON NORMALS: no joint enlargement and no pedal edema Neuro: COMMON NORMALS: patient oriented x3 and moves all extremities S ENSORIUM/ORIENTATION: Yes alert Skin: COMMON NORMALS: no rashes or lesions noted GENERAL SKIN EXAM: no rashes or lesions noted Data 06/17/24 04:20 06/17/24 04:20 Micro: Microbiology 06/13/24 23:50 Urine Culture - Final Urine,Clean Catch A&P Assessment and plan (1) Fever: (2) Leukocytosis: (3) Recurrent aspiration pneumonia: (4) Acute and chronic respiratory failure: (5) ALS (amyotrophic lateral sclerosis): Plan 53-year-old male with advancing ALS, last NIF noted to be at -19 as outpatient, history of recurrent aspiration pneumonias currently presenting with fever, increased fatigue malaise and leukocytosis of 22,000. Chest x-ray today shows persistence of multifocal infiltrates most notably in the right middle and lower lobes, overall appears to be unchanged compared to recent admission earlier this month. Of note his chest x-ray has continued to show bilateral infiltrates waxing and waning right or left side since earlier this year. This is thought to be related mainly to upper airway aspirations. Short antibiotic courses have been helpful in the past. Recently started on chronic suppression trial with azithromycin, however now has had leukocytosis and fever in spite of the same. Is a recent history of admission for C. difficile diarrhea for which she is on Dificid every other day. Aspiration pneumonia: Reviewed vitals, CBC. Currently afebrile, normal WBC. Urine Legionella antigens negative. Reviewed C. difficile, negative. He is overall feeling slightly better. Recurrent aspiration, currently with possible aspiration pneumonitis versus pneumonia. Does have some rhonchi, requested chest vest therapy. Will stop further IV fluid. Reassess blood counts. Check procalcitonin. Will revisit again in the morning as per discussion, as this may be aspiration pneumonitis, will consider discontinuation versus brief course of antibiotics. Revisited regarding tracheostomy which he has extensively considered both personally, with his family as well as ALS clinic, and on thoughtful consideration has not found that risks of tracheostomy would outweigh potential benefits. Reviewed RT note, discussed with nursing, caseworker protective services. Continue Zosyn, azithromycin for now. Continues with azithromycin suppression. With fidaxomicin suppression. Follow-up blood culture. Repeat CBC, chemistry. Continue with IV Zosyn and add azithromycin for atypical coverage. Continue other chronic medications including fidaxomicin. CODE STATUS: full code. He is okay with mechanical ventilation if needed. Does not want tracheostomy. States if it seems that he is not coming off ventilator he would rather be converted to comfort care at that moment. Continue with home schedule of tube feeds Famotidine for PUD prophylaxis Of heparin 5000 every 12 hourly for DVT prophylaxis Attestations 2 Medical Necessity Statement*: Continue admission for assessment management of aspiration pneumonia in the setting of chronic respiratory failure. Diagnoses Fever R50.9 Leukocytosis D72.829 Recurrent aspiration pneumonia J69.0 Acute and chronic respiratory failure J96.20 ALS (amyotrophic lateral sclerosis) G12.21
[2024-06-17] MEDS: albuterol 2.5 mg/3 mL Neb INHALATION (21:16)
[2024-06-17] MEDS: SERTRALINE 20 MG/ML 50 EACH PEG-TUBE (22:09)
[2024-06-17] MEDS: GABAPENTIN 250 MG/5 ML 500 EACH PEG-TUBE (22:12)
[2024-06-17] MEDS: NORTRIPTYLINE 10 MG/5 ML 30 EACH PEG-TUBE (22:15)
[2024-06-17] MEDS: CETIRIZINE 5 MG/5 ML 10 EACH PEG-TUBE (22:16)
[2024-06-18] VITALS (20 sets, daily range): BP systolic 101–127; BP diastolic 66–92; PULSE 84–113; RESP 15–25; TEMP 36.4; O2SAT 94–96; BMI 17.2
[2024-06-18] MEDS: piperacillin-tazobactam 3.375 GM in sodium chloride 0.9% (plus) 50 ML IV (04:12)
[2024-06-18] MEDS: heparin 5,000 unit/mL INJ 1 mL 5000 UNIT SUBCUT (04:14)
[2024-06-18 04:18] LABS: Basophils # 0.1 10^3/uL (0.0-0.1); Basophils % 0.8 %; Eosinophils # 0.6 10^3/uL (0.0-0.8); Eosinophils % 6.3 %; Hematocrit 30.7 % (37-53); Lymphocytes # 2.3 10^3/uL (0.8-4.8); Lymphocytes % 22.5 %; Mean Corpuscular Hemoglobin 28.5 pg (27-33); Mean Platelet Volume 10.1 fL (7.4-10.4); Monocytes # 0.7 10^3/uL (0.2-0.9); Monocytes % 7.3 %; Neutrophils # 6.41 10^3/uL (1.8-7.7); Neutrophils % 62.8 %; Nucleated Red Blood Cells % 0 %; Platelet Count 562 10^3/cmm (157-399); Red Blood Count 3.23 10^6/uL (3.85-5.65); Red Cell Distribution Width 16.9 % (12.1-15.1)
[2024-06-18 05:01] LABS: Anion Gap 13.8 (5-19); Blood Urea Nitrogen 8 mg/dL (6-20); Calcium 8.7 mg/dL (8.5-10.5); Carbon Dioxide 28 mmol/L (22-29); Chloride 105 mmol/L (98-107); Creatinine Clr Calc Pharmacy 264.1115; Glomerular Filtration Rate 500.7 mL/min (90-130); Glucose 95 mg/dL (65-115); Osmolality Calculated 294 mOsm/kg (285-295); Potassium 3.8 mmol/L (3.5-5.1); Sodium 143 mmol/L (136-145)
[2024-06-18 05:08] LABS: Procalcitonin 0.14 ng/mL (0-0.5)
[2024-06-18] MEDS: GERITUSSIN 30 EACH PEG-TUBE ×2 (08:17→21:36)
[2024-06-18] MEDS: FAMOTIDINE 40 MG/5 ML 20 EACH PEG-TUBE ×2 (08:18→17:11)
[2024-06-18] MEDS: RILUZOLE 50 MG 50 EACH PO ×2 (08:18→17:11)
--- NOTE | 2024-06-18 10:23 | PC.RESP ---
pt unable to perform NIF
[2024-06-18] MEDS: AZITHROMYCIN ADD-Vantage 500 MG in 0.9% NaCl ADD-Vantage 250 ML 250 MG IV (11:59)
--- NOTE | 2024-06-18 12:57 | PM.PN ---
Subjective Subjective: He is overall feeling better. Per history obtained from his he did have an episode of small aspiration last night. Secretions have been somewhat thicker. Vitals/I&O/Wt Last Vital Signs Temp 97.5 F L 06/18/24 12:33 Pulse 113 H 06/18/24 12:33 Resp 17 06/18/24 12:33 BP 120/74 06/18/24 12:33 Pulse Ox 96 06/18/24 10:17 O2 Del Method BiPAP 06/18/24 08:54 06/17/24 06/18/24 06/18/24 22:59 06:59 14:59 Intake Total 755 / 5 2004 Balance 755 / 5 2004 Weight last 48 hrs Weight 53 kg Weight 53 kg Weight 43.715 kg Weight 43.545 kg Physical Exam Narrative: Accompanied by his on second visit. Const: COMMON NORMALS: patient oriented x3 and alert GENERAL APPEARANCE: cooperative ORIENTATION/CONSCIOUSNESS: Yes awake OTHER: BiPAP on. HENMT: COMMON NORMALS: oropharynx normal Neck/C-Spine: COMMON NORMALS: no JVD Resp: COMMON NORMALS: normal respiratory effort AUSCULTATION: rhonchi (few) Cardio: COMMON NORMALS: no JVD, regular rhythm, S1 normal heart sound present, S2 normal heart sound present and No murmurs present (Cardio) RHYTHM: regular rhythm HEART SOUNDS: S1 normal heart sound present and S2 normal heart sound present GI: COMMON NORMALS: Normal to inspection, nondistended, normoactive bowel sounds present, Soft to palpation and non-tender PALPATION: Yes Soft to palpation Extremity: COMMON NORMALS: no joint enlargement and no pedal edema Neuro: COMMON NORMALS: patient oriented x3 and moves all extremities SENSORIUM/ORIENTATION: Yes alert Skin: COMMON NORMALS: no rashes or lesions noted GENERAL SKIN EXAM: no rashes or lesions noted Data 06/18/24 03:00 06/18/24 03:00 A&P Assessment and plan (1) Fever: (2) Leukocytosis: (3) Recurrent aspiration pneumonia: (4) Acute and chronic respiratory failure: (5) ALS (amyotrophic lateral sclerosis): Plan 53-year-old male with advancing ALS, last NIF noted to be at -19 as outpatient, history of recurrent aspiration pneumonias x-ray has continued to show bilateral infiltrates waxing and waning right or left side since earlier this year. This is thought to be related mainly to upper airway aspirations. Short antibiotic courses have been helpful in the past. Recently started on chronic suppression trial with azithromycin, however now has had leukocytosis and fever in spite of the same. Is a recent history of admission for C. difficile diarrhea for which she is on Dificid every other day. Aspiration pneumonia: Oxygenation has remained steady with his usual BiPAP support. He is afebrile, without leukocytosis, reviewed vitals, CBC, BMP, procalcitonin. White count is normal but did come up to 10.2. On second visit he is accompanied by his . They are concerned about the rise although he is otherwise doing well. Procalcitonin reviewed and is 0.14. He has some mild chronic tachycardia which does not appear different from his baseline. We discussed consideration of discharge home today with discontinuation of antibiotic with suspected aspiration/chemical pneumonitis, given risks of additional infection will remain in the hospital, with concern regarding some rise in the white count patient his would like to discontinue the antibiotic here with reassessment tomorrow prior to discharge. In the meantime continue chest vest, expectorant, his brought in his cough machine, resume. Additionally her IV fluid has been stopped, resume water flushes as tolerating starting at 2 ounces every hour, possibly increasing if in case he does not get too bloated. Per history obtained from his he had somewhat decreased accretions last night had a small episode of aspiration. Discussed with nursing, rehabilitation caseworker. Rhonchi so far have resolved. Stop Zosyn. Continue chronic suppression with azithromycin. Chronic suppression with fidaxomicin. On 06/17 revisiting regarding tracheostomy which he has extensively considered both personally, with his family as well as ALS clinic, and on thoughtful consideration has not found that risks of tracheostomy would outweigh potential benefits. Continue azithromycin for now. Continues with azithromycin suppression. Monitor for risk of C. difficile. With fidaxomicin suppression. Follow-up blood culture. Repeat CBC, chemistry. Consider repeat chest x-ray but hold off for now unless there is worsening of his condition. Continue care on medical surgical floor with intermediate care. Discussed with warehouse order selector. Continue with IV Zosyn and add azithromycin for atypical coverage. Continue other chronic medications including fidaxomicin. CODE STATUS: full code. He is okay with mechanical ventilation if needed. Does not want tracheostomy. States if it seems that he is not coming off ventilator he would rather be converted to comfort care at that moment. Continue with home schedule of tube feeds Famotidine for PUD prophylaxis Of heparin 5000 every 12 hourly for DVT prophylaxis Attestations Medical Necessity Statement*: Continue admission for assessment management of aspiration pneumonitis in the setting of chronic respiratory failure, recurrent C. difficile. Diagnoses Fever R50.9 Leukocytosis D72.829 Recurrent aspiration pneumonia J69.0 Acute and chronic respiratory failure J96.20 ALS (amyotrophic lateral sclerosis) G12.21
[2024-06-18] MEDS: albuterol 2.5 mg/3 mL Neb INHALATION ×2 (14:14→20:38)
[2024-06-18] MEDS: SINGULAIR 10 MG 10 EACH PEG-TUBE (17:11)
[2024-06-18] MEDS: GABAPENTIN 250 MG/5 ML 500 EACH PEG-TUBE (21:33)
[2024-06-18] MEDS: SERTRALINE 20 MG/ML 50 EACH PEG-TUBE (21:38)
[2024-06-18] MEDS: CETIRIZINE 5 MG/5 ML 10 EACH PEG-TUBE (21:40)
[2024-06-18] MEDS: NORTRIPTYLINE 10 MG/5 ML 30 EACH PEG-TUBE (21:41)
[2024-06-19] VITALS (9 sets, daily range): BP systolic 109–131; BP diastolic 78–90; PULSE 78–95; RESP 18–23; TEMP 36.8–36.9; O2SAT 97
[2024-06-19 05:17] LABS: Basophils # 0.1 10^3/uL (0.0-0.1); Eosinophils # 0.8 10^3/uL (0.0-0.8); Eosinophils % 8.7 %; Hematocrit 32.6 % (37-53); Lymphocytes # 2.4 10^3/uL (0.8-4.8); Lymphocytes % 27.3 %; Mean Corpuscular HGB Conc 30.1 g/dL (30-55); Mean Corpuscular Hemoglobin 28.7 pg (27-33); Mean Corpuscular Volume 95.3 fl (82-101); Mean Platelet Volume 10.1 fL (7.4-10.4); Monocytes # 0.7 10^3/uL (0.2-0.9); Monocytes % 7.4 %; Neutrophils # 4.92 10^3/uL (1.8-7.7); Neutrophils % 55.4 %; Nucleated Red Blood Cells % 0 %; Platelet Count 544 10^3/cmm (157-399); Red Blood Count 3.42 10^6/uL (3.85-5.65); Red Cell Distribution Width 17.2 % (12.1-15.1); White Blood Count 8.89 10^3/uL (3.29-11.43)
[2024-06-19 05:39] LABS: Anion Gap 13.1 (5-19); Blood Urea Nitrogen 9 mg/dL (6-20); Calcium 8.9 mg/dL (8.5-10.5); Carbon Dioxide 30 mmol/L (22-29); Chloride 103 mmol/L (98-107); Creatinine Clr Calc Pharmacy 320.2083; Glomerular Filtration Rate 500.7 mL/min (90-130); Glucose 85 mg/dL (65-115); Osmolality Calculated 292 mOsm/kg (285-295); Potassium 4.1 mmol/L (3.5-5.1); Sodium 142 mmol/L (136-145)
[2024-06-19] MEDS: fidaxomicin 200 mg Tablet PO (08:13)
[2024-06-19] MEDS: GERITUSSIN 30 EACH PEG-TUBE (08:14)
[2024-06-19] MEDS: RILUZOLE 50 MG 50 EACH PO (08:15)
[2024-06-19] MEDS: FAMOTIDINE 40 MG/5 ML 20 EACH PEG-TUBE (08:15)
--- NOTE | 2024-06-19 09:17 | P.DS_ITS ---
Discharge Providers Date of Admission: 06/13/24 21:33 Date of Discharge: June 19, 2024 Attending Provider at Admission: Jossy Keene MD Attending Provider at Discharge: Isaías Abbott Primary Care Provider: MORENO Ferrara Diagnoses at Discharge Discharge Diagnosis (1) Fever: Status: Acute (2) Leukocytosis: Status: Acute (3) Recurrent aspiration pneumonia: Status: Acute (4) Acute and chronic respiratory failure: Status: Acute (5) ALS (amyotrophic lateral sclerosis): Status: Acute Reason for Visit Reason for Visit: Abd Pain\Fever Brief History: Silvestre Espinosa is a 53 year old male with a past medical history of progressive ALS, last NIF of , increasingly requiring extended times on his BiPAP at home presents to the hospital with fever malaise and nausea. Patient has had recurrent admissions here for aspiration pneumonia and C. difficile. 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 difficile afterwards as well. He is currently on Dificid every other day. He has recently been placed on trial of chronic suppression for recurrent pneumonias with antibiotics. Azithromycin 250 mg p.o. daily was trialed, he started treatment earlier this week, however has been having fever 100.9 Fahrenheit along with symptoms of malaise and nausea. Patient has a PEG tube for which he feeds exclusively. There have been no recent changes in his bowel habits. He has been compliant with chest vest, nebulization, antihistamines and s copolamine patch in an attempt to try to reduce upper airway aspiration but has continued to have breakthrough infections regardless. Hospital Course Hospital Course He was admitted and treated for suspected aspiration pneumonia with Zosyn, continued on azithromycin as well as continued on Pradaxa mycin suppression. Continued with expectorant therapy and was resumed with chest vest and cough machine. She had no further recurrence of fever with resolution of white count, oxygenation remained at baseline, lungs are sounding clear and subjectively he had improved. With reassessment of procalcitonin 0.14 with Zosyn is discontinued with resolution of possible aspiration pneumonia versus aspiration pneumonitis. He continues to do well, and feels ready to return home. He is at risk of recurrent aspiration events and associated complications as well as readmission. He has given extensive consideration to additional options like tracheostomy, including discussing it with his ALS clinic and doing research including with ALS support groups and has come to the conclusion that with limited potential benefits and significant risks associated he would not be trying to pursue it. At discharge he is continued on suppression with azithromycin and fidaxomicin. Physical Exam Const: COMMON NORMALS: patient oriented x3 and alert GENERAL APPEARANCE: cooperative ORIENTATION/CONSCIOUSNESS: Yes awake OTHER: BiPAP on. HENMT: COMMON NORMALS: oropharynx normal Neck/C-Spine: COMMON NORMALS: no JVD Resp: COMMON NORMALS: normal respiratory effort AUSCULTATION: rhonchi (few) Cardio: COMMON NORMALS: no JVD, regular rhythm, S1 normal heart sound present, S2 normal heart sound present and No murmurs present (Cardio) RHYTHM: regular rhythm HEART SOUNDS: S1 normal heart sound present and S2 normal heart sound present GI: COMMON NORMALS: Normal to inspection, nondistended, normoactive bowel sounds present, Soft to palpation and non-tender PALPATION: Yes Soft to palpation Extremity: COMMON NORMALS: no joint enlargement and no pedal edema Neuro: COMMON NORMALS: patient oriented x3 and moves all extremities SENSORIUM/ORIENTATION: Yes alert Skin: COMMON NORMALS: no rashes or lesions noted GENERAL SKIN EXAM: no rashes or lesions noted Discharge Data Studies Completed and Pending Completed Studies During Hospitalization Category Date Time Status CXRP [XR chest 1V portable [id number]] AM LABS Exams 06/14/24 04:00 Completed XR chest 1V portable [id number] Stat Exams 06/13/24 18:29 Completed Pending at discharge Category Date Time Status Basic Metabolic Panel AM LABS Lab 06/20/24 04:00 Ordered Complete Blood Count w/Auto AM LABS Lab 06/20/24 04:00 Ordered Sputum Culture and Gram Stain Routine Lab 06/13/24 22:04 Uncollected Radiology Impressions Chest X-Ray 06/14/24 04:00 IMPRESSION: Stable pulmonary infiltrates. Laboratory Results WBC 8.89 10^3/uL (3.29-11.43) 06/19/24 02:59 RBC 3.42 10^6/uL (3.85-5.65) L 06/19/24 02:59 Hgb 9.80 g/dL (11.27-16.99) L 06/19/24 02:59 Hct 32.6 % (37-53) L 06/19/24 02:59 MCV 95.3 fl (82-101) 06/19/24 02:59 MCH 28.7 pg (27-33) 06/19/24 02:59 MCHC 30.1 g/dL (30-55) 06/19/24 02:59 RDW 17.2 % (12.1-15.1) H 06/19/24 02:59 Plt Count 544 10^3/cmm (157-399) H 06/19/24 02:59 MPV 10.1 fL (7.4-10.4) 06/19/24 02:59 Neut % (Auto) 55.4 % 06/19/24 02:59 Lymph % (Auto) 27.3 % 06/19/24 02:59 [place] % (Auto) 7.4 % 06/19/24 02:59 Eos % (Auto) 8.7 % 06/19/24 02:59 Baso % (Auto) 1.0 % 06/19/24 02:59 Neut # (Auto) 4.92 10^3/uL (1.8-7.7) 06/19/24 02:59 Lymph # (Auto) 2.4 10^3/uL (0.8-4.8) 06/19/24 02:59 [place] # (Auto) 0.7 10^3/uL (0.2-0.9) 06/19/24 02:59 Eos # (Auto) 0.8 10^3/uL (0.0-0.8) 06/19/24 02:59 Baso # (Auto) 0.1 10^3/uL (0.0-0.1) 06/19/24 02:59 Nucleated RBC % (auto) 0 % 06/19/24 02:59 Nucleated RBCs # 0.0 /100WBC 06/19/24 02:59 Sodium 142 mmol/L (136-145) 06/19/24 02:59 Potassium 4.1 mmol/L (3.5-5.1) 06/19/24 02:59 Chloride 103 mmol/L (98-107) 06/19/24 02:59 Carbon Dioxide 30 mmol/L (22-29) H 06/19/24 02:59 Anion Gap 13.1 (5-19) 06/19/24 02:59 BUN 9 mg/dL (6-20) 06/19/24 02:59 Creatinine 0.2 mg/dL (0.7-1.2) L 06/19/24 02:59 GFR Calculation 500.7 mL/min (90-130) H 06/19/24 02:59 Glucose 85 mg/dL (65-115) 06/19/24 02:59 Estimat Average Glucose 97 06/14/24 13:15 Hemoglobin A1c 5.0 % (4.0-6.0) 06/14/24 13:15 Calculated Osmolality 292 mOsm/kg (285-295) 06/19/24 02:59 Calcium 8.9 mg/dL (8.5-10.5) 06/19/24 02:59 Phosphorus 3.7 mg/dL (2.5-4.5) 06/15/24 05:07 Magnesium 2.1 mg/dL (1.7-2.3) 06/17/24 04:20 Iron 25 ug/dL (59-158) L 06/14/24 13:15 TIBC 197 mcg/dl 06/14/24 13:15 % Saturation 12.6 % (20-50) L 06/14/24 13:15 Unsat Iron Binding 172 ug/dL (112-347) 06/14/24 13:15 Total Bilirubin 0.2 mg/dL (0.15-1.2) 06/17/24 04:20 AST 16 U/L (0-40) 06/17/24 04:20 ALT 17 U/L (0-41) 06/17/24 04:20 Alkaline Phosphatase 66 U/L (40-130) 06/17/24 04:20 Total Protein 6.2 g/dL (6.6-8.7) L 06/17/24 04:20 Albumin 3.3 g/dL (3.5-5.2) L 06/17/24 04:20 Globulin 2.9 g/dL (1.3-4.6) 06/17/24 04:20 Lipase 27 U/L (13-60) 06/13/24 18:21 Vitamin B12 > 2000 pg/mL (232-1245) H 06/14/24 13:15 Folate > 20.0 ng/mL (4.5-32.2) 06/15/24 05:07 Procalcitonin 0.14 ng/mL (0-0.5) 06/18/24 03:00 TSH 1.43 uIU/mL (0.27-4.20) 06/14/24 13:15 Urine Color Dark yellow (Yellow) A 06/13/24 23:50 Urine Appearance Clear (CLEAR) 06/13/24 23:50 Urine pH 5.5 (5-7) 06/13/24 23:50 Ur Specific [place] 1.035 (1.005-1.030) H 06/13/24 23:50 Urine Protein 1+ (Negative) A 06/13/24 23:50 Urine Glucose (UA) Negative (Normal) 06/13/24 23:50 Urine Ketones 1+ (Negative) H 06/13/24 23:50 Urine Blood 2+ (Negative) A 06/13/24 23:50 Urine Nitrate Negative (Negative) 06/13/24 23:50 Urine Bilirubin Negative (Negative) 06/13/24 23:50 Urine Urobilinogen 1.0 mg/dL (Negative) 06/13/24 23:50 Ur Leukocyte Esterase Negative (Negative) 06/13/24 23:50 Urine RBC 21-50 /hpf (0-2) H 06/13/24 23:50 Urine WBC 0-5 /hpf (0-5) 06/13/24 23:50 Ur Squamous Epith Cells 0-5 /hpf (0-5) 06/13/24 23:50 Triple Phos Crystals 15-25 /hpf H 06/13/24 23:50 Urine Bacteria None seen /hpf (NONE) 06/13/24 23:50 Hyaline Casts 2.46 /lpf 06/13/24 23:50 Nasal MRSA (PCR) Not detected (Negative) 06/13/24 23:50 Adenovirus (PCR) Not detected (NOT DETECT) 06/13/24 23:50 C. pneumoniae DNA (PCR) Not detected (NOT DETECT) 06/13/24 23:50 C. difficile (PCR) Negative (Negative) 06/13/24 19:19 Coronavirus 229E (PCR) Not detected (NOT DETECT) 06/13/24 23:50 Human Metapneumovir PCR Not detected (NOT DETECT) 06/13/24 23:50 Influenza A (H1) PCR Not detected (NOT DETECT) 06/13/24 23:50 Influ A (H1/09) PCR Not detected (NOT DETECT) 06/13/24 23:50 Influenza A (H3) PCR Not detected (NOT DETECT) 06/13/24 23:50 Influenza Type A (PCR) Not detected (NOT DETECT) 06/13/24 23:50 Influenza Type B (PCR) Not detected (NOT DETECT) 06/13/24 23:50 M. pneumoniae (PCR) Not detected (NOT DETECT) 06/13/24 23:50 Parainfluenza 1 (PCR) Not detected (NOT DETECT) 06/13/24 23:50 Parainfluenza 2 (PCR) Not detected (NOT DETECT) 06/13/24 23:50 Parainfluenza 3 (PCR) Not detected (NOT DETECT) 06/13/24 23:50 Parainfluenza 4 (PCR) Not detected (NOT DETECT) 06/13/24 23:50 RSV Type A (PCR) Not detected (NOT DETECT) 06/13/24 23:50 RSV Type B (PCR) Not detected (NOT DETECT) 06/13/24 23:50 Entero/Rhino (PCR) Not detected (NOT DETECT) 06/13/24 23:50 SARS-CoV-2 (PCR) Not detected (NOT DETECT) 06/13/24 23:50 Vitals Last Vital Signs Temp 98.5 F 06/19/24 09:01 Pulse 95 06/19/24 09:01 Resp 22 H 06/19/24 06:11 BP 122/85 06/19/24 09:01 Pulse Ox 97 06/19/24 09:01 O2 Del Method BiPAP 06/19/24 09:01 Discharge Plan Discharge Patient Disposition: Home Condition: Stable Prescriptions: Continued sertraline [Zoloft] 20 mg/mL concentrate 50 mg feeding tube BEDTIME Rx Instructions: 2.5 ml at bedtime per (there are no dose/frequency instructions on bottle) Dificid 200 mg tablet 200 mg feeding tube Q48H 30 Days Qty: 15 3RF Rx Instructions: 1 tablet every other day for chronic suppression azithromycin 250 mg tablet 250 mg PO DAILY 30 Days Qty: 30 3RF Rx Instructions: start on day 2 of therapy cetirizine 1 mg/mL Solution 10 mg PO BEDTIME Rx Instructions: 10 ml Chlorpheniramine Allergy 4 mg peg-tube DAILY Singulair 10 mg peg-tube DAILY famotidine 40 mg/5 mL (8 mg/mL) Suspension For Reconstitution 20 mg PO BID Rx Instructions: 2.5 ml gabapentin 250 mg/5 mL Solution 500 mg PO BEDTIME Rx Instructions: 10 ml riluzole 50 mg Tablet 50 mg PO BID Rx Instructions: administer on an empty stomach, at least 1 hour before or 2 hours after food/meal(s) nortriptyline 10 mg/5 mL Solution 30 mg feeding tube BEDTIME scopolamine base 1 mg over 3 days Patch 3 Day 0.5 patch TRANSDERMAL Q2D acetaminophen 500 mg/15 mL Liquid 1,000 mg feeding tube Q4-5H PRN (Reason: Fever) guaifenesin [Jing-Tussin] 100 mg/5 mL Liquid 600 mg PO TID Discharge Orders: Discharge Order (Routine); Ordered 06/19/24 Ordered By: Isaías Abbott Referrals: Chel Weinstein FNP [Primary Care Provider] - 4-7 days Activity Restrictions/Additional Instructions: Resume follow up with your usual providers. Continue aspiration precautions. Seek medical attention in case of worsening or new concerning symptoms. Discharge Attestations Time Spent in Discharge Care*: greater than 30 min Status at Discharge: Cognitive status at discharge: cognitively intact , Behavioral status at discharge: cooperative , Quality Metrics Clinical Quality Measures [ No reported AMI, CVA or VTE this stay] Coding Level of Care Code 75085 Total time (in minutes) for Discharge: 40 Diagnoses Fever R50.9 Leukocytosis D72.829 Recurrent aspiration pneumonia J69.0 Acute and chronic respiratory failure J96.20 ALS (amyotrophic lateral sclerosis) G12.21
--- NOTE | 2024-06-19 11:18 | PC.SOCIAL ---
IMM Updated Updated pt on IMM. No questions voiced. Provided pt a copy. Initialed, dated, & timed copy in chart.
--- NOTE | 2024-06-19 14:44 | PC.NURSE ---
Patient was discharged with all discharge instructions and home medications. IV was removed and patient left with their significant other.
== END 2024-06-19 10:30 | disposition home or self-care (01) | DRG 177 ==
LOC: ER 21:21 → ICU 21:33
PROVIDERS: Emergency Medicine; Student in an Organized Health Care Education/Training Program; Admitting Provider Student in an Organized Health Care Education/Training Program; Emergency Provider Emergency Medicine; PCP Nurse Practitioner; Visit Provider Internal Medicine
DX: J69.0 Pneumonitis due to inhalation of food and vomit (principal); J96.20 Acute and chronic respiratory failure, unspecified whether with hypoxia or hypercapnia; G12.21 Amyotrophic lateral sclerosis; E87.1 Hypo-osmolality and hyponatremia; D63.8 Anemia in other chronic diseases classified elsewhere; F32.A Depression, unspecified; G62.9 Polyneuropathy, unspecified; J47.9 Bronchiectasis, uncomplicated; B96.89 Other specified bacterial agents as the cause of diseases classified elsewhere; R00.0 Tachycardia, unspecified; Z11.52 Encounter for screening for COVID-19; Z99.3 Dependence on wheelchair; Z93.1 Gastrostomy status; Z87.01 Personal history of pneumonia (recurrent)
CPT/HCPCS: 36415; 71045; 80048; 80053; 81001; 82607; 82746; 83036; 83540; 83550; 83690; 83735; 84100; 84145; 84443; 85025; 87040; 87086; 87449; 87486; 87493; 87581; 87633; 93005; 94640; 94664; 94669; 96365; 96372; 96376; 99285; J0456; J1644; J2405; J2543; J7042; J7050; J7613

== ENCOUNTER 2024-06-30 12:03 | Emergency (ER) | payer OTHER, SELFPAY ==
[2024-06-30 12:07] VITALS: BP 103/72; PULSE 113; RESP 28; TEMP 36.3; O2SAT 98; BMI 14.3
--- NOTE | 2024-06-30 12:33 | ECG_ITS ---
[facility] Test Date: 2024-06-30 Pat Name: Silvestre Espinosa Department: Room: Gender: Male Sql Report Analyst: : 1970 Requested By: Francoise Gramajo Order Number: [id number] Elza MD: Maikel Cardoza M.D. Measurements Intervals [place] Rate: 115 P: 90 CO: 142 QRS: 60 QRSD: 80 T: 83 QT: 321 QTc: 445 Interpretive Statements SINUS TACHYCARDIA ABNORMAL RHYTHM ECG Compared to ECG 06/13/2024 22:10:00 No significant changes Electronically Signed On 06-30-2024 22:23:00 SLOOP CAPTAIN by Maikel Cardoza M.D. [email or web address]
--- NOTE | 2024-06-30 12:38 | XRR_ITS ---
PROCEDURE INFORMATION: Exam: XR Chest Exam date and time: 06/30/2024 12:46 PM Age: 53 years old Clinical indication: Shortness of breath TECHNIQUE: Imaging protocol: Radiologic exam of the chest. Views: 1 view. COMPARISON: CR XR chest 1V portable [id number] 06/14/2024 6:57 AM FINDINGS: Lungs: There is faint nodular infiltrate involving the right lower lung field. The left lung is clear. Pleural spaces: Unremarkable. No pleural effusion. No pneumothorax. Heart/Mediastinum: Unremarkable. No cardiomegaly. Bones/joints: Unremarkable. XR/XR chest 1V portable [id number] IMPRESSION: Right basilar infiltrate has improved somewhat over the past few weeks
--- NOTE | 2024-06-30 12:39 | ED_ITS ---
HPI - SOB/Dyspnea 2 General: Chief Complaint: Shortness of Breath/Dyspnea Stated Complaint: sob Time Seen by Provider: 06/30/24 12:21 History of Present Illness: HPI Narrative: 53-year-old man with a history of ALS an d chronic respiratory failure on nasal BiPAP at all times who presents emergency room today with shortness of breath and tachycardia. He had had some nasal plugging and had [facility] and [facility] had [facility] quite a bit of material from his nose and he is now breathing a little better. However he did not sleep very well last night. Also he has been having a little bit worsening tachypnea. had become concerned that maybe he has CO2 retention. [facility] therapist come [facility] to adjust his BiPAP. Concerned that that has not been adjusted In some time now. No fevers. Related Data Home Medications Medication Instructions Recorded Confirmed sertraline 20 mg/mL oral 50 mg feeding tube BEDTIME 05/16/23 06/30/24 concentrate (Zoloft) cetirizine 1 mg/mL oral solution 10 mg PO BEDTIME 10/16/23 06/30/24 famotidine 40 mg/5 mL (8 mg/mL) 20 mg PO BID 12/13/23 06/30/24 oral suspension gabapentin 250 mg/5 mL oral 500 mg PO BEDTIME 12/13/23 06/30/24 solution acetaminophen 500 mg/15 mL oral 1,000 mg feeding tube Q4-5H PRN 01/08/24 06/30/24 liquid Fever guaifenesin 100 mg/5 mL oral 600 mg PO TID 01/08/24 06/30/24 liquid (Jing-Tussin) nortriptyline 10 mg/5 mL oral 30 mg feeding tube BEDTIME 01/08/24 06/30/24 solution riluzole 50 mg tablet 50 mg PO BID 01/08/24 06/30/24 scopolamine base 1 mg over 3 days 0.5 patch transdermal Q2D 01/08/24 06/30/24 transdermal patch Chlorpheniramine Allergy 4 mg peg-tube QAM 05/12/24 06/30/24 azelastine 137 mcg (0.1 %) nasal 1 spray intranasal BID 06/30/24 06/30/24 spray montelukast 10 mg tablet 10 mg PO DAILY 06/30/24 06/30/24 (Singulair) Previous Rx's Medication Instructions Recorded azithromycin 250 mg tablet 250 mg PO DAILY chronic 06/10/24 suppression 30 days #30 tabs fidaxomicin 200 mg tablet (Dificid) 200 mg feeding tube Q48H 30 days 06/10/24 #15 tabs tobramycin 300 mg/5 mL in 0.225 % 300 mg (5 mL) inhalation BID 28 06/25/24 sodium chloride for nebulization days #280 mL Allergies Allergy/AdvReac Type Severity Reaction Status Date / Time No Known Allergies Allergy Verified 06/30/24 12:19 FOR[facility]LY [facility] ED 2 PFS: Medical History 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 difficile enteritis Ulcerative (chronic) enterocolitis ALS (amyotrophic lateral sclerosis) Diagnosed in 2019 Surgical History History of oral surgery History of esophageal surgery Family History Denies family history of Diabetes Hypertension Social History Smoking and tobacco/nicotine status: never used tobacco/nicotine Alcohol intake: never Substance/Drug Use: never Physical Exam 2 Narrative: EXAM NARRATIVE: General: Alert, no acute distress. Cachexia Skin: Warm, dry. Head: Normocephalic, atraumatic. Neck: Supple, trachea midline. Eye: Extraocular movements are intact. Ears, nose, mouth and throat: mucosa moist. Cardiovascular: Regular, tachycardic, normal peripheral perfusion. Respiratory: Coarse lung sounds, patient is on nasal BiPAP. Gastrointestinal: Soft, Nontender, Non distended Musculoskeletal: no deformity. Neurological: Alert and oriented, No new focal neurological deficit observed. Patient has generalized weakness and muscle deterioration associated with his ALS. Psychiatric: Cooperative, appropriate mood & affect. Course 2 Vital Signs: Vital signs: Vital Signs Temperature 97.4 F L 06/30/24 12:07 Pulse Rate 118 H 06/30/24 15:27 Respiratory Rate 28 H 06/30/24 12:07 Blood Pressure 103/72 06/30/24 12:07 Pulse Oximetry 95 06/30/24 15:27 Oxygen Delivery Me thod BiPAP 06/30/24 15:27 MDM - SOB/Dyspnea Medical Decision Making Differential diagnosis for patient with shortness of breath includes but is not limited to and based on the above HPI, review of systems and physical exam: Pneumonia. Bronchitis. Asthma or COPD with acute exacerbation. Acute coronary syndrome / MS. Pulmonary embolism. Anxiety. Congestive heart failure. Viral infections including influenza and Covid-19. Atrial fibrillation. Anxiety. Pleural effusion. Pneumothorax. Orders placed to evaluate differential diagnosis based on the above differential, HPI and physical exam AB.4 on his home BiPAP. Very mild CO2 retention which is comparable to previous ABG. He definitely seems compensated at this point Lab Review: Laboratory results were reviewed and interpreted by myself the emergency room physician. White count is slightly elevated again today. Hemoglobin stable at 12.9. BUN/creatinine are stable at 16 and 0.2. Liver enzymes are normal. Chest x-ray: Improvement in the infiltrates in the right lower lung. This was reviewed and interpreted by myself the emergency room physician. I also reviewed the radiology report. I reviewed the patient's medical record. Reexamination: Patient remained stable. No increased work of breathing. No altered mental status. No focal motor deficits. Consultation: I spoke with Dr. Keene who follows with the patient in clinic and has admitted him multiple times as well. I asked her to see him in the emergency room. They hope to go home but his white count is up a little bit. She saw him and has ordered an echo. We will get this done in the emergency room and then she can follow-up with the read later. This is secondary to his chronic tachycardia. Assessment and plan: ALS Weakness Chronic respiratory failure Tachycardia Nasal congestion - Discharged home - Discussed plan with patient. Answered any questions. - Evaluation and treatment of this problem were appropriate in the emergency setting. Lab Data 06/30/24 13:19 06/30/24 13:19 Labs/Radiology: Radiology Impressions Chest X-Ray 06/30/24 12:38 IMPRESSION: Right basilar infiltrate has improved somewhat over the past few weeks Laboratory Results WBC 16.47 10^3/uL (3.29-11.43) H 06/30/24 13:19 RBC 4.51 10^6/uL (3.85-5.65) 06/30/24 13:19 Hgb 12.90 g/dL (11.27-16.99) 06/30/24 13:19 Hct 42.5 % (37-53) 06/30/24 13:19 MCV 94.2 fl (82-101) 06/30/24 13:19 MCH 28.6 pg (27-33) 06/30/24 13:19 MCHC 30.4 g/dL (30-55) 06/30/24 13:19 RDW 17.0 % (12.1-15.1) H 06/30/24 13:19 Plt Count 595 10^3/cmm (157-399) H 06/30/24 13:19 MPV 10.2 fL (7.4-10.4) 06/30/24 13:19 Neut % (Auto) 86.7 % 06/30/24 13:19 Lymph % (Auto) 7.5 % 06/30/24 13:19 [place] % (Auto) 4.6 % 06/30/24 13:19 Eos % (Auto) 0.4 % 06/30/24 13:19 Baso % (Auto) 0.4 % 06/30/24 13:19 Neut # (Auto) 14.29 10^3/uL (1.8-7.7) H 06/30/24 13:19 Lymph # (Auto) 1.2 10^3/uL (0.8-4.8) 06/30/24 13:19 [place] # (Auto) 0.8 10^3/uL (0.2-0.9) 06/30/24 13:19 Eos # (Auto) 0.1 10^3/uL (0.0-0.8) 06/30/24 13:19 Baso # (Auto) 0.1 10^3/uL (0.0-0.1) 06/30/24 13:19 Nucleated RBC % (auto) 0 % 06/30/24 13:19 Nucleated RBCs # 0.0 /100WBC 06/30/24 13:19 Specimen Type Arterial 06/30/24 13:02 Sample Site Radial, right 06/30/24 13:02 ABG pH 7.45 (7.35-7.45) 06/30/24 13:02 ABG pCO2 48.2 mmHg (35-45) H 06/30/24 13:02 ABG pO2 71.4 mmHg (80.0-100.0) L 06/30/24 13:02 ABG PO2/FiO2 Ratio 340 06/30/24 13:02 ABG HCO3 33.5 mmol/L (22-26) H 06/30/24 13:02 ABG O2 Saturation 94.7 06/30/24 13:02 ABG Base Excess 8.2 mmol/L (-2.0-2.0) H 06/30/24 13:02 Doni Test Pos 06/30/24 13:02 A-a O2 Gradient 2.6 mmHg (5-10) L 06/30/24 13:02 Hematocrit 40.0 % (42-52) L 06/30/24 13:02 Hgb O2 Saturation 93.3 % (95-100) L 06/30/24 13:02 Carboxyhemoglobin 1.3 %THgb (0.4-20.1) 06/30/24 13:02 Methemoglobin 0.1 % (0.4-1.5) L 06/30/24 13:02 Total Hemoglobin 13.0 g/dL (14-18) L 06/30/24 13:02 Sodium 140.0 mmol/L (131-143) 06/30/24 13:02 Potassium 4.0 mmol/L (3.5-5.0) 06/30/24 13:02 Glucose 173.0 mg/dL (70-115) H 06/30/24 13:02 Ionized Calcium 1.2 mmol/L (1.1-1.4) 06/30/24 13:02 O2 Delivery Device Bipap 06/30/24 13:02 FiO2 21.0 % 06/30/24 13:02 Manager New Product ID Amh 06/30/24 13:02 Sodium 140 mmol/L (136-145) 06/30/24 13:19 Potassium 4.2 mmol/L (3.5-5.1) 06/30/24 13:19 Chloride 95 mmol/L (98-107) L 06/30/24 13:19 Carbon Dioxide 31 mmol/L (22-29) H 06/30/24 13:19 Anion Gap 18.2 (5-19) 06/30/24 13:19 BUN 16 mg/dL (6-20) 06/30/24 13:19 Creatinine 0.2 mg/dL (0.7-1.2) L 06/30/24 13:19 GFR Calculation 500.7 mL/min (90-130) H 06/30/24 13:19 Glucose 141 mg/dL (65-115) H 06/30/24 13:19 Calculated Osmolality 294 mOsm/kg (285-295) 06/30/24 13:19 Lactic Acid 1.5 mmol/L (0.5-2.2) 06/30/24 13:19 Calcium 10.1 mg/dL (8.5-10.5) 06/30/24 13:19 Total Bilirubin 0.2 mg/dL (0.15-1.2) 06/30/24 13:19 AST 22 U/L (0-40) 06/30/24 13:19 ALT 20 U/L (0-41) 06/30/24 13:19 Alkaline Phosphatase 92 U/L (40-130) 06/30/24 13:19 Total Protein 8.3 g/dL (6.6-8.7) 06/30/24 13:19 Albumin 3.8 g/dL (3.5-5.2) 06/30/24 13:19 Globulin 4.5 g/dL (1.3-4.6) 06/30/24 13:19 All radiology interpretation(s) finalized by discharge Discharge Plan Discharge Patient Disposition: Home Clinical Impression: ALS (amyotrophic lateral sclerosis), Seasonal allergic rhinitis, Chronic hypoxemic respiratory failure, Tachycardia, Weakness Condition: Stable Prescriptions: No Action sertraline [Zoloft] 20 mg/mL concentrate 50 mg feeding tube BEDTIME Rx Instructions: 2.5 ml at bedtime per (there are no dose/frequency instructions on bottle) Dificid 200 mg tablet 200 mg feeding tube Q48H 30 Days Qty: 15 3RF Rx Instructions: 1 tablet every other day for chronic suppression azithromycin 250 mg tablet 250 mg PO DAILY 30 Days Qty: 30 3RF Rx Instructions: start on day 2 of therapy tobramycin in 0.225 % NaCl 300 mg/5 mL solution for nebulization 300 mg inhalation BID 28 Days Qty: 280 0RF Rx Instructions: separate doses by at least 6 hours cetirizine 1 mg/mL Solution 10 mg PO BEDTIME Chlorpheniramine Allergy 4 mg peg-tube QAM montelukast [Singulair] 10 mg Tablet 10 mg PO DAILY azelastine 137 mcg (0.1 %) spray,non-aerosol 1 spray INTRANASAL BID famotidine 40 mg/5 mL (8 mg/mL) Suspension For Reconstitution 20 mg PO BID Rx Instructions: 2.5 ml gabapentin 250 mg/5 mL Solution 500 mg PO BEDTIME Rx Instructions: 10 ml riluzole 50 mg Tablet 50 mg PO BID Rx Instructions: administer on an empty stomach, at least 1 hour before or 2 hours after food/meal(s) nortriptyline 10 mg/5 mL Solution 30 mg feeding tube BEDTIME scopolamine base 1 mg over 3 days Patch 3 Day 0.5 patch TRANSDERMAL Q2D acetaminophen 500 mg/15 mL Liquid 1,000 mg feeding tube Q4-5H PRN (Reason: Fever) guaifenesin [Jing-Tussin] 100 mg/5 mL Liquid 600 mg PO TID Discharge Orders: Discharge ED (Routine); Ordered 06/30/24 Ordered By: Francoise Lozano Referrals: Jossy Keene MD [Hospitalist] - 4-7 days (Call for appointment as instructed by Dr. Keene) Chel Weinstein, [employer] [Primary Care Provider] - Discharge Diet: Usual diet Discharge Activity: Increase activity as tolerated Patient Instructions: Opioid Safety, Pain Management Activity Restrictions/Additional Instructions: Thank you for choosing [facility] for your healthcare needs today. Please realize this is an emergency room and that we are providing you with a medical screening exam and this may not be complete and all inclusive of all the testing and or work up that you may need to determine your ailment or severity of your illness. You have been screened and evaluated and felt safe for discharge. Health conditions do change or evolve sometimes and as such it is important that you follow up with your Primary Doctor to be re checked, 3-5 days is a general good time frame for follow up. You are always welcome to return to the ED for re assessment if your symptoms are worsening or you have new concerns Coding Level of Care Code ED Glacing Machine Tender for [facility] Yo
[2024-06-30 13:14] LABS: ABG PCO2 48.2 mmHg (35-45); ABG PH Result 7.45 (7.35-7.45); Alveolar-Arterial Oxygen Gradi 2.6 mmHg (5-10); Base Excess ABG 8.2 mmol/L (-2.0-2.0); Blood Gas Allen Test Pos; Blood Gas Operator Identificat AMH; Blood Gas Sample Site Radial, right; Blood Gas Sample Type Arterial; Carboxyhemoglobin 1.3 %THgb (0.4-20.1); HCO3 ABG 33.5 mmol/L (22-26); HGB O2 Sat 93.3 % (95-100); Ionized Calcium Level - ABG 1.2 mmol/L (1.1-1.4); Methemoglobin 0.1 % (0.4-1.5); Oxygen Device BIPAP; Oxygen Saturation ABG 94.7; PO2 ABG 71.4 mmHg (80.0-100.0); PO2 FiO2 Ratio Arterial Blood 340
[2024-06-30 13:26] LABS: Basophils # 0.1 10^3/uL (0.0-0.1); Basophils % 0.4 %; Eosinophils # 0.1 10^3/uL (0.0-0.8); Eosinophils % 0.4 %; Hematocrit 42.5 % (37-53); Lymphocytes # 1.2 10^3/uL (0.8-4.8); Lymphocytes % 7.5 %; Mean Corpuscular HGB Conc 30.4 g/dL (30-55); Mean Corpuscular Hemoglobin 28.6 pg (27-33); Mean Corpuscular Volume 94.2 fl (82-101); Mean Platelet Volume 10.2 fL (7.4-10.4); Monocytes # 0.8 10^3/uL (0.2-0.9); Monocytes % 4.6 %; Neutrophils # 14.29 10^3/uL (1.8-7.7); Neutrophils % 86.7 %; Nucleated Red Blood Cells % 0 %; Platelet Count 595 10^3/cmm (157-399); Red Blood Count 4.51 10^6/uL (3.85-5.65); White Blood Count 16.47 10^3/uL (3.29-11.43)
[2024-06-30 13:46] LABS: Lactic Sepsis W/Reflex 1.5 mmol/L (0.5-2.2)
[2024-06-30 13:47] LABS: Alanine Aminotransferase 20 U/L (0-41); Albumin Level 3.8 g/dL (3.5-5.2); Alkaline Phosphatase 92 U/L (40-130); Anion Gap 18.2 (5-19); Aspartate Amino Transferase 22 U/L (0-40); Blood Urea Nitrogen 16 mg/dL (6-20); Calcium 10.1 mg/dL (8.5-10.5); Carbon Dioxide 31 mmol/L (22-29); Chloride 95 mmol/L (98-107); Creatinine Clr Calc Pharmacy 265.2775; Globulin 4.5 g/dL (1.3-4.6); Glomerular Filtration Rate 500.7 mL/min (90-130); Glucose 141 mg/dL (65-115); Osmolality Calculated 294 mOsm/kg (285-295); Potassium 4.2 mmol/L (3.5-5.1); Sodium 140 mmol/L (136-145); Total Bilirubin 0.2 mg/dL (0.15-1.2); Total Protein 8.3 g/dL (6.6-8.7)
[2024-06-30 14:14] VITALS: PULSE 112; O2SAT 95
[2024-06-30 15:27] VITALS: PULSE 118; O2SAT 95
[2024-06-30] MEDS: cefTRIAXone 1,000 mg SDV 1000 MG IVP (15:31)
[2024-06-30] MEDS: linezolid premix 600 MG/300 ML PREMIX 300 MG IV (15:31)
[2024-06-30 16:21] VITALS: BP 117/77; PULSE 116; O2SAT 96
[2024-06-30 17:04] VITALS: BP 117/77; PULSE 119; O2SAT 96
--- NOTE | 2024-06-30 17:06 | P.CONIM_ITS ---
Providers/Reason For Consult 2 Consulting Physician/Specialty*: Jossy Keene MD/ Infectious Disease Reason for Consult*: Leukocytosis Requesting Physician: Francoise Lozano MD Primary Care Provider: MORENO Ferrara History of Present Illness History of Present Illness Silvestre Espinosa is a 53 year old male with a past medical history of progressive ALS, last NIF of -, increasingly requiring extended times on his BiPAP at home presents to the hospital with increased leukocytosis and tachycardia. Patient has had recurrent admissions here for aspiration pneumonia and C. difficile. 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 difficile afterwards as well. He is currently on Dificid every other day and chronic supression trial with azithromycin. Over the past week he had increasing nasal discharge which became extremely dry and appears to have blocked his bilateral naris. He has followed with ENT during this admission and also his primary care provider. At both of these visits extensive plugs were removed from his bilateral nares. He was having difficulty breathing as a result of this plugging. This appears to have improved some after removal of the plugs. He presents to the emergency room today as he was noted to be breathing worse than usual. His he has leukocytosis of 16,000. However has no fever. Chest x-ray today shows improvement over previous. He is tachycardic with heart rate in the 120s. Denies any chest pain. In reviewing his past heart rate trend, it appears chronically ranges between 100-1 20. Occasionally it has been in the 80s but this appears to be the lowest number. He does not have an echocardiogram in file. Echocardiogram was attempted today in the emergency room, however could not be completed due to tachycardia. His systolic blood pressure has ranged typically between 101 to 127 mmHg. Patient has a PEG tube for which he feeds exclusively. There have been no recent changes in his bowel habits. He has been compliant with chest vest, nebulization, antihistamines and scopolamine patch in an attempt to try to reduce upper airway aspiration. Review of Systems 2 General: Reports: 10 or more systems reviewed and unremarkable except in HPI and below Const: Denies: fever(s), chills or body aches Eyes: Denies: change in vision, blurry vision or photophobia ENMT: Reports: hoarseness; Denies: throat pain, enlarged tonsils, odynophagia or nasal congestion Card: Denies: chest pain, palpitations, irregular heart rhythm, edema, swelling of feet/ankles, lightheadedness, pre-syncope, dyspnea on exertion or orthopnea Resp: Denies: dyspnea, productive cough, non-productive cough, wheezing, stridor, pain on inspiration, change in phlegm color, hemoptysis or chest congestion GI: Denies: abdominal pain, nausea, vomiting, hematemesis, coffee ground emesis, dysphagia, heartburn, diarrhea, constipation, GI cramping, change in stool character, hematochezia or melena : Denies: flank pain, dysuria, urinary frequency, urinary urgency, urinary hesitancy or hematuria Musc: Denies: neck pain, back pain, extremity pain, joint swelling, joint warmth or deformity Neuro: Denies: headache(s), numbness in extremities, weakness in extremities, sensory changes, difficulty walking, frequent falls, dizziness, vertigo, behavioral changes, Slurred speech present or seizure-like activity Psych: Denies: anxiety, depression, suicidal ideation or homicidal ideation Endo: Denies: polyuria, polydipsia, tired all the time, cold intolerance or hot flashes Piero/Lymph: Denies: easy bruising or easy bleeding Medications/Allergies Home Medications Medication Instructions Recorded Confirmed Last Taken Type sertraline 20 mg/mL oral 50 mg feeding tube BEDTIME 05/16/23 06/30/24 06/29/24 History concentrate (Zoloft) cetirizine 1 mg/mL oral solution 10 mg PO BEDTIME 10/16/23 06/30/24 06/29/24 History famotidine 40 mg/5 mL (8 mg/mL) 20 mg PO BID 12/13/23 06/30/24 06/30/24 History oral suspension gabapentin 250 mg/5 mL oral 500 mg PO BEDTIME 12/13/23 06/30/24 06/29/24 History solution acetaminophen 500 mg/15 mL oral 1,000 mg feeding tube Q4-5H PRN 01/08/24 06/30/24 06/13/24 23:25 History liquid Fever guaifenesin 100 mg/5 mL oral 600 mg PO TID 01/08/24 06/30/24 06/30/24 History liquid (Jing-Tussin) nortriptyline 10 mg/5 mL oral 30 mg feeding tube BEDTIME 01/08/24 06/30/24 06/29/24 History solution riluzole 50 mg tablet 50 mg PO BID 01/08/24 06/30/24 06/30/24 History scopolamine base 1 mg over 3 days 0.5 patch transdermal Q2D 01/08/24 06/30/24 06/13/24 History transdermal patch Chlorpheniramine Allergy 4 mg peg-tube QAM 05/12/24 06/30/24 06/30/24 History azithromycin 250 mg tablet 250 mg PO DAILY chronic 06/10/24 06/30/24 06/30/24 Rx suppression 30 days #30 tabs fidaxomicin 200 mg tablet (Dificid) 200 mg feeding tube Q48H 30 days 06/10/24 06/30/24 06/30/24 Rx #15 tabs tobramycin 300 mg/5 mL in 0.225 % 300 mg (5 mL) inhalation BID 28 06/25/24 06/30/24 06/30/24 Rx sodium chloride for nebulization days #280 mL azelastine 137 mcg (0.1 %) nasal 1 spray intranasal BID 06/30/24 06/30/24 06/30/24 History spray cefdinir 300 mg capsule 300 mg PO BID 10 days #20 caps 06/30/24 Unknown Rx montelukast 10 mg tablet 10 mg PO DAILY 06/30/24 06/30/24 06/30/24 History (Singulair) Allergies Allergy/AdvReac Type Severity Reaction Status Date / Time No Known Allergies Allergy Verified 06/30/24 12:19 PFSH Acute 2 PFSH: Medical History 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 difficile enteritis Ulcerative (chronic) enterocolitis ALS (amyotrophic lateral sclerosis) Diagnosed in 2018 Surgical History History of oral surgery History of esophageal surgery Family History Denies family history of Diabetes Hypertension Social History Smoking and tobacco/nicotine status: never used tobacco/nicotine Alcohol intake: never Substance/Drug Use: never Vitals/I&O/Wt Last Vital Signs Temp 97.4 F L 06/30/24 12:07 Pulse 119 H 06/30/24 17:04 Resp 28 H 06/30/24 12:07 BP 117/77 06/30/24 17:04 Pulse Ox 96 06/30/24 17:04 O2 Del Method BiPAP 06/30/24 15:27 Weight last 48 hrs Weight 43.908 kg Physical Exam 2 Narrative: General: No acute distress, AO x3 HEENT: PERRLA, pupils bilaterally equal and reactive, pallors not present Chest: coarse B/L breath sounds, no crackles or wheezing CVS: S1-S2 regular, tachycardia Data 06/30/24 13:19 06/30/24 13:19 Other data: Radiology Impressions Chest X-Ray 06/30/24 12:38 IMPRESSION: Right basilar infiltrate has improved somewhat over the past few weeks Laboratory Results WBC 16.47 10^3/uL (3.29-11.43) H 06/30/24 13:19 RBC 4.51 10^6/uL (3.85-5.65) 06/30/24 13:19 Hgb 12.90 g/dL (11.27-16.99) 06/30/24 13:19 Hct 42.5 % (37-53) 06/30/24 13:19 MCV 94.2 fl (82-101) 06/30/24 13:19 MCH 28.6 pg (27-33) 06/30/24 13:19 MCHC 30.4 g/dL (30-55) 06/30/24 13:19 RDW 17.0 % (12.1-15.1) H 06/30/24 13:19 Plt Count 595 10^3/cmm (157-399) H 06/30/24 13:19 MPV 10.2 fL (7.4-10.4) 06/30/24 13:19 Neut % (Auto) 86.7 % 06/30/24 13:19 Lymph % (Auto) 7.5 % 06/30/24 13:19 [place] % (Auto) 4.6 % 06/30/24 13:19 Eos % (Auto) 0.4 % 06/30/24 13:19 Baso % (Auto) 0.4 % 06/30/24 13:19 Neut # (Auto) 14.29 10^3/uL (1.8-7.7) H 06/30/24 13:19 Lymph # (Auto) 1.2 10^3/uL (0.8-4.8) 06/30/24 13:19 [place] # (Auto) 0.8 10^3/uL (0.2-0.9) 06/30/24 13:19 Eos # (Auto) 0.1 10^3/uL (0.0-0.8) 06/30/24 13:19 Baso # (Auto) 0.1 10^3/uL (0.0-0.1) 06/30/24 13:19 Nucleated RBC % (auto) 0 % 06/30/24 13:19 Nucleated RBCs # 0.0 /100WBC 06/30/24 13:19 Specimen Type Arterial 06/30/24 13:02 Sample Site Radial, right 06/30/24 13:02 ABG pH 7.45 (7.35-7.45) 06/30/24 13:02 ABG pCO2 48.2 mmHg (35-45) H 06/30/24 13:02 ABG pO2 71.4 mmHg (80.0-100.0) L 06/30/24 13:02 ABG PO2/FiO2 Ratio 340 06/30/24 13:02 ABG HCO3 33.5 mmol/L (22-26) H 06/30/24 13:02 ABG O2 Saturation 94.7 06/30/24 13:02 ABG Base Excess 8.2 mmol/L (-2.0-2.0) H 06/30/24 13:02 Doni Test Pos 06/30/24 13:02 A-a O2 Gradient 2.6 mmHg (5-10) L 06/30/24 13:02 Hematocrit 40.0 % (42-52) L 06/30/24 13:02 Hgb O2 Saturation 93.3 % (95-100) L 06/30/24 13:02 Carboxyhemoglobin 1.3 %THgb (0.4-20.1) 06/30/24 13:02 Methemoglobin 0.1 % (0.4-1.5) L 06/30/24 13:02 Total Hemoglobin 13.0 g/dL (14-18) L 06/30/24 13:02 Sodium 140.0 mmol/L (131-143) 06/30/24 13:02 Potassium 4.0 mmol/L (3.5-5.0) 06/30/24 13:02 Glucose 173.0 mg/dL (70-115) H 06/30/24 13:02 Ionized Calcium 1.2 mmol/L (1.1-1.4) 06/30/24 13:02 O2 Delivery Device Bipap 06/30/24 13:02 FiO2 21.0 % 06/30/24 13:02 Equipment Operation Instructor ID Amh 06/30/24 13:02 Sodium 140 mmol/L (136-145) 06/30/24 13:19 Potassium 4.2 mmol/L (3.5-5.1) 06/30/24 13:19 Chloride 95 mmol/L (98-107) L 06/30/24 13:19 Carbon Dioxide 31 mmol/L (22-29) H 06/30/24 13:19 Anion Gap 18.2 (5-19) 06/30/24 13:19 BUN 16 mg/dL (6-20) 06/30/24 13:19 Creatinine 0.2 mg/dL (0.7-1.2) L 06/30/24 13:19 GFR Calculation 500.7 mL/min (90-130) H 06/30/24 13:19 Glucose 141 mg/dL (65-115) H 06/30/24 13:19 Calculated Osmolality 294 mOsm/kg (285-295) 06/30/24 13:19 Lactic Acid 1.5 mmol/L (0.5-2.2) 06/30/24 13:19 Calcium 10.1 mg/dL (8.5-10.5) 06/30/24 13:19 Total Bilirubin 0.2 mg/dL (0.15-1.2) 06/30/24 13:19 AST 22 U/L (0-40) 06/30/24 13:19 ALT 20 U/L (0-41) 06/30/24 13:19 Alkaline Phosphatase 92 U/L (40-130) 06/30/24 13:19 Total Protein 8.3 g/dL (6.6-8.7) 06/30/24 13:19 Albumin 3.8 g/dL (3.5-5.2) 06/30/24 13:19 Globulin 4.5 g/dL (1.3-4.6) 06/30/24 13:19 A&P Assessment and plan (1) Leukocytosis: Currently without fever, blood pressure is well-maintained. Patient otherwise appears to be at clinical baseline. Chest x-ray showing improved infiltrate compared to previously. No new infiltrates are noted. Leukocytosis may be related to transient plugging, recent clearing of nasal passages, possible sinusitis which may have led to increased nasal discharge recently. Patient has recently added a humidifier. No sinus tenderness on exam. No bleeding currently. Will administer dose of ceftriaxone 1 g IV now and linezolid 600 mg x 1 now for possible sinusitis. Thereafter may be discharged on cefuroxime 500 mg twice daily and continue chronic suppression with azithromycin. Recently tobramycin and elation was added in an attempt to reduce aspiration pneumonia. May hold off on starting this for now given that chest x-ray is in fact showing an improved infiltrate. recheck WBC count on Monday (today is monday)- will follow as outpatient Coding Level of Care Code Acute Code for Chg Fwd Moderate MDM includes number and complexity of problems actively addressed during encounter, amount and/or complexity of data reviewed/ordered and described risk of complication, morbidity or mortality of management as documented Diagnoses Leukocytosis D72.829
== END 2024-06-30 17:06 | disposition home or self-care (01) ==
PROVIDERS: Emergency Provider Emergency Medicine; PCP Nurse Practitioner
DX: G12.21 Amyotrophic lateral sclerosis (principal); J30.2 Other seasonal allergic rhinitis; J96.91 Respiratory failure, unspecified with hypoxia; R00.0 Tachycardia, unspecified; R53.1 Weakness
CPT/HCPCS: 36600; 71045; 80051; 80053; 82330; 82805; 83605; 85025; 93005; 96374; 96375; 99285; J0696; J2020